=== PATIENT | male | born 1950 | race Caucasian/White ===

== ENCOUNTER 2020-03-11 06:45 | Outpatient (REF) | payer MEDICARE, OTHER, SELFPAY ==
[2020-03-11 11:22] LABS: MANUAL DIFF FLAG NO
[2020-03-11 11:32] LABS: Basophils Absolute Auto 0.1 X10*3/uL (0.0-0.2); Basophils Percent Auto 1.2 % (0-2); Eosinophils Absolute Auto 0.5 X10*3/uL (0.0-0.4); Eosinophils Percent Auto 5.6 % (0-4); Hemoglobin 12.6 g/dl (14.0-18.0); Imm Gran Abs Auto 0.06 X10*3/uL (0.00-0.03); Imm Gran Pct Auto 0.7 % (0.0-0.4); Lymphocytes Percent Auto 23.7 % (20-40); Mean Corpuscular HGB Conc 32.3 g/dl (31.0-36.0); Mean Corpuscular Hemoglobin 30.9 pg (27.0-33.0); Mean Corpuscular Volume 95.6 fL (80-98); Mean Platelet Volume 12.3 fL (9.4-12.4); Monocytes Absolute Auto 0.6 X10*3/uL (0.1-1.2); Monocytes Percent Auto 7.3 % (2-11); Neutrophils Absolute Auto 5.1 X10*3/uL (2.0-8.3); Neutrophils Percent Auto 61.5 % (45-73); Platelet Count 189 X10*3/uL (160-400); Red Blood Count 4.08 X10*6/uL (4.60-5.80); Red Cell Distribution Width 14.6 % (11.0-16.0); White Blood Count 8.3 X10*3/uL (4.8-10.8)
[2020-03-11 11:44] LABS: Glucose Urine UA NEG (NEG); Leukocyte Esterase Urine NEG (NEG); Nitrite Urine NEG (NEG); PH 6.5 (5.0-8.0); Urine Blood NEG (NEG); Urine Ketones NEG (NEG); Urine Protein TRACE MG/DL (NEG-TRACE)
[2020-03-11 11:46] LABS: Appearance Urine CLEAR; Color Urine YELLOW
[2020-03-11 12:11] LABS: Alanine Aminotransferase 19 U/L (0-40); Albumin Level 4.3 g/dL (3.5-5.0); Alkaline Phosphatase 49 U/L (39-117); Anion Gap 16 (12-20); Aspartate Amino Transferase 16 U/L (5-37); Bilirubin Total 0.6 mg/dL (0.0-1.0); Blood Urea Nitrogen 15 mg/dL (9-16); Calcium 8.8 mg/dL (8.4-10.2); Carbon Dioxide 28 mmol/L (22-29); Chloride 102 mmol/L (96-108); Cholesterol 149 mg/dL; Creatinine Urine 153.88 mg/dL; Estimated Glomerular Filt Rate 55; Glucose Fasting 93 mg/dL (60-99); HDL Cholesterol 33 mg/dL; LDL Cholesterol Calculated 47 mg/dl; Magnesium 1.2 mg/dL (1.6-2.6); Microalbum/Creatinine Ratio Ur 46.1 ug/mg cr; Potassium 3.9 mmol/l (3.3-5.1); Prostate Specific Antigen Scr < 0.05 ng/mL (<0.05-4.0); Sodium 142 mmol/L (135-145); Total Protein 6.9 g/dL (6.5-8.0); Triglycerides 347 mg/dL
[2020-03-11 12:16] LABS: Estimated Average Glucose 131 mg/dL; Hemoglobin A1C 151.8303 umol/L; Hemoglobin A1c % 6.2 %
[2020-03-11 12:47] LABS: Reflex LDLD? No
== END 2020-03-11 06:46 | disposition home or self-care (01) ==
LOC: HO.HMGCLDS 06:45
PROVIDERS: PCP Internal Medicine; Visit Provider Internal Medicine
DX: E83.42 Hypomagnesemia (principal); E11.9 Type 2 diabetes mellitus without complications; C61 Malignant neoplasm of prostate; D64.9 Anemia, unspecified; I10 Essential (primary) hypertension; E78.1 Pure hyperglyceridemia
CPT/HCPCS: 36415; 80053; 80061; 81003; 82043; 83036; 83735; 84153; 85025

== ENCOUNTER 2020-03-30 08:10 | Outpatient (REF) | payer MEDICARE, OTHER, SELFPAY ==
[2020-03-30 12:08] LABS: Magnesium 2.1 mg/dL (1.6-2.6)
== END 2020-03-30 08:11 | disposition home or self-care (01) ==
LOC: HO.HMGCLDS 08:10
PROVIDERS: PCP Internal Medicine; Visit Provider Internal Medicine
DX: E83.42 Hypomagnesemia (principal)
CPT/HCPCS: 36415; 83735

== ENCOUNTER 2020-04-29 13:48 | Outpatient (REF) | payer MEDICARE, OTHER, SELFPAY ==
[2020-04-29 17:04] LABS: Blood Urea Nitrogen 31 mg/dL (9-16); Estimated Glomerular Filt Rate 43
== END 2020-04-29 13:49 | disposition home or self-care (01) ==
LOC: HO.HMGCLDS 13:48
PROVIDERS: PCP Internal Medicine; Visit Provider Nurse Practitioner Adult Health
DX: E11.29 Type 2 diabetes mellitus with other diabetic kidney complication (principal)
CPT/HCPCS: 36415; 82565; 84520

== ENCOUNTER 2020-05-13 11:40 | Outpatient (REF) | payer MEDICARE, OTHER, SELFPAY ==
[2020-05-13 14:27] LABS: Blood Urea Nitrogen 20 mg/dL (9-16); Estimated Glomerular Filt Rate 51
== END 2020-05-13 11:41 | disposition home or self-care (01) ==
LOC: HO.HMGCLDS 11:40
PROVIDERS: PCP Internal Medicine; Visit Provider Internal Medicine
DX: R79.89 Other specified abnormal findings of blood chemistry (principal)
CPT/HCPCS: 36415; 82565; 84520

== ENCOUNTER 2020-06-17 10:37 | Outpatient (REF) | payer MEDICARE, OTHER, SELFPAY ==
--- NOTE | ~2020-06-17 | XR_ITS ---
EXAMINATION: XR CHEST CLINICAL INFORMATION: Emphysema COMPARISON: None TECHNIQUE: 2 views of the chest were obtained. FINDINGS: The heart does not appear enlarged. The thoracic aorta is very tortuous, particularly the descending thoracic aorta. The descending thoracic aorta measures 5 cm in AP dimension not accounting for magnification on the lateral view and may be ectatic. The better assessed with CT or MR of the chest. Hilar and mediastinal contours are otherwise unremarkable. There is mild right apical pleural thickening. The lungs are otherwise clear. The lungs are well inflated. There is no pleural effusion or pneumothorax. There are mild degenerative changes of the spine. XR/XR chest 2V IMPRESSION: Tortuous and question ectatic thoracic aorta. Descending thoracic aorta measures 5.1 cm in AP dimension not accounting for magnification on the lateral view questionable for dilatation or ectasia. This could be better assessed with CT or MR. Well-inflated lungs.
== END 2020-06-17 10:38 | disposition home or self-care (01) ==
LOC: HO.XRAY 10:37
PROVIDERS: PCP Internal Medicine; Visit Provider Internal Medicine
DX: J43.9 Emphysema, unspecified (principal); Z87.891 Personal history of nicotine dependence; Z79.899 Other long term (current) drug therapy
CPT/HCPCS: 71046; 99202

== ENCOUNTER 2020-07-12 08:47 | Outpatient (REF) | payer MEDICARE, OTHER, SELFPAY ==
--- NOTE | 2020-07-12 17:02 | PFT_ITS ---
INDICATION: Emphysema. SPIROMETRY: FEV1 to FVC 65% with an FEV1 of 2.49 L, which is 78% predicted and FVC of 3.84 L which is 88% predicted. No significant response to bronchodilators noted. Maximum voluntary ventilation 76% predicted. LUNG VOLUMES: Total lung capacity 91% predicted. DIFFUSION CAPACITY: DLCO 33% predicted. INTERPRETATION: There is an obstructive ventilatory defect consistent with moderate COPD. The patient did not have any significant response to bronchodilators noted. There is a mild decrease in maximum voluntary ventilation secondary to deconditioning. Lung volumes do demonstrate a trend of air trapping consistent with COPD. In addition to that, the patient does have severe diffusion impairment secondary to likely emphysema and other parenchymal lung conditions should be considered. Clinical correlation warranted. MD BIENVENIDO Newman/RENEE / [id number]
== END 2020-07-12 08:48 | disposition home or self-care (01) ==
LOC: HO.RESP 08:47
PROVIDERS: PCP Internal Medicine; Visit Provider Internal Medicine
DX: J43.9 Emphysema, unspecified (principal)
CPT/HCPCS: 94060; 94727; 94729; 99212; P9047

== ENCOUNTER 2021-05-12 09:49 | Outpatient (REF) | payer MEDICARE, OTHER, SELFPAY ==
[2021-05-12 11:20] LABS: Hematocrit 37.1 % (42.0-52.0); Hemoglobin 11.8 g/dl (14.0-18.0); Mean Corpuscular HGB Conc 31.8 g/dl (31.0-36.0); Mean Corpuscular Hemoglobin 27.5 pg (27.0-33.0); Mean Corpuscular Volume 86.5 fL (80.0-98.0); Platelet Count 226 X10*3/uL (160-400); Red Blood Count 4.29 X10*6/uL (4.60-5.80); Red Cell Distribution Width 17.2 % (11.0-16.0); White Blood Count 17.5 X10*3/uL (4.8-10.8)
[2021-05-12 11:22] LABS: Appearance Urine HAZY; Color Urine YELLOW; Glucose Urine UA NEG (NEG); Leukocyte Esterase Urine NEG (NEG); Nitrite Urine NEG (NEG); Urine Blood NEG (NEG); Urine Ketones NEG (NEG); Urine Protein TRACE MG/DL (NEG-TRACE)
[2021-05-12 11:36] LABS: Alanine Aminotransferase 24 U/L (0-40); Albumin Level 4.3 g/dL (3.5-5.0); Alkaline Phosphatase 37 U/L (39-117); Anion Gap 16 (12-20); Aspartate Amino Transferase 11 U/L (5-37); Bilirubin Total 0.8 mg/dL (0.0-1.0); Blood Urea Nitrogen 31 mg/dL (9-16); Calcium 9.7 mg/dL (8.4-10.2); Carbon Dioxide 23 mmol/L (22-29); Chloride 102 mmol/L (96-108); Cholesterol 166 mg/dL; Estimated Glomerular Filt Rate 47; Glucose Fasting 147 mg/dL (60-99); HDL Cholesterol 45 mg/dL; LDL Cholesterol Calculated 82 mg/dl; Magnesium 2.1 mg/dL (1.6-2.6); Potassium 4.9 mmol/L (3.3-5.1); Sodium 136 mmol/L (135-145); Total Protein 7.1 g/dL (6.5-8.0); Triglycerides 198 mg/dL
[2021-05-12 11:59] LABS: Band Neutrophils Percent 4 % (3-5); Eosinophils Absolute Manual 0.4 X10*3/uL (0.0-0.4); Eosinophils Percent Manual 2 % (0-4); Lymphocytes Absolute Manual 1.4 X10*3/uL (1.2-4.9); Lymphocytes Percent Manual 8 % (20-40); Metamyelocytes Absolute 0.5 X10*3/uL; Metamyelocytes Percent 3 %; Monocytes Absolute Manual 0.5 X10*3/uL (0.1-1.2); Monocytes Percent Manual 3 % (2-11); Myelocytes Absolute 0.4 X10*/uL; Myelocytes Percent 2 %; Neutrophils Absolute Manual 14.4 X10*3/uL (2.0-8.3); Neutrophils Percent Manual 78 % (45-73)
[2021-05-12 12:00] LABS: Macrocytosis 1+ (5-14) /OIF; Microcytosis 1+ (5-14) /OIF; Platelet Estimate NORMAL (NORMAL); Platelet Morphology Comment NORMAL; RBC Morphology NOTED
[2021-05-12 12:01] LABS: Ovalocytes 1+ (5-14) /OIF; Tear Drop Cells 1+ (0-2) /OIF
[2021-05-12 18:40] LABS: PSA,Total (Free>4and<10) < 0.05 ng/mL (0.00-4.00)
== END 2021-05-12 09:50 | disposition home or self-care (01) ==
LOC: HO.HMGCLDS 09:49
PROVIDERS: Visit Provider Internal Medicine
DX: D64.9 Anemia, unspecified (principal); I10 Essential (primary) hypertension; E78.1 Pure hyperglyceridemia; E83.42 Hypomagnesemia; Z12.5 Encounter for screening for malignant neoplasm of prostate
CPT/HCPCS: 36415; 80053; 80061; 81003; 83735; 84153; 85007; 85027

== ENCOUNTER 2021-05-19 15:58 | Outpatient (REF) | payer MEDICARE, OTHER, SELFPAY ==
[2021-05-19 16:02] LABS: MANUAL DIFF FLAG NO
[2021-05-19 16:38] LABS: Basophils Percent Auto 0.3 % (0-2); Eosinophils Absolute Auto 0.2 X10*3/uL (0.0-0.4); Eosinophils Percent Auto 1.5 % (0-4); Hematocrit 30.9 % (42.0-52.0); Hemoglobin 10.1 g/dl (14.0-18.0); Imm Gran Abs Auto 0.69 X10*3/uL (0.00-0.03); Imm Gran Pct Auto 4.9 % (0.0-0.4); Lymphocytes Absolute Auto 0.9 X10*3/uL (1.2-4.9); Lymphocytes Percent Auto 6.6 % (20-40); Mean Corpuscular HGB Conc 32.7 g/dl (31.0-36.0); Mean Corpuscular Hemoglobin 28.6 pg (27.0-33.0); Mean Corpuscular Volume 87.5 fL (80.0-98.0); Mean Platelet Volume 10.2 fL (9.4-12.4); Monocytes Absolute Auto 1.3 X10*3/uL (0.1-1.2); Monocytes Percent Auto 8.9 % (2-11); Neutrophils Absolute Auto 10.9 x10*3/uL (2.0-8.3); Neutrophils Percent Auto 77.8 % (45-73); Platelet Count 175 X10*3/uL (160-400); Red Blood Count 3.53 X10*6/uL (4.60-5.80); Red Cell Distribution Width 17.6 % (11.0-16.0)
== END 2021-05-19 15:59 | disposition home or self-care (01) ==
LOC: HO.LNP 15:58
PROVIDERS: Visit Provider Internal Medicine
DX: D64.9 Anemia, unspecified (principal)
CPT/HCPCS: 81206; 81207; 85025

== ENCOUNTER 2021-05-23 10:42 | Outpatient (REF) | payer MEDICARE, OTHER, SELFPAY ==
[2021-05-23 10:45] LABS: MANUAL DIFF FLAG NO
[2021-05-23 11:33] LABS: Basophils Percent Auto 0.1 % (0-2); Eosinophils Absolute Auto 0.2 X10*3/uL (0.0-0.4); Eosinophils Percent Auto 1.1 % (0-4); Hematocrit 31.3 % (42.0-52.0); Imm Gran Abs Auto 0.42 X10*3/uL (0.00-0.03); Imm Gran Pct Auto 3.1 % (0.0-0.4); Lymphocytes Absolute Auto 0.9 X10*3/uL (1.2-4.9); Lymphocytes Percent Auto 6.4 % (20-40); Mean Corpuscular HGB Conc 31.9 g/dl (31.0-36.0); Mean Corpuscular Hemoglobin 27.9 pg (27.0-33.0); Mean Corpuscular Volume 87.4 fL (80.0-98.0); Mean Platelet Volume 10.5 fL (9.4-12.4); Monocytes Percent Auto 7.5 % (2-11); Neutrophils Absolute Auto 11.1 x10*3/uL (2.0-8.3); Neutrophils Percent Auto 81.8 % (45-73); Platelet Count 200 X10*3/uL (160-400); Red Blood Count 3.58 X10*6/uL (4.60-5.80); Red Cell Distribution Width 17.3 % (11.0-16.0); White Blood Count 13.6 X10*3/uL (4.8-10.8)
== END 2021-05-23 10:43 | disposition home or self-care (01) ==
LOC: HO.LNP 10:42
PROVIDERS: Visit Provider Internal Medicine
DX: D64.9 Anemia, unspecified (principal)
CPT/HCPCS: 85025

== ENCOUNTER 2021-06-16 11:04 | Outpatient (REF) | payer MEDICARE, OTHER, SELFPAY ==
[2021-06-16 11:57] LABS: Hematocrit 29.9 % (42.0-52.0); Hemoglobin 9.5 g/dl (14.0-18.0); Mean Corpuscular HGB Conc 31.8 g/dl (31.0-36.0); Mean Corpuscular Hemoglobin 28.3 pg (27.0-33.0); Mean Platelet Volume 10.7 fL (9.4-12.4); Platelet Count 302 X10*3/uL (160-400); Red Blood Count 3.36 X10*6/uL (4.60-5.80)
[2021-06-16 12:22] LABS: Blood Urea Nitrogen 20 mg/dL (9-16); Estimated Glomerular Filt Rate > 60
[2021-06-16 12:36] LABS: Band Neutrophils Percent 4 % (3-5); Eosinophils Absolute Manual 0.2 X10*3/uL (0.0-0.4); Eosinophils Percent Manual 2 % (0-4); Lymphocytes Percent Manual 11 % (20-40); Metamyelocytes Absolute 0.5 X10*3/uL; Metamyelocytes Percent 5 %; Monocytes Absolute Manual 0.6 X10*3/uL (0.1-1.2); Monocytes Percent Manual 7 % (2-11); Myelocytes Absolute 0.1 X10*/uL; Myelocytes Percent 1 %; Neutrophils Absolute Manual 6.6 X10*3/uL (2.0-8.3); Neutrophils Percent Manual 69 % (45-73); Promyelocytes Absolute 0.1 X10*3/uL; Promyelocytes Percent 1 %
[2021-06-16 12:40] LABS: Platelet Estimate NORMAL (NORMAL); Platelet Morphology Comment NORMAL
[2021-06-16 12:41] LABS: Macrocytosis 1+ (5-14) /OIF; Ovalocytes 1+ (5-14) /OIF; Polychromasia 1+ (0-2) /OIF; RBC Morphology NOTED
== END 2021-06-16 11:05 | disposition home or self-care (01) ==
LOC: HO.LNP 11:04
PROVIDERS: Visit Provider Internal Medicine
DX: D72.829 Elevated white blood cell count, unspecified (principal); R79.9 Abnormal finding of blood chemistry, unspecified
CPT/HCPCS: 82565; 84520; 85007; 85025; 85027

== ENCOUNTER 2021-06-23 11:59 | Outpatient (REF) | payer MEDICARE, OTHER, SELFPAY ==
[2021-06-23 12:07] LABS: MANUAL DIFF FLAG NO
[2021-06-23 12:12] LABS: Basophils Percent Auto 0.5 % (0-2); Eosinophils Absolute Auto 0.1 X10*3/uL (0.0-0.4); Eosinophils Percent Auto 1.3 % (0-4); Hematocrit 28.3 % (42.0-52.0); Hemoglobin 8.8 g/dl (14.0-18.0); Imm Gran Abs Auto 0.15 X10*3/uL (0.00-0.03); Imm Gran Pct Auto 1.8 % (0.0-0.4); Lymphocytes Absolute Auto 1.5 X10*3/uL (1.2-4.9); Lymphocytes Percent Auto 17.3 % (20-40); Mean Corpuscular HGB Conc 31.1 g/dl (31.0-36.0); Mean Corpuscular Hemoglobin 28.5 pg (27.0-33.0); Mean Corpuscular Volume 91.6 fL (80.0-98.0); Mean Platelet Volume 10.9 fL (9.4-12.4); Monocytes Percent Auto 12.1 % (2-11); Neutrophils Absolute Auto 5.7 x10*3/uL (2.0-8.3); Platelet Count 201 X10*3/uL (160-400); Red Blood Count 3.09 X10*6/uL (4.60-5.80); Red Cell Distribution Width 20.3 % (11.0-16.0); White Blood Count 8.5 X10*3/uL (4.8-10.8)
== END 2021-06-23 12:00 | disposition home or self-care (01) ==
LOC: HO.LNP 11:59
PROVIDERS: PCP Internal Medicine; Visit Provider Internal Medicine
DX: D72.829 Elevated white blood cell count, unspecified (principal)
CPT/HCPCS: 85025

== ENCOUNTER 2021-07-08 15:47 | Outpatient (REF) | payer MEDICARE, OTHER, SELFPAY ==
[2021-07-08 15:51] LABS: MANUAL DIFF FLAG NO
[2021-07-08 15:55] LABS: Basophils Absolute Auto 0.1 X10*3/uL (0.0-0.2); Basophils Percent Auto 0.9 % (0-2); Eosinophils Absolute Auto 0.2 X10*3/uL (0.0-0.4); Hematocrit 31.8 % (42.0-52.0); Hemoglobin 10.2 g/dl (14.0-18.0); Imm Gran Abs Auto 0.22 X10*3/uL (0.00-0.03); Imm Gran Pct Auto 2.1 % (0.0-0.4); Lymphocytes Absolute Auto 1.6 X10*3/uL (1.2-4.9); Lymphocytes Percent Auto 15.7 % (20-40); Mean Corpuscular HGB Conc 32.1 g/dl (31.0-36.0); Mean Corpuscular Volume 93.5 fL (80.0-98.0); Monocytes Absolute Auto 0.9 X10*3/uL (0.1-1.2); Monocytes Percent Auto 8.8 % (2-11); Neutrophils Absolute Auto 7.2 x10*3/uL (2.0-8.3); Neutrophils Percent Auto 70.5 % (45-73); Platelet Count 304 X10*3/uL (160-400); Red Cell Distribution Width 18.9 % (11.0-16.0); White Blood Count 10.3 X10*3/uL (4.8-10.8)
[2021-07-08 16:08] LABS: Magnesium 1.5 mg/dL (1.6-2.6); Potassium 4.8 mmol/L (3.3-5.1)
== END 2021-07-08 15:48 | disposition home or self-care (01) ==
LOC: HO.LNP 15:47
PROVIDERS: Visit Provider Internal Medicine
DX: E83.42 Hypomagnesemia (principal); D64.9 Anemia, unspecified
CPT/HCPCS: 83735; 84132; 85025

== ENCOUNTER 2021-08-01 15:55 | Outpatient (REF) | payer MEDICARE, OTHER, SELFPAY ==
[2021-08-01 16:01] LABS: MANUAL DIFF FLAG NO
[2021-08-01 16:13] LABS: Basophils Absolute Auto 0.1 X10*3/uL (0.0-0.2); Basophils Percent Auto 0.8 % (0-2); Eosinophils Absolute Auto 0.2 X10*3/uL (0.0-0.4); Eosinophils Percent Auto 1.7 % (0-4); Hematocrit 31.3 % (42.0-52.0); Hemoglobin 9.8 g/dl (14.0-18.0); Imm Gran Abs Auto 0.18 X10*3/uL (0.00-0.03); Lymphocytes Percent Auto 21.6 % (20-40); Mean Corpuscular HGB Conc 31.3 g/dl (31.0-36.0); Mean Corpuscular Hemoglobin 29.3 pg (27.0-33.0); Mean Corpuscular Volume 93.4 fL (80.0-98.0); Mean Platelet Volume 11.3 fL (9.4-12.4); Monocytes Absolute Auto 0.9 X10*3/uL (0.1-1.2); Monocytes Percent Auto 9.7 % (2-11); Neutrophils Absolute Auto 5.9 x10*3/uL (2.0-8.3); Neutrophils Percent Auto 64.2 % (45-73); Platelet Count 272 X10*3/uL (160-400); Red Blood Count 3.35 X10*6/uL (4.60-5.80); White Blood Count 9.2 X10*3/uL (4.8-10.8)
[2021-08-01 16:43] LABS: Magnesium 1.3 mg/dL (1.6-2.6)
== END 2021-08-01 15:56 | disposition home or self-care (01) ==
LOC: HO.LNP 15:55
PROVIDERS: Visit Provider Internal Medicine
DX: D64.9 Anemia, unspecified (principal); E83.42 Hypomagnesemia
CPT/HCPCS: 83735; 85025

== ENCOUNTER 2021-08-12 11:43 | Outpatient (REF) | payer MEDICARE, OTHER, SELFPAY ==
[2021-08-12 11:47] LABS: MANUAL DIFF FLAG NO
[2021-08-12 12:37] LABS: Basophils Absolute Auto 0.1 X10*3/uL (0.0-0.2); Basophils Percent Auto 0.6 % (0-2); Eosinophils Absolute Auto 0.1 X10*3/uL (0.0-0.4); Eosinophils Percent Auto 0.6 % (0-4); Hematocrit 32.8 % (42.0-52.0); Hemoglobin 10.2 g/dl (14.0-18.0); Imm Gran Abs Auto 0.17 X10*3/uL (0.00-0.03); Imm Gran Pct Auto 1.3 % (0.0-0.4); Lymphocytes Absolute Auto 1.7 X10*3/uL (1.2-4.9); Lymphocytes Percent Auto 13.4 % (20-40); Mean Corpuscular HGB Conc 31.1 g/dl (31.0-36.0); Mean Corpuscular Hemoglobin 29.2 pg (27.0-33.0); Mean Platelet Volume 11.4 fL (9.4-12.4); Monocytes Absolute Auto 1.2 X10*3/uL (0.1-1.2); Monocytes Percent Auto 9.6 % (2-11); Neutrophils Absolute Auto 9.4 x10*3/uL (2.0-8.3); Neutrophils Percent Auto 74.5 % (45-73); Platelet Count 300 X10*3/uL (160-400); Red Blood Count 3.49 X10*6/uL (4.60-5.80); White Blood Count 12.7 X10*3/uL (4.8-10.8)
[2021-08-12 13:03] LABS: Iron 31 mcg/dL (45-160); Magnesium 2.4 mg/dL (1.6-2.6)
[2021-08-12 13:30] LABS: Folate 19.6 ng/mL (> or = 4.0); Vitamin B12 647 pg/mL (200-900)
[2021-08-12 13:34] LABS: Percent Iron Saturation 8 % (15-50); Total Iron Binding Capacity 382 mcg/dL (228-428); Unsaturated Iron Binding 351 ug/dL
== END 2021-08-12 11:44 | disposition home or self-care (01) ==
LOC: HO.LNP 11:43
PROVIDERS: Visit Provider Internal Medicine
DX: D64.9 Anemia, unspecified (principal); E83.42 Hypomagnesemia
CPT/HCPCS: 82607; 82746; 83540; 83735; 85025

== ENCOUNTER 2021-08-29 16:27 | Outpatient (REF) | payer MEDICARE, OTHER, SELFPAY ==
[2021-08-29 16:31] LABS: MANUAL DIFF FLAG NO
[2021-08-29 16:52] LABS: Basophils Absolute Auto 0.1 X10*3/uL (0.0-0.2); Basophils Percent Auto 0.7 % (0-2); Eosinophils Absolute Auto 0.2 X10*3/uL (0.0-0.4); Eosinophils Percent Auto 1.7 % (0-4); Hemoglobin 9.1 g/dl (14.0-18.0); Imm Gran Abs Auto 0.13 X10*3/uL (0.00-0.03); Imm Gran Pct Auto 1.2 % (0.0-0.4); Lymphocytes Absolute Auto 2.1 X10*3/uL (1.2-4.9); Lymphocytes Percent Auto 18.5 % (20-40); Mean Corpuscular HGB Conc 30.3 g/dl (31.0-36.0); Mean Corpuscular Hemoglobin 28.5 pg (27.0-33.0); Mean Platelet Volume 10.9 fL (9.4-12.4); Monocytes Absolute Auto 0.8 X10*3/uL (0.1-1.2); Monocytes Percent Auto 7.5 % (2-11); Neutrophils Absolute Auto 7.8 x10*3/uL (2.0-8.3); Neutrophils Percent Auto 70.4 % (45-73); Platelet Count 385 X10*3/uL (160-400); Red Blood Count 3.19 X10*6/uL (4.60-5.80); White Blood Count 11.1 X10*3/uL (4.8-10.8)
[2021-08-29 17:05] LABS: Magnesium 2.2 mg/dL (1.6-2.6); Potassium 4.9 mmol/L (3.3-5.1)
== END 2021-08-29 16:28 | disposition home or self-care (01) ==
LOC: HO.LNP 16:27
PROVIDERS: Visit Provider Internal Medicine
DX: D64.9 Anemia, unspecified (principal); E78.6 Lipoprotein deficiency; E83.42 Hypomagnesemia
CPT/HCPCS: 83735; 84132; 85025

== ENCOUNTER 2021-11-18 10:50 | Outpatient (REF) | payer MEDICARE, OTHER, SELFPAY ==
[2021-11-18 10:53] LABS: MANUAL DIFF FLAG NO
[2021-11-18 10:58] LABS: Basophils Percent Auto 0.2 % (0-2); Hematocrit 35.2 % (42.0-52.0); Hemoglobin 11.2 g/dl (14.0-18.0); Imm Gran Abs Auto 0.09 X10*3/uL (0.00-0.03); Imm Gran Pct Auto 0.7 % (0.0-0.4); Lymphocytes Absolute Auto 1.1 X10*3/uL (1.2-4.9); Lymphocytes Percent Auto 8.4 % (20-40); Mean Corpuscular HGB Conc 31.8 g/dl (31.0-36.0); Mean Corpuscular Hemoglobin 28.8 pg (27.0-33.0); Mean Corpuscular Volume 90.5 fL (80.0-98.0); Mean Platelet Volume 11.5 fL (9.4-12.4); Monocytes Absolute Auto 0.9 X10*3/uL (0.1-1.2); Monocytes Percent Auto 7.3 % (2-11); Neutrophils Absolute Auto 10.6 x10*3/uL (2.0-8.3); Neutrophils Percent Auto 83.4 % (45-73); Platelet Count 305 X10*3/uL (160-400); Red Blood Count 3.89 X10*6/uL (4.60-5.80); Red Cell Distribution Width 17.8 % (11.0-16.0); White Blood Count 12.7 X10*3/uL (4.8-10.8)
[2021-11-18 11:37] LABS: Estimated Average Glucose 123 mg/dL; Hemoglobin A1c % 5.9 %
[2021-11-18 12:26] LABS: Alanine Aminotransferase 20 U/L (0-40); Albumin Level 4.4 g/dL (3.5-5.0); Alkaline Phosphatase 52 U/L (39-117); Aspartate Amino Transferase 16 U/L (5-37); Bilirubin Direct < 0.2 mg/dL (0.0-0.5); Bilirubin Total < 0.2 mg/dL (0.0-1.0); Cholesterol 125 mg/dL; Glucose Fasting 171 mg/dL (60-99); HDL Cholesterol 36 mg/dL; Iron 35 mcg/dL (45-160); LDL Cholesterol Calculated 43 mg/dl; Magnesium 2.3 mg/dL (1.6-2.6); Percent Iron Saturation 9 % (15-50); Total Iron Binding Capacity 396 mcg/dL (228-428); Triglycerides 233 mg/dL; Unsaturated Iron Binding 361 ug/dL
[2021-11-18 12:39] LABS: Reflex LDLD? No
== END 2021-11-18 10:51 | disposition home or self-care (01) ==
LOC: HO.LNP 10:50
PROVIDERS: Visit Provider Internal Medicine
DX: Z13.89 Encounter for screening for other disorder (principal)
CPT/HCPCS: 80061; 80076; 82947; 83036; 83540; 83735; 85025

== ENCOUNTER 2022-01-10 11:13 | Outpatient (REF) | payer MEDICARE, OTHER, SELFPAY ==
[2022-01-10 11:21] LABS: MANUAL DIFF FLAG NO
[2022-01-10 12:01] LABS: Anion Gap 15 (12-20); Basophils Absolute Auto 0.1 X10*3/uL (0.0-0.2); Basophils Percent Auto 0.9 % (0-2); Carbon Dioxide 24 mmol/L (22-29); Chloride 102 mmol/L (96-108); Eosinophils Absolute Auto 0.2 X10*3/uL (0.0-0.4); Eosinophils Percent Auto 1.6 % (0-4); Hematocrit 30.7 % (42.0-52.0); Hemoglobin 9.5 g/dl (14.0-18.0); Imm Gran Pct Auto 1.9 % (0.0-0.4); Lymphocytes Absolute Auto 1.7 X10*3/uL (1.2-4.9); Lymphocytes Percent Auto 16.1 % (20-40); Magnesium 2.1 mg/dL (1.6-2.6); Mean Corpuscular HGB Conc 30.9 g/dl (31.0-36.0); Mean Corpuscular Hemoglobin 28.8 pg (27.0-33.0); Mean Platelet Volume 11.4 fL (9.4-12.4); Monocytes Absolute Auto 0.9 X10*3/uL (0.1-1.2); Monocytes Percent Auto 8.7 % (2-11); Neutrophils Absolute Auto 7.4 x10*3/uL (2.0-8.3); Neutrophils Percent Auto 70.8 % (45-73); Platelet Count 192 X10*3/uL (160-400); Potassium 5.1 mmol/L (3.3-5.1); Red Cell Distribution Width 17.5 % (11.0-16.0); Sodium 136 mmol/L (135-145); White Blood Count 10.5 X10*3/uL (4.8-10.8)
[2022-01-10 13:36] LABS: Iron 52 mcg/dL (45-160); Percent Iron Saturation 17 % (15-50); Total Iron Binding Capacity 310 mcg/dL (228-428); Unsaturated Iron Binding 258 ug/dL
== END 2022-01-10 11:14 | disposition home or self-care (01) ==
LOC: HO.LNP 11:13
PROVIDERS: Visit Provider Internal Medicine
DX: D64.9 Anemia, unspecified (principal); E83.42 Hypomagnesemia
CPT/HCPCS: 80051; 83540; 83735; 85025

== ENCOUNTER → 2022-01-16 13:41 | Outpatient (REF) | payer MEDICARE, OTHER, SELFPAY ==
--- NOTE | 2022-01-16 13:44 | HM_ITS ---
Procedure: Cardiac event monitor Indication: Dizziness Technique: Patient was worked up to cardiac event monitor for total of 30 days. Very time was 15.2 days with compliance rate of about 50.5%. Quality of recording was adequate Findings: Baseline was normal sinus rhythm with frequent sinus tachycardia, 49% of time heart rate greater than 100 beats per minute. There were no significant pauses or bradycardia noted. There were frequent ventricular arrhythmias detected mostly isolated PVCs accounting for 3% of total beats Patient activated event monitor 9 times without any obvious reported symptoms correlating with sinus rhythm or sinus tachycardia. Conclusion: 1. Baseline was normal sinus rhythm with frequent sinus tachycardia 2. Frequent PVCs, 3% of total beats 3. Patient reported events correlated with sinus rhythm or sinus tachycardia MTDD
== END ==
LOC: HO.CARD 13:41
PROVIDERS: PCP Internal Medicine; Visit Provider Internal Medicine
DX: R42 Dizziness and giddiness (principal)
CPT/HCPCS: 93270

== ENCOUNTER 2022-05-04 13:35 | Outpatient (REF) | payer MEDICARE, OTHER, SELFPAY ==
[2022-05-04 17:01] LABS: Magnesium 2.3 mg/dL (1.6-2.6)
== END 2022-05-04 13:36 | disposition home or self-care (01) ==
LOC: HO.HMGCLDS 13:35
PROVIDERS: PCP Internal Medicine; Visit Provider Internal Medicine
DX: R79.0 Abnormal level of blood mineral (principal)
CPT/HCPCS: 36415; 83735

== ENCOUNTER 2022-06-12 10:46 | Outpatient (REF) | payer MEDICARE, OTHER, SELFPAY ==
[2022-06-12 10:50] LABS: MANUAL DIFF FLAG NO
[2022-06-12 11:02] LABS: Basophils Absolute Auto 0.1 X10*3/uL (0.0-0.2); Basophils Percent Auto 0.9 % (0-2); Eosinophils Absolute Auto 0.2 X10*3/uL (0.0-0.4); Eosinophils Percent Auto 1.7 % (0-4); Hematocrit 33.7 % (42.0-52.0); Hemoglobin 10.5 g/dl (14.0-18.0); Imm Gran Pct Auto 1.1 % (0.0-0.4); Lymphocytes Absolute Auto 1.5 X10*3/uL (1.2-4.9); Lymphocytes Percent Auto 15.8 % (20-40); Mean Corpuscular HGB Conc 31.2 g/dl (31.0-36.0); Mean Corpuscular Hemoglobin 29.3 pg (27.0-33.0); Mean Corpuscular Volume 94.1 fL (80.0-98.0); Mean Platelet Volume 11.2 fL (9.4-12.4); Monocytes Percent Auto 10.6 % (2-11); Neutrophils Absolute Auto 6.5 x10*3/uL (2.0-8.3); Neutrophils Percent Auto 69.9 % (45-73); Platelet Count 315 X10*3/uL (160-400); Red Blood Count 3.58 X10*6/uL (4.60-5.80); White Blood Count 9.3 X10*3/uL (4.8-10.8)
[2022-06-12 11:18] LABS: Estimated Average Glucose 120 mg/dL; Hemoglobin A1c % 5.8 %
[2022-06-12 11:24] LABS: Alanine Aminotransferase 12 U/L (0-40); Albumin Level 3.8 g/dL (3.5-5.0); Alkaline Phosphatase 67 U/L (39-117); Anion Gap 13 (12-20); Aspartate Amino Transferase 9 U/L (5-37); Bilirubin Total 0.6 mg/dL (0.0-1.0); Blood Urea Nitrogen 22 mg/dL (9-16); Carbon Dioxide 27 mmol/L (22-29); Chloride 102 mmol/L (96-108); Cholesterol 133 mg/dL; Estimated Glomerular Filt Rate 27; Glucose Fasting 109 mg/dL (60-99); HDL Cholesterol 26 mg/dL; LDL Cholesterol Calculated 70 mg/dl; Magnesium 1.9 mg/dL (1.6-2.6); Potassium 4.4 mmol/L (3.3-5.1); Sodium 138 mmol/L (135-145); Total Protein 6.2 g/dL (6.5-8.0); Triglycerides 188 mg/dL
[2022-06-12 12:37] LABS: PSA,Total (Free>4and<10) < 0.10 ng/mL (0.00-4.00)
== END 2022-06-12 10:47 | disposition home or self-care (01) ==
LOC: HO.LNP 10:46
PROVIDERS: Visit Provider Internal Medicine
DX: Z12.5 Encounter for screening for malignant neoplasm of prostate (principal); E11.9 Type 2 diabetes mellitus without complications; D64.9 Anemia, unspecified; I10 Essential (primary) hypertension; E78.6 Lipoprotein deficiency; E78.1 Pure hyperglyceridemia
CPT/HCPCS: 80053; 80061; 83036; 83735; 84153; 85025

== ENCOUNTER 2022-10-13 07:30 | Outpatient (REF) | payer MEDICARE, OTHER, SELFPAY ==
[2022-10-13 12:46] LABS: Estimated Average Glucose 123 mg/dL; Hemoglobin A1c % 5.9 % (<6.0)
[2022-10-13 13:28] LABS: Alanine Aminotransferase 11 U/L (0-40); Alkaline Phosphatase 58 U/L (39-117); Aspartate Amino Transferase 17 U/L (5-37); Bilirubin Direct 0.1 mg/dL (0.0-0.5); Bilirubin Total 0.3 mg/dL (0.0-1.0); Glucose Fasting 103 mg/dL (60-99); Total Protein 6.9 g/dL (6.5-8.0)
[2022-10-13 13:30] LABS: Cholesterol 137 mg/dL (<200); HDL Cholesterol 32 mg/dL (>40); LDL Cholesterol Calculated 67 mg/dL (<100); Triglycerides 193 mg/dL (<150)
[2022-10-13 15:51] LABS: Reflex LDLD? No
== END 2022-10-13 07:31 | disposition home or self-care (01) ==
LOC: HO.LNP 07:30
PROVIDERS: Visit Provider Internal Medicine
DX: E11.9 Type 2 diabetes mellitus without complications (principal); E78.6 Lipoprotein deficiency
CPT/HCPCS: 80061; 80076; 82947; 83036

== ENCOUNTER 2022-12-19 13:39 | Outpatient (REF) | payer MEDICARE, OTHER, SELFPAY ==
[2022-12-19 16:36] LABS: Blood Urea Nitrogen 19 mg/dL (9-16); Estimated Glomerular Filt Rate 32
== END 2022-12-19 13:40 | disposition home or self-care (01) ==
LOC: HO.HMGCLDS 13:39
PROVIDERS: PCP Internal Medicine; Visit Provider Internal Medicine
DX: R79.89 Other specified abnormal findings of blood chemistry (principal)
CPT/HCPCS: 36415; 82565; 84520

== ENCOUNTER 2023-02-26 07:43 | Outpatient (REF) | payer MEDICARE, OTHER, SELFPAY | END 2023-02-26 07:44 | disposition home or self-care (01) | LOC: HO.HMGCLDS 07:43 | PROVIDERS: PCP Internal Medicine; Visit Provider Internal Medicine | DX: R79.89 Other specified abnormal findings of blood chemistry (principal) | CPT/HCPCS: 36415; 82565; 85025 ==

== ENCOUNTER 2023-04-23 11:05 | Outpatient (REF) | payer MEDICARE, OTHER, SELFPAY ==
--- NOTE | ~2023-04-23 | XR_ITS ---
EXAMINATION: XR CHEST CLINICAL INFORMATION: Bronchitis. COMPARISON: 06/17/2020 TECHNIQUE: 2 views of the chest were obtained. FINDINGS: The lungs are are hyperexpanded. There is flattening of the hemidiaphragms. There is basilar atelectasis. There is stable tortuosity and dilatation of the thoracic aorta. Cardiac silhouette is obscured. No pleural effusion. A metallic density is partially imaged projecting over the upper abdomen on the lateral projection. XR/XR chest 2V IMPRESSION: Stable examination. No acute abnormality.
== END 2023-04-23 11:06 | disposition home or self-care (01) ==
LOC: HO.HMGCX 11:05
PROVIDERS: PCP Internal Medicine; Visit Provider Internal Medicine
DX: J40 Bronchitis, not specified as acute or chronic (principal)
CPT/HCPCS: 71046

== ENCOUNTER 2023-11-05 10:34 | Outpatient (REF) | payer MEDICARE, OTHER, SELFPAY ==
[2023-11-05 10:38] LABS: MANUAL DIFF FLAG NO
[2023-11-05 11:10] LABS: Basophils Absolute Auto 0.1 X10*3/uL (0.0-0.2); Basophils Percent Auto 0.9 % (0-2); Eosinophils Absolute Auto 0.1 X10*3/uL (0.0-0.4); Eosinophils Percent Auto 1.2 % (0-4); Hematocrit 41.6 % (42.0-52.0); Hemoglobin 13.4 g/dl (14.0-18.0); Imm Gran Abs Auto 0.12 X10*3/uL (0.00-0.03); Lymphocytes Percent Auto 17.2 % (20-40); Mean Corpuscular HGB Conc 32.2 g/dl (31.0-36.0); Mean Corpuscular Hemoglobin 29.5 pg (27.0-33.0); Mean Corpuscular Volume 91.6 fL (80.0-98.0); Mean Platelet Volume 11.3 fL (9.4-12.4); Monocytes Percent Auto 8.8 % (2-11); Neutrophils Absolute Auto 8.3 x10*3/uL (2.0-8.3); Neutrophils Percent Auto 70.9 % (45-73); Platelet Count 199 X10*3/uL (160-400); Red Blood Count 4.54 X10*6/uL (4.60-5.80); Red Cell Distribution Width 15.4 % (11.0-16.0); White Blood Count 11.8 X10*3/uL (4.8-10.8)
[2023-11-05 11:13] LABS: Appearance Urine Clear; Color Urine Straw; Glucose Urine UA >=1000 mg/dL (Negative); Leukocyte Esterase Urine Negative (Negative); Nitrite Urine Negative (Negative); UMIC TRIGGER UACC YES; Urine Blood Negative (Negative); Urine Ketones Negative (Negative); Urine Protein Trace mg/dL (Neg-Trace)
[2023-11-05 11:19] LABS: Estimated Average Glucose 128 mg/dL; Hemoglobin A1c % 6.1 % (<6.0)
[2023-11-05 11:26] LABS: Alanine Aminotransferase 14 U/L (0-40); Albumin Level 4.3 g/dL (3.5-5.0); Alkaline Phosphatase 61 U/L (39-117); Anion Gap 13 (12-20); Aspartate Amino Transferase 15 U/L (5-37); Bilirubin Total 0.9 mg/dL (0.0-1.0); Blood Urea Nitrogen 17 mg/dL (9-16); Calcium 9.5 mg/dL (8.4-10.2); Carbon Dioxide 29 mmol/L (22-29); Chloride 103 mmol/L (96-108); Cholesterol 124 mg/dL (<200); Estimated Glomerular Filt Rate 45; Glucose Fasting 109 mg/dL (60-99); HDL Cholesterol 35 mg/dL (>40); LDL Cholesterol Calculated 42 mg/dL (<100); Potassium 4.6 mmol/L (3.3-5.1); Sodium 140 mmol/L (135-145); Total Protein 7.1 g/dL (6.5-8.0); Triglycerides 237 mg/dL (<150)
[2023-11-05 11:31] LABS: Bacteria Urine None Seen (None Seen); Hyaline Casts Urine 0-2 /LPF (0-2); RBC Urine 0-2 /HPF (0-2); Squamous Epithelial Cell Urine 0-2 /HPF (0-2); WBC Urine 0-5 /HPF (0-5)
[2023-11-05 11:43] LABS: PSA,Total (Free>4and<10) < 0.10 ng/mL (0.00-4.00)
[2023-11-05 12:55] LABS: Creatinine Urine 82.51 mg/dL; Microalbum/Creatinine Ratio Ur 99.3 ug/mg cr (<30)
== END 2023-11-05 10:35 | disposition home or self-care (01) ==
LOC: HO.LNP 10:34
PROVIDERS: Visit Provider Internal Medicine
DX: E11.9 Type 2 diabetes mellitus without complications (principal); D64.9 Anemia, unspecified; I10 Essential (primary) hypertension; E83.42 Hypomagnesemia; Z12.5 Encounter for screening for malignant neoplasm of prostate
CPT/HCPCS: 80053; 80061; 81001; 82043; 82570; 83036; 84153; 85025

== ENCOUNTER 2024-03-06 13:58 | Outpatient (REF) | payer MEDICARE, OTHER, SELFPAY ==
--- NOTE | ~2024-03-06 | XR_ITS ---
EXAMINATION: XR CHEST CLINICAL INFORMATION: J40 BRONCHITIS COMPARISON: X-ray dated April 23, 2023. TECHNIQUE: 2 views of the chest were obtained. FINDINGS: Hyperinflated lungs and flattening of the diaphragm. No consolidation, pleural effusion or pneumothorax. Cardiomediastinal silhouette demonstrates a tortuosity of the thoracic aorta with calcified plaques on the lateral projection demonstrates a 3 morphology pattern. There is small appearance of the heart silhouette, unchanged. Multilevel thoracic and upper lumbar spondylosis. There is a stent likely in the abdominal aorta. XR/XR chest 2V IMPRESSION: No acute airspace disease. Stable chest. Electronically signed by: Que Lopez MD 03/07/2024 12:12 PM EST
== END 2024-03-06 13:59 | disposition home or self-care (01) ==
LOC: HO.HMGCX 13:58
PROVIDERS: PCP Internal Medicine; Visit Provider Internal Medicine
DX: M51.9 Unspecified thoracic, thoracolumbar and lumbosacral intervertebral disc disorder (principal)
CPT/HCPCS: 71046

== ENCOUNTER → 2024-03-06 14:06 | Outpatient (BNV) | payer MEDICARE, OTHER, SELFPAY | PROVIDERS: PCP Internal Medicine; Visit Provider Radiology Diagnostic Radiology | DX: J40 Bronchitis, not specified as acute or chronic (principal) | CPT/HCPCS: 71046 ==

== ENCOUNTER 2024-05-05 07:11 | Outpatient (REF) | payer MEDICARE, OTHER, SELFPAY ==
--- OUTSIDE RECORDS SUMMARY | 2024-05-05 07:14 | XMS_ITS ---
Author Organization Kiko Coats MD Address [address] [place], [place] [id number] Care Team Providers Care Tool Machine Setup Operator Name Role Phone Jorge LTian Primary Care Provider [phone] Allergies No Known Allergies REASON FOR VISIT coughing, congested Tested negative for Covid this AM, c/o nonproductive cough congestion x 2 weeks, Video [phone] Medications Medication SIG (Take, Route, Frequency, Duration) Notes Start Date End Date Status PreserVision AREDS 2 - as directed Orally Active Vitamin C 500 MG as directed Orally Active predniSONE 10 MG 1 tablet with food o r milk Orally 4 tabs for 4 days, 3 tabs for 4 days, 2 tbs for 4 days, and 1 tab for 4 days for 14 days 02/25/2024 Active ProAir HFA 108 (90 Base) MCG/ACT 2 puffs as needed Inhalation every 4 hrs for 30 days Not-Taking Betamethasone Dipropionate 0.05 % as directed Externally daily for 30 days 02/10/2011 Not-Taking Ipratropium-Albuterol 0.5-2.5 (3) MG/3ML INHALE 1 VIAL EVERY 4 HOURS NEEDED INHALATION EVERY 6 HRS 30 DAYS Active valACYclovir HCl 1 GM TAKE 2 TABLETS BY MOUTH EVERY 12 HOURS for 3 Not-Taking Qvar RediHaler 80 MCG/ACT TAKE 1 PUFF BY MOUTH TWICE A DAY Not-Taking Hydrocod Pravin-Chlorphe Pravin ER 10-8 MG/5ML 5 mL as needed Orally every 12 hrs as needed for 10 days 04/26/2023 Not-Taking Albuterol Sulfate HFA 108 (90 Base) MCG/ACT 1 puff as needed Inhalation every 4 hrs 05/07/2023 Not-Takin g Levalbuterol Tartrate 45 MCG/ACT inhale 2 puffs as needed every 4 hours for 30 days Inhalation every 6 hrs Active Stiolto Respimat 2.5-2.5 MCG/ACT INHALE 2 PUFFS INTO THE LUNGS ONCE DAILY Active Jardiance 10 MG 1 tablet Orally Once a day Active Atorvastatin Calcium 40 MG TAKE 1 TABLET BY MOUTH EVERY DAY for 90 Active traMADol HCl 100 MG 1 tablet as needed Orally every 8 hours as needed for 30 days 11/23/2023 Active amLODIPine Besylate 5 MG TAKE 1 TABLET B Y MOUTH ONCE A DAY FOR 30 DAY(S) Orally Once a day Active Magnesium Oxide -Mg Supplement 400 (240 Mg) MG TAKE 2 TABLETS BY MOUTH ONCE DAILY WITH FOOD FOR 30 DAYS Active Pantoprazole Sodium 40 MG 1 tablet Orall y Once a day Active Ferrous Gluconate 324 (38 Fe) MG 1 tablet Orally once a day Active Carvedilol 25 MG 1 tablet with food Orally Twice a day Active Aspir-81 81 MG 1 tablet Orally Once a day for 30 day(s) Active Levalbuterol Tartrate 45 MCG/ACT 1 puff as needed Inhalation every 6 hrs for 30 days 03/08/2023 Active Cialis 20 MG 1 tablet Orally Once a day Active Triamcinolone Acetonide 0.5 % 1 application Externally Once a day for 14 days 11/15/2020 Active Multi Vitamin Daily - 1 tablet Orally On ce a day for 30 day(s) Active Problems Problem Type SNOMED Code ICD Code Onset Dates Problem Status W/U Status Risk Notes Problem [id number] COPD with exacerbation (J44.1) Active confirmed Vital Signs Height 70 in 02/25/2024 weight at home is 170 BP 157 /70 No temp Encounters Encounter Location Date Provider Diagnosis Kiko Coats MD [address] [place] [address] [place] [id number] 02/25/2024 Kiko Coats COPD with exacerbation J44.1 Assessments Encounter Date Diagnosis (ICD Code) Assessment Notes Treatment Notes Treatment Clinical Notes Section Notes 02/25/2024 COPD with exacerbation (ICD-10 - J44.1) patient verbalized understanding of medication and directions for use Plan Of Treatment Medication Medication Name Sig Start Date Stop Date Notes predniSONE 10 MG 1 tablet with food o r milk Orally 4 tabs for 4 days, 3 tabs for 4 days, 2 tbs for 4 days, and 1 tab for 4 days for 14 days 02/25/2024 Treatment Notes Assessment Notes COPD with exacerbation patient verbalize d understanding of medication and directions for use Next Appt Details Provider Name:Kiko chatman, 05/09/2024 10:00:00 AM, [address] [place] [address], [address], [phone], Provider Name:Kiko chatman, 11/10/2024 08:00:00 AM, [address] [place] [address], [address], [phone], Provider Name:Kiko chatman, 11/17/2024 10:30:00 AM, [address] [place] [address], [address], [phone], Progress Notes * Mikal DENNYDOB: [birth year] (73 yo M)Acc No.[id number]:02/25/2024 Patient:?Mikal Denny Provider:?Kiko Coats MD :[id number]???Age:73 Y???Sex:Male Kyle e:02/25/2024 Address:[address], [place], [place] Subjective: * Chief Complaints: * ???coughing, congested Teste d negative for Covid this AMC/o nonproductive cough congestion x 2 weeksVideo [phone] * HPI: ???Symptom(s):?Telehealth?Location of provider rendering services:?[address], [address],?Location of patient:?at address listed in demographics for today's visit,?Patient identification confirmed using:?Name, ,?Telehealth method:?Video conference where patient is visible to the provider of care,?Consent:?Patient verbally consented to treatment, Patient verbally consented to billing insurance company, Patient informed of any privacy concerns related to method of visit,?Total time spend talking with patient (minutes)?15.? patient is a 73 yo male video telehealth visit, can't stop coughing for a couple weeks. nothing coming up. * ROS:?General/Constitutional:?Denies?Chills.?Denies?Fatigue.?Denies?Fever.?Denies?Headache.?ENT:?Patient denies?decreased sense of smell , any loss of taste , sore throat.?Denies?Sore throat.?Respiratory:?Patient complaining of?c/o? chest congestion.?Admits?Cough.?Denies?Shortness of breath with exertion.?Denies?Sputum production.?Gastrointestinal:?Denies?Diarrhea.?Denies?Nausea.?Musculoskeletal:?Patient denies?muscle aches.?Peripheral Vascular:?Patient denies?red and blue toes.? * Medical History:? * Surgical History:? * Hospitalization/Major Diagno stic Procedure:? * Medications:?TakingVitamin C 500 MG Capsule as directed Orally PreserVision AREDS 2 - Capsule as directed Orally Aspir-81 81 MG Tablet Delayed Release 1 tablet Orally Once a dayMulti Vitamin Daily - Tablet 1 tablet Orally Once a dayTriamcinolone Acetonide 0.5 % Cream 1 application Externally Once a dayCialis 20 MG Tablet 1 tablet Orally Once a dayLevalbuterol Tartrate 45 MCG/ACT Aerosol 1 puff as needed Inhalation every 6 hrsFerrous Gluconate 324 (38 Fe) MG Tablet 1 tablet Orally once a dayPantoprazole Sodium 40 MG Tablet Delayed Release 1 tablet Orally Once a dayMagnesium Oxide - Mg Supplement 400 (240 Mg) MG Tablet TAKE 2 TABLETS BY MOUTH ONCE DAILY WITH FOOD FOR 30 DAYS amLODIPine Besylate 5 MG Tablet TAKE 1 TABLET BY MOUTH ONCE A DAY FOR 30 DAY(S) Orally Once a dayCarvedilol 25 MG Tablet 1 tablet with food Orally Twice a daytraMADol HCl 100 MG Tablet 1 tablet as needed Orally every 8 hours as neededAtorvastatin Calcium 40 MG Tablet TAKE 1 TABLET BY MOUTH EVERY DAY Jardiance 10 MG Tablet 1 tablet Orally Once a dayLevalbuterol Tartrate 45 MCG/ACT Aerosol inhale 2 puffs as needed every 4 hours for 30 days Inhalation every 6 hrsStiolto Respimat 2.5-2.5 MCG/ACT Aerosol Solution INHALE 2 PUFFS INTO THE LUNGS ONCE DAILY Ipratropium-Albuterol 0.5-2.5 (3) MG/3ML Solution INHALE 1 VIAL EVERY 4 HOURS NEEDED INHALATION EVERY 6 HRS 30 DAYS Taking Vitamin C 500 MG Capsule as directed Orally Taking PreserVision AREDS 2 - Capsule as directed Orally Taking Aspir-81 81 MG Tablet Delayed Release 1 tablet Orally Once a dayTaking Multi Vitamin Daily - Tablet 1 tablet Orally Once a dayTaking Triamcinolone Acetonide 0.5 % Cream 1 application Externally Once a dayTaking Cialis 20 MG Tablet 1 tablet Orally Once a dayTaking Levalbuterol Tartrate 45 MCG/ACT Aerosol 1 puff as needed Inhalation every 6 hrsTaking Ferrous Gluconate 324 (38 Fe) MG Tablet 1 tablet Orally once a dayTaking Pantoprazole Sodium 40 MG Tablet Delayed Release 1 tablet Orally Once a dayTaking Magnesium Oxide -Mg Supplement 400 (240 Mg) MG Tablet TAKE 2 TABLETS BY MOUTH ONCE DAILY WITH FOOD FOR 30 DAYS Taking amLODIPine Besylate 5 MG Tablet TAKE 1 TABLET BY MOUTH ONCE A DAY FOR 30 DAY(S) Orally Once a dayTaking Carvedilol 25 MG Tablet 1 tablet with food Orally Twice a dayTaking traMADol HCl 100 MG Tablet 1 tablet as needed Orally every 8 hours as neededTaking Atorvastatin Calcium 40 MG Tablet TAKE 1 TABLET BY MOUTH EVERY DAY Taking Jardiance 10 MG Tablet 1 tablet Orally Once a dayTaking Levalbuterol Tartrate 45 MCG/ACT Aerosol inhale 2 puffs as needed every 4 hours for 30 days Inhalation every 6 hrsTaking Stiolto Respimat 2.5-2.5 MCG/ACT Aerosol Solution INHALE 2 PUFFS INTO THE LUNGS ONCE DAILY Taking Ipratropium-Albuterol 0.5-2.5 (3) MG/3ML Solution INHALE 1 VIAL EVERY 4 HOURS NEEDED INHALATION EVERY 6 HRS 30 DAYS Not-Taking/PRNAlbuterol Sulfate HFA 108 (90 Base) MCG/ACT Aerosol Solution 1 puff as needed Inhalation every 4 hrsHydrocod Pravin-Chlorphe Pravin ER 10-8 MG/5ML Suspension Extended Release 5 mL as needed Orally every 12 hrs as neededQvar RediHaler 80 MCG/ACT Aerosol Breath Activated TAKE 1 PUFF BY MOUTH TWICE A DAY valACYclovir HCl 1 GM Tablet TAKE 2 TABLETS BY MOUTH EVERY 12 HOURS Betamethasone Dipropionate 0.05 % Cream as directed Externally dailyProAir HFA 108 (90 Base) MCG/ACT Aerosol Solution 2 puffs as needed Inhalation every 4 hrsMedication List reviewed and reconciled with the patientNot-Taking/PRN Albuterol Sulfate HFA 108 (90 Base) MCG/ACT Aerosol Solution 1 puff as needed Inhalation every 4 hrsNot-Taking/PRN Hydrocod Pravin-Chlorphe Pravin ER 10-8 MG/5ML Suspension Extended Release 5 mL as needed Orally every 12 hrs as neededNot-Taking/PRN Qvar RediHaler 80 MCG/ACT Aerosol Breath Activated TAKE 1 PUFF BY MOUTH TWICE A DAY Not-Taking/PRN valACYclovir HCl 1 GM Tablet TAKE 2 TABLETS BY MOUTH EVERY 12 HOURS Not- Taking/PRN Betamethasone Dipropionate 0.05 % Cream as directed Externally dailyNot- Taking/PRN ProAir HFA 108 (90 Base) MCG/ACT Aerosol Solution 2 puffs as needed Inhalation every 4 hrsMedication List reviewed and reconciled with the patient * Allergies:?N.K.D.A.yes[Aller gies Verified] Objective: * Vitals:?Ht: 70 weight at home is 170 BP 157/70 No temp. * Examination: ???General Examination: ?GENERAL APPEARANCE:?alert, well hydrated, in no distress.?HEAD:?normocephalic.? Assessment: * Assessment: 1.?COPD with exacerbation - J44.1 (Primary)? Plan: * Treatment: * Procedure Codes:? * * Sign off status: Completed true * Provider:?Kiko Coats MD Date:?0 02/25/2024 Generated for Maryam fontaine/Pamela/eTransmitting on:?05/05/2024 07:14 AM EDT History and Physical Notes * HPI (History of Present Illness) Category Sub-Category Detail Notes Category Not es Symptom(s) Telehealth Location of [facility] rendering services:: [address], [address] patient is a 73 yo male video telehealth visit, can't stop coughing for a couple weeks. nothing coming up. Location of patient:: at address listed in demographics for today's visit Patient identification confirmed using:: Name, Telehealth method:: Video co nference where patient is visible to the provider of care Consent:: Patient verbally c onsented to treatment, Patient verbally consented to billing insurance company, Patient informed of any privacy concerns related to method of visit Total time spend talking with patient (m inutes): 15 Examination Category Sub-Category Detail Notes Category Not es General Examination GENERAL APPEARANCE: alert, w ell hydrated, in no distress HEAD: normocephalic
--- OUTSIDE RECORDS SUMMARY | 2024-05-05 07:15 | XMS_ITS ---
Author Name [facility] [facility] [place] Address [address] [place] [address] Care Team Providers Care Lube Man Name Role Phone TAMRA HINSON Primary [facility] Insurance Providers: All historical [...] POINT OF SERVICE [facility] Jun 04, 2017 [id number] DENISHA QUENTIN PATIENT [employer] POINT OF SERVICE [facility] CHOI E Feb 19, 2017 [id number] [phone] DENISHA QUENTIN PATIENT [employer] PRESCRIPT ION [facility] Jun 04, 2017 [id number] QUENTIN DENNY PATIENT [employer] PRESCRIPT ION [facility] ANDLUIZ RS Feb 19, 2017 [id number] DENISHA QUENTIN PATIENT [employer] PRESCRIPT ION [facility] Feb 19, 2017 [id number] QUENTIN DENNY PATIENT [employer] PRESCRIPT ION [facility] Feb 19, 2017 [phone] QUENTIN DENNY PATIENT [employer] PRESCRIPT ION RASHEEDA ANDLUIZ RS Aug 19, 2005 [id number] [phone] QUENTIN DENNY PATIENT [employer] PRESCRIPT ION RASHEEDA ANDLUIZ RS Aug 19, 2005 [id number] [phone] QUENTIN DENYN PATIENT 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 POINT OF SERVICE [facility] Feb 19, 2017 [id number] [phone] QUENTIN DENNY PATIENT 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 POINT OF SERVICE [facility] Feb 19, 2017 [id number] QUENTIN DENNY PATIENT 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 POINT OF SERVICE [facility] Feb 19, 2017 [id number] [phone] QUENTIN DENNY PATIENT NAMHANDLE RS BENEFIT PLAN POINT OF SERVICE [facility] Jun 04, 2017 [id number] QUENTIN DENNY PATIENT NAMHANDLE RS BENEFIT PLAN PREFERRED PROVIDER ORGANIZAT ION (PPO) STAND TRACI Aug 19, 2005 [id number] [id number] [phone] QUENTIN DENNY PATIENT MEDICARE ([facility]) MEDICARE () PART B Apr 19, 2013 PART B [id number] QUENTIN DENNY PATIENT MEDICARE ([facility]) MEDICARE () PART B Apr 19, 2013 PART B [id number] QUENTIN DENNY PATIENT MEDICARE ([facility]) MEDICARE () PART B Apr 19, 2013 PART B [id number] [phone] QUENTIN DENNY PATIENT MEDICARE ([facility]) MEDICARE () PART B Apr 19, 2013 PART B [id number] [id number] QUENTIN DENNY PATIENT MEDICARE ([facility]) MEDICARE () PART A Mar 22, 2013 PART A [id number] QUENTIN DENNY PATIENT MEDICARE (WNR) MEDICARE (M) PART A Mar 22, 2013 PART A [id number] [phone] QUENTIN DENNY PATIENT MEDICARE (WNR) MEDICARE (M) PART A Mar 22, 2013 PART A [id number] QUENTIN DENNY PATIENT MEDICARE (WNR) MEDICARE (M) PART A Mar 22, 2013 PART A [id number] QUENTIN DENNY PATIENT MEDICARE (WNR) MEDICARE (M) PART A Mar 22, 2013 PART A [id number] QUENTIN DENNY PATIENT MEDICARE (WNR) MEDICARE (M) PART B Mar 22, 2013 PART B [id number] UQENTIN DENNY PATIENT Selected Encounter This section includes the information on record at [place] for the Encounter. Date/Time Encounter Type Encounter Description Reason Provider Source Feb 26, 2024 09:00 AM OFFICE O/P EST MOD 30 MIN RENAL/NEPHROL(EXCE PT DIALYSIS) ICD-10-CM N18.31 Chronic kidney disease, stage 3a JEFFREY STEVENS [facility] Encounter Template Text not used by [place] Assessments - Encounter Diagnoses This section includes the primary and secondary diagnoses documented for the Encounter. Date/Time Primary/Secondary Diagnosis Diagnosis Name Provider Source Feb 27, 2024 11:57 AM PRIMARY Chronic kidney disease, stage 3a NEY STEVENS [facility] Feb 27, 2024 11:57 AM SECONDARY Iron deficiency anemia, unspecified [facility] Feb 27, 2024 11:57 AM SECONDARY Mixed hyperlipidemia NEY STEVENS [facility] Plan of Treatment: Future Appointments (+ 6 months) and Future Tests (+/- 45 days) The Plan of Treatment section includes future care activities for the patient from all [place] treatmentfacilities. This section includes future appointments and future orders which are active, pending or scheduled. Future Appointments This section includes appointments that were scheduled to occur 6 months from the date of the Encounter, up to a maximum of 20 appointments. The data comes from all [place] treatment facilities. Appointment Date/Time Appointment Type Appointme nt Facility Name Apr 04, 2024 09:30 AM AMBULATORY - REHAB MEDICIN E [place] Apr 24, 2024 10:00 AM AMBULATORY - MEDICINE [place] [facility] [place] [facility] May 05, 2024 02:00 PM AMBULATORY - REHAB MEDICIN [place] May 06, 2024 11:00 AM AMBULATORY - MEDICINE [place] [facility] [place] [facility] Jul 23, 2024 09:30 AM AMBULATORY - MEDICINE IN [place] [facility] [facility] Lab Results: +/- 30 days of the encounter This section includes the Chemistry and Hematology Lab Results on record with [place] for the patient. Radiology Reports and Pathology Reports are provided separately, in subsequent sections. Lab Results This section contains the Chemistry/Hematology Results that were resulted 30 days before or 30 daysafter the date of the Encounter. Date/Time Source Result Type Result - Unit Interpretation Reference Range Comment Feb 14, 2024 09:02 AM [facility] MICROALBUMIN CREATININE RATIO PANEL Specimen Type: URINE No comment entered. Ordering Provider: NEY STEVENS Report Released Date/Time: Aug 15, 2023 09:18 AM Reporting Lab: [facility] [place] [facility] [address] [facility] [address] Performing Lab: [facility] [place] [facility] [address] [facility] [address] MICROALBUMIN/C REATININE RATIO 186.3 mg/g H 0-29.9 MICROALBUMIN,Q UANTITATIVE 5.5 mg/dL RR UNAVAIL CREATININE URINE 29.53 mg/dL Feb 14, 2024 08:50 AM [facility] F[place] Specimen Type: SERUM No comment entered. Ordering Provider: NEY STEVENS Report Released Date/Time: Aug 15, 2023 09:18 AM Reporting Lab: [place] [facility] [place] [place] [facility] [address] [facility] [address] Performing Lab: [facility] [place] [address] [address] FERRITIN 81 ng/mL 20-300 Feb 14, 2024 08:50 AM [facility] CBC Specimen Type: BLOOD No comment entered. Ordering Provider: NEY STEVENS Report Released Date/Time: Aug 15, 2023 09:18 AM Reporting Lab: [facility] [address] [facility] [address] Performing Lab: [address] [address] WBC 7.79 10*3/uL 4.50-11.00 RBC 4.54 10*6/uL 4.23-5.66 HGB 13.8 g/dL 12.8-17 HCT 41.9 39.2-50.4 MCV 92.3 fL 82-99 MCHC 32.9 g/dL 30.8-35.1 PLT 177 10*3/uL 140-360 RDW-CV 14.9 12.0-16.0 MCH 30.4 pg 26.2-32.6 Feb 14, 2024 08:50 AM [facility] IRON & TIBC PANEL Specimen Type: SERUM No comment entered. Ordering Provider: NEY STEVENS Report Released Date/Time: Aug 15, 2023 09:18 AM Reporting Lab: [address] [address] Performing Lab: [address] [address] TIBC 312 ug/dL 204-475 IRON 74 ug/dL 40-160 Transferrin Saturation 23.8 20.0-50.0 Transferrin (TRF) 236 mg/dL 200-360 Feb 14, 2024 08:50 AM [facility] BASIC METABOLIC PANEL (non-fasting) Specimen Type: SERUM No comment entered. Ordering Provider: NEY STEVENS Report Released Date/Time: Aug 15, 2023 09:18 AM Reporting Lab: [facility] [address] [facility] [address] Performing Lab: [address] [address] UREA NITROGEN 21 mg/dL 7-25 GLUCOSE 123 [...] 103 144/71 20 97 0 170 24 [place] [facility] [facility] Social History: Smoking Status (Most current) and Tobacco Use (All prior to encounter date) This section includes the most current, and the historical, smoking and tobacco- related health factors from the [place] facility where the Encounter took place. Current Smoking Status This section includes the most current smoking, or tobacco-related health factor, from the [place] facility where the Encounter took place. Date/Time Current Smoking Status Comment [facility] Apr 24, 2023 10:30 AM VA-TOBACCO FORMER USER [facility] Tobacco Use History This section includes a history of the smoking, or tobacco-related health factors, that were collected on or before the date of the Encounter. The data comes from the [place] facility where the Encounter took place. Date/Time Smoking Status/Tobac co Use Comment Facility Apr 24, 2023 10:30 AM VA-TOBACCO QUIT 15 YRS OR MORE IN [facility] [place] [facility] Mar 22, 2022 11:00 AM VA-TOBACCO FORMER USER IN [facility] [place] [facility] Mar 22, 2022 11:00 AM VA-TOBACCO QUIT 15 YRS OR MORE [facility] [place] [facility] Oct 21, 2020 09:30 AM VA-TOBACCO NEVER USED [facility] [place] [facility] Nov 04, 2019 08:30 AM VA-TOBACCO FORMER USER [facility] [place] [facility] Nov 04, 2019 08:30 AM VA-TOBACCO QUIT 15 YRS OR MORE IN [facility] [place] [facility] May 06, 2018 08:27 AM VA-TOBACCO FORMER USER [facility] [place] [facility] May 06, 2018 08:27 AM VA-TOBACCO QUIT 15 YRS OR MORE [facility] Nov 05, 2017 09:54 AM QUIT TOBACCO USE > 7 YEARS AGO [facility] June 28, 2016 09:36 AM QUIT TOBACCO USE > 7 YEARS AGO [facility] Mar 15, 2015 10:54 AM LIFETIME NON-TOBACCO USER quit cigs. 1998 [facility] Nov 14, 2004 02:40 PM HISTORY OF SMOKING [facility] May 18, 2003 09:05 AM HISTORY OF SMOKING quit August 1998 [facility] Jun 09, 2002 08:40 AM HISTORY OF SMOKING quit . [facility] Jun 09, 2002 08:40 AM QUIT TOBACCO USE > 7 YEARS AGO [facility] Jun 10, 2001 08:50 AM HISTORY OF SMOKING quit 1998 [facility] Jun 10, 2001 08:50 AM QUIT TOBACCO USE 1-7 YEARS AGO [facility] Jun 08, 2000 02:55 PM HISTORY OF SMOKING quit 2yrs ago [facility] Encounter Notes: All associated encounter notes This section contains the clinical notes associated to the Encounter. Date/Time Encounter Note(s) Provider Source Feb 26, 2024 08:24 AM NEPHROLOGY E & M NOTE: LOCAL TITLE: NEPHROLOGY NOTE STANDARD TITLE: NEPHROLOGY E & M NOTE DATE OF NOTE: FEB 26, 2024@08:24 ENTRY DATE: FEB 26, 2024@08:24:47 AUTHOR: SNOW STEVENS EXP COSIGNER: URGENCY: STATUS: COMPLETED Nephrology Note Follow-Up [...] Anemia: the patient has an updated H/H / mcv 92 from . His TIBC was [...] of active outpatient prescriptions dispensed from this [place] (local) and dispensed from another VA or DoD facility (remote) as well as [...] or non-VA provider. /noe/ SNOW STEVENS M.D. APPLICATION SYSTEMS ADMINISTRATOR [employer] Signed: 02/26/2024 09:16 SNOW STEVENS IN [facility]
--- OUTSIDE RECORDS SUMMARY | 2024-05-05 07:15 | XMS_ITS ---
Author Name [facility] [place] [facility] [place] [facility] [place] Address [address] [place] [address] Care Team Providers Care Flue Cleaner Name Role Phone TAMRA HINSON [facility] Insurance Providers: All historical [...] POINT OF SERVICE [facility] Jun 04, 2017 [id number] [phone] [id number] DENISHA QUENTIN PATIENT AETNA POINT OF SERVICE [facility] CHOI E Feb 19, 2017 [id number] DENISHA QUENTIN PATIENT CAREMARK PRESCRIPT ION [facility] Jun 04, 2017 [id number] [phone] QUENTIN DENNY PATIENT CAREMARK PRESCRIPT ION [facility] ANDLUIZ RS Feb 19, 2017 [id number] DENISHA QUENTIN PATIENT CAREMARK PRESCRIPT ION [facility] Feb 19, 2017 [id number] [phone] QUENTIN DENNY PATIENT CAREMARK PRESCRIPT ION [facility] Feb 19, 2017 [id number] [phone] QUENTIN DENNY PATIENT CAREMARK PRESCRIPT ION RASHEEDA CLARKE RS Aug 19, 2005 [id number] QUENTIN DENNY PATIENT CAREMARK PRESCRIPT ION RASHEEDA ANDLUIZ RS Aug 19, 2005 [id number] [phone] QUENTIN DENNY PATIENT 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 POINT OF SERVICE [facility] Feb 19, 2017 [id number] QUENTIN DENNY PATIENT 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 POINT OF SERVICE [facility] Feb 19, 2017 [id number] [id number] [phone] QUENTIN DENYN PATIENT 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 POINT OF SERVICE [facility] Feb 19, 2017 [id number] [phone] QUENTIN DENNY PATIENT NAMHANDLUIZ RS BENEFIT PLAN POINT OF SERVICE [facility] Jun 04, 2017 [id number] QUENTIN DENNY PATIENT NAMHANDLE RS BENEFIT PLAN PREFERRED PROVIDER ORGANIZAT ION (PPO) STAND TRACI Aug 19, 2005 [id number] [phone] QUENTIN DENNY PATIENT MEDICARE ([facility]) MEDICARE () PART B Apr 19, 2013 PART B [id number] QUENTIN DENNY PATIENT MEDICARE ([facility]) MEDICARE () PART B Apr 19, 2013 PART B [id number] QUENTIN DENNY PATIENT MEDICARE ([facility]) MEDICARE () PART B Apr 19, 2013 PART B [id number] [id number] QUENTIN DENNY PATIENT MEDICARE ([facility]) MEDICARE () PART B Apr 19, 2013 PART B [id number] QUENTIN DENNY PATIENT MEDICARE ([facility]) MEDICARE () PART A Mar 22, 2013 PART A [id number] [phone] QUENTIN DENNY PATIENT MEDICARE (WNR) MEDICARE (M) PART A Mar 22, 2013 PART A [id number] [id number] QUENTIN DENNY PATIENT MEDICARE (WNR) MEDICARE (M) PART A Mar 22, 2013 PART A [id number] QUENTIN DENNY PATIENT MEDICARE (WNR) MEDICARE (M) PART A Mar 22, 2013 PART A [id number] QUENTIN DENNY PATIENT MEDICARE (WNR) MEDICARE (M) PART A Mar 22, 2013 PART A [id number] [id number] QUENTIN DENNY PATIENT MEDICARE (WNR) MEDICARE (M) PART B Mar 22, 2013 PART B [id number] QUENTIN DENNY PATIENT Selected Encounter This section includes the information on record at [place] for the Encounter. Date/Time Encounter Type Encounter Description Reason Provider Source Oct 29, 2023 10:00 AM OFFICE O/P EST MOD 30 MIN PRIMARY CARE/MEDICINE ICD-10-CM D50.9 Iron deficiency anemia, unspecified FURCOLO,TAMRA IHE Encounter Template Text not used by [place] Assessments - Encounter Diagnoses This section includes the primary and secondary diagnoses documented for the Encounter. Date/Time Primary/Secondary Diagnosis Diagnosis Name Provider Source Nov 13, 2023 10:37 AM PRIMARY Iron deficiency anemia, unspecified FURCOLO,TAMRA [facility] [place] [facility] Nov 13, 2023 10:37 AM SECONDARY Bilateral primary osteoarthritis of knee FURCOLO,TAMRA [facility] [place] [facility] Nov 13, 2023 10:37 AM SECONDARY Esophageal obstruction FURCOLO,TAMRA [facility] [place] [facility] Nov 13, 2023 10:37 AM SECONDARY Essential (primary) hypertension FURCOLO,TAMRA [facility] [place] [facility] Nov 13, 2023 10:37 AM SECONDARY Mixed hyperlipidemia FURCOLO,TAMRA [facility] [place] [facility] Nov 13, 2023 10:37 AM SECONDARY Occlusion and stenosis of left carotid artery FURCOLO,TAMRA [facility] [place] [facility] Nov 13, 2023 10:37 AM SECONDARY Type 2 diabetes mellitus without complications TAMRA HINSON [facility] Plan of Treatment: Future Appointments (+ 6 months) and Future Tests (+/- 45 days) The Plan of Treatment section includes future care activities for the patient from all [place] treatmentfacilities. This section includes future appointments and future orders which are active, pending or scheduled. Future Appointments This section includes appointments that were scheduled to occur 6 months from the date of the Encounter, up to a maximum of 20 appointments. The data comes from all [place] treatment facilities. Appointment Date/Time Appointment Type Appointme nt Facility Name Jan 11, 2024 08:00 AM AMBULATORY - MEDICINE [facility] Jan 31, 2024 01:30 PM AMBULATORY MEDICINE [facility] Feb 26, 2024 09:00 AM AMBULATORY MEDICINE [facility] Apr 04, 2024 09:30 [facility] Apr 24, 2024 10:00 AM AMBULATORY MEDICINE [facility] Lab Results: +/- 30 days of the encounter This section includes the Chemistry and Hematology Lab Results on record with [place] for the patient. Radiology Reports and Pathology Reports are provided separately, in subsequent sections. Lab Results This section contains the Chemistry/Hematology Results that were resulted 30 days before or 30 daysafter the date of the Encounter. Date/Time Source Result Type Result - Unit Interpretation Reference Range Comment Oct 19, 2023 09:00 AM [facility] HEMOGLOBIN A1C PANEL Specimen Type: BLOOD Comment: Values obtained from A1C measurements can vary. For atypical A1C assays, a reported value of 7.0 could actually be between 6.72 and 7.28 if measured by a reference method. A reported value of 9.0 could actually be between 8.73 and 9.27. Ref: http://www.ngs p.org/CAPdata. asp Ordering Provider: TAMRA HINSON Report Released Date/Time: Oct 09, 2023 12:53 PM Reporting Lab: [address] [address] Performing Lab: [facility] [address] [id number] HEMOGLOBIN A1C 6.0 H 4.0-5.6 Oct 19, 2023 09:00 AM [facility] LIPID PANEL, NON FASTING Specimen Type: SERUM No comment entered. Ordering Provider: TAMRA HINSON Report Released Date/Time: Oct 09, 2023 12:53 PM Reporting Lab: [facility] [address] [address] Performing Lab: [address] [address] CHOLESTEROL 118 mg/dL TRIGLYCERIDE 237 mg/dL H [...] 83 142/80 16 97 0 170 24 [facility] Social History: Smoking Status (Most current) and Tobacco Use (All prior to encounter date) This section includes the most current, and the historical, smoking and tobacco- related health factors from the [place] facility where the Encounter took place. Current Smoking Status This section includes the most current smoking, or tobacco-related health factor, from the [place] facility where the Encounter took place. Date/Time Current Smoking Status Comment [facility] nicole Apr 24, 2023 10:30 AM [place]-TOBACCO QUIT 15 YRS OR MORE [facility] Tobacco Use History This section includes a history of the smoking, or tobacco-related health factors, that were collected on or before the date of the Encounter. The data comes from the [place] facility where the Encounter took place. Date/Time Smoking Status/Tobac co Use Comment Facility Apr 24, 2023 10:30 AM [place]-TOBACCO QUIT 15 YRS OR MORE [facility] Mar 22, 2022 11:00 AM VA-TOBACCO FORMER USER [facility] Mar 22, 2022 11:00 AM VA-TOBACCO QUIT 15 YRS OR MORE [facility] [place] [facility] Oct 21, 2020 09:30 AM VA-TOBACCO NEVER USED [facility] [place] [facility] Nov 04, 2019 08:30 AM VA-TOBACCO FORMER USER [facility] [place] [facility] Nov 04, 2019 08:30 AM VA-TOBACCO QUIT 15 YRS OR MORE [facility] [place] [facility] May 06, 2018 08:27 AM VA-TOBACCO FORMER USER [facility] [place] [facility] May 06, 2018 08:27 AM VA-TOBACCO QUIT 15 YRS OR MORE [facility] [place] [facility] Nov 05, 2017 09:54 AM QUIT TOBACCO USE > 7 YEARS AGO [facility] [place] [facility] June 28, 2016 09:36 AM QUIT TOBACCO USE > 7 YEARS AGO [facility] [place] [facility] Mar 15, 2015 10:54 AM LIFETIME NON-TOBACCO USER quit cigs. 1998 [facility] [place] [facility] Nov 14, 2004 02:40 PM HISTORY OF SMOKING [facility] [place] [facility] May 18, 2003 09:05 AM HISTORY OF SMOKING quit August 1998 [facility] [place] [facility] Jun 09, 2002 08:40 AM HISTORY OF SMOKING quit . [facility] [place] [facility] Jun 09, 2002 08:40 AM QUIT TOBACCO USE > 7 YEARS AGO [facility] [place] [facility] Jun 10, 2001 08:50 AM HISTORY OF SMOKING quit 1998 [facility] [place] [facility] Jun 10, 2001 08:50 AM QUIT TOBACCO USE 1-7 YEARS AGO [facility] [place] [facility] Jun 08, 2000 02:55 PM HISTORY OF SMOKING quit 2yrs ago [facility] Encounter Notes: All associated encounter notes This section contains the clinical notes associated to the Encounter. Date/Time Encounter Note(s) Provider Source Oct 29, 2023 10:19 AM PHYSICIAN NOTE: LOCAL TITLE: MD NOTE STANDARD TITLE: PHYSICIAN NOTE DATE OF NOTE: OCT 29, 2023@10:19 ENTRY DATE: OCT 29, 2023@10:19:11 AUTHOR: TAMRA HINSON EXP COSIGNER: URGENCY: STATUS: COMPLETED QUENTIN DENNY is a 73 year old [place] MALE who is being seen today in primary care for routine follow up. CARE TEAM Community Primary Care Provider: DR. Kiko Gresham, [facility] Specialists: nephrology- Dr. Sethi [facility] Specialists: vascular- Dr. Gomez, [facility] GI- Dr. Kingston Cardiology- DR. Rodriguez [...] is getting ultrasound every 6 months by [facility] 4. Carotid artery stenosis left carotid artery blockage being followed by [facility] vascular 5. Shoulder pain status post cortisone shot in both shoulder January 25, 2017 6. Neck pain arthritis/bony spur Dr. hodge prescribed Celebrex 7. Raynaud's phenomenon 8. Esophageal stricture 9. Type 2 diabetes mellitus (SNOMED CT 96198606) 10. Endoscopy abnormal Grade 4 esophagitis at GE junction Stricture of GE junction Recent EGD shows some reactive changes but no Bernal's esophagus 11. colonoscopy Cecal submucosal hemorrhage diverticulosis 2015--- Diverticulosis--rept in 10 yrs 12. Chronic obstructive lung disease (SNOMED CT 15671619) 13. Diffuse spasm of esophagus (SNOMED CT 81499796) s/p dilatation by Dr [facility]- 14. Chronic Renal disease 15. Hyperlipidemia (SNOMED CT 03322476) 16. Coronary Artery Disease * 17. Psoriasis * 18. Sinus tachycardia (SNOMED CT 29512784) Echocardiogram, showing suggestion of diminished LV complian [...] in 1998 23. Essential hypertension (SNOMED CT 24033411) PAST SURGICAL HISTORY aortic aneurysm repair prostatectomy bilateral TKR FAMILY HISTORY Mother: at age 92, dementia Father: 42 ETOH Siblings: 2 brother - HTN sister- HTN SOCIAL HISTORY Background: born and raised in [place]. 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 Sethi. no longer on lisinopril Hyperlipidemia (SNOMED CT 25462998) Prostate Cancer- s/p prostatectomy >20 years ago Reflux Esophagitis- now on pantorazole 40 mg BID- has needed esophageal stricture dilations with Dr. Kingston Essential hypertension (SNOMED CT 21304248) - elevated today- no longer on lisinopril [...] of active outpatient prescriptions dispensed from this [place] (local) and dispensed from another [place] or [facility] facility (remote) as well as inpatient orders [...] D.O. PHYSICIAN Signed: 10/29/2023 11:25 TAMRA HINSON [facility]
--- OUTSIDE RECORDS SUMMARY | 2024-05-05 07:15 | XMS_ITS | Data Portability ---
Author Organization [place] [facility], [facility] Address [address] [place] [id number] Care Team Providers Care Food And Beverage Associate Name Role Phone EMMANUEL COPELAND Primary Care Provider [facility] OTHER [phone] Assessment Encounter Date Assessment Date Assessment LastModified by Organization Details LastModified Time 12/14/2021 12/14/2021 Time On Scene with Patient: 01:11:27 DDX: cardiac arrhythmia, anemia, electrolyte derangement, UTI, medication reaction Pt is on POD 4 from his surgery with episodes of near syncope yesterday - improved today. Initial vital signs noted with tachycardia. His inpatient course notes consistent higher heart rates from 96-112, even at discharge. His other vital signs are unremarkable. The EKG done on scene was non-diagnostic. Further urine collected from his catheter at the proximal port was tested for infection and unremarkable. Labs done on scene show similar results to his discharge labs on 12/12. NO anemia or electrolyte derangement. His kidney function with some decline 1.9 vs 1.3 at time of discharge. There is some discrepancy with iSTAT when compared to lab machines but this needs to be revisited. He has a follow up with urology. At this time the following recommendations were made: 1. STOP gabapentin. 2. Increase fluid intake. 3. Monitor for continued improving symptoms. 4. Call 911 with any worsening symptoms. 5. Keep follow up with urology and surgeon as planned. Pt was back on the couch at completion of visit. Resp easy, speech clear, conversing without difficulty> His was present in room with patient and appears also in good spirits. Not available 12/14/2021 20:00:14 Plan of Treatment Reminders Order Date Submit Date Provider Last Modified By Organization Details Last Modified Time Details Appointments None recorded. Lab BMP + ionized calcium, serum or plasma 2021 022 ZHOU [facility], [address], [place], [address], 05:01:37 urinalysis , dipstick 2021 022 [email or web address] [facility], [address], [place], [address], 15:29:23 Referral None recorded. Procedures None recorded. Surgeries None recorded. Imaging None recorded. Medication Orders None recorded. Patient TargetsNo targets recorded. Patient Instructions Encounter Date Encounter Id Patient Instructions Last Modified By Organization Details Last Modified Time 12/14/2021 [id number] [facility] came to your home to evaluate you for feeling lightheaded since yesterday. You are feeling better today and you did not take the gabapentin. We evaluated your labs: NA 136 K 4.0 CL 99 iCA 1.15 TCO2 24 GLU 179 BUN 24 CR 1.9 HCT 28 HGB 9.5 ANGAP 18 These are unchanged from your discharge labs done on 12/12 EXCEPT that your kidney function is a little worse. It was 1.3 on 12/12. We also checked your urine and it does not look infected. We did an EKG in your home - it was We talked about your medication regimen - Please stop taking the gabapentin and see how this affects your symptoms. Continue with plenty of fluids as we discussed. Keep your appointment with your surgeon and with your urologist as scheduled. If you have any worsening symptoms, please call 911 and go to the ED for evaluation Not available 12/14/2021 20:00:37 Reason for Referral None Reported. Results Created Date Observation Date Name Description Value Unit Range Abnormal Flag Note LastModifiedBy Organization Detail LastModifiedTime 12/15/1912/14/2021 urina lysis , dipst ick Appearance clear Not Available [facility] - [facility] [address], [place], [address], 12/14/2021 15:12:58 12/15/1912/14/2021 urina lysis , dipst ick Color yellow Not Available [facility] [address] [place], [address], 12/14/2021 15:12:58 12/15/1912/14/2021 urina lysis , dipst ick Glucose (ref: neg Neg Not Available [facility] [place] [address] [place], [address], 12/14/2021 15:12:58 12/15/1912/14/2021 urina lysis , dipst ick Bilirubin (ref: neg) Neg Not Available [facility] [place] [address] [place], [address], 12/14/2021 15:12:58 12/15/1912/14/2021 urina lysis , dipst ick Ketones (ref: neg) Neg Not Available [facility] [place] [address] [place], [address], 12/14/2021 15:12:58 12/15/1912/14/2021 urina lysis , dipst ick Specific [place] (ref: 1.003 - 1.035) 1.020 Not Available [facility] [place] [address], [place], [address], 12/14/2021 15:12:58 12/15/1912/14/2021 urina lysis , dipst ick Blood (ref: neg) Neg Not Available [facility] [place] [address] [place], [address], 12/14/2021 15:12:58 12/15/1912/14/2021 urina lysis , dipst ick pH (ref: 5.0-7.0) 5.0 Not Available [facility] [address] [place], [address], 12/14/2021 15:12:58 12/15/1912/14/2021 urina lysis , dipst ick Protein (ref: neg) Neg Not Available [facility] [place] [address] [place], [address], 12/14/2021 15:12:58 12/15/1912/14/2021 urina lysis , dipst ick Urobilinogen (ref: 0.2-1.0) 0.2 Not Available [facility] [address] [facility], [place], [address], 12/14/2021 15:12:58 12/15/1912/14/2021 urina lysis , dipst ick Nitrites (ref: neg) negati ve Not Available [facility] [address] [place], [address], 12/14/2021 15:12:58 12/15/1912/14/2021 urina lysis , dipst ick Leukocytes (ref: neg) ?? Not Available [facility] [address] [place], [address], 12/14/2021 15:12:58 12/15/1912/14/2021 urina lysis , dipst ick Location [facility], [address] [place] [address], [id number] Not Available [facility] [address] [place], [address], 12/14/2021 15:12:58 12/15/19 22 12/14/2021 BMP + IONIZ ED CALCI UM, SERUM OR PLASM A glu 179 mg/dL 70-105 Not Available [facility] [address] [place], [address], 12/14/2021 15:11:21 12/15/19 22 12/14/2021 BMP + IONIZ ED CALCI UM, SERUM OR PLASM A BUN 24 mg/dL 8-26 Not Available [facility] [address] [place], [address], 12/14/2021 15:11:21 12/15/19 22 12/14/2021 BMP + IONIZ ED CALCI UM, SERUM OR PLASM A crea 1.9 mg/dL 0.6-1. 3 Not Available [address], [address], 12/14/2021 15:11:21 12/15/19 22 12/14/2021 BMP + IONIZ ED CALCI UM, SERUM OR PLASM A Na 136 mmol/ L 138-14 6 Not Available [address], [address], 12/14/2021 15:11:21 12/15/19 22 12/14/2021 BMP + IONIZ ED CALCI UM, SERUM OR PLASM A K 4.0 mmol/ L 3.5-4. 9 Not Available [address], [address], 12/14/2021 15:11:21 12/15/19 22 12/14/2021 BMP + IONIZ ED CALCI UM, SERUM OR PLASM A cL 99 mmol/ L 98-109 Not Available [address], [address], 12/14/2021 15:11:21 12/15/19 22 12/14/2021 BMP + IONIZ ED CALCI UM, SERUM OR PLASM A TCO2 24 mmol/ L 24-29 Not Available [address], [address], 12/14/2021 15:11:21 12/15/19 22 12/14/2021 BMP + IONIZ ED CALCI UM, SERUM OR PLASM A angap 18 mmol/ L 10-20 Not Available [address], [address], 12/14/2021 15:11:21 12/15/19 22 12/14/2021 BMP + IONIZ ED CALCI UM, SERUM OR PLASM A ica 1.15 mmol/ L 1.12-1 .32 Not Available [facility] [address] [place], [address], 12/14/2021 15:11:21 12/15/19 22 12/14/2021 BMP + IONIZ ED CALCI UM, SERUM OR PLASM A HCT 28 %pcv 38-51 Not Available [facility] [address] [place], [address], 12/14/2021 15:11:21 12/15/19 22 12/14/2021 BMP + IONIZ ED CALCI UM, SERUM OR PLASM A Hb 9.5 g/dL 12-17 Not Available [facility] [address] [place], [address], 12/14/2021 15:11:21 Result Notes None recorded. Procedures Surgical History Date Name Laterality Status Provider Name and Address Organization Details Recorded Time 12/15/19 22 Venipuncture - completed LIO VANCE NP [address] [place], [address], [place] [facility] 12/14/2021 19:45:24 12/15/19 ECG Interpretation - completed LIO VANCE NP [address] [place], [address], [place] [facility] 12/14/2021 19:46:52 radical prostatectomy completed LIO VANCE NP [address] [place], [address], [place] [facility] 12/14/2021 15:23:36 arterial bypass graft completed LIO VANCE NP [address] [place], [address], [place] [facility] 12/14/2021 15:23:50 Imaging Results None recorded. Procedure Notes None recorded. Medical Equipment None Reported. Allergies No known drug allergies Medications Name Sig Start Date Stop Date Status Note LastModified by Organization Details LastModified Time blood pressu solution kit active Not Available Not Available Not Available amoxicillin 500 mg capsule TAKE 4 CAPSULES BY MOUTH 1 HOUR PRIOR TO DENTAL APPOINTME NT 12/14 completed Not Available Not Available Not Available atorvastati n 40 mg tablet TAKE 1 TABLET BY MOUTH EVERY DAY active Not Available Not Available No t Available carvedilol 25 mg tablet TAKE 1 TABLET BY MOUTH TWICE A DAY active Not Available Not Available No t Available doxycycline hyclate 100 mg capsule TAKE 1 CAPSULE BY MOUTH ONCE DAILY X14 DAYS 12/14 completed Not Available Not Available Not Available ipratropium 0.5 mg-albutero l 3 mg (2.5 mg base)/3 mL nebulizatio n soln INHALE 1 VIAL EVERY 4 HOURS NEEDED active Not Available Not Available No t Available triamcinolo ne acetonide 0.5 % topical cream APPLY TO AFFECTED AREA EVERY DAY FOR 14 DAYS active Not Available Not Available No t Available valacyclovi r 1 gram tablet TAKE 2 TABLETS BY MOUTH EVERY 12 HOURS active Not Available Not Available No t Available meloxicam 15 mg tablet TAKE 1 TABLET BY MOUTH EVERY DAY FOR 30 DAYS active Not Available Not Available No t Available lisinopril 20 mg tablet TAKE 1 TABLET BY MOUTH EVERY DAY active Not Available Not Available No t Available sulfamethox azole 800 mg-trimetho prim 160 mg tablet TAKE 1 TABLET BY MOUTH TWICE A DAY active Not Available Not Available No t Available doxycycline monohydrate 100 mg tablet TAKE 1 TABLET (ORAL) 2 TIMES PER DAY FOR 10 DAYS FOR INFECTION 12/14 completed Not Available Not Available Not Available tramadol 50 mg tablet TAKE 1 TABLET BY MOUTH EVERY 8 HOURS NEEDED active Not Available Not Available No t Available amlodipine 10 mg tablet TAKE 1 TABLET BY MOUTH EVERY DAY active Not Available Not Available No t Available docusate sodium 100 mg capsule TAKE 1 CAPSULE BY MOUTH TWICE A DAY FOR 7 DAYS active Not Available Not Available No t Available omeprazole 20 mg capsule,del ayed release TAKE 1 CAPSULE BY MOUTH TWICE A DAY active Not Available Not Available No t Available gabapentin 100 mg capsule active Not Available Not Available Not Available oxycodone 5 mg tablet TAKE 1 TABLET BY MOUTH EVERY 6 HOURS NEEDED FOR PAIN active Not Available Not Available No t Available tadalafil 20 mg tablet active Not Available Not Available Not Available levalbutero l HFA 45 mcg/actuati on aerosol inhaler INHALE 2 PUFFS NEEDED EVERY 4 HOURS FOR 30 DAYS active Not Available Not Available No t Available Stiolto Respimat 2.5 mcg-2.5 mcg/actuati on solution for inhalation INHALE 2 PUFFS ONCE DAILY active Not Available Not Available No t Available Qvar RediHaler 80 mcg/actuati on HFA breath activated aerosol INHALE 1 PUFF INTO THE LUNGS TWICE A DAY active Not Available Not Available No t Available Vitals Date Recorded Heart rate Oxygen saturation Oxygen saturation in Arterial blood by Pulse oximetry Respiratory rate Body temperature Body temperature Respiratory rate Heart rate Oxygen saturation Oxygen saturation in Arterial blood by Pulse oximetry Systolic blood pressure Diastolic blood pressure Systolic blood pressure Diastolic blood pressure Provider Name and Address Organization Details Last Updated DateTime 102 /min 98 % 98 % 20 /min 98.2 [degF] 98.2 [degF] 20 /min 107 /min 99 % 99 % 136 mm[Hg] 58 mm[Hg] 124 mm[Hg] 68 mm[Hg] Not Available [facility] 14:48:56 Social History None recorded. Functional Status None recorded. Mental Status None recorded. Family History Nothing Reported. Medical History Condition Response Diabetes N Coronary Artery Disease Y CHF N Parkinson's Disease N Cancer N Stroke N Dementia N Asthma N COPD Y Depression N Hypothyroidism N High Cholesterol Y Rheumatoid Arthritis N Pulmonary Embolism N Hypertension Y A-fib N Osteoporosis N Kidney Disease Y Past Encounters Encounter ID Performer Location Encounter Start Date Encounter Closed Date Diagnosis/Indication Diagnosis SNOMED-CT Code Diagnosis ICD10 Code Diagnosis Note [id number] LIO VANCE NP [facility] [address] [place] [address] 12/14/2021 14:40:12 12/15/2021 12:28:27 Near syncope [id number] R55 Health Concerns Section Related Observation LastModified by Organization Detai ls LastModified Time None Recorded Concern Status LastModified by Organization Details LastModified Time None Recorded Advance Directives Directive None Recorded Payers Encounter Date Sequence Insurance Name Policy Number Policy Eckert Covered Member ID Eckert Member ID Guarantor Name 12/14/2021 1 [place]: [employer] Mikal Elizondo [id number] Mikal Elizondo 12/14/2021 2 [employer] [id number] Mikal Elizondo [id number] Mikal Elizondo Notes Date Note Type Note Provider Name and Address Organization Details Recorded Time 12/14/2021 text/html 71 year-old male with history of PAD, CAD, HTN, HLD, COPD who calls to home to evaluate him for dizziness. He is feeling better today.Pt reports he is 2 days post DC from [facility]. Pt underwent elective EVAR with bilateral femoral endartectomies, patch angioplasty and left to right fem-fem bypass on 12/10. He had a complication with galeano placement requiring urology to dilate and insert galeano secondary to urethral stricture. His post-op course was unremarkable.Pt sts he began with dizziness and lightheadedness yesterday afternoon. He felt better with sitting. No nausea, vomiting, shortness of breath, chest pain or palpitations. He woke today and felt the symptoms were slightly improved. He denies any focal neurological deficits.He started gabapentin yesterday morning for his peripheral neuropathy. He also took one oxycodone for his post-op pain.He denies any difficulty in eating or drinking. His bowel movements have been normal for him. His incision sites in his groin have been improving.His galeano has been draining clear yellow urine. There has been no pelvic discomfort. LIO VANCE NP [facility] [address], [place], [address], [place] [facility] 12/14/2021 20:00:48
--- OUTSIDE RECORDS SUMMARY | 2024-05-05 07:15 | XMS_ITS ---
Author Organization Kiko Coats MD Address [address] [place] [id number] Care Team Providers Care Lung Gun Operator Name Role Phone Jorge L Kiko Primary Care Provider Medications Medication SIG (Take, Route, Fr equency, Duration) Notes Start Date End Date Status traMADol HCl 50 MG 2 tabs as needed Ora lly Once a day for 30 days 03/14/2024 Active traMADol HCl 100 MG 1 tablet as needed O rally every 8 hours as needed 03/06/2024 Active Encounters Encounter Location Date Provider Diagnosis Kiko Coats MD [address] [place] [id number] 03/14/2024 Kiko Coats Lumbar disc disease M51.9 Assessments Encounter Date Diagnosis (ICD Code) Assessment Notes Treatment Notes Treatment Clinical Notes Section Notes 03/14/2024 Lumbar disc disease (ICD-10 - M51.9) Plan Of Treatment Medication Medication Name Sig Start Date Stop Date Notes traMADol HCl 50 MG 2 tabs as needed Ora lly Once a day for 30 days 03/14/2024 traMADol HCl 100 MG 1 tablet as needed O rally every 8 hours as needed 03/06/2024 Next Appt Details Provider Name:Kiko De Leon lurdes, 05/09/2024 10:00:00 AM, [address] [place] [address], [address], [place], [place], [phone], Provider Name:Kiko De Leon jaironr, 11/10/2024 08:00:00 AM, [address] [place] [address], Suite [facility], [place], [place], [phone], Provider Name:Kiko De Leon jaironr, 11/17/2024 10:30:00 AM, [address] [place] [address], Suite [facility], [place], [place], [phone], Progress Notes * Mikal DENNYDOB: [birth year] (73 yo M)Acc No.[id number]:03/14/2024 Patient:?Mikal DENNY :1950???Age:73 Y???Sex:Male Address:[address], [facility] [place] [address] * Refills? Continue traMADol HCl Tablet, 100 MG, Orally, 1 tablet as needed, every 8 hours as needed Start traMADol HCl Tablet, 50 MG, Orally, 60 Tablet, 2 tabs as needed, Once a day, 30 days * true * Date:? Generated for Maryam fontaine/Pamela/eTransmitting on:?05/05/2024 07:15 AM EDT
--- OUTSIDE RECORDS SUMMARY | 2024-05-05 07:15 | XMS_ITS ---
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 Name Role Phone TAMRA OVALLE Primary Care Provider [facility] Insurance Providers: All historical and [...] POINT OF SERVICE [facility] Jun 04, 2017 [id number] DENISHA QUENTIN PATIENT AETNA POINT OF SERVICE [facility] CHOI E Feb 19, 2017 [id number] DENISHA QUENTIN PATIENT CAREMARK PRESCRIPT ION [facility] Jun 04, 2017 [id number] QUENTIN DENNY PATIENT CAREMARK PRESCRIPT ION [facility] ANDLUIZ RS Feb 19, 2017 [id number] DENISHA QUENTIN PATIENT CAREMARK PRESCRIPT ION [facility] Feb 19, 2017 [id number] QUENTIN DENNY PATIENT CAREMARK PRESCRIPT ION [facility] Feb 19, 2017 [id number] QUENTIN DENNY PATIENT CAREMARK PRESCRIPT ION RASHEEDA ANDLUIZ RS Aug 19, 2005 [id number] [phone] QUENTIN DENNY PATIENT CAREMARK PRESCRIPT ION RASHEEDA ANDLUIZ RS Aug 19, 2005 [id number] QUENTIN DENNY PATIENT 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AN POINT OF SERVICE [facility] Feb 19, 2017 [id number] [phone] QUENTIN DENNY PATIENT 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IT PLAN POINT OF SERVICE [facility] Feb 19, 2017 [id number] [phone] QUENTIN DENNY PATIENT 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 BENEFIT PLAN POINT OF SERVICE [facility] Feb 19, 2017 [id number] [phone] QUENTIN DENNY PATIENT NAMHANDLUIZ RS BENEFIT PLAN POINT OF SERVICE [facility] Jun 04, 2017 [id number] QUENTIN DENNY PATIENT NAMHANDLE RS BENEFIT PLAN PREFERRED PROVIDER ORGANIZAT ION (PPO) STAND TRACI Aug 19, 2005 [id number] [phone] QUENTIN DENNY PATIENT MEDICARE ([facility]) MEDICARE () PART B Apr 19, 2013 PART B [id number] QUENTIN DENNY PATIENT MEDICARE ([facility]) MEDICARE () PART B Apr 19, 2013 PART B [id number] [phone] QUENTIN DENNY PATIENT MEDICARE ([facility]) MEDICARE () PART B Apr 19, 2013 PART B [id number] QUENTIN DENNY PATIENT MEDICARE ([facility]) MEDICARE () PART B Apr 19, 2013 PART B [id number] QUENTIN DENNY PATIENT MEDICARE ([facility]) MEDICARE () PART A Mar 22, 2013 PART A [id number] [phone] QUENTIN DENNY PATIENT MEDICARE (WNR) MEDICARE ([place]) PART A Mar 22, 2013 PART A [id number] QUENTIN DENNY PATIENT MEDICARE (WNR) MEDICARE ([place]) PART A Mar 22, 2013 PART A [id number] QUENTIN DENNY PATIENT MEDICARE (WNR) MEDICARE ([place]) PART A Mar 22, 2013 PART A [id number] QUENTIN DENNY PATIENT MEDICARE (WNR) MEDICARE (M) PART A Mar 22, 2013 PART A [id number] [phone] QUENTIN DENNY PATIENT MEDICARE (WNR) MEDICARE ([place]) PART B Mar 22, 2013 PART B [id number] QUENTIN DENNY PATIENT Selected Encounter This section includes the information on record at [place] for the Encounter. Date/Time Encounter Type Encounter Description Reason Provider Source Apr 24, 2024 10:00 AM OFFICE O/P EST MOD 30 MIN PRIMARY CARE/MEDICINE ICD-10-CM D50.9 Iron deficiency anemia, unspecified FURCOLO,TAMRA IHE Encounter Template Text not used by [place] Assessments - Encounter Diagnoses This section includes the primary and secondary diagnoses documented for the Encounter. Date/Time Primary/Secondary Diagnosis Diagnosis Name Provider Source Apr 24, 2024 10:51 AM PRIMARY Iron deficiency anemia, unspecified FURCOLO,TAMRA [facility] [place] Apr 24, 2024 10:51 AM SECONDARY Bilateral primary osteoarthritis of knee FURCOLO,TAMRA [facility] [place] [facility] Apr 24, 2024 10:51 AM SECONDARY Chronic obstructive pulmonary disease, unspecified FURCOLO,TAMRA [facility] [place] [facility] Apr 24, 2024 10:51 AM SECONDARY Esophageal obstruction FURCOLO,TAMRA [facility] [place] [facility] Apr 24, 2024 10:51 AM SECONDARY Essential (primary) hypertension FURCOLO,TAMRA [facility] [place] [facility] Apr 24, 2024 10:51 AM SECONDARY Mixed hyperlipidemia FURCOLO,TAMRA [facility] [place] [facility] Apr 24, 2024 10:51 AM SECONDARY Occlusion and stenosis of left carotid artery [facility] Apr 24, 2024 10:51 AM SECONDARY Type 2 diabetes mellitus without complications TAMRA OVALLE [facility] Plan of Treatment: Future Appointments (+ 6 months) and Future Tests (+/- 45 days) The Plan of Treatment section includes future care activities for the patient from all [place] [facility]. This section includes future appointments and future orders which are active, pending or scheduled. Future Appointments This section includes appointments that were scheduled to occur 6 months from the date of the Encounter, up to a maximum of 20 appointments. The data comes from all [facility] facilities. Appointment Date/Time Appointment Type Appointme nt Facility Name May 05, 2024 02:00 PM AMBULATORY - RE[facility]AB [facility] May 06, 2024 11:00 AM AMBULATORY - MEDICINE [facility] Jul 23, 2024 09:30 AM [facility] Aug 27, 2024 10:00 AM AMBULATORY MEDICINE [facility] Active, Pending, and Scheduled Orders This section includes a listing of several types of active, pending, and scheduled orders, including clinic medications orders, diagnostic test orders, procedure orders and consult orders; where the start date of the order is 45 days before the date of the Encounter or 45 days after the date of theEncounter. The data comes from all [facility]. Test Date/Time Test Type Test Details Facility Name Apr 24, 2024 10:43 AM Consult Order PHYSICAL T HERAPY/SPOPC OUTPT Cons Hospital Attendant's Choice [facility] Lab Results: +/- 30 days of the encounter This section includes the Chemistry and Hematology Lab Results on record with [place] for the patient. Radiology Reports and Pathology Reports are provided separately, in subsequent sections. Lab Results This section contains the Chemistry/Hematology Results that were resulted 30 days before or 30 daysafter the date of the Encounter. Date/Time Source Result Type Result - Unit Interpretation Reference Range Comment Apr 23, 2024 09:36 AM [facility] HEMOGLOBIN A1C PANEL Specimen Type: BLOOD Comment: Values obtained from A1C measurements can vary. For atypical A1C assays, a reported value of 7.0 could actually be between 6.72 and 7.28 if measured by a reference method. A reported value of 9.0 could actually be between 8.73 and 9.27. Ref: http://www.ngs p.org/CAPdata. asp Ordering Provider: TAMRA OVALLE Report Released Date/Time: Oct 29, 2023 10:41 AM Reporting Lab: [facility] [employer] [address] Performing Lab: [address] [address] HEMOGLOBIN A1C 6.1 H 4.0-5.6 Apr 23, 2024 09:36 AM [facility] LIPID PANEL FASTING Specimen Type: SERUM No comment entered. Ordering Provider: TAMRA OVALLE Report Released Date/Time: Oct 29, 2023 10:41 AM Reporting Lab: [facility] [employer] [address] Performing Lab: [address] [address] CHOLESTEROL 124 mg/dL TRIGLYCERIDE 307 mg/dL H 0-150 LDL calculated Reflex to dLD L mg/dL 0-129 CHOL/HDL 3.8 HDL CHOLESTEROL 33 mg/dL L 40-60 LDL DIRECT 51 mg/dL Vital Signs: All taken on the encounter date This section contains inpatient and outpatient Vital Signs collected on the date of the Encounter. Date/Time Temperature Pulse Blood Pressure Respiratory Rate SP02 Pain Height Weight Body Mass Index Source Apr 24, 2024 10:08 AM 98.3 89 137/74 16 98 6 173 25 [facility] Social History: Smoking Status (Most current) and Tobacco Use (All prior to encounter date) This section includes the most current, and the historical, smoking and tobacco- related health factors from the [place] facility where the Encounter took place. Current Smoking Status This section includes the most current smoking, or tobacco-related health factor, from the [place] facility where the Encounter took place. Date/Time Current Smoking Status Comment James capps Apr 24, 2024 10:00 AM VA-TOBACCO USE FOR MICHAEL [facility] [place] Tobacco Use History This section includes a history of the smoking, or tobacco-related health factors, that were collected on or before the date of the Encounter. The data comes from the [place] facility where the Encounter took place. Date/Time Smoking Status/Tobac co Use Comment Facility Apr 24, 2024 10:00 AM VA-TOBACCO USE FORMER CIGARETTES [facility] [place] [facility] Apr 24, 2023 10:30 AM VA-TOBACCO FORMER USER [facility] [place] [facility] Apr 24, 2023 10:30 AM VA-TOBACCO QUIT 15 YRS OR MORE [facility] [place] [facility] Mar 22, 2022 11:00 AM VA-TOBACCO FORMER USER [facility] [place] [facility] Mar 22, 2022 11:00 AM VA-TOBACCO QUIT 15 YRS OR MORE [facility] [place] [facility] Oct 21, 2020 09:30 AM VA-TOBACCO NEVER USED [facility] [place] [facility] Nov 04, 2019 08:30 AM VA-TOBACCO FORMER USER [facility] [place] [facility] Nov 04, 2019 08:30 AM VA-TOBACCO QUIT 15 YRS OR MORE [facility] [place] [facility] May 06, 2018 08:27 AM VA-TOBACCO FORMER USER [facility] [place] [facility] May 06, 2018 08:27 AM VA-TOBACCO QUIT 15 YRS OR MORE [facility] [place] [facility] Nov 05, 2017 09:54 AM QUIT TOBACCO USE > 7 YEARS AGO [facility] [place] [facility] June 28, 2016 09:36 AM QUIT TOBACCO USE > 7 YEARS AGO [facility] [place] [facility] Mar 15, 2015 10:54 AM LIFETIME NON-TOBACCO USER quit cigs. 1998 [facility] [place] [facility] Nov 14, 2004 02:40 PM HISTORY OF SMOKING [facility] [place] [facility] May 18, 2003 09:05 AM HISTORY OF SMOKING quit August 1998 [facility] [place] [facility] Jun 09, 2002 08:40 AM HISTORY OF SMOKING quit 99. [facility] [place] [facility] Jun 09, 2002 08:40 AM QUIT TOBACCO USE > 7 YEARS AGO [facility] Jun 10, 2001 08:50 AM HISTORY OF SMOKING quit 1998 [facility] Jun 10, 2001 08:50 AM QUIT TOBACCO USE 1-7 YEARS AGO [facility] Jun 08, 2000 02:55 PM HISTORY OF SMOKING quit 2yrs ago [facility] Radiology Reports: +/- 30 days of the [...] the Encounter. The data comes from all [place] treatment facilities. Date/Time Radiology Report Provider Source Apr 24, 2024 11:26 AM SPINE CERVICAL, 4 OR 5 VIEWS: QUENTIN DENNY [id number] -[id number] M Ex Date: APR 24, 2024@11:26 Req Phys: TAMRA OVALLE Loc: [facility] PACT EIGHT MD (Req'g Loc) Im Loc: [facility] 1 Service: [place] [address] (Case [id number] COMPLETE) SPINE CERVICAL, 4 OR 5 VIEWS (RAD Detailed) CPT:89248 Reason for Study: neck pain x 1 month Clinical History: Report Status: Verified Date Reported: APR 24, 2024 Date Verified: APR 24, 2024 Prompt Care Rn E-Sig:/ES/KADEN ZMAORA JR Report: Study: AP, lateral and left [...] Primary Interpreting Staff: KADEN ZAMORA JR, Radiologist (Prompt Care Rn) /KADEN ROBB JR [facility] Encounter Notes: All associated encounter notes This section contains the clinical notes associated to the Encounter. Date/Time Encounter Note(s) Provider Source Apr 24, 2024 12:20 PM LETTERS: LOCAL TITLE: PATIENT LETTER (T) STANDARD TITLE: LETTERS DATE OF NOTE: APR 24, 2024@12:20 ENTRY DATE: APR 24, 2024@12:21:01 AUTHOR: TAMRA OVALLE EXP COSIGNER: URGENCY: STATUS: COMPLETED DEPARTMENT OF [facility] Toll Free Number Primary Care Telephone Assistance can be reached at extension [phone] [facility] scheduling can be reached at extension [phone] [facility] scheduling can be reached at ext [phone] QUENTIN DENNY [address] [place] [address], [phone] Dear , significant arthritis and degenerative disc disease in your spine. physical therapy and mobilization can be helpful to reduce pain and increase mobility. Dr. Tamra Ovalle SPINE CERVICAL, 4 OR 5 VIEWS (RAD Detailed) CPT:57210 Reason for Study: neck pain x 1 month Clinical History: Report Status: Verified Date Reported: APR 24, 2024 Date Verified: APR 24, 2024 Prompt Care Rn E-Sig:/ES/KADEN ZAMORA JR Report: Study: AP, lateral [...] described above. Sincerely, Your Primary Care Team [facility] [address] [facility] [address] [place] [address] [place] [address] [phone] [facility] [address] [place] [address] [place] [address] [facility] [address] [facility] Floor [address] [place] [phone] [place] [address] T[facility] OVALLE [facility] [place] [facility] Apr 24, 2024 10:23 AM PHYSICIAN NOTE: LOCAL TITLE: MD NOTE STANDARD TITLE: PHYSICIAN NOTE DATE OF NOTE: APR 24, 2024@10:23 ENTRY DATE: APR 24, 2024@10:23:09 AUTHOR: TAMRA OVALLE EXP COSIGNER: URGENCY: STATUS: COMPLETED QUENTIN DENNY is a 74 year old [place] MALE who is being seen today in primary care for routine follow up. CARE TEAM Community Primary Care Provider: DR. Kiko Gresham, [facility] Specialists: nephrology- Dr. Sethi [facility] Specialists: vascular- Dr. Gomez, [facility] GI- Dr. Kingston Cardiology- DR. Rodriguez [...] 6. Type 2 diabetes mellitus (SNOMED CT 17662055) 7. 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 Chronic obstructive lung disease (SNOMED CT 78118235) 9. Diffuse spasm of esophagus (SNOMED CT 13824764) s/p dilatation by Dr joey serrano - 10. Chronic Renal disease 11. Hyperlipidemia (SNOMED CT 17850142) 12. Coronary Artery Disease * 13. Psoriasis * 14. Male erectile disorder PER LETTER BY UROLOGY DR HAYWARD-MAR 2001 PT IS ON VIAGRA S/O RETROPUBIC RADICAL PROSTATECTOMY 15. Family history of malignant neoplasm of prostate RADICAL PROSTATECTOMY AND ALSO LYMPH NODE DISSECTION 16. 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 Sethi. no longer on lisinopril Hyperlipidemia (SNOMED CT 51512161)- high triglycerides, otherwise good LDL Prostate Cancer- s/p prostatectomy >20 years ago Reflux Esophagitis- now on pantorazole 40 mg BID- has needed esophageal stricture dilations with Dr. Kingston Essential hypertension (SNOMED CT 89667604) - good BP control cervicalgia- for about [...] care, review of records and documentation. /noe/ TAMRA OVALLE D.O. PHYSICIAN Signed: 04/24/2024 10:52 TAMRA OVALLE [facility] [place] [facility] Apr 24, 2024 10:02 AM [...] to his/her clinician. Suicide Screen: C-SSRS Screening [place] Suicide Severity Rating Scale (C-SSRS) screener 1. [...] Not worried about housing near future [facility] [place] reports the following: Within the past 12 [...] Practical Nurse Signed: 04/24/2024 10:18 [facility]
--- OUTSIDE RECORDS SUMMARY | 2024-05-05 07:15 | XMS_ITS ---
Author Name [facility] [place] Address [address] [place] [address] Care Team Providers Care Marine Cargo Inspector Name Role Phone TAMRA HINSON Primary Care Provider [facility] Insurance Providers: All historical and [...] POINT OF SERVICE MHBP Jun 04, 2017 [id number] DENISHA QUENTIN PATIENT AETNA POINT OF SERVICE MHBP CHOI E Feb 19, 2017 [id number] [phone] DENISHA QUENTIN PATIENT CAREMARK PRESCRIPT ION MHBP Jun 04, 2017 [id number] QUENTIN DENNY PATIENT CAREMARK PRESCRIPT ION [facility] ANDLUIZ RS Feb 19, 2017 [id number] DENISHA QUENTIN PATIENT CAREMARK PRESCRIPT ION MHBP Feb 19, 2017 [id number] QUENTIN DENNY PATIENT CAREMARK PRESCRIPT ION MHBP Feb 19, 2017 [id number] QUENTIN DENNY PATIENT CAREMARK PRESCRIPT ION RASHEEDA CLARKE RS Aug 19, 2005 [id number] QUENTIN DENNY PATIENT CAREMARK PRESCRIPT ION RASHEEDA ANDLUIZ RS Aug 19, 2005 [id number] [phone] QUENTIN DENNY PATIENT 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 BENEFIT PLAN POINT OF SERVICE MHBP Feb 19, 2017 [id number] QUENTIN DENNY PATIENT 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 BENEFIT PLAN POINT OF SERVICE MHBP Feb 19, 2017 [id number] [phone] QUENTIN DENNY PATIENT 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 BENEFIT PLAN POINT OF SERVICE MHBP Feb 19, 2017 [id number] [phone] QUENTIN DENNY PATIENT NAMHANDLUIZ RS BENEFIT PLAN POINT OF SERVICE MHBP Jun 04, 2017 [id number] QUENTIN DENNY PATIENT NAMHANDLE RS BENEFIT PLAN PREFERRED PROVIDER ORGANIZAT ION (PPO) STAND TRACI Aug 19, 2005 [id number] [phone] QUENTIN DENNY PATIENT MEDICARE ([facility]) MEDICARE () PART B Apr 19, 2013 PART B [id number] QUENTIN DENNY PATIENT MEDICARE ([facility]) MEDICARE () PART B Apr 19, 2013 PART B [id number] QUENTIN DNENY PATIENT MEDICARE ([facility]) MEDICARE () PART B Apr 19, 2013 PART B [id number] QUENTIN DENNY PATIENT MEDICARE ([facility]) MEDICARE () PART B Apr 19, 2013 PART B [id number] QUENTIN DENNY PATIENT MEDICARE ([facility]) MEDICARE () PART A Mar 22, 2013 PART A [id number] QUENTIN DENNY PATIENT MEDICARE (WNR) MEDICARE (M) PART A Mar 22, 2013 PART A [id number] QUENTIN DENNY PATIENT MEDICARE (WNR) MEDICARE (M) PART A Mar 22, 2013 PART A [id number] QUENTIN DENNY PATIENT MEDICARE (WNR) MEDICARE (M) PART A Mar 22, 2013 PART A [id number] QUENTIN DENNY PATIENT MEDICARE (WNR) MEDICARE (M) PART A Mar 22, 2013 PART A [id number] QUENTIN DENNY PATIENT MEDICARE (WNR) MEDICARE (M) PART B Mar 22, 2013 PART B [id number] QUENTIN DENNY PATIENT Selected Encounter This section includes the information on record at [place] for the Encounter. Date/Time Encounter Type Encounter Description Reason Provider Source Jan 11, 2024 08:00 AM OFFICE O/P EST MOD 30 MIN PODIATRY ICD-10-CM S92.325A Nondisp fx of second metatarsal bone, left foot, THA Mendez [facility] Encounter Template Text not used by [place] Assessments - Encounter Diagnoses This section includes the primary and secondary diagnoses documented for the Encounter. Date/Time Primary/Secondary Diagnosis Diagnosis Name Provider Source Feb 04, 2024 07:28 AM PRIMARY Nondisp fx of second metatarsal bone, left foot, THA Mendez [place] [facility] [place] [facility] Feb 04, 2024 07:28 AM SECONDARY Disp fx of fifth metatarsal bone, left foot, THA Mendez [place] [facility] [place] [facility] Feb 04, 2024 07:28 AM SECONDARY Disp fx of fourth metatarsal bone, left foot, THA Mendez [place] [facility] [place] [facility] Feb 04, 2024 07:28 AM SECONDARY Nondisp fx of third metatarsal bone, left foot, THA Mendez [place] [facility] [place] [facility] Plan of Treatment: Future Appointments (+ 6 months) and Future Tests (+/- 45 days) The Plan of Treatment section includes future care activities for the patient from all [place] [facility] This section includes future appointments and future orders which are active, pending or scheduled. Future Appointments This section includes appointments that were scheduled to occur 6 months from the date of the Encounter, up to a maximum of 20 appointments. The data comes from all [place] treatment facilities. Appointment Date/Time Appointment Type Appointme nt Facility Name Jan 31, 2024 01:30 PM AMBULATORY - MEDICINE [facility] Feb 26, 2024 09:00 AM [facility] Apr 04, 2024 09:30 AM [facility] Apr 24, 2024 10:[address] [facility] May 05, 2024 02:00 PM [facility]ORY - [facility] [place] May 06, 2024 11:00 AM AMBULATORY - MEDICINE [facility] Vital Signs: All taken on the encounter date This section contains inpatient and outpatient Vital Signs collected on the date of the Encounter. Date/Time Temperature Pulse Blood Pressure Respiratory Rate SP02 Pain Height Weight Body Mass Index Source Jan 11, 2024 07:58 AM 97.3 96 138/92 96 3 [facility] Social History: Smoking Status (Most current) and Tobacco Use (All prior to encounter date) This section includes the most current, and the historical, smoking and tobacco- related health factors from the [place] facility where the Encounter took place. Current Smoking Status This section includes the most current smoking, or tobacco-related health factor, from the [place] facility where the Encounter took place. Date/Time Current Smoking Status Comment [facility] it Apr 24, 2023 10:30 AM [place]-TOBACCO QUIT 15 YRS OR MORE [facility] Tobacco Use History This section includes a history of the smoking, or tobacco-related health factors, that were collected on or before the date of the Encounter. The data comes from the [place] facility where the Encounter took place. Date/Time Smoking Status/Tobac co Use Comment Facility Apr 24, 2023 10:30 AM MT-TOBACCO QUIT 15 YRS OR MORE [facility] Mar 22, 2022 11:00 AM VA-TOBACCO FORMER USER [facility] [place] [facility] Mar 22, 2022 11:00 AM VA-TOBACCO QUIT 15 YRS OR MORE [facility] [place] [facility] Oct 21, 2020 09:30 AM VA-TOBACCO NEVER USED [place] [facility] [place] [facility] Nov 04, 2019 08:30 AM VA-TOBACCO FORMER USER [place] [facility] [place] [facility] Nov 04, 2019 08:30 AM VA-TOBACCO QUIT 15 YRS OR MORE [facility] [place] [facility] May 06, 2018 08:27 AM VA-TOBACCO FORMER USER [place] [facility] [place] [facility] May 06, 2018 08:27 AM VA-TOBACCO QUIT 15 YRS OR MORE [facility] [place] [facility] Nov 05, 2017 09:54 AM QUIT TOBACCO USE > 7 YEARS AGO [facility] [place] [facility] June 28, 2016 09:36 AM QUIT TOBACCO USE > 7 YEARS AGO [facility] [place] [facility] Mar 15, 2015 10:54 AM LIFETIME NON-TOBACCO USER quit cigs. 1998 [facility] [place] [facility] Nov 14, 2004 02:40 PM HISTORY OF SMOKING [facility] [place] [facility] May 18, 2003 09:05 AM HISTORY OF SMOKING quit August 1998 [facility] [place] [facility] Jun 09, 2002 08:40 AM HISTORY OF SMOKING quit 99. [facility] [place] [facility] Jun 09, 2002 08:40 AM QUIT TOBACCO USE > 7 YEARS AGO [facility] [place] [facility] Jun 10, 2001 08:50 AM HISTORY OF SMOKING quit 1998 [facility] [place] [facility] Jun 10, 2001 08:50 AM QUIT TOBACCO USE 1-7 YEARS AGO [facility] [place] [facility] Jun 08, 2000 02:55 PM HISTORY OF SMOKING quit [address] [facility] Radiology Reports: +/- 30 days [...] the Encounter. The data comes from all [place] treatment facilities. Date/Time Radiology Report Provider Source Jan 11, 2024 08:21 AM FOOT 3 OR MORE VIEWS(LEFT): QUENTIN DENNY [id number] -[id number] M Exm Date: JAN 11, 2024@08:21 Req Phys: THA STREET Pat Loc: CWM/NO/PODIATRY A (Req'g Loc) Img Loc: [facility] 1 Service: Unknown [facility] [address] (Case [id number] COMPLETE) FOOT 3 OR MORE VIEWS(LEFT) (RAD Detailed) CPT:73937 CPT Modifiers : LT LEFT SIDE Reason for Study: pain basefiufth met absent trauma Clinical History: Report Status: Verified Date Reported: JAN 11, 2024 Date Verified: JAN 11, 2024 Plasma [facility] Nurse E-Sig:/ES/KADEN ZAMORA JR Report: Study: Weight-bearing AP, [...] Primary Interpreting Staff: KADEN ZAMORA JR, Radiologist (Pl[facility] Center Nurse) /KADEN ROBB JR [facility] Encounter Notes: All associated encounter notes This section contains the clinical notes associated to the Encounter. Date/Time Encounter Note(s) Provider Source Jan 11, 2024 01:54 PM ADDENDUM: LOCAL TITLE: Addendum STANDARD TITLE: ADDENDUM DATE OF NOTE: JAN 11, 2024@13:54:04 ENTRY DATE: JAN 11, 2024@13:54:04 AUTHOR: THA STREET EXP COSIGNER: URGENCY: STATUS: COMPLETED Further chart review [...] PODIATRY NOTE: Podiatry High Risk Foot Encounter [facility] provider: Tha Street DPM Date: JAN 11, 2024 QUENTIN DENNY MALE [id number] [place] [address] FROM Apr TO Jan Primary Care:TAMRA HINSON [...] 6. Type 2 diabetes mellitus (SNOMED CT 18257402) 7. Endoscopy abnormal 8. Chronic obstructive lung disease (SNOMED CT 13009403) 9. Diffuse spasm of esophagus (SNOMED CT 27126484) 10. Chronic Renal disease 11. Hyperlipidemia (SNOMED CT 96037175) 12. Coronary Artery Disease * 13. Psoriasis * 14. Male erectile disorder 15. Prostate Cancer 16. Essential hypertension (SNOMED CT 10200869) Active Out Patient medications: Active Outpatient Medications [...] Loc: CWM/NO/PODIATRY A (Req'g Loc) Img Loc: [facility] Service: Unknown [facility] [place] [address] (Case [id number] CALLED F) FOOT 3 OR MORE VIEWS(LEFT) (RAD Detailed) CPT:05771 CPT Modifiers : LT LEFT SIDE Reason for Study: pain basefiufth met absent trauma Clinical History: Report Status: Verified Date Reported: JAN 11, 2024 Date Verified: JAN 11, 2024 [facility] Nurse E-Sig:/ES/KADEN ZAMORA JR Report: Study: Weight-bearing AP, [...] Primary Interpreting Staff: KADEN ZAMORA JR, Radiologist ([facility] Nurse) /KIRK PAVE: 2 Impression: -Multiple healing stress [...] as results of the physical exam and websphere consultant opinions and recommendations as sought. Alternatives [...] -The on this visit was given information AdmitSee service and encouraged to enroll if not already having done so. /noe/ THA STREET DPM PODIATRY ATTENDING Signed: 01/11/2024 13:[address] [place] [facility] [place] [facility] Jan 11, 2024 08:14 AM PODIATRY NOTE: LOCAL TITLE: PODIATRY NOTE STANDARD TITLE: PODIATRY NOTE DATE OF NOTE: JAN 11, 2024@08:14 ENTRY DATE: JAN 11, 2024@08:14:12 AUTHOR: THA STREET EXP COSIGNER: URGENCY: STATUS: COMPLETED PODIATRY NOTE Has ADDENDA Podiatry High Risk Foot Encounter [facility] provider: Tha Street DPM Date: JAN 11, 2024 QUENTIN DENNY [id number] [place] [address] FROM Apr TO Jan Primary Care:TAMRA HINSON [...] 6. Type 2 diabetes mellitus (SNOMED CT 26750628) 7. Endoscopy abnormal 8. Chronic obstructive lung disease (SNOMED CT 00456343) 9. Diffuse spasm of esophagus (SNOMED CT 48566245) 10. Chronic Renal disease 11. Hyperlipidemia (SNOMED CT 08930269) 12. Coronary Artery Disease * 13. Psoriasis * 14. Male erectile disorder 15. Prostate Cancer 16. Essential hypertension (SNOMED CT 68590067) Active Out Patient medications: Active Outpatient Medications [...] Exm Date: JAN 11, 2024@08:21 Req Phys: BABATUNDETHA Pamela Pat Loc: CWM/NO/PODIATRY A (Req'g Loc) Img Loc: [facility] Service: Unknown [facility] [place] [facility] [place] [address] (Case [id number] CALLED F) FOOT 3 OR MORE VIEWS(LEFT) (RAD Detailed) CPT:97925 CPT Modifiers : LT LEFT SIDE Reason for Study: pain basefiufth met absent trauma Clinical History: Report Status: Verified Date Reported: JAN 11, 2024 Date Verified: JAN 11, 2024 [facility] Nurse E-Sig:/ES/KADEN ZAMORA JR Report: Study: Weight-bearing AP, [...] Primary Interpreting Staff: KADEN ZAMORA JR, Radiologist ([facility] Nurse) /KIRK PAVE: 2 Impression: -Multiple healing stress [...] as results of the physical exam and websphere consultant opinions and recommendations as sought. Alternatives [...] -The on this visit was given information AdmitSee service and encouraged to enroll if not [...] AWAITING SIGNATURE * TAMRA HINSON CHARLES D [place] [facility]
--- OUTSIDE RECORDS SUMMARY | 2024-05-05 07:15 | XMS_ITS | Encounter Summary ---
Author Name [place] Address [address] [place] [address] Care Team Providers Care Tune Up Mechanic Name Role Phone TMARA HINSON Primary Care Provider [facility] Insurance Providers: All historical and [...] POINT OF SERVICE MHBP Jun 04, 2017 [id number] QUENTIN DENNY PATIENT AETNA POINT OF SERVICE MHBP CHOI E Feb 19, 2017 [id number] [phone] DENISHA QUENTIN PATIENT CAREMARK PRESCRIPT ION MHBP Jun 04, 2017 [id number] QUENTIN DENNY PATIENT CAREMARK PRESCRIPT ION [facility] ANDLE RS Feb 19, 2017 [id number] QUENTIN DENNY PATIENT CAREMARK PRESCRIPT ION MHBP Feb 19, 2017 [id number] QUENTIN DENNY PATIENT CAREMARK PRESCRIPT ION MHBP Feb 19, 2017 [id number] [phone] QUENTIN DENNY PATIENT CAREMARK PRESCRIPT ION RASHEEDA ANDLUIZ RS Aug 19, 2005 [id number] QUENTIN DENNY PATIENT CAREMARK PRESCRIPT ION RASHEEDA ANDLUIZ RS Aug 19, 2005 [id number] [phone] QUENTIN DENNY PATIENT 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 BENEFIT PLAN POINT OF SERVICE MHBP Feb 19, 2017 [id number] [phone] QUENTIN DENNY PATIENT 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 BENEFIT PLAN POINT OF SERVICE MHBP Feb 19, 2017 [id number] [phone] QUENTIN DENNY PATIENT 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 BENEFIT PLAN POINT OF SERVICE MHBP Feb 19, 2017 [id number] QUENTIN DENNY PATIENT NAMHANDLUIZ RS BENEFIT PLAN POINT OF SERVICE MHBP Jun 04, 2017 [id number] QUENTIN DENNY PATIENT NAMHANDLE RS BENEFIT PLAN PREFERRED PROVIDER ORGANIZAT ION (PPO) STAND TRACI Aug 19, 2005 [id number] [phone] QUENTIN DENNY PATIENT MEDICARE ([facility]) MEDICARE () PART B Apr 19, 2013 PART B [id number] QUENTIN DENNY PATIENT MEDICARE ([facility]) MEDICARE () PART B Apr 19, 2013 PART B [id number] QUENTIN DENNY PATIENT MEDICARE (WN) MEDICARE () PART B Apr 19, 2013 PART B [id number] [phone] [id number] QUENTIN DENNY PATIENT MEDICARE (WN) MEDICARE () PART B Apr 19, 2013 PART B [id number] QUENTIN DENNY PATIENT MEDICARE (WN) MEDICARE () PART A Mar 22, 2013 PART A [id number] QUENTIN DENNY PATIENT MEDICARE (WNR) MEDICARE (M) PART A Mar 22, 2013 PART A [id number] QUENTIN DENNY PATIENT MEDICARE (WNR) MEDICARE (M) PART A Mar 22, 2013 PART A [id number] QUENTIN DENNY PATIENT MEDICARE (WNR) MEDICARE (M) PART A Mar 22, 2013 PART A [id number] [id number] QUENTIN DENNY PATIENT MEDICARE (WNR) MEDICARE (M) PART A Mar 22, 2013 PART A [id number] [id number] [id number] QUENTIN DENNY PATIENT MEDICARE (WNR) MEDICARE (M) PART B Mar 22, 2013 PART B [id number] QUENTIN DENNY PATIENT Selected Encounter This section includes the information on record at [place] for the Encounter. Date/Time Encounter Type Encounter Description Reason Pro vider Source Apr 22, 2024 03:07 PM Outpatient Encounter ADMIN PAT ACTIVTIES (MASNONCT) IHE Encounter Template Text not used by [place] Plan of Treatment: Future Appointments (+ 6 months) and Future Tests (+/- 45 days) The Plan of Treatment section includes future care activities for the patient from all [place] treatmentfacilities. This section includes future appointments and future orders which are active, pending or scheduled. Future Appointments This section includes appointments that were scheduled to occur 6 months from the date of the Encounter, up to a maximum of 20 appointments. The data comes from all [place] treatment facilities. Appointment Date/Time Appointment Type Appointme nt Facility Name Apr 24, 2024 10:00 AM AMBULATORY - MEDICINE [facility] [place] [facility] May 05, 2024 02:00 PM AMBULATORY - REHAB [facility] May 06, 2024 11:00 AM AMBULATORY - MEDICINE [place] [facility] [place] [facility] Jul 23, 2024 09:30 AM AMBULATORY - MEDICINE [facility] [place] [facility] Aug 27, 2024 10:00 AM AMBULATORY - MEDICINE [facility] [place] [facility] Active, Pending, and Scheduled Orders This section includes a listing of several types of active, pending, and scheduled orders, including clinic medications orders, diagnostic test orders, procedure orders and consult orders; where the start date of the order is 45 days before the date of the Encounter or 45 days after the date of theEncounter. The data comes from all [place] treatment facilities. Test Date/Time Test Type Test Details Facility Name Apr 24, 2024 10:43 AM Consult Order PHYSICAL T HERAPY/SPOPC OUTPT Cons Gis Geographer's Choice [facility] Lab Results: +/- 30 days of the encounter This section includes the Chemistry and Hematology Lab Results on record with [place] for the patient. Radiology Reports and Pathology Reports are provided separately, in subsequent sections. Lab Results This section contains the Chemistry/Hematology Results that were resulted 30 days before or 30 daysafter the date of the Encounter. Date/Time Source Result Type Result - Unit Interpretation Reference Range Comment Apr 23, 2024 09:36 AM [facility] HEMOGLOBIN A1C PANEL Specimen Type: BLOOD [...] Oct 29, 2023 10:41 AM Reporting Lab: [facility] [address] [address] Performing Lab: [address] [address] HEMOGLOBIN A1C 6.1 H 4.0-5.6 Apr 23, 2024 09:36 AM [facility] LIPID PANEL FASTING Specimen Type: SERUM No comment entered. Ordering Provider: TAMRA HINSON Report Released Date/Time: Oct 29, 2023 10:41 AM Reporting Lab: [facility] [address] [address] Performing Lab: [address] [address] CHOLESTEROL 124 mg/dL TRIGLYCERIDE 307 mg/dL H 0-150 LDL calculated Reflex to dLD L mg/dL 0-129 CHOL/HDL 3.8 HDL CHOLESTEROL 33 mg/dL L 40-60 LDL DIRECT 51 mg/dL Social History: Smoking Status (Most current) and Tobacco Use (All prior to encounter date) This section includes the most current, and the historical, smoking and tobacco- related health factors from the [place] facility where the Encounter took place. Current Smoking Status This section includes the most current smoking, or tobacco-related health factor, from the [place] facility where the Encounter took place. Date/Time Current Smoking Status Comment [facility] it Apr 24, 2023 10:30 AM VA-TOBACCO FORMER USER [place] [facility] [place] [facility] Tobacco Use History This section includes a history of the smoking, or tobacco-related health factors, that were collected on or before the date of the Encounter. The data comes from the [place] facility where the Encounter took place. Date/Time Smoking Status/Tobac co Use Comment [facility] Apr 24, 2023 10:30 AM VA-TOBACCO QUIT 15 YRS OR MORE [place] [facility] [place] [facility] Mar 22, 2022 11:00 AM VA-TOBACCO FORMER USER [place] [facility] [place] [facility] Mar 22, 2022 11:00 AM VA-TOBACCO QUIT 15 YRS OR MORE [facility] [place] [facility] Oct 21, 2020 09:30 AM VA-TOBACCO NEVER USED [place] [facility] [place] [facility] Nov 04, 2019 08:30 AM VA-TOBACCO FORMER USER [place] [facility] [place] [facility] Nov 04, 2019 08:30 AM VA-TOBACCO QUIT 15 YRS OR MORE [facility] [place] [facility] May 06, 2018 08:27 AM VA-TOBACCO FORMER USER [facility] [place] [facility] May 06, 2018 08:27 AM VA-TOBACCO QUIT 15 YRS OR MORE [facility] [place] [facility] Nov 05, 2017 09:54 AM QUIT TOBACCO USE > 7 YEARS AGO [facility] [place] [facility] June 28, 2016 09:36 AM QUIT TOBACCO USE > 7 YEARS AGO [facility] [place] [facility] Mar 15, 2015 10:54 AM LIFETIME NON-TOBACCO USER quit cigs. 1999 [facility] Nov 14, 2004 02:40 PM HISTORY OF SMOKING [facility] May 18, 2003 09:05 AM HISTORY OF SMOKING quit August 1998 [facility] Jun 09, 2002 08:40 AM HISTORY OF SMOKING quit 99. [facility] Jun 09, 2002 08:40 AM QUIT TOBACCO USE > 7 YEARS AGO [facility] Jun 10, 2001 08:50 AM HISTORY OF SMOKING quit 1998 [facility] Jun 10, 2001 08:50 AM QUIT TOBACCO USE 1-7 YEARS AGO [facility] Jun 08, 2000 02:55 PM HISTORY OF SMOKING quit 2yrs ago [facility] Radiology Reports: +/- 30 days of [...] the Encounter. The data comes from all [place] treatment facilities. Date/Time Radiology Report Provider Source Apr 24, 2024 11:26 AM SPINE CERVICAL, 4 OR 5 VIEWS: QUENTIN DENNY Matt [id number] -1950 M Ex Date: APR 24, 2024@11:26 Req Phys: TAMRA HINSON Loc: [facility] PACT EIGHT (Req'g Loc) [facility] Loc: [facility] 1 Service: [place] [address] (Case 197 COMPLETE) SPINE CERVICAL, 4 OR 5 VIEWS (RAD Detailed) CPT:02981 Reason for Study: neck pain x 1 month Clinical History: Report Status: Verified Date Reported: APR 24, 2024 Date Verified: APR 24, 2024 Retail Manager In Training E-Sig:/ES/KADEN ZAMORA JR Report: Study: AP, lateral [...] Primary Interpreting Staff: KADEN ZAMORA JR, Radiologist (Retail Manager In Training) /KADEN ROBB JR [facility] Encounter Notes: All associated encounter notes This section contains the clinical notes associated to the Encounter. Date/Time Encounter Note(s) Provider Source Apr 22, 2024 03:07 PM PHARMACY NOTE: LOCAL TITLE: PHARMACY CUSTOMER CARE MEDICATION RENEWAL STANDARD TITLE: PHARMACY NOTE DATE OF NOTE: APR 22, 2024@15:07 ENTRY DATE: APR 22, 2024@15:07:06 AUTHOR: RAFIA SPARROW COSIGNER: URGENCY: STATUS: COMPLETED Date: Apr Division: [place] Pt referred by Pharmacy Call Center for medication renewal: Non-controlled/maintenanc e medication Medications requested: [id number] FERROUS GLUCONATE 324MG TAB Defer to specialty clinic To be mailed . Please review and renew if appropriate. *This note was generated by [facility] Pharmacy Customer Care. If you have any questions or need assistance, do not contact this author. Please refer all questions to your local, on-site pharmacy departments. /noe/ RAFIA SPARROW CPhT MOLD TOOLING TECHNICIAN, [place]/PHARMACY CUSTOMER CARE Signed: 04/22/2024 15:07 Receipt Acknowledged By: 04/23/2024 15:07 /noe/ SNOW STEVENS M.D. RETAIL MANAGER IN TRAINING ASSURANCE ENGINEER RAFIA SPARROW [facility]
--- OUTSIDE RECORDS SUMMARY | 2024-05-05 07:15 | XMS_ITS | Encounter Summary ---
Author Name [facility] [place] [facility] [place] [facility] [place] [facility] [place] Address [address] [place] [address] Care Team Providers Care Media Senior Recruiter Name Role Phone TAMRA HINSON Primary [facility] Insurance Providers: All historical [...] POINT OF SERVICE [facility] Jun 04, 2017 [id number] [phone] CELSAQUENTIN BE PATIENT AET[employer] POINT OF SERVICE [facility] CHOI E Feb 19, 2017 [id number] [phone] [id number] [phone] DENISHAQUENTIN PATIENT CAREMARK PRESCRIPT ION [facility] Jun 04, 2017 [id number] QUENTIN DENNY PATIENT CAREMARK PRESCRIPT ION MAILH ANDLE RS Feb 19, 2017 [id number] DENISHAQUENTIN PATIENT CAREMARK PRESCRIPT ION [facility] Feb 19, 2017 [id number] [phone] DENISHA QUENTIN PATIENT CAREMARK PRESCRIPT ION [facility] Feb 19, 2017 [id number] QUENTIN DENNY PATIENT CAREMARK PRESCRIPT ION RASHEEDA ANDLUIZ RS Aug 19, 2005 [id number] QUENTIN DENNY PATIENT CAREMARK PRESCRIPT ION RASHEEDA ANDLUIZ RS Aug 19, 2005 [id number] QUENTIN DENNY PATIENT 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AN POINT OF SERVICE [facility] Feb 19, 2017 [id number] [id number] [phone] [id number] [phone] QUENTIN DENNY PATIENT 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IT PLAN POINT OF SERVICE [facility] Feb 19, 2017 [id number] [phone] [id number] [phone] QUENTIN DENNY PATIENT 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EFIT PLAN POINT OF SERVICE [facility] Feb 19, 2017 [id number] [phone] [id number] [phone] QUENTIN DENNY PATIENT MAILHANDLE RS BENEFIT PLAN POINT OF SERVICE [facility] Jun 04, 2017 [id number] [id number] QUENTIN DENNY PATIENT MAILHANDLE RS BENEFIT PLAN PREFERRED PROVIDER ORGANIZAT ION (PPO) STAND TRACI Aug 19, 2005 [id number] [phone] QUENTIN DENNY PATIENT MEDICARE ([facility]) MEDICARE () PART B Apr 19, 2013 PART B [id number] QUENTIN DENNY PATIENT MEDICARE ([facility]) MEDICARE () PART B Apr 19, 2013 PART B [id number] QUENTIN DENNY PATIENT MEDICARE (WN) MEDICARE () PART B Apr 19, 2013 PART B [id number] QUENTIN DENNY PATIENT MEDICARE ([facility]) MEDICARE () PART B Apr 19, 2013 PART B [id number] QUENTIN DENNY PATIENT MEDICARE ([facility]) MEDICARE () PART A Mar 22, 2013 PART A [id number] QUENTIN DENNY PATIENT MEDICARE (WNR) MEDICARE (M) PART A Mar 22, 2013 PART A [id number] QUENTIN DENNY PATIENT MEDICARE (WNR) MEDICARE (M) PART A Mar 22, 2013 PART A [id number] QUENTIN DENNY PATIENT MEDICARE (WNR) MEDICARE (M) PART A Mar 22, 2013 PART A [id number] QUENTIN DENNY PATIENT MEDICARE (WNR) MEDICARE (M) PART A Mar 22, 2013 PART A [id number] QUENTIN DENNY PATIENT MEDICARE (WNR) MEDICARE (M) PART B Mar 22, 2013 PART B [id number] QUENTIN DENNY PATIENT Selected Encounter This section includes the information on record at [place] for the Encounter. Date/Time Encounter Type Encounter Description Reason Pro vider Source Apr 22, 2024 02:08 PM Outpatient Encounter PRIMARY CARE/MEDICINE IHE Encounter Template Text not used by [place] Plan of Treatment: Future Appointments (+ 6 months) and Future Tests (+/- 45 days) The Plan of Treatment section includes future care activities for the patient from all [place] treatmentfacilities. This section includes future appointments and future orders which are active, pending or scheduled. Future Appointments This section includes appointments that were scheduled to occur 6 months from the date of the Encounter, up to a maximum of 20 appointments. The data comes from all [place] treatment facilities. Appointment Date/Time Appointment Type Appointme nt Facility Name Apr 24, 2024 10:00 AM AMBULATORY - MEDICINE [facility] [place] [facility] May 05, 2024 02:00 PM [facility] May 06, 2024 11:00 AM [facility] - MEDICINE [facility] [place] [place] [facility] Jul 23, 2024 09:30 AM AMBULATORY - MEDICINE [facility] [place] [facility] Aug 27, 2024 10[facility]00 AM [facility] Active, Pending, and Scheduled Orders This section includes a listing of several types of active, pending, and scheduled orders, including clinic medications orders, diagnostic test orders, procedure orders and consult orders; where the start date of the order is 45 days before the date of the Encounter or 45 days after the date of theEncounter. The data comes from all [place] treatment facilities. Test Date/Time Test Type Test Details Facility Name Apr 24, 2024 10:43 AM Consult Order PHYSICAL T HERAPY/SPOPC OUTPT Cons Equipment Tech's Choice [facility] Lab Results: +/- 30 days of the encounter This section includes the Chemistry and Hematology Lab Results on record with [place] for the patient. Radiology Reports and Pathology Reports are provided separately, in subsequent sections. Lab Results This section contains the Chemistry/Hematology Results that were resulted 30 days before or 30 daysafter the date of the Encounter. Date/Time Source Result Type Result - Unit Interpretation Reference Range Comment Apr 23, 2024 09:36 AM [facility] HEMOGLOBIN A1C PANEL Specimen Type: [...] Oct 29, 2023 10:41 AM Reporting Lab: [facility] [address] [address] Performing Lab: [address] [address] HEMOGLOBIN A1C 6.1 H 4.0-5.6 Apr 23, 2024 09:36 AM [facility] LIPID PANEL FASTING Specimen Type: SERUM No comment entered. Ordering Provider: TAMRA HINSON Report Released Date/Time: Oct 29, 2023 10:41 AM Reporting Lab: [facility] [address] [facility] [address] Performing Lab: [address] [address] CHOLESTEROL 124 mg/dL TRIGLYCERIDE 307 mg/dL H 0-150 LDL calculated Reflex to dLD L mg/dL 0-129 CHOL/HDL 3.8 HDL CHOLESTEROL 33 mg/dL L 40-60 LDL DIRECT 51 mg/dL Social History: Smoking Status (Most current) and Tobacco Use (All prior to encounter date) This section includes the most current, and the historical, smoking and tobacco- related health factors from the [place] facility where the Encounter took place. Current Smoking Status This section includes the most current smoking, or tobacco-related health factor, from the [place] facility where the Encounter took place. Date/Time Current Smoking Status Comment [facility] it Apr 24, 2023 10:30 AM VA-TOBACCO QUIT 15 YRS OR MORE [place] [facility] Tobacco Use History This section includes a history of the smoking, or tobacco-related health factors, that were collected on or before the date of the Encounter. The data comes from the [place] facility where the Encounter took place. Date/Time Smoking Status/Tobac co Use Comment [facility] Apr 24, 2023 10:30 AM VA-TOBACCO QUIT 15 YRS OR MORE [place] [facility] [facility] Mar 22, 2022 11:00 AM VA-TOBACCO FORMER USER [place] [facility] [facility] Mar 22, 2022 11:00 AM VA-TOBACCO QUIT 15 YRS OR MORE [place] [facility] [facility] Oct 21, 2020 09:30 AM VA-TOBACCO NEVER USED [place] [facility] [facility] Nov 04, 2019 08:30 AM VA-TOBACCO FORMER USER [place] [facility] [facility] Nov 04, 2019 08:30 AM VA-TOBACCO QUIT 15 YRS OR MORE [place] [facility] [place] [facility] May 06, 2018 08:27 AM VA-TOBACCO FORMER USER [place] [facility] [place] [facility] May 06, 2018 08:27 AM VA-TOBACCO QUIT 15 YRS OR MORE [place] [facility] [place] [facility] Nov 05, 2017 09:54 AM QUIT TOBACCO USE > 7 YEARS AGO [place] [facility] [place] [facility] June 28, 2016 09:36 AM QUIT TOBACCO USE > 7 YEARS AGO [facility] [facility] Mar 15, 2015 10:54 AM LIFETIME NON-TOBACCO USER quit cigs. 1998 [place] [facility] [place] [facility] Nov 14, 2004 02:40 PM HISTORY OF SMOKING [facility] May 18, 2003 09:05 AM HISTORY OF SMOKING quit August 1998 [facility] Jun 09, 2002 08:40 AM HISTORY OF SMOKING quit 99. [facility] Jun 09, 2002 08:40 AM QUIT TOBACCO USE > 7 YEARS AGO [facility] Jun 10, 2001 08:50 AM HISTORY OF SMOKING quit 1998 [facility] Jun 10, 2001 08:50 AM QUIT TOBACCO USE 1-7 YEARS AGO [facility] Jun 08, 2000 02:55 PM HISTORY OF SMOKING quit 2yrs ago [facility] Radiology Reports: +/- 30 days [...] the Encounter. The data comes from all [place] treatment facilities. Date/Time Radiology Report Provider Source Apr 24, 2024 11:26 AM SPINE CERVICAL, 4 OR 5 VIEWS: QUENTIN DENNY Matt [id number] -[id number] M Ex Date: APR 24, 2024@11:26 Req Phys: TAMRA HINSON Loc: [facility] PACT EIGHT (Req'g Loc) [facility] Loc[facility] 1 Service: [place] [address] (Case [id number] COMPLETE) SPINE CERVICAL, 4 OR 5 VIEWS (RAD Detailed) CPT:13624 Reason for Study: neck pain x 1 month Clinical History: Report Status: Verified Date Reported: APR 24, 2024 Date Verified: APR 24, 2024 Interior Painter E-Sig:/ES/KADEN ZAMORA JR Report: Study: AP, lateral [...] Primary Interpreting Staff: KADEN ZAMORA JR, Radiologist (Interior Painter) /KADEN ROBB JR [facility] Encounter Notes: All associated encounter notes This section contains the clinical notes associated to the Encounter. Date/Time Encounter Note(s) Provider Source Apr 22, 2024 02:08 PM ADMINISTRATIVE NOTE: LOCAL TITLE: ADMINISTRATIVE NOTE STANDARD TITLE: ADMINISTRATIVE NOTE DATE OF NOTE: APR 22, 2024@14:08 ENTRY DATE: APR 22, 2024@14:08:59 AUTHOR: BHUPINDER VICENTE EXP COSIGNER: URGENCY: STATUS: COMPLETED AMSA SPOKE TO ON THE TELEPHONE AND INFORMED HIM OF UPCOMING APPT AND THAT LABWORK IS NEEDED. /noe/ BHUPINDER VICENTE AMSA Signed: 04/22/2024 14:09 BHUPINDER VICENTE [facility]
--- OUTSIDE RECORDS SUMMARY | 2024-05-05 07:15 | XMS_ITS ---
Author Name [facility] [facility] [place] Address [address] [place] [address] Care Team Providers Care Manager Transportation Name Role Phone TAMRA HINSON Primary Care Provider [facility] with [facility] Insurance Providers: All historical and [...] POINT OF SERVICE [facility] Jun 04, 2017 [id number] [phone] DENISHA QUENTIN PATIENT [employer] POINT OF SERVICE [facility] CHOI E Feb 19, 2017 [id number] [phone] DENISHA QUENTIN PATIENT CAREMARK PRESCRIPT ION [facility] Jun 04, 2017 [phone] QUENTIN DENNY PATIENT CAREMARK PRESCRIPT ION [facility] TRICIA RS Feb 19, 2017 [id number] [phone] DENISHA QUENTIN PATIENT CAREMARK PRESCRIPT ION [facility] Feb 19, 2017 [id number] QUENTIN DENNY PATIENT CAREMARK PRESCRIPT ION [facility] Feb 19, 2017 [id number] QUENTIN DENNY PATIENT CAREMARK PRESCRIPT ION RASHEEDA ANDLUIZ RS Aug 19, 2005 [id number] [phone] QUENTIN DENNY PATIENT CAREMARK PRESCRIPT ION RASHEEDA ANDLUIZ RS Aug 19, 2005 [phone] QUENTIN DENNY PATIENT 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AN POINT OF SERVICE [facility] Feb 19, 2017 [id number] [phone] QUENTIN DENNY PATIENT 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IT PLAN POINT OF SERVICE [facility] Feb 19, 2017 [id number] [phone] QUENTIN DENNY PATIENT 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 BENEFIT PLAN POINT OF SERVICE [facility] Feb 19, 2017 [id number] [phone] QUENTIN DENNY PATIENT NAMHANDLE RS BENEFIT PLAN POINT OF SERVICE [facility] Jun 04, 2017 [id number] QUENTIN DENNY PATIENT NAMHANDLE RS BENEFIT PLAN PREFERRED PROVIDER ORGANIZAT ION (PPO) STAND TRACI Aug 19, 2005 [id number] [phone] QUENTIN DENNY PATIENT MEDICARE ([facility] MEDICARE () PART B Apr 19, 2013 PART B [id number] QUENTIN DENNY PATIENT MEDICARE ([facility]) MEDICARE () PART B Apr 19, 2013 PART B [id number] QUENTIN DENNY PATIENT MEDICARE ([facility]) MEDICARE () PART B Apr 19, 2013 PART B [id number] [phone] QUENTIN DENNY PATIENT MEDICARE ([facility]) MEDICARE () PART B Apr 19, 2013 PART B [id number] QUENTIN DENNY PATIENT MEDICARE ([facility]) MEDICARE () PART A Mar 22, 2013 PART A [id number] QUENTIN DENNY PATIENT MEDICARE (WNR) MEDICARE (M) PART A Mar 22, 2013 PART A [id number] QUENTIN DENNY PATIENT MEDICARE (WNR) MEDICARE (M) PART A Mar 22, 2013 PART A [id number] QUENTIN DENNY PATIENT MEDICARE (WNR) MEDICARE (M) PART A Mar 22, 2013 PART A [id number] QUENTIN DENNY PATIENT MEDICARE (WNR) MEDICARE (M) PART A Mar 22, 2013 PART A [id number] QUENTIN DENNY PATIENT MEDICARE (WNR) MEDICARE (M) PART B Mar 22, 2013 PART B [id number] QUENTIN DENNY PATIENT Selected Encounter This section includes the information on record at [place] for the Encounter. Date/Time Encounter Type Encounter Description Reason Provider Source Aug 15, 2023 10:30 AM Outpatient Encounter RENAL/NEPHROL(EXCEP T DIALYSIS) [facility]EVENS Encounter Template Text not used by [place] Plan of Treatment: Future Appointments (+ 6 months) and Future Tests (+/- 45 days) The Plan of Treatment section includes future care activities for the patient from all [place] treatmentfacilities. This section includes future appointments and future orders which are active, pending or scheduled. Future Appointments This section includes appointments that were scheduled to occur 6 months from the date of the Encounter, up to a maximum of 20 appointments. The data comes from all [place] treatment facilities. Appointment Date/Time Appointment Type Appointme nt Facility Name Sep 05, 2023 01:00 PM AMBULATORY - MEDICINE [place] [facility] [place] [facility] Oct 09, 2023 09:30 AM AMBULATORY - MEDICINE [place] [facility] [place] [facility] Oct 09, 2023 10:45 AM AMBULATORY - MEDICINE [place] [facility] [place] [facility] Oct 19, 2023 02:15 PM AMBULATORY - MEDICINE [place] [facility] [place] [facility] Oct 29, 2023 10:00 AM AMBULATORY - MEDICINE [place] [facility] [place] [facility] Jan 11, 2024 08:00 AM AMBULATORY - MEDICINE [place] [facility] [place] [facility] Jan 31, 2024 01:30 PM [facility] [place] [facility] Lab Results: +/- 30 days of the encounter This section includes the Chemistry and Hematology Lab Results on record with [place] for the patient. Radiology Reports and Pathology Reports are provided separately, in subsequent sections. Lab Results This section contains the Chemistry/Hematology Results that were resulted 30 days before or 30 daysafter the date of the Encounter. Date/Time Source Result Type Result - Unit Interpretation Reference Range Comment Aug 07, 2023 02:23 [facility] VITAMIN D (25-OH) Specimen Type: SERUM No comment entered. Ordering Provider: NEY STEVENS Report Released Date/Time: Apr 17, 2023 01:00 PM Reporting [facility] [place] [address] [address] Performing Lab: [facility] [address] [address] VITAMIN D (25-OH) 39 ng/mL 20-50 Aug 07, 2023 02:23 PM [facility] CALCIUM Specimen Type: SERUM No comment entered. Ordering Provider: NEY STEVENS Report Released Date/Time: Apr 17, 2023 01:00 PM Reporting [facility]: [facility] [place] [facility] [address] [address] Performing [facility]: [facility] [address] [address] CALCIUM 8.6 mg/dL 8.5-10.2 Aug 07, 2023 02:23 PM [facility] ALBUMIN Specimen Type: SERUM No comment entered. Ordering Provider: NEY STEVENS Report Released Date/Time: Apr 17, 2023 01:00 PM Reporting Lab: [facility] [address] [address] Performing Lab: [facility] [address] [address] ALBUMIN 4.1 g/dL 3.5-5.0 Aug 07, 2023 02:23 PM [facility] [place] [facility] ALKALINE PHOSPHATASE Specimen Type: SERUM No comment entered. Ordering Provider: NEY STEVENS Report Released Date/Time: Apr 17, 2023 01:00 PM Reporting Lab: [facility] [place] [facility] [address] [address] Performing Lab: [facility] [place] [facility] [address] [address] ALKALINE PHOSPHATASE 53 U/L 40-150 Aug 07, 2023 02:23 PM [facility] [place] [facility] PO4 Specimen Type: SERUM No comment entered. Ordering Provider: NEY STEVENS Report Released Date/Time: Apr 17, 2023 01:00 PM Reporting Lab: [facility] [place] [facility] [address] [address] Per[facility]: [facility] [place] [facility] [address] [address] PO4 3.6 mg/dL 2.5-5.0 Aug 07, 2023 02:23 PM [facility] PTH INTACT Specimen Type: SERUM No comment entered. Ordering Provider: NEY STEVENS Report Released Date/Time: Apr 17, 2023 01:00 PM Reporting Lab: [facility] [place] [facility] [address] [address] Performing Lab: [facility] [place] [facility] [address] [address] PTH INTACT 106.4 pg/mL H 10-65 Aug 07, 2023 02:23 PM [facility] CHOLESTEROL Specimen Type: SERUM No comment entered. Ordering Provider: NEY STEVENS Report Released Date/Time: Apr 17, 2023 01:00 PM Reporting Lab: [facility] [place] [facility] [address] [address] Performing Lab: [facility] [place] [facility] [address] [address] CHOLESTEROL 121 mg/dL Aug 07, 2023 02:23 PM [facility] MICROALBUMIN CREATININE RATIO PANEL Specimen Type: URINE No comment entered. Ordering Provider: NEY STEVENS Report Released Date/Time: Apr 17, 2023 01:00 PM Reporting Lab: [facility] [place] [facility] [address] [address] Performing [facility]: [facility] [address] [address] MICROALBUMIN/C REATININE RATIO 56.9 mg/g H 0-29.9 MICROALBUMIN,Q UANTITATIVE 4.6 mg/dL RR UNAVAIL CREATININE URINE 80.80 mg/dL Aug 07, 2023 02:23 PM [facility] HDL CHOLESTEROL Specimen Type: SERUM No comment entered. Ordering Provider: NEY STEVENS Report Released Date/Time: Apr 17, 2023 01:00 PM Reporting Lab: [facility] [address] [address] Performing Lab: [facility] [address] [address] HDL CHOLESTEROL 35 mg/dL L 40-60 Aug 07, 2023 02:23 PM [facility] FERRITIN Specimen Type: SERUM No comment entered. Ordering Provider: NEY STEVENS Report Released Date/Time: Apr 17, 2023 01:00 PM Reporting Lab: [facility] [address] [address] Performing Lab: [facility] [address] [address] FERRITIN 42 ng/mL 20-300 Aug 07, 2023 02:23 PM [facility] BASIC METABOLIC PANEL (non-fasting) Specimen Type: SERUM No comment entered. Ordering Provider: NEY STEVENS Report Released Date/Time: Apr 17, 2023 01:00 PM Reporting Lab: [facility] [address] [address] Performing Lab: [facility] [address] [address] UREA NITROGEN 21 mg/dL 7-25 GLUCOSE 129 mg/dL H 65-100 SODIUM 137 mmol/L 135-145 POTASSIUM 3.7 mmol/L 3.5-5.0 CHLORIDE 103 mmol/L 100-110 CO2 23 meq/L 20-30 CREATININE, Serum 1.58 mg/dL H 0.50-1.40 eGFR(CKD-EPI 2020) 45 mL/min L >60 Aug 07, 2023 02:23 PM [facility] MAGNESIUM Specimen Type: SERUM No comment entered. Ordering Provider: NEY STEVENS Report Released Date/Time: Apr 17, 2023 01:00 PM Reporting Lab: [address] [address] Performing Lab: [address] [address] MAGNESIUM 2.1 mg/dL 1.6-2.6 Aug 07, 2023 02:23 PM [facility] IRON & TIBC PANEL Specimen Type: SERUM No comment entered. Ordering Provider: NEY STEVENS Report Released Date/Time: Apr 17, 2023 01:00 PM Reporting Lab: [address] [address] Performing Lab: [address] [address] TIBC 335 ug/dL 204-475 IRON 73 ug/dL 40-160 Transferrin Saturation 21.8 20.0-50.0 Aug 07, 2023 02:23 PM [facility] CBC Specimen Type: BLOOD No comment entered. Ordering Provider: NEY STEVENS Report Released Date/Time: Apr 17, 2023 01:00 PM Reporting Lab: [address] [address] Performing Lab: [address] [address] WBC 11.74 10*3/uL H 4.50-11.00 RBC 4.26 10*6/uL 4.23-5.66 HGB 12.4 g/dL L 12.8-17 HCT 38.3 L 39.2-50.4 MCV 89.9 fL 82-99 MCHC 32.4 g/dL 30.8-35.1 PLT 224 10*3/uL 140-360 RDW-CV 16.2 H 12.0-16.0 MCH 29.1 pg 26.2-32.6 Vital Signs: All taken on the encounter date This section contains inpatient and outpatient Vital Signs collected on the date of the Encounter. Date/Time Temperature Pulse Blood Pressure Respiratory Rate SP02 Pain Height Weight Body Mass Index Source Aug 15, 2023 09:01 AM 97.2 86 149/72 16 94 0 168 24 [place] [facility] [place] [facility] Social History: Smoking Status (Most current) and Tobacco Use (All prior to encounter date) This section includes the most current, and the historical, smoking and tobacco- related health factors from the [place] facility where the Encounter took place. Current Smoking Status This section includes the most current smoking, or tobacco-related health factor, from the [place] facility where the Encounter took place. Date/Time Current Smoking Status Comment [facility] Apr 24, 2023 10:30 AM VA-TOBACCO QUIT 15 YRS OR MORE [place] [facility] Tobacco Use History This section includes a history of the smoking, or tobacco-related health factors, that were collected on or before the date of the Encounter. The data comes from the [place] facility where the Encounter took place. Date/Time Smoking Status/Tobac co Use Comment Facility Apr 24, 2023 10:30 AM VA-TOBACCO QUIT 15 YRS OR MORE [place] [facility] [facility] Mar 22, 2022 11:00 AM VA-TOBACCO FORMER USER [place] [facility] [place] [facility] Mar 22, 2022 11:00 AM VA-TOBACCO QUIT 15 YRS OR MORE [place] [facility] [place] [facility] Oct 21, 2020 09:30 AM VA-TOBACCO NEVER USED [place] [facility] [facility] Nov 04, 2019 08:30 AM VA-TOBACCO FORMER USER [place] [facility] [place] [facility] Nov 04, 2019 08:30 AM VA-TOBACCO QUIT 15 YRS OR MORE [place] [facility] [place] [facility] May 06, 2018 08:27 AM VA-TOBACCO FORMER USER [facility] May 06, 2018 08:27 AM VA-TOBACCO QUIT 15 YRS OR MORE [facility] Nov 05, 2017 09:54 AM QUIT TOBACCO USE > 7 YEARS AGO [facility] [place] [facility] June 28, 2016 09:36 AM QUIT TOBACCO USE > 7 YEARS AGO [facility] Mar 15, 2015 10:54 AM LIFETIME NON-TOBACCO USER quit cigs. 1998 [facility] Nov 14, 2004 02:40 PM [facility] May 18, 2003 09:05 AM HISTORY OF SMOKING quit August 1998 [facility] Jun 09, 2002 08:40 AM HISTORY OF SMOKING quit . [facility] Jun 09, 2002 08:40 AM QUIT TOBACCO USE > 7 YEARS AGO [facility] Jun 10, 2001 08:50 AM HISTORY OF SMOKING quit 1998 [facility] Jun 10, 2001 08:50 AM QUIT TOBACCO USE 1-7 YEARS AGO [facility] Jun 08, 2000 02:55 PM HISTORY OF SMOKING quit 2yrs ago [facility]
--- OUTSIDE RECORDS SUMMARY | 2024-05-05 07:16 | XMS_ITS | Encounter Summary ---
Author Name [facility] [place] [facility] [place] [facility] [place] Address [address] [place] [address] Care Team Providers Care Novelty Dipper Name Role Phone TAMRA HINSON [facility] Insurance Providers: All historical and [...] POINT OF SERVICE [facility] Jun 04, 2017 [id number] [phone] QUENTIN DENNY PATIENT AETNA POINT OF SERVICE [facility] CHOI E Feb 19, 2017 [id number] CELSAQUENTIN BE PATIENT CAREMARK PRESCRIPT ION [facility] Jun 04, 2017 [id number] DENISHA QUENTIN PATIENT CAREMARK PRESCRIPT ION MAILH ANDLE RS Feb 19, 2017 [id number] DENISHAQUENTIN PATIENT CAREMARK PRESCRIPT ION [facility]BP Feb 19, 2017 [phone] DENISHA QUENTIN PATIENT CAREMARK PRESCRIPT ION [facility] Feb 19, 2017 [id number] [phone] QUENTIN DENNY PATIENT CAREMARK PRESCRIPT ION MAILH ANDLE RS Aug 19, 2005 [id number] QUENTIN DENNY PATIENT CAREMARK PRESCRIPT ION MAILH ANDLE RS Aug 19, 2005 [id number] [phone] QUENTIN DENNY PATIENT 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 BENEFIT PLAN POINT OF SERVICE [facility] Feb 19, 2017 [id number] [phone] QUENTIN DENNY PATIENT 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IT PLAN POINT OF SERVICE [facility] Feb 19, 2017 [id number] [phone] [id number] QUENTIN DENNY PATIENT 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 BENEFIT PLAN POINT OF SERVICE [facility] Feb 19, 2017 [id number] QUENTIN DENNY PATIENT MAILHANDLE RS BENEFIT PLAN POINT OF SERVICE BP Jun 04, 2017 [id number] [phone] QUENTIN DENNY PATIENT MAILHANDLE RS BENEFIT PLAN PREFERRED PROVIDER ORGANIZAT ION (PPO) STAND TRACI Aug 19, 2005 [id number] [phone] QUENTIN DENNY PATIENT MEDICARE ([facility]) MEDICARE () PART B Apr 19, 2013 PART B [id number] QUENTIN DENNY PATIENT MEDICARE ([facility]) MEDICARE () PART B Apr 19, 2013 PART B [id number] QUENTIN DENNY PATIENT MEDICARE (WN) MEDICARE () PART B Apr 19, 2013 PART B [id number] QUENTIN DENNY PATIENT MEDICARE ([facility]) MEDICARE () PART B Apr 19, 2013 PART B [id number] QUENTIN DENNY PATIENT MEDICARE ([facility]) MEDICARE () PART A Mar 22, 2013 PART A [id number] QUENTIN DENNY PATIENT MEDICARE (WNR) MEDICARE (M) PART A Mar 22, 2013 PART A [id number] [phone] QUENTIN DENNY PATIENT MEDICARE (WNR) MEDICARE (M) PART A Mar 22, 2013 PART A [id number] QUENTIN DENNY PATIENT MEDICARE (WNR) MEDICARE (M) PART A Mar 22, 2013 PART A [id number] QUENTIN DENNY PATIENT MEDICARE (WNR) MEDICARE (M) PART A Mar 22, 2013 PART A [id number] QUENTIN DENNY PATIENT MEDICARE (WNR) MEDICARE (M) PART B Mar 22, 2013 PART B [id number] QUENTIN DENNY PATIENT Selected Encounter This section includes the information on record at [place] for the Encounter. Date/Time Encounter Type Encounter Description Reason Provider Source Oct 09, 2023 09:30 AM DETERMINE REFRACTIVE STATE OPTOMETRY ICD-10-CM H35.3211 Exdtve age-rel mclr degn, right eye, with actv chrdl neovas MILAD GUILLEN Encounter Template Text not used by VA Assessments - Encounter Diagnoses This section includes the primary and secondary diagnoses documented for the Encounter. Date/Time Primary/Secondary Diagnosis Diagnosis Name Provider Source Oct 26, 2023 11:42 AM PRIMARY Exdtve age-rel mclr degn, right eye, with actv chrdl neovas MILAD GUILLEN [facility] Oct 26, 2023 11:42 AM SECONDARY Dry eye syndrome of bilateral lacrimal glands MILAD GUILLEN [facility] Oct 26, 2023 11:42 AM SECONDARY Nexdtve age-related mclr degn, left eye, early dry stage MILAD GUILLEN [facility] Oct 26, 2023 11:42 AM SECONDARY Presbyopia MILAD GUILLEN [facility] Oct 26, 2023 11:42 AM SECONDARY Presence of intraocular lens MILAD GUILLEN [facility] Oct 26, 2023 11:42 AM SECONDARY Type 2 diabetes mellitus without complications [facility] Plan of Treatment: Future Appointments (+ 6 months) and Future Tests (+/- 45 days) The Plan of Treatment section includes future care activities for the patient from [facility] [place] [facility] This section includes future appointments and future orders which are active, pending or scheduled. Future Appointments This section includes appointments that were scheduled to occur 6 months from the date of the Encounter, up to a maximum of 20 appointments. The data comes from all [place] treatment facilities. Appointment Date/Time Appointment Type Appointme nt Facility Name Oct 19, 2023 02:15 PM [facility]UL[facility] Oct 29, 2023 10:00 AM [facility] Jan 11, 2024 08:00 AM [facility] Jan 31, 2024 01:30 PM [facility] Feb 26, 2024 09:00 AM [facility] Apr 04, 2024 09:30 AM [facility] Lab Results: +/- 30 days of the encounter This section includes the Chemistry and Hematology Lab Results on record with [place] for the patient. Radiology Reports and Pathology Reports are provided separately, in subsequent sections. Lab Results This section contains the Chemistry/Hematology Results that were resulted 30 days before or 30 daysafter the date of the Encounter. Date/Time Source Result Type Result - Unit Interpretation Reference Range Comment Oct 19, 2023 09:00 AM [facility] HEMOGLOBIN A1C PANEL Specimen Type: BLOOD [...] Oct 09, 2023 12:53 PM Reporting Lab: [address] [address] Performing Lab: [facility] [address] [address] HEMOGLOBIN A1C 6.0 H 4.0-5.6 Oct 19, 2023 09:00 AM [facility] LIPID PANEL, NON FASTING Specimen Type: SERUM No comment entered. Ordering Provider: TAMRA HINSON Report Released Date/Time: Oct 09, 2023 12:53 PM Reporting Lab: [facility] [address] [address] Performing Lab: [facility] [address] [address] CHOLESTEROL 118 mg/dL TRIGLYCERIDE 237 mg/dL H 0-150 LDL calculated 40 mg/dL 0-129 CHOL/HDL 3.8 HDL CHOLESTEROL 31 mg/dL L 40-60 Social History: Smoking Status (Most current) and Tobacco Use (All prior to encounter date) This section includes the most current, and the historical, smoking and tobacco- related health factors from the [place] facility where the Encounter took place. Current Smoking Status This section includes the most current smoking, or tobacco-related health factor, from the [place] facility where the Encounter took place. Date/Time Current Smoking Status Comment [facility] Apr 24, 2023 10:30 AM VA-TOBACCO FORMER USER [facility] Tobacco Use History This section includes a history of the smoking, or tobacco-related health factors, that were collected on or before the date of the Encounter. The data comes from the [place] facility where the Encounter took place. Date/Time Smoking Status/Tobac co Use Comment Facility Apr 24, 2023 10:30 AM VA-TOBACCO QUIT 15 YRS OR MORE [facility] Mar 22, 2022 11:00 AM VA-TOBACCO FORMER USER [facility] Mar 22, 2022 11:00 AM VA-TOBACCO QUIT 15 YRS OR MORE [facility] Oct 21, 2020 09:30 AM [facility]TOBACCO [facility] Nov 04, 2019 08:30 AM VA-TOBACCO [facility] Nov 04, 2019 08:30 AM VA-TOBACCO QUIT 15 YRS OR MORE [facility] May 06, 2018 08:27 AM VA-TOBACCO FOR[facility] USER [facility] May 06, 2018 08:27 AM VA-TOBACCO QUIT 15 YRS OR MORE [facility] Nov 05, 2017 09:54 AM QUIT TOBACCO USE > 7 YEARS AGO [facility] June 28, 2016 09:36 AM QUIT TOBACCO USE > 7 YEARS AGO [facility] Mar 15, 2015 10:54 AM LIFETIME NON-TOBACCO USER quit cigs. 1998 [facility] Nov 14, 2004 02:40 PM HISTORY OF SMOKING [facility] May 18, 2003 09:05 AM HISTORY OF SMOKING quit August 1998 [facility] Jun 09, 2002 08:40 AM HISTORY OF SMOKING quit . [facility] Jun 09, 2002 08:40 AM QUIT TOBACCO USE > 7 YEARS AGO [facility] Jun 10, 2001 08:50 AM HISTORY OF SMOKING quit 1998 [facility] Jun 10, 2001 08:50 AM QUIT TOBACCO USE 1-7 YEARS AGO [facility] Jun 08, 2000 02:55 PM HISTORY OF SMOKING quit 2yrs ago [facility] Encounter Notes: All associated encounter notes This section contains the clinical notes associated to the Encounter. Date/Time Encounter Note(s) Provider Source Oct 09, 2023 09:17 AM OPTOMETRY NOTE: LOCAL TITLE: OPTOMETRY NOTE STANDARD TITLE: OPTOMETRY NOTE DATE OF NOTE: OCT 09, 2023@09:17 ENTRY DATE: OCT 09, 2023@09:17:44 AUTHOR: SOREN DAILY COSIGNER: MILAD GUILLEN URGENCY: STATUS: COMPLETED OPTOMETRY NOTE Has ADDENDA Active problems - Computerized Problem List is the source for the followin. Iron deficiency anemia 2. Bilateral osteoarthritis of knees 3. Abdominal aortic aneurysm 4. Carotid artery stenosis 5. Shoulder pain 6. Neck pain 7. Raynaud's phenomenon 8. Esophageal stricture 9. Type 2 diabetes mellitus (SNOMED CT 45192839) 10. Endoscopy abnormal 11. colonoscopy 12. Chronic obstructive lung disease (SNOMED CT 31101464) 13. Diffuse spasm of esophagus (SNOMED CT 77280084) 14. Chronic Renal disease 15. Hyperlipidemia (SNOMED CT 96966879) 16. Coronary Artery Disease * 17. Psoriasis * 18. Sinus tachycardia (SNOMED CT 08583707) 19. Male erectile disorder 20. Prostate Cancer 21. Reflux Esophagitis 22. Nicotine-Related Disorder NOS (DSM-IV 292.9) 23. Essential hypertension (SNOMED CT 23643474) Active Outpatient Medications (including Supplies): Active Outpatient Medications Status 1) ACCU-CHEK GUIDE (GLUCOSE) TEST STRIP USE 1 STRIP TO ACTIVE TEST BLOOD SUGARS TWO TIMES A WEEK 2) ASCORBIC ACID 500MG TAB TAKE ONE TABLET BY MOUTH ONCE ACTIVE DAILY FOR VITAMIN/NUTRITION SUPPLEMENT 3) CLOTRIMAZOLE 1% TOP SOLN APPLY 1 [...] ACTIVE NEEDED TO TEST BLOOD SUGAR 10) TADALAFIL 20MG TAB TAKE ONE TABLET BY [...] PUFFS BY MOUTH TWICE DAILY 6) Non-VA LISINOPRIL 20MG TAB 20MG BY MOUTH ONCE DAILY ACTIVE 7) Non-VA MAGNESIUM OXIDE 420MG TAB 420MG BY MOUTH ONCE ACTIVE DAILY 8) Non-VA OLODATEROL/TIOTROP 2.5MCG/ACTUAT 60D INH 2 ACTIVE PUFFS (1 DOSE) BY MOUTH ONCE DAILY 9) Non-VA PANTOPRAZOLE NA 40MG EC TAB 40MG BY MOUTH ACTIVE EVERY MORNING 30 MINUTES BEFORE BREAKFAST 10) Non-VA TRAMADOL HCL 50MG TAB 50MG BY MOUTH ACTIVE 20 Total Medications Allergies: VARDENAFIL All medications including those prescribed by outside VA's, community providers, and all OTC meds were reviewed and reconciled with patient to the best of their abilities. This 73 year old MALE is seen today for CEE Chief Complaint: Pt presents with complaints of dryness OU. Pt uses Ats once per day, states that they only help 50% of the time. Does not use warm compresses. Pt is using allergy drops, but found that they made dryness worse and he has avoided using them because of this. No change in vision, his bifocals have a scratch on right lens. Pt also uses NVO for crosswords and reading the paper, finds NVO are working well for him. Would like to look at frames today. Last A1C 6.0 in Sep 2022, most recent A1C around 6.5 per pt. Dx of DM around 5 years ago. No pertinent family hx reported today. OHx: Type II DM without ocular manifestations OU Pseudophakia OU Ptosis s/p surgical repair OS Dry Eye OU Ref error and presbyopia (-) Pain: (-) ERICKSON: (-) Diplopia: (-) Flashes: (-) Floaters: longstanding and rare (-) Amaurosis Fugax/Tia's: (-) Eye Injury: (+) Eye Surgery: ptosis repair OS, CE OU (-) TBI FOHx: (-) Glaucoma/ARMD/Blindness VITALS (most recent, as listed in the electronic record): B/P: 149/72 (08/15/2023 09:01) Pulse: 86 (08/15/2023 09:01) Temperature: 97.2 F [36.2 C] (08/15/2023 09:01) Weight: 168 lb [76.20 kg] (08/15/2023 09:01) Height: 70 in [177.8 cm] (04/24/2023 10:25) BMI: BMI: 24.2 PERTINENT LABS: HEMOGLOBIN A1C TREND Collection DT Spec HGBA1c 10/04/2022 07:33 BLOOD 6.0 H 03/09/2022 08:25 BLOOD 6.8 H 09/05/2021 07:39 BLOOD 6.5 H 03/01/2021 08:40 BLOOD 6.3 H 10/18/2020 07:41 BLOOD 5.7 H (-) Smoker/Length of Time/PPD: quit 25 years ago Current Rx with last BCVA: OD: +1.00-1.56q079 20/20-2 OS: +0.75-1.88h443 20/20 Add: +2.50 DVA ( )sc ( x )cc phoropter OD: 20/25+2 OS: 20/20-2 Pupils: PERRL (-)APD EOMs: SAFE OU, (-)Pain/Diplopia CVF (facial, peripheral): FTFC OU Subjective Refraction: OD: +1.00-1.69g193 20/25+2 OS: +0.75-1.59h130 20/20-2 Add: +2.50 20/20 All the above performed by student, reviewed by attending Anterior segment: Performed by student, repeated by attending Lids: MGD OU, ptosis OU, prominent lower lid bags OU Conj: 1+ injection 360 OU, inf concretions inf fornix OD Cornea: temp post-sx scarring AC: >1:1 T&N OU Iris: flat and clear OU, (-) NVI OU Lens: PCIOL well-centered and clear OU Tonometry: Hernandez Performed by student, reviewed by attending OD 13 mmHg OS 13 mmHg Time: 9:57am Fundus exam: Dilated: 9:57am Dilating Drops: 1GTT 1 % Tropicamide OU & 1GTT 2.5% Phenylephrine OU(Pt. ed. on side effects, dilation warning given and verbal consent obtained) Patient advised not to drive if they feel they have any symptoms which could affect their ability to drive safely. Patient advised not to engage in any activities which could put themselves or others at risk if they feel they have any symptoms which could affect their ability to perform those activities safely. Performed by student, repeated by attending Vit: clear OU C/D: 0.35/0.35 OD, 0.45/0.45 OS Disc: OD: pink and distinct (-) NVD OS: pink and distinct (-) NVD Macula: elevation of macula with yellow-greenish hue OD, pigment mottling OS PPole: OD: clear (-) NVE/DBH/CWS/JULIAN/exudates OS: clear (-) NVE/DBH/CWS/JULIAN/exudates Vessels: OD: 2/3 (-)venous beading/tortuosity OS: 2/3 (-)venous beading/tortuosity Periph: flat and intact (-)holes, tears, detachments 360 OU Assessment/Plan: 1. 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 -MAC OCT confirms PED OU and CNVM OD -begin AREDS BID po -refer to retinal specialist for consult within 1 month -RTC for f/u exam in 6 months 2. Type II Diabetes without evidence of retinopathy or diabetic macular edema OU - Last A1c 6.0 in September 2022, most recent A1C unknown but pt states it is usually around 6.5 - Pt ed on today's findings and the possible ocular health and visual complications associated with diabetes as well as importance of attending follow up appts - Encouraged pt to monitor blood sugar and continue taking medications as prescribed by their PCP - Pt ed to call immediately if experiencing any sudden changes in vision - Monitor annually 3. Pseudophakia OU -stable OU -monitor at CEE 4. Dry Eye OU -pt symptomatic OU -continue with ATs QID OU -order ATs QID OU to be mailed to pt -monitor at CEE 5. Hyperopia with regular astigmatism and presbyopia OU -minimal change in refraction today -Spec Rx updated, order 1 pair bifocals per pt request -monitor at CEE Return to Clinic 1 year or earlier PRN Patient Education: Diabetes: Patient was educated regarding diabetes and related ocular complications including retinopathy and cataract formation as well as other related systemic complications. The importance of good blood sugar control, blood sugar testing as recommended by their PCP and the importance of timely follow upwere all emphasized. Medication Reconciliation: Outpatient: Has the patient been taking medications as documented in the EMLR? YES: The patient has been taking medications as documented in the EMLR. Essential Medication List for Review used to complete this medication reconciliation. INCLUDED IN THIS LIST: Alphabetical list of active outpatient prescriptions dispensed from this VA (local) and dispensed from another VA or [...] whether with a VA or non-VA provider. Medication List: JLV Link Data on this list may not be complete. Please check JLV. Allergies/ADRs (Tool #5) FACILITY ALLERGY/ADR -------- No Remote Allergy/ADR Data available for this patient [facility] VARDENAFIL Med. Reconciliation (Tool #1) INCLUDED IN THIS LIST: Alphabetical list of active outpatient prescriptions dispensed from this VA (local) and dispensed from another VA or DoD facility (remote) as well as inpatient orders (local pending and active), local clinic medications, locally documented non-VA medications, and local prescriptions that have or been discontinued in the past 90 days. Non-VA Meds Last Documented On: Oct 17, 2022 NOTE The display of VA prescriptions dispensed from another VA or DoD facility (remote) is limited to active outpatient prescription entries matched to National Drug File at the originating site and may not include some items such as investigational drugs, compounds, etc. NOT INCLUDED IN THIS LIST: Medications self-entered by the patient into personal health records (i.e. [employer] are NOT included in this list. Non-VA medications documented outside this [place], remote inpatient orders (regardless of status) and remote clinic medications are NOT included in this list. The patient and provider must always discuss medications the patient is taking, regardless of where the medication was dispensed or obtained. Non-VA ALBUTEROL 3/IPRATROP 0.5MG/3ML INHL 3ML INHALE 1 VIAL (3ML) IN NEBULIZER EVERY 6 HOURS Non-VA AMLODIPINE BESYLATE 5MG TAB TAKE ONE TABLET BY MOUTH ONCE DAILY OUTPT ASCORBIC ACID 500MG TAB (Status = Active) TAKE ONE TABLET BY MOUTH ONCE DAILY FOR VITAMIN/NUTRITION SUPPLEMENT Rx# [id number] Last Released: 10/02/23 Qty/Days Supply: Rx Expiration Date: 04/17/24 Refills Remainin Indication: FOR INADEQUATE VITAMIN C Non-VA ASPIRIN 81MG EC TAB TAKE ONE TABLET BY MOUTH EVERY DAY Non-VA ATORVASTATIN CALCIUM 80MG TAB TAKE ONE-HALF TABLET BY MOUTH ONCE DAILY Indication: FOR HIGH CHOLESTEROL Non-VA BECLOMETH 80MCG 120D BREATH ACTVTD INHL INHALE 2 PUFFS BY MOUTH TWICE DAILY OUTPT CARBOXYMETHYLCELLULOSE NA 0.5% OPH SOLN (Status = Pending) INSTILL ONE DROP INTO EACH EYE FOUR TIMES A DAY Login Date: 10/09/23 Qty/Days Supply: Refills Ordered: 3 OUTPT CLOTRIMAZOLE 1% TOP SOLN (Status = Active) APPLY 1 DROP TOPICALLY ONCE DAILY FOR FUNGAL INFECTION. APPLY WHEN NAIL IS DRY (NOT AFTER SHOWER/BATH). USE FOR AT LEAST 9-12 MONTHS. REGULAR NAIL CARE IS RECOMMENDED Rx# [id number] Last Released: 04/12/23 Qty/Days Supply: Rx Expiration Date: 04/10/24 Refills Remainin Indication: FOR FUNGAL INFECTION OF THE SKIN OUTPT EMPAGLIFLOZIN 10MG TAB (Status = Active/Suspended) TAKE ONE TABLET BY MOUTH ONCE DAILY FOR TYPE 2 DIABETES MELLITUS Rx# [id number] Last Released: 08/29/23 Qty/Days Supply: Rx Expiration Date: 04/24/24 Refills Remainin Indication: FOR TYPE 2 DIABETES MELLITUS OUTPT FAMOTIDINE 40MG TAB (Status = Active) TAKE ONE TABLET BY MOUTH ONCE DAILY FOR STOMACH ACID Rx# [id number] Last Released: 07/04/23 Qty/Days Supply: 90 Rx Expiration Date: 04/24/24 Refills Remainin Indication: FOR GASTROESOPHAGEAL REFLUX DISEASE OUTPT FERROUS GLUCONATE 324MG TAB (Status = Active/Suspended) TAKE TWO TABLETS BY MOUTH ONCE DAILY TO SUPPLEMENT IRON Rx# [id number] Last Released: 10/02/23 Qty/Days Supply: 200/90 Rx Expiration Date: 04/17/24 Refills Remainin Indication: TO SUPPLEMENT IRON OUTPT HYDROPHILIC (EQV EUCERIN) TOP CREAM (Status = Active) APPLY A SMALL AMOUNT TOPICALLY ONCE DAILY TO DRY, CRACKED SKIN ON FEET Rx# [id number] Last Released: 06/22/23 Qty/Days Supply: 454/90 Rx Expiration Date: 04/10/24 Refills Remainin Indication: FOR DRY SKIN Non-VA LISINOPRIL 20MG TAB TAKE ONE TABLET BY MOUTH ONCE DAILY Non-VA MAGNESIUM OXIDE 420MG TAB TAKE ONE TABLET BY MOUTH ONCE DAILY OUTPT MULTIVIT/OPHTH AREDS2/LUTE/ZEAX CAP/TAB (Status = Pending) AREDS2/LUTE/ZEAX CAP/TAB TAKE 1 CAPSULE BY MOUTH TWICE DAILY IN THE MORNING AND EVENING, WITH FOOD Login Date: 10/09/23 Qty/Days Supply: 120/60 Refills Ordered: 3 Non-VA OLODATEROL/TIOTROP 2.5MCG/ACTUAT 60D INH INHALE 2 PUFFS (1 DOSE) BY MOUTH ONCE DAILY Non-VA PANTOPRAZOLE NA 40MG EC TAB TAKE ONE TABLET BY MOUTH EVERY MORNING 30 MINUTES BEFORE BREAKFAST Indication: FOR EXCESSIVE PRODUCTION OF STOMACH ACID OUTPT TADALAFIL 20MG TAB (Status = Discontinued) TAKE ONE TABLET BY MOUTH NEEDED Rx# [id number] Last Released: 07/05/23 Qty/Days Supply: 06/18 Rx Expiration Date: 07/19/23 Refills Remainin OUTPT TADALAFIL 20MG TAB (Status = Active) TAKE ONE TABLET BY MOUTH NEEDED Rx# [id number] Last Released: 10/04/23 Qty/Days Supply: 06/18 Rx Expiration Date: 10/03/24 Refills Remainin Non-VA TRAMADOL HCL 50MG TAB TAKE ONE TABLET BY MOUTH Non-VA medication not recommended by VA provider. SUPPLIES OUTPT ACCU-CHEK GUIDE (GLUCOSE) TEST STRIP (Status = Active) USE 1 STRIP TO TEST BLOOD SUGARS TWO TIMES A WEEK Rx# [id number] Last Released: 04/26/23 Qty/Days Supply: 50/180 Rx Expiration Date: 10/21/23 Refills Remainin OUTPT INCONT LINER DEPEND GUARDS (Status = Discontinued) USE 1 PAD TOPICALLY FIVE TIMES A DAY Rx# [id number] Last Released: 07/04/23 Qty/Days Supply: 208/30 Rx Expiration Date: 01/23/24 Refills Remainin OUTPT INCONT LINER DEPEND GUARDS (Status = Active) USE 1 PAD TOPICALLY 8 TIMES/DAY Rx# [id number] Last Released: 09/14/23 Qty/Days Supply: 312/30 Rx Expiration Date: 07/30/24 Refills Remainin OUTPT LANCET,SOFTCLIX (Status = Active) USE 1 LANCET DIRECTED ONCE DAILY NEEDED TO TEST BLOOD SUGAR Rx# [id number] Last Released: 08/02/23 Qty/Days Supply: 100/90 Rx Expiration Date: 07/30/24 Refills Remainin PHARMACY TERMS AND POSSIBLE PATIENT ACTIONS INPT = [place] inpatient order IV = [place] intravenous medication OUTPT = [place] outpatient prescription PHARMACY POSSIBLE PATIENT TERMS EXPLANATION ACTIONS -------- - ACTIVE A prescription that can be If you have refills, filled at the local VA pharmacy. you may request a refill of this prescription from your VA pharmacy. CLINIC A medication you received during If you have questions a visit to a VA clinic or about this medication emergency department. contact your VA healthcare team. DISCONTINUED A prescription your provider has Contact your VA stopped. It is no longer healthcare team if you available to be sent to you or need more of this picked up at the [place] pharmacy medication. window. A prescription which is too old Contact your VA to fill. This does not refer to healthcare team if you the expiration date of the need more of this medication in the container. medication. NON-VA A medication that came from If this medication someplace other than a VA information is pharmacy. This may be a incorrect or out of prescription from either the VA date, please tell your or non VA providers that was VA healthcare team. filled outside the VA. Or, it may be an lwoy-dht-drzvpvz (OTC), herbal, dietary supplements or sample medication. ON HOLD An active prescription that will Contact your VA not be filled until pharmacy pharmacy when you need resolves the issue. more of this medication. PARKED An active prescription that will Contact your VA not be filled until the patient pharmacy when you need requests it. this medication. PENDING This prescription order has been If you have been sent to the pharmacy for review instructed to start and is not ready yet. this medication now, contact your VA pharmacy. SUSPENDED An active prescription that is Contact your VA not scheduled to be filled yet. pharmacy if you need You should receive it before this medication now. you run out. ==== (x) Printed Medication Reconciliation List Offered and Declined by Amalia () Medication Reconciliation List Printed for at Exam () Optometry HT Please Print and Mail Copy of Medication Reconciliation List () AMSA Please Print and Mail Copy of Medication Reconciliation List /es/ SOREN DAILY OPTOMETRY STUDENT Signed: 10/09/2023 13:16 /noe/ MILAD GUILLEN OD COMPUTER TECHNICAL SPECIALIST Cosigned: 10/09/2023 13:18 10/09/2023 ADDENDUM STATUS: COMPLETED The optometry merchandising intern participated in this exam, I saw this Amalia in conjunction with the optometry student. The entrance tests and refraction were performed by the student and reviewed by me. I personally met with the patient, confirmed the hisory, complaints and the student's findings, and performed slit lamp and fundus evaluation as indicated. I reviewed and agree with the stated findings, assessment and plan. I have added/edited the documentation to reflect my exam findings and changes to the assessment and plan. Ed re today's findings. repeated back the plan and education. All reminders completed by attending and documented in student note. /noe/ MILAD GUILLEN OD COMPUTER TECHNICAL SPECIALIST Signed: 10/09/2023 13:18 SOREN DAILY [facility]
--- OUTSIDE RECORDS SUMMARY | 2024-05-05 07:16 | XMS_ITS ---
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 Name Role Phone Kiko Coats Primary Care Provider [phone] Allergies No Known Allergies REASON FOR VISIT still congested with coughing, Video [phone] Medications Medication SIG (Take, Route, Frequency, Duration) Notes Start Date End Date Status Magnesium Oxide -Mg Supplement 400 (240 Mg) MG TAKE 2 TABLETS BY MOUTH ONCE DAILY WITH FOOD FOR 30 DAYS Active Jardiance 10 MG 1 tablet Orally Once a day Active amLODIPine Besylate 5 MG TAKE 1 TABLET B Y MOUTH ONCE A DAY FOR 30 DAY(S) Orally Once a day Active Carvedilol 25 MG 1 tablet with food Orally Twice a day Active Atorvastatin Calcium 40 MG TAKE 1 TABLET BY MOUTH EVERY DAY for 90 Active Levalbuterol Tartrate 45 MCG/ACT 1 puff as needed Inhalation every 6 hrs for 30 days 03/08/2023 Active Ferrous Gluconate 324 (38 Fe) MG 1 tablet Orally once a day Active Pantoprazole Sodium 40 MG 1 tablet Orall y Once a day Active Triamcinolone Acetonide 0.5 % 1 application Externally Once a day for 14 days 11/15/2020 Active Cialis 20 MG 1 tablet Orally Once a day Active Aspir-81 81 MG 1 tablet Orally Once a day for 30 day(s) Active Multi Vitamin Daily - 1 tablet Orally On ce a day for 30 day(s) Active Doxycycline Hyclate 100 MG 1 tablet Orally Once a day for 10 day(s) 03/06/2024 Active Vitamin C 500 MG as directed Orally Active PreserVision AREDS 2 - as directed Orally Active traMADol HCl 100 MG 1 tablet as needed Orally every 8 hours as needed for 30 days 03/06/2024 Active Qvar RediHaler 80 MCG/ACT TAKE 1 PUFF BY MOUTH TWICE A DAY Not-Taking valACYclovir HCl 1 GM TAKE 2 TABLETS BY MOUTH EVERY 12 HOURS for 3 Not-Taking Betamethasone Dipropionate 0.05 % as directed Externally daily for 30 days 02/10/2011 Not-Taking ProAir HFA 108 (90 Base) MCG/ACT 2 puffs as needed Inhalation every 4 hrs for 30 days Not-Taking Ipratropium-Albuterol 0.5-2.5 (3) MG/3ML INHALE 1 VIAL EVERY 4 HOURS NEEDED INHALATION EVERY 6 HRS 30 DAYS Active predniSONE 10 MG 1 tablet with food o r milk Orally 4 tabs for 4 days, 3 tabs for 4 days, 2 tbs for 4 days, and 1 tab for 4 days for 14 days 02/25/2024 Active Albuterol Sulfate HFA 108 (90 Base) MCG/ACT 1 puff as needed Inhalation every 4 hrs 05/07/2023 Not-Takin g Hydrocod Pravin-Chlorphe Pravin ER 10-8 MG/5ML 5 mL as needed Orally every 12 hrs as needed for 10 days 04/26/2023 Not-Taking Stiolto Respimat 2.5-2.5 MCG/ACT INHALE 2 PUFFS INTO THE LUNGS ONCE DAILY Active Levalbuterol Tartrate 45 MCG/ACT inhale 2 puffs as needed every 4 hours for 30 days Inhalation every 6 hrs Active Vital Signs Blood pressure systolic 130 mm Hg 03/06/19 25 Blood pressure diastolic 72 mm Hg 025 Height 70 in 03/06/2024 Weight 170 lbs 03/06/2024 BMI 24.39 kg/m2 03/06/2024 weight is 170 BP 130/72 P 95 Encounters Encounter Location Date Provider Diagnosis Kiko Coats MD [address] [place] [id number] 03/06/2024 Kiko Coats Lumbar disc disease M51.9 and Bronchitis J40 Assessments Encounter Date Diagnosis (ICD Code) Assessment Notes Treatment Notes Treatment Clinical Notes Section Notes 03/06/2024 Lumbar disc disease (ICD-10 - M51.9) 03/06/2024 Bronchitis (ICD-10 - J40) patient verbalized understanding of medication and directions for use. x-ray order faxed to [facility] Plan Of Treatment Medication Medication Name Sig Start Date Stop Date Notes Doxycycline Hyclate 100 MG 1 tablet Oral ly Once a day for 10 day(s) 03/06/2024 traMADol HCl 100 MG 1 tablet as needed O rally every 8 hours as needed for 30 days 03/06/2024 Treatment Notes Assessment Notes Bronchitis patient verbalized u nderstanding of medication and directions for use. x-ray order faxed to [facility] Pending Test Test Name Order Date XR CHEST 2 VIEW PA & LAT 03/06/2024 Next Appt Details Provider Name:Kiko chatman, 05/09/2024 10:00:00 AM, [address] [place] [address], [address], [id number], Provider Name:Kiko chatman, 11/10/2024 08:00:00 AM, [address] [place] [address], [address], [id number], Provider Name:Kiko chatman, 11/17/2024 10:30:00 AM, [address] [place] [address], [address], [id number], Progress Notes * Mikal DENNYDOB: [birth year] (74 yo M)Acc No.[id number]:03/06/2024 Patient:?Mikal DENNY Provider:?Kiko Coats MD :1950???Age:73 Y???Sex:Male Kyle e:03/06/2024 Address:[address], [id number] Subjective: * Chief Complaints: * ???Still congested with coug hingVideo [phone] * HPI: ???Symptom(s):?Telehealth?Location of provider rendering services:?[address], [address],?Location of patient:?at address listed in demographics for today's visit,?Patient identification confirmed using:?Name, ,?Telehealth method:?Telephone only. Patient not visible to care provider.,?Consent:?Patient verbally consented to treatment, Patient verbally consented to billing insurance company, Patient informed of any privacy concerns related to method of visit,?Total time spend talking with patient (minutes)?12.? patienti is a 73 yo male audio telehealth visit , still coughing and congested. is on prednisone taper. * ROS:?General/Constitutional:?Denies?Chills.?Denies?Fatigue.?Denies?Fever.?Denies?Headache.?ENT:?Patient denies?decreased sense of smell , any loss of taste , sore throat.?Admits?Sore throat.?Respiratory:?Patient complaining of?c/o chest? congestion.?Admits?Cough.?Denies?Shortness of breath at rest.?Admits?Shortness of breath with exertion.?Denies?Sputum production.?Gastrointestinal:?Denies?Diarrhea.?Denies?Nausea.?Musculoskeletal:?Patient denies?muscle aches.?Peripheral Vascular:?Patient denies?red and blue toes.? * Medical History:? * Surgical History:? * Hospitalization/Major Diagno stic Procedure:? * Medications:?TakingVitamin C 500 MG Capsule as directed Orally PreserVision AREDS 2 - Capsule as directed Orally Aspir-81 81 MG Tablet Delayed Release 1 tablet Orally Once a day Multi Vitamin Daily - Tablet 1 tablet Orally Once a day Triamcinolone Acetonide 0.5 % Cream 1 application Externally Once a day Cialis 20 MG Tablet 1 tablet Orally Once a day Levalbuterol Tartrate 45 MCG/ACT Aerosol 1 puff as needed Inhalation every 6 hrs Ferrous Gluconate 324 (38 Fe) MG Tablet 1 tablet Orally once a day Pantoprazole Sodium 40 MG Tablet Delayed Release 1 tablet Orally Once a day Magnesium Oxide - Mg Supplement 400 (240 Mg) MG Tablet TAKE 2 TABLETS BY MOUTH ONCE DAILY WITH FOOD FOR 30 DAYS amLODIPine Besylate 5 MG Tablet TAKE 1 TABLET BY MOUTH ONCE A DAY FOR 30 DAY(S) Orally Once a day Carvedilol 25 MG Tablet 1 tablet with food Orally Twice a day traMADol HCl 100 MG Tablet 1 tablet as needed Orally every 8 hours as needed Atorvastatin Calcium 40 MG Tablet TAKE 1 TABLET BY MOUTH EVERY DAY Jardiance 10 MG Tablet 1 tablet Orally Once a day Levalbuterol Tartrate 45 MCG/ACT Aerosol inhale 2 puffs as needed every 4 hours for 30 days Inhalation every 6 hrs Stiolto Respimat 2.5-2.5 MCG/ACT Aerosol Solution INHALE 2 PUFFS INTO THE LUNGS ONCE DAILY Ipratropium-Albuterol 0.5-2.5 (3) MG/3ML Solution INHALE 1 VIAL EVERY 4 HOURS NEEDED INHALATION EVERY 6 HRS 30 DAYS predniSONE 10 MG Tablet 1 tablet with food or milk Orally 4 tabs for 4 days, 3 tabs for 4 days, 2 tbs for 4 days, and 1 tab for 4 days Taking Vitamin C 500 MG Capsule as directed Orally Taking PreserVision AREDS 2 - Capsule as directed Orally Taking Aspir-81 81 MG Tablet Delayed Release 1 tablet Orally Once a day Taking Multi Vitamin Daily - Tablet 1 tablet Orally Once a day Taking Triamcinolone Acetonide 0.5 % Cream 1 application Externally Once a day Taking Cialis 20 MG Tablet 1 tablet Orally Once a day Taking Levalbuterol Tartrate 45 MCG/ACT Aerosol 1 puff as needed Inhalation every 6 hrs Taking Ferrous Gluconate 324 (38 Fe) MG Tablet 1 tablet Orally once a day Taking Pantoprazole Sodium 40 MG Tablet Delayed Release 1 tablet Orally Once a day Taking Magnesium Oxide -Mg Supplement 400 (240 Mg) MG Tablet TAKE 2 TABLETS BY MOUTH ONCE DAILY WITH FOOD FOR 30 DAYS Taking amLODIPine Besylate 5 MG Tablet TAKE 1 TABLET BY MOUTH ONCE A DAY FOR 30 DAY(S) Orally Once a day Taking Carvedilol 25 MG Tablet 1 tablet with food Orally Twice a day Taking traMADol HCl 100 MG Tablet 1 tablet as needed Orally every 8 hours as needed Taking Atorvastatin Calcium 40 MG Tablet TAKE 1 TABLET BY MOUTH EVERY DAY Taking Jardiance 10 MG Tablet 1 tablet Orally Once a day Taking Levalbuterol Tartrate 45 MCG/ACT Aerosol inhale 2 puffs as needed every 4 hours for 30 days Inhalation every 6 hrs Taking Stiolto Respimat 2.5-2.5 MCG/ACT Aerosol Solution INHALE 2 PUFFS INTO THE LUNGS ONCE DAILY Taking Ipratropium-Albuterol 0.5-2.5 (3) MG/3ML Solution INHALE 1 VIAL EVERY 4 HOURS NEEDED INHALATION EVERY 6 HRS 30 DAYS Taking predniSONE 10 MG Tablet 1 tablet with food or milk Orally 4 tabs for 4 days, 3 tabs for 4 days, 2 tbs for 4 days, and 1 tab for 4 days Not-Taking/PRNAlbuterol Sulfate HFA 108 (90 Base) MCG/ACT Aerosol Solution 1 puff as needed Inhalation every 4 hrs Hydrocod Pravin-Chlorphe Pravin ER 10-8 MG/5ML Suspension Extended Release 5 mL as needed Orally every 12 hrs as needed Qvar RediHaler 80 MCG/ACT Aerosol Breath Activated TAKE 1 PUFF BY MOUTH TWICE A DAY valACYclovir HCl 1 GM Tablet TAKE 2 TABLETS BY MOUTH EVERY 12 HOURS Betamethasone Dipropionate 0.05 % Cream as directed Externally daily ProAir HFA 108 (90 Base) MCG/ACT Aerosol Solution 2 puffs as needed Inhalation every 4 hrs Medication List reviewed and reconciled with the patientNot-Taking/PRN Albuterol Sulfate HFA 108 (90 Base) MCG/ACT Aerosol Solution 1 puff as needed Inhalation every 4 hrs Not-Taking/PRN Hydrocod Pravin-Chlorphe Pravin ER 10-8 MG/5ML Suspension Extended Release 5 mL as needed Orally every 12 hrs as needed Not-Taking/PRN Qvar RediHaler 80 MCG/ACT Aerosol Breath Activated TAKE 1 PUFF BY MOUTH TWICE A DAY Not-Taking/PRN valACYclovir HCl 1 GM Tablet TAKE 2 TABLETS BY MOUTH EVERY 12 HOURS Not-Taking/PRN Betamethasone Dipropionate 0.05 % Cream as directed Externally daily Not-Taking/PRN ProAir HFA 108 (90 Base) MCG/ACT Aerosol Solution 2 puffs as needed Inhalation every 4 hrs Medication List reviewed and reconciled with the patient * Allergies:?N.K.D.A.yes[Aller gies Verified] Objective: * Vitals:?Ht: 70, Wt:170, BMI: 24.39, BP:130/72. weight is 170 BP 130/72 P 95. Assessment: * Assessment: 1.?Lumbar disc disease - M51 .9 (Primary)???2.?Bronchitis - J40??? Plan: * Treatment: 2.?Bronchitis? Start Doxycycline Hyclate Tablet, 100 MG, 1 tablet, Orally, Once a day, 10 day(s), 10.?Imaging: XR CHEST 2 VIEW PA & LAT Notes: patient verbalized understanding of medication and directions for use. x-ray order faxed to [facility] ?? * Procedure Codes:? * * Sign off status: Completed true * Provider:?Kiko Coats MD Date:?0 03/06/2024 Generated for Maryam fontaine/Pamela/eTransmitting on:?05/05/2024 07:16 AM EDT History and Physical Notes * HPI (History of Present Illness) Category Sub-Category Detail Notes Category Not es Symptom(s) Telehealth Location of [facility]:: [address] [place] [address] Drive, [address] patienti is a 73 yo male audio telehealth visit , still coughing and congested. is on prednisone taper Location of patient:: at address listed in demographics for today's visit Patient identification confirmed using:: Name, Telehealth method:: Telephone only. Suzette ent not visible to care provider. Consent:: Patient verbally c onsented to treatment, Patient verbally consented to billing insurance company, Patient informed of any privacy concerns related to method of visit Total time spend talking with patient (m inutes): 12
--- OUTSIDE RECORDS SUMMARY | 2024-05-05 07:16 | XMS_ITS | Encounter Summary ---
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 Name Role Phone TAMRA HINSON Primary Care Provider [facility] Insurance Providers: All historical and current [...] POINT OF SERVICE [facility] Jun 04, 2017 [id number] QUENTIN DENNY PATIENT [employer] POINT OF SERVICE [facility] CHOI E Feb 19, 2017 [id number] [phone] DENISHA QUENTIN PATIENT [place] PRESCRIPT ION [facility] Jun 04, 2017 [id number] QUENTIN DENNY PATIENT [place] PRESCRIPT ION [facility] ANDLE RS Feb 19, 2017 [id number] QUENTIN DENNY PATIENT [place] PRESCRIPT ION [facility] Feb 19, 2017 [id number] QUENTIN DENNY PATIENT [employer] PRESCRIPT ION [facility] Feb 19, 2017 [id number] [phone] QUENTIN DENNY PATIENT [employer] PRESCRIPT ION RASHEEDA ANDLUIZ RS Aug 19, 2005 [id number] QUENTIN DENNY PATIENT [place] PRESCRIPT ION RASHEEDA ANDLUIZ RS Aug 19, 2005 [id number] [id number] [phone] QUENTIN DENNY PATIENT 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 POINT OF SERVICE [facility] Feb 19, 2017 [id number] QUENTIN DENNY PATIENT 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AN POINT OF SERVICE [facility] Feb 19, 2017 [id number] [phone] QUENTIN DENNY PATIENT 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 [employer]EFIT PLAN POINT OF SERVICE [facility] Feb 19, 2017 [id number] [phone] QUENTIN DENNY PATIENT NAMHANDLUIZ RS BENEFIT PLAN POINT OF SERVICE [facility] Jun 04, 2017 [id number] [phone] QUENTIN DENNY PATIENT NAMHANDLE RS BENEFIT PLAN PREFERRED PROVIDER ORGANIZAT ION (PPO) STAND TRACI Aug 19, 2005 [id number] [id number] [phone] QUENTIN DENNY PATIENT MEDICARE ([facility]) MEDICARE () PART B Apr 19, 2013 PART B [id number] QUENTIN DENNY PATIENT MEDICARE ([facility]) MEDICARE () PART B Apr 19, 2013 PART B [id number] QUENTIN DENNY PATIENT MEDICARE ([place]) MEDICARE () PART B Apr 19, 2013 PART B [id number] QUENTIN DENNY PATIENT MEDICARE (WN) MEDICARE () PART B Apr 19, 2013 PART B [id number] [id number] QUENTIN DENNY PATIENT MEDICARE (WN) MEDICARE () PART A Mar 22, 2013 PART A [id number] QUENTIN DENNY PATIENT MEDICARE (WNR) MEDICARE (M) PART A Mar 22, 2013 PART A [id number] QUENTIN DENNY PATIENT MEDICARE (WNR) MEDICARE (M) PART A Mar 22, 2013 PART A [id number] QUENTIN DENNY PATIENT MEDICARE (WNR) MEDICARE (M) PART A Mar 22, 2013 PART A [id number] QUENTIN DENNY PATIENT MEDICARE (WNR) MEDICARE (M) PART A Mar 22, 2013 PART A [id number] QUENTIN DENNY PATIENT MEDICARE (WNR) MEDICARE (M) PART B Mar 22, 2013 PART B [id number] [id number] [id number] QUENTIN DENNY PATIENT Selected Encounter This section includes the information on record at [place] for the Encounter. Date/Time Encounter Type Encounter Description Reason Pro vider Source Oct 03, 2023 02:52 AM Outpatient Encounter ADMIN PAT ACTIVTIES (MASNONCT) IHE Encounter Template Text not used by [place] Plan of Treatment: Future Appointments (+ 6 months) and Future Tests (+/- 45 days) The Plan of Treatment section includes future care activities for the patient from all [place] treatmentfacilities. This section includes future appointments and future orders which are active, pending or scheduled. Future Appointments This section includes appointments that were scheduled to occur 6 months from the date of the Encounter, up to a maximum of 20 appointments. The data comes from all [place] treatment facilities. Appointment Date/Time Appointment Type Appointme nt Facility Name Oct 09, 2023 09:30 AM AM[facility]ULATORY [place]ICINE [place] [facility] [place] [facility] Oct 09, 2023 10:45 AM [facility] [place] [facility] [place] [facility] Oct 19, 2023 02:15 PM [facility] [place] [facility]INE [facility] [place] [facility] Oct 29, 2023 10:00 AM [facility] [place] [facility] [place] [facility] Jan 11, 2024 08:00 AM [facility] [place] [facility] [place] [facility] Jan 31, 2024 01:30 PM [facility] [place] [facility] [place] [facility] [place] [facility] Feb 26, 2024 09:00 AM AMBULATORY - MEDICINE [facility] [place] [facility] Apr 04, 2024 09:30 AM AMBULATORY - [facility] Lab Results: +/- 30 days of the encounter This section includes the Chemistry and Hematology Lab Results on record with [place] for the patient. Radiology Reports and Pathology Reports are provided separately, in subsequent sections. Lab Results This section contains the Chemistry/Hematology Results that were resulted 30 days before or 30 daysafter the date of the Encounter. Date/Time Source Result Type Result - Unit Interpretation Reference Range Comment Oct 19, 2023 09:00 AM [facility] HEMOGLOBIN A1C PANEL Specimen Type: [...] Oct 09, 2023 12:53 PM Reporting Lab: [address] [id number] Performing Lab: [address] [address] HEMOGLOBIN A1C 6.0 H 4.0-5.6 Oct 19, 2023 09:00 AM [facility] LIPID PANEL, NON FASTING Specimen Type: SERUM No comment entered. Ordering Provider: TAMRA HINSON Report Released Date/Time: Oct 09, 2023 12:53 PM Reporting Lab: [address] [address] Performing Lab: [address] [address] CHOLESTEROL 118 mg/dL TRIGLYCERIDE 237 mg/dL H 0-150 LDL calculated 40 mg/dL 0-129 CHOL/HDL 3.8 HDL CHOLESTEROL 31 mg/dL L 40-60 Social History: Smoking Status (Most current) and Tobacco Use (All prior to encounter date) This section includes the most current, and the historical, smoking and tobacco- related health factors from the [place] facility where the Encounter took place. Current Smoking Status This section includes the most current smoking, or tobacco-related health factor, from the [place] facility where the Encounter took place. Date/Time Current Smoking Status Comment James it Apr 24, 2023 10:30 AM VA-TOBACCO FORMER USER [facility] [place] [facility] Tobacco Use History This section includes a history of the smoking, or tobacco-related health factors, that were collected on or before the date of the Encounter. The data comes from the [place] facility where the Encounter took place. Date/Time Smoking Status/Tobac co Use Comment Facility Apr 24, 2023 10:30 AM VA-TOBACCO QUIT 15 YRS OR MORE [facility] [place] [facility] Mar 22, 2022 11:00 AM VA-TOBACCO FORMER USER [facility] [place] [facility] Mar 22, 2022 11:00 AM VA-TOBACCO QUIT 15 YRS OR MORE [facility] [place] [facility] Oct 21, 2020 09:30 AM VA-TOBACCO NEVER USED [facility] [place] [facility] Nov 04, 2019 08:30 AM VA-TOBACCO FORMER USER [facility] [place] [facility] Nov 04, 2019 08:30 AM VA-TOBACCO QUIT 15 YRS OR MORE [facility] [place] [facility] May 06, 2018 08:27 AM VA-TOBACCO FORMER USER [facility] [place] [facility] May 06, 2018 08:27 AM VA-TOBACCO QUIT 15 YRS OR MORE [facility] [place] [facility] Nov 05, 2017 09:54 AM QUIT TOBACCO USE > 7 YEARS AGO [facility] [place] [facility] June 28, 2016 09:36 AM QUIT TOBACCO USE > 7 YEARS AGO [facility] [place] [facility] Mar 15, 2015 10:54 AM LIFETIME NON-TOBACCO USER quit cigs. 1998 [facility] [place] [facility] Nov 14, 2004 02:40 PM HISTORY OF SMOKING [facility] [place] [facility] May 18, 2003 09:05 AM HISTORY OF SMOKING quit August 1998 [facility] [place] [facility] Jun 09, 2002 08:40 AM HISTORY OF SMOKING quit 99. [facility] Jun 09, 2002 08:40 AM QUIT TOBACCO USE > 7 YEARS AGO [facility] Jun 10, 2001 08:50 AM HISTORY OF SMOKING quit 1999 [facility] Jun 10, 2001 08:50 AM QUIT TOBACCO USE 1-7 YEARS AGO [facility] Jun 08, 2000 02:55 PM HISTORY OF SMOKING quit 2yrs ago [facility] Encounter Notes: All associated encounter notes This section contains the clinical notes associated to the Encounter. Date/Time Encounter Note(s) Provider Source Oct 03, 2023 02:52 AM PHARMACY NOTE: LOCAL TITLE: PHARMACY CUSTOMER CARE MEDICATION RENEWAL STANDARD TITLE: PHARMACY NOTE DATE OF NOTE: OCT 03, 2023@02:52 ENTRY DATE: OCT 03, 2023@02:52:53 AUTHOR: SHERWIN BENNETT EXP COSIGNER: URGENCY: STATUS: COMPLETED Date: Sep Division: [place] Pt referred by Pharmacy Call Center for medication renewal: Non-controlled/maintenan ce medication Medications requested: [id number] TADALAFIL 20MG TAB Defer to primary care provider To be mailed . Please review and renew if appropriate. *This note was generated by [facility] Pharmacy Customer Care. If you have any questions or need assistance, do not contact this author. Please refer all questions to your local, on-site pharmacy departments. /noe/ SHERWIN BENNETT [facility] Cable Splicer Assistant, [facility]/Pharmacy Customer Care Signed: 10/03/2023 02:53 Receipt Acknowledged By: 10/03/2023 08:31 /noe/ TAMRA HINSON D.O. PHYSICIAN 10/03/2023 08:40 /es/ GONZALO ROCHA, RN REGISTERED NURSE SHERWIN BENNETT [facility]
--- OUTSIDE RECORDS SUMMARY | 2024-05-05 07:16 | XMS_ITS | Encounter Summary ---
Author Name [facility] [place] Address [address] [place] [address] Care Team Providers Care Sustainable Landscape Architect Name Role Phone TAMRA HNISON [facility] Insurance Providers: All historical and [...] POINT OF SERVICE MHBP Jun 04, 2017 [id number] [phone] QUENTIN DENNY PATIENT AETNA POINT OF SERVICE MHBP CHOI E Feb 19, 2017 [id number] QUENTIN DENNY PATIENT CAREMARK PRESCRIPT ION MHBP Jun 04, 2017 [id number] [phone] CELSAQUENTIN BE PATIENT CAREMARK PRESCRIPT ION MAILH ANDLE RS Feb 19, 2017 [id number] QUENTIN DENNY PATIENT CAREMARK PRESCRIPT ION MHBP Feb 19, 2017 [id number] QUENTIN DENNY PATIENT CAREMARK PRESCRIPT ION MHBP Feb 19, 2017 [id number] QUENTIN DENNY PATIENT CAREMARK PRESCRIPT ION [facility] AND[facility]UIZ RS Aug 19, 2005 [id number] QUENTIN DENNY PATIENT CAREMARK PRESCRIPT ION [facility] Aug 19, 2005 [id number] QUENTIN DENNY PATIENT 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 BENEFIT PLAN POINT OF SERVICE MHBP Feb 19, 2017 [id number] QUENTIN DENNY PATIENT 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 BENEFIT PLAN POINT OF SERVICE MHBP Feb 19, 2017 [id number] [phone] QUENTIN DENNY PATIENT 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 BENEFIT PLAN POINT OF SERVICE MHBP Feb 19, 2017 [id number] QUENTIN DENNY PATIENT NAMHANDLE RS BENEFIT PLAN POINT OF SERVICE MHBP Jun 04, 2017 [id number] QUENTIN DENNY PATIENT NAMHANDLE RS BENEFIT PLAN PREFERRED PROVIDER ORGANIZAT ION (PPO) STAND TRACI Aug 19, 2005 [id number] QUENTIN DENNY PATIENT MEDICARE ([facility]) MEDICARE () PART B Apr 19, 2013 PART B [id number] QUENTIN DENNY PATIENT MEDICARE ([facility]) MEDICARE () PART B Apr 19, 2013 PART B [id number] QUENTIN DENNY PATIENT MEDICARE (WN) MEDICARE () PART B Apr 19, 2013 PART B [id number] QUENTIN DENNY PATIENT MEDICARE ([facility]) MEDICARE () PART B Apr 19, 2013 PART B [id number] [id number] QUENTIN DENNY PATIENT MEDICARE ([facility]) MEDICARE () PART A Mar 22, 2013 PART A [id number] [phone] QUENTIN DENNY PATIENT MEDICARE ([facility]) MEDICARE () PART A Mar 22, 2013 PART A [id number] QUENTIN DENNY PATIENT MEDICARE (WNR) MEDICARE (M) PART A Mar 22, 2013 PART A [id number] QUENTIN DENNY PATIENT MEDICARE (WNR) MEDICARE (M) PART A Mar 22, 2013 PART A [id number] QUENTIN DENNY PATIENT MEDICARE (WNR) MEDICARE (M) PART A Mar 22, 2013 PART A [id number] QUENTIN DENNY PATIENT MEDICARE (WNR) MEDICARE (M) PART B Mar 22, 2013 PART B [id number] QUENTIN DENNY PATIENT Selected Encounter This section includes the information on record at [place] for the Encounter. Date/Time Encounter Type Encounter Description Reason Provider Source Apr 04, 2024 09:30 AM HEARING AID REPAIR/MODIFYING AUDIOLOGY ICD-10-CM Z46.1 Encounter for fitting and adjustment of hearing aid LILA CHAU Encounter Template Text not used by [place] Assessments - Encounter Diagnoses This section includes [...] 24, 2024 10:00 AM AMBULATORY - MEDICINE [facility] May 05, 2024 02:00 PM [facility] May 06, 2024 11:00 AM [facility] [place] [facility] [place] [facility] Jul 23, 2024 09:30 AM [facility] Aug 27, 2024 10:00 AM AMBULATORY - MEDICINE [facility] Active, Pending, and Scheduled Orders This section includes a listing of several types of active, pending, and scheduled orders, including clinic medications orders, diagnostic test orders, procedure orders and consult orders; where the start date of the order is 45 days before the date of the Encounter or 45 days after the date of theEncounter. The data comes from all [place] treatment facilities. Test Date/Time Test Type Test Details Facility Name Apr 24, 2024 10:43 AM Consult Order PHYSICAL T HERAPY/SPOPC OUTPT Cons Early Head Start Director's Choice [facility] Lab Results: +/- 30 days [...] Range Comment Apr 23, 2024 09:36 AM [facility] HEMOGLOBIN A1C PANEL Specimen Type: [...] Oct 29, 2023 10:41 AM Reporting Lab: [facility] [address] [facility] [address] Performing Lab: [address] [address] HEMOGLOBIN A1C 6.1 H 4.0-5.6 Apr 23, 2024 09:36 AM [facility] LIPID PANEL FASTING Specimen Type: SERUM No comment entered. Ordering Provider: TAMRA HINSON Report Released Date/Time: Oct 29, 2023 10:41 AM Reporting Lab: [address] [address] Performing Lab: [address] [address] CHOLESTEROL 124 mg/dL TRIGLYCERIDE 307 mg/dL H [...] the Encounter. The data comes from all [place] treatment facilities. Date/Time Radiology Report Provider Source Apr 24, 2024 11:26 AM SPINE CERVICAL, 4 OR 5 VIEWS: QUENTIN DENNY Matt [id number] -[phone] M Ex Date: APR 24, 2024@11:26 Req Phys: TAMRA HINSON Pat Loc: [facility] PACT EIGHT MD (Req'g Loc) Im Loc: [facility] 1 Service: [place] [address] (Case [id number] COMPLETE) SPINE CERVICAL, 4 OR 5 VIEWS (RAD Detailed) CPT:07413 Reason for Study: neck pain x 1 month Clinical History: Report Status: Verified Date Reported: APR 24, 2024 Date Verified: APR 24, 2024 Senior Electronics Technician E-Sig:/ES/KADEN ZAMORA JR Report: Study: AP, lateral [...] Primary Interpreting Staff: KADEN ZAMORA JR, Radiologist (Senior Electronics Technician) /KADEN ROBB JR [facility] Encounter Notes: All associated encounter notes This section contains the clinical notes associated to the Encounter. Date/Time Encounter Note(s) Provider Source Apr 04, 2024 07:36 AM AUDIOLOGY NOTE: LOCAL TITLE: AUDIOLOGY HEALTH METERS SUPERINTENDENT STANDARD TITLE: AUDIOLOGY NOTE DATE OF NOTE: APR 04, 2024@07:36 ENTRY DATE: APR 04, 2024@07:37:05 AUTHOR: MANUEL RIVERO EXP COSIGNER: LILA CHAU URGENCY: STATUS: COMPLETED April 04, 2024 History/Background: was seen for a hearing aid follow up at the [facility], unaccompanied. The presented today requesting maintenance on his hearing aids. Hearing aids: GN Resound Omnia 61 [employer] Serial Numbers: [id number] Battery Size: 312 Date Issued: 03/09/2022 Hearing aid check: Both hearing aids were cleaned and checked. Replaced right associate professor of automation(no left associate professor of automation in stock at [facility]) domes, batteries, left wax guard and retention lines. Biologic check was good. Both hearing aids were connected to LALA to confirm user settings. Otoscopy: Clear canals. Wax guard supply ordered per Veterans request. Plan: The will follow up as needed. /noe/ MANUEL RIVERO Audiology Health Composition Roll Maker And Cutter Signed: 04/04/2024 09:59 /es/ Yeni RODRÍGUEZ, CCC-A Direct Sales Consultant Chief, Audiology Cosigned: 04/04/2024 10:21 MANUEL RIVERO
--- OUTSIDE RECORDS SUMMARY | 2024-05-05 07:16 | XMS_ITS | Encounter Summary ---
Author Name [facility] [place] Address [address] [place] [address] Care Team Providers Care Paint Grinder Stone [employer] Name Role Phone TAMRA HINSON Primary Care Provider [facility] Insurance Providers: All historical [...] POINT OF SERVICE MHBP Jun 04, 2017 [id number] QUENTIN DENNY PATIENT AETNA POINT OF SERVICE MHBP CHOI E Feb 19, 2017 [id number] DENISHA QUENTIN PATIENT CAREMARK PRESCRIPT ION MHBP Jun 04, 2017 [id number] [phone] QUENTIN DENNY PATIENT CAREMARK PRESCRIPT ION NAM ANDLUIZ RS Feb 19, 2017 [id number] QUENTIN DENNY PATIENT CAREMARK PRESCRIPT ION MHBP Feb 19, 2017 [id number] QUENTIN DENNY PATIENT CAREMARK PRESCRIPT ION MHBP Feb 19, 2017 [id number] QUENTIN DENNY PATIENT CAREMARK PRESCRIPT ION RASHEEDA ANDLUIZ RS Aug 19, 2005 [id number] QUENTIN DENNY PATIENT CAREMARK PRESCRIPT ION RASHEEDA ANDLUIZ RS Aug 19, 2005 [id number] [phone] QUENTIN DENNY PATIENT 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 BENEFIT PLAN POINT OF SERVICE MHBP Feb 19, 2017 [id number] [phone] QUENTIN DENNY PATIENT 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 BENEFIT PLAN POINT OF SERVICE MHBP Feb 19, 2017 [id number] QUENTIN DENNY PATIENT 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 BENEFIT PLAN POINT OF SERVICE MHBP Feb 19, 2017 [id number] [phone] QUENTIN DENNY PATIENT NAMHANDLE RS BENEFIT PLAN POINT OF SERVICE MHBP Jun 04, 2017 [id number] QUENTIN DENNY PATIENT NAMHANDLE RS BENEFIT PLAN PREFERRED PROVIDER ORGANIZAT ION (PPO) STAND TRACI Aug 19, 2005 [id number] [phone] QUENTIN DENNY PATIENT MEDICARE ([facility]) MEDICARE () PART B Apr 19, 2013 PART B [id number] [phone] [id number] QUENTIN DENNY PATIENT MEDICARE ([facility]) MEDICARE () PART B Apr 19, 2013 PART B [id number] [phone] QUENTIN DENNY PATIENT MEDICARE (WN) MEDICARE () PART B Apr 19, 2013 PART B [id number] QUENTIN DENNY PATIENT MEDICARE ([facility]) MEDICARE () PART B Apr 19, 2013 PART B [id number] QUENTIN DENNY PATIENT MEDICARE ([facility]) MEDICARE () PART A Mar 22, 2013 PART A [id number] [phone] [id number] QUENTIN DENNY PATIENT MEDICARE (WNR) MEDICARE (M) PART A Mar 22, 2013 PART A [id number] QUENTIN DENNY PATIENT MEDICARE (WNR) MEDICARE (M) PART A Mar 22, 2013 PART A [id number] QUENTIN DENNY PATIENT MEDICARE (WNR) MEDICARE (M) PART A Mar 22, 2013 PART A [id number] QUENTIN DENNY PATIENT MEDICARE (WNR) MEDICARE (M) PART A Mar 22, 2013 PART A [id number] QUENTIN DENNY PATIENT MEDICARE (WNR) MEDICARE (M) PART B Mar 22, 2013 PART B [id number] QUENTIN DENNY PATIENT Selected Encounter This section includes the information on record at [place] for the Encounter. Date/Time Encounter Type Encounter Description Reason Provider Source Oct 09, 2023 10:45 AM CPTR OPHTH DX IMG POST SEGMT OPTOMETRY ICD-10-CM 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, left eye, with actv MILAD Sutton Jarod Encounter Template Text not used by [place] Assessments - Encounter Diagnoses This section includes the primary and secondary diagnoses documented for the Encounter. Date/Time Primary/Secondary Diagnosis Diagnosis Name Provider Source Oct 26, 2023 11:39 AM PRIMARY Exdtve age-rel mclr degn, left eye, with actv MILAD Sutton [facility] Plan of Treatment: Future Appointments (+ 6 months) and Future Tests (+/- 45 days) The Plan of Treatment section includes future care activities for the patient from all [place] treatmentfacilities. This section includes future appointments and future orders which are active, pending or scheduled. Future Appointments This section includes appointments that were scheduled to occur 6 months from the date of the Encounter, up to a maximum of 20 appointments. The data comes from all [place] treatment facilities. Appointment Date/Time Appointment Type Appointme nt Facility Name Oct 19, 2023 02:15 PM AMBULATORY - MEDICINE [facility] Oct 29, 2023 10:00 AM [place] [facility] [place] [facility] Jan 11, 2024 08:00 AM [place] [facility] [place] [facility] Jan 31, 2024 01:30 PM [place] [facility] [place] [facility] Feb 26, 2024 09:00 AM [place] [facility] [place] [facility] Apr 04, 2024 09:30 AM AMBULATORY - [facility] Lab Results: +/- 30 days of the encounter This section includes the Chemistry and Hematology Lab Results on record with [place] for the patient. Radiology Reports and Pathology Reports are provided separately, in subsequent sections. Lab Results This section contains the Chemistry/Hematology Results that were resulted 30 days before or 30 daysafter the date of the Encounter. Date/Time Source Result Type Result - Unit Interpretation Reference Range Comment Oct 19, 2023 09:00 AM [facility] HEMOGLOBIN A1C PANEL Specimen Type: BLOOD [...] Oct 09, 2023 12:53 PM Reporting Lab: [facility] [address] [address] Performing Lab: [facility] [address] [address] HEMOGLOBIN A1C 6.0 H 4.0-5.6 Oct 19, 2023 09:00 AM [facility] LIPID PANEL, NON FASTING Specimen Type: SERUM No comment entered. Ordering Provider: TAMRA HINSON Report Released Date/Time: Oct 09, 2023 12:53 PM Reporting Lab: [facility] [address] [address] Performing Lab: [address] [address] CHOLESTEROL 118 mg/dL TRIGLYCERIDE 237 mg/dL H 0-150 LDL calculated 40 mg/dL 0-129 CHOL/HDL 3.8 HDL CHOLESTEROL 31 mg/dL L 40-60 Social History: Smoking Status (Most current) and Tobacco Use (All prior to encounter date) This section includes the most current, and the historical, smoking and tobacco- related health factors from the [place] facility where the Encounter took place. Current Smoking Status This section includes the most current smoking, or tobacco-related health factor, from the [place] facility where the Encounter took place. Date/Time Current Smoking Status Comment [facility] Apr 24, 2023 10:30 AM VA-TOBACCO FORMER USER [place] [facility] [place] [facility] Tobacco Use History This section includes a history of the smoking, or tobacco-related health factors, that were collected on or before the date of the Encounter. The data comes from the [place] facility where the Encounter took place. Date/Time Smoking Status/Tobac co Use Comment Facility Apr 24, 2023 10:30 AM VA-TOBACCO QUIT 15 YRS OR MORE [place] [facility] [place] [facility] Mar 22, 2022 11:00 AM VA-TOBACCO FORMER USER [place] [facility] [place] [facility] Mar 22, 2022 11:00 AM VA-TOBACCO QUIT 15 YRS OR MORE [place] [facility] [place] [facility] Oct 21, 2020 09:30 AM VA-TOBACCO NEVER USED [place] [facility] [place] [facility] Nov 04, 2019 08:30 AM VA-TOBACCO FORMER USER [place] [facility] [place] [facility] Nov 04, 2019 08:30 AM VA-TOBACCO QUIT 15 YRS OR MORE [place] [facility] [place] [facility] May 06, 2018 08:27 AM VA-TOBACCO FORMER USER [place] [facility] [place] [facility] May 06, 2018 08:27 AM VA-TOBACCO QUIT 15 YRS OR MORE [place] [facility] [place] [facility] Nov 05, 2017 09:54 AM QUIT TOBACCO USE > 7 YEARS AGO [place] [facility] [facility] June 28, 2016 09:36 AM QUIT TOBACCO USE > 7 YEARS AGO [place] [facility] [place] [facility] Mar 15, 2015 10:54 AM LIFETIME NON-TOBACCO USER quit cigs. 1998 [place] [facility] Nov 14, 2004 02:40 PM [facility] May 18, 2003 09:05 AM HISTORY OF SMOKING quit August 1998 [place] [facility] [place] [facility] Jun 09, 2002 08:40 AM HISTORY OF SMOKING quit [facility]. [facility] Jun 09, 2002 08:40 AM QUIT TOBACCO USE > 7 YEARS AGO [facility] [place] [facility] Jun 10, 2001 08:50 AM HISTORY OF SMOKING quit 1998 [place] [facility] Jun 10, 2001 08:50 AM QUIT TOBACCO USE 1-7 YEARS AGO [facility] Jun 08, 2000 02:55 PM HISTORY OF SMOKING quit 2yrs ago [facility] Encounter Notes: All associated encounter notes This section contains the clinical notes associated to the Encounter. 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 Mac OCT confirms bilateral PED with mild ERM OU. Educated pt on exam findings. Begin AREDS BID po. Referral made to [facility] for a consult within one month for CNVM OD. RTC 6 months for d/u exam. /noe/ SOREN DAILY OPTOMETRY STUDENT Signed: 10/09/2023 13:15 /noe/ MILAD GUILLEN OD SUPERVISING EDITOR TRAILER Cosigned: 10/09/2023 13:18 10/09/2023 ADDENDUM STATUS: COMPLETED The optometry real estate internship participated in this exam. I saw this [place] in conjunction with the optometry student. The visual images were captured by the optometry health distribution technician. Results of testing assessed by the student and reviewed by myself. [place]'s history, complaints and student's findings and plan reviewed. I reviewed and agree with the stated findings, assessment and plan. I have added/edited the documentation to reflect my exam findings and changes to the assessment and plan. /noe/ MILAD GUILLEN OD SUPERVISING EDITOR TRAILER Signed: 10/09/2023 13:19 SOREN DAILY [place] [facility]
--- OUTSIDE RECORDS SUMMARY | 2024-05-05 07:16 | XMS_ITS | Continuity of Care Document ---
Author Name [facility] Organization [facility] Care Team Providers Care Java Swing Developer Name Role Phone [facility] Unavailable Unavailable Problems Combined list of problems from Department of Defense and Veterans Affairs facilities. It does not include entries that were removed or entered in error. Problem Status Onset Date Problem Type Date of Resolution Comments Source egd Active 009 Condition Aug 25, 2008 Entered By: YEE GAGNON Comment: Grade 4 esophagitis at GE junctionJul 2008 Entered By: YEE GAGNON Comment: Stricture of GE junction [facility] flex sig Inactive 999 Condition 06/09/2002 Jun 10, 2001 Entered By: YEE GAGNON Comment: dr cook [facility] Bilateral osteoarthritis of knees Active Condition [facility] Carotid artery stenosis Active Condition Apr 24, 2024 Entered By: TAMRA HINSON Comment: s/p left carotid endarterectomy [facility] Chronic obstructive lung disease (SNOMED CT 43044561) Active Condition [facility] Chronic Renal disease (ICD-9-CM 585.9) Active Condition [facility] Coronary Artery Disease * (ICD-9-CM 414.9) Active Condition [facility] Diffuse spasm of esophagus (SNOMED CT 08955721) Active Condition Dec 06, 2006 Entered By: YEE GAGNON Comment: s/p dilatation by Dr joey serrano - [facility] Esophageal stricture Active Condition [facility] Essential hypertension (SNOMED CT 58811998) Active Condition [facility] Family history of malignant neoplasm of prostate Active Condition Apr 26, 2001 Entered By: YEE GAGNON Comment: RADICAL PROSTATECTOMY AND ALSO LYMPH NODE DISSECTION [facility] Hyperlipidemia (SNOMED CT 39129205) Active Condition [facility] Iron deficiency anemia Active Condition [facility] Male erectile disorder Active Condition Apr 26, 2001 Entered By: YEE GAGNON Comment: PER LETTER BY UROLOGY DR HAYWARD-FEB 2001 Entered By: YEE GAGNON Comment: PT IS ON VIAGRAMar 2001 Entered By: YEE GAGNON Comment: S/O RETROPUBIC RADICAL PROSTATECTOMY [facility] Psoriasis * (ICD-9-CM 696.1) Active Condition [facility] Raynaud's phenomenon Active Condition [facility] Type 2 diabetes mellitus (SNOMED CT 23516950) Active Condition [facility] Coronary Artery Disease Inactive Condition 11/17/2002 May 07, 2002 Entered By: YEE GAGNON Comment: moderate ischemia in inf wall on nuclear stress-see cardio cSep 2002 Entered By: YEE GAGNON Comment: as per cardio stress test probably false +ve. [facility] Dysphagia Inactive Condition 11/17/2002 Trey 12, 2 001 Entered By: YEE GAGNON Comment: secondry to esophagitis [facility] Diagnosis: ICD-10-CM D50.9 Iron deficiency anemia, unspecified Active Diagnosis [facility] Diagnosis: ICD-10-CM Z46.1 Encounter for fitting and adjustment of hearing aid Active Diagnosis [facility] Diagnosis: ICD-10-CM N18.31 Chronic kidney disease, stage 3a Active Diagnosis [facility] Diagnosis: ICD-10-CM S92.302D Fx unsp metatarsal bone(s), l foot, subs for fx w routn heal Active Diagnosis [facility] Diagnosis: ICD-10-CM S92.325A Nondisp fx of second metatarsal bone, left foot, init Active Diagnosis [facility] Diagnosis: ICD-10-CM Z46.0 Encounter for fit/adjst of spectacles and contact lenses Active Diagnosis [facility] Diagnosis: ICD-10-CM 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, left eye, with actv chrdl neovas Active Diagnosis [facility] Diagnosis: ICD-10-CM H35.3211 Exdtve age-rel mclr degn, right eye, with actv chrdl neovas Active Diagnosis [facility] Diagnosis: ICD-10-CM E11.8 Type 2 diabetes mellitus with unspecified complications Active Diagnosis [facility] Diagnosis: ICD-10-CM E11.51 Type 2 diabetes w diabetic peripheral angiopath w/o gangrene Active Diagnosis [facility] Diagnosis: ICD-10-CM E11.9 Type 2 diabetes mellitus without complications Active Diagnosis [facility] Diagnosis: ICD-10-CM E11.59 Type 2 diabetes mellitus with oth circulatory complications Active Diagnosis [facility] Diagnosis: ICD-10-CM N18.32 Chronic kidney disease, stage 3b Active Diagnosis [facility] Medications Combined list of outpatient medications from Department of Defense and Veterans Affairs facilities.Medications provided include 1) outpatient medications from the last 15 months, and 2) patient-reported medications. Medication Details Route Status Patient Instructions Prescription Expires Prescription Number Last Dispense Date Ordering Provider Order Date Order Qty Source ALBUTEROL SO4 3MG/IPRATRO PIUM BR 0.5MG/3ML INHL,3ML INHALE 1 VIAL (3ML) IN NEBULIZE R EVERY 6 HOURS RESPIR ATORY (INHAL ATION) ACTIVE ARJUN GAGNON JAWED 2021 [facility] AMLODIPINE BESYLATE 5MG TAB TAKE ONE TABLET BY MOUTH ONCE DAILY ORAL ACTIVE ARJUN GAGNON JAWED 08/29/ 2023 [facility] ASCORBIC ACID 500MG TAB TAKE ONE TABLET BY MOUTH ONCE DAILY FOR VITAMIN/ NUTRITIO N SUPPLEME NT ORAL ACTIVE 01/01/2025 [id number] 5 FURCOLO,T RUIZ 2024 100 [facility] ASCORBIC ACID 500MG TAB TAKE ONE TABLET BY MOUTH ONCE DAILY FOR VITAMIN/ NUTRITIO N SUPPLEME NT ORAL DISCONT INUED 04/17/2024 [id number] SNOW STEVENS A 2023 100 [facility] ASPIRIN 81MG TAB,EC TAKE ONE TABLET BY MOUTH EVERY DAY ORAL ACTIVE ARJUN GAGNON JAWED 2008 [facility] ATORVASTATI N CA 80MG TAB TAKE ONE-HALF TABLET BY MOUTH QD ORAL ACTIVE RA COLBY LUBINYN 2022 [facility] BECLOMETHAS ONE DIPROPIONAT E 80MCG/ACTUA T (HFA) INHL,ORAL,1 0.6GM INHALE 2 PUFFS BY MOUTH TWICE DAILY RESPIR ATORY (INHAL ATION) ACTIVE ARJUN GAGNON JAWED 2021 [facility] CARBOXYMETH YLCELLULOSE NA 0.5% SOLN,OPH INSTILL 1 DROP INTO EACH EYE FOUR TIMES A DAY FOR DRY EYE OPHTHA LMIC ACTIVE 10/09/2024 [id number] GUILLEN,LAC EY J 2023 45 [facility] CARVEDILOL 25MG TAB TAKE ONE TABLET BY MOUTH TWICE DAILY ORAL ACTIVE FURCOLO,T RUIZ 2023 [facility] CLOTRIMAZOL E 1% SOLN,TOP APPLY 1 DROP TOPICALL Y ONCE DAILY FOR FUNGAL INFECTIO N. APPLY WHEN NAIL IS DRY (NOT AFTER SHOWER/B ATH). USE FOR AT LEAST 9-12 MONTHS. REGULAR NAIL CARE IS RECOMMEN DED TOPICA L 04/10/2024 [id number] 5 FELICITAS FINE D 2023 30 [facility] EMPAGLIFLOZ IN 10MG TAB TAKE ONE TABLET BY MOUTH ONCE DAILY FOR TYPE 2 DIABETES MELLITUS ORAL ACTIVE 01/01/2025 [id number] 5 FURCOLO,T RUIZ 2023 90 [facility] EMPAGLIFLOZ IN 10MG TAB TAKE ONE TABLET BY MOUTH ONCE DAILY FOR TYPE 2 DIABETES MELLITUS ORAL DISCONT INUED 04/24/2024 [id number] [facility] EMPAGLIFLOZ IN 10MG TAB TAKE ONE TABLET BY MOUTH ONCE DAILY ORAL DISCONT INUED 03/14/2024 [id number] [facility] 2023 30 [facility] FAMOTIDINE 40MG TAB TAKE ONE TABLET BY MOUTH ONCE DAILY FOR STOMACH ACID ORAL ACTIVE 01/01/2025 [id number] 5 FURCOLO,T RUIZ 2024 90 [facility] FAMOTIDINE 40MG TAB TAKE ONE TABLET BY MOUTH ONCE DAILY FOR STOMACH ACID ORAL DISCONT INUED 04/24/2024 [id number] 4 [facility] 2023 90 [facility] FERROUS GLUCONATE 324MG TAB TAKE TWO TABLETS BY MOUTH ONCE DAILY TO SUPPLEME NT IRON ORAL SUSPEND ED 04/24/2025 [id number] 5 SNOW STEVENS 2024 200 [facility] FERROUS GLUCONATE 324MG TAB TAKE TWO TABLETS BY MOUTH ONCE DAILY TO SUPPLEME NT IRON ORAL DISCONT INUED 04/17/2024 [id number] SNOW STEVENS 2023 200 [facility] FERROUS GLUCONATE 324MG TAB TAKE ONE TABLET BY MOUTH ONCE DAILY TO SUPPLEME NT IRON ORAL DISCONT INUED (EDIT) 01/04/2024 [id number] SNOW STEVENS 2022 100 [facility] HYDROPHILIC (EQV EUCERIN) CREAM,TOP APPLY A SMALL AMOUNT TOPICALL Y ONCE DAILY TO DRY, CRACKED SKIN ON FEET TOPICNissa L 04/10/2024 [id number] FELICITAS FINE 2023 454 [facility] INCONT LINER DEPEND GUARDS USE 1 PAD TOPICALL Y FIVE TIMES A DAY TOPICNissa L DISCONT INUED 01/23/2024 [id number] ARJUN GAGNON JAWED 2022 208 [facility] MAGNESIUM OXIDE 420MG TAB TAKE ONE TABLET BY MOUTH ONCE DAILY ORAL ACTIVE ARJUN GAGNON JAWED 2018 [facility] MULTIVIT/OP HTH AREDS2/LUTE IN/ZEAXANTH IN CAP/TAB TAKE 1 CAPSULE BY MOUTH TWICE DAILY FOR VITAMIN SUPPLEME NTATION IN THE MORNING AND EVENING, WITH FOOD ORAL ACTIVE 10/09/2024 [id number] 5 ITZEL GUILLEN J 2023 120 [facility] OLODATEROL 2.5MCG/TIOT ROPIUM 2.5MCG/ACTU AT INHL,ORAL,6 0D,4GM INHALE 2 PUFFS (1 DOSE) BY MOUTH ONCE DAILY RESPIR ATORY (INHAL ATION) ACTIVE ARJUN GAGNON JAWED 2018 [facility] PANTOPRAZOL E NA 40MG TAB,EC TAKE ONE TABLET BY MOUTH TWICE DAILY FOR EXCESSIV E PRODUCTI ON OF STOMACH ACID ORAL ACTIVE 12/21/2024 [id number] 5 FURCOLO,T RUIZ 2024 180 [facility] TADALAFIL 20MG TAB TAKE ONE TABLET BY MOUTH NEEDED ORAL ACTIVE 10/03/2024 [id number] 5 FURCOLO,T RUIZ 2023 4 [facility] TADALAFIL 20MG TAB TAKE ONE TABLET BY MOUTH NEEDED ORAL DISCONT INUED 07/19/2023 [id number] DARVIN ORTEGA 2022 4 [facility] Allergies, Adverse Reactions, Alerts Combined list of allergies from Department of Defense and Veterans Affairs facilities. It does not include entries that were removed or entered in error. Substance Category Reaction Severity Reaction type Status Date Reported Comments Source VARDENAFIL Propensity to adverse reactions to drug (finding) Headache, Diarrhea active 7 [facility] Immunizations Combined list of available immunizations from the Department of Defense and Veterans Affairs facilities. Immunization Series Date Given Administered By Site Reaction Lot Number CVX Code Drug Trust Administrator Status Comments Source INFLUENZA, UNSPECIFIED FORMULATION 2023 88 complet ed [facility] INFLUENZA, UNSPECIFIED FORMULATION 2023 88 complet ed [facility] INFLUENZA, UNSPECIFIED FORMULATION 2021 88 complet ed [facility] COVID-19 (PFIZER), MRNA, LNP-S, PF, 30 MCG/0.3 ML DOSE 3 2020 208 complet ed [facility] INFLUENZA, UNSPECIFIED FORMULATION 2020 88 complet ed [facility] COVID-19 (MODERNA), MRNA, LNP-S, PF, 100 MCG/0.5 ML DOSE 2 2020 207 complet ed MOD; [id number]; 1 [facility] COVID-19 (MODERNA), MRNA, LNP-S, PF, 100 MCG/0.5 ML DOSE 1 2020 207 complet ed MOD; [id number]; 1 [facility] ZOSTER RECOMBINANT 2 2020 187 complet ed [facility] INFLUENZA, INJECTABLE, QUADRIVALENT, PRESERVATIVE FREE 2019 150 complet ed [facility] ZOSTER RECOMBINANT 1 2019 187 complet ed [facility] INFLUENZA, TRIVALENT, ADJUVANTED 2018 168 complet ed Site: Right Deltoid [facility] PNEUMOCOCCAL POLYSACCHARID E PPV23 2018 33 complet ed [facility] TD (ADULT), 2 LF TETANUS TOXOID, PRESERVATIVE FREE, ADSORBED 2018 09 complet ed Site: Right Deltoid [facility] INFLUENZA, SEASONAL, INJECTABLE 2017 141 complet ed [facility] INFLUENZA, SEASONAL, INJECTABLE 2016 141 complet ed [facility] FLU,3 YRS (HISTORICAL) 2015 88 complet ed had at outside pcp [facility] FLU,3 YRS (HISTORICAL) 2014 88 complet ed outside provider [facility] PNEUMOCOCCAL CONJUGATE PCV 13 2014 133 complet ed [facility] FLU,3 YRS (HISTORICAL) 2012 88 complet ed Site: Left Deltoid [facility] ZOSTER LIVE 2012 121 complet ed [facility] FLU,3 YRS (HISTORICAL) 2011 88 complet ed [facility] FLU,3 YRS (HISTORICAL) 2010 88 complet ed Site: Right Deltoid [facility] PNEUMOCOCCAL, UNSPECIFIED FORMULATION 2010 109 complet ed [facility] FLU,3 YRS (HISTORICAL) 2009 88 complet ed [facility] FLU,3 YRS (HISTORICAL) 2008 88 complet ed Site: Right Deltoid [facility] FLU,3 YRS (HISTORICAL) 2007 88 complet ed Site: Right Deltoid [facility] FLU,3 YRS (HISTORICAL) 2006 88 complet ed Site: Left Deltoid [facility] TDAP 2006 115 complet ed [facility] FLU,3 YRS (HISTORICAL) 2005 88 complet ed [facility] FLU,3 YRS (HISTORICAL) 2004 SAVANNA ISAACS 88 complet ed [facility] PNEUMOCOCCAL, UNSPECIFIED FORMULATION 2004 SAVANNA ISAACS 109 complet ed [facility] FLU,3 YRS (HISTORICAL) 2003 RAYMOND FLORES 88 complet ed [facility] FLU,3 YRS (HISTORICAL) 2002 LENA BELTRE 88 complet ed [facility] FLU,3 YRS (HISTORICAL) 2001 TOBY CHO T 88 complet ed [facility] FLU,3 YRS (HISTORICAL) 2000 RAYMOND FLORES 88 complet ed [facility] Results Combined list of recent chemistry, hematology and other laboratory results from Department of Defense and Veterans Affairs, ranging from 15 months to all on record, depending upon the facility. Order Name Results Value Reference Range Date Interpretation Specimen Comments Source HEMOGLOBI N A1C PANEL HEMOGLOBIN A1C/HEMOGL OBIN.TOTAL IN BLOOD BY HPLC 6.1 4.0 - 5.6 04/23 H Specimen Type: BLOOD Comment: Values obtained from A1C measurement s can vary. For atypical A1C assays, a reported value of 7.0 could actually be between 6.72 and 7.28 if measured by a reference method. A reported value of 9.0 could actually be between 8.73 and 9.27. Ref: http://www. ngsp.org/[place] Pdata.asp Ordering Provider: LEAH HINSON Report Released Date/Time: Oct 29, 2023 10:41 AM Reporting Lab: [facility] [place] [facility] [address] [facility] [address] Performing Lab: [facility] [place] [facility] [address] [facility] [address] [facility] LIPID PANEL FASTING CHOLESTERO L [MASS/VOLU ME] IN SERUM OR PLASMA 124 mg/dL 04/23 Specimen Type: SERUM No comment entered. Ordering Provider: LEAH HINSON Report Released Date/Time: Oct 29, 2023 10:41 AM Reporting Lab: [facility] [place] [facility] [address] [facility] [address] Performing Lab: [facility] [address] [facility] [address] [facility] LIPID PANEL FASTING TRIGLYCERI DE [MASS/VOLU ME] IN SERUM OR PLASMA 307 mg/dL 0 - 150 04/23 H Specimen Type: SERUM No comment entered. Ordering Provider: LEAH HINSON Report Released Date/Time: Oct 29, 2023 10:41 AM Reporting Lab: [facility] [address] Performing Lab: [facility] [address] [facility] LIPID PANEL FASTING CHOLESTERO L IN LDL [MASS/VOLU ME] IN SERUM OR PLASMA BY CALCHEATHER N Reflex to dLDLmg/ dL 0 - 129 04/23 Specimen Type: SERUM No comment entered. Ordering Provider: LEAH HINSON Report Released Date/Time: Oct 29, 2023 10:41 AM Reporting Lab: [facility] [place] [place] [facility] [address] [facility] [address] Performing Lab: [facility] [place] [facility] [address] [facility] [address] [facility] [place] LIPID PANEL FASTING CHOLESTERO L.TOTAL/CH OLESTEROL IN HDL [MASS RATIO] IN SERUM OR PLASMA 3.8 04/23 Specimen Type: SERUM No comment entered. Ordering Provider: LEAH HINSON Report Released Date/Time: Oct 29, 2023 10:41 AM Reporting Lab: [facility] [place] [address] [address] Performing Lab: [facility] [place] [facility] [address] [facility] [address] [facility] [place] [facility] LIPID PANEL FASTING CHOLESTERO L IN HDL [MASS/VOLU ME] IN SERUM OR PLASMA 33 mg/dL 40 - 60 04/23 L Specimen Type: SERUM No comment entered. Ordering Provider: LEAH HINSON Report Released Date/Time: Oct 29, 2023 10:41 AM Reporting Lab: [facility] [place] [facility] [address] [facility] [address] Performing Lab: [facility] [place] [facility] [address] [facility] [address] [facility] [place] [facility] LIPID PANEL FASTING CHOLESTERO L IN LDL [MASS/VOLU ME] IN SERUM OR PLASMA BY DIRECT ASSAY 51 mg/dL 04/23 Specimen Type: SERUM No comment entered. Ordering Provider: LEAH HINSON Report Released Date/Time: Oct 29, 2023 10:41 AM Reporting Lab: [facility] [place] [facility] [address] [facility] [address] Performing Lab: [facility] [place] [address] [address] [facility] [place] [facility] MICROALBU MIN CREATININ E RATIO PANEL MICROALBUM IN/CREATIN INE [MASS RATIO] IN URINE 186.3 mg/g 0 - 29.9 02/13 H Specimen Type: URINE No comment entered. Ordering Provider: EBONY STEVENS Report Released Date/Time: Aug 15, 2023 09:18 AM Reporting Lab: [facility] [place] [facility] [address] [facility] [address] Performing Lab: [facility] [place] [address] [address] [facility] [place] [facility] MICROALBU MIN CREATININ E RATIO PANEL MICROALBUM IN [MASS/VOLU ME] IN URINE 5.5 mg/dL 02/13 Specimen Type: URINE No comment entered. Ordering Provider: EBONY STEVENS Report Released Date/Time: Aug 15, 2023 09:18 AM Reporting Lab: [facility] [address] [facility] [address] Performing Lab: [facility] [place] [facility] [address] [facility] [address] [facility] [place] [facility] MICROALBU MIN CREATININ E RATIO PANEL CREATININE [MASS/VOLU ME] IN URINE 29.53 mg/dL 02/13 Specimen Type: URINE No comment entered. Ordering Provider: EBONY STEVENS Report Released Date/Time: Aug 15, 2023 09:18 AM Reporting Lab: [facility] [place] [facility] [address] [facility] [address] Performing Lab: [facility] [place] [facility] [address] [facility] [address] [facility] [place] [facility] FERRITIN FERRITIN [MASS/VOLU ME] IN SERUM OR PLASMA 81 ng/mL 20 - 300 02/13 Specimen Type: SERUM No comment entered. Ordering Provider: EBONY STEVENS Report Released Date/Time: Aug 15, 2023 09:18 AM Reporting Lab: [facility] [place] [facility] [address] [facility] [address] Performing Lab: [facility] [place] [facility] [address] [facility] [address] [facility] [place] [facility] IRON & TIBC PANEL IRON BINDING CAPACITY [MASS/VOLU ME] IN SERUM OR PLASMA 312 ug/dL 204 - 475 02/13 Specimen Type: SERUM No comment entered. Ordering Provider: EBONY STEVENS Report Released Date/Time: Aug 15, 2023 09:18 AM Reporting Lab: [facility] [place] [facility] [address] [facility] [address] Performing Lab: [facility] [place] [facility] [address] [facility] [address] [facility] [place] [facility] IRON & TIBC PANEL IRON [MASS/VOLU ME] IN SERUM OR PLASMA 74 ug/dL 40 - 160 02/13 Specimen Type: SERUM No comment entered. Ordering Provider: EBONY STEVENS Report Released Date/Time: Aug 15, 2023 09:18 AM Reporting Lab: [facility] [place] [facility] [address] [facility] [address] Performing Lab: [facility] [place] [facility] [address] [facility] [address] [facility] [place] [facility] IRON & TIBC PANEL IRON/IRON BINDING CAPACITY.T OTAL [MASS RATIO] IN SERUM OR PLASMA 23.8 20.0 - 50.0 02/13 Specimen Type: SERUM No comment entered. Ordering Provider: EBONY STEVENS Report Released Date/Time: Aug 15, 2023 09:18 AM Reporting Lab: [facility] [place] [facility] [address] [facility] [address] Performing Lab: [facility] [place] [facility] [address] [facility] [address] [facility] [place] [facility] IRON & TIBC PANEL TRANSFERRI N [MASS/VOLU ME] IN SERUM OR PLASMA 236 mg/dL 200 - 360 02/13 Specimen Type: SERUM No comment entered. Ordering Provider: EBONY STEVENS Report Released Date/Time: Aug 15, 2023 09:18 AM Reporting Lab: [facility] [place] [facility] [address] [facility] [address] Performing Lab: [facility] [place] [facility] [address] [facility] [address] [facility] [place] [facility] CBC LEUKOCYTES [#/VOLUME] IN BLOOD BY AUTOMATED COUNT 7.79 10*3/uL 4.50 - 11.00 02/13 Specimen Type: BLOOD No comment entered. Ordering Provider: EBONY STEVENS Report Released Date/Time: Aug 15, 2023 09:18 AM Reporting Lab: [facility] [place] [facility] [address] [facility] [address] Performing Lab: [facility] [place] [facility] [address] [facility] [address] [facility] [place] [facility] CBC ERYTHROCYT ES [#/VOLUME] IN BLOOD BY AUTOMATED COUNT 4.54 10*6/uL 4.23 - 5.66 02/13 Specimen Type: BLOOD No comment entered. Ordering Provider: EBONY STEVENS Report Released Date/Time: Aug 15, 2023 09:18 AM Reporting Lab: [facility] [place] [facility] [address] [facility] [address] Performing Lab: [facility] [place] [facility] [address] [facility] [address] [facility] [place] [facility] CBC HEMOGLOBIN [MASS/VOLU ME] IN BLOOD 13.8 g/dL 12.8 - 17 02/13 Specimen Type: BLOOD No comment entered. Ordering Provider: EBONY STEVENS Report Released Date/Time: Aug 15, 2023 09:18 AM Reporting Lab: [facility] [place] [facility] [address] [facility] [address] Performing Lab: [facility] [place] [address] [address] [facility] [place] [facility] CBC HEMATOCRIT [VOLUME FRACTION] OF BLOOD BY AUTOMATED COUNT 41.9 39.2 - 50.4 02/13 Specimen Type: BLOOD No comment entered. Ordering Provider: EBONY STEVENS Report Released Date/Time: Aug 15, 2023 09:18 AM Reporting Lab: [facility] [place] [facility] [address] [facility] [address] Performing Lab: [facility] [address] [address] [facility] CBC MCV [ENTITIC VOLUME] BY AUTOMATED COUNT 92.3 fL 82 - 99 02/13 Specimen Type: BLOOD No comment entered. Ordering Provider: EBONY STEVENS Report Released Date/Time: Aug 15, 2023 09:18 AM Reporting Lab: [facility] [address] [facility] [address] Performing Lab: [facility] [address] [facility] [address] [facility] CBC MCHC [MASS/VOLU ME] BY AUTOMATED COUNT 32.9 g/dL 30.8 - 35.1 02/13 Specimen Type: BLOOD No comment entered. Ordering Provider: EBONY STEVENS Report Released Date/Time: Aug 15, 2023 09:18 AM Reporting Lab: [facility] [address] [facility] [address] Performing Lab: [facility] [address] [facility] [address] [facility] CBC PLATELETS [#/VOLUME] IN BLOOD BY AUTOMATED COUNT 177 10*3/uL 140 - 360 02/13 Specimen Type: BLOOD No comment entered. Ordering Provider: EBONY STEVENS Report Released Date/Time: Aug 15, 2023 09:18 AM Reporting Lab: [facility] [address] [facility] [address] Performing Lab: [facility] [address] [address] [facility] CBC ERYTHROCYT E DISTRIBUTI ON WIDTH [RATIO] BY AUTOMATED COUNT 14.9 12.0 - 16.0 02/13 Specimen Type: BLOOD No comment entered. Ordering Provider: EBONY STEVENS Report Released Date/Time: Aug 15, 2023 09:18 AM Reporting Lab: [facility] [address] [facility] [address] Performing Lab: [facility] [facility] [address] [facility] [address] [facility] CBC MCH [ENTITIC MASS] BY AUTOMATED COUNT 30.4 pg 26.2 - 32.6 02/13 Specimen Type: BLOOD No comment entered. Ordering Provider: EBONY STEVENS Report Released Date/Time: Aug 15, 2023 09:18 AM Reporting Lab: [facility] [address] [facility] [address] Performing Lab: [facility] [address] [address] [facility] BASIC METABOLIC PANEL (non-fast ing) UREA NITROGEN [MASS/VOLU ME] IN SERUM OR PLASMA 21 mg/dL 7 - 25 02/13 Specimen Type: SERUM No comment entered. Ordering Provider: EBONY STEVENS Report Released Date/Time: Aug 15, 2023 09:18 AM Reporting Lab: [address] [address] Performing Lab: [address] [address] [facility] BASIC METABOLIC PANEL (non-fast ing) GLUCOSE [MASS/VOLU ME] IN SERUM OR PLASMA 123 mg/dL 65 - 100 02/13 H Specimen Type: SERUM No comment entered. Ordering Provider: EBONY STEVENS Report Released Date/Time: Aug 15, 2023 09:18 AM Reporting Lab: [address] [address] Performing Lab: [address] [address] [facility] BASIC METABOLIC PANEL (non-fast ing) SODIUM [MOLES/VOL UME] IN SERUM OR PLASMA 141 mmol/L 135 - 145 02/13 Specimen Type: SERUM No comment entered. Ordering Provider: EBONY STEVENS Report Released Date/Time: Aug 15, 2023 09:18 AM Reporting Lab: [address] [address] Performing Lab: [address] [address] [facility] BASIC METABOLIC PANEL (non-fast ing) POTASSIUM [MOLES/VOL UME] IN SERUM OR PLASMA 4.1 mmol/L 3.5 - 5.0 02/13 Specimen Type: SERUM No comment entered. Ordering Provider: EBONY STEVENS Report Released Date/Time: Aug 15, 2023 09:18 AM Reporting Lab: [address] [address] Performing Lab: [facility]ITALR[facility]OSPITALTRN [facility]USEMA[facility] [address] [facility] [address] [facility] BASIC METABOLIC PANEL (non-fast ing) CHLORIDE [MOLES/VOL UME] IN SERUM OR PLASMA 105 mmol/L 100 - 110 02/13 Specimen Type: SERUM No comment entered. Ordering Provider: EBONY STEVENS Report Released Date/Time: Aug 15, 2023 09:18 AM Reporting Lab: [facility]ITALRL TRN [facility]PITALUSEMAIMONID[facility] [address] [facility] [address] Performing Lab: [facility]ITALRSELECT SPECIALTY HOSPITALN [address] [address] [facility] BASIC METABOLIC PANEL (non-fast ing) CARBON DIOXIDE, TOTAL [MOLES/VOL UME] IN SERUM OR PLASMA 26 meq/L 20 - 30 02/13 Specimen Type: SERUM No comment entered. Ordering Provider: EBONY STEVENS Report Released Date/Time: Aug 15, 2023 09:18 AM Reporting Lab: [facility]ITALRSELECT [facility] HOSPITALN [address] [address] Performing Lab: [facility]ITALRSELECT SPECIALTY HOSPITALN [facility] [address] [facility] [address] [facility] BASIC METABOLIC PANEL (non-fast ing) CREATININE [MASS/VOLU ME] IN SERUM OR PLASMA 1.39 mg/dL 0.50 - 1.40 02/13 Specimen Type: SERUM No comment entered. Ordering Provider: EBONY STEVENS Report Released Date/Time: Aug 15, 2023 09:18 AM Reporting Lab: [facility]ITALRBRYCE HOSPITALTRN [facility]OSPITALUSE[address] [address] Performing Lab: [facility]PITALRSELECT SPECIALTY HOSPITALN [facility]ITALUSE[address] [address] [facility] BASIC METABOLIC PANEL (non-fast ing) GLOMERULAR FILTRATION RATE/1.73 SQ M.PREDICTE D [VOLUME RATE/AREA] IN SERUM, PLASMA OR BLOOD BY CREATININE -BASED FORMULA (CKD-EPI 2020) 53 mL/min 60 1226 /2024 L Specimen Type: SERUM No comment entered. Ordering Provider: EBONY STEVENS Report Released Date/Time: Aug 15, 2023 09:18 AM Reporting Lab: [facility] [address] [address] Performing Lab: [facility] [address] [address] [facility] HEMOGLOBI N A1C PANEL HEMOGLOBIN A1C/HEMOGL OBIN.TOTAL IN BLOOD BY HPLC 6.0 4.0 - 5.6 10/18 H Specimen Type: BLOOD Comment: Values obtained from A1C measurement s can vary. For atypical A1C assays, a reported value of 7.0 could actually be between 6.72 and 7.28 if measured by a reference method. A reported value of 9.0 could actually be between 8.73 and 9.27. Ref: http://www. ngsp.org/[place] Pdata.asp Ordering Provider: LEAH HINSON Report Released Date/Time: Oct 09, 2023 12:53 PM Reporting Lab: [address] [address] Performing Lab: [address] [address] [facility] LIPID PANEL, NON FASTING CHOLESTERO L [MASS/VOLU ME] IN SERUM OR PLASMA 118 mg/dL 10/18 Specimen Type: SERUM No comment entered. Ordering Provider: LEAH HINSON Report Released Date/Time: Oct 09, 2023 12:53 PM Reporting Lab: [address] [address] Performing Lab: [address] [address] [facility] LIPID PANEL, NON FASTING TRIGLYCERI DE [MASS/VOLU ME] IN SERUM OR PLASMA 237 mg/dL 0 - 150 10/18 H Specimen Type: SERUM No comment entered. Ordering Provider: LEAH HINSON Report Released Date/Time: Oct 09, 2023 12:53 PM Reporting Lab: [facility] [facility] [address] [facility] [address] Performing Lab: [facility] [place] [facility] [address] [facility] [address] [facility] LIPID PANEL, NON FASTING CHOLESTERO L IN LDL [MASS/VOLU ME] IN SERUM OR PLASMA BY CALCULAPIPE N 40 mg/dL 0 - 129 10/18 Specimen Type: SERUM No comment entered. Ordering Provider: LEAH HINSON Report Released Date/Time: Oct 09, 2023 12:53 PM Reporting Lab: [facility] [facility] [address] [facility] [address] Performing Lab: [facility] [place] [facility] [address] [facility] [address] [facility]ITALRL [facility] [facility] LIPID PANEL, NON FASTING CHOLESTERO L.TOTAL/CH OLESTEROL IN HDL [MASS RATIO] IN SERUM OR PLASMA 3.8 10/18 Specimen Type: SERUM No comment entered. Ordering Provider: LEAH HINSON Report Released Date/Time: Oct 09, 2023 12:53 PM Reporting Lab: [facility] [place] [facility] [address] [facility] [address] Performing Lab: [facility] [place] [facility] [address] [facility] [address] [facility] [place] [facility] LIPID PANEL, NON FASTING CHOLESTERO L IN HDL [MASS/VOLU ME] IN SERUM OR PLASMA 31 mg/dL 40 - 60 10/18 L Specimen Type: SERUM No comment entered. Ordering Provider: LEAH HINSON Report Released Date/Time: Oct 09, 2023 12:53 PM Reporting Lab: [facility] [place] [facility] [address] [facility] [address] Performing Lab: [facility] [place] [facility] [address] [facility] [address] [facility] [place] [facility] CALCIUM CALCIUM [MASS/VOLU ME] IN SERUM OR PLASMA 8.6 mg/dL 8.5 - 10.2 08/06 Specimen Type: SERUM No comment entered. Ordering Provider: EBONY STEVENS Report Released Date/Time: Apr 17, 2023 01:00 PM Reporting Lab: [facility] [address] [facility] [address] Performing Lab: [facility] [address] [facility] [address] [facility] Vital Signs Combined list of inpatient and outpatient Vital Signs from Department of Defense and Veterans Affairs, ranging from 12 months to all on record, depending upon the facility. Vital Sign Value Date Comments Source SYSTOLIC BLOOD PRESSURE 137 04/25/19 25 10:08:59 [facility] DIASTOLIC BLOOD PRESSURE 74 025 10:08:59 [facility] PULSE OXIMETRY 98 04/24/2024 10:08:59 [facility] WEIGHT 173 04/24/2024 10:08:59 [facility] BMI 25 kg/m2 04/24/2024 10:08:59 [facility] PAIN 6 04/24/2024 10:08:59 [facility] TEMPERATURE 98.3 04/24/2024 10:08:59 [facility] PULSE 89 04/24/2024 10:08:59 [facility] RESPIRATION 16 04/24/2024 10:08:59 [facility] SYSTOLIC BLOOD PRESSURE 144 02/25/19 25 09:02:45 [facility] DIASTOLIC BLOOD PRESSURE 71 025 09:02:45 [facility] PULSE OXIMETRY 97 02/26/2024 09:02:45 [facility] WEIGHT 170 02/26/2024 09:02:45 [facility] BMI 24 kg/m2 02/26/2024 09:02:45 [facility] PAIN 0 02/26/2024 09:02:45 [facility] TEMPERATURE 97.3 02/26/2024 09:02:45 [facility] PULSE 103 02/26/2024 09:02:45 [facility] RESPIRATION 20 02/26/2024 09:02:45 [facility] SYSTOLIC BLOOD PRESSURE 138 01/11/20 24 07:58:42 [facility] DIASTOLIC BLOOD PRESSURE 92 024 07:58:42 [facility] PULSE OXIMETRY 96 01/11/2024 07:58:42 [facility] PAIN 3 01/11/2024 07:58:42 [facility] TEMPERATURE 97.3 01/11/2024 07:58:42 [facility] PULSE 96 01/11/2024 07:58:42 [facility] SYSTOLIC BLOOD PRESSURE 142 10/29/19 24 09:59:00 [facility] DIASTOLIC BLOOD PRESSURE 80 024 09:59:00 [facility] PULSE OXIMETRY 97 10/29/2023 09:59:00 [facility] WEIGHT 170 10/29/2023 09:59:00 [facility] BMI 24 kg/m2 10/29/2023 09:59:00 [facility] PAIN 0 10/29/2023 09:59:00 [facility] TEMPERATURE 97.4 10/29/2023 09:59:00 [facility] PULSE 83 10/29/2023 09:59:00 [facility] RESPIRATION 16 10/29/2023 09:59:00 [facility] SYSTOLIC BLOOD PRESSURE 149 08/15/19 24 09:01:03 [facility] DIASTOLIC BLOOD PRESSURE 72 024 09:01:03 [facility] PULSE OXIMETRY 94 08/15/2023 09:01:03 [facility] WEIGHT 168 08/15/2023 09:01:03 [facility] BMI 24 kg/m2 08/15/2023 09:01:03 [facility] PAIN 0 08/15/2023 09:01:03 [facility] TEMPERATURE 97.2 08/15/2023 09:01:03 [facility] PULSE 86 08/15/2023 09:01:03 [facility] RESPIRATION 16 08/15/2023 09:01:03 [facility] Encounters Combined list of: 1) Encounters from Department of Veterans Affairs facilities going backup to the last 18 months, not all VA inpatient encounters are included; 2) Encounters from the Department of Defense facilities going backup to 280 months. Location Location Details Encounter Type Encounter Number Reason For Visit Attending Provider ADM Date DC Date Status Disposition Source [facility] Out[facility] Encounter [id number] 11/14 [facility]counter [id number] 11/30 [facility] Out[facility] Encounter [id number] 01/02 [facility] OFFICE O/P NEW MOD 45-59 MIN [id number] Diagnos is: ICD-10- CM N18.32 Chronic kidney disease , stage 3b Sridhar STEVENS 01/03 [facility] Encounter [id number] 01/16 [facility] Encounter [id number] 01/22 [facility]counter [id number] 02/23 [facility]counter [id number] 03/12 [facility] Encounter [id number] 03/19 [facility] En[facility] [id number] 03/27 [facility] OFFICE O/P EST LOW 20 MIN [id number] Diagnos is: ICD-10- CM 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 complic atGIORGI Mccarty 04/04 [facility] En[facility] [id number] 04/10 [facility] [id number] 04/13 [facility] Encounter [id number] 04/16 [facility] OFFICE O/P EST MOD 30 MIN [id number] Diagnos is: ICD-10- CM N18.31 Chronic kidney disease , stage 3a STEVENSSridhar REESE Azar 04/17 [facility] En[facility] [id number] 04/18 [facility] Out[facility] Encounter [id number] 04/23 [facility] OFFICE O/P EST MOD 30 MIN [id number] Diagnos is: ICD-10- CM E11.9 Type 2 diabete s mellitu s without complic ations CLEMENTINE GAGNON MMED JAWED 04/23 [facility] Encounter [id number] 06/27 [facility] Out[facility] Encounter [id number] 07/11 [facility] Out[facility] Encounter [id number] 07/29 [facility] OFFICE O/P EST LOW 20 MIN [id number] Diagnos is: ICD-10- CM E11.51 Type 2 diabete 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 th w/o GIORGI Connelly D 08/01 [facility] Encounter [id number] 08/06 [facility] Outpatient Encounter [id number] GIORGI FINE D 08/09 [facility] OFFICE O/P EST MOD 30 MIN [id number] RODNEYSridhar REESE A 08/14 [facility] DIABETIC CUSTOM MOLDED SHOE [id number] Diagnos is: ICD-10- CM E11.8 Type 2 diabete s mellitu s with unspeci fied complic ations FRIEDA MARES TOBY 08/14 [facility] Outpatient Encounter [id number] Sridhar STEVENS A 08/14 [facility] Outpatient Encounter [id number] GIORGI FINE D 08/26 [facility] DIABETIC CUSTOM MOLDED SHOE [id number] Diagnos is: ICD-10- CM E11.8 Type 2 diabete s mellitu s with unspeci fied complic ations FRIEDA MARES TT TOBY 09/04 [facility] Outpatient Encounter [id number] 10/02 [facility] DETERMINE REFRACTIVE STATE [id number] Diagnos is: ICD-10- CM 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, right eye, with actv chrdl neovas GUILLEN,LACE Y J 10/08 [facility] CPTR OPHTH DX IMG POST SEGMT [id number] Diagnos is: ICD-10- CM H35.322 1 Exdtve age-rel mclr degn, left eye, with actv chrdl neovas GUILLEN,LACE Y J 10/08 [facility] FIT SPECTACLES BIFOCAL [id number] Diagnos is: ICD-10- CM Z46.0 Encount er for fit/adj st of spectac les and contact lenses GUILLEN,LACE Y J 10/08 [facility] Out[facility] Encounter [id number] 10/10 [facility] Out[facility] Encounter [id number] 10/16 [facility] Out[facility] Encounter [id number] 1.10/18 [facility] Out[facility] Encounter [id number] 10/20 [facility] OFFICE O/P EST MOD 30 MIN [id number] Diagnos is: ICD-10- CM D50.9 Iron deficie ncy anemia, unspeci fied FURCOLO,TI NA 10/28 [facility] Out[facility] Encounter [id number] 1.10/28 [facility] Out[facility] Encounter [id number] 11/11 [facility] Out[facility] Encounter [id number] 11/28 [facility] Out[facility] Encounter [id number] 12/31 [facility] Out[facility] Encounter [id number] 01/06 [facility] OFFICE O/P EST MOD 30 MIN [id number] Diagnos is: ICD-10- CM S92.325 A Nondisp fx of second metatar gentry bone, left foot, init GIORGI FINE D 01/10 [facility] OFFICE O/P EST LOW 20 MIN [id number] Diagnos is: ICD-10- CM S92.302 D Fx unsp metatar gentry bone(s) , l foot, subs for fx w routn heal GIORGI FINE RLBOBY D 01/30 [facility] OFFICE O/P EST MOD 30 MIN [id number] Diagnos is: ICD-10- CM N18.31 Chronic kidney disease , stage 3a Sridhar STEVENS 02/25 [facility] Out[facility] Encounter [id number] 02/27 [facility] Outpatient [facility]counter [id number] 03/18 [facility] Outpatient [facility]counter [id number] [facility] [place] HEARING A[facility] REPAIR/MOD IFYING [id number] Diagnos is: ICD-10- CM Z46.1 Encount er for fitting and adjustm ent of hearing aid RIBJOSEJOSE I 04/04 [place] [facility] Outpatient Encounter [id number] [facility] Outpatient [facility]counter [id number] [facility] OFFICE O/P EST MOD 30 MIN [id number] Diagnos is: ICD-10- CM D50.9 Iron deficie ncy anemia, unspeci fied FURCOLO,TI NA 04/24 [facility] Social History Combined list of available smoking, tobacco, and other social history from Department of Defense and Veterans Affairs facilities. Social History Type Response Date Comment Source Tobacco smoking status [facility] VA-TOBACCO USE FORMER CIGARETTES 04/24/2024 [facility] History of tobacco use VA-TOBACCO NEVER USED OTHER TYPE 04/24/2024 [facility] History of tobacco use VA-TOBACCO FORMER USER 04/24/2023 [facility] History of tobacco use VA-TOBACCO FORMER USER 03/22/2022 [facility] [place] [facility] History of tobacco use VA-TOBACCO NEVER USED 10/21/2020 [facility] History of tobacco use VA-TOBACCO QUIT 15 YRS OR MORE 11/04/2019 [facility] [place] [facility] History of tobacco use QUIT TOBACCO USE > 7 YEARS AGO 11/05/2017 [facility] History of tobacco use QUIT TOBACCO USE > 7 YEARS AGO 06/28/2016 [facility] History of tobacco use LIFETIME NON-TOBACCO USER 03/15/2015 quit cigs. 1998 [facility] History [facility] tobacco use HISTORY OF SMOKING 11[facility]14/2004 [facility] History of tobacco use HISTORY OF SMOKING 05/18/2003 quit August 1998 [facility] History of tobacco use HISTORY OF SMOKING 06/09/2002 quit 99. [facility] History of tobacco use HISTORY OF SMOKING 06/10/2001 quit 1998 [facility] History of tobacco use HISTORY OF SMOKING 06/08/2000 quit 2yrs ago [facility] Plan of Care List of future care activities from Department of [facility] Affairs facilities. Additional future care activities may be listed in the Assessment and Plan section. Date/Time Care Activity Care Activity Detail [facility] 05/05/2024 AMBULATORY - REHAB MEDICINE AMBULATORY - REHAB MEDICINE [facility] 05/06/2024 AMBULATORY - MEDIC[facility]/23[facility]24 [facility]UL[facility] - MEDIC[facility] 08/27/2024 AMBULATORY - MEDICINE [facility] 04/24/2024 Consult Order PHYSICAL THERAPY /SPOPC OUTPT Cons Triple Valve [facility]
--- OUTSIDE RECORDS SUMMARY | 2024-05-05 07:17 | XMS_ITS | Data Portability ---
Author Organization [place] - [facility], [facility] Address [address] [place] [address] Care Team Providers Care Structures Assembler Name Role Phone EMMANUEL COPELAND Primary Care Provider [phone] Assessment Encounter Date Assessment Date Assessment LastModified by Organization Details LastModified Time 07/26/2023 07/26/2023 I am seeing the patient today under the supervision of Dr. Rivera who was available but who did not see the patient. Patient comes to the office with known Left shoulder impingement syndrome. The patient has done well with conservative management for their shoulder pain. Has had increasing discomfort over the past several weeks without injury. Pain is generalized about the shoulder. Off and on discomfort is noted at night. PFMSH and ROS has been reviewed, updated, and signed by me and is located in the patient's chart. PHYSICAL FINDINGS: The patient is well appearing, in no apparent distress, alert and oriented to person, place and time. Gait is symmetric. No significant swelling, warmth or erythema about either shoulder. There is mild tenderness to palpation about the shoulder and AC joint. Active range of motion of the shoulder is near full with mild to moderate pain through mid range manipulations. 4/5 strength of the shoulder, but the rotator cuff seems to fire well. Good stability of the shoulder. Peripheral, vascular, lymphatic examination, skin, neurologic coordination, reflexes, sensation are within normal limits. ASSESSMENT: Impingement SyndromeLeft shoulder. PLAN: The patient has done well with conservative management in regards to the Left shoulder. We discussed the role of medications, physical therapy, injections, and potential surgical interventions depending on conservative outcome Continued conservative management recommended. Along with cortisone injection today. Please see procedure note. Patient will follow up as directed. [email or web address] Not available 07/26/2023 13:09:06 10/24/2023 10/24/2023 I am seeing the patient today under the supervision of Dr Rivera who was available but who did not see the patient. [email or web address] Not available 10/24/2023 08:54:50 01/23/2024 01/23/2024 I am seeing the patient today under the supervision of Dr Rivera who was available but who did not see the patient. [email or web address] Not available 01/23/2024 08:52:26 04/23/2024 04/23/2024 I am seeing the patient today under the supervision of Dr. Rivera who was available but who did not see the patient. Patient comes to the office with known Left shoulder impingement syndrome. The patient has done well with conservative management for their shoulder pain. Has had increasing discomfort over the past several weeks without injury. Pain is generalized about the shoulder. Off and on discomfort is noted at night. PFMSH and ROS has been reviewed, updated, and signed by me and is located in the patient's chart. PHYSICAL FINDINGS: The patient is well appearing, in no apparent distress, alert and oriented to person, place and time. Gait is symmetric. No significant swelling, warmth or erythema about either shoulder. There is mild tenderness to palpation about the shoulder and AC joint. Active range of motion of the shoulder is near full with mild to moderate pain through mid range manipulations. 4/5 strength of the shoulder, but the rotator cuff seems to fire well. Good stability of the shoulder. Peripheral, vascular, lymphatic examination, skin, neurologic coordination, reflexes, sensation are within normal limits. ASSESSMENT: Impingement SyndromeLeft shoulder. PLAN: The patient has done well with conservative management in regards to the Left shoulder. We discussed the role of medications, physical therapy, injections, and potential surgical interventions depending on conservative outcome Continued conservative management recommended. Along with cortisone injection today. Please see procedure note. Patient will follow up as directed. [email or web address] Not available 04/23/2024 08:51:23 Plan of Treatment Reminders Order Date Submit Date Provider Last Modified By Organization Details Last Modified Time Details Appointments RECHECK 15 2024 07:45A Srui Hunter PA-C Not available Not available Not available Lab None recorded . Referral None recorded . Procedures None recorded . Surgeries None recorded . Imaging None recorded . Medication Orders None recorded . Patient TargetsNo targets recorded. Patient InstructionsNo instructions recorded. Reason for Referral None Reported. Results Created Date Observation Date Name Description Value Unit Range Abnormal Flag Note LastModifiedBy Organization Detail LastModifiedTime 10/20/19 24 08/15/2018 imagi ng/di agnos tic resul t No observ ation record ed. [email or web address] Not Available 09/21 03:30:29 10/20/19 24 08/15/2018 imagi ng/di agnos tic resul t No observ ation record ed. [email or web address] Not Available 09/21 03:30:32 Result Notes None recorded. 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 96507782 Active 2023 Chad Hunter PA-C [address], [place], [address] , [facility] 4 08:54:55 Impingeme nt syndrome of right shoulder region 386064370696 102 Active 2017 Problem Code: M75.41; Problem Code Type: ICD-10; Status: 'A'; Not Available [facility] 4 11:57:27 Impingeme nt syndrome of left shoulder region 570680908355 104 Active 2017 Problem Code: M75.42; Problem Code Type: ICD-10; Status: 'A'; Not Available [facility] 4 11:57:27 Problem Notes None recorded. Procedures Surgical History Date Name Laterality Status Provider Name and Address Organization Details Recorded Time 5 JZShoulder INJ completed Chad Hunter PA-C [address], [place], [address], [facility] 04/23/2024 08:51:15 4 JZShoulder INJ completed Chad Hunter PA-C [address], [place], [address], [facility] 01/23/2024 08:52:21 4 JZShoulder INJ completed Chad Hunter PA-C [address], [place], [address], [facility] 10/24/2023 08:54:24 4 JZCMC Inj completed Chad Hunter PA-C [address], [place], [address], [facility] 10/24/2023 08:54:34 4 JZShoulder INJ completed Chad Hunter PA-C [address], [place], [address], [facility] 07/26/2023 13:08:59 Imaging Results Imaging Date Name Status LastModified by Organiz ation Details LastModified Time 08/15/2018 imaging/diag nostic result completed Information not available 10/20/2023 03:30:29 08/15/2018 imaging/diag nostic result completed Information not available 10/20/2023 03:30:32 Procedure Notes None recorded. Medical Equipment None Reported. Allergies No known drug allergies Medications Name Sig Start Date Stop Date Status Note LastModified by Organization Details LastModified Time blood pressu solution kit active Not Available Not Available Not Available celecoxib 200 mg capsule TAKE 1 CAPSULE BY MOUTH EVERY DAY active Not Available Not Available No t Available amoxicillin 500 mg capsule TAKE 4 CAPSULES BY MOUTH 1 HOUR PRIOR TO PROCEDURE active Not Available Not Available No t Available atorvastati n 40 mg tablet TAKE 1 TABLET BY MOUTH EVERY DAY active Not Available Not Available No t Available carvedilol 25 mg tablet TAKE 1 TABLET BY MOUTH TWICE DAILY. active Not Available Not Available No t Available prednisone 10 mg tablet PLEASE SEE ATTACHED FOR DETAILED DIRECTION S active Not Available Not Available No t Available doxycycline hyclate 100 mg capsule TAKE 1 CAPSULE BY MOUTH TWICE A DAY FOR 10 DAYS active Not Available Not Available No t Available ipratropium 0.5 mg-albutero l 3 mg (2.5 mg base)/3 mL nebulizatio n soln INHALE 1 VIAL VIA NEBULIZER EVERY 4 HOURS NEEDED active Not Available Not Available No t Available meloxicam 15 mg tablet TAKE 1 TABLET BY MOUTH EVERY DAY FOR 30 DAYS active Not Available Not Available No t Available lisinopril 20 mg tablet TAKE 1 TABLET BY MOUTH EVERY DAY active Not Available Not Available No t Available famotidine 40 mg tablet active Not Available Not Available Not Available codeine sulfate 15 mg tablet TAKE 1 TABLET BY MOUTH FOUR TIMES A DAY FOR 10 DAYS NEEDED active Not Available Not Available No t Available levofloxaci n 250 mg tablet TAKE 1 TABLET BY MOUTH DAY BEFORE PROCEDURE ,DAY OF AND DAY AFTER PROCEDURE active Not Available Not Available No t Available amlodipine 5 mg tablet TAKE 1 TABLET BY MOUTH EVERY DAY active Not Available Not Available No t Available tramadol 50 mg tablet 2 TABS NEEDED ORALLY ONCE A DAY 30 DAYS active Not Available Not Available No t Available magnesium oxide 400 mg (241.3 mg magnesium) tablet TAKE 2 TABLETS BY MOUTH ONCE DAILY WITH FOOD active Not Available Not Available No t Available cephalexin 500 mg capsule active Not Available Not Available Not Available pantoprazol e 40 mg tablet,mulugeta yed release TAKE 1 TABLET BY MOUTH TWICE A DAY FOR 30 DAYS active Not Available Not Available No t Available albuterol sulfate HFA 90 mcg/actuati on aerosol inhaler INHALE 1 PUFF INTO THE LUNGS EVERY 4 HOURS NEEDED FOR 30 DAYS 01/22 completed Not Available Not Available Not Available doxycycline hyclate 100 mg tablet TAKE 1 TABLET BY MOUTH EVERY DAY FOR 10 DAYS active Not Available Not Available No t Available Hibiclens 4 % topical liquid USE DIRECTED TO CLEANSE WOUND DAILY active Not Available Not Available No t Available oxycodone 5 mg tablet TAKE 1 TO 2 TABLETS BY MOUTH EVERY 4 HOURS NEEDED FOR SEVERE PAIN 01/22 completed Not Available Not Available Not Available tadalafil 20 mg tablet active Not Available Not Available Not Available levalbutero l HFA 45 mcg/actuati on aerosol inhaler INHALE 2 PUFFS NEEDED EVERY 4 HOURS FOR 30 DAYS INHALATIO N EVERY 6 HRS active Not Available Not Available No t Available betamethaso ne dipropionat e Betametha sone Dipropion ate 0.05% Cream 05/03 completed Statu s: 'Disc ontin ued'; Not Available Not Available Not Available Valtrex Valtrex 1GM Tablet 05/03 completed Statu s: 'Disc ontin ued'; Not Available Not Available Not Available Cialis Cialis 20MG Tablet 05/03 completed Statu s: 'Disc ontin ued'; Not Available Not Available Not Available oxycodone HCl-oxycodo ne-ASA 1 tablet four times a day as needed for painDO NOT DRIVE WHILE TAKING THIS MEDICATIO N 12/19 completed Statu s: 'Disc ontin ued'; Not Available Not Available Not Available Farxiga 10 mg tablet TAKE 1 TABLET BY MOUTH EVERY DAY FOR 30 DAYS active Not Available Not Available No t Available Jardiance 10 mg tablet active Not Available Not Available Not Available Stiolto Respimat 2.5 mcg-2.5 mcg/actuati on solution for inhalation INHALE 2 PUFFS INTO THE LUNGS ONCE DAILY active Not Available Not Available No t Available tramadol 100 mg tablet TAKE 1 TABLET BY MOUTH EVERY 8 HOURS NEEDED active Not Available Not Available No t Available Vitals Date Recorded Body height Body mass index (BMI) Body weight Provider Name and Address Organization Details Last Updated DateTime 07/26/2023 177.8 cm 23.7 kg/m2 61282.74 g Merced Curtis [facility] 07/26/2023 13:05:11 Date Recorded Body height Body mass index (BMI) Body weight Provider Name and Address Organization Details Last Updated DateTime 10/24/2023 177.8 cm 23.7 kg/m2 09256.74 g [facility] 10/24/2023 08:48:57 Date Recorded Body height Body mass index (BMI) Body weight Provider Name and Address Organization Details Last Updated DateTime 01/23/2024 177.8 cm 23.7 kg/m2 07165.74 g [facility] 01/23/2024 08:49:29 Date Recorded Body height Body mass index (BMI) Body weight Provider Name and Address Organization Details Last Updated DateTime 04/23/2024 177.8 cm 23.7 kg/m2 92929.74 g [facility] 04/23/2024 08:28:45 Social History None recorded. Functional Status None recorded. Mental Status None recorded. Family History Nothing Reported. Medical History No medical history recorded. Past Encounters Encounter ID Performer Location Encounter Start Date Encounter Closed Date Diagnosis/Indication Diagnosis SNOMED-CT Code Diagnosis ICD10 Code Diagnosis Note [id number] Chad Hunter PA-C [facility] [address] [place] [address] 07/26/2023 12:43:37 08/20/2023 13:07:39 Impingement syndrome of left shoulder region 0873912373 47896 M75.42 [id number] Chad Hunter PA-C [facility] [address] [place] [address] 10/24/2023 08:42:15 11/19/2023 13:35:25 Impingement syndrome of left shoulder region 1197931474 82807 M75.42 Osteoarthr osis of the carpometacarpal joint of the thumb 44949293 M18.9 [id number] Chad Hunter PA-C [facility] [address] [place] [address] 01/23/2024 08:45:15 02/19/2024 07:48:29 Impingement syndrome of left shoulder region 2609699542 68467 M75.42 [id number] Chad Hunter PA-C [facility] [address] [place] [address] 04/23/2024 08:18:47 04/23/2024 08:52:30 Impingement syndrome of left shoulder region [id number] 17410 M75.42 Health Concerns Section Related Observation LastModified by Organization Detai ls LastModified Time None Recorded Concern Status LastModified by Organization Details LastModified Time None Recorded Advance Directives Directive None Recorded Payers Encounter Date Sequence Insurance Name Policy Number Policy Eckert Covered Member ID Eckert Member ID Guarantor Name 07/26/2023 1 [place] [employer] Mikal Elizondo [id number] Mikal Elizondo 10/24/2023 1 [place] [employer] Mikal Elizondo [id number] Mikal Elizondo 10/24/2023 2 [employer] (POS) [id number] Mikal Elizondo [id number] Mikal Elizondo 01/23/2024 1 [place] [employer] Mikal Elizondo [id number] Mikal Elizondo 01/23/2024 2 [employer] (POS) [id number] Mikal Elizondo [id number] Mikal Elizondo 04/23/2024 1 [place] [employer] Mikal Elizondo [id number] Mikal Elizondo 04/23/2024 2 [employer] (POS) [id number] Mikal Elizondo [id number] Mikal Elizondo
--- OUTSIDE RECORDS SUMMARY | 2024-05-05 07:17 | XMS_ITS ---
Author Name [facility] [place] [facility] [place] Address [address] [place] [address] Care Team Providers Care Retail Store Clerk Name Role Phone TAMRA HINSON Primary Care Provider [facility] Insurance Providers: All historical and [...] POINT OF SERVICE [facility]BP Jun 04, 2017 [id number] DENISHA QUENTIN PATIENT AETNA POINT OF SERVICE [facility] CHOI E Feb 19, 2017 [id number] DENISHA QUENTIN PATIENT CAREMARK PRESCRIPT ION [facility] Jun 04, 2017 [id number] QUENTIN DENNY PATIENT CAREMARK PRESCRIPT ION [facility] ANDLUIZ RS Feb 19, 2017 [id number] DENISHA QUENTIN PATIENT CAREMARK PRESCRIPT ION [facility] Feb 19, 2017 [id number] QUENTIN DENNY PATIENT CAREMARK PRESCRIPT ION [facility] Feb 19, 2017 [id number] QUENTIN DENNY PATIENT CAREMARK PRESCRIPT ION RASHEEDA ANDLUIZ RS Aug 19, 2005 [id number] [phone] QUENTIN DENNY PATIENT CAREMARK PRESCRIPT ION RASHEEDA ANDLUIZ RS Aug 19, 2005 [id number] [phone] QUENTIN DENNY PATIENT 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IT PLAN POINT OF SERVICE MHBP Feb 19, 2017 [id number] [phone] QUENTIN DENNY PATIENT 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AN POINT OF SERVICE [facility] Feb 19, 2017 [id number] QUENTIN DENNY PATIENT 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AN POINT OF SERVICE [facility] Feb 19, 2017 [id number] QUENTIN DENNY PATIENT NAMHANDLE RS BENEFIT PLAN POINT OF SERVICE [facility] Jun 04, 2017 [id number] QUENTIN DENNY PATIENT NAMHANDLE RS BENEFIT PLAN PREFERRED PROVIDER ORGANIZAT ION (PPO) STAND TRACI Aug 19, 2005 [id number] [phone] QUENTIN DENNY PATIENT MEDICARE ([facility]) MEDICARE () PART B Apr 19, 2013 PART B [id number] [phone] QUENTIN DENNY PATIENT MEDICARE ([facility]) MEDICARE () PART B Apr 19, 2013 PART B [id number] QUENTIN DENNY PATIENT MEDICARE ([facility]) MEDICARE () PART B Apr 19, 2013 PART B [id number] QUENTIN DENNY PATIENT MEDICARE ([facility]) MEDICARE () PART B Apr 19, 2013 PART B [id number] [id number] QUENTIN DENNY PATIENT MEDICARE ([facility]) MEDICARE () PART A Mar 22, 2013 PART A [id number] QUENTIN DENNY PATIENT MEDICARE (WNR) MEDICARE (M) PART A Mar 22, 2013 PART A [id number] QUENTIN DENNY PATIENT MEDICARE (WNR) MEDICARE (M) PART A Mar 22, 2013 PART A [id number] [id number] QUENTIN DENNY PATIENT MEDICARE (WNR) MEDICARE (M) PART A Mar 22, 2013 PART A [id number] QUENTIN DENNY PATIENT MEDICARE (WNR) MEDICARE (M) PART A Mar 22, 2013 PART A [id number] QUENTIN DENNY PATIENT MEDICARE (WNR) MEDICARE (M) PART B Mar 22, 2013 PART B [id number] QUENTIN DENNY PATIENT Selected Encounter This section includes the information on record at [place] for the Encounter. Date/Time Encounter Type Encounter Description Reason Provider Source Aug 02, 2023 01:00 PM OFFICE O/P EST LOW 20 MIN PODIATRY ICD-10-CM E11.51 Type 2 diabetes w diabetic peripheral angiopath w/o gangrene [facility] Encounter Template Text not used by [place] Assessments - Encounter Diagnoses This section includes the primary and secondary diagnoses documented for the Encounter. Date/Time Primary/Secondary Diagnosis Diagnosis Name Provider Source Sep 11, 2023 08:25 AM PRIMARY Type 2 diabetes w diabetic peripheral angiopath w/o gangrene [facility] Sep 11, 2023 08:25 AM SECONDARY Nail dystrophy [facility] Sep 11, 2023 08:25 AM SECONDARY Type 2 diabetes w diabetic autonomic (poly)neuropathy [facility] Plan of Treatment: Future Appointments (+ 6 months) and Future Tests (+/- 45 days) The Plan of Treatment section includes future care activities for the patient from all [place] treatmentfacilities. This section includes future appointments and future orders which are active, pending or scheduled. Future Appointments This section includes appointments that were scheduled to occur 6 months from the date of the Encounter, up to a maximum of 20 appointments. The data comes from all [place] treatment facilities. Appointment Date/Time Appointment Type Appointme nt Facility Name Aug 15, 2023 09:00 AM AMBULATORY - MEDICINE [place] [facility] [facility] Sep 05, 2023 01:00 PM AM[facility]ULATORY [facility] [place] [facility] [place] [facility] Oct 09, 2023 09:30 AM [facility]AT[facility]ICINE [place] [facility] [place] [facility] Oct 09, 2023 10:45 AM AM[facility]ULATORY [place]ICINE [place] [facility] [facility] Oct 19, 2023 02:15 PM AMBULATORY - MEDICINE [place] [facility] [facility] Oct 29, 2023 10:00 AM AMBULATORY - MEDICINE [place] [facility] [place] [facility] Jan 11, 2024 08:00 AM AMBULATORY [place]ICINE [place] [facility] [place] [facility] Jan 31, 2024 01:30 PM AMBULATORY - MEDICINE [place] [facility] [place] [facility] Lab Results: +/- 30 days of the encounter This section includes the Chemistry and Hematology Lab Results on record with [place] for the patient. Radiology Reports and Pathology Reports are provided separately, in subsequent sections. Lab Results This section contains the Chemistry/Hematology Results that were resulted 30 days before or 30 daysafter the date of the Encounter. Date/Time Source Result Type Result - Unit Interpretation Reference Range Comment Aug 07, 2023 02:23 PM [place] [facility] [place] [facility] CALCIUM Specimen Type: SERUM No comment entered. Ordering Provider: NEY STEVENS Report Released Date/Time: Apr 17, 2023 01:00 PM Reporting Lab: [place] [facility] [place] [facility] [address] [facility] [address] Performing Lab: [place] [facility] [place] [address] [address] CALCIUM 8.6 mg/dL 8.5-10.2 Aug 07, 2023 02:23 PM [place] [facility] [facility] VITAMIN D (25-OH) Specimen Type: SERUM No comment entered. Ordering Provider: NEY STEVENS Report Released Date/Time: Apr 17, 2023 01:00 PM Reporting Lab: [place] [facility] [place] [address] [address] Performing Lab: [place] [facility] [place] [facility] [address] [facility] [address] VITAMIN D (25-OH) 39 ng/mL 20-50 Aug 07, 2023 02:23 PM [facility] [place] [facility] ALBUMIN Specimen Type: SERUM No comment entered. Ordering Provider: NEY STEVENS Report Released Date/Time: Apr 17, 2023 01:00 PM Reporting Lab: [place] [facility] [place] [facility] [address] [facility] [address] Performing Lab: [place] [facility] [place] [facility] [address] [facility] [address] ALBUMIN 4.1 g/dL 3.5-5.0 Aug 07, 2023 02:23 PM [facility] PO4 Specimen Type: SERUM No comment entered. Ordering Provider: NEY STEVENS Report Released Date/Time: Apr 17, 2023 01:00 PM Reporting Lab: [facility] [place] [facility] [address] [facility] [address] Performing Lab: [facility] [place] [address] [address] PO4 3.6 mg/dL 2.5-5.0 Aug 07, 2023 02:23 PM [facility] PTH INTACT Specimen Type: SERUM No comment entered. Ordering Provider: NEY STEVENS Report Released Date/Time: Apr 17, 2023 01:00 PM Reporting Lab: [place] [facility] [place] [facility] [address] [facility] [address] Performing Lab: [place] [facility] [place] [address] [address] PTH INTACT 106.4 pg/mL H 10-65 Aug 07, 2023 02:23 PM [facility] MICROALBUMIN CREATININE RATIO PANEL Specimen Type: URINE No comment entered. Ordering Provider: NEY STEVENS Report Released Date/Time: Apr 17, 2023 01:00 PM Reporting Lab: [facility] [place] [address] [address] Performing Lab: [facility] [place] [facility] [address] [facility] [address] MICROALBUMIN/C REATININE RATIO 56.9 mg/g H 0-29.9 MICROALBUMIN,Q UANTITATIVE 4.6 mg/dL RR UNAVAIL CREATININE URINE 80.80 mg/dL Aug 07, 2023 02:23 PM [facility] CHOLESTEROL Specimen Type: SERUM No comment entered. Ordering Provider: NEY STEVENS Report Released Date/Time: Apr 17, 2023 01:00 PM Reporting Lab: [place] [facility] [place] [facility] [address] [facility] [address] Performing Lab: [place] [facility] [place] [address] [address] CHOLESTEROL 121 mg/dL Aug 07, 2023 02:23 PM [facility] ALKALINE PHOSPHATASE Specimen Type: SERUM No comment entered. Ordering Provider: NEY STEVENS Report Released Date/Time: Apr 17, 2023 01:00 PM Reporting Lab: [place] [facility] [place] [facility] [address] [facility] [address] Performing Lab: [place] [facility] [place] [facility] [address] [facility] [address] ALKALINE PHOSPHATASE 53 U/L 40-150 Aug 07, 2023 02:23 PM [facility] HDL CHOLESTEROL Specimen Type: SERUM No comment entered. Ordering Provider: NEY STEVENS Report Released Date/Time: Apr 17, 2023 01:00 PM Reporting Lab: [facility] [facility] [address] [facility] [address] Performing Lab: [place] [facility] [place] [address] [address] HDL CHOLESTEROL 35 mg/dL L 40-60 Aug 07, 2023 02:23 PM [facility] [place] [facility] BASIC METABOLIC PANEL (non-fasting) Specimen Type: SERUM No comment entered. Ordering Provider: NEY STEVENS Report Released Date/Time: Apr 17, 2023 01:00 PM Reporting Lab: [facility] [address] [facility] [address] Performing Lab: [facility] [address] UREA NITROGEN 21 mg/dL 7-25 GLUCOSE 129 mg/dL H 65-100 SODIUM 137 mmol/L 135-145 POTASSIUM 3.7 mmol/L 3.5-5.0 CHLORIDE 103 mmol/L 100-110 CO2 23 meq/L 20-30 CREATININE, Serum 1.58 mg/dL H 0.50-1.40 eGFR(CKD-EPI 2020) 45 mL/min L >60 Aug 07, 2023 02:23 PM [facility] FERRITIN Specimen Type: SERUM No comment entered. Ordering Provider: NEY STEVENS Report Released Date/Time: Apr 17, 2023 01:00 PM Reporting Lab: [address] [address] Performing Lab: [facility] [address] FERRITIN 42 ng/mL 20-300 Aug 07, 2023 02:23 PM [facility] IRON & TIBC PANEL Specimen Type: SERUM No comment entered. Ordering Provider: NEY STEVENS Report Released Date/Time: Apr 17, 2023 01:00 PM Reporting Lab: [address] [address] Performing Lab: [facility] [address] TIBC 335 ug/dL 204-475 IRON 73 ug/dL 40-160 Transferrin Saturation 21.8 20.0-50.0 Aug 07, 2023 02:23 PM [facility] CBC Specimen Type: BLOOD No comment entered. Ordering Provider: NEY STEVENS Report Released Date/Time: Apr 17, 2023 01:00 PM Reporting Lab: [address] [address] Performing Lab: [facility] [address] WBC 11.74 10*3/uL H 4.50-11.00 RBC 4.26 10*6/uL 4.23-5.66 HGB 12.4 g/dL L 12.8-17 HCT 38.3 L 39.2-50.4 MCV 89.9 fL 82-99 MCHC 32.4 g/dL 30.8-35.1 PLT 224 10*3/uL 140-360 RDW-CV 16.2 H 12.0-16.0 MCH 29.1 pg 26.2-32.6 Aug 07, 2023 02:23 PM [facility] MAGNESIUM Specimen Type: SERUM No comment entered. Ordering Provider: NEY STEVENS Report Released Date/Time: Apr 17, 2023 01:00 PM Reporting Lab: [address] [address] Performing Lab: [address] [address] MAGNESIUM 2.1 mg/dL 1.6-2.6 Social History: Smoking Status (Most current) and Tobacco Use (All prior to encounter date) This section includes the most current, and the historical, smoking and tobacco- related health factors from the [place] facility where the Encounter took place. Current Smoking Status This section includes the most current smoking, or tobacco-related health factor, from the [place] facility where the Encounter took place. Date/Time Current Smoking Status Comment [facility] Apr 24, 2023 10:30 AM VA-TOBACCO FORMER USER [facility] Tobacco Use History This section includes a history of the smoking, or tobacco-related health factors, that were collected on or before the date of the Encounter. The data comes from the [place] facility where the Encounter took place. Date/Time Smoking Status/Tobac co Use Comment Facility Apr 24, 2023 10:30 AM VA-TOBACCO QUIT 15 YRS OR MORE [place] [facility] [facility] Mar 22, 2022 11:00 AM VA-TOBACCO FORMER USER [place] [facility] Mar 22, 2022 11:00 AM VA-TOBACCO QUIT 15 YRS OR MORE [facility] [facility] Oct 21, 2020 09:30 AM VA-TOBACCO NEVER USED [facility] [place] [facility] Nov 04, 2019 08:30 AM VA-TOBACCO FOR[facility]ER [facility] Nov 04, 2019 08:30 AM VA-TOBACCO QUIT 15 YRS OR MORE [facility] [place] [facility] May 06, 2018 08:27 AM VA-TOBACCO FORMER USER [facility] [place] [facility] May 06, 2018 08:27 AM VA-TOBACCO QUIT 15 YRS OR MORE [facility] [place] [facility] Nov 05, 2017 09:54 AM QUIT TOBACCO USE > 7 YEARS AGO [facility] [place] [facility] June 28, 2016 09:36 AM QUIT TOBACCO USE > 7 YEARS AGO [facility] [place] [facility] Mar 15, 2015 10:54 AM LIFETIME NON-TOBACCO USER quit cigs. 1998 [facility] [place] [facility] Nov 14, 2004 02:40 PM [facility] [place] [facility] May 18, 2003 09:05 AM HISTORY OF SMOKING quit August 1998 [facility] Jun 09, 2002 08:40 AM HISTORY OF SMOKING quit 99. [facility] Jun 09, 2002 08:40 AM QUIT TOBACCO USE > 7 YEARS AGO [facility] [place] [facility] Jun 10, 2001 08:50 AM HISTORY OF SMOKING quit 1998 [facility] Jun 10, 2001 08:50 AM QUIT TOBACCO USE 1-7 YEARS AGO [facility] [place] [facility] Jun 08, 2000 02:55 PM HISTORY OF SMOKING quit 2yrs ago [facility] Encounter Notes: All associated encounter notes This section contains the clinical notes associated to the Encounter. Date/Time Encounter Note(s) Provider Source Aug 13, 2023 04:14 PM LETTERS: LOCAL TITLE: PATIENT LETTER (B) STANDARD TITLE: LETTERS DATE OF NOTE: AUG 13, 2023@16:14 ENTRY DATE: AUG 13, 2023@16:14:38 AUTHOR: GENE MARES EXP COSIGNER: URGENCY: STATUS: COMPLETED [facility] QUENTIN DENNY [address] [place] [place], [address] AUG 13, 2023 Dear QUENTIN DENNY, Your shoes have arrived at the [facility] located at [address] [place] [address]. Please call [phone] ext. [phone] for Gene or ext. [phone] for Ema to make a shoe fitting appointment. Clinic Hours are 8:30am-3:30pm. Walk-ins may not be accommodated. We hope to see you soon. Podiatry Staff [address] [address] GENE MARES [place] [facility] Aug 02, 2023 01:01 PM PODIATRY NOTE: LOCAL TITLE: PODIATRY NOTE STANDARD TITLE: PODIATRY NOTE DATE OF NOTE: AUG 02, 2023@13:01 ENTRY DATE: AUG 02, 2023@13:01:08 AUTHOR: [address] COSIGNER: URGENCY: STATUS: COMPLETED Podiatry High Risk Foot Encounter [facility] Clinic provider: [address] [facility] Date: August 02, 2023 DREWARIANAQUENTIN MALE [id number] Mar 73 Primary Care:YEE GAGNON Subjective: Very pleasant 73-year-old male with history of bilateral degenerative joint disease of the knees and status post knee replacement. Within the last year patient had a vascular procedure that sounds like a femorofemoral bypass as he describes it a procedure to transfer blood from the right to the left in the pelvis. It was non-VA procedure patient reports he is doing well from this and that he does not have any pain or discomfort in his legs presently. He was started on clotrimozole tiffanie 1% for toe nail fungus last visit as well as absorbase for skin care Diabetic/ HRF/ PVD LE History: [x] pvd [x] pvd interventions last year fem fem bypass sounds like right to left. non va [ ] neuropathy [ ] meds: [ ] wound active [ ] infection active [ ] wound history yes [ ] amputation hx [ ] deformity [ ] charcot [ ] surgical deformity intervention Sx: Hx prostate ca removed without chem or radiation > 15 years ago doing well but has scant incontinence. PMH list CPRS: Active Problem Iron deficiency anemia D50.9 09/15/2021 KALIN,RANJEETED JAWED Bilateral osteoarthritis of knees M 03/03/2021 KALIN,RANJEETED JAWED Abdominal aortic aneurysm I71.4 04/30/2017 KALIN,RANJEETED JAWED Carotid artery stenosis I65.22 05/06/2018 KALIN,ARJUNAMMED JAWED Shoulder pain R69. 04/30/2017 KALIN,MOHAMMED JAWED Neck pain M54.2 04/30/2017 KALIN,ARJUNAMMED JAWED Raynaud's phenomenon R69. 04/30/2017 KALIN,ARJUNAMMED JAWED Esophageal stricture K22.2 11/08/2015 RANJEET GAGNONED JAWED Type 2 diabetes mellitus (SNOMED CT 11/08/2015 KALINYEE JAWED egd 799.9, Onset 08/17/2008 02/14/2012 KALINRANJEETED JAWED colonoscopy 799.9, Onset 08/17/2008 04/27/2014 KAILNRANJEETED JAWED Chronic obstructive lung disease (S 11/08/2015 KALINRANJEETED JAWED Diffuse spasm of esophagus (SNOMED 11/08/2015 KALINRANJEETED JAWED Chronic Renal disease (ICD-9-CM 585 03/14/2010 ARJUN GAGNONMELE JAWED Hyperlipidemia (SNOMED CT 05579776) 11/08/2015 RANJEET GAGNONED JAWED Coronary Artery Disease * (ICD-9-CM 02/14/2012 KALINRANJEETED JAWED Psoriasis * (ICD-9-CM 696.1) 696.1 02/14/2012 RANJEET GAGNONED JAWED Sinus tachycardia (SNOMED CT 770582 04/30/2017 ARJUN GAGNONMILTONED JAWED Male erectile disorder 302.72 02/14/2012 [facility] Prostate Cancer 185. 02/14/2012 KALIN,[facility]JUN[facility] J[facility] Reflux Esophagitis 530.11 02/14/2012 RANJEET GAGNONED JAWED Nicotine-Related Disorder NOS (DSM- 02/14/2012 ARJUN GAGNONMILTONED JAWED Essential hypertension (SNOMED CT 5 11/08/2015 YEE GAGNON Active Out Patient medications: Active Outpatient Medications (including Supplies): Active Outpatient Medications Status 1) EMPAGLIFLOZIN 10MG TAB TAKE ONE TABLET BY MOUTH ONCE ACTIVE (S) DAILY 2) FERROUS GLUCONATE 324MG TAB TAKE ONE TABLET BY MOUTH ACTIVE ONCE DAILY TO SUPPLEMENT IRON 3) INCONT LINER DEPEND GUARDS USE 1 PAD TOPICALLY FIVE ACTIVE TIMES A DAY 4) TADALAFIL 20MG TAB TAKE ONE TABLET BY [...] PUFFS BY MOUTH TWICE DAILY 6) Non-VA CALCIUM CARB 1GM (CA 400MG) CHEW TAB 1GM BY ACTIVE MOUTH ONCE DAILY 7) Non-VA LISINOPRIL 20MG TAB 20MG BY MOUTH ONCE DAILY ACTIVE 8) Non-VA MAGNESIUM OXIDE 420MG TAB 420MG BY MOUTH ONCE ACTIVE DAILY 9) Non-VA OLODATEROL/TIOTROP 2.5MCG/ACTUAT 60D INH 2 ACTIVE PUFFS (1 DOSE) BY MOUTH ONCE DAILY 10) Non-VA PANTOPRAZOLE NA 40MG EC TAB 40MG BY MOUTH ACTIVE EVERY MORNING 30 MINUTES BEFORE BREAKFAST 11) Non-VA TRAMADOL HCL 50MG TAB 50MG BY MOUTH ACTIVE 15 Total Medications Imaging reports: Lab Data: CHEM 7 TREND LAB CUMULATIVE SELECTED Collection DT Spec GLUCOSE BUN CREATIN Sodium K+/Pot CL CO2 12/18/2022 10:03 SERUM 112 H 20 2.18 H 137 4.9 102 23 10/04/2022 07:33 SERUM 117 H 16 1.76 H 136 5.3 H 102 24 03/09/2022 08:25 SERUM 144 H 18 1.47 H 138 5.2 H 101 26 09/05/2021 07:39 SERUM 111 H 14 1.27 134 L 5.2 H 99 L 24 03/01/2021 08:40 URINE 31 Collection DT Spec eGFR 01/25/2009 07:54 SERUM 55 07/16/2008 07:39 SERUM 60 01/20/2008 07:28 SERUM 60 09/09/2007 07:24 SERUM 60 05/01/2007 14:36 SERUM 60 LAB CUMULATIVE SELECTED 2 No selection items chosen for this component. CHEM 7 Results Collection DT Spec Sodium K+/Pot CL CO2 GLUCOSE BUN eGFR 12/18/2022 10:03 SERUM 137 4.9 102 23 112 H 20 10/04/2022 07:33 SERUM 136 5.3 H 102 24 117 H 16 HEMOGLOBIN A1C TREND Collection DT Spec HGBA1c 10/04/2022 07:33 BLOOD 6.0 H 03/09/2022 08:25 BLOOD 6.8 H 09/05/2021 07:39 BLOOD 6.5 H 03/01/2021 08:40 BLOOD 6.3 H 10/18/2020 07:41 BLOOD 5.7 H ALBUMIN Collection DT Specimen Test Name Result Units Ref Range 12/18/2022 10:03 SERUM ALBUMIN 3.8 g/dL 3.5 - 5.0 BMI:BMI: 25.1 PE:General: Well-appearing awake alert oriented x3 ambulating independently, breathing on room air speaking in full sentences, well-nourished well-developed. Good hygiene Pulses bilateral dopplerable DP and PT monophasic but good signals skin warm pink well-hydrated. No pedal ankle or leg hair present, trace +1 ankle edema bilaterally, no evidence of venous stasis or lymphedema. Structural: No significant structural abnormalities osseous or positional deformities bilaterally. Sensation: 8 out of 10 for [place] monofilament testing suggesting mild peripheral neuropathy. Muscle bulk and tone normal strength 5/5 the patient acknowledges he is still recovering from his surgery and not as strong as usual. Integument: No open wounds or sores present nails are dystrophic and elongated but without any other significant pathology no high-pressure calluses or other lesions heels intact. PAVE:2 history of peripheral vascular disease with procedures Impression: -Diabetes with PVD but stable exam today, mild peripheral neuropathy -Nail dystrophy Plan: -Debridement of nails left and right 1 through 5 without incident using sterile instrumentation which was reprocessed according to [facility] SOP. -Reviewed diabetic foot care and education as follows: Patient had diabetes foot care education at this encounter. The patient was educated on the following: DO - Wear panty hose or socks. - Wear comfortable shoes that fit well. - Wear shoes or slippers at all times. - Keep skin soft. Put lotion on top and bottom of feet. - Use only luke warm water when washing your feet. - Look at feet daily for open sores, cuts or color changes. Using a hand held mirror is helpful when looking at the bottom of your feet. - Keep feet dry, especially between the toes. Use powder if needed. - Have feet checked by your doctor or foot doctor regularly. - If you have an open sore, drainage, color changes, increased warmth or pain, notify your doctor promptly. - Cut toenails straight across. *Check with your doctor if you have nerve disease DO NOT - Go barefoot. - Let feet get dry and cracked. - Use hot water when washing your feet. - Wear torn or tight shoes. - Wear tight socks or knee-highs. - Use heating pads, hot water bottles or iodine; they may cause harm. - Use corn medicine or razors. Level of Understanding: Good -ordered dm foot wear. Recall: 3 to 4 months Return sooner if any clinical signs of [...] as results of the physical exam and leasing consultant opinions and recommendations as sought. Alternatives [...] -The on this visit was given information [facility] and encouraged to enroll if not already having done so. /noe/ [address] DPM PODIATRY ATTENDING Signed: 08/03/2023 14:[address] [place] [facility]
[2024-05-05 10:41] LABS: Estimated Average Glucose 128 mg/dL; Hemoglobin A1C 141.1448 umol/L; Hemoglobin A1c % 6.1 % (<6.0); Total Hemoglobin (HGBA1C) 3242.9825 umol/L
[2024-05-05 12:23] LABS: Alanine Aminotransferase 24 U/L (0-40); Alkaline Phosphatase 51 U/L (39-117); Aspartate Amino Transferase 21 U/L (5-37); Bilirubin Direct 0.2 mg/dL (0.0-0.5); Bilirubin Total 0.4 mg/dL (0.0-1.0); Cholesterol 135 mg/dL (<200); Glucose Fasting 97 mg/dL (60-99); HDL Cholesterol 39 mg/dL (>40); LDL Cholesterol Calculated 46 mg/dL (<100); Triglycerides 251 mg/dL (<150)
[2024-05-05 12:29] LABS: Reflex LDLD? No
== END 2024-05-05 07:12 | disposition home or self-care (01) ==
LOC: HO.HMGCLDS 07:11
PROVIDERS: PCP Internal Medicine; Visit Provider Internal Medicine
DX: E11.9 Type 2 diabetes mellitus without complications (principal); E78.1 Pure hyperglyceridemia
CPT/HCPCS: 36415; 80061; 80076; 82947; 83036

== ENCOUNTER 2024-10-15 08:12 | Outpatient (AMB) | payer MEDICARE, OTHER, SELFPAY ==
--- OUTSIDE RECORDS SUMMARY | 2023-10-29 06:00 | XMS_ITS | Encounter Summary ---
Author Name [facility] [place] [facility] [place] Address [address] [place] [address] Care Team Providers Care Airport Planner Name Role Phone TAMRA HINSON Primary Care Provider Unavaillegacy health e Insurance Providers: All historical and current Section Date Range: From patient's date of to the date document was created. This section includes the names of all active insurance providers for the patient. Insurance Provider Type of Coverage Plan Name Start of Policy Coverage End of Policy Coverage Group Number Member ID Insurance Provider's Telephone Number Policy Eckert's Name Patient's Relationship to Policy Eckert [employer] POINT OF SERVICE [facility] Jun 04, 2017 [id number] DENISHA QUENTIN PATIENT [employer] POINT OF SERVICE [facility]BP CHOI E Feb 19, 2017 [id number] [phone] DENISHA QUENTIN PATIENT [place] PRESCRIPT ION [facility]BP Jun 04, 2017 [id number] QUENTIN DENNY PATIENT [place] PRESCRIPT ION [facility] ANDLUIZ RS Feb 19, 2017 [id number] [phone] DENISHA QUENTIN PATIENT [employer] PRESCRIPT ION [facility] Feb 19, 2017 [id number] [phone] QUENTIN DENNY PATIENT [employer] PRESCRIPT ION [facility]BP Feb 19, 2017 [id number] [phone] QUENTIN DENNY PATIENT [employer] PRESCRIPT ION RASHEEDA ANDLUIZ RS Aug 19, 2005 [id number] [id number] [phone] QUENTIN DENNY PATIENT [employer] PRESCRIPT ION RASHEEDA ANDLUIZ RS Aug 19, 2005 [id number] QUENTIN DENNY PATIENT 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 POINT OF SERVICE MHBP Feb 19, 2017 [id number] [phone] QUENTIN DENNY PATIENT 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 POINT OF SERVICE [facility]BP Feb 19, 2017 [id number] QUENTIN DENNY PATIENT 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 POINT OF SERVICE [facility]BP Feb 19, 2017 [id number] [phone] QUENTIN DENNY PATIENT NAMHANDLE RS BENEFIT PLAN POINT OF SERVICE [facility]BP Jun 04, 2017 [id number] QUENTIN DENNY PATIENT NAMHANDLE RS BENEFIT PLAN PREFERRED PROVIDER ORGANIZAT ION (PPO) STAND TRACI Aug 19, 2005 [id number] [id number] [phone] QUENTIN DENNY PATIENT MEDICARE ([facility]) MEDICARE () PART B Apr 19, 2013 PART B [id number] QUENTIN DENNY PATIENT MEDICARE ([facility]) MEDICARE () PART B Apr 19, 2013 PART B [id number] [phone] QUENTIN DENNY PATIENT MEDICARE ([facility]) MEDICARE () PART B Apr 19, 2013 PART B [id number] QUENTIN DENNY PATIENT MEDICARE ([facility]) MEDICARE () PART B Apr 19, 2013 PART B [id number] [phone] QUENTIN DENNY PATIENT MEDICARE ([facility]) MEDICARE () PART A Mar 22, 2013 PART A [id number] QUENTIN DENNY PATIENT MEDICARE ([place]) MEDICARE (M) PART A Mar 22, 2013 PART A [id number] [phone] QUENTIN DENNY PATIENT MEDICARE (WNR) MEDICARE (M) PART A Mar 22, 2013 PART A [id number] QUENTIN DENNY PATIENT MEDICARE (WNR) MEDICARE (M) PART A Mar 22, 2013 PART A [id number] [phone] QUENTIN DENNY PATIENT MEDICARE (WNR) MEDICARE (M) PART A Mar 22, 2013 PART A [id number] QUENTIN DENNY PATIENT MEDICARE (WNR) MEDICARE (M) PART B Mar 22, 2013 PART B [id number] [phone] [id number] QUENTIN DENNY PATIENT Selected Encounter This section includes the information on record at [place] for the Encounter. Date/Time Encounter Type Encounter Description Reason Provider Source Oct 29, 2023 10:00 AM OFFICE O/P EST MOD 30 MIN PRIMARY CARE/MEDICINE ICD-10-CM D50.9 Iron deficiency anemia, unspecified FURCOLO,TARMA IHE Encounter Template Text not used by [place] Assessments - Encounter Diagnoses This section includes the primary and secondary diagnoses documented for the Encounter. Date/Time Primary/Secondary Diagnosis Diagnosis Name Provider Source Nov 13, 2023 10:37 AM PRIMARY Iron deficiency anemia, unspecified FURCOLO,TAMRA [facility] Nov 13, 2023 10:37 AM SECONDARY Bilateral primary osteoarthritis of knee FURCOLO,TAMRA [facility] Nov 13, 2023 10:37 AM SECONDARY Esophageal obstruction FURCOLO,TAMRA [facility] Nov 13, 2023 10:37 AM SECONDARY Essential (primary) hypertension FURCOLO,TAMRA [facility] Nov 13, 2023 10:37 AM SECONDARY Mixed hyperlipidemia FURCOLO,TAMRA [facility] Nov 13, 2023 10:37 AM SECONDARY Occlusion and stenosis of left carotid artery FURCOLO,TAMRA [facility] Nov 13, 2023 10:37 AM SECONDARY Type 2 diabetes mellitus without complications TAMRA HINSON [facility] Plan of Treatment: Future Appointments (+ 6 months) and Future Tests (+/- 45 days) The Plan of Treatment section includes future care activities for the patient from all [place] treatmentfacilities. This section includes future appointments and future orders which are active, pending or scheduled. Future Appointments This section includes appointments that were scheduled to occur 6 months from the date of the Encounter, up to a maximum of 20 appointments. The data comes from all [place] treatment facilities. Appointment Date/Time Appointment Type Appointme nt Facility Name Jan 11, 2024 08:00 AM [facility]ORY [facility] Jan 31, 2024 01:30 PM [facility]ORY [facility] Feb 26, 2024 09:00 AM [facility] Apr 04, 2024 09:30 AM [facility] Apr 24, 2024 10:00 AM [facility]BULATORY MEDICINE [facility] Lab Results: +/- 30 days of the encounter This section includes the Chemistry and Hematology Lab Results on record with [place] for the patient. Radiology Reports and Pathology Reports are provided separately, in subsequent sections. Lab Results This section contains the Chemistry/Hematology Results that were resulted 30 days before or 30 daysafter the date of the Encounter. Date/Time Source Result Type Result - Unit Interpretation Reference Range Specimen Type Comment Oct 19, 2023 09:00 AM [facility] HEMOGLOBIN A1C PANEL BLOOD Specimen Type: BLOOD Comment: Values obtained from A1C measurements can vary. For atypical A1C assays, a reported value of 7.0 could actually be between 6.72 and 7.28 if measured by a reference method. A reported value of 9.0 could actually be between 8.73 and 9.27. Ref: http://[email or web address] .org/CAPdata.as p Ordering Provider: TAMRA HINSON Report Released Date/Time: Oct 09, 2023 12:53 PM Reporting Lab: [address] [address] Performing Lab: [facility] [address] [facility] [address] HEMOGLOBIN A1C 6.0 H 4.0-5.6 Oct 19, 2023 09:00 AM [facility] LIPID PANEL, NON FASTING SERUM Specimen Type: SERUM No comment entered. Ordering Provider: TAMRA HINSON Report Released Date/Time: Oct 09, 2023 12:53 PM Reporting Lab: [facility] [address] [facility] [address] Performing Lab: [facility] [address] [facility] [address] CHOLESTEROL 118 mg/dL TRIGLYCERIDE 237 mg/dL H 0-150 LDL calculated 40 mg/dL 0-129 CHOL/HDL 3.8 HDL CHOLESTEROL 31 mg/dL L 40-60 Vital Signs: All taken on the encounter date This section contains inpatient and outpatient Vital Signs collected on the date of the Encounter. Date/Time Temperature Pulse Blood Pressure Respiratory Rate SP02 Pain Height Weight Body Mass Index Source Oct 29, 2023 09:59 AM 97.4 83 142/80 16 97 0 170 24 [facility] Social History: Smoking Status (Most current) and Tobacco Use (All prior to encounter date) This section includes the most current, and the historical, smoking and tobacco- related health factors from the [place] facility where the Encounter took place. Current Smoking Status This section includes the most current smoking, or tobacco-related health factor, from the [place] facility where the Encounter took place. Date/Time Current Smoking Status Comment James rivera Apr 24, 2023 10:30 AM VA-TOBACCO FORMER USER [facility] Tobacco Use History This section includes a history of the smoking, or tobacco-related health factors, that were collected on or before the date of the Encounter. The data comes from the [place] facility where the Encounter took place. Date/Time Smoking Status/Tobac co Use Comment [facility] Apr 24, 2023 10:30 AM VA-TOBACCO QUIT 15 YRS OR MORE [facility] Mar 22, 2022 11:00 AM VA-TOBACCO FORMER USER [facility] Mar 22, 2022 11:00 AM VA-TOBACCO QUIT 15 YRS OR MORE [facility] Oct 21, 2020 09:30 AM [facility] Nov 04, 2019 08:30 AM VA-TOBACCO FORMER USER [facility] Nov 04, 2019 08:30 AM VA-TOBACCO QUIT 15 YRS OR MORE [facility] May 06, 2018 08:27 AM VA-TOBACCO FORMER USER [facility] May 06, 2018 08:27 AM VA-TOBACCO QUIT 15 YRS OR MORE [facility] Nov 05, 2017 09:54 AM QUIT TOBACCO USE > 7 YEARS AGO [facility] June 28, 2016 09:36 AM QUIT TOBACCO USE > 7 YEARS AGO [facility] Mar 15, 2015 10:54 AM LIFETIME NON-TOBACCO USER quit cigs. 1998 [facility] Nov 14, 2004 02:40 PM HISTORY OF SMOKING [facility] May 18, 2003 09:05 AM HISTORY OF SMOKING quit August 1998 [facility] Jun 09, 2002 08:40 AM HISTORY OF SMOKING quit . [facility] Jun 09, 2002 08:40 AM QUIT TOBACCO USE > 7 YEARS AGO [facility] Jun 10, 2001 08:50 AM HISTORY OF SMOKING quit 1998 [facility] Jun 10, 2001 08:50 AM QUIT TOBACCO USE 1-7 YEARS AGO [facility] Jun 08, 2000 02:55 PM HISTORY OF SMOKING quit 2yrs ago [facility] Encounter Notes: All associated encounter notes This section contains the clinical notes associated to the Encounter. Date/Time Encounter Note(s) Provider Source Oct 29, 2023 10:19 AM PHYSICIAN NOTE: LOCAL TITLE: NOTE STANDARD TITLE: PHYSICIAN NOTE DATE OF NOTE: OCT 29, 2023@10:19 ENTRY DATE: OCT 29, 2023@10:19:11 AUTHOR: FURCOLO,TAMRA EXP COSIGNER: URGENCY: STATUS: COMPLETED QUENTIN DENNY is a 73 year old [place] MALE who is being seen today in primary care for routine follow up. CARE TEAM Community Primary Care Provider: DR. Kiko Gresham, [facility] Specialists: nephrology- Dr. Sethi [facility] Specialists: vascular- Dr. Gomez, [facility] GI- Dr. Kingston Cardiology- DR. Rodriguez physiatry- PSS- injections in L4 HISTORY PERIOD OF SERVICE - [place] [facility] CONNECTED % - 0 HISTORY OF PRESENT ILLNESS Patient presents today for routine follow-up RELEVANT PAST MEDICAL HISTORY Active problems - Computerized Problem List is the source for the followin. Iron deficiency anemia 2. Bilateral osteoarthritis of knees 3. Abdominal aortic aneurysm 5 cm patient is getting ultrasound every 6 months by [facility] 4. Carotid artery stenosis left carotid artery blockage being followed by [facility] vascular 5. Shoulder pain status post cortisone shot in both shoulder January 25, 2017 6. Neck pain arthritis/bony spur Dr. hodge prescribed Celebrex 7. Raynaud's phenomenon 8. Esophageal stricture 9. Type 2 diabetes mellitus (SNOMED CT 29183587) 10. Endoscopy abnormal Grade 4 esophagitis at GE junction Stricture of GE junction Recent EGD shows some reactive changes but no Bernal's esophagus 11. colonoscopy Cecal submucosal hemorrhage diverticulosis 2015--- Diverticulosis--rept in 10 yrs 12. Chronic obstructive lung disease (SNOMED CT 31733253) 13. Diffuse spasm of esophagus (SNOMED CT 63580565) s/p dilatation by Dr [facility]- 14. Chronic Renal disease 15. Hyperlipidemia (SNOMED CT 96088879) 16. Coronary Artery Disease * 17. Psoriasis * 18. Sinus tachycardia (SNOMED CT 70272982) Echocardiogram, showing suggestion of diminished LV complian There is trivial tricuspid regurgitation. 19. Male erectile disorder PER LETTER BY UROLOGY DR HAYWARD-MAR 2001 PT IS ON VIAGRA S/O RETROPUBIC RADICAL PROSTATECTOMY 20. Prostate Cancer RADICAL PROSTATECTOMY AND ALSO LYMPH NODE DISSECTION LYMPH NODE WERE NEGATIVE PATRIC SCORE 7 21. Reflux Esophagitis 22. Nicotine-Related Disorder NOS (DSM-IV 292.9) decrease fvc quit smoking in 1998 23. Essential hypertension (SNOMED CT 16611616) PAST SURGICAL HISTORY aortic aneurysm repair prostatectomy bilateral TKR FAMILY HISTORY Mother: at age 92, dementia Father: 42 ETOH Siblings: 2 brother - HTN sister- HTN SOCIAL HISTORY Background: born and raised in [place]. 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- [employer] Alcohol Use: occasional, never problematic Tobacco Use: quit 25 years, 30 years x 1 ppd Exercise: golf 2x per week, treadmill 1/2 mile ALLERGIES VARDENAFIL MEDICATIONS Active and Recently Outpatient Medications (excluding Supplies): Active Outpatient Medications Status ========= 1) ASCORBIC ACID 500MG TAB TAKE ONE TABLET BY MOUTH ONCE ACTIVE DAILY FOR VITAMIN/NUTRITION SUPPLEMENT 2) CARBOXYMETHYLCELLULOSE NA 0.5% OPH SOLN INSTILL 1 ACTIVE DROP INTO EACH EYE FOUR TIMES A DAY FOR DRY EYE 3) CLOTRIMAZOLE 1% TOP SOLN APPLY 1 DROP TOPICALLY ONCE ACTIVE DAILY FOR FUNGAL INFECTION. APPLY WHEN NAIL IS DRY (NOT AFTER SHOWER/BATH). USE FOR AT LEAST 9-12 MONTHS. REGULAR NAIL CARE IS RECOMMENDED 4) EMPAGLIFLOZIN 10MG TAB TAKE ONE TABLET BY MOUTH ONCE ACTIVE (S) DAILY FOR TYPE 2 DIABETES MELLITUS 5) FAMOTIDINE 40MG TAB TAKE ONE TABLET BY MOUTH ONCE ACTIVE DAILY FOR STOMACH ACID 6) FERROUS GLUCONATE 324MG TAB TAKE TWO TABLETS BY MOUTH ACTIVE (S) ONCE DAILY TO SUPPLEMENT IRON 7) HYDROPHILIC (EQV EUCERIN) TOP CREAM APPLY A SMALL ACTIVE AMOUNT TOPICALLY ONCE DAILY TO DRY, CRACKED SKIN ON FEET 8) MULTIVIT/OPHTH AREDS2/LUTE/ZEAX CAP/TAB TAKE 1 ACTIVE CAPSULE BY MOUTH TWICE DAILY FOR VITAMIN SUPPLEMENTATION IN THE MORNING AND EVENING, WITH FOOD 9) TADALAFIL 20MG TAB TAKE ONE TABLET BY MOUTH NEEDED ACTIVE Inactive Outpatient Medications Status ========= 1) ACCU-CHEK GUIDE (GLUCOSE) TEST STRIP USE 1 STRIP TO TEST BLOOD SUGARS TWO TIMES A WEEK Active Non-VA Medications Status ========= 1) Non-VA ALBUTEROL 3/IPRATROP 0.5MG/3ML INHL 3ML 1 VIAL ACTIVE (3ML) IN NEBULIZER EVERY 6 HOURS 2) Non-VA AMLODIPINE BESYLATE 5MG TAB 5MG BY MOUTH ONCE ACTIVE DAILY 3) Non-VA ASPIRIN 81MG EC TAB 81MG BY MOUTH EVERY DAY ACTIVE 4) Non-VA ATORVASTATIN CALCIUM 80MG TAB 40MG BY MOUTH ACTIVE ONCE DAILY 5) Non-VA BECLOMETH 80MCG 120D BREATH ACTVTD INHL 2 ACTIVE PUFFS BY MOUTH TWICE DAILY 6) Non-VA CARVEDILOL 25MG TAB 25MG BY MOUTH TWICE DAILY ACTIVE 7) Non-VA MAGNESIUM OXIDE 420MG TAB 420MG BY MOUTH ONCE ACTIVE DAILY 8) Non-VA OLODATEROL/TIOTROP 2.5MCG/ACTUAT 60D INH 2 ACTIVE PUFFS (1 DOSE) BY MOUTH ONCE DAILY 9) Non-VA PANTOPRAZOLE NA 40MG EC TAB 40MG BY MOUTH ACTIVE TWICE DAILY 10) Non-VA TRAMADOL HCL 50MG TAB 50MG BY MOUTH ACTIVE 20 Total Medications REVIEW OF SYMPTOMS NEGATIVE FOR: CONSTITUTION: no weight loss/gain, fatigue, fevers, night sweats HEENT: no vision problems, hearing loss,swallowing difficulties, sinus pain CV: no chest pain, palpitations, dyspnea on exertion, orthopnea RESP: no cough, shortness of breath, wheezing GI: no abdominal pain, N/V/D, constipation, blood in stool, normal appetite : no urinary frequency, nocturia, hematuria MUSC: no joint pain, joint swelling, muscle aches NEURO: no headaches, dizziness, memory loss, tremor, weakness PSYCH: no depression, anxiety, suicidal or homicidal thoughts SKIN: no rash, new skin lesions PHYSICAL EXAM Vitals: - - - - - - - B/P: 142/80 (10/29/2023 09:59) pulse: 83 (10/29/2023 09:59) resp: 16 (10/29/2023 09:59) temp: 97.4 F [36.3 C] (10/29/2023 09:59) Ht: 70 in [177.8 cm] (04/24/2023 10:25) Wgt: 170 lb [77.11 kg] (10/29/2023 09:59) BMI: BMI: 24.4 Exam: - - - - - - - General: A&O x 3, no acute distress, normal affect and mood Neck: normal thyroid, normal carotids- no bruits CV: RRR S1S2, no murmur Resp: LCTA bilat, no wheezing, rales or rhonchi Neuro: grossly intact, no visible tremor, normal memory and speech Extremities: normal movement of extremities, normal gait, normal strength no LE edema RECENT LABS BMP (FASTING) Collection DT Specimen Test Name Result Units Ref Range 08/07/2023 14:23 SERUM UREA NITROGEN 21 mg/dL 7 - 25 08/07/2023 14:23 SERUM GLUCOSE 129 H mg/dL 65 - 100 08/07/2023 14:23 SERUM SODIUM 137 mmol/L 135 - 145 08/07/2023 14:23 SERUM POTASSIUM 3.7 mmol/L 3.5 - 5.0 08/07/2023 14:23 SERUM CHLORIDE 103 mmol/L 100 - 110 08/07/2023 14:23 SERUM CO2 23 mEq/L 20 - 30 08/07/2023 14:23 SERUM CREATININE, Serum 1.58 H mg/dL 0.50 - 1.40 03/01/2021 08:40 SERUM eGFR (IDMS) 57 L Ref: >=60 LIVER PANEL TREND Collection DT Spec AST ALT T BILI ALK LORENZO T. PROT ALBUMIN 08/07/2023 14:23 SERUM 53 4.1 12/18/2022 10:03 SERUM 69 3.8 10/04/2022 07:33 SERUM 11 11 0.6 73 6.8 3.7 03/09/2022 08:25 SERUM 12 23 0.6 47 6.6 3.6 09/05/2021 07:39 SERUM 10 11 0.6 59 6.4 3.4 L LIPID PANEL TREND Collection DT Spec CHOL HDL CHO/HDL LDL-d LDL-c TRIG 10/19/2023 09:00 SERUM 118 31 L 3.8 40 237 H 08/07/2023 14:23 SERUM 121 35 L 12/18/2022 10:03 SERUM 110 24 L 4.6 31 277 H 10/04/2022 07:33 SERUM 138 27 L 5.1 51 299 H 03/09/2022 08:25 SERUM 164 42 3.9 66 279 H CBC TREND Collection DT Spec WBC RBC HGB HCT MCV MCH PLT 08/07/2023 14:23 BLOOD 11.74 H 4.26 12.4 L 38.3 L 89.9 29.1 224 04/04/2023 10:42 BLOOD 9.58 4.42 12.0 L 38.3 L 86.7 27.1 214 12/18/2022 10:03 BLOOD 9.18 3.66 L 9.4 L 30.4 L 83.1 25.7 L 316 10/04/2022 07:33 BLOOD 10.23 3.90 L 10.5 L 33.9 L 86.9 26.9 278 03/09/2022 08:25 BLOOD 13.42 H 3.94 L 11.6 L 36.0 L 91.4 29.4 211 HEMOGLOBIN A1C TREND Collection DT Spec HGBA1c 10/19/2023 09:00 BLOOD 6.0 H 10/04/2022 07:33 BLOOD 6.0 H 03/09/2022 08:25 BLOOD 6.8 H 09/05/2021 07:39 BLOOD 6.5 H 03/01/2021 08:40 BLOOD 6.3 H ASSESSMENT AND PLAN Active problems - Computerized Problem List is the source for the following: Iron deficiency anemia- on iron supplements. is taking pantoprazole 40 mg BID due ot esophageal strictures. likely will be hard to absorb iron Abdominal aortic aneurysm - s/p AAA repair. sees vascular surgery Carotid artery stenosis left carotid artery blockage being followed by [facility] vascular Type 2 diabetes mellitus (SNOMED CT 81543675)- good diabetic control- on empagliflozin Chronic obstructive lung disease (SNOMED CT 30085809)- on inhalers though outside pCP Chronic Renal disease- sees dr. Sethi. no longer on lisinopril Hyperlipidemia (SNOMED CT 08579377) Prostate Cancer- s/p prostatectomy >20 years ago Reflux Esophagitis- now on pantorazole 40 mg BID- has needed esophageal stricture dilations with Dr. Kingston Essential hypertension (SNOMED CT 97284938) - elevated today- no longer on lisinopril due to kidney function- on amlodipine 5 mg and coreg 25 mg BID HEALTH MAINTENANCE Colonoscopy (due at age 43) - Abdominal Aortic Aneurysm Screening- known AAA, s/p repair Prostate screening - known prostate CA_ s/p prostatectomy Tetanus: due every 10 years Pneumonia Vacccine: Flu Vaccine: due yearly Covid Vaccine: due yearly FOLLOW UP f/u in 6 mo VISIT TYPE:a MODERATE complexity visit where 30 minutes was spent in direct patient care, review of records and documentation. Upcoming Appointments: 01/31/2024 13:30 CWM/NO/PODIATRY A 02/26/2024 09:00 CWM/NO/NEPHROLOGY/PROV 06/06/2024 13:00 NHM/OPTOMETRY/GUILLEN/ Medication Reconciliation: Outpatient: Has the patient been taking medications as documented in the EMLR? No: Discrepencies were identified. See below. Essential Medication List for Review used to complete this medication reconciliation. INCLUDED IN THIS LIST: Alphabetical list of active outpatient prescriptions dispensed from this [place] (local) and dispensed from another [place] or [facility] facility (remote) as well as inpatient orders (local, pending and active), local clinic medications, locally documented non-VA medications, and local prescriptions that have or been discontinued in the past 90 days. - Discrepancies were identified, addressed, and discussed with the patient/caregiver at this encounter. Discrepancies: added corg, removed lisinopril, PPI is BID - All changes in medications, including all non-VA/Herbal/OTC medications were entered into CPRS. - If there were any medications the patient should no longer take, they were discontinued. - The patient/caregiver was instructed to update this list, discard old lists, and take this list to the next appointment, whether with a VA or non-VA provider. /noe/ TAMRA HINSON D.O. PHYSICIAN Signed: 10/29/2023 11:25 TAMRA HINSON [facility]
--- OUTSIDE RECORDS SUMMARY | 2024-01-11 04:00 | XMS_ITS | Encounter Summary ---
Author Name [facility] [place] [facility] [place] [facility] [place] Address [address] [place] [address] Care Team Providers Care Stone Hand Name Role Phone TAMRA HINSON Primary Care Provider [facility] e Insurance Providers: All historical and current [...] POINT OF SERVICE [facility] Jun 04, 2017 [id number] [phone] DENISHA QUENTIN PATIENT AETNA POINT OF SERVICE [facility] CHOI E Feb 19, 2017 [id number] [phone] DENISHA QUENTIN PATIENT CAREMARK PRESCRIPT ION [facility] Jun 04, 2017 [id number] QUENTIN DENNY PATIENT CAREMARK PRESCRIPT ION [facility] ANDLUIZ RS Feb 19, 2017 [id number] DENISHA QUENTIN PATIENT CAREMARK PRESCRIPT ION [facility] Feb 19, 2017 [id number] QUENTIN DENNY PATIENT CAREMARK PRESCRIPT ION [facility] Feb 19, 2017 [phone] QUENTIN DENNY PATIENT CAREMARK PRESCRIPT ION RASHEEDA ANDLUIZ RS Aug 19, 2005 [id number] QUENTIN DENNY PATIENT CAREMARK PRESCRIPT ION RASHEEDA ANDLUIZ RS Aug 19, 2005 [id number] QUENTIN DENNY PATIENT 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AN POINT OF SERVICE [facility] Feb 19, 2017 [id number] [phone] QUENTIN DENNY PATIENT 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AN POINT OF SERVICE [facility] Feb 19, 2017 [id number] QUENTIN DENNY PATIENT 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IT PLAN POINT OF SERVICE [facility] Feb 19, 2017 [id number] QUENTIN DENNY PATIENT NAMHANDLE RS BENEFIT PLAN POINT OF SERVICE [facility] Jun 04, 2017 [id number] QUENTIN DENNY PATIENT NAMHANDLE RS BENEFIT PLAN PREFERRED PROVIDER ORGANIZAT ION (PPO) STAND TRACI Aug 19, 2005 [id number] [phone] QUENTIN DENNY PATIENT MEDICARE ([facility]) MEDICARE () PART B Apr 19, 2013 PART B [id number] [phone] [id number] QUENTIN DENNY PATIENT MEDICARE ([facility]) MEDICARE () PART B Apr 19, 2013 PART B [id number] QUENTIN DENNY PATIENT MEDICARE ([facility]) MEDICARE () PART B Apr 19, 2013 PART B [id number] QUENTIN DENNY PATIENT MEDICARE ([facility]) MEDICARE () PART B Apr 19, 2013 PART B [id number] QUENTIN DENNY PATIENT MEDICARE ([facility]) MEDICARE () PART A Mar 22, 2013 PART A [id number] QUENTIN DENNY PATIENT MEDICARE (WNR) MEDICARE (M) PART A Mar 22, 2013 PART A [id number] [phone] QUENTIN DENNY PATIENT MEDICARE (WNR) MEDICARE (M) PART A Mar 22, 2013 PART A [id number] QUENTIN DENNY PATIENT MEDICARE (WNR) MEDICARE (M) PART A Mar 22, 2013 PART A [id number] QUENTIN DENNY PATIENT MEDICARE (WNR) MEDICARE (M) PART A Mar 22, 2013 PART A [id number] QUENTIN DENNY PATIENT MEDICARE (WNR) MEDICARE (M) PART B Mar 22, 2013 PART B [id number] [phone] QUENTIN DENNY PATIENT Selected Encounter This section includes the information on record at [place] for the Encounter. Date/Time Encounter Type Encounter Description Reason Provider Source Jan 11, 2024 08:00 AM OFFICE O/P EST MOD 30 MIN PODIATRY ICD-10-CM S92.325A Nondisp fx of second metatarsal bone, left foot, THA Mendez [facility] Encounter Template Text not used by [place] Assessments - Encounter Diagnoses This section includes the primary and secondary diagnoses documented for the Encounter. Date/Time Primary/Secondary Diagnosis Diagnosis Name Provider Source Feb 04, 2024 07:28 AM PRIMARY Nondisp fx of second metatarsal bone, left foot, THA Mendez [place] [facility] Feb 04, 2024 07:28 AM SECONDARY Disp fx of fifth metatarsal bone, left foot, THA Mendez [place] [facility] Feb 04, 2024 07:28 AM SECONDARY Disp fx of fourth metatarsal bone, left foot, THA Mendez [place] [facility] Feb 04, 2024 07:28 AM SECONDARY Nondisp fx of third metatarsal bone, left foot, THA Mendez [place] [facility] Plan of Treatment: Future Appointments (+ 6 months) and Future Tests (+/- 45 days) The Plan of Treatment section includes future care activities for the patient [facility] [place] [facility] This section includes future appointments and future orders which are active, pending or scheduled. Future Appointments This section includes appointments that were scheduled to occur 6 months from the date of the Encounter, up to a maximum of 20 appointments. The data comes from all [place] treatment facilities. Appointment Date/Time Appointment Type Appointme nt Facility Name Jan 31, 2024 01:30 PM AMBULATORY - MEDICINE ND C [facility] Feb 26, 2024 09:00 AM AMBULATORY - MEDICINE ND C [facility] Apr 04, 2024 09:30 AM [facility] Apr 24, 2024 10:00 AM [facility] May 05, 2024 02:00 PM [facility] May 06, 2024 11:00 AM AMBULATORY - MEDICINE ND C [facility] May 16, 2024 10:30 AM [facility] May 23, 2024 09:00 AM [facility] May 23, 2024 01:30 PM [facility] May 30, 2024 09:30 AM AMBULATORY - REHAB [facility] Jun 06, 2024 09:30 AM AMBULATORY - REHAB [facility] Vital Signs: All taken on the encounter date This section contains inpatient and outpatient Vital Signs collected on the date of the Encounter. Date/Time Temperature Pulse Blood Pressure Respiratory Rate SP02 Pain Height Weight Body Mass Index Source Jan 11, 2024 07:58 AM 97.3 96 138/92 96 3 [facility] Social History: Smoking Status (Most current) and Tobacco Use (All prior to encounter date) This section includes the most current, and the historical, smoking and tobacco- related health factors from the [place] facility where the Encounter took place. Current Smoking Status This section includes the most current smoking, or tobacco-related health factor, from the [place] facility where the Encounter took place. Date/Time Current Smoking Status Comment James capps Apr 24, 2023 10:30 AM [place]-TOBACCO FORMER USER [facility] Tobacco Use History This section includes a history of the smoking, or tobacco-related health factors, that were collected on or before the date of the Encounter. The data comes from the [place] facility where the Encounter took place. Date/Time Smoking Status/Tobac co Use Comment Facility Apr 24, 2023 10:30 AM VA-TOBACCO QUIT 15 YRS OR MORE ND [facility] Mar 22, 2022 11:00 AM VA-TOBACCO FORMER USER [place] [facility] Mar 22, 2022 11:00 AM VA-TOBACCO QUIT 15 YRS OR MORE ND [facility] Oct 21, 2020 09:30 AM VA-TOBACCO NEVER USED ND [facility] Nov 04, 2019 08:30 AM VA-TOBACCO FORMER USER ND [facility] Nov 04, 2019 08:30 AM VA-TOBACCO QUIT 15 YRS OR MORE ND [facility] May 06, 2018 08:27 AM VA-TOBACCO FORMER USER [place] [facility] May 06, 2018 08:27 AM VA-TOBACCO QUIT 15 YRS OR MORE [place] [facility] Nov 05, 2017 09:54 AM QUIT TOBACCO USE > 7 YEARS AGO ND [facility] June 28, 2016 09:36 AM QUIT TOBACCO USE > 7 YEARS AGO ND [facility] Mar 15, 2015 10:54 AM LIFETIME NON-TOBACCO USER quit cigs. 1998 [place] [facility] Nov 14, 2004 02:40 PM HISTORY OF SMOKING ND [facility] May 18, 2003 09:05 AM HISTORY OF SMOKING quit August 1998 [place] [facility] Jun 09, 2002 08:40 AM HISTORY OF SMOKING quit 99. ND [facility] Jun 09, 2002 08:40 AM QUIT TOBACCO USE > 7 YEARS AGO ND [facility] Jun 10, 2001 08:50 AM HISTORY OF SMOKING quit 1998 [place] [facility] Jun 10, 2001 08:50 AM QUIT TOBACCO USE 1-7 [facility]ARS AGO [facility] Jun 08, 2000 02:55 PM HISTORY OF SMOKING quit 2yrs ago [facility] Radiology Reports: +/- 30 days of the encounter Radiology Reports For cases when an order for radiology services may have been completed prior to the date of the Encounter, the report list includes the Radiology Reports that were completed up to 30 days before dateof the Encounter. For cases when an order for radiology services may have been completed after the date of the Encounter, the report list also includes the Radiology Reports that were completed up to30 days after date of the Encounter. The data comes from all [place] treatment facilities. Date/Time Radiology Report Provider Source Jan 11, 2024 08:21 AM FOOT 3 OR MORE VIEWS(LEFT): QUENTIN DENNY [id number] -[id number] M Exm Date: JAN 11, 2024@08:21 Req Phys: THA STRE[address] Loc: CWM/NO/PODIATRY A (Req'g Loc) Img Loc: [facility] 1 Service: [place] [address] (Case [id number] COMPLETE) FOOT 3 OR MORE VIEWS(LEFT) (RAD Detailed) CPT:77162 CPT Modifiers : LT LEFT SIDE Reason for Study: pain basefiufth met absent trauma Clinical History: Report Status: Verified Date Reported: JAN 11, 2024 Date Verified: JAN 11, 2024 Finance Controller E-Sig:/ES/KADEN ZAMORA JR Report: Study: Weight-bearing AP, lateral, and oblique views of the left foot. Comparison: None. Findings: No soft tissue swelling or radiopaque foreign body is identified. There are healed fractures of the second through fifth metatarsal bones with likely posttraumatic pes planus. The foot joint spaces appear normal and well-maintained. No acute bony abnormality is seen. The bony mineralization appears normal. Impression: Healed fractures of the second through fifth metatarsals, as described above. Primary Diagnostic Code: No immediate attention required Primary Interpreting Staff: KADEN ZAMORA JR, Radiologist (Finance Controller) /KADEN ROBB JR [facility] Encounter Notes: All associated encounter notes This section contains the clinical notes associated to the Encounter. Date/Time Encounter Note(s) Provider Source Jan 11, 2024 01:54 PM ADDENDUM: LOCAL TITLE: Addendum STANDARD TITLE: ADDENDUM DATE OF NOTE: JAN 11, 2024@13:54:04 ENTRY DATE: JAN 11, 2024@13:54:04 AUTHOR: THA STREET COSIGNER: URGENCY: STATUS: COMPLETED Further chart review reveals elevated parathyroid hormone serum 106 (HIGH NORMAL IS 65). Blood calcium levels were essentially normal both in July 2023. But given evidence of multiple stress fractures of the foot, would recommend review evaluation by endocrinology. /noe/ THA STREET DPM PODIATRY ATTENDING Signed: 01/11/2024 13:56 Receipt Acknowledged By: 01/12/2024 07:25 /noe/ SUKUMAR ASHER MD STAFF PHYSICIAN 01/11/2024 14:00 /noe/ TAMRA HINSON D.O. PHYSICIAN --- Original Document --- 01/11/24 PODIATRY NOTE: Podiatry High Risk Foot Encounter [facility] Clinic provider: Tha Street DPM Date: JAN 11, 2024 QUENTIN DENNY [id number] Mar 73 [employer] FROM Apr TO Jan Primary Care:TAMRA HINSON Unscheduled visit: Patient is a 73-year-old male with type 2 diabetes history of peripheral vascular disease and history of iliofemoral bypass right to left a year and a half ago was last seen in July or August doing well. Called earlier this week with report of pain in the lateral side of his left foot on and off for the past month wonders if he broke it scheduled for appointment this morning. Subjective: Patient reports good days and bad days, pain is located at the base of the fifth metatarsal on exam on the left. Patient reports no ecchymosis, no inversion injuries within the past 90 to 120 days, noting onset of symptoms approximately 30 to 45 days preceding this appointment. No history of foot or ankle trauma or foot surgery in the past. Patient denies ecchymosis but appreciates some swelling. No open wounds or sores noted by patient or on exam. Diabetic/ HRF/ PVD LE History: [X] pvd [X] pvd interventions [ ] neuropathy [ ] meds: [ ] wound active [ ] infection active [ ] wound history yes [ ] amputation hx [ ] deformity [ ] charcot [ ] surgical deformity intervention PMH list CPRS: Active problems - Computerized Problem List is the source for the followin. Iron deficiency anemia 2. Bilateral osteoarthritis of knees 3. Carotid artery stenosis 4. Raynaud's phenomenon 5. Esophageal stricture 6. Type 2 diabetes mellitus (SNOMED CT 98745982) 7. Endoscopy abnormal 8. Chronic obstructive lung disease (SNOMED CT 80128875) 9. Diffuse spasm of esophagus (SNOMED CT 28618310) 10. Chronic Renal disease 11. Hyperlipidemia (SNOMED CT 52399036) 12. Coronary Artery Disease * 13. Psoriasis * 14. Male erectile disorder 15. Prostate Cancer 16. Essential hypertension (SNOMED CT 82621884) Active Out Patient medications: Active Outpatient Medications (including Supplies): Active Outpatient Medications Status 1) ASCORBIC ACID 500MG TAB TAKE ONE TABLET BY MOUTH ONCE ACTIVE (S) DAILY FOR VITAMIN/NUTRITION SUPPLEMENT 2) CARBOXYMETHYLCELLULOSE NA 0.5% OPH SOLN INSTILL 1 ACTIVE DROP INTO EACH EYE FOUR TIMES A DAY FOR DRY EYE 3) CLOTRIMAZOLE 1% TOP SOLN APPLY 1 DROP TOPICALLY ONCE ACTIVE (S) DAILY FOR FUNGAL INFECTION. APPLY WHEN NAIL IS DRY (NOT AFTER SHOWER/BATH). USE FOR AT LEAST 9-12 MONTHS. REGULAR NAIL CARE IS RECOMMENDED 4) EMPAGLIFLOZIN 10MG TAB TAKE ONE TABLET BY MOUTH ONCE ACTIVE (S) DAILY FOR TYPE 2 DIABETES MELLITUS 5) FAMOTIDINE 40MG TAB TAKE ONE TABLET BY MOUTH ONCE ACTIVE (S) DAILY FOR STOMACH ACID 6) FERROUS GLUCONATE 324MG TAB TAKE TWO TABLETS BY MOUTH ACTIVE ONCE DAILY TO SUPPLEMENT IRON 7) HYDROPHILIC (EQV EUCERIN) TOP CREAM APPLY A SMALL ACTIVE AMOUNT TOPICALLY ONCE DAILY TO DRY, CRACKED SKIN ON FEET 8) INCONT LINER DEPEND GUARDS USE 1 PAD TOPICALLY 8 ACTIVE TIMES/DAY 9) LANCET,SOFTCLIX USE 1 LANCET DIRECTED ONCE DAILY ACTIVE NEEDED TO TEST BLOOD SUGAR 10) MULTIVIT/OPHTH AREDS2/LUTE/ZEAX CAP/TAB TAKE 1 ACTIVE CAPSULE BY MOUTH TWICE DAILY FOR VITAMIN SUPPLEMENTATION IN THE MORNING AND EVENING, WITH FOOD 11) PANTOPRAZOLE NA 40MG EC TAB TAKE ONE TABLET BY MOUTH ACTIVE (S) TWICE DAILY FOR EXCESSIVE PRODUCTION OF STOMACH ACID 12) TADALAFIL 20MG TAB TAKE ONE TABLET BY MOUTH NEEDED ACTIVE Active Non-VA Medications Status 1) Non-VA ALBUTEROL 3/IPRATROP 0.5MG/3ML INHL 3ML [...] DOSE) BY MOUTH ONCE DAILY 9) Non-VA TRAMADOL HCL 50MG TAB 50MG BY MOUTH ACTIVE 21 Total Medications Imaging reports: Lab Data: CREATININE-EGFR 08/07/23 14:23 1.58 H 04/04/23 10:42 1.44 H No Data Available for EGFR 1 yr HEMOGLOBIN A1C TREND Collection DT Spec HGBA1c 10/19/2023 09:00 BLOOD 6.0 H 10/04/2022 07:33 BLOOD 6.0 H 03/09/2022 08:25 BLOOD 6.8 H 09/05/2021 07:39 BLOOD 6.5 H 03/01/2021 08:40 BLOOD 6.3 H ALBUMIN Collection DT Specimen Test Name Result Units Ref Range 08/07/2023 14:23 SERUM ALBUMIN 4.1 g/dL 3.5 - 5.0 BMI:BMI: 24.4 PE:General: Well-appearing, 73-year-old male awake alert oriented x 3 independently ambulatory. Casually but neatly dressed pleasant cooperative. Good hygiene. Vascular exam: biphasic DP PT At Neuro exam: Unremarkable Musculoskeletal exam: -No deformity present -Lateral foot with faint amount of edema no erythema no ecchymosis -With foot everted against resistance: Palpable pain on palpation at the insertion of the peroneus brevis tendon, with some onset of pain in the preceding 1 cm of tendon. No palpable bony abnormality. Movement of the fifth metatarsal to the base is 1 consistent unified motion with no clicking or suspicion for fracture. -Ligament testing unremarkable. -No calluses or high pressure lesions -No fissures or splits in skin. Footwear: In good repair with appropriate insert FOOT 3 OR MORE VIEWS(LEFT) Exm Date: JAN 11, 2024@08:21 Req Phys: THA STREET Pat Loc: CWM/NO/PODIATRY A (Req'g Loc) Img Loc: [facility] 1 Service: Unknown [place] [facility] [place] [address] (Case [id number] CALLED F) FOOT 3 OR MORE VIEWS(LEFT) (RAD Detailed) CPT:51032 CPT Modifiers : LT LEFT SIDE Reason for Study: pain basefiufth met absent trauma Clinical History: Report Status: Verified Date Reported: JAN 11, 2024 Date Verified: JAN 11, 2024 Finance Controller E-Sig:/ES/KADEN ZAMORA JR Report: Study: Weight-bearing AP, lateral, and oblique views of the left foot. Comparison: None. Findings: No soft tissue swelling or radiopaque foreign body is identified. There are healed fractures of the second through fifth metatarsal bones with likely posttraumatic pes planus. The foot joint spaces appear normal and well-maintained. No acute bony abnormality is seen. The bony mineralization appears normal. Impression: Healed fractures of the second through fifth metatarsals, as described above. Primary Diagnostic Code: No immediate attention required Primary Interpreting Staff: KADEN ZAMORA JR, Radiologist (Finance Controller) /KIRK PAVE: 2 Impression: -Multiple healing stress fractures 2 through 4 as described above all healing well. Stable for walking -May have a little bit of peroneal tendinitis. Patient states this is improved. Plan: -Bearing restrictions except for heavy lifting pushing or pulling, for long hiking days etc. no high impact aerobics . -Follow-up January 30 reassess. Recall: 4 01/31/2024 Return sooner if any clinical signs of infection such as redness, swelling drainage fever chills nausea , or go to nearest hospital emergency / urgent care for evaluation. -As part of the service the pertinent primary care, specialty care and urgent care notes have been reviewed as well as the patient's medication list, problem list, and current imaging as well as past imaging, laboratory data and other pertinent contributory consults. -All new and discontinued medications have been discussed in detail with the patient and or caregiver, including indications for additions and deletions, as well as possible side effects, interactions as foreseen, and risk of not taking as prescribed If applicable, the patient was advised clearly on application of wound care agents how to apply and when to apply. The patient was able to recitethis information back to the prescriber with good understanding and agreed to the plan of care as indicated above. -Plan of care discuss with the patient and or caregiver, including medical decision making which includes discussion of abnormal lab results, imaging and other diagnostic modalities as well as results of the physical exam and retail client solutions consultant opinions and recommendations as sought. Alternatives to surgery or outlined care above as appropriate have also been discussed. -The patient/ caregiver has displayed good understanding of above and with no further questions at this time. Patient is aware of next appointment and agrees to follow-up interval. Patient agrees to seek sooner follow up if any irregular events occur in between such as cardinal signs of infection, increased pain or deformity. -The on this visit was given information etaskr service and encouraged to enroll if not already having done so. /noe/ THA STREET DPM PODIATRY ATTENDING Signed: 01/11/2024 13:[address] [place] [facility] Jan 11, 2024 08:14 AM PODIATRY NOTE: LOCAL TITLE: PODIATRY NOTE STANDARD TITLE: PODIATRY NOTE DATE OF NOTE: JAN 11, 2024@08:14 ENTRY DATE: JAN 11, 2024@08:14:12 AUTHOR: THA STREET EXP COSIGNER: URGENCY: STATUS: COMPLETED PODIATRY NOTE Has ADDENDA Podiatry High Risk Foot Encounter [facility] Clinic provider: Tha Street DPM Date: JAN 11, 2024 QUENTIN DENNY [id number] [employer] FROM Apr TO Jan Primary Care:TAMRA HINSON Unscheduled visit: Patient is a 73-year-old male with type 2 diabetes history of peripheral vascular disease and history of iliofemoral bypass right to left a year and a half ago was last seen in July or August doing well. Called earlier this week with report of pain in the lateral side of his left foot on and off for the past month wonders if he broke it scheduled for appointment this morning. Subjective: Patient reports good days and bad days, pain is located at the base of the fifth metatarsal on exam on the left. Patient reports no ecchymosis, no inversion injuries within the past 90 to 120 days, noting onset of symptoms approximately 30 to 45 days preceding this appointment. No history of foot or ankle trauma or foot surgery in the past. Patient denies ecchymosis but appreciates some swelling. No open wounds or sores noted by patient or on exam. Diabetic/ HRF/ PVD LE History: [X] pvd [X] pvd interventions [ ] neuropathy [ ] meds: [ ] wound active [ ] infection active [ ] wound history yes [ ] amputation hx [ ] deformity [ ] charcot [ ] surgical deformity intervention PMH list CPRS: Active problems - Computerized Problem List is the source for the followin. Iron deficiency anemia 2. Bilateral osteoarthritis of knees 3. Carotid artery stenosis 4. Raynaud's phenomenon 5. Esophageal stricture 6. Type 2 diabetes mellitus (SNOMED CT 77011872) 7. Endoscopy abnormal 8. Chronic obstructive lung disease (SNOMED CT 80011065) 9. Diffuse spasm of esophagus (SNOMED CT 24743789) 10. Chronic Renal disease 11. Hyperlipidemia (SNOMED CT 16785737) 12. Coronary Artery Disease * 13. Psoriasis * 14. Male erectile disorder 15. Prostate Cancer 16. Essential hypertension (SNOMED CT 75281626) Active Out Patient medications: Active Outpatient Medications (including Supplies): Active Outpatient Medications Status 1) ASCORBIC ACID 500MG TAB TAKE ONE TABLET BY MOUTH ONCE ACTIVE (S) DAILY FOR VITAMIN/NUTRITION SUPPLEMENT 2) CARBOXYMETHYLCELLULOSE NA 0.5% OPH SOLN INSTILL 1 ACTIVE DROP INTO EACH EYE FOUR TIMES A DAY FOR DRY EYE 3) CLOTRIMAZOLE 1% TOP SOLN APPLY 1 DROP TOPICALLY ONCE ACTIVE (S) DAILY FOR FUNGAL INFECTION. APPLY WHEN NAIL IS DRY (NOT AFTER SHOWER/BATH). USE FOR AT LEAST 9-12 MONTHS. REGULAR NAIL CARE IS RECOMMENDED 4) EMPAGLIFLOZIN 10MG TAB TAKE ONE TABLET BY MOUTH ONCE ACTIVE (S) DAILY FOR TYPE 2 DIABETES MELLITUS 5) FAMOTIDINE 40MG TAB TAKE ONE TABLET BY MOUTH ONCE ACTIVE (S) DAILY FOR STOMACH ACID 6) FERROUS GLUCONATE 324MG TAB TAKE TWO TABLETS BY MOUTH ACTIVE ONCE DAILY TO SUPPLEMENT IRON 7) HYDROPHILIC (EQV EUCERIN) TOP CREAM APPLY A SMALL ACTIVE AMOUNT TOPICALLY ONCE DAILY TO DRY, CRACKED SKIN ON FEET 8) INCONT LINER DEPEND GUARDS USE 1 PAD TOPICALLY 8 ACTIVE TIMES/DAY 9) LANCET,SOFTCLIX USE 1 LANCET DIRECTED ONCE DAILY ACTIVE NEEDED TO TEST BLOOD SUGAR 10) MULTIVIT/OPHTH AREDS2/LUTE/ZEAX CAP/TAB TAKE 1 ACTIVE CAPSULE BY MOUTH TWICE DAILY FOR VITAMIN SUPPLEMENTATION IN THE MORNING AND EVENING, WITH FOOD 11) PANTOPRAZOLE NA 40MG EC TAB TAKE ONE TABLET BY MOUTH ACTIVE (S) TWICE DAILY FOR EXCESSIVE PRODUCTION OF STOMACH ACID 12) TADALAFIL 20MG TAB TAKE ONE TABLET BY MOUTH NEEDED ACTIVE Active Non-VA Medications Status 1) Non-VA ALBUTEROL 3/IPRATROP 0.5MG/3ML INHL 3ML [...] DOSE) BY MOUTH ONCE DAILY 9) Non-VA TRAMADOL HCL 50MG TAB 50MG BY MOUTH ACTIVE 21 Total Medications Imaging reports: Lab Data: CREATININE-EGFR 08/07/23 14:23 1.58 H 04/04/23 10:42 1.44 H No Data Available for EGFR 1 yr HEMOGLOBIN A1C TREND Collection DT Spec HGBA1c 10/19/2023 09:00 BLOOD 6.0 H 10/04/2022 07:33 BLOOD 6.0 H 03/09/2022 08:25 BLOOD 6.8 H 09/05/2021 07:39 BLOOD 6.5 H 03/01/2021 08:40 BLOOD 6.3 H ALBUMIN Collection DT Specimen Test Name Result Units Ref Range 08/07/2023 14:23 SERUM ALBUMIN 4.1 g/dL 3.5 - 5.0 BMI:BMI: 24.4 PE:General: Well-appearing, 73-year-old male awake alert oriented x 3 independently ambulatory. Casually but neatly dressed pleasant cooperative. Good hygiene. Vascular exam: biphasic DP PT At Neuro exam: Unremarkable Musculoskeletal exam: -No deformity present -Lateral foot with faint amount of edema no erythema no ecchymosis -With foot everted against resistance: Palpable pain on palpation at the insertion of the peroneus brevis tendon, with some onset of pain in the preceding 1 cm of tendon. No palpable bony abnormality. Movement of the fifth metatarsal to the base is 1 consistent unified motion with no clicking or suspicion for fracture. -Ligament testing unremarkable. -No calluses or high pressure lesions -No fissures or splits in skin. Footwear: In good repair with appropriate insert FOOT 3 OR MORE VIEWS(LEFT) Exm Date: JAN 11, 2024@08:21 Req Phys: [facility] [address] Loc: [facility]/NO/PODIATRY A (Req'g Loc) Img Loc: [facility]/BUILDING 1 Service: Unknown [facility] [place] [address] (Case [id number] CALLED F) FOOT 3 OR MORE VIEWS(LEFT) (RAD Detailed) CPT:50840 CPT Modifiers : LT LEFT SIDE Reason for Study: pain basefiufth met absent trauma Clinical History: Report Status: Verified Date Reported: JAN 11, 2024 Date Verified: JAN 11, 2024 Finance Controller E-Sig:/ES/KADEN ZAMORA JR Report: Study: Weight-bearing AP, lateral, and oblique views of the left foot. Comparison: None. Findings: No soft tissue swelling or radiopaque foreign body is identified. There are healed fractures of the second through fifth metatarsal bones with likely posttraumatic pes planus. The foot joint spaces appear normal and well-maintained. No acute bony abnormality is seen. The bony mineralization appears normal. Impression: Healed fractures of the second through fifth metatarsals, as described above. Primary Diagnostic Code: No immediate attention required Primary Interpreting Staff: KADEN ZAMORA JR, Radiologist (Finance Controller) /KIRK PAVE: 2 Impression: -Multiple healing stress fractures 2 through 4 as described above all healing well. Stable for walking -May have a little bit of peroneal tendinitis. Patient states this is improved. Plan: -Bearing restrictions except for heavy lifting pushing or pulling, for long hiking days etc. no high impact aerobics . -Follow-up January 30 reassess. Recall: 4 01/31/2024 Return sooner if any clinical signs of infection such as redness, swelling drainage fever chills nausea , or go to nearest hospital emergency / urgent care for evaluation. -As part of the service the pertinent primary care, specialty care and urgent care notes have been reviewed as well as the patient's medication list, problem list, and current imaging as well as past imaging, laboratory data and other pertinent contributory consults. -All new and discontinued medications have been discussed in detail with the patient and or caregiver, including indications for additions and deletions, as well as possible side effects, interactions as foreseen, and risk of not taking as prescribed If applicable, the patient was advised clearly on application of wound care agents how to apply and when to apply. The patient was able to recitethis information back to the prescriber with good understanding and agreed to the plan of care as indicated above. -Plan of care discuss with the patient and or caregiver, including medical decision making which includes discussion of abnormal lab results, imaging and other diagnostic modalities as well as results of the physical exam and retail client solutions consultant opinions and recommendations as sought. Alternatives to surgery or outlined care above as appropriate have also been discussed. -The patient/ caregiver has displayed good understanding of above and with no further questions at this time. Patient is aware of next appointment and agrees to follow-up interval. Patient agrees to seek sooner follow up if any irregular events occur in between such as cardinal signs of infection, increased pain or deformity. -The on this visit was given information etaskr service and encouraged to enroll if not already having done so. /noe/ [facility] DPM PODIATRY ATTENDING Signed: 01/11/2024 13:50 01/11/2024 ADDENDUM STATUS: COMPLETED Further chart review reveals elevated parathyroid hormone serum 106 (HIGH NORMAL IS 65). Blood calcium levels were essentially normal both in July 2023. But given evidence of multiple stress fractures of the foot, would recommend review evaluation by endocrinology. /jose STREET DPM PODIATRY ATTENDING Signed: 01/11/2024 13:56 Receipt Acknowledged By: * AWAITING SIGNATURE * SUKUMAR ASHER * AWAITING SIGNATURE * [facility] HINSON [facility]
--- OUTSIDE RECORDS SUMMARY | 2024-01-31 09:30 | XMS_ITS ---
Author Name [facility] Organization [facility] [place] Address [address] [place] [address] Care Team Providers Care C Software Developer Name Role Phone TAMRA HINSON Primary Care Provider [facility] Insurance Providers: All historical and [...] POINT OF SERVICE [facility]BP Jun 04, 2017 [id number] DENISHA QUENTIN PATIENT AETNA POINT OF SERVICE [facility]BP CHOI E Feb 19, 2017 [id number] DENISHA QUENTIN PATIENT CAREMARK PRESCRIPT ION [facility]BP Jun 04, 2017 [id number] [phone] QUENTIN DENNY PATIENT CAREMARK PRESCRIPT ION [facility] TRICIA RS Feb 19, 2017 [id number] DENISHA QUENTIN PATIENT CAREMARK PRESCRIPT ION [facility] Feb 19, 2017 [id number] [phone] QUENTIN DENNY PATIENT CAREMARK PRESCRIPT ION [facility]BP Feb 19, 2017 [id number] [phone] QUENTIN DENNY PATIENT CAREMARK PRESCRIPT ION RASHEEDA CLARKE RS Aug 19, 2005 [id number] QUENTIN DENNY PATIENT CAREMARK PRESCRIPT ION RASHEEDA ANDLUIZ RS Aug 19, 2005 [id number] [phone] QUENTIN DENNY PATIENT 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 PLAN POINT OF SERVICE MHBP Feb 19, 2017 [id number] [phone] [id number] [phone] QUENTIN DENNY PATIENT 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 BENEFIT PLAN POINT OF SERVICE MHBP Feb 19, 2017 [id number] [phone] QUENTIN DENNY PATIENT 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 BENEFIT PLAN POINT OF SERVICE MHBP Feb 19, 2017 [id number] [phone] QUENTIN DENNY PATIENT NAMHANDLUIZ RS BENEFIT PLAN POINT OF SERVICE [facility]BP Jun 04, 2017 [id number] [phone] QUENTIN DENNY PATIENT NAMHANDLE RS BENEFIT PLAN PREFERRED PROVIDER ORGANIZAT ION (PPO) STAND TRACI Aug 19, 2005 [id number] [phone] QUENTIN DENNY PATIENT MEDICARE ([facility]) MEDICARE () PART B Apr 19, 2013 PART B [id number] QUENTIN DENNY PATIENT MEDICARE ([facility]) MEDICARE () PART B Apr 19, 2013 PART B [id number] QUENTIN DENNY PATIENT MEDICARE ([facility]) MEDICARE () PART B Apr 19, 2013 PART B [id number] QUENTIN DENNY PATIENT MEDICARE ([facility]) MEDICARE () PART B Apr 19, 2013 PART B [id number] QUENTIN DENNY PATIENT MEDICARE ([facility]) MEDICARE () PART A Mar 22, 2013 PART A [id number] QUENTIN DENNY PATIENT MEDICARE (WNR) MEDICARE (M) PART A Mar 22, 2013 PART A [id number] QUENTIN DENNY PATIENT MEDICARE (WNR) MEDICARE (M) PART A Mar 22, 2013 PART A [id number] [id number] QUENTIN DENNY PATIENT MEDICARE (WNR) MEDICARE (M) PART A Mar 22, 2013 PART A [id number] QUENTIN DENNY PATIENT MEDICARE (WNR) MEDICARE (M) PART A Mar 22, 2013 PART A [id number] QUENTIN DENNY PATIENT MEDICARE (WNR) MEDICARE (M) PART B Mar 22, 2013 PART B [id number] [phone] QUENTIN DENNY PATIENT Selected Encounter This section includes the information on record at DC for the Encounter. Date/Time Encounter Type Encounter Description Reason Provider Source Jan 31, 2024 01:30 PM OFFICE O/P EST LOW 20 MIN PODIATRY ICD-10-CM S92.302D Fx unsp metatarsal bone(s), l foot, subs for fx w THA Kilgore Jarod Encounter Template Text not used by DC Assessments - Encounter Diagnoses This section includes the primary and secondary diagnoses documented for the Encounter. 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 This section includes future appointments and future orders which are active, pending or scheduled. Future Appointments This section includes appointments that were scheduled to occur 6 months from the date of the Encounter, up to a maximum of 20 appointments. The data comes from all DC treatment facilities. Appointment Date/Time Appointment Type Appointme nt Facility Name Feb 26, 2024 09:00 AM AMBULATORY - MEDICINE DC C [facility] [place] [facility] Apr 04, 2024 09:30 AM AMBULATORY - [facility]ICIN [facility] Apr 24, 2024 10:00 AM AMBULATORY - MEDICINE DC C [facility] [place] [facility] May 05, 2024 02:00 PM AMBULATORY - REHAB MEDICIN [facility] May 06, 2024 11:00 AM AMBULATORY - MEDICINE DC C [facility] [place] [facility] May 16, 2024 10:30 AM AMBULATORY - REHAB MEDICIN [facility] May 23, 2024 09:00 AM AMBULATORY - REHAB MEDICIN [facility] May 23, 2024 01:30 PM AMBULATORY - SURGERY DC CN [facility] [place] [facility] May 30, 2024 09:30 [facility] Jun 06, 2024 09:30 [facility] Jul 23, 2024 09:30 AM [facility] Lab Results: +/- 30 days of the encounter This section includes the Chemistry and Hematology Lab Results on record with DC for the patient. Radiology Reports and Pathology Reports are provided separately, in subsequent sections. Lab Results This section contains the Chemistry/Hematology Results that were resulted 30 days before or 30 daysafter the date of the Encounter. Date/Time Source Result Type Result - Unit Interpretation Reference Range Specimen Type Comment Feb 14, 2024 09:02 AM [facility] MICROALBUMIN CREATININE RATIO PANEL URINE Spe cimen Type: URINE No comment entered. Ordering Provider: VAIBHAV BYRNES Report Released Date/Time: Aug 15, 2023 09:18 AM [facility] [address] [address] Performing Lab: [address] [place] [address] MICROALBUMIN/CREATININE RATIO 186.3 mg/g H 0-29.9 MICROALBUMIN,QUANTITATIVE 5.5 mg/dL RR U NAVAIL CREATININE URINE 29.53 mg/dL Feb 14, 2024 08:[address] [facility] FERRITIN SERUM Specimen Type: SERUM No comment entered. Ordering Provider: SNOW BYRNES Report Released Date/Time: Aug 15, 2023 09:18 AM Reporting Lab[facility] [address] [address] Performing [facility] [address] [address] FERRITIN 81 ng/mL 20-300 Feb 14, 2024 08:[address] [facility] IRON & TIBC PANEL SERUM Specimen Type: SERUM No comment entered. Ordering Provider: SNOW BYRNES Report Released Date/Time: Aug 15, 2023 09:18 AM Reporting Lab: [facility] [address] [address] Performing Lab: [facility] [address] [address] TIBC 312 ug/dL 204-475 IRON 74 ug/dL 40-160 Transferrin Saturation 23.8 20.0-50.0 Transferrin (TRF) 236 mg/dL 200-360 Feb 14, 2024 08:50 AM [facility] CBC BLOOD Specimen Type: BLOOD No comment entered. Ordering Provider: SNOW BYRNES Report Released Date/Time: Aug 15, 2023 09:18 AM Reporting Lab: [facility] [address] [address] [facility]forming Lab[facility] [address] [address] WBC 7.79 10*3/uL 4.50-11.00 RBC 4.54 10*6/uL 4.23-5.66 HGB 13.8 g/dL 12.8-17 HCT 41.9 39.2-50.4 MCV 92.3 fL 82-99 MCHC 32.9 g/dL 30.8-35.1 PLT 177 10*3/uL 140-360 RDW-CV 14.9 12.0-16.0 MCH 30.4 pg 26.2-32.6 Feb 14, 2024 08:50 AM [facility] BASIC METABOLIC PANEL (non-fasting) SERUM Spe cimen Type: SERUM No comment entered. Ordering Provider: SNOW BYRNES Report Released Date/Time: Aug 15, 2023 09:18 AM Reporting Lab: [facility] [address] [facility] [address] Performing Lab: [facility] [address] [facility] [address] UREA NITROGEN 21 mg/dL 7-25 GLUCOSE 123 mg/dL H 65-100 SODIUM 141 mmol/L 135-145 POTASSIUM 4.1 mmol/L 3.5-5.0 CHLORIDE 105 mmol/L 100-110 CO2 26 meq/L 20-30 CREATININE, Serum 1.39 mg/dL 0.50-1.40 eGFR(CKD-EPI 2020) 53 mL/min L >60 Social History: Smoking Status (Most current) and Tobacco Use (All prior to encounter date) This section includes the most current, and the historical, smoking and tobacco- related health factors from the DC facility where the Encounter took place. Current Smoking Status This section includes the most current smoking, or tobacco-related health factor, from the DC facility where the Encounter took place. Date/Time Current Smoking Status Comment [facility] Apr 24, 2023 10:30 AM VA-TOBACCO FORMER USER [facility] Tobacco Use History This section includes a history of the smoking, or tobacco-related health factors, that were collected on or before the date of the Encounter. The data comes from the DC facility where the Encounter took place. Date/Time Smoking Status/Tobac co Use Comment Facility Apr 24, 2023 10:30 AM VA-TOBACCO QUIT 15 YRS OR MORE [facility] Mar 22, 2022 11:00 AM VA-TOBACCO FORMER USER [facility] Mar 22, 2022 11:00 AM VA-TOBACCO QUIT 15 YRS OR MORE [facility] Oct 21, 2020 09:30 AM VA-TOBACCO NEVER USED [facility] [place] [facility] Nov 04, 2019 08:30 AM VA-TOBACCO FORMER USER DC [facility]TR [facility] [place] [facility] Nov 04, 2019 08:30 AM VA-TOBACCO QUIT 15 YRS OR MORE [facility] [place] [facility] May 06, 2018 08:27 AM VA-TOBACCO FOR[facility] USER [facility] [place] [facility] May 06, 2018 08:27 AM VA-TOBACCO QUIT 15 YRS OR MORE [facility] [place] [facility] Nov 05, 2017 09:54 AM QUIT TOBACCO USE > 7 YEARS AGO [facility] [place] [facility] June 28, 2016 09:36 AM QUIT TOBACCO USE > 7 YEARS AGO [facility] [place] [facility] Mar 15, 2015 10:54 AM LIFETIME NON-TOBACCO USER quit cigs. [facility] [place] [facility] Nov 14, 2004 02:40 PM HISTORY OF SMO[facility] May 18, 2003 09:05 AM HISTORY OF SMOKING quit August 1998 [facility] Jun 09, 2002 08:40 AM HISTORY OF SMOKING quit 99. [facility] Jun 09, 2002 08:40 AM QUIT TOBACCO USE > 7 YEARS AGO [facility] [place] [facility] Jun 10, 2001 08:50 AM HISTORY OF SMOKING quit 1998 [facility] Jun 10, 2001 08:50 AM QUIT TOBACCO USE 1-7 YEARS AGO [facility] [place] [facility] Jun 08, 2000 02:55 PM HISTORY OF SMOKING quit [address] [facility] Radiology Reports: +/- 30 days of [...] the Encounter. The data comes from all [facility] treatment facilities. Date/Time Radiology Report Provider Source Jan 11, 2024 08:21 AM FOOT 3 OR MORE VIEWS(LEFT): QUENTIN DENNY [id number] M [facility] Date: JAN 11, 2024@08:21 Req Phys: THA [address]RE[address] Pat Loc: CWM/NO/PODIATRY A (Req'g Loc) Img Loc: [facility] 1 Service: [place] [address] (Case [id number] COMPLETE) FOOT 3 OR MORE VIEWS(LEFT) (RAD Detailed) CPT:68286 CPT Modifiers : LT LEFT SIDE Reason for Study: pain basefiufth met absent trauma Clinical History: Report Status: Verified Date Reported: JAN 11, 2024 Date Verified: JAN 11, 2024 Unarmed Security Officer E-Sig:/ES/KADEN ZAMORA JR Report: Study: Weight-bearing AP, [...] Primary Interpreting Staff: KADEN ZAMORA JR, Radiologist (Unarmed Security Officer) /KADEN ROBB JR [facility] Encounter Notes: All associated encounter notes This section contains the clinical notes associated to the Encounter. Date/Time Encounter Note(s) Provider Source Jan 31, 2024 02:00 PM PODIATRY NOTE: LOCAL TITLE: PODIATRY NOTE STANDARD TITLE: PODIATRY NOTE DATE OF NOTE: JAN 31, 2024@14:00 ENTRY DATE: JAN 31, 2024@14:00:08 AUTHOR: THA STRE[address] EXP COSIGNER: URGENCY: STATUS: COMPLETED Podiatry [facility] Follow up Provider: Tha Street Date: JAN 31, 2024 QUENTIN DENNY [address] [place], [place] [address] Mar 73 MALE [phone] PATIENT PHONE - Primary Care: TAMRA HINSON Follow up Visit Concern: Patient is a 73-year-old type II diabetic male with history of peripheral vascular disease and aortofemoral bypass right to left I believe however procedure was outside [facility] in details not available. Patient also with renal insufficiency chronic kidney disease. Patient has been seen approximately every 6 months for follow-up but presented in December with complaint of several weeks of pain in the left foot though at that point in time symptoms were improving significantly. Nevertheless x-rays were taken and evidence of multiple metatarsal stress fractures were identified in the healing stage with solid bone callus but not completely remodeled. Therefore fractures were at least less than 1-year-old and possibly only about 4 to 6 months old or younger. On exam otherwise patient did not display any localized swelling erythema or significant deformity. Patient was asked to come back today for follow-up in addition on deeper chart review it was identified that patient's parathyroid hormone was quite elevated though his calcium levels were normal and the radiology read suggested normal bone density on x-ray. Subjective: Patient reports doing well and is not having any pain or discomfort and also denies any symptoms of claudication pain. Hx:[employer] FROM Apr TO Jan Service connections:Service Connected Disabilities with % Eligibility: SC LESS THAN 50% VERIFIED Total S/C %: 0 SCARS 0% S/C Medical problems active: Active Problem Iron deficiency anemia D50.9 09/15/2021 YEE GAGNONED Bilateral osteoarthritis of knees M 03/03/2021 YEE GAGNON JAWED Carotid artery stenosis I65.22 05/06/2018 YEE GAGNON JAWED Raynaud's phenomenon R69. 04/30/2017 RANJEET GAGNONED JAWED Esophageal stricture K22.2 11/08/2015 YEE GAGNON JAWED Type 2 diabetes mellitus (SNOMED CT 11/08/2015 YEE GAGNON JAWHARVEY Endoscopy abnormal R69., Onset 06/05/29/2023 YEE GAGNON JAWED Chronic obstructive lung disease (S 11/08/2015 YEE GAGNON JAWED Diffuse spasm of esophagus (SNOMED 11/08/2015 YEE GAGNON JAWED Chronic Renal disease (ICD-9-CM 585 03/14/2010 YEE GAGNON JAWED Hyperlipidemia (SNOMED CT 43194785) 11/08/2015 YEE GAGNON JAWED Coronary Artery Disease * (ICD-9-CM 02/14/2012 YEE GAGNON Psoriasis * (ICD-9-CM 696.1) 696.1 02/14/2012 YEE GAGNON JAWED Male erectile disorder 302.72 02/14/2012 YEE GAGNON Prostate Cancer 185. 02/14/2012 YEE GAGNON Essential hypertension (SNOMED CT 5 11/08/2015 YEE GAGNON Active mediciation: Active Outpatient Medications (including Supplies): Active Outpatient Medications Status 1) ASCORBIC ACID 500MG TAB TAKE ONE TABLET BY MOUTH ONCE DAILY ACTIVE (S) FOR VITAMIN/NUTRITION SUPPLEMENT Indication: FOR INADEQUATE VITAMIN C 2) CARBOXYMETHYLCELLULOSE NA 0.5% OPH SOLN INSTILL 1 DROP INTO ACTIVE EACH EYE FOUR TIMES A DAY Indication: FOR DRY EYE 3) CLOTRIMAZOLE 1% TOP SOLN APPLY 1 DROP TOPICALLY ONCE DAILY ACTIVE (S) FOR FUNGAL INFECTION. APPLY WHEN NAIL IS DRY (NOT AFTER SHOWER/BATH). USE FOR AT LEAST 9-12 MONTHS. REGULAR NAIL CARE IS RECOMMENDED Indication: FOR FUNGAL INFECTION OF THE SKIN 4) EMPAGLIFLOZIN 10MG TAB TAKE ONE TABLET BY MOUTH ONCE DAILY ACTIVE (S) Indication: FOR TYPE 2 DIABETES MELLITUS 5) FAMOTIDINE 40MG TAB TAKE ONE TABLET BY MOUTH ONCE DAILY FOR ACTIVE (S) STOMACH ACID Indication: FOR GASTROESOPHAGEAL REFLUX DISEASE 6) FERROUS GLUCONATE 324MG TAB TAKE TWO TABLETS BY MOUTH ONCE ACTIVE DAILY Indication: TO SUPPLEMENT IRON 7) HYDROPHILIC (EQV EUCERIN) TOP CREAM APPLY A SMALL AMOUNT ACTIVE TOPICALLY ONCE DAILY TO DRY, CRACKED SKIN ON FEET Indication: FOR DRY SKIN 8) INCONT LINER DEPEND GUARDS USE 1 PAD TOPICALLY 8 TIMES/DAY ACTIVE 9) LANCET,SOFTCLIX USE 1 LANCET DIRECTED ONCE DAILY ACTIVE NEEDED TO TEST BLOOD SUGAR 10) MULTIVIT/OPHTH AREDS2/LUTE/ZEAX CAP/TAB TAKE 1 CAPSULE BY ACTIVE MOUTH TWICE DAILY IN THE MORNING AND EVENING, WITH FOOD Indication: FOR VITAMIN SUPPLEMENTATION 11) PANTOPRAZOLE NA 40MG EC TAB TAKE ONE TABLET BY MOUTH TWICE ACTIVE (S) DAILY Indication: FOR EXCESSIVE PRODUCTION OF STOMACH ACID 12) TADALAFIL 20MG TAB TAKE ONE TABLET BY MOUTH NEEDED ACTIVE Active Non-VA Medications Status 1) Non-VA ALBUTEROL 3/IPRATROP 0.5MG/3ML INHL 3ML 1 VIAL (3ML) ACTIVE IN NEBULIZER EVERY 6 HOURS 2) Non-VA AMLODIPINE BESYLATE 5MG TAB 5MG BY MOUTH ONCE DAILY ACTIVE 3) Non-VA ASPIRIN 81MG EC TAB 81MG BY MOUTH EVERY DAY ACTIVE 4) Non-VA ATORVASTATIN CALCIUM 80MG TAB 40MG BY MOUTH ONCE ACTIVE DAILY Indication: FOR HIGH CHOLESTEROL 5) Non-VA BECLOMETH 80MCG 120D BREATH ACTVTD INHL 2 PUFFS BY ACTIVE MOUTH TWICE DAILY 6) Non-VA CARVEDILOL 25MG TAB 25MG BY MOUTH TWICE DAILY ACTIVE Indication: FOR HIGH BLOOD PRESSURE 7) Non-VA MAGNESIUM OXIDE 420MG TAB 420MG BY MOUTH ONCE DAILY ACTIVE 8) Non-VA OLODATEROL/TIOTROP 2.5MCG/ACTUAT 60D INH 2 PUFFS (1 ACTIVE DOSE) BY MOUTH ONCE DAILY 9) Non-VA TRAMADOL HCL 50MG TAB 50MG BY MOUTH ACTIVE 21 Total Medications Allergies: Data on this list may not be complete. Please check [facility]. FACILITY ALLERGY/ADR -------- No Remote Allergy/ADR Data available for this patient [facility] PE: Well-appearing ambulatory without antalgia. Both feet well-perfused and warm Both feet ankles lower legs without edema ecchymosis or other signs of Trauma Left foot in particular continues to appear normal and examined normal with no palpable tenderness or palpable osseous deformity all joints with good range of motion smooth and without crepitus. Patient does have decreased sensation however and known with some amount of neuropathy. Impression: 73-year-old type II diabetic male with peripheral vascular disease, mild peripheral neuropathy, history of multiple stress fractures metatarsals left foot spontaneous without trauma, in late healing phase with solid bone callus and no deformity. 1 month follow-up patient is doing well Plan: -Discussed parathyroid hormone elevation with patient and that I have notified patient's primary care and endocrinology who have both signed off in my note last visit. PTH has been followed by Dr. Byrnes nephrology. 6 months ago was normal Samreen was elevated over 100. -Recommend follow-up in 6 months -If any sudden onset pain or discomfort, swelling ecchymosis, return immediately for evaluation. Return sooner if any fever chills nausea, vomiting increased redness, swelling, drianage, pain, or flu like symptoms, or go to nearest emergency room / urgent care for evaluation. -all sharpes cleared, processed and or disposed of according to SOP/MCP. -As part of the service the pertinent [...] as results of the physical exam and obiee consultant opinions and recommendations as sought. Alternatives [...] -The on this visit was given information [employer] service and encouraged to enroll if not already having done so. /noe/ [address] DPM PODIATRY ATTENDING Signed: 02/01/2024 08:[address] DC [facility]
--- OUTSIDE RECORDS SUMMARY | 2024-02-26 05:00 | XMS_ITS ---
Author Name [facility] [place] Organization [facility] [place] Address [address] [place] [address] Care Team Providers Care Rn Hospital Name Role Phone TAMRA HINSON [facility] Providers: All historical and current [...] POINT OF SERVICE [facility] Jun 04, 2017 [id number] [phone] DENISHA QUENTIN PATIENT [employer] POINT OF SERVICE [facility] CHOI E Feb 19, 2017 [id number] DENISHA QUENTIN PATIENT CAREMARK PRESCRIPT ION [facility] Jun 04, 2017 [phone] QUENTIN DENNY PATIENT CAREMARK PRESCRIPT ION [facility] ANDLUIZ RS Feb 19, 2017 [id number] DENISHA QUENTIN PATIENT CAREMARK PRESCRIPT ION [facility] Feb 19, 2017 [id number] QUENTIN DENNY PATIENT CAREMARK PRESCRIPT ION [facility] Feb 19, 2017 [id number] QUENTIN DENNY PATIENT CAREMARK PRESCRIPT ION RASHEEDA ANDLUIZ RS Aug 19, 2005 [id number] [phone] QUENTIN DENNY PATIENT CAREMARK PRESCRIPT ION RASHEEDA ANDLUIZ RS Aug 19, 2005 [id number] [phone] QUENTIN DENNY PATIENT 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 POINT OF SERVICE [facility] Feb 19, 2017 [id number] [phone] QUENTIN DENNY PATIENT 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 POINT OF SERVICE [facility] Feb 19, 2017 [id number] [phone] QUENTIN DENNY PATIENT 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 POINT OF SERVICE [facility] Feb 19, 2017 [id number] QUENTIN DENNY PATIENT NAMHANDLE RS BENEFIT PLAN POINT OF SERVICE [facility] Jun 04, 2017 [id number] QUENTIN DENNY PATIENT NAMHANDLE RS BENEFIT PLAN PREFERRED PROVIDER ORGANIZAT ION (PPO) STAND TRACI Aug 19, 2005 [id number] [phone] QUENTIN DENNY PATIENT MEDICARE ([facility] MEDICARE () PART B Apr 19, 2013 PART B [id number] QUENTIN DENNY PATIENT MEDICARE ([facility]) MEDICARE () PART B Apr 19, 2013 PART B [id number] QUENTIN DENNY PATIENT MEDICARE ([facility]) MEDICARE () PART B Apr 19, 2013 PART B [id number] QUENTIN DENNY PATIENT MEDICARE ([facility]) MEDICARE () PART B Apr 19, 2013 PART B [id number] QUENTIN DENNY PATIENT MEDICARE ([facility]) MEDICARE () PART A Mar 22, 2013 PART A [id number] QUENTIN DENNY PATIENT MEDICARE (WNR) MEDICARE (M) PART A Mar 22, 2013 PART A [id number] [phone] QUENTIN DENNY PATIENT MEDICARE (WNR) MEDICARE (M) PART A Mar 22, 2013 PART A [id number] QUENTIN DENNY PATIENT MEDICARE (WNR) MEDICARE (M) PART A Mar 22, 2013 PART A [id number] QUENTIN DENNY PATIENT MEDICARE (WNR) MEDICARE (M) PART A Mar 22, 2013 PART A [id number] [id number] QUENTIN DENNY PATIENT MEDICARE (WNR) MEDICARE (M) PART B Mar 22, 2013 PART B [id number] [id number] QUENTIN DENNY PATIENT Selected Encounter This section includes the information on record at [place] for the Encounter. Date/Time Encounter Type Encounter Description Reason Provider Source Feb 26, 2024 09:00 AM OFFICE O/P EST MOD 30 MIN RENAL/NEPHROL(EXCE PT DIALYSIS) ICD-10-CM N18.31 Chronic kidney disease, stage 3a JEFFREY STEVENS [facility] Encounter Template Text not used by [place] Assessments - Encounter Diagnoses This section includes the primary and secondary diagnoses documented for the Encounter. Date/Time Primary/Secondary Diagnosis Diagnosis Name Provider Source Feb 27, 2024 11:57 AM PRIMARY Chronic kidney disease, stage 3a NEY STEVENS [facility] Feb 27, 2024 11:57 AM SECONDARY Iron deficiency anemia, unspecified [facility] Feb 27, 2024 11:57 AM SECONDARY Mixed hyperlipidemia NEY STEVENS [facility] Plan of Treatment: Future Appointments (+ 6 months) and Future Tests (+/- 45 days) The Plan of Treatment section includes future care activities for the patient from all [place] treatmentfacilities. This section includes future appointments and future orders which are active, pending or scheduled. Future Appointments This section includes appointments that were scheduled to occur 6 months from the date of the Encounter, up to a maximum of 20 appointments. The data comes from all [place] treatment facilities. Appointment Date/Time Appointment Type Appointme nt Facility Name Apr 04, 2024 09:30 AM AM[facility]ATORY - [facility] [place] Apr 24, 2024 10:00 AM AMBULATORY - MEDICINE [place] [facility] [place] [facility] May 05, 2024 02:00 PM AMBULATORY - [facility] [facility] [place] May 06, 2024 11:00 AM AMBULATORY - MEDICINE [place] [facility] [place] [facility] May 16, 2024 10:30 AM AMBULATORY - [facility] [place] May 23, 2024 09:00 AM AMBULATORY - [facility] [place] May 23, 2024 01:30 PM AMBULATORY - SURGERY [place] [facility] [place] [facility] May 30, 2024 09:30 AM AMBULATORY - [facility] [place] Jun 06, 2024 09:30 AM AMBULATORY - [facility] [place] Jul 23, 2024 09:30 AM [facility] [place] [facility] Lab Results: +/- 30 days of the encounter This section includes the Chemistry and Hematology Lab Results on record with [place] for the patient. Radiology Reports and Pathology Reports are provided separately, in subsequent sections. Lab Results This section contains the Chemistry/Hematology Results that were resulted 30 days before or 30 daysafter the date of the Encounter. Date/Time Source Result Type Result - Unit Interpretation Reference Range Specimen Type Comment Feb 14, 2024 09:02 AM [facility] [place] [facility] MICROALBUMIN CREATININE RATIO PANEL URINE Spe cimen Type: URINE No comment entered. Ordering Provider: VAIBHAV STEVENS Report Released Date/Time: Aug 15, 2023 09:18 AM Reporting Lab: [place] [facility] [place] [facility] [address] [facility] [address] Performing Lab: [place] [facility] [place] [facility] [address] [facility] [address] MICROALBUMIN/CREATININE RATIO 186.3 mg/g H 0-29.9 MICROALBUMIN,QUANTITATIVE 5.5 mg/dL RR U NAVAIL CREATININE URINE 29.53 mg/dL Feb 14, 2024 08:50 AM [place] [facility] [place] [facility] FERRITIN SERUM Specimen Type: SERUM No comment entered. Ordering Provider: SNOW STEVENS Report Released Date/Time: Aug 15, 2023 09:18 AM Reporting Lab: [facility] [address] [facility] [address] Performing Lab: [facility] [address] FERRITIN 81 ng/mL 20-300 Feb 14, 2024 08:50 AM [facility] IRON & TIBC PANEL SERUM Specimen Type: SERUM No comment entered. Ordering Provider: SNOW STEVENS Report Released Date/Time: Aug 15, 2023 09:18 AM Reporting Lab: [facility] [address] [facility] [address] Performing Lab: [facility] [address] [address] TIBC 312 ug/dL 204-475 IRON 74 ug/dL 40-160 Transferrin Saturation 23.8 20.0-50.0 Transferrin (TRF) 236 mg/dL 200-360 Feb 14, 2024 08:50 AM [facility] CBC BLOOD Specimen Type: BLOOD No comment entered. Ordering Provider: SNOW STEVENS Report Released Date/Time: Aug 15, 2023 09:18 AM Reporting Lab: [facility] [address] [address] Performing Lab: [address] [address] WBC 7.79 10*3/uL 4.50-11.00 RBC 4.54 10*6/uL 4.23-5.66 HGB 13.8 g/dL 12.8-17 HCT 41.9 39.2-50.4 MCV 92.3 fL 82-99 MCHC 32.9 g/dL 30.8-35.1 PLT 177 10*3/uL 140-360 RDW-CV 14.9 12.0-16.0 MCH 30.4 pg 26.2-32.6 Feb 14, 2024 08:50 AM [facility] BASIC METABOLIC PANEL (non-fasting) SERUM Spe cimen Type: SERUM No comment entered. Ordering Provider: SNOW STEVENS Report Released Date/Time: Aug 15, 2023 09:18 AM Reporting Lab: [facility] [address] [facility] [address] Performing Lab: [facility] [address] [facility] [address] UREA NITROGEN 21 mg/dL 7-25 GLUCOSE 123 mg/dL H 65-100 SODIUM 141 mmol/L 135-145 POTASSIUM 4.1 mmol/L 3.5-5.0 CHLORIDE 105 mmol/L 100-110 CO2 26 meq/L 20-30 CREATININE, Serum 1.39 mg/dL 0.50-1.40 eGFR(CKD-EPI 2020) 53 mL/min L >60 Vital Signs: All taken on the encounter date This section contains inpatient and outpatient Vital Signs collected on the date of the Encounter. Date/Time Temperature Pulse Blood Pressure Respiratory Rate SP02 Pain Height Weight Body Mass Index Source Feb 26, 2024 09:02 AM 97.3 103 144/71 20 97 0 170 24 [facility] Social History: Smoking Status (Most current) and Tobacco Use (All prior to encounter date) This section includes the most current, and the historical, smoking and tobacco- related health factors from the [place] facility where the Encounter took place. Current Smoking Status This section includes the most current smoking, or tobacco-related health factor, from the [place] facility where the Encounter took place. Date/Time Current Smoking Status Comment [facility] nicole Apr 24, 2023 10:30 AM VA-TOBACCO FORMER USER [facility] Tobacco Use History This section includes a history of the smoking, or tobacco-related health factors, that were collected on or before the date of the Encounter. The data comes from the [place] facility where the Encounter took place. Date/Time Smoking Status/Tobac co Use Comment Facility Apr 24, 2023 10:30 AM VA-TOBACCO QUIT 15 YRS OR MORE [facility] Mar 22, 2022 11:00 AM VA-TOBACCO FORMER USER [place] [facility] Mar 22, 2022 11:00 AM VA-TOBACCO QUIT 15 YRS OR MORE [facility] Oct 21, 2020 09:30 AM VA-TOBACCO NEVER USED [facility] [place] [facility] Nov 04, 2019 08:30 AM VA-TOBACCO FORMER USER [facility] Nov 04, 2019 08:30 AM VA-TOBACCO QUIT 15 YRS OR MORE [facility] [place] [facility] May 06, 2018 08:27 AM VA-TOBACCO FORMER USER [facility] [place] [facility] May 06, 2018 08:27 AM VA-TOBACCO QUIT 15 YRS OR MORE [facility] [place] [facility] Nov 05, 2017 09:54 AM QUIT TOBACCO USE > 7 YEARS AGO [facility] [place] [facility] June 28, 2016 09:36 AM QUIT TOBACCO USE > 7 YEARS AGO [facility] [place] [facility] Mar 15, 2015 10:54 AM LIFETIME NON-TOBACCO USER quit cigs. 1998 [facility] [place] [facility] Nov 14, 2004 02:40 PM HISTORY OF SMOKING [facility] [place] [facility] May 18, 2003 09:05 AM HISTORY OF SMOKING quit August 1998 [facility] [place] [facility] Jun 09, 2002 08:40 AM HISTORY OF SMOKING quit . [facility] [place] [facility] Jun 09, 2002 08:40 AM QUIT TOBACCO USE > 7 YEARS AGO [facility] [place] [facility] Jun 10, 2001 08:50 AM HISTORY OF SMOKING quit 1998 [facility] [place] [facility] Jun 10, 2001 08:50 AM QUIT TOBACCO USE 1-7 YEARS AGO [facility] [place] [facility] Jun 08, 2000 02:55 PM HISTORY OF SMOKING quit 2yrs ago [facility] Encounter Notes: All associated encounter notes This section contains the clinical notes associated to the Encounter. Date/Time Encounter Note(s) Provider Source Feb 26, 2024 08:24 AM NEPHROLOGY E & M NOTE: LOCAL TITLE: NEPHROLOGY NOTE STANDARD TITLE: NEPHROLOGY E & M NOTE DATE OF NOTE: FEB 26, 2024@08:24 ENTRY DATE: FEB 26, 2024@08:24:47 AUTHOR: SNOW STEVENS COSIGNER: URGENCY: STATUS: COMPLETED Nephrology Note Follow-Up 02/26/24 09:00 Blood Pressure: 144/71 (02/26/2024 09:02) Pain: 0 (02/26/2024 09:02) Patient Height: 70 in [177.8 cm] (04/24/2023 10:25) Patient Weight: 170 lb [77.11 kg] (02/26/2024 09:02) Pulse: 103 (02/26/2024 09:02) Respiration: 20 (02/26/2024 09:02) Temperature: 97.3 F [36.3 C] (02/26/2024 09:02) Consultation Problems:CKD stage 3 and hypertension(White Coat) Subjective Information:73 year old diabetic male with a history of hypertension, hyperlipidemia and CKD presenting for continued management of his renal disease and related problems. The patient denies any new problems. No problem with his present medical regimen. He denies chest pain, SOB or edema; Active and Recently Outpatient Medications (including Supplies): Active Outpatient Medications Status 1) ASCORBIC ACID 500MG TAB TAKE ONE TABLET BY MOUTH ONCE DAILY ACTIVE (S) FOR VITAMIN/NUTRITION SUPPLEMENT Indication: FOR INADEQUATE VITAMIN C 2) CARBOXYMETHYLCELLULOSE NA 0.5% OPH SOLN INSTILL 1 DROP INTO ACTIVE EACH EYE FOUR TIMES A DAY Indication: FOR DRY EYE 3) CLOTRIMAZOLE 1% TOP SOLN APPLY 1 DROP TOPICALLY ONCE DAILY ACTIVE FOR FUNGAL INFECTION. APPLY WHEN NAIL IS DRY (NOT AFTER SHOWER/BATH). USE FOR AT LEAST 9-12 MONTHS. REGULAR NAIL CARE IS RECOMMENDED Indication: FOR FUNGAL INFECTION OF THE SKIN 4) EMPAGLIFLOZIN 10MG TAB TAKE ONE TABLET BY MOUTH ONCE DAILY ACTIVE Indication: FOR TYPE 2 DIABETES MELLITUS 5) [...] TAKE ONE TABLET BY MOUTH TWICE ACTIVE DAILY Indication: FOR EXCESSIVE PRODUCTION OF STOMACH [...] 50MG BY MOUTH ACTIVE 21 Total Medications Active Outpatient Medications Status 1) ACCU-CHEK GUIDE (GLUCOSE) TEST STRIP USE 1 STRIP TO ACTIVE TEST BLOOD SUGARS TWO TIMES A WEEK 2) ASCORBIC ACID 500MG TAB TAKE ONE TABLET BY MOUTH ONCE ACTIVE DAILY FOR VITAMIN/NUTRITION SUPPLEMENT 3) CLOTRIMAZOLE 1% TOP TAURUS General:Alert, cooperative in NAD HEENT: NECK:supple; no JVD; LUNGS:clear Heart:RRR II/ systolic murmur best in the right upper sternal border; ABD:increased abdominal girth; Ext:trace lower leg edema; SKIN: Assessment and Plans: Below Areas to address in the evaluation and management of the patient's CKD and to reduce renal disease progression is as follows: #1. CKD stage 3: the patient is without uremic sx. Review of labs from Jan 25, 2024 showed potassium(4.1), bicarb(26). His urine microalb/cr ratio is 186. His creatinine was 1.58 now 1.39. His GFR was 45 now 53. His renal function is stable. NO med changes. Will reassess in 6 months. #2. Hypertension/Bradycardia: the patient's blood pressure was 144/71 p=103 which is slightly better. NO med changes. Continure to limit his salt in his diet. #3. Hypercholesterolemia: the patient is on pravastatin to control his cholesterol which was 121 an his HDL was 35. he patient is encouraged to try to adhere to heart, healthy lot fat diet. #4. Anemia: the patient has an updated H/H 14/42 mcv 92 from . His TIBC was 312, iron 74, ferritin 42 and TSAT of 24. His iron studies are much better. He is presently on FeSulfate, ascorbic and multivitamin which he will continue. #5. CKD-MBD: He had a 08/12 labs showed PTH of 104, PO4 of 3.6, VitD of 39, and mag of 2.1. His Calcium was 8.6 and Alkaline Phos was 53. The lab are in acceptable ranges. #6. Diabetes: The patient has a history of type II diabetes. the patient's HgbA1c was 6.0(Sep) which is in the goal desired(<7.5). He is presently taking insulin which he is encouraged to take along eating foods to help control his glucose. #7. Nutritional state/obesity: the patient's recent albumin was 4.1 which continues to improve. It is slowly improving. His weight was 168 lbs,. The patient is encouraged to exercise and adhere to a heart healthy low fat diet to try to lower his weight. This was a 20 minute visit > 50% of which was spent in counseling and coordination of care. All available test results were reviewed with the . Medication Reconciliation: Outpatient: Has the patient been taking medications as documented in the EMLR? YES: The patient has been taking medications as documented in the EMLR. Essential Medication List for Review used to complete this medication reconciliation. INCLUDED IN THIS LIST: Alphabetical list of active outpatient prescriptions dispensed from this [place] (local) and dispensed from another [place] or DoD facility (remote) as well as inpatient orders (local, pending and active), local clinic medications, locally documented non-VA medications, and local prescriptions that have or been discontinued in the past 90 days. - All changes in medications, including all non-VA/Herbal/OTC medications were entered into CPRS. - If there were any medications the patient should no longer take, they were discontinued. - The patient/caregiver was instructed to update this list, discard old lists, and take this list to the next appointment, whether with a VA or non-VA provider. /noe/ SNOW STEVENS M.D. [employer] Signed: 02/26/2024 09:16 NSOW STEVENS [place] [facility]
--- OUTSIDE RECORDS SUMMARY | 2024-04-04 05:30 | XMS_ITS | Encounter Summary ---
Author Name [facility] [place] Address [address] [place] [address] Care Team Providers Care Sleeve Tailor Name Role Phone TAMRA HINSON Primary Care Provider [facility] Insurance Providers: All historical and [...] POINT OF SERVICE MHBP Jun 04, 2017 [id number] QUENTIN DENNY PATIENT AETNA POINT OF SERVICE MHBP CHOI E Feb 19, 2017 [id number] QUENTIN DENNY PATIENT CAREMARK PRESCRIPT ION MHBP Jun 04, 2017 [id number] CELSAQUENTIN BE PATIENT CAREMARK PRESCRIPT ION MAILH ANDLE RS Feb 19, 2017 [id number] [phone] QUENTIN DENNY PATIENT CAREMARK PRESCRIPT ION MHBP Feb 19, 2017 [id number] QUENTIN DENNY PATIENT CAREMARK PRESCRIPT ION MHBP Feb 19, 2017 [id number] [phone] QUENTIN DENNY PATIENT CAREMARK PRESCRIPT ION NAM ANDLUIZ RS Aug 19, 2005 [id number] [phone] QUENTIN DENNY PATIENT CAREMARK PRESCRIPT ION [facility] ANDLUIZ RS Aug 19, 2005 [id number] QUENTIN DENNY PATIENT 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 BENEFIT PLAN POINT OF SERVICE MHBP Feb 19, 2017 [id number] [phone] QUENTIN DENNY PATIENT 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 BENEFIT PLAN POINT OF SERVICE MHBP Feb 19, 2017 [id number] QUENTIN DENNY PATIENT 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 BENEFIT PLAN POINT OF SERVICE MHBP Feb 19, 2017 [id number] QUENTIN DENNY PATIENT NAMHANDLE RS BENEFIT PLAN POINT OF SERVICE MHBP Jun 04, 2017 [id number] [phone] QUENTIN DENNY PATIENT NAMHANDLE RS BENEFIT PLAN PREFERRED PROVIDER ORGANIZAT ION (PPO) STAND TRACI Aug 19, 2005 [id number] QUENTIN DENNY PATIENT MEDICARE ([facility]) MEDICARE () PART B Apr 19, 2013 PART B [id number] QUENTIN DENNY PATIENT MEDICARE ([facility]) MEDICARE () PART B Apr 19, 2013 PART B [id number] QUENTIN DENNY PATIENT MEDICARE (WN) MEDICARE () PART B Apr 19, 2013 PART B [id number] QUENTIN DENNY PATIENT MEDICARE (WN) MEDICARE () PART B Apr 19, 2013 PART B [id number] [phone] QUENTIN DENNY PATIENT MEDICARE (WN) MEDICARE () PART A Mar 22, 2013 PART A [id number] QUENTIN DENNY PATIENT MEDICARE ([facility]) MEDICARE (M) PART A Mar 22, 2013 PART A [id number] QUENTIN DENNY PATIENT MEDICARE (WNR) MEDICARE (M) PART A Mar 22, 2013 PART A [id number] [id number] QUENTIN DENNY PATIENT MEDICARE (WNR) MEDICARE (M) PART A Mar 22, 2013 PART A [id number] QUENTIN DENNY PATIENT MEDICARE (WNR) MEDICARE (M) PART A Mar 22, 2013 PART A [id number] QUENTIN DENNY PATIENT MEDICARE (WNR) MEDICARE (M) PART B Mar 22, 2013 PART B [id number] QUENTIN DENNY PATIENT Selected Encounter This section includes the information on record at [place] for the Encounter. Date/Time Encounter Type Encounter Description Reason Provider Source Apr 04, 2024 09:30 AM HEARING AID REPAIR/MODIFYING AUDIOLOGY ICD-10-CM Z46.1 Encounter for fitting and adjustment of hearing aid LILA CHAU Encounter Template Text not used by [place] Assessments - Encounter Diagnoses This section includes the primary and secondary diagnoses documented for the Encounter. Date/Time Primary/Secondary Diagnosis Diagnosis Name Provider Source Apr 04, 2024 09:56 AM PRIMARY Encounter for fitting and adjustment of hearing aid MANUEL RIVERO Apr 04, 2024 09:56 AM SECONDARY Sensorineural hearing loss, bilateral MANUEL RIVERO Plan of Treatment: Future Appointments (+ 6 months) and Future Tests (+/- 45 days) The Plan of Treatment section includes future care activities for the patient from all [place] treatmentfacilities. This section includes future appointments and future orders which are active, pending or scheduled. Future Appointments This section includes appointments that were scheduled to occur 6 months from the date of the Encounter, up to a maximum of 20 appointments. The data comes from all [place] treatment facilities. Appointment Date/Time Appointment Type Appointme nt Facility Name Apr 24, 2024 10:00 AM AMBULATORY - MEDICINE [facility] May 05, 2024 02:00 PM [facility] May 06, 2024 11:00 AM [place] [facility] May 16, 2024 10:30 AM [facility] [place] [facility] [place] May 23, 2024 09:00 AM [facility] - [place] [facility] [place] May 23, 2024 01:30 PM AMBULATORY - SURGERY [place] [facility] [place] [place] [facility] May 30, 2024 09:30 AM AM[facility]ULATORY - [facility] [facility] [place] Jun 06, 2024 09:30 AM AM[facility]ULATORY - [place]AB [facility] [place] Jul 23, 2024 09:30 AM AMBULATORY - MEDICINE [place] [facility] Aug 27, 2024 10:00 AM AMBULATORY - MEDICINE [place] [facility] Lab Results: +/- 30 days of the encounter This section includes the Chemistry and Hematology Lab Results on record with [place] for the patient. Radiology Reports and Pathology Reports are provided separately, in subsequent sections. Lab Results This section contains the Chemistry/Hematology Results that were resulted 30 days before or 30 daysafter the date of the Encounter. Date/Time Source Result Type Result - Unit Interpretation Reference Range Specimen Type Comment Apr 23, 2024 09:36 AM [facility] HEMOGLOBIN A1C PANEL BLOOD Specimen Type: BLOOD Comment: Values obtained from A1C measurements can vary. For atypical A1C assays, a reported value of 7.0 could actually be between 6.72 and 7.28 if measured by a reference method. A reported value of 9.0 could actually be between 8.73 and 9.27. Ref: http://www.ngsp .org/CAPdata.as p Ordering Provider: TAMRA HINSON Report Released Date/Time: Oct 29, 2023 10:41 AM Reporting Lab: [facility] [address] [facility] [address] Performing Lab: [facility] [address] [address] HEMOGLOBIN A1C 6.1 H 4.0-5.6 Apr 23, 2024 09:36 AM [facility] LIPID PANEL FASTING SERUM Specimen Type: SERU M No comment entered. Ordering Provider: TAMRA HINSON Report Released Date/Time: Oct 29, 2023 10:41 AM Reporting Lab: [address] [address] Performing Lab: [address] [address] CHOLESTEROL 124 mg/dL TRIGLYCERIDE 307 mg/dL H 0-150 LDL calculated Reflex to dLDL mg/dL 0-12 9 CHOL/HDL 3.8 HDL CHOLESTEROL 33 mg/dL L 40-60 LDL DIRECT 51 mg/dL Radiology Reports: +/- 30 days of the [...] the Encounter. The data comes from all [facility] facilities. Date/Time Radiology Report Provider Source Apr 24, 2024 11:26 AM SPINE CERVICAL, 4 OR 5 VIEWS: QUENTIN DENNY [id number] -1950 M [facility] Date: APR 24, 2024@11:26 Req Phys: TAMRA HINSON Loc: [facility] PACT EIGHT MD (Req'g Loc) Im Loc: [facility] 1 Service: [place] [address] (Case [id number] COMPLETE) SPINE CERVICAL, 4 OR 5 VIEWS (RAD Detailed) CPT:11046 Reason for Study: neck pain x 1 month Clinical History: Report Status: Verified Date Reported: APR 24, 2024 Date Verified: APR 24, 2024 Cradle Slide Maker E-Sig:/ES/KADEN ZAMORA JR Report: Study: AP, lateral and left and right oblique views of the cervical spine. Comparison: Cervical spine radiographs from November 20, 2005. Findings: There is intervertebral disc space narrowing, vertebral endplate sclerosis and anterior osteophytosis at the C3-T1 levels which have worsened and are now moderate to severe in degree and consistent with degenerative disc disease. This is most marked at the C4-5 level. There is grade 1 anterolisthesis of C3 on C4 and C7 on T1 with grade 1 retrolisthesis of C4 on C5 and with overall straightening of the normal cervical lordosis, likely secondary to patient positioning, pain or the degenerative changes. There is moderate right C6-7 level neural foraminal stenosis secondary to bony osteophyte formation. The vertebral heights are normal. There is mild to moderate new diffuse facet and uncovertebral joint hypertrophic change. The bony mineralization is normal. No bony fracture, dislocation or subluxation is identified. The skull base appears normal. Right-sided neck calcifications suspicious for carotid atherosclerotic plaques. Surgical clips present in the left-sided neck soft tissues. Impression: Interval worsening of multilevel degenerative changes in the cervical spine, as described above. Primary Diagnostic Code: No immediate attention required Primary Interpreting Staff: KADEN ZAMORA JR, Radiologist (Cradle Slide Maker) /KADEN ROBB JR [facility] Encounter Notes: All associated encounter notes This section contains the clinical notes associated to the Encounter. Date/Time Encounter Note(s) Provider Source Apr 04, 2024 07:36 AM AUDIOLOGY NOTE: LOCAL TITLE: AUDIOLOGY HEALTH BUSINESS SERVICES ASSOCIATE STANDARD TITLE: AUDIOLOGY NOTE DATE OF NOTE: APR 04, 2024@07:36 ENTRY DATE: APR 04, 2024@07:37:05 AUTHOR: MANUEL RIVERO EXP COSIGNER: LILA CHAU URGENCY: STATUS: COMPLETED April 04, 2024 History/Background: [place] was seen for a hearing aid follow up at the [facility], unaccompanied. The presented today requesting maintenance on his hearing aids. Hearing aids: GN Resound Omnia 61 miniMakeLeaps Serial Numbers: [id number] Battery Size: 312 Date Issued: 03/09/2022 Hearing aid check: Both hearing aids were cleaned and checked. Replaced right wire twisting machine operator(no left wire twisting machine operator in stock at [facility]) domes, batteries, left wax guard and retention lines. Biologic check was good. Both hearing aids were connected to LALA to confirm user settings. Otoscopy: Clear canals. Wax guard supply ordered per Veterans request. Plan: The [place] will follow up as needed. /noe/ MANUEL RIVERO [facility]iology [facility] Church Warden Signed: 04/04/2024 09:59 /noe/ Yeni RODRÍGUEZ, [facility] Insurance Verification Rep Chief, Audiology Cosigned: 04/04/2024 10:21 MANUEL RIVERO
--- OUTSIDE RECORDS SUMMARY | 2024-04-22 11:07 | XMS_ITS | Encounter Summary ---
Author Name [facility] [place] Address [address] [place] [address] Care Team Providers Care Jewelry Maker Name Role Phone TAMRA HINSON Primary Care Provider [facility] Insurance Providers: All historical and [...] POINT OF SERVICE MHBP Jun 04, 2017 [id number] QUENTIN DENNY PATIENT AETNA POINT OF SERVICE MHBP CHOI E Feb 19, 2017 [id number] DENISHA QUENTIN PATIENT CAREMARK PRESCRIPT ION MHBP Jun 04, 2017 [id number] QUENTIN DENNY PATIENT CAREMARK PRESCRIPT ION [facility] ANDLE RS Feb 19, 2017 [id number] QUENTIN DENNY PATIENT CAREMARK PRESCRIPT ION MHBP Feb 19, 2017 [id number] [phone] QUENTIN DENNY PATIENT CAREMARK PRESCRIPT ION MHBP Feb 19, 2017 [id number] QUENTIN DENNY PATIENT CAREMARK PRESCRIPT ION RASHEEDA ANDLUIZ RS Aug [birth year], 2005 [id number] QUENTIN DENNY PATIENT CAREMARK PRESCRIPT ION RASHEEDA ANDLUIZ RS Aug 19, 2005 [id number] [phone] QUENTIN DENNY PATIENT 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 BENEFIT PLAN POINT OF SERVICE MHBP Feb 19, 2017 [id number] QUENTIN DENNY PATIENT 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 BENEFIT PLAN POINT OF SERVICE MHBP Feb 19, 2017 [id number] QUENTIN DENNY PATIENT 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 BENEFIT PLAN POINT OF SERVICE MHBP Feb 19, 2017 [id number] QUENTIN DENNY PATIENT NAMHANDLUIZ RS BENEFIT PLAN POINT OF SERVICE MHBP Jun 04, 2017 [id number] QUENTIN DENNY PATIENT NAMHANDLE RS BENEFIT PLAN PREFERRED PROVIDER ORGANIZAT ION (PPO) STAND TRACI Aug 19, 2005 [id number] [phone] QUENTIN DENNY PATIENT MEDICARE ([facility]) MEDICARE () PART B Apr 19, 2013 PART B [id number] [phone] QUENTIN DENNY PATIENT MEDICARE ([facility]) MEDICARE () PART B Apr 19, 2013 PART B [id number] [phone] QUENTIN DENNY PATIENT MEDICARE ([facility]) MEDICARE () PART B Apr 19, 2013 PART B [id number] [phone] QUENTIN DENNY PATIENT MEDICARE ([facility]) MEDICARE () PART B Apr 19, 2013 PART B [id number] QUENTIN DENNY PATIENT MEDICARE ([facility]) MEDICARE () PART A Mar 22, 2013 PART A [id number] QUENTIN DENNY PATIENT MEDICARE (WNR) MEDICARE (M) PART A Mar 22, 2013 PART A [id number] [phone] QUENTIN DENNY PATIENT MEDICARE (WNR) MEDICARE (M) PART A Mar 22, 2013 PART A [id number] QUENTIN DENNY PATIENT MEDICARE (WNR) MEDICARE (M) PART A Mar 22, 2013 PART A [id number] QUENTIN DENNY PATIENT MEDICARE (WNR) MEDICARE (M) PART A Mar 22, 2013 PART A [id number] QUENTIN DENNY PATIENT MEDICARE (WNR) MEDICARE (M) PART B Mar 22, 2013 PART B [id number] QUENTIN DENNY PATIENT Selected Encounter This section includes the information on record at [place] for the Encounter. Date/Time Encounter Type Encounter Description Reason Pro vider Source Apr 22, 2024 03:07 PM Outpatient Encounter ADMIN PAT ACTIVTIES (MASNONCT) IHE Encounter Template Text not used by [place] Plan of Treatment: Future Appointments (+ 6 months) and Future Tests (+/- 45 days) The Plan of Treatment section includes future care activities for the patient from all [place] treatmentfacilities. This section includes future appointments and future orders which are active, pending or scheduled. Future Appointments This section includes appointments that were scheduled to occur 6 months from the date of the Encounter, up to a maximum of 20 appointments. The data comes from all [place] treatment facilities. Appointment Date/Time Appointment Type Appointme nt Facility Name Apr 24, 2024 10:00 AM AMBULATORY [place]ICINE [place] C [facility]IDL [facility] May 05, 2024 02:00 PM AMBULATORY - RE[facility]AB [facility] May 06, 2024 11:00 AM AMBULATORY - MEDICINE [place] C [facility] SHANTIN JAQUAN [facility] May 16, 2024 10:30 AM AMBULATORY - REHAB MEDICIN [place] May 23, 2024 09:00 AM AMBULATORY - REHAB [facility] May 23, 2024 01:30 PM AMBULATORY - SURGERY [facility] DANIELL [facility] May 30, 2024 09:30 AM AMBULATORY - REHAB MEDICIN E [place] Jun 06, 2024 09:30 AM AMBULATORY - REHAB [facility] Jul 23, 2024 09:30 AM AMBULATORY - MEDICINE [place] [facility] Aug 27, 2024 10:00 AM AMBULATORY - MEDICINE [place] C [facility] Lab Results: +/- 30 days of the encounter This section includes the Chemistry and Hematology Lab Results on record with [place] for the patient. Radiology Reports and Pathology Reports are provided separately, in subsequent sections. Lab Results This section contains the Chemistry/Hematology Results that were resulted 30 days before or 30 daysafter the date of the Encounter. Date/Time Source Result Type Result - Unit Interpretation Reference Range Specimen Type Comment Apr 23, 2024 09:36 AM [facility] HEMOGLOBIN A1C PANEL BLOOD Specimen Type: BLOOD [...] Oct 29, 2023 10:41 AM Reporting Lab: [address] [address] Performing Lab: [address] [address] HEMOGLOBIN A1C 6.1 H 4.0-5.6 Apr 23, 2024 09:36 AM [facility] LIPID PANEL FASTING SERUM Specimen Type: SERU M No comment entered. Ordering Provider: TAMRA HINSON Report Released Date/Time: Oct 29, 2023 10:41 AM Reporting Lab: [address] [address] Performing Lab: [address] [address] CHOLESTEROL 124 mg/dL TRIGLYCERIDE 307 mg/dL H 0-150 LDL calculated Reflex to dLDL mg/dL 0-12 9 CHOL/HDL 3.8 HDL CHOLESTEROL 33 mg/dL L 40-60 LDL DIRECT 51 mg/dL Social History: Smoking Status (Most current) and Tobacco Use (All prior to encounter date) This section includes the most current, and the historical, smoking and tobacco- related health factors from the [place] facility where the Encounter took place. Current Smoking Status This section includes the most current smoking, or tobacco-related health factor, from the [place] facility where the Encounter took place. Date/Time Current Smoking Status Comment [facility] Apr 24, 2023 10:30 AM VA-TOBACCO FORMER USER [place] [facility] [place] [facility] Tobacco Use History This section includes a history of the smoking, or tobacco-related health factors, that were collected on or before the date of the Encounter. The data comes from the [place] facility where the Encounter took place. Date/Time Smoking Status/Tobac co Use Comment [facility] Apr 24, 2023 10:30 AM VA-TOBACCO QUIT 15 YRS OR MORE [place] [facility] [place] [facility] Mar 22, 2022 11:00 AM VA-TOBACCO FORMER USER [place] [facility] [facility] Mar 22, 2022 11:00 AM VA-TOBACCO QUIT 15 YRS OR MORE [place] [facility] [place] [facility] Oct 21, 2020 09:30 AM VA-TOBACCO NEVER USED [place] [facility] [place] [facility] Nov 04, 2019 08:30 AM VA-TOBACCO FORMER USER [place] [facility] [place] [facility] Nov 04, 2019 08:30 AM VA-TOBACCO QUIT 15 YRS OR MORE [place] [facility] [place] [facility] May 06, 2018 08:27 AM VA-TOBACCO FORMER USER [place] [facility] [place] [facility] May 06, 2018 08:27 AM VA-TOBACCO QUIT 15 YRS OR MORE [place] [facility] [place] [facility] Nov 05, 2017 09:54 AM QUIT TOBACCO USE > 7 YEARS AGO [place] [facility] [place] [facility] June 28, 2016 09:36 AM QUIT TOBACCO USE > 7 YEARS AGO [place] [facility] [place] [facility] Mar 15, 2015 10:54 AM LIFETIME NON-TOBACCO USER quit cigs. 1998 [place] [facility] [place] [facility] Nov 14, 2004 02:40 PM HISTORY OF SMOKING [place] [facility] [place] [facility] May 18, 2003 09:05 AM HISTORY OF SMOKING quit August 1998 [facility] Jun 09, 2002 08:40 AM HISTORY OF SMOKING quit 99. [facility] Jun 09, 2002 08:40 AM QUIT TOBACCO USE > 7 YEARS AGO [facility] Jun 10, 2001 08:50 AM HISTORY OF SMOKING quit 1998 [facility] Jun 10, 2001 08:50 AM QUIT TOBACCO USE 1-7 YEARS AGO [facility] Jun 08, 2000 02:55 PM HISTORY OF SMOKING quit 2yrs ago [facility] Radiology Reports: +/- 30 days of the [...] the Encounter. The data comes from all [place] treatment facilities. Date/Time Radiology Report Provider Source Apr 24, 2024 11:26 AM SPINE CERVICAL, 4 OR 5 VIEWS: QUENTIN DENNY [id number] -[id number] M Ex Date: APR 24, 2024@11:26 Req Phys: TAMRA HINSON Loc: [facility] PACT EIGHT MD (Req'g Loc) [facility] [place] Loc: [facility] 1 Service: [place] [address] (Case 197 COMPLETE) SPINE CERVICAL, 4 OR 5 VIEWS (RAD Detailed) CPT:42775 Reason for Study: neck pain x 1 month Clinical History: Report Status: Verified Date Reported: APR 24, 2024 Date Verified: APR 24, 2024 Insurance Claims Examiner E-Sig:/ES/KADEN ZAMORA JR Report: Study: AP, lateral [...] Primary Interpreting Staff: KADEN ZAMORA JR, Radiologist (Insurance Claims Examiner) /KADEN ROBB JR [facility] Encounter Notes: All associated encounter notes This section contains the clinical notes associated to the Encounter. Date/Time Encounter Note(s) Provider Source Apr 22, 2024 03:07 PM PHARMACY NOTE: LOCAL TITLE: PHARMACY CUSTOMER CARE MEDICATION RENEWAL STANDARD TITLE: PHARMACY NOTE DATE OF NOTE: APR 22, 2024@15:07 ENTRY DATE: APR 22, 2024@15:07:06 AUTHOR: RAFIA SPRAROW COSIGNER: URGENCY: STATUS: COMPLETED Date: Apr Division: [facility] referred by Pharmacy Call Center for medication renewal: Non-controlled/maintenanc e medication Medications requested: [id number] FERROUS GLUCONATE 324MG TAB Defer to specialty clinic To be mailed . Please review and renew if appropriate. *This note was generated by [facility] Customer Care. If you have any questions or need assistance, do not contact this author. Please refer all questions to your local, on-site pharmacy departments. /noe/ RAFIA SPARROW CPhT OPHTHALMIC NURSE, MS/PHARMACY CUSTOMER CARE Signed: 04/22/2024 15:07 Receipt Acknowledged By: 04/23/2024 15:07 /noe/ SNOW STEVENS M.D. CUT OFF WORKER MOBILE MANAGER RAFIA SPARROW [facility]
--- OUTSIDE RECORDS SUMMARY | 2024-04-24 06:00 | XMS_ITS ---
Author Name [facility] [place] [facility] [place] Address [address] [place] [address] Care Team Providers Care Rewind Operator Name Role Phone LUCINDA OVALLE Primary Care Provider [facility] Insurance Providers: All historical and current [...] POINT OF SERVICE [facility] Jun 04, 2017 [id number] DENISHA QUENTIN PATIENT AETNA POINT OF SERVICE [facility] CHOI E Feb 19, 2017 [id number] DENISHA QUENTIN PATIENT CAREMARK PRESCRIPT ION [facility] Jun 04, 2017 [id number] [phone] QUENTIN DENNY PATIENT CAREMARK PRESCRIPT ION [facility] ANDLUIZ RS Feb 19, 2017 [id number] DENISHA QUENTIN PATIENT CAREMARK PRESCRIPT ION [facility]BP Feb 19, 2017 [phone] QUENTIN DENNY PATIENT CAREMARK PRESCRIPT ION [facility] Feb 19, 2017 [id number] QUENTIN DENNY PATIENT CAREMARK PRESCRIPT ION RASHEEDA CLARKE RS Aug 19, 2005 [id number] QUENTIN DENNY PATIENT CAREMARK PRESCRIPT ION RASHEEDA ANDLUIZ RS Aug 19, 2005 [id number] [phone] QUENTIN DENNY PATIENT 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 POINT OF SERVICE MHBP Feb 19, 2017 [id number] QUENTIN DENNY PATIENT 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 POINT OF SERVICE [facility]BP Feb 19, 2017 [id number] [phone] QUENTIN DENNY PATIENT 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AN POINT OF SERVICE [facility]BP Feb 19, 2017 [id number] QUENTIN DENNY PATIENT NAMHANDLUIZ RS BENEFIT PLAN POINT OF SERVICE [facility] Jun 04, 2017 [id number] [phone] QUENTIN DENNY PATIENT NAMHANDLE RS BENEFIT PLAN PREFERRED PROVIDER ORGANIZAT ION (PPO) STAND TRACI Aug 19, 2005 [id number] [phone] QUENTIN DENNY PATIENT MEDICARE ([facility] MEDICARE () PART B Apr 19, 2013 PART B [id number] [phone] QUENTIN DENNY PATIENT MEDICARE ([facility]) MEDICARE () PART B Apr 19, 2013 PART B [id number] QUENTIN DENNY PATIENT MEDICARE ([facility]) MEDICARE () PART B Apr 19, 2013 PART B [id number] QUENTIN DENNY PATIENT MEDICARE ([facility]) MEDICARE () PART B Apr 19, 2013 PART B [id number] QUENTIN DENNY PATIENT MEDICARE ([facility]) MEDICARE () PART A Mar 22, 2013 PART A [id number] [phone] QUENTIN DENNY PATIENT MEDICARE (WNR) MEDICARE (M) PART A Mar 22, 2013 PART A [id number] QUENTIN DENNY PATIENT MEDICARE (WNR) MEDICARE (M) PART A Mar 22, 2013 PART A [id number] [phone] QUENTIN DENNY PATIENT MEDICARE (WNR) MEDICARE (M) PART A Mar 22, 2013 PART A [id number] QUENTIN DENNY PATIENT MEDICARE (WNR) MEDICARE (M) PART A Mar 22, 2013 PART A [id number] QUENTIN DENNY PATIENT MEDICARE (WNR) MEDICARE (M) PART B Mar 22, 2013 PART B [id number] [phone] QUENTIN DENNY PATIENT Selected Encounter This section includes the information on record at [place] for the Encounter. Date/Time Encounter Type Encounter Description Reason Provider Source Apr 24, 2024 10:00 AM OFFICE O/P EST MOD 30 MIN PRIMARY CARE/MEDICINE ICD-10-CM D50.9 Iron deficiency anemia, unspecified FURCOLO,LUCINDA IHE Encounter Template Text not used by [place] Assessments - Encounter Diagnoses This section includes the primary and secondary diagnoses documented for the Encounter. Date/Time Primary/Secondary Diagnosis Diagnosis Name Provider Source May 15, 2024 05:22 PM PRIMARY Iron deficiency anemia, unspecified FURCOLO,LUCINDA [facility] [place] [facility] May 15, 2024 05:22 PM SECONDARY Bilateral primary osteoarthritis of knee FURCOLO,LUCINDA [facility] [place] [facility] May 15, 2024 05:22 PM SECONDARY Chronic obstructive pulmonary disease, unspecified FURCOLO,LUCINDA [facility] [place] [facility] May 15, 2024 05:22 PM SECONDARY Esophageal obstruction FURCOLO,LUCINDA [facility] [place] [facility] May 15, 2024 05:22 PM SECONDARY Essential (primary) hypertension FURCOLO,LUCINDA [facility] [place] [facility] May 15, 2024 05:22 PM SECONDARY Mixed hyperlipidemia FURCOLO,LUCINDA [facility] [place] [facility] May 15, 2024 05:22 PM SECONDARY Occlusion and stenosis of left carotid artery [place]UCINDA [place]VAL[place] [facility] May 15, 2024 05:22 PM SECONDARY Type 2 diabetes mellitus without complications LUCINDA OVALLE [place] [facility] Plan of Treatment: Future Appointments (+ 6 months) and Future Tests (+/- 45 days) The Plan of Treatment section includes future care activities for the patient from all [place] [facility]. This section includes future appointments and future orders which are active, pending or scheduled. Future Appointments This section includes appointments that were scheduled to occur 6 months from the date of the Encounter, up to a maximum of 20 appointments. The data comes from all [place] treatment facilities. Appointment Date/Time Appointment Type Appointme nt Facility Name May 05, 2024 02:00 PM AMBULATORY - REHAB [facility] May 06, 2024 11:00 AM AM[place]ORY [place]IC[place] [facility] May 16, 2024 10:30 AM AMBULATORY - REHAB [facility] May 23, 2024 09:00 AM AMBULATORY - REHAB MEDICIN [facility] May 23, 2024 01:30 PM AMBULATORY - SURGERY [facility] May 30, 2024 09:30 [facility] Jun 06, 2024 09:30 AM [facility]ULAT[facility] - [facility] Jul 23, 2024 09:30 AM [place] [facility] Aug 27, 2024 10:00 AM [place]ORY [place] [facility] [place] [facility] Lab Results: +/- 30 days of the encounter This section includes the Chemistry and Hematology Lab Results on record with [place] for the patient. Radiology Reports and Pathology Reports are provided separately, in subsequent sections. Lab Results This section contains the Chemistry/Hematology Results that were resulted 30 days before or 30 daysafter the date of the Encounter. Date/Time Source Result Type Result - Unit Interpretation Reference Range Specimen Type Comment Apr 23, 2024 09:36 AM [place] [facility] HEMOGLOBIN A1C PANEL BLOOD Specimen Type: BLOOD Comment: Values obtained from A1C measurements can vary. For atypical A1C assays, a reported value of 7.0 could actually be between 6.72 and 7.28 if measured by a reference method. A reported value of 9.0 could actually be between 8.73 and 9.27. Ref: http://www.ngsp .org/CAPdata.as p Ordering Provider: LUCINDA OVALLE Report Released Date/Time: Oct 29, 2023 10:41 AM Reporting Lab: [address] [address] Performing Lab: [address] [address] HEMOGLOBIN A1C 6.1 H 4.0-5.6 Apr 23, 2024 09:36 AM [facility] LIPID PANEL FASTING SERUM Specimen Type: SERU M No comment entered. Ordering Provider: LUCINDA OVALLE Report Released Date/Time: Oct 29, 2023 10:41 AM Reporting Lab: [address] [address] Performing Lab: [address] [address] CHOLESTEROL 124 mg/dL TRIGLYCERIDE 307 mg/dL H 0-150 LDL calculated Reflex to dLDL mg/dL 0-12 9 CHOL/HDL 3.8 HDL CHOLESTEROL 33 mg/dL L 40-60 LDL DIRECT 51 mg/dL Vital Signs: All taken on the encounter date This section contains inpatient and outpatient Vital Signs collected on the date of the Encounter. Date/Time Temperature Pulse Blood Pressure Respiratory Rate SP02 Pain Height Weight Body Mass Index Source Apr 24, 2024 10:08 AM 98.3 89 137/74 16 98 6 173 25 [facility] Social History: Smoking Status (Most current) and Tobacco Use (All prior to encounter date) This section includes the most current, and the historical, smoking and tobacco- related health factors from the [place] facility where the Encounter took place. Current Smoking Status This section includes the most current smoking, or tobacco-related health factor, from the [place] facility where the Encounter took place. Date/Time Current Smoking Status Comment James capps Apr 24, 2024 10:00 AM VA-TOBACCO USE FOR MICHAEL CIGARETTES [facility] Tobacco Use History This section includes a history of the smoking, or tobacco-related health factors, that were collected on or before the date of the Encounter. The data comes from the [place] facility where the Encounter took place. Date/Time Smoking Status/Tobac co Use Comment Facility Apr 24, 2024 10:00 AM VA-TOBACCO USE FORMER CIGARETTES [place] [facility] [place] [facility] Apr 24, 2023 10:30 AM VA-TOBACCO FORMER USER [facility] [place] [facility] Apr 24, 2023 10:30 AM VA-TOBACCO QUIT 15 YRS OR MORE [place] [facility] [place] [facility] Mar 22, 2022 11:00 AM VA-TOBACCO FORMER USER [facility] [place] [facility] Mar 22, 2022 11:00 AM VA-TOBACCO QUIT 15 YRS OR MORE [place] [facility] [facility] Oct 21, 2020 09:30 AM VA-TOBACCO NEVER USED [place] [facility] [place] [facility] Nov 04, 2019 08:30 AM VA-TOBACCO FORMER USER [place] [facility] [place] [facility] Nov 04, 2019 08:30 AM VA-TOBACCO QUIT 15 YRS OR MORE [place] [facility] [place] [facility] May 06, 2018 08:27 AM VA-TOBACCO FORMER USER [place] [facility] [place] [facility] May 06, 2018 08:27 AM VA-TOBACCO QUIT 15 YRS OR MORE [place] [facility] [place] [facility] Nov 05, 2017 09:54 AM QUIT TOBACCO USE > 7 YEARS AGO [place] [facility] [place] [facility] June 28, 2016 09:36 AM QUIT TOBACCO USE > 7 YEARS AGO [place] [facility] [place] [facility] Mar 15, 2015 10:54 AM LIFETIME NON-TOBACCO USER quit cigs. 1998 [place] [facility] [place] [facility] Nov 14, 2004 02:40 PM HISTORY OF SMOKING [place] [facility] [place] [facility] May 18, 2003 09:05 AM HISTORY OF SMOKING quit August 1998 [place] [facility] [place] [facility] Jun 09, 2002 08:40 AM HISTORY OF SMOKING quit 99. [place] [facility] [facility] Jun 09, 2002 08:40 AM QUIT TOBACCO USE > 7 YEARS AGO [place] [facility] Jun 10, 2001 08:50 AM HISTORY OF SMOKING quit 1998 [facility] Jun 10, 2001 08:50 AM QUIT TOBACCO USE 1-7 YEARS AGO [facility] Jun 08, 2000 02:55 PM HISTORY OF SMOKING quit 2yrs ago [facility] Radiology Reports: +/- 30 days of [...] the Encounter. The data comes from all [place] treatment facilities. Date/Time Radiology Report Provider Source Apr 24, 2024 11:26 AM SPINE CERVICAL, 4 OR 5 VIEWS: QUENTIN DENNY [id number] -1948 [facility] Date: APR 24, 2024@11:26 Req Phys: LUCINDA OVALLE Loc: [facility] PACT EIGHT MD (Req'g Loc) Img Loc: [facility] 1 Service: [place] [address] (Case [id number] COMPLETE) SPINE CERVICAL, 4 OR 5 VIEWS (RAD Detailed) CPT:53818 Reason for Study: neck pain x 1 month Clinical History: Report Status: Verified Date Reported: APR 24, 2024 Date Verified: APR 24, 2024 Md Allergy Immunology E-Sig:/ES/KADEN ZAMORA JR Report: Study: AP, lateral [...] Primary Interpreting Staff: KADEN ZAMORA JR, Radiologist (Md Allergy Immunology) /KADEN ROBB JR [facility] [place] [facility] Encounter Notes: All associated encounter notes This section contains the clinical notes associated to the Encounter. Date/Time Encounter Note(s) Provider Source Apr 24, 2024 12:20 PM LETTERS: LOCAL TITLE: PATIENT LETTER (T) STANDARD TITLE: LETTERS DATE OF NOTE: APR 24, 2024@12:20 ENTRY DATE: APR 24, 2024@12:21:01 AUTHOR: LUCINDA OVALLE EXP COSIGNER: URGENCY: STATUS: COMPLETED DEPARTMENT OF [facility] Toll Free Number Primary Care Telephone Assistance can be reached at extension [phone] [facility] scheduling can be reached at extension [phone] [facility] scheduling can be reached at ext [phone] QUENTIN DENNY 63 [address] [place], [place], [address] Dear , significant arthritis and degenerative disc disease in your spine. physical therapy and mobilization can be helpful to reduce pain and increase mobility. Dr. Lucinda Ovalle SPINE CERVICAL, 4 OR 5 VIEWS (RAD Detailed) CPT:70483 Reason for Study: neck pain x 1 month Clinical History: Report Status: Verified Date Reported: APR 24, 2024 Date Verified: APR 24, 2024 Md Allergy Immunology E-Sig:/ES/KADEN ZAMORA JR Report: Study: AP, lateral [...] in the cervical spine, as described above. Sincerely, Your Primary Care Team [facility] [address] [address] [place] [address] [phone] [facility] [address] [place] [address] [place] [address] [facility] [address] [place] [id number] [place] [address] LUCINDA OVALLE [place] [facility] [facility] Apr 24, 2024 10:23 AM PHYSICIAN NOTE: LOCAL TITLE: NOTE STANDARD TITLE: PHYSICIAN NOTE DATE OF NOTE: APR 24, 2024@10:23 ENTRY DATE: APR 24, 2024@10:23:09 AUTHOR: LUCINDA OVALLE EXP COSIGNER: URGENCY: STATUS: QUENTIN BARNES is a 74 year old [place] MALE who is being seen today in primary care for routine follow up. CARE TEAM Community Primary Care Provider: DR. Kiko Gresham, [facility] Specialists: nephrology- Dr. Sethi Community Specialists: vascular- Dr. Gomez, [facility] GI- Dr. Kingston Cardiology- DR. Rodriguez physiatry- PSS- injections in L4 HISTORY PERIOD OF SERVICE - SERVICE CONNECTED % - 0 HISTORY OF PRESENT ILLNESS Patient presents today for routine follow-up some neck pain x 1 mo- no fall, no injury. asking for xray and PT RELEVANT PAST MEDICAL HISTORY Active problems - Computerized Problem List is the source for the followin. Iron deficiency anemia 2. Bilateral osteoarthritis of knees 3. Carotid artery stenosis s/p left carotid endarterectomy 4. Raynaud's phenomenon 5. Esophageal stricture 6. Type 2 diabetes mellitus (SNOMED CT 69602861) 7. 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 Chronic obstructive lung disease (SNOMED CT 63708166) 9. Diffuse spasm of esophagus (SNOMED CT 46512462) s/p dilatation by Dr joey serrano - 10. Chronic Renal disease 11. Hyperlipidemia (SNOMED CT 29385777) 12. Coronary Artery Disease * 13. Psoriasis * 14. Male erectile disorder PER LETTER BY UROLOGY DR HAYWARD-MAR 2001 PT IS ON VIAGRA S/O RETROPUBIC RADICAL PROSTATECTOMY 15. Family history of malignant neoplasm of prostate RADICAL PROSTATECTOMY AND ALSO LYMPH NODE DISSECTION 16. Essential hypertension (SNOMED CT 82519985) PAST SURGICAL HISTORY aortic aneurysm repair prostatectomy bilateral TKR left carotid endarterectomy FAMILY HISTORY Mother: at age 92, dementia Father: 42 ETOH Siblings: 2 brother - HTN sister- HTN SOCIAL HISTORY [place] 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- [employer] Alcohol Use: occasional, never problematic Tobacco Use: quit 25 years, 30 years x 1 ppd Exercise: golf 2x per week, treadmill 1/2 mile ALLERGIES VARDENAFIL MEDICATIONS Active and Recently Outpatient Medications (excluding Supplies): Active Outpatient Medications Status 1) ASCORBIC ACID 500MG TAB TAKE ONE TABLET BY MOUTH ONCE DAILY ACTIVE FOR VITAMIN/NUTRITION SUPPLEMENT Indication: FOR INADEQUATE VITAMIN C 2) CARBOXYMETHYLCELLULOSE NA 0.5% OPH SOLN INSTILL 1 DROP INTO ACTIVE EACH EYE FOUR TIMES A DAY Indication: FOR DRY EYE 3) EMPAGLIFLOZIN 10MG TAB TAKE ONE TABLET BY MOUTH ONCE DAILY ACTIVE Indication: FOR TYPE 2 DIABETES MELLITUS 4) FAMOTIDINE 40MG TAB TAKE ONE TABLET BY MOUTH ONCE DAILY FOR ACTIVE STOMACH ACID Indication: FOR GASTROESOPHAGEAL REFLUX DISEASE 5) FERROUS GLUCONATE 324MG TAB TAKE TWO TABLETS BY MOUTH ONCE ACTIVE (S) DAILY Indication: TO SUPPLEMENT IRON 6) MULTIVIT/OPHTH AREDS2/LUTE/ZEAX CAP/TAB TAKE 1 CAPSULE BY ACTIVE MOUTH TWICE DAILY IN THE MORNING AND EVENING, WITH FOOD Indication: FOR VITAMIN SUPPLEMENTATION 7) PANTOPRAZOLE NA 40MG EC TAB TAKE ONE TABLET BY MOUTH TWICE ACTIVE DAILY Indication: FOR EXCESSIVE PRODUCTION OF STOMACH ACID 8) TADALAFIL 20MG TAB TAKE ONE TABLET BY MOUTH NEEDED ACTIVE Inactive Outpatient Medications Status 1) CLOTRIMAZOLE 1% TOP SOLN APPLY 1 DROP TOPICALLY ONCE DAILY FOR FUNGAL INFECTION. APPLY WHEN NAIL IS DRY (NOT AFTER SHOWER/BATH). USE FOR AT LEAST 9-12 MONTHS. REGULAR NAIL CARE IS RECOMMENDED Indication: FOR FUNGAL INFECTION OF THE SKIN 2) HYDROPHILIC (EQV EUCERIN) TOP CREAM APPLY A SMALL AMOUNT TOPICALLY ONCE DAILY TO DRY, CRACKED SKIN ON FEET Indication: FOR DRY SKIN Active Non-VA Medications Status 1) Non-VA ALBUTEROL [...] ACTIVE DOSE) BY MOUTH ONCE DAILY 9) no longer takingNon-VA TRAMADOL HCL 50MG TAB 50MG BY MOUTH ACTIVE 19 Total Medications REVIEW OF SYMPTOMS NEGATIVE FOR: [...] - - - - - - B/P: 137/74 (04/24/2024 10:08) pulse: 89 (04/24/2024 10:08) resp: 16 (04/24/2024 10:08) temp: 98.3 F [36.8 C] (04/24/2024 10:08) Ht: 70 in [177.8 cm] (04/24/2023 10:25) Wgt: 173 lb [78.47 kg] (04/24/2024 10:08) BMI: BMI: 24.9 Exam: - - - - - - - General: A&O x 3, no acute distress, normal affect and mood Neck: left carotid scar CV: RRR S1S2, no murmur Resp: LCTA bilat, no wheezing, rales or rhonchi Neuro: grossly intact, no visible tremor, normal memory and speech Extremities: normal movement of extremities, normal gait, normal strength no LE edema spine: fairly good ROM cervical spine, no spinous process tenderness RECENT LABS LAB CHEMISTRY & HEMATOLOGY Collection DT Specimen Test Name Result Units Ref Range 04/23/2024 09:36 BLOOD !! HEMOGLOBIN A1C 6.1 H % 4.0 - 5.6 04/23/2024 09:36 SERUM LDL DIRECT 51 mg/dL <10 - 120 CHOLESTEROL 124 mg/dL <7 - 199 TRIGLYCERIDE 307 H mg/dL 0 - 150 LDL calculated Reflex to dLDL mg/dL 0 - 129 CHOL/HDL 3.8 HDL CHOLESTEROL 33 L mg/dL 40 - 60 ASSESSMENT AND PLAN Active problems - Computerized Problem List is the source for the following: Iron deficiency anemia- on iron supplements. is taking pantoprazole 40 mg BID due ot esophageal strictures. likely will be hard to absorb iron Abdominal aortic aneurysm - s/p AAA repair. sees vascular surgery Carotid artery stenosis s/p left CEA Type 2 diabetes mellitus (SNOMED CT 11778260)- good diabetic control- on empagliflozin Chronic obstructive lung disease (SNOMED CT 12604215)- on inhalers though outside pCP Chronic Renal disease- sees dr. Sethi. no longer on lisinopril Hyperlipidemia (SNOMED CT 96160047)- high triglycerides, otherwise good LDL Prostate Cancer- s/p prostatectomy >20 years ago Reflux Esophagitis- now on pantorazole 40 mg BID- has needed esophageal stricture dilations with Dr. Kingston Essential hypertension (SNOMED CT 80361326) - good BP control cervicalgia- for about 1 month- will get xray and refer to PT HEALTH MAINTENANCE Colonoscopy - up to date- sees [facility] Abdominal Aortic Aneurysm Screening- known AAA, s/p repair Prostate screening - known prostate CA_ s/p prostatectomy Tetanus: due every 10 years Pneumonia Vacccine: Flu Vaccine: due yearly Covid Vaccine: due yearly FOLLOW UP f/u in 6 mo VISIT TYPE:a MODERATE complexity visit where 30 minutes was spent in direct patient care, review of records and documentation. /noe/ LUCINDA OVALLE D.O. PHYSICIAN Signed: 04/24/2024 10:52 LUCINDA OVALLE [place] [facility] [place] [facility] Apr 24, 2024 10:02 AM PREVENTIVE MEDICINE NURSING NOTE: LOCAL TITLE: CLINICAL REMINDERS/NURSING STANDARD TITLE: PREVENTIVE MEDICINE NURSING NOTE DATE OF NOTE: APR 24, 2024@10:02 ENTRY DATE: APR 24, 2024@10:02:43 AUTHOR: ALESSANDRO MILTON EXP COSIGNER: URGENCY: STATUS: COMPLETED CLINICAL REMINDERS/NURSING Has ADDENDA Advance Directive Screen MH AD: Patient has an up-to-date Advance Directive at an outside, non-va facility and was asked to forward a copy to his/her clinician. Suicide Screen: C-SSRS Screening [place] Suicide Severity Rating Scale (C-SSRS) screener 1. Over the past month, have you wished you were or wished you could go to sleep and not wake up? No 2. Over the past month, have you had any actual thoughts of killing yourself? No 3. Over the past month, have you been thinking about how you might do this? Response not required due to responses to other questions. 4. Over the past month, have you had these thoughts and had some intention of acting on them? Response not required due to responses to other questions. 5. Over the past month, have you started to work out or worked out the details of how to kill yourself? Response not required due to responses to other questions. 6. If yes, at any time in the past month did you intend to carry out this plan? Response not required due to responses to other questions. 7. In your lifetime, have you ever done anything, started to do anything, or prepared to do anything to end your life (for example, collected pills, obtained a gun, gave away valuables, went to the roof but didn't jump)? No 8. If YES, was this within the past 3 months? Response not required due to responses to other questions. Homelessness/Food Insecurity Screen: In the past 2 months, have you been living in stable housing that you own, rent, or stay in as part of a household? Yes - Living in stable housing. Are you worried or concerned that in the next 2 months you may NOT have stable housing that you own, rent, or stay in as part of a household? No - Not worried about housing near future [facility] [place] reports the following: Within the past 12 months, you worried whether your food would run out before you got money to buy more. Never true Within the past 12 months, the food you bought just didn't last and you didn't have money to get more. Never true Depression Screening: Perform PHQ-2 A PHQ-2 screen was performed. The score was 0 which is a negative screen for depression. Over the past two weeks, how often have you been bothered by the following problems? 1. Little interest or pleasure in doing things Not at all 2. Feeling down, depressed, or hopeless Not at all Falls & Incontinence Screen: Falls Screen: During the past 12 months, did the patient report any falls? 4. No falls within the past year. Incontinence Screen: During the past 12 months, has the patient has any characteristics of incontinence (ability, voiding, leakage, etc.)? YES - Incontinence is a problem for this patient. Is urinary incontinence NEW for this patient? NO - Incontinence is NOT a new problem. What is the current treatment? protective undergarments Tobacco Use Screening: The patient is a former cigarette smoker. Quit smoking GREATER THAN OR EQUAL to 15 years. The patient has never used other types of tobacco. Alcohol Use Screen (AUDIT-C): Alcohol Screen: SCREEN FOR ALCOHOL (AUDIT-C) An alcohol screening test (AUDIT-C) was negative (score=3). 1. How often did you have a drink containing alcohol in the past year? Consider a drink to be a 12 ounce can or bottle of regular beer, 8 ounces of malt liquor, a 5 ounce glass of table wine, or a 1.5 ounce shot of liquor (like scotch, gin, or vodka). Two to three times per week 2. How many drinks containing alcohol did you have on a typical day when you were drinking in the past year? One or two drinks 3. How often did you have six or more drinks on one occasion in the past year? Never Sexual Orientation: The patient thinks of their sexual orientation as: Prefer not to answer Influenza Immunization: The patient has received the seasonal influenza vaccine for the current season at another location. Documented: INFLUENZA, UNSPECIFIED FORMULATION Historical Date Administered: Nov 29, 2023 Series: Complete Outside Location: Outside Healthcare Provider Information Source: FROM PATIENT'S RECALL /noe/ ALESSANDRO MILTON LPN License Practical Nurse Signed: 04/24/2024 10:08 04/24/2024 ADDENDUM STATUS: COMPLETED COVID-19 Immunization: Vaccine given previously - no written/electronic documentation available /noe/ ALESSANDRO MILTON LPN License Practical Nurse Signed: 04/24/2024 10:18 ALESSANDRO MILTON [facility]
--- OUTSIDE RECORDS SUMMARY | 2024-05-05 10:00 | XMS_ITS | Encounter Summary ---
Author Name [facility] [place] [facility] [place] [facility] [place] Address [address] [place] [address] Care Team Providers Care Slab Stripper Name Role Phone TAMRA HINSON [facility] Providers: All historical and [...] POINT OF SERVICE [facility] Jun 04, 2017 [id number] QUENTIN DENNY PATIENT [employer] POINT OF SERVICE [facility] CHOI E Feb 19, 2017 [id number] QUENTIN DENNY PATIENT [place] PRESCRIPT ION [facility] Jun 04, 2017 [id number] [phone] CELSAQUENTIN BE PATIENT CAREMARK PRESCRIPT ION [facility] AND[facility] RS Feb 19, 2017 [id number] QUENTIN DENNY PATIENT [place] PRESCRIPT ION [facility] Feb 19, 2017 [id number] [phone] QUENTIN DENNY PATIENT [place] PRESCRIPT ION [facility] Feb 19, 2017 [id number] [phone] QUENTIN DENNY PATIENT CAREMARK PRESCRIPT ION NAM ANDLE RS Aug 19, 2005 [id number] QUENTIN DENNY PATIENT [place]ARK PRESCRIPT ION [facility] RS Aug 19, 2005 [id number] QUENTIN DENNY PATIENT 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 POINT OF SERVICE [facility] Feb 19, 2017 [id number] QUENTIN DENNY PATIENT 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 POINT OF SERVICE [facility] Feb 19, 2017 [id number] [phone] [id number] [phone] QUENTIN DENNY PATIENT 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 POINT OF SERVICE [facility] Feb 19, 2017 [id number] QUENTIN DENNY PATIENT NAMHANDLE RS BENEFIT PLAN POINT OF SERVICE [facility] Jun 04, 2017 [id number] QUENTIN DENNY PATIENT NAMHANDLE RS BENEFIT PLAN PREFERRED PROVIDER ORGANIZAT ION (PPO) STAND TRACI Aug 19, 2005 [id number] [phone] QUENTIN DENNY PATIENT MEDICARE ([facility]) MEDICARE () PART B Apr 19, 2013 PART B [id number] [phone] QUENTIN DENNY PATIENT MEDICARE ([facility]) MEDICARE () PART B Apr 19, 2013 PART B [id number] QUENTIN DENNY PATIENT MEDICARE ([facility]) MEDICARE () PART B Apr 19, 2013 PART B [id number] [phone] QUENTIN DENNY PATIENT MEDICARE ([facility]) MEDICARE () PART B Apr 19, 2013 PART B [id number] QUENTIN DENNY PATIENT MEDICARE ([facility]) MEDICARE () PART A Mar 22, 2013 PART A [id number] QUENTIN DENNY PATIENT MEDICARE ([facility]) MEDICARE (M) PART A Mar 22, 2013 PART A [id number] QUENTIN DENNY PATIENT MEDICARE (WNR) MEDICARE (M) PART A Mar 22, 2013 PART A [id number] QUENTIN DENNY PATIENT MEDICARE (WNR) MEDICARE (M) PART A Mar 22, 2013 PART A [id number] [phone] QUENTIN DENNY PATIENT MEDICARE (WNR) MEDICARE (M) PART A Mar 22, 2013 PART A [id number] QUENTIN DENNY PATIENT MEDICARE (WNR) MEDICARE (M) PART B Mar 22, 2013 PART B [id number] QUENTIN DENNY PATIENT Selected Encounter This section includes the information on record at [place] for the Encounter. Date/Time Encounter Type Encounter Description Reason Provider Source May 05, 2024 02:00 PM SELF CARE MNGMENT TRAINING PHYSICAL THERAPY ICD-10-CM M54.2 PATT Forrest Encounter Template Text not used by [place] Assessments - Encounter Diagnoses This section includes the primary and secondary diagnoses documented for the Encounter. Date/Time Primary/Secondary Diagnosis Diagnosis Name Provider Source May 21, 2024 08:57 AM PRIMARY PATT Forrest Plan of Treatment: Future Appointments (+ 6 months) and Future Tests (+/- 45 days) The Plan of Treatment section includes future care activities for the patient from all [place] treatmentfacilities. This section includes future appointments and future orders which are active, pending or scheduled. Future Appointments This section includes appointments that were scheduled to occur 6 months from the date of the Encounter, up to a maximum of 20 appointments. The data comes from all [place] treatment facilities. Appointment Date/Time Appointment Type Appointme nt Facility Name May 06, 2024 11:00 AM [place] [facility] May 16, 2024 10:30 [facility] 23, [facility]24 09:00 AM [facility] May 23, 2024 01:30 PM [place] [facility] May 30, 2024 09:30 AM AMBULATORY - REHAB MEDICIN [facility] Jun 06, 2024 09:30 AM AMBULATORY - REHAB MEDICIN [facility] Jul 23, 2024 09:30 AM [place] [facility] Aug 27, 2024 10:00 AM [place] [facility] Oct 27, 2024 09:00 AM [place] [facility] Lab Results: +/- 30 days of [...] Comment Apr 23, 2024 09:36 AM [facility] HEMOGLOBIN A1C PANEL BLOOD Specimen Type: BLOOD [...] Oct 29, 2023 10:41 AM Reporting Lab: [facility] [address] [id number] Performing Lab: [address] [address] HEMOGLOBIN A1C 6.1 H 4.0-5.6 Apr 23, 2024 09:36 AM [facility] LIPID PANEL FASTING SERUM Specimen Type: SERU M No comment entered. Ordering Provider: TAMRA HINSON Report Released Date/Time: Oct 29, 2023 10:41 AM Reporting Lab: [facility] [address] [id number] Performing Lab: [address] [address] CHOLESTEROL 124 mg/dL TRIGLYCERIDE 307 mg/dL H [...] AM SPINE CERVICAL, 4 OR 5 VIEWS: DENISHAQEUNTIN [id number] [id number] M Exm Date: APR 24, 2024@11:26 Req Phys: TAMRA HINSON Loc: [facility] PACT EIGHT MD (Req'g Loc) Img Loc: [facility] 1 Service: [place] [address] (Case [id number] COMPLETE) SPINE CERVICAL, 4 OR 5 VIEWS (RAD Detailed) CPT:72605 Reason for Study: neck pain x 1 month Clinical History: Report Status: Verified Date Reported: APR 24, 2024 Date Verified: APR 24, 2024 Tennis Racket Repairer E-Sig:/ES/KADEN ZAMORA JR Report: Study: AP, lateral [...] Primary Interpreting Staff: KADEN ZAMORA JR, Radiologist (Tennis Racket Repairer) /KADEN ROBB JR [facility] Encounter Notes: All associated encounter notes This section contains the clinical notes associated to the Encounter. Date/Time Encounter Note(s) Provider Source May 05, 2024 01:55 PM PHYSICAL THERAPY C ONSULT: LOCAL TITLE: PHYSICAL THERAPY CONSULT STANDARD TITLE: PHYSICAL THERAPY CONSULT DATE OF NOTE: MAY 05, 2024@13:55 ENTRY DATE: MAY 05, 2024@13:55:13 AUTHOR: PATT MOLINA COSIGNER: URGENCY: STATUS: COMPLETED Initial Evaluation date: 05/05/24 Progress Note Date: 06/05/24 Treatment #: eval Treatment time: 40 Diagnosis: Cervicalgia(ICD-10-CM M54.2) Provider: TAMRA HINSON PT Treatment Precautions: Patient identified by full name and date of Vitals: HR: 90, regular BP: 121/69 SUBJECTIVE: History of Current injury: Patient states they have been getting headaches on and off since they had their last cortisone injection for their L shoulder. Patient notes neck pain here and there before the injection, but otherwise it wasn't too bad. Patient states their headache pain feel central in the neck and is diffuse, not primarily located in any specific area. Patient denies consistent referred symptoms into the arms. Patient notes the pain is primarily constant but can worsen and have flare ups and headaches. Patient states the headaches feel painful , denies light or sound sensitivity with the headaches. Patient states primary aggravating factors include looking up, turning their head. Patient denies major trauma or past surgical procedures to the neck or the shoulders. Notes they have a hx of CSI in the L shoulder over the past 7-8yrs. Patient notes a hx of aortic aneurysm repair, prostatectomy, bilateral TKR, left carotid endarterectomy. Pain current 6-7/10 Pain worst 6-7/10 Pain best 6-7/10 Current exercise routine: walking daily Patient Goal: get rid of the headaches Number of days per week with pain: 08/25 SANE report Please rate your ability to use your injured area on a 0% to 100% scale, with 0% being unable to use the injured area and 100% being normal use of injured area in your daily activity: OBJECTIVE: Red flags: Recent Trauma- Age (50+)- Hx of Cancer- Fever/chills/night sweats- Unexplained weight loss- Recent infection- Immunosuppression - Night pain- Saddle anesthesia- Bowel/bladder dysfunction - LE neurological deficit- Psychosocial flags: mental health dx- entrenched/unhelpful beliefs about pain- clinically relevant catastrophization- signs of kinesiophobia- Imaging findings: Report: Study: AP, lateral and left and [...] in the cervical spine, as described above. Posture: forward head rounded shoulders Neuro: UE Neuro Screen: (R) (L) Reflexes: (0, 1, 2, 3, 4) C7 Triceps 2 2 C6 BR 2 2 C5 Biceps 2 2 Myotomes: See MMT Dermatomes: (N=Normal, I=Impaired) C5 Radial N N C6 Thumb N N C7 Middle N N C8 Pinkie N N T1 Ulnar N N Tinels Sign: (+,-) Cubital fossa - - Gyons canal - - Carpal tunnel - - ULTT+ (+,-) Median nerve - - Ulnar nerve - - Radial nerve - - According to Dipak et al,[18] selected combinations of the following clinical findings are effective in ruling out and ruling in cervical spine myelopathy. Combinations of three of five or four of five of these tests enable post-test probability of the condition to 94.99%: NEGATIVE 1. Gait deviation 2. Hoffmanns test 3. Inverted supinator sign 4. Babinski sign 5. Age 45 years or older * = pain during testing Cervical ROM Flexion(60-90): 30 Extension: 50* Right SB: 10 Left SB: 10 Right Rotation: 50 Left Rotation: 50 Shoulder ROM: WNL and non-concordant for primary symptoms Cervical Strength:(_/5) Flexion: 4* Extension: 5 Right SB: 5 Left SB: 5 Right Rotation: Left Rotation: Deep neck flexor endurance test Performing the Test: Tuck patients chin in and lift off table 1 inch. The examiner looks for substitution of the platysma or SCM muscle. Normal Values: Men: 38.9 seconds, Women: 29.4 seconds SCORE: Shoulder Strength:(_/5) Right Left Flexion: 5 5 Abduction: 5 5 Scaption: 5 5 Extension: Internal Rot: 5 5 External Rot: 5 5 Elbow flexion 5 5 Elbow extension 5 5 Wrist flexion 5 5 Wrist extension 5 5 Thumb extension 5 5 Finger abduction 5 5 Finger adduction 5 5 Rhomboids Mid trap Low trap Cervical Special Tests Right Left Spurlings compression (+) (+) (Sn .50 Sp .90) Distraction (-) (-) (Sn .44 Sp .90) Sharps-Lucrecia (-) (-) (Sn .69 Sp .96) Alar ligament test (-) (-) Clinical prediction rule (-) (-) 3 positive signs = Sn .39 Sp .94 for radiculopathy Less 60 deg cervical rotation to involved side Positive ULTT A Positive distraction Positive Spurlings test Shoulder Special Tests: Right Left Hawking's Gagan (-) (-) Neer (-) (-) Empty can (-) (-) Lateral Diego (-) (-) Passive distraction (SLAP) (-) (-) Passive compression (SLAP) (-) (-) Modified dynamic labral shear (-) (-) Apprehension/Relocation (bankart) (-) (-) Palpation: min/mod TTP cervical paraspinals Joint mobility: slight hypomobility CPA glides and min/mod TTP C1-T5 Interventions: Therapeutic Exercise: Mins: 10 Seated Cervical Retraction 10 reps Seated Scapular Retraction 10 reps Standing Shoulder Horizontal Abduction with Resistance 10 reps red Seated Assisted Cervical Rotation with Towel 10 reps Mid-Lower Cervical Extension SNAG with Strap 10 reps Manual therapy: Mins: Neuro re-ed: Mins: Other: Mins: Modalities: Mins: [] contraindication screen completed prior to modality [] skin intact pre/post modality Access Code: [email or web address] URL: [email or web address] Date: 05/05/2024 Prepared by: Patt Molina Exercises - Heat - 1-2 x daily - 7 x weekly - Seated Cervical Retraction - 1-2 x daily - 7 x weekly - 2 sets - 10 reps - Seated Scapular Retraction - 1-2 x daily - 7 x weekly - 2 sets - 10 reps - Standing Shoulder Horizontal Abduction with Resistance - 1 x daily - 7 x weekly - 3 sets - 10 reps - Seated Assisted Cervical Rotation with Towel - 1 x daily - 7 x weekly - 2 sets - 10 reps - Mid-Lower Cervical Extension SNAG with Strap - 1 x daily - 7 x weekly - 2 sets - 10 reps Patient education: Mins: 10 Discussed potential etiology of symptoms with patient including potential structures involved and how this relates to exercises prescribed and POC discussing frequency and duration of services to be provided with patient verbalizing good understanding and agreement with POC. Provided written HEP to patient with therex from today reviewing proper form sets reps and frequency and safety precautions with patient verbalizing and demonstrating good understanding in clinic. Discussed the use of heat including parameters for use and safety precautions providing written instruction for carryover at home. ASSESSMENT: Patient is a 74yo seen for physical therapy evaluation following referral for Cervicalgia(ICD-10-CM M54.2). PMH significant for: 1. Iron deficiency anemia 2. Bilateral osteoarthritis of knees 3. Carotid artery stenosis s/p left carotid endarterectomy 4. Raynaud's phenomenon 5. Esophageal stricture 6. Type 2 diabetes mellitus 7. Endoscopy abnormal 8. Chronic obstructive lung disease 9. Diffuse spasm of esophagus 10. Chronic Renal disease 11. Hyperlipidemia 12. Coronary Artery Disease 13. Psoriasis 14. Male erectile disorder 15. Family history of malignant neoplasm of prostate 16. Essential hypertension Patient presents with primary complaint of acute on chronic neck pain and headaches with no specific AIDEN. No referred symptoms noted, no evidence of dermatomal snesation loss or myotomal weakness, UE reflexes normal 2+, - clonus. Pain rated 6-7/10 at current, best, worst. Primary aggravating factors include looking up, turning their head. On physical assessment, patient primary symptoms reproduced with repeated cervical extension, palpation of bilateral cervical parapsinals, CPA glides in cervical and upper throacic spine. Additional impairments that may contribute to condition include impaired posture forward head, rounded shoulders, impaired DNF and periscap strength, impaired cervical ROM, impaired cervical flexibility. Based on patient hx and findings of assessment, symptoms appear to be consistent with x-ray findings with a myofascial component as well; impaired strength/stability of the neck and mid back likely contributing as well. Patient reports these symptoms impact their ability to complete their normal daily tasks like looking up, turning their head. Patient requires skilled physical therapy services in order to address these impairments ad activity limitations and to achieve patient goal of get rid of the headaches . GOALS: in 4-6weeks, patient will demonstrate: consistent carryover of HEP 5/7 days per week with patient able to independently teach back 75% of exercises 2pt decrease in pain level at worst to improve patient ability to complete most symptomatic tasks decrease in total days with pain by 2 days to improve patient QOL 10deg improvement in cervical extension ROM 10deg improvement in cervical rotation ROM 1/2 grade improvement in cervical flexion MMT PLAN: DIscussed POC with patient who verbalizes agreement with skilled PT services focusing on improving cervical ROM, improving UE flexibility, progressive DNF and periscap strengthening, HEP teaching and progression [x]Low impact cardio: [x]Nustep []Recumbent bike []Recumbent elliptical [x]UBE [x]Manual: [x]STM/DTM []METs/SCS [x]IASTM [x]Joint mobilizations [x]Therex: [x]Progressive UQ []Progressive Core []Progressive LQ [x]UQ flex [] Lumbar flex []LQ flex []Foam rolling []Proprioception []Neuro Re-education: []Static []Dynamic []Dual-Task [x]Education: [x]Posture []Ergonomics [x]Bodymechanics [x]Self-care strategies []PNE []Modalities(PRN): []Heat/Ice []Estim/Tens []Mechanical traction []K-tape [] Biofreeze /es/ PATT MOLINA PT, DPT PHYSICAL THERAPIST Signed: 05/05/2024 15:06 PATT MOLINA LOOMIS
--- OUTSIDE RECORDS SUMMARY | 2024-05-06 07:00 | XMS_ITS ---
Author Name [facility] [place] [facility] [place] Address [address] [place] [id number] Care Team Providers Care Marine Firefighter Name Role Phone TAMRA HINSON Primary Care Provider [facility] Insurance Providers: All historical and [...] POINT OF SERVICE [facility] Jun 04, 2017 [id number] DENISHA QUENTIN PATIENT AETNA POINT OF SERVICE [facility]BP CHOI E Feb 19, 2017 [id number] DENISHA QUENTIN PATIENT CAREMARK PRESCRIPT ION [facility] Jun 04, 2017 [id number] QUENTIN DENNY PATIENT CAREMARK PRESCRIPT ION [facility] TRICIA RS Feb 19, 2017 [id number] [phone] DENISHA QUENTIN PATIENT CAREMARK PRESCRIPT ION [facility] Feb 19, 2017 [id number] [phone] QUENTIN DENNY PATIENT CAREMARK PRESCRIPT ION [facility] Feb 19, 2017 [id number] QUENTIN DENNY PATIENT CAREMARK PRESCRIPT ION RASHEEDA ANDLUIZ RS [birth year] 2005 [id number] [phone] QUENTIN DENNY PATIENT CAREMARK PRESCRIPT ION RASHEEDA ANDLUIZ RS Aug 19, 2007 [id number] QUENTIN DENNY PATIENT 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 BENEFIT PLAN POINT OF SERVICE MHBP Feb 19, 2017 [id number] [phone] QUENTIN DENNY PATIENT 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 BENEFIT PLAN POINT OF SERVICE [facility] Feb 19, 2017 [id number] [phone] QUENTIN DENNY PATIENT 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 BENEFIT PLAN POINT OF SERVICE [facility] Feb 19, 2017 [id number] QUENTIN DENNY PATIENT NAMHANDLUIZ RS BENEFIT PLAN POINT OF SERVICE [facility] Jun 04, 2017 [id number] [phone] QUENTIN DENNY PATIENT NAMHANDLE RS BENEFIT PLAN PREFERRED PROVIDER ORGANIZAT ION (PPO) STAND TRACI Aug 19, 2005 [id number] [phone] QUENTIN DENNY PATIENT MEDICARE ([facility] MEDICARE () PART B Apr 19, 2013 PART B [id number] QUENTIN DENNY PATIENT MEDICARE ([employer] [facility] MEDICARE () PART B Apr 19, 2013 PART B [id number] QUENTIN DENNY PATIENT MEDICARE ([employer] [facility] MEDICARE () PART B Apr 19, 2013 PART B [id number] QUENTIN DENNY PATIENT MEDICARE ([facility] MEDICARE () PART B Apr 19, 2013 PART B [id number] [phone] QUENTIN DENNY PATIENT MEDICARE ([facility] MEDICARE () PART A Mar 22, 2013 PART A [id number] [phone] QUENTIN DENNY PATIENT MEDICARE ([place]) MEDICARE (M) PART A Mar 22, 2013 PART A [id number] QUENTIN DENNY PATIENT MEDICARE (WNR) MEDICARE (M) PART A Mar 22, 2013 PART A [id number] QUENTIN DENNY PATIENT MEDICARE ([place]NR) MEDICARE (M) PART A Mar 22, 2013 PART A [id number] QUENTIN DENNY PATIENT MEDICARE ([place]NR) MEDICARE (M) PART A Mar 22, 2013 PART A [id number] QUENTIN DENNY PATIENT MEDICARE ([place]) MEDICARE (M) PART B Mar 22, 2013 PART B [id number] QUENTIN DENNY PATIENT Selected Encounter This section includes the information on record at [place] for the Encounter. Date/Time Encounter Type Encounter Description Reason Provider Source May 06, 2024 11:00 AM OFFICE O/P EST LOW 20 MIN OPTOMETRY ICD-10-CM H35.3132 Nexdtve age-related mclr degn, bilateral, intermed dry stage GUILLEN,MILAD Hancock E Encounter Template Text not used by [facility] Assessments - Encounter Diagnoses This section includes the primary and secondary diagnoses documented for the Encounter. Date/Time Primary/Secondary Diagnosis Diagnosis Name Provider Source May 26, 2024 12:08 PM PRIMARY Nexdtve age-related mclr degn, bilateral, intermed dry stage MINDY,MILAD [place] [facility] [place] [facility] May 26, 2024 12:08 PM SECONDARY Dry eye syndrome of bilateral lacrimal glands MILAD GUILLEN [place] [facility] [place] [facility] May 26, 2024 12:08 PM SECONDARY Presbyopia MILAD GUILLEN [place] [facility] [place] [facility] May 26, 2024 12:08 PM SECONDARY Presence of intraocular lens MILAD GUILLEN [place] [facility] [place] [facility] May 26, 2024 12:08 PM SECONDARY Type 2 diabetes mellitus without complications MILAD GUILLEN [place] [facility] [place] [facility] May 26, 2024 12:08 PM SECONDARY Unspecified ptosis of left eyelid GUILLEN,[place]AD [facility] [place] [facility] Plan of Treatment: Future Appointments (+ 6 months) and Future Tests (+/- 45 days) The Plan of Treatment section includes future care activities for the patient from [facility] [place] [facility] This section includes future appointments and future orders which are active, pending or scheduled. Future Appointments This section includes appointments that were scheduled to occur 6 months from the date of the Encounter, up to a maximum of 20 appointments. The data comes from all [place] treatment facilities. Appointment Date/Time Appointment Type Appointme nt Facility Name May 16, 2024 10:30 AM AMBULATORY - RE[facility]AB [facility] May 23, 2024 09:00 AM AMBULATORY - REHAB [facility] May 23, 2024 01:30 PM AMBULATORY - SUR[facility] May 30, 2024 09:30 AM AMBULATORY - REHAB [facility] Jun 06, 2024 09:30 AM AMBULATORY - REHAB [facility] Jul 23, 2024 09:30 AM [place] [facility] Aug 27, 2024 10:00 AM [place] [place] [facility] Oct 27, 2024 09:00 AM [facility] Lab Results: +/- 30 days of the encounter This section includes the Chemistry and Hematology Lab Results on record with [place] for the patient. Radiology Reports and Pathology Reports are provided separately, in subsequent sections. Lab Results This section contains the Chemistry/Hematology Results that were resulted 30 days before or 30 daysafter the date of the Encounter. Date/Time Source Result Type Result - Unit Interpretation Reference Range Specimen Type Comment Apr 23, 2024 09:36 AM [facility] [facility] HEMOGLOBIN A1C PANEL BLOOD Specimen Type: [...] Reporting Lab: [facility] [address] [id number] Performing Lab: [facility] [address] [address] HEMOGLOBIN A1C 6.1 H 4.0-5.6 Apr 23, 2024 09:36 AM [facility] LIPID PANEL FASTING SERUM Specimen Type: SERU M No comment entered. Ordering Provider: TAMRA HINSON Report Released Date/Time: Oct 29, 2023 10:41 AM Reporting Lab: [facility] [address] [address] Performing Lab: [facility] [address] [phone] CHOLESTEROL 124 mg/dL TRIGLYCERIDE 307 mg/dL H 0-150 LDL calculated Reflex to dLDL mg/dL 0-12 9 CHOL/HDL 3.8 HDL CHOLESTEROL 33 mg/dL L 40-60 LDL DIRECT 51 mg/dL Social History: Smoking Status (Most current) and Tobacco Use (All prior to encounter date) This section includes the most current, and the historical, smoking and tobacco- related health factors from the [place] facility where the Encounter took place. Current Smoking Status This section includes the most current smoking, or tobacco-related health factor, from the [place] facility where the Encounter took place. Date/Time Current Smoking Status Comment James rivera Apr 24, 2024 10:00 AM VA-TOBACCO USE FOR MICHAEL CIGARETTES [facility] Tobacco Use History This section includes a history of the smoking, or tobacco-related health factors, that were collected on or before the date of the Encounter. The data comes from the [place] facility where the Encounter took place. Date/Time Smoking Status/Tobac co Use Comment Facility Apr 24, 2024 10:00 AM VA-TOBACCO USE FORMER CIGARETTES [facility] Apr 24, 2023 10:30 AM VA-TOBACCO FORMER USER [facility] Apr 24, 2023 10:30 AM VA-TOBACCO QUIT 15 YRS OR MORE [facility] Mar 22, 2022 11:00 AM VA-TOBACCO FORMER USER [facility] [place] [facility] Mar 22, 2022 11:00 AM VA-TOBACCO QUIT 15 YRS OR MORE [place] [facility] [place] [facility] Oct 21, 2020 09:30 AM VA-TOBACCO NEVER USED [place] [facility] [place] [facility] Nov 04, 2019 08:30 AM VA-TOBACCO FORMER USER [place] [facility] [place] [facility] Nov 04, 2019 08:30 AM VA-TOBACCO QUIT 15 YRS OR MORE [place] [facility] [place] [facility] May 06, 2018 08:27 AM VA-TOBACCO FORMER USER [place] [facility] [place] [facility] May 06, 2018 08:27 AM VA-TOBACCO QUIT 15 YRS OR MORE [place] [facility] [place] [facility] Nov 05, 2017 09:54 AM QUIT TOBACCO USE > 7 YEARS AGO [place] [facility] [place] [facility] June 28, 2016 09:36 AM QUIT TOBACCO USE > 7 YEARS AGO [place] [facility] [place] [facility] Mar 15, 2015 10:54 AM LIFETIME NON-TOBACCO USER quit cigs. 1998 [place] [facility] [place] [facility] Nov 14, 2004 02:40 PM HISTORY OF SMOKING [facility] [place] [facility] May 18, 2003 09:05 AM HISTORY OF SMOKING quit August 1998 [place] [facility] [place] [facility] Jun 09, 2002 08:40 AM HISTORY OF SMOKING [facility] [place] [facility] Jun 09, 2002 08:40 AM QUIT TOBACCO USE > 7 YEARS AGO [place] [facility] [place] [facility] Jun 10, 2001 08:50 AM HISTORY OF SMOKING quit 1998 [place] [facility] [place] [facility] Jun 10, 2001 08:50 AM QUIT TOBACCO USE 1-7 YEARS AGO [place] [facility] [place] [facility] Jun 08, 2000 02:55 PM HISTORY OF SMOKING quit 2yrs ago [facility] [place] [facility] Radiology Reports: +/- 30 days [...] the Encounter. The data comes from all [place] treatment facilities. Date/Time Radiology Report Provider Source Apr 24, 2024 11:26 AM SPINE CERVICAL, 4 OR 5 VIEWS: QUENTIN DENNY [id number] [phone] Exm Date: APR 24, 2024@11:26 Req Phys: TAMRA HINSON Loc: [facility] PACT EIGHT MD (Req'g Loc) Img Loc: [facility]/BUILDING 1 Service: Unknown [place] [facility] [facility] [address] (Case [id number] COMPLETE) SPINE CERVICAL, 4 OR 5 VIEWS (RAD Detailed) CPT:10308 Reason for Study: neck pain x 1 month Clinical History: Report Status: Verified Date Reported: APR 24, 2024 Date Verified: APR 24, 2024 Grading Machine Feeder E-Sig:/ES/KADEN ZAMORA JR Report: Study: AP, lateral [...] Primary Interpreting Staff: KADEN ZAMORA JR, Radiologist (Grading Machine Feeder) /KADEN ROBB JR [place] [facility] Encounter Notes: All associated encounter notes This section contains the clinical notes associated to the Encounter. Date/Time Encounter Note(s) Provider Source May 06, 2024 11:09 AM OPTOMETRY NOTE: LOCAL TITLE: OPTOMETRY NOTE STANDARD TITLE: OPTOMETRY NOTE DATE OF NOTE: MAY 06, 2024@11:09 ENTRY DATE: MAY 06, 2024@11:09:04 AUTHOR: MILAD GUILLEN EXP COSIGNER: URGENCY: STATUS: COMPLETED Eye Examination for: QUENTIN DENNY, 74 year old OR MALE MHx: Code Description D50.9 Iron deficiency anemia ([facility] [id number]) M17.0 Bilateral osteoarthritis of knees ([facility] [id number]) I65.22 Carotid artery stenosis ([facility] [id number]) R69. Raynaud's phenomenon ([facility] [id number]) K22.2 Esophageal stricture ([facility] [id number]) E11.9 Type 2 diabetes mellitus ([facility] [id number]) R69. Endoscopy abnormal ([facility] [id number]) J44.9 Chronic obstructive lung disease ([facility] [id number]) K22.2 Diffuse spasm of esophagus ([facility] [id number]) 585.9 Chronic Renal disease (ICD-9-CM 585.9) E78.2 Hyperlipidemia ([facility] [id number]) 414.9 Coronary Artery Disease (ICD-9-CM 414.9) 696.1 Psoriasis (ICD-9-CM 696.1) 302.72 Male erectile disorder (ICD-9-CM 302.72) Z80.42 Family history of malignant neoplasm of prostate ([facility] [id number]) I10. Essential hypertension ([facility] [id number]) SYSTEMIC MEDICATIONS/OCULAR MEDICATIONS: Active Outpatient Medications (including Supplies): Active Outpatient [...] (S) DAILY Indication: TO SUPPLEMENT IRON 6) INCONT LINER DEPEND GUARDS USE 1 PAD TOPICALLY 8 TIMES/DAY ACTIVE 7) LANCET,SOFTCLIX USE 1 LANCET DIRECTED ONCE DAILY ACTIVE NEEDED TO TEST BLOOD SUGAR 8) MULTIVIT/OPHTH AREDS2/LUTE/ZEAX CAP/TAB TAKE 1 CAPSULE BY ACTIVE MOUTH TWICE DAILY IN THE MORNING AND EVENING, WITH FOOD Indication: FOR VITAMIN SUPPLEMENTATION 9) PANTOPRAZOLE NA 40MG EC TAB TAKE ONE TABLET BY MOUTH TWICE ACTIVE DAILY Indication: FOR EXCESSIVE PRODUCTION OF STOMACH ACID 10) TADALAFIL 20MG TAB TAKE ONE TABLET [...] (1 ACTIVE DOSE) BY MOUTH ONCE DAILY 18 Total Medications ALLERGIES: VARDENAFIL VITALS (most recent, as listed in the electronic record): B/P: 137/74 (04/24/2024 10:08) Pulse: 89 (04/24/2024 10:08) Temperature: 98.3 F [36.8 C] (04/24/2024 10:08) Weight: 173 lb [78.47 kg] (04/24/2024 10:08) Height: 70 in [177.8 cm] (04/24/2023 10:25) BMI: BMI: 24.9 PERTINENT LABS: HEMOGLOBIN A1C TREND Collection DT Spec HGBA1c 04/23/2024 09:36 BLOOD 6.1 H 10/19/2023 09:00 BLOOD 6.0 H 10/04/2022 07:33 BLOOD 6.0 H 03/09/2022 08:25 BLOOD 6.8 H 09/05/2021 07:39 BLOOD 6.5 H Forward from HT note, checked by Attending This 74 year old MALE is seen today for f/u macular degeneration Optometry Clinical Research Scientist Attending Provider Note: Date of Last Exam: Sep 2023 Location: [facility] Chief Complaint: Patient states my vision is doing good, everything seems better since my last visit here. Taking AREDS BID, just got a delivery, but needs more refills for future. Also taking AT's TID-QID which helps a lot with the dry eyes. No other ocular complaints today. HISTORY AND REVIEW OF SYSTEMS: OHx: Type II DM without ocular manifestations OU Pseudophakia OU Ptosis s/p surgical repair OS Dry Eye OU Ref error and presbyopia (-) Pain: (-) ERICKSON: (-) Diplopia: (-) Flashes: (-) Floaters: longstanding and rare (-) Amaurosis Fugax/Tia's: (-) Eye Injury: (+) Eye Surgery: ptosis repair OS, CE OU (-) TBI FOHx: (-) Glaucoma/ARMD/Blindness DIABEIC: Yes LAST A1C: Results HEMOGLOBIN A1C PANEL BLOOD (LAV-BLOOD) KEVIN LB #[id number] Collection time: Apr 23, 2024@09:36 Test Name Result Units Range --------- ------ ----- ----- HEMOGLOBIN A1C 6.1 H % 4.0 - 5.6 NEW ALLERGIES TO REPORT: No EYE MEDICATION(S): AT's TID-QID, AREDS BID CURRENT RX WITH BCVA: OD: +1.00 -1.75 x065 20/25+2 OS: +0.75 -1.75 x100 20/20-2 Add: +2.50 20/20 DVA: ( )SC (x)CC ( )Phoropter ( )CL OD: 20/25-1 OS: 20/20 MANIFEST REFRACTION(MRx): Done 09/2023 CEE CVF: Appear FTFC OU EOMS: Appear Full OU PUPILS: Appear ERRL(-)APD INTRAOCULAR PRESSURE (IOP) METHOD: Goldmann Time: 11:04AM OD: 14 OS: 14 holding lids ANTERIOR CHAMBER (AC): Penlight or slit lamp (if available) exam appears unremarkable. Pupils are dilated. Dilation and driving precautions reviewed with patient and patient expresses understanding. Medication: 1% Tropicamide, 2.5% Phenylephrine OU Time: 11:06AM Visual Imaging Performed Today: No Additional Comments: Final Rx: no change SLE: Lids/Lashes: LL bags OU, MGD OU Conjunctiva: white and quiet bulbar conj OU quiet palpebral conj OU Corneas: clear OU Iris: flat and clear OU, (-)NVI OU AC: D & Q OU Angles: 4x4 OU Dilated Fundus Exam: Vit: syneresis OU Lens: PCIOL OU C/D (Size and Rim Description) OD 0.35 pink and healthy OS 0.45 pink and healthy (-)NVD OU PPole OD clear OS clear (-)DBH/CWS/JULIAN/VB Macula OD scattered drusen with larger elevated vitilliform lesion OS scattered drusen and vitilliform lesion (-)CSME/SRF/SRH OU A/V: normal caliber OU Periphery: flat and intact (-)NVE, holes, tears, detachments 360 OU Assessment/Plan: 1. 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 Sent to [facility] for evaluation of questionable early CNV without evidence of conversion -Pt ed re today's findings, the natural history of macular degeneration including both wet and dry varieties and the prognosis of this condition -Pt ed re the importance of UV protection -Stressed importance of cessation of smoking and impact on ARMD -Pt ed on use of home amsler grid including proper testing at home -Pt ed on use of ocular nutraceutical therapy, diet and healthy lifestyle choices -Pt ed to report any vision changes BRANDO. -[place] repeated back the plan and education. -Monitor 2. Type II Diabetes without evidence of retinopathy or macular edema OU. -Pt ed re today's findings and the possible ocular health and visual complications associated with diabetes as well as importance of attending follow up appointments -Encouraged blood sugar, blood pressure and lipid control as directed by provider managing diabetes. -Pt ed to report any vision changes BRANDO. -[place] repeated back the plan and education. -Monitor 3. Ptosis OS s/p surgical repair - stable -Pt ed re today's findings - repeated back the plan and education. -Monitor 4. Dry Eye Syndrome OU - symptomatic -Pt ed re today's findings -Continue Artificial Tears QID OU -[place] repeated back the plan and education. -Monitor 5. Pseudophakia OU -Pt ed re today's findings and the importance of UV protection - repeated back the plan and education. -Monitor 6. Refractive Error and Presbyopia OU -CPM -Monitor RTC 6 mos or earlier PRN (x)Appointment with coordinated visual imaging (x) Macular OCT (x) Fundus Photos Glasses adjusted/repaired in office: () Yes (x) No If yes, how many pairs: Total Time: 20 Minutes *This includestime spent before the visit reviewing the chart, time spent during the visit (not including procedures coded separately), and time spent after the visit on documentation, etc. Education: Diabetes: Patient was educated regarding diabetes and related ocular complications including retinopathy and cataract formation as well as other related systemic complications. The importance of good blood sugar control, blood sugar testing as recommended by their PCP and the importance of timely follow up were all emphasized. Macular Degeneration: Patient was educated regarding macular degeneration including both wet and dry varieties as well as the natural history and prognosis of this condition. Education included the role of amsler grid testing , ocular nutraceutical therapy as well as diet and healthy lifestyle choices when applicable. Exclusion criteria includes extremely reduced acuity or cognitive decline for amsler grid testing and other coexisting systemic contraindication for supplements, diet and exercise. Medication Reconciliation: Outpatient: Has the patient been taking medications as documented in the EMLR? YES: The patient has been taking medications as documented in the EMLR. Essential Medication List for Review used to complete this medication reconciliation. INCLUDED IN THIS LIST: Alphabetical list of active outpatient prescriptions dispensed from this [facility] (local) and dispensed from another [place] or [facility] facility (remote) as well as inpatient orders [...] Remote Allergy/ADR Data available for this patient [facility] VARDENAFIL Med. Reconciliation (Tool #1) INCLUDED IN THIS LIST: Alphabetical list of active outpatient prescriptions dispensed from this [place] (local) and dispensed from another [place] or [facility] facility (remote) as well as inpatient orders (local pending and active), local clinic medications, locally documented non-VA medications, and local prescriptions that have or been discontinued in the past 90 days. Non-VA Meds Last Documented On: Oct 29, 2023 NOTE The display of VA prescriptions dispensed from another [place] or [facility] facility (remote) is limited to active outpatient prescription entries matched to National Drug File at the originating site and may not include some items such as investigational drugs, compounds, etc. NOT INCLUDED IN THIS LIST: Medications self-entered by the patient into personal health records (i.e. [email or web address]) are NOT included in this list. Non-VA medications documented outside this [place], remote inpatient orders (regardless of status) and [...] MOUTH ONCE DAILY FOR VITAMIN/NUTRITION SUPPLEMENT Rx# [id number] Last Released: 03/27/24 Qty/Days Supply: Rx Expiration Date: 01/01/25 Refills Remainin Indication: FOR INADEQUATE VITAMIN C Non-VA ASPIRIN 81MG EC TAB TAKE ONE TABLET BY MOUTH EVERY DAY Non-VA ATORVASTATIN CALCIUM 80MG TAB TAKE ONE-HALF TABLET BY MOUTH daily Indication: FOR HIGH CHOLESTEROL Non-VA BECLOMETH 80MCG 120D BREATH ACTVTD INHL INHALE 2 PUFFS BY MOUTH TWICE DAILY OUTPT CARBOXYMETHYLCELLULOSE NA 0.5% OPH SOLN (Status = Active) INSTILL 1 DROP INTO EACH EYE FOUR TIMES A DAY FOR DRY EYE Rx# [id number] Last Released: 04/29/24 Qty/Days Supply: Rx Expiration Date: 10/09/24 Refills Remainin Indication: FOR DRY EYE Non-VA CARVEDILOL 25MG TAB TAKE ONE TABLET BY MOUTH TWICE DAILY Indication: FOR HIGH BLOOD PRESSURE OUTPT CLOTRIMAZOLE 1% TOP SOLN (Status = ) APPLY 1 DROP TOPICALLY ONCE DAILY FOR FUNGAL INFECTION. APPLY WHEN NAIL IS DRY (NOT AFTER SHOWER/BATH). USE FOR AT LEAST 9-12 MONTHS. REGULAR NAIL CARE IS RECOMMENDED Rx# [id number] Last Released: 02/23/24 Qty/Days Supply: Rx Expiration Date: 04/10/24 Refills Remainin Indication: FOR FUNGAL INFECTION OF THE SKIN OUTPT EMPAGLIFLOZIN 10MG TAB (Status = Active) TAKE ONE TABLET BY MOUTH ONCE DAILY FOR TYPE 2 DIABETES MELLITUS Rx# [id number] Last Released: 04/24/24 Qty/Days Supply: Rx Expiration Date: 01/01/25 Refills Remainin Indication: FOR TYPE 2 DIABETES MELLITUS OUTPT FAMOTIDINE 40MG TAB (Status = Active) TAKE ONE TABLET BY MOUTH ONCE DAILY FOR STOMACH ACID Rx# [id number] Last Released: 04/02/24 Qty/Days Supply: Rx Expiration Date: 01/01/25 Refills Remainin Indication: FOR GASTROESOPHAGEAL REFLUX DISEASE OUTPT FERROUS GLUCONATE 324MG TAB (Status = Discontinued) TAKE TWO TABLETS BY MOUTH ONCE DAILY TO SUPPLEMENT IRON Rx# [id number] Last Released: 12/10/23 Qty/Days Supply: Rx Expiration Date: 04/17/24 Refills Remainin Indication: TO SUPPLEMENT IRON OUTPT FERROUS GLUCONATE 324MG TAB (Status = Active/Suspended) TAKE TWO TABLETS BY MOUTH ONCE DAILY TO SUPPLEMENT IRON Rx# [id number] Last Released: 04/29/24 Qty/Days Supply: 200/90 Rx Expiration Date: 04/24/25 Refills Remainin Indication: TO SUPPLEMENT IRON OUTPT HYDROPHILIC (EQV EUCERIN) TOP CREAM (Status = ) APPLY A SMALL AMOUNT TOPICALLY ONCE DAILY TO DRY, CRACKED SKIN ON FEET Rx# [id number] Last Released: 02/18/24 Qty/Days Supply: 454/90 Rx Expiration Date: 04/10/24 Refills Remainin Indication: FOR DRY SKIN Non-VA MAGNESIUM OXIDE 420MG TAB TAKE ONE TABLET BY MOUTH ONCE DAILY OUTPT MULTIVIT/OPHTH AREDS2/LUTE/ZEAX CAP/TAB (Status = Discontinued) TAKE 1 CAPSULE BY MOUTH TWICE DAILY FOR VITAMIN SUPPLEMENTATION IN THE MORNING AND EVENING, WITH FOOD Rx# [id number] Last Released: 04/29/24 Qty/Days Supply: 120/60 Rx Expiration Date: 10/09/24 Refills Remainin Indication: FOR VITAMIN SUPPLEMENTATION OUTPT MULTIVIT/OPHTH AREDS2/LUTE/ZEAX CAP/TAB (Status = Active/Suspended) TAKE 1 CAPSULE BY MOUTH TWICE DAILY FOR VITAMIN SUPPLEMENTATION IN THE MORNING AND EVENING, WITH FOOD Rx# [id number] Last Released: Qty/Days Supply: 120/60 Rx Expiration Date: 05/07/25 Refills Remainin Indication: FOR VITAMIN SUPPLEMENTATION Non-VA OLODATEROL/TIOTROP 2.5MCG/ACTUAT 60D INH INHALE 2 PUFFS (1 DOSE) BY MOUTH ONCE DAILY OUTPT PANTOPRAZOLE NA 40MG EC TAB (Status = Active) TAKE ONE TABLET BY MOUTH TWICE DAILY FOR EXCESSIVE PRODUCTION OF STOMACH ACID Rx# [id number] Last Released: 02/25/24 Qty/Days Supply: 180/90 Rx Expiration Date: 12/21/24 Refills Remainin Indication: FOR EXCESSIVE PRODUCTION OF STOMACH ACID OUTPT TADALAFIL 20MG TAB (Status = Active) TAKE ONE TABLET BY MOUTH NEEDED Rx# [id number] Last Released: 04/17/24 Qty/Days Supply: 06/18 Rx Expiration Date: 10/03/24 Refills Remainin SUPPLIES OUTPT INCONT LINER DEPEND GUARDS (Status = Discontinued) USE 1 PAD TOPICALLY 8 TIMES/DAY Rx# [id number] Last Released: 01/29/24 Qty/Days Supply: 312/30 Rx Expiration Date: 01/01/25 Refills Remainin OUTPT INCONT LINER DEPEND GUARDS (Status = Active) USE 1 PAD TOPICALLY 8 TIMES/DAY Rx# [id number] Last Released: 03/01/24 Qty/Days Supply: 728/90 Rx Expiration Date: 02/28/25 Refills Remainin OUTPT LANCET,SOFTCLIX (Status = Active) USE 1 LANCET DIRECTED ONCE DAILY NEEDED TO TEST BLOOD SUGAR Rx# [id number] Last Released: 08/02/23 Qty/Days Supply: 100/90 Rx Expiration Date: 07/30/24 Refills Remainin PHARMACY TERMS AND POSSIBLE PATIENT ACTIONS INPT = [place] inpatient order IV = [place] intravenous medication OUTPT = [place] outpatient prescription PHARMACY POSSIBLE PATIENT TERMS EXPLANATION ACTIONS -------- - ACTIVE A prescription that can be If you have refills, filled at the local [place] pharmacy. you may request a refill of this prescription from your [place] pharmacy. CLINIC A medication you received during If you have questions a visit to a [place] clinic or about this medication emergency department. contact your [place] healthcare team. DISCONTINUED A prescription your provider has Contact your [place] stopped. It is no longer healthcare team if you available to be sent to you or need more of this picked up at the [facility] pharmacy medication. window. A prescription which is [...] the VA. Or, it may be an bpsy-qiu-irmdfcx (OTC), herbal, dietary supplements or sample medication. [...] Medication Reconciliation List Offered and Declined by () Medication Reconciliation List Printed for [place] at Exam () Optometry HT Please Print and Mail Copy of Medication Reconciliation List () AMSA Please Print and Mail Copy of Medication Reconciliation List /es/ MILAD GUILLEN OD COLLAR POINTER Signed: 05/06/2024 12:33 MILAD GUILLEN [place] [facility] May 06, 2024 07:49 AM OPTOMETRY NOTE: LOCAL TITLE: OPTOMETRY NOTE STANDARD TITLE: OPTOMETRY NOTE DATE OF NOTE: MAY 06, 2024@07:49 ENTRY DATE: MAY 06, 2024@07:49:42 AUTHOR: BEATRIZ SOL [facility] EXP COSIGNER: URGENCY: STATUS: COMPLETED Active problems - Computerized Problem List is the source for the followin. Iron deficiency anemia 2. Bilateral osteoarthritis of knees 3. Carotid artery stenosis 4. Raynaud's phenomenon 5. Esophageal stricture 6. Type 2 diabetes mellitus (SNOMED CT 77371264) 7. Endoscopy abnormal 8. Chronic obstructive lung disease (SNOMED CT 67713621) 9. Diffuse spasm of esophagus (SNOMED CT 27465656) 10. Chronic Renal disease 11. Hyperlipidemia (SNOMED CT 28057394) 12. Coronary Artery Disease * 13. Psoriasis * 14. Male erectile disorder 15. Family history of malignant neoplasm of prostate 16. Essential hypertension (SNOMED CT 09894365) Active Outpatient Medications (including Supplies): Active Outpatient [...] (S) DAILY Indication: TO SUPPLEMENT IRON 6) INCONT LINER DEPEND GUARDS USE 1 PAD TOPICALLY 8 TIMES/DAY ACTIVE 7) LANCET,SOFTCLIX USE 1 LANCET DIRECTED ONCE DAILY ACTIVE NEEDED TO TEST BLOOD SUGAR 8) MULTIVIT/OPHTH AREDS2/LUTE/ZEAX CAP/TAB TAKE 1 CAPSULE BY ACTIVE MOUTH TWICE DAILY IN THE MORNING AND EVENING, WITH FOOD Indication: FOR VITAMIN SUPPLEMENTATION 9) PANTOPRAZOLE NA 40MG EC TAB TAKE ONE TABLET BY MOUTH TWICE ACTIVE DAILY Indication: FOR EXCESSIVE PRODUCTION OF STOMACH ACID 10) TADALAFIL 20MG TAB TAKE ONE TABLET [...] (1 ACTIVE DOSE) BY MOUTH ONCE DAILY 18 Total Medications Allergies: VARDENAFIL All medications including those prescribed by outside VA's, community providers, and all OTC meds were reviewed and reconciled with patient to the best of their abilities. This 74 year old MALE is seen today for f/u macular degeneration Optometry Clinical Research Scientist Attending Provider Note: Date of Last Exam: Sep 2023 Location: [facility] Chief Complaint: Patient states my vision is doing good, everything seems better since my last visit here. Taking AREDS BID, just got a delivery, but needs more refills for future. Also taking AT's TID-QID which helps a lot with the dry eyes. No other ocular complaints today. HISTORY AND REVIEW OF SYSTEMS: OHx: Type II DM without ocular manifestations OU Pseudophakia OU Ptosis s/p surgical repair OS Dry Eye OU Ref error and presbyopia (-) Pain: (-) ERICKSON: (-) Diplopia: (-) Flashes: (-) Floaters: longstanding and rare (-) Amaurosis Fugax/Tia's: (-) Eye Injury: (+) Eye Surgery: ptosis repair OS, CE OU (-) TBI FOHx: (-) Glaucoma/ARMD/Blindness DIABEIC: Yes LAST A1C: Results HEMOGLOBIN A1C PANEL BLOOD (LAV-BLOOD) KEVIN LB #[id number] Collection time: Apr 23, 2024@09:36 Test Name Result Units Range --------- ------ ----- ----- HEMOGLOBIN A1C 6.1 H % 4.0 - 5.6 NEW ALLERGIES TO REPORT: No EYE MEDICATION(S): AT's TID-QID, AREDS BID CURRENT RX WITH BCVA: OD: +1.00 -1.75 x065 20/25+2 OS: +0.75 -1.75 x100 20/20-2 Add: +2.50 20/20 DVA: ( )SC (x)CC ( )Phoropter ( )CL OD: 20/25-1 OS: 20/20 MANIFEST REFRACTION(MRx): Done 09/2023 CEE CVF: Appear FTFC OU EOMS: Appear Full OU PUPILS: Appear ERRL(-)APD INTRAOCULAR PRESSURE (IOP) METHOD: Goldmann Time: 11:04AM OD: 14 OS: 14 holding lids ANTERIOR CHAMBER (AC): Penlight or slit lamp (if available) exam appears unremarkable. Pupils are dilated. Dilation and driving precautions reviewed with patient and patient expresses understanding. Medication: 1% Tropicamide, 2.5% Phenylephrine OU Time: 11:06AM Visual Imaging Performed Today: No Additional Comments: /noe/ Beatriz Sol [facility] Health Clinical Research Scientist Signed: 05/06/2024 11:08 BEATRIZ SOL [facility]
--- OUTSIDE RECORDS SUMMARY | 2024-05-16 06:30 | XMS_ITS | Encounter Summary ---
Author Name [facility] [place] [facility] [place] Address [address] [place] [address] Care Team Providers Care Senior Service Technician Name Role Phone TAMRA HINSON Primary Care [...] POINT OF SERVICE [facility] Jun 04, 2017 [id number] QUENTIN DENNY PATIENT AETNA POINT OF SERVICE [facility] E Feb 19, 2017 [id number] QUENTIN DENNY PATIENT CAREMARK PRESCRIPT ION [facility] Jun 04, 2017 [id number] DENISHA QUENTIN PATIENT CAREMARK PRESCRIPT ION [facility] ANDLE RS Feb 19, 2017 [id number] QUENTIN DENNY PATIENT CAREMARK PRESCRIPT ION [facility] Feb 19, 2017 [id number] DENISHAQUENTIN PATIENT CAREMARK PRESCRIPT ION [facility] Feb 19, 2017 [id number] QUENTIN DENNY PATIENT CAREMARK PRESCRIPT ION RASHEEDA ANDLUIZ RS Aug 19, 2007 [id number] [phone] QUENTIN DENNY PATIENT CAREMARK PRESCRIPT ION RASHEEDA ANDLUIZ RS Aug 19, 2005 [id number] [phone] QUENTIN DENNY PATIENT 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 PLAN POINT OF SERVICE [facility] Feb 19, 2017 [id number] [id number] [phone] QUENTIN DENNY PATIENT 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 PLAN POINT OF SERVICE [facility] Feb 19, 2017 [id number] [phone] QUENTIN DENNY PATIENT 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 POINT OF SERVICE [facility] Feb 19, 2017 [id number] QUENTIN DENYN PATIENT NAMHANDLE RS BENEFIT PLAN POINT OF SERVICE [facility] Jun 04, 2017 [id number] [phone] QUENTIN DENNY PATIENT NAMHANDLE RS BENEFIT PLAN PREFERRED PROVIDER ORGANIZAT ION (PPO) STAND TRACI [birth year] 2005 [id number] [id number] [phone] QUENTIN DENNY PATIENT MEDICARE ([facility]) MEDICARE () PART B Apr 19, 2013 PART B [id number] [id number] QUENTIN DENNY PATIENT MEDICARE ([facility]) MEDICARE () PART B Apr 19, 2013 PART B [id number] QUENTIN DENNY PATIENT MEDICARE ([place]) MEDICARE () PART B Apr 19, 2013 PART B [id number] QUENTIN DENNY PATIENT MEDICARE ([place]) MEDICARE () PART B Apr 19, 2013 PART B [id number] QUENTIN DENNY PATIENT MEDICARE ([place]) MEDICARE () PART A Mar 22, 2013 PART A [id number] QUENTIN DENNY PATIENT MEDICARE ([facility]) MEDICARE () PART A Mar 22, 2013 PART A [id number] QUENTIN DENNY PATIENT MEDICARE ([place]) MEDICARE ([place]) PART A Mar 22, 2013 PART A [id number] QUENTIN DENNY PATIENT MEDICARE ([place]) MEDICARE ([place]) PART A Mar 22, 2013 PART A [id number] QUENTIN DENNY PATIENT MEDICARE ([place]) MEDICARE ([place]) PART A Mar 22, 2013 PART A [id number] QUENTIN DENNY PATIENT MEDICARE ([place]) MEDICARE ([place]) PART B Mar 22, 2013 PART B [id number] QUENTIN DENNY PATIENT Selected Encounter This section includes the information on record at [place] for the Encounter. Date/Time Encounter Type Encounter Description Reason Provider Source May 16, 2024 10:30 AM THERAPEUTIC EXERCISES PHYSICAL THERAPY ICD-10-CM M54.2 Cervicalgia JOSEFINA MOLINA Jarod Encounter Template Text not used by [place] Assessments - Encounter Diagnoses This section includes the primary and secondary diagnoses documented for the Encounter. Date/Time Primary/Secondary Diagnosis Diagnosis Name Provider Source Jun 13, 2024 04:04 PM PRIMARY SAMY Forrest Plan of Treatment: Future Appointments (+ 6 months) and Future Tests (+/- 45 days) The Plan of Treatment section includes future care activities for the patient from all [place] treatmentfacilities. This section includes future appointments and future orders which are active, pending or scheduled. Future Appointments This section includes appointments that were scheduled to occur 6 months from the date of the Encounter, up to a maximum of 20 appointments. The data comes from all [place] treatment facilities. Appointment Date/Time Appointment Type Appointme nt Facility Name May 23, 2024 09:00 AM [facility]UL[facility]ORY - [facility] May 23, 2024 01:30 PM [place] [facility] May 30, 2024 09:30 [facility] Jun 06, [facility]24 09:30 [facility] Jul 23, 2024 09:30 AM [facility] [place] [facility] Aug 27, 2024 10:00 AM [facility] Oct 27, 2024 09:00 AM [place] [facility] Lab Results: +/- 30 days of [...] Type Comment Apr 23, 2024 09:36 AM [facility] HEMOGLOBIN A1C PANEL BLOOD [...] 29, 2023 10:41 AM Reporting Lab: [address] [address] Performing Lab: [address] [address] HEMOGLOBIN A1C 6.1 H 4.0-5.6 Apr 23, 2024 09:36 AM [facility] LIPID PANEL FASTING SERUM Specimen Type: SERU M No comment entered. Ordering Provider: TAMRA HINSON Report Released Date/Time: Oct 29, 2023 10:41 AM Reporting Lab: [address] [address] Performing Lab: [address] [address] CHOLESTEROL 124 mg/dL TRIGLYCERIDE 307 mg/dL H [...] CERVICAL, 4 OR 5 VIEWS: QUENTIN DENNY [id number] -1950 M Ex Date: APR 24, 2024@11:26 Req Phys: TAMRA HINSON Loc: [facility] PACT EIGHT (Req'g Loc) Img Loc: [facility]/BUILDING 1 Service: [place] [address] (Case [id number] COMPLETE) SPINE CERVICAL, 4 OR 5 VIEWS (RAD Detailed) CPT:74388 Reason for Study: neck pain x 1 month Clinical History: Report Status: Verified Date Reported: APR 24, 2024 Date Verified: APR 24, 2024 Sugar Mixer E-Sig:/ES/KADEN ZAMORA JR Report: Study: AP, lateral [...] Primary Interpreting Staff: KADEN ZAMORA JR, Radiologist (Sugar Mixer) /KADEN ROBB JR [place] [facility] Encounter Notes: All associated encounter notes This section contains the clinical notes associated to the Encounter. Date/Time Encounter Note(s) Provider Source May 16, 2024 10:31 AM PHYSICAL THERAPY N OTE: LOCAL TITLE: PHYSICAL THERAPY STANDARD TITLE: PHYSICAL THERAPY NOTE DATE OF NOTE: MAY 16, 2024@10:31 ENTRY DATE: MAY 16, 2024@10:31:53 AUTHOR: SAMY MOLINA EXP COSIGNER: URGENCY: STATUS: COMPLETED Initial Evaluation date: 05/05/24 Progress Note Date: 06/05/24 Treatment #: 1 Treatment time: 30 Diagnosis: Cervicalgia(ICD-10-CM M54.2) Provider: TAMRA HINSON PT Treatment Precautions: Patient identified by full name and date of SUBJECTIVE: patient states their pain now comes and goes, no longer constant OBJECTIVE: Therapeutic Exercise: Mins: 27 UBE 5mins band row 2x15 blue band band shoulder extension 2x15 green band Seated Cervical Retraction 10 reps Standing Shoulder Horizontal Abduction with Resistance and cervical rotation 10 reps yellow band Seated Assisted Cervical Rotation with Towel 10 reps Mid-Lower Cervical Extension SNAG with Strap 10 reps Manual therapy: Mins: Neuro re-ed: Mins: Other: Mins: Modalities: Mins: [] contraindication screen completed prior to modality [] skin intact pre/post modality Access Code: [email or web address] URL: [email or web address] Date: 05/16/2024 Prepared by: Samy Molina Exercises - Heat - 1-2 x daily - 7 x weekly - Seated Cervical Retraction - 1-2 x daily - 7 x weekly - 2 sets - 10 reps - Standing Shoulder Horizontal Abduction with Resistance - 1 x daily - 7 x weekly - 2-3 sets - 10 reps - Mid-Lower Cervical Extension SNAG with Strap - 1 x daily - 7 x weekly - 2-3 sets - 10 reps - Standing Shoulder Row with Anchored Resistance - 1 x daily - 7 x weekly - 2-3 sets - 10-15 reps - Shoulder extension with resistance - Neutral - 1 x daily - 7 x weekly - 2-3 sets - 10-15 reps PATIENT EDUCATION: Mins: 2 Patient education was provided for all aspects of care during this clinical encounter. Provided updated written HEP to patient reviewing proper form sets reps and frequency and safety precautions with patient verbalizing and demonstrating good understanding during visit. ASSESSMENT: Patient seen for routine follow up. Provided instruction through progressions in DNF, periscapular, and cervical ROM with good tolerance from patient. Some soreness with assisted rotation with towel in the L shoulder and difficulty with coordination with this exercise so it was removed from HEP. Provided updated written HEp for carryover reviewing with patient. PLAN: Progress as tolerated focusing on improving cervical ROM, improving UE [...] []Estim/Tens []Mechanical traction []K-tape [] Biofreeze /es/ SAMY MOLINA PT, DPT PHYSICAL THERAPIST Signed: 05/16/2024 11:02 SAMY MOLINA [place]
--- OUTSIDE RECORDS SUMMARY | 2024-05-23 05:00 | XMS_ITS | Encounter Summary ---
Author Name [facility] [place] Address [address] [place] [address] Care Team Providers Care Intake Manager Name Role Phone TAMRA HINSON [facility] Providers: All historical and [...] POINT OF SERVICE [facility] Jun 04, 2017 [id number] [phone] QUENTIN DENNY PATIENT AETNA POINT OF SERVICE MHBP [facility] E Feb 19, 2017 [id number] QUENTIN DENNY PATIENT CAREMARK PRESCRIPT ION [facility] Jun 04, 2017 [id number] [phone] DENISHA QUENTIN PATIENT CAREMARK PRESCRIPT ION [facility] ANDLE RS Feb 19, 2017 [id number] QUENTIN DENNY PATIENT CAREMARK PRESCRIPT ION [facility] Feb 19, 2017 [id number] DENISHAQUENTIN PATIENT CAREMARK PRESCRIPT ION [facility] Feb 19, 2017 [id number] QUENTIN DENNY PATIENT CAREMARK PRESCRIPT ION RASHEEDA ANDLUIZ RS Aug 19, 2007 [id number] [id number] [phone] QUENTIN DENNY PATIENT CAREMARK PRESCRIPT ION RASHEEDA ANDLUIZ RS Aug 19, 2007 [id number] QUENTIN DENNY PATIENT 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 PLAN POINT OF SERVICE [facility] Feb 19, 2017 [id number] [phone] QUENTIN DENNY PATIENT 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ENEF[employer] PLAN POINT OF SERVICE [facility] Feb 19, 2017 [id number] [phone] QUENTIN DENNY PATIENT 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 PLAN POINT OF SERVICE [facility] Feb 19, 2017 [id number] QUENTIN DENNY PATIENT NAMHANDLE RS BENEFIT PLAN POINT OF SERVICE [facility] Jun 04, 2017 [phone] QUENTIN DENNY PATIENT NAMHANDLE RS BENEFIT PLAN PREFERRED PROVIDER ORGANIZAT ION (PPO) STAND TRACI [birth year] 2005 [id number] [phone] [phone] QUENTIN DENNY PATIENT MEDICARE ([facility]) MEDICARE () PART B Apr 19, 2013 PART B [id number] [id number] [id number] QUENTIN DENNY PATIENT MEDICARE ([facility]) MEDICARE () PART B Apr 19, 2013 PART B [id number] [phone] [id number] QUENTIN DENNY PATIENT MEDICARE ([place]) MEDICARE () PART B Apr 19, 2013 PART B [id number] QUENTIN DENNY PATIENT MEDICARE ([place]) MEDICARE () PART B Apr 19, 2013 PART B [id number] QUENTIN DENNY PATIENT MEDICARE ([place]) MEDICARE () PART A Mar 22, 2013 PART A [id number] QUENTIN DENNY PATIENT MEDICARE ([facility]) MEDICARE () PART A Mar 22, 2013 PART A [id number] QUENTIN DENNY PATIENT MEDICARE ([place]) MEDICARE ([place]) PART A Mar 22, 2013 PART A [id number] QUENTIN DENNY PATIENT MEDICARE ([place]NR) MEDICARE ([place]) PART A Mar 22, 2013 PART A [id number] QUENTIN DENNY PATIENT MEDICARE ([place]NR) MEDICARE ([place]) PART A Mar 22, 2013 PART A [id number] QUENTIN DENNY PATIENT MEDICARE ([place]) MEDICARE ([place]) PART B Mar 22, 2013 PART B [id number] QUENTIN DENNY PATIENT Selected Encounter This section includes the information on record at [place] for the Encounter. Date/Time Encounter Type Encounter Description Reason Provider Source May 23, 2024 09:00 AM THERAPEUTIC EXERCISES PHYSICAL THERAPY ICD-10-CM M54.2 CervicalJOSEFINA Grady Jarod Encounter Template Text not used by [place] Assessments - Encounter Diagnoses This section includes the primary and secondary diagnoses documented for the Encounter. Date/Time Primary/Secondary Diagnosis Diagnosis Name Provider Source July 11, 2024 01:10 PM PRIMARY PATT Forrest Plan of Treatment: Future Appointments (+ 6 months) and Future Tests (+/- 45 days) The Plan of Treatment section includes future care activities for the patient from all [place] treatmentfacilities. This section includes future appointments and future orders which are active, pending or scheduled. Future Appointments This section includes appointments that were scheduled to occur 6 months from the date of the Encounter, up to a maximum of 20 appointments. The data comes from all [place] treatment facilities. Appointment Date/Time Appointment Type Appointme nt Facility Name May 30, 2024 09:30 AM AMBULATORY - REHAB [facility] Jun 06, 2024 09:30 AM AMBULATORY - REHAB [facility] Jul 23, 2024 09:30 AM AMBULATORY - MEDICINE [facility]L [facility] Aug 27, 2024 10:00 AM AMBULATORY - MEDICINE [facility] [place] [facility] Oct 27, 2024 09:00 AM AMBULATORY - MEDICINE [facility] Radiology Reports: +/- 30 days of the [...] the Encounter. The data comes from all [place] treatment facilities. Date/Time Radiology Report Provider Source Apr 24, 2024 11:26 AM SPINE CERVICAL, 4 OR 5 VIEWS: QUENTIN DENNY [id number] -[id number] M Ex Date: APR 24, 2024@11:26 Req Phys: TAMRA HINSON Loc: [facility] (Req'g Loc) Im Loc: [facility] 1 Service: [place] [address] (Case 197 COMPLETE) SPINE CERVICAL, 4 OR 5 VIEWS (RAD Detailed) CPT:82736 Reason for Study: neck pain x 1 month Clinical History: Report Status: Verified Date Reported: APR 24, 2024 Date Verified: APR 24, 2024 Kidney Trimmer E-Sig:/ES/KADEN ZAMORA JR Report: Study: AP, lateral [...] Primary Interpreting Staff: KADEN ZAMORA JR, Radiologist (Kidney Trimmer) /KADEN ROBB JR [facility] Encounter Notes: All associated encounter notes This section contains the clinical notes associated to the Encounter. Date/Time Encounter Note(s) Provider Source May 23, 2024 09:03 AM PHYSICAL THERAPY N OTE: LOCAL TITLE: PHYSICAL THERAPY STANDARD TITLE: PHYSICAL THERAPY NOTE DATE OF NOTE: MAY 23, 2024@09:03 ENTRY DATE: MAY 23, 2024@09:03:13 AUTHOR: PATT MOLINA COSIGNER: URGENCY: STATUS: COMPLETED Initial Evaluation date: 05/05/24 Progress Note Date: 06/05/24 Treatment #: 2 Treatment time: 30 Diagnosis: Cervicalgia(ICD-10-CM M54.2) Provider: TAMRA HINSON PT Treatment Precautions: Patient identified by full name and date of SUBJECTIVE: patient states they have been doing their exercises consistently. Notes they continue to have headaches. OBJECTIVE: Therapeutic Exercise: Mins: 25 UBE 5mins band row 15 blue band band shoulder extension 15 green band band shoulder external rotation 10red band Seated Cervical Retraction 15 reps 3s hold Standing Shoulder Horizontal Abduction with Resistance and cervical rotation 15 reps red band supine head lift 10reps Manual therapy: Mins: Neuro re-ed: Mins: Other: Mins: Modalities: Mins: [] contraindication screen completed prior to modality [] skin intact pre/post modality Access Code: [email or web address] URL: [email or web address] Date: 05/23/2024 Prepared by: Patt Molina Exercises - Heat [...] 2-3 sets - 10-15 reps - Shoulder External Rotation with Anchored Resistance - 1 x daily - 7 x weekly - 2-3 sets - 10-15 reps - Supine Deep Neck Flexor Training - Repetitions - 1 x daily - 7 x weekly - 2 sets - 5-10 reps PATIENT EDUCATION: Mins: 5 Patient education was provided for all aspects of care during this clinical encounter. Provided education on the [employer] vane and updated HEP. ASSESSMENT: Patient seen for routine follow up. Provided instruction through progressions in periscap and DNF strengthening exercises with good tolerance from patient. Patient required min verbal cueing and demonstration for proper form with DNF head lift exercises with good return noted. Provided updated written HEP for carryover reviewing with patient. PLAN: Progress [...] PATT MOLINA PT, DPT PHYSICAL THERAPIST Signed: 05/23/2024 09:30 PATT MOLINA [place]
--- OUTSIDE RECORDS SUMMARY | 2024-05-30 05:30 | XMS_ITS | Encounter Summary ---
Author Name [facility] [place] [facility] [place] Address [address] [place] [id number] Care Team Providers Care Palliative Medicine Physician Name Role Phone TAMRA HINSON Primary Care Provider [facility] Insurance Providers: All historical [...] POINT OF SERVICE [facility] Jun 04, 2017 [id number] QUENTIN DENNY PATIENT AETNA POINT OF SERVICE [facility] E Feb 19, 2017 [id number] QUENTIN DENNY PATIENT CAREMARK PRESCRIPT ION [facility] Jun 04, 2017 [id number] DENISHA QUENTIN PATIENT CAREMARK PRESCRIPT ION [facility] ANDLE RS Feb 19, 2017 [id number] [phone] QUENTIN DENNY PATIENT CAREMARK PRESCRIPT ION [facility] Feb 19, 2017 [id number] [phone] DENISHAQUENTIN PATIENT CAREMARK PRESCRIPT ION [facility] Feb 19, 2017 [id number] QUENTIN DENNY PATIENT CAREMARK PRESCRIPT ION RASHEEDA ANDLUIZ RS Aug 19, 2007 [id number] QUENTIN DENNY PATIENT CAREMARK PRESCRIPT ION RASHEEDA ANDLUIZ RS Aug [birth year], 2005 [id number] QUENTIN DENNY PATIENT 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 POINT OF SERVICE [facility] Feb 19, 2017 [id number] [phone] QUENTIN DENNY PATIENT 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 POINT OF SERVICE [facility] Feb 19, 2017 [id number] QUENTIN DENNY PATIENT 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 POINT OF SERVICE [facility] Feb 19, 2017 [id number] [phone] QUENTIN DENNY PATIENT NAMHANDLE RS BENEFIT PLAN POINT OF SERVICE [facility] Jun 04, 2017 [id number] QUENTIN DENNY PATIENT NAMHANDLE RS BENEFIT PLAN PREFERRED PROVIDER ORGANIZAT ION (PPO) STAND TRACI [birth year], 2005 [id number] [phone] QUENTIN DENNY PATIENT MEDICARE ([facility]) MEDICARE () PART B Apr 19, 2013 PART B [id number] QUENTIN DENNY PATIENT MEDICARE ([facility]) MEDICARE () PART B Apr 19, 2013 PART B [id number] QUENTIN DENNY PATIENT MEDICARE (WN) MEDICARE () PART B Apr 19, 2013 PART B [id number] QUENTIN DENNY PATIENT MEDICARE (WN) MEDICARE () PART B Apr 19, 2013 PART B [id number] QUENTIN DENNY PATIENT MEDICARE (WN) MEDICARE () PART A Mar 22, 2013 PART A [id number] QUENTIN DENNY PATIENT MEDICARE ([facility]) MEDICARE () PART A Mar 22, 2013 PART A [id number] QUENTIN DENNY PATIENT MEDICARE (WNR) MEDICARE (M) PART A Mar 22, 2013 PART A [id number] QUENTIN DENNY PATIENT MEDICARE (WNR) MEDICARE (M) PART A Mar 22, 2013 PART A [id number] QUENTIN DENNY PATIENT MEDICARE (WNR) MEDICARE (M) PART A Mar 22, 2013 PART A [id number] [phone] QUENTIN DENNY PATIENT MEDICARE (WNR) MEDICARE (M) PART B Mar 22, 2013 PART B [id number] QUENTIN DENNY PATIENT Selected Encounter This section includes the information on record at [place] for the Encounter. Date/Time Encounter Type Encounter Description Reason Provider Source May 30, 2024 09:30 AM THERAPEUTIC EXERCISES PHYSICAL THERAPY ICD-10-CM M54.2 CervicalJOSEFINA Grady Jarod Encounter Template Text not used by [place] Assessments - Encounter Diagnoses This section includes the primary and secondary diagnoses documented for the Encounter. Date/Time Primary/Secondary Diagnosis Diagnosis Name Provider Source Jul 30, 2024 07:27 AM PRIMARY SAMY Forrest Plan of Treatment: Future Appointments (+ 6 months) and Future Tests (+/- 45 days) The Plan of Treatment section includes future care activities for the patient from all [place] treatmentfacilities. This section includes future appointments and future orders which are active, pending or scheduled. Future Appointments This section includes appointments that were scheduled to occur 6 months from the date of the Encounter, up to a maximum of 20 appointments. The data comes from all [place] treatment facilities. Appointment Date/Time Appointment Type Appointme nt Facility Name Jun 06, 2024 09:30 AM AMBULATORY - REHAB [facility] Jul 23, 2024 09:30 AM AM[place]ULATORY [place] MEDICINE [place] [facility] Aug 27, 2024 10:00 AM AM[place]ATORY [place]INE [place] [facility] Oct 27, 2024 09:00 AM AMBULATORY - MEDICINE [facility] Encounter Notes: All associated encounter notes This section contains the clinical notes associated to the Encounter. Date/Time Encounter Note(s) Provider Source May 30, 2024 09:33 AM PHYSICAL THERAPY N OTE: LOCAL TITLE: PHYSICAL THERAPY STANDARD TITLE: PHYSICAL THERAPY NOTE DATE OF NOTE: MAY 30, 2024@09:33 ENTRY DATE: MAY 30, 2024@09:33:27 AUTHOR: SAMY MOLINA EXP COSIGNER: URGENCY: STATUS: COMPLETED Initial Evaluation date: 05/05/24 Progress Note Date: 06/05/24 Treatment #: 3 Treatment time: 30 Diagnosis: Cervicalgia(ICD-10-CM M54.2) Provider: TAMRA HINSON PT Treatment Precautions: Patient identified by full name and date of SUBJECTIVE: patient states they are now mostly getting neck pain/headaches first thing in the morning. Notes less pain during the daytime and decrease in frequency of headaches. OBJECTIVE: Therapeutic Exercise: Mins: 26 UBE 5mins band row 2x15 black band band shoulder extension 2x15 black band band shoulder external rotation 2x15 red band Standing Shoulder Horizontal Abduction with Resistance and cervical rotation 2x15 reps green band supine head lift 5 reps neutral, 5 reps rotation, 5 reps side bent Manual therapy: Mins: Neuro re-ed: Mins: Other: Mins: Modalities: Mins: [] contraindication screen completed prior to modality [] skin intact pre/post modality Access Code: [email or web address] URL: [email or web address] Date: 05/30/2024 Prepared by: Samy Molina Exercises - Seated Cervical Retraction - 1-2 x [...] 7 x weekly - 2-3 sets - 15 reps - Shoulder extension with resistance - Neutral - 1 x daily - 7 x weekly - 2-3 sets - 15 reps - Shoulder External Rotation with Anchored Resistance - 1 x daily - 7 x weekly - 2-3 sets - 15 reps - Supine Deep Neck Flexor Training - Repetitions - 1 x daily - 7 x weekly - 2 sets - 5-10 reps PATIENT EDUCATION: Mins: 2 Patient education was provided for all aspects of care during this clinical encounter. Provided updated written HEP to patient reviewing proper form sets reps and frequency and safety precautions with patient verbalizing and demonstrating good understanding during visit. ASSESSMENT: Patient seen for routine follow up. Provided instruction through progressions in DNF and periscapular strengthening exercises with good toelrance from patient. No pain reported throughout visit, just min/mod muscle fatigue. Provided updated written HEP for carryover reviewing [...] SAMY MOLINA PT, DPT PHYSICAL THERAPIST Signed: 05/30/2024 09:58 SAMY MOLINA [place]
--- OUTSIDE RECORDS SUMMARY | 2024-06-06 05:30 | XMS_ITS | Encounter Summary ---
Author Name [facility] [place] [place] Address [address] [place] [address] Care Team Providers Care Splitting Machine Operator Name Role Phone TAMRA HINSON Primary Care Provider [facility] Insurance Providers: All historical and [...] POINT OF SERVICE [facility] Jun 04, 2017 [id number] [phone] [id number] [phone] QUENTIN DENNY PATIENT AETNA POINT OF SERVICE [facility] E Feb 19, 2017 [id number] QUENTIN DENNY PATIENT CAREMARK PRESCRIPT ION [facility] Jun 04, 2017 [id number] [phone] CELSAQUENTIN BE PATIENT CAREMARK PRESCRIPT ION RASHEEDA CLARKE RS Feb 19, 2017 [id number] [phone] CELSAQUENTIN BE PATIENT CAREMARK PRESCRIPT ION RASHEEDA CLARKE RS Feb 19, 2017 [id number] [phone] CELSAQUENTIN BE PATIENT CAREMARK PRESCRIPT ION [facility]BP Feb 19, 2017 [id number] QUENTIN DENNY PATIENT CAREMARK PRESCRIPT ION [facility] Feb 19, 2017 [id number] QUENTIN DENNY PATIENT CAREMARK PRESCRIPT ION RASHEEDA CLARKE RS Aug 19, 2007 [id number] QUENTIN DENNY PATIENT CAREMARK PRESCRIPT ION RASHEEDA CLARKE RS Aug [birth year], 2005 [id number] QUENTIN DENNY PATIENT 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 POINT OF SERVICE [facility] Feb 19, 2017 [id number] [phone] QUENTIN DENNY PATIENT 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 POINT OF SERVICE [facility] Feb 19, 2017 [id number] QUENTIN DENNY PATIENT 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 POINT OF SERVICE BP Feb 19, 2017 [id number] QUENTIN DENNY PATIENT IRINA BENEFIT PLAN POINT OF SERVICE BP Jun 04, 2017 [id number] [phone] QUENTIN DENNY PATIENT IRINA RS BENEFIT PLAN PREFERRED PROVIDER ORGANIZAT ION (PPO) STAND TRACI Aug 19, 2005 [id number] [phone] QUENTIN DENNY PATIENT MEDICARE ([facility]) MEDICARE () PART B Apr 19, 2013 PART B [id number] [phone] QUENTIN DENNY PATIENT MEDICARE (WN) MEDICARE () PART B Apr 19, 2013 PART B [id number] QUENTIN DENNY PATIENT MEDICARE ([facility]) MEDICARE () PART B Apr 19, 2013 PART B [id number] QUENTIN DENNY PATIENT MEDICARE (WN) MEDICARE () PART B Apr 19, 2013 PART B [id number] QUENTIN DENNY PATIENT MEDICARE ([facility]) MEDICARE () PART A Mar 22, 2013 PART A [id number] QUENTIN DENNY PATIENT MEDICARE (WNR) MEDICARE (M) PART A Mar 22, 2013 PART A [id number] QUENTIN DENNY PATIENT MEDICARE (WNR) MEDICARE (M) PART A Mar 22, 2013 PART A [id number] [phone] QUENTIN DENNY PATIENT MEDICARE (WNR) MEDICARE (M) PART A Mar 22, 2013 PART A [id number] [id number] QUENTIN DENNY PATIENT MEDICARE (WNR) MEDICARE (M) PART A Mar 22, 2013 PART A [id number] [phone] QUENTIN DENNY PATIENT MEDICARE (WNR) MEDICARE (M) PART B Mar 22, 2013 PART B [id number] [phone] QUENTIN DENNY PATIENT Selected Encounter This section includes the information on record at [place] for the Encounter. Date/Time Encounter Type Encounter Description Reason Provider Source Jun 06, 2024 09:30 AM SELF CARE MNGMENT TRAINING PHYSICAL THERAPY ICD-10-CM M54.2 PATT Forrest Jarod Encounter Template Text not used by [place] Assessments - Encounter Diagnoses This section includes the primary and secondary diagnoses documented for the Encounter. Date/Time Primary/Secondary Diagnosis Diagnosis Name Provider Source Sep 11, 2024 08:21 AM PRIMARY PATT Forrest [place] Plan of Treatment: Future Appointments (+ 6 months) and Future Tests (+/- 45 days) The Plan of Treatment section includes future care activities for the patient from all [place] treatmentfacilities. This section includes future appointments and future orders which are active, pending or scheduled. Future Appointments This section includes appointments that were scheduled to occur 6 months from the date of the Encounter, up to a maximum of 20 appointments. The data comes from all [place] treatment facilities. Appointment Date/Time Appointment Type Appointme nt Facility Name Jul 23, 2024 09:30 AM AM[facility]ORY [facility] Aug 27, 2024 10:00 AM [facility] Oct 27, 2024 09:00 AM [facility]AT[facility] - MEDICINE [facility] Dec 03, 2024 10:30 AM [facility] Dec 03, 2024 11:00 AM AMBULATORY - MEDICINE [facility] Encounter Notes: All associated encounter notes This section contains the clinical notes associated to the Encounter. Date/Time Encounter Note(s) Provider Source Jun 06, 2024 09:30 AM PHYSICAL MEDICINE REHAB TREATMENT PLAN NOTE: LOCAL TITLE: PHYSICAL THERAPY PROGRESS NOTE STANDARD TITLE: PHYSICAL MEDICINE REHAB TREATMENT PLAN NOTE DATE OF NOTE: JUN 06, 2024@09:30 ENTRY DATE: JUN 06, 2024@09:30:15 AUTHOR: PATT MOLINA COSIGNER: URGENCY: STATUS: COMPLETED Initial Evaluation date: 05/05/24 Progress Note Date: 06/05/24 Treatment #: 4 Treatment time: 30 Diagnosis: Cervicalgia(ICD-10-CM M54.2) Provider: TAMRA HINSON PT Treatment Precautions: Patient identified by full name and date of SUBJECTIVE: Patient states the pain severity/frequency has improved quite a bit, headaches are better too. Notes they feel ready for d/c. Pain current 0/10 Pain worst 6-7/10 Pain best 0/10 Current exercise routine: walking daily Patient Goal: get rid of the headaches Number of days per week with pain: 3/7 SANE report Please rate your ability to [...] = pain during testing Cervical ROM Flexion(60-90): 40 Extension: 55 Right SB: 20 Left SB: 20 Right Rotation: 65 Left Rotation: 65 Shoulder ROM: WNL and non-concordant for primary symptoms Cervical Strength:(_/5) Flexion: 5 Extension: 5 Right SB: 5 Left SB: [...] Cervical Special Tests Right Left Spurlings compression (-) (-) (Sn .50 Sp .90) Distraction (-) (-) [...] hypomobility CPA glides and min/mod TTP C1-T5 Therapeutic Exercise: Mins: 5 UBE 5mins Manual therapy: Mins: Neuro re-ed: Mins: Other: Mins: Modalities: Mins: [] contraindication screen completed prior to modality [] skin intact pre/post modality Access Code: [email or web address] URL: [email or web address]/ Date: 06/06/2024 Prepared by: Patt Molina Exercises - Seated Cervical Retraction - [...] sets - 5-10 reps PATIENT EDUCATION: Mins: 10 Patient education was provided for all aspects of care during this clinical encounter. Provided updated written HEP to patient reviewing proper form sets reps and frequency and safety precautions with patient verbalizing and demonstrating good understanding during visit. Discussed discharge exercise recommendations including frequency and sets/reps methods of progression. ASSESSMENT: Patient seen for reassessment of baseline measures. Patient with good improvement in self reported pain scores and improvement in pain frequency compared to initial. Patient demonstrates good improvements in cervical ROM and cervical MMT compared to initial eval. Provided education as described above for discharge activity recommendations; patient verbalizes good understanding. GOALS: in 4-6weeks, patient will demonstrate: consistent carryover of HEP 5/7 days per week with patient able to independently teach back 75% of exercises - MET 06/06/24 2pt decrease in pain level at worst to improve patient ability to complete most symptomatic tasks - MET 06/06/24 decrease in total days with pain by 2 days to improve patient QOL- MET 06/06/24 10deg improvement in cervical extension ROM- MET 06/06/24 10deg improvement in cervical rotation ROM - MET 06/06/24 1/2 grade improvement in cervical flexion MMT- MET 06/06/24 PLAN: D/C to HEP [x]Low impact cardio: [x]Nustep []Recumbent bike []Recumbent elliptical [x]UBE [x]Manual: [x]STM/DTM []METs/SCS [x]IASTM [x]Joint mobilizations [x]Therex: [x]Progressive UQ []Progressive Core []Progressive LQ [x]UQ flex [] Lumbar flex []LQ flex []Foam rolling []Proprioception []Neuro Re-education: []Static []Dynamic []Dual-Task [x]Education: [x]Posture []Ergonomics [x]Bodymechanics [x]Self-care strategies []PNE []Modalities(PRN): []Heat/Ice []Estim/Tens []Mechanical traction []K-tape [] Biofreeze /es/ PATT MOLINA PT, DPT PHYSICAL THERAPIST Signed: 06/06/2024 09:54 PATT MOLINAFIELD
--- OUTSIDE RECORDS SUMMARY | 2024-07-23 05:30 | XMS_ITS ---
Author Name [facility] Organization [facility] [place] Address [address] [place] [address] Care Team Providers Care Driver Messenger Name Role Phone TAMRA HINSON Primary Care Provider [facility] [...] POINT OF SERVICE [facility] Jun 04, 2017 [id number] [phone] [id number] DENISHA QUENTIN PATIENT AETNA POINT OF SERVICE [facility] CHOI E Feb 19, 2017 [id number] [phone] DENISHA QUENTIN PATIENT CAREMARK PRESCRIPT ION [facility] Jun 04, 2017 [id number] QUENTIN DENNY PATIENT CAREMARK PRESCRIPT ION [facility] TRICIA RS Feb 19, 2017 [id number] [phone] DENISHA QUENTIN PATIENT CAREMARK PRESCRIPT ION [facility] Feb 19, 2017 [id number] QUENTIN DENNY PATIENT CAREMARK PRESCRIPT ION [facility] Feb 19, 2017 [id number] QUENTIN DENNY PATIENT CAREMARK PRESCRIPT ION RASHEEDA ANDLUIZ RS Aug 19, 2005 [id number] [phone] QUENTIN DENNY PATIENT CAREMARK PRESCRIPT ION RASHEEDA ANDLUIZ RS Aug 19, 2005 [id number] [phone] QUENTIN DENNY PATIENT 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EN[employer]IT PLAN POINT OF SERVICE [facility] Feb 19, 2017 [id number] [phone] [id number] [phone] QUENTIN DENNY PATIENT 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ENEFIT PLAN POINT OF SERVICE [facility] Feb 19, 2017 [id number] [phone] [id number] [phone] QUENTIN DENNY PATIENT 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 BENEFIT PLAN POINT OF SERVICE [facility] Feb 19, 2017 [id number] [phone] QUENTIN DENNY PATIENT NAMHANDLE RS BENEFIT PLAN POINT OF SERVICE [facility] Jun 04, 2017 [id number] QUENTIN DENNY PATIENT NAMHANDLE RS BENEFIT PLAN PREFERRED PROVIDER ORGANIZAT ION (PPO) STAND TRACI Aug 19, 2005 [id number] [phone] QUENTIN DENNY PATIENT MEDICARE ([facility]) MEDICARE () PART B Apr 19, 2013 PART B [id number] [phone] [id number] QUENTIN DENNY PATIENT MEDICARE ([facility]) MEDICARE () PART B Apr 19, 2013 PART B [id number] [phone] QUENTIN DENNY PATIENT MEDICARE ([facility]) MEDICARE () PART B Apr 19, 2013 PART B [id number] QUENTIN DENNY PATIENT MEDICARE ([facility]) MEDICARE () PART B Apr 19, 2013 PART B [id number] QUENTIN DENNY PATIENT MEDICARE ([facility]) MEDICARE () PART A Mar 22, 2013 PART A [id number] QUENTIN DENNY PATIENT MEDICARE ([facility]) MEDICARE (M) PART A Mar 22, 2013 PART A [id number] QUENTIN DENNY PATIENT MEDICARE (WNR) MEDICARE (M) PART A Mar 22, 2013 PART A [id number] QUENTIN DENNY PATIENT MEDICARE (WNR) MEDICARE (M) PART A Mar 22, 2013 PART A [id number] QUENTIN DENNY PATIENT MEDICARE ([place]NR) MEDICARE (M) PART A Mar 22, 2013 PART A [id number] QUENTIN DENNY PATIENT MEDICARE ([place]NR) MEDICARE (M) PART B Mar 22, 2013 PART B [id number] QUENTIN DENNY PATIENT Selected Encounter This section includes the information on record at [place] for the Encounter. Date/Time Encounter Type Encounter Description Reason Provider Source Jul 23, 2024 09:30 AM OFFICE O/P EST LOW 20 MIN PODIATRY ICD-10-CM B35.3 Tinea THA Avalos [facility] Encounter Template Text not used by [place] Assessments - Encounter Diagnoses This section includes the primary and secondary diagnoses documented for the Encounter. Date/Time Primary/Secondary Diagnosis Diagnosis Name Provider Source Jul 23, 2024 03:19 PM PRIMARY Tinea pedis [facility] [facility] Jul 23, 2024 03:19 PM SECONDARY Nail dystrophy [facility] Jul 23, 2024 03:19 PM SECONDARY Tinea unguium BABATUNDETHA Pamela [facility] Plan of Treatment: Future Appointments (+ 6 months) and Future Tests (+/- 45 days) The Plan of Treatment section includes future care activities for the patient from all [place] treatmentfacilities. This section includes future appointments and future orders which are active, pending or scheduled. Future Appointments This section includes appointments that were scheduled to occur 6 months from the date of the Encounter, up to a maximum of 20 appointments. The data comes from all [place] treatment facilities. Appointment Date/Time Appointment Type Appointme nt Facility Name Aug 27, 2024 10:00 AM AMBULATORY - MEDICINE [facility] Oct 27, 2024 09:00 AM AMBULATORY - MEDICINE [facility] Dec 03, 2024 10:30 AM [facility] Dec 03, 2024 11:00 AM [facility] Dec 31, 2024 09:00 AM AMBULATORY - MEDICINE [facility] Active, Pending, and Scheduled Orders This section includes a listing of several types of active, pending, and scheduled orders, including clinic medications orders, diagnostic test orders, procedure orders and consult orders; where the start date of the order is 45 days before the date of the Encounter or 45 days after the date of theEncounter. The data comes from all [facility] facilities. Test Date/Time Test Type Test Details Facility Name Aug 25, 2024 12:00 AM Laboratory - Chemistry [facility] B[facility] Aug 25, 2024 12:00 AM Laboratory - Chemistry Order LIPID PANEL, NON FASTING BLOOD (SST-SERUM) [facility] Aug 25, 2024 12:00 AM Laboratory - Chemistry Order MICROALBUMIN CREATININE RATIO PANEL URINE (RANDOM) [facility] Aug 25, 2024 12:00 AM Laboratory - Chemistry Order BASIC METABOLIC PANEL (non-fasting) BLOOD (SST-SERUM) [facility] Aug 25, 2024 12:00 AM Laboratory - Chemistry Order FERRITIN BLOOD (SST-SERUM) [facility] Aug 25, 2024 12:00 AM Laboratory - Chemistry Order CBC BLOOD (LAV-BLOOD) [facility] Aug 25, 2024 12:00 AM Laboratory - Chemistry Order IRON & TIBC PANEL BLOOD (SST-SERUM) [facility] Aug 25, 2024 12:00 AM Laboratory - Chemistry Order CYSTATIN C CREATININE EGFR PANEL (WHV) BLOOD (SST-GOLD) [facility] Social History: Smoking Status (Most current) and Tobacco Use (All prior to encounter date) This section includes the most current, and the historical, smoking and tobacco- related health factors from the [place] facility where the Encounter took place. Current Smoking Status This section includes the most current smoking, or tobacco-related health factor, from the [place] facility where the Encounter took place. Date/Time Current Smoking Status Comment [facility] Apr 24, 2024 10:00 AM VA-TOBACCO USE FOR MICHAEL CIGARETTES [facility] [place] [facility] Tobacco Use History This section includes a history of the smoking, or tobacco-related health factors, that were collected on or before the date of the Encounter. The data comes from the [place] facility where the Encounter took place. Date/Time Smoking Status/Tobac co Use Comment [facility] Apr 24, 2024 10:00 AM VA-TOBACCO USE FORMER CIGARETTES [facility] [place] [facility] Apr 24, 2023 10:30 AM VA-TOBACCO FORMER USER [facility] [place] [facility] Apr 24, 2023 10:30 AM VA-TOBACCO QUIT 15 YRS OR MORE [facility] [place] [facility] Mar 22, 2022 11:00 AM VA-TOBACCO FORMER USER [facility] [place] [facility] Mar 22, 2022 11:00 AM VA-TOBACCO QUIT 15 YRS OR MORE [facility] [place] [facility] Oct 21, 2020 09:30 AM VA-TOBACCO NEVER USED [facility] [place] [facility] Nov 04, 2019 08:30 AM VA-TOBACCO FORMER USER [facility] [place] [facility] Nov 04, 2019 08:30 AM VA-TOBACCO QUIT 15 YRS OR MORE [facility] [place] [facility] May 06, 2018 08:27 AM VA-TOBACCO FORMER USER [facility] [place] [facility] May 06, 2018 08:27 AM VA-TOBACCO QUIT 15 YRS OR MORE [facility] [place] [facility] Nov 05, 2017 09:54 AM QUIT TOBACCO USE > 7 YEARS AGO [facility] [place] [facility] June 28, 2016 09:36 AM QUIT TOBACCO USE > 7 YEARS AGO [facility] [place] [facility] Mar 15, 2015 10:54 AM LIFETIME NON-TOBACCO USER quit cigs. 1998 [facility] Nov 14, 2004 02:40 PM HISTORY OF SMOKING [facility] May 18, 2003 09:05 AM HISTORY OF SMOKING quit August 1998 [facility] Jun 09, 2002 08:40 AM HISTORY OF SMOKING quit 99. [facility] Jun 09, 2002 08:40 AM QUIT TOBACCO USE > 7 YEARS AGO [facility] Jun 10, 2001 08:50 AM HISTORY OF SMOKING quit 1998 [facility] Jun 10, 2001 08:50 AM QUIT TOBACCO USE 1-7 YEARS AGO [facility] Jun 08, 2000 02:55 PM HISTORY OF SMOKING quit 2yrs ago [facility] Encounter Notes: All associated encounter notes This section contains the clinical notes associated to the Encounter. Date/Time Encounter Note(s) Provider Source Jul 23, 2024 09:57 AM PODIATRY NOTE: LOCAL TITLE: PODIATRY NOTE STANDARD TITLE: PODIATRY NOTE DATE OF NOTE: JUL 23, 2024@09:57 ENTRY DATE: JUL 23, 2024@09:57:16 AUTHOR: THA STRE[address] COSIGNER: URGENCY: STATUS: COMPLETED Podiatry High Risk Foot Encounter [facility] provider: Tha Street DP Date: JUL 23, 2024 QUENTIN DENNY MALE [id number] [place] [address] FROM Apr TO Jan Primary Care:TAMRA HINSON Subjective: 74-year-old male with history of type 2 diabetes, metatarsal fracture healed, returning for routine footcare today complains of rash on right foot that is only bothersome in appearance and otherwise asymptomatic located over the lateral foot and base of third fourth and fifth toes. Only on the right side no contralateral rash on the left. Diabetic and or PVD LE History: [x] diabetic [ ] pvd [ ] pvd interventions [ ] neuropathy [ ] meds: [ ] wound active [ ] infection active [ ] wound history yes [ ] amputation hx [ ] deformity [ ] charcot [ ] surgical deformity intervention [facility] list CPRS: Active problems - Computerized Problem List is the source for the followin. Iron deficiency anemia 2. Bilateral osteoarthritis of knees 3. Carotid artery stenosis 4. Raynaud's phenomenon 5. Esophageal stricture 6. Type 2 diabetes mellitus (SNOMED CT 01595736) 7. Endoscopy abnormal 8. Chronic obstructive lung disease (SNOMED CT 28996766) 9. Diffuse spasm of esophagus (SNOMED CT 87968929) 10. Chronic Renal disease 11. Hyperlipidemia (SNOMED CT 24192898) 12. Coronary Artery Disease * 13. Psoriasis * 14. Male erectile disorder 15. Family history of malignant neoplasm of prostate 16. Essential hypertension (SNOMED CT 73145413) Active Out Patient medications: Active Outpatient Medications [...] (S) Indication: FOR TYPE 2 DIABETES MELLITUS 4) FAMOTIDINE 40MG TAB TAKE ONE TABLET BY MOUTH ONCE DAILY FOR ACTIVE STOMACH ACID Indication: FOR GASTROESOPHAGEAL REFLUX DISEASE 5) FERROUS GLUCONATE 324MG TAB TAKE TWO TABLETS BY MOUTH ONCE ACTIVE DAILY Indication: TO SUPPLEMENT IRON 6) INCONT [...] TAKE ONE TABLET BY MOUTH NEEDED ACTIVE (S) Pending Outpatient Medications Status 1) HYDROPHILIC (EQV EUCERIN) TOP CREAM APPLY A SMALL AMOUNT PENDING TOPICALLY ONCE DAILY TO DRY, CRACKED SKIN ON FEET Indication: FOR DRY SKIN 2) TERBINAFINE HCL 1% CREAM APPLY A THIN LAYER TOPICALLY ONCE PENDING DAILY Indication: FOR ATHLETE'S FOOT Active Non-VA Medications Status 1) Non-VA ALBUTEROL [...] (1 ACTIVE DOSE) BY MOUTH ONCE DAILY 20 Total Medications Imaging reports: Lab Data: CREATININE-EGFR 02/14/24 08:50 1.39 08/07/23 14:23 1.58 H No Data Available for EGFR 1 yr HEMOGLOBIN A1C TREND Collection DT Spec HGBA1c 04/23/2024 09:36 BLOOD 6.1 H 10/19/2023 09:00 BLOOD 6.0 H 10/04/2022 07:33 BLOOD 6.0 H 03/09/2022 08:25 BLOOD 6.8 H 09/05/2021 07:39 BLOOD 6.5 H ALBUMIN Collection DT Specimen Test Name Result Units Ref Range 08/07/2023 14:23 SERUM ALBUMIN 4.1 g/dL 3.5 - 5.0 BMI:BMI: 24.9 PE:General: Well-appearing no apparent distress Palpable pedal pulses Warm pink well-hydrated skin except for area of rash right foot Sensation intact No edema Pale sharply demarcated dry scaling rash from base of third fourth fifth toes and laterally across the foot to base of fifth metatarsal on the right side Nails on the right foot are also moderately thickened and dystrophic consistent with tinea Nails on the left foot are normal No rash dorsally laterally or plantarly identified under the left PAVE: 1 Impression: Low risk exam Tinea skin right foot probably extension from toenail infection with tinea Nail dystrophy Plan: -Debrided nails on right side 1 through 5 without incident -Trimmed nails on left side without incident -Rx for terbinafine cream 1% applied once or twice daily to area of rash for 4 to 6 weeks until clear and then once a week later to maintain 60 mg 3 refills -Patient had diabetes foot care education at this [...] medicine or razors. Level of Understanding: Good Recall: December 2024 Return sooner if any clinical signs of [...] as results of the physical exam and sales and leasing consultant opinions and recommendations as [...] -The on this visit was given information My [employer] messaging service and encouraged to enroll if not already having done so. /noe/ [address] DPM PODIATRY ATTENDING Signed: 07/23/2024 15:[address] [facility]
--- OUTSIDE RECORDS SUMMARY | 2024-08-27 06:00 | XMS_ITS ---
Author Name [facility] Organization [facility] [place] Address [address] [place] [id number] Care Team Providers Care Manager Provider Relations Name Role Phone TAMRA HINSON Primary [facility] Insurance Providers: All historical and [...] POINT OF SERVICE [facility] Jun 04, 2017 [id number] CELSAQUENTIN BE PATIENT AETNA POINT OF SERVICE [facility] E Feb 19, 2017 [id number] QUENTIN DENNY PATIENT CAREMARK PRESCRIPT ION [facility] Jun 04, 2017 [id number] [phone] CELSAHAILE QUENTIN PATIENT CAREMARK PRESCRIPT ION RASHEEDA CLARKE RS Feb 19, 2017 [id number] DENISHAQUENTIN PATIENT CAREMARK PRESCRIPT ION RASHEEDA CLARKE RS Feb 19, 2017 [id number] QUENTIN DENNY PATIENT CAREMARK PRESCRIPT ION [facility] Feb 19, 2017 [id number] QUENTIN DENNY PATIENT CAREMARK PRESCRIPT ION [facility] Feb 19, 2017 [id number] QUENTIN DENNY PATIENT CAREMARK PRESCRIPT ION RASHEEDA ANDLUIZ RS Aug 19, 2005 [id number] [phone] QUENTIN DENNY PATIENT CAREMARK PRESCRIPT ION RASHEEDA ANDLUIZ RS Aug 19, 2005 [id number] [phone] QUENTIN DENNY PATIENT 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 POINT OF SERVICE [facility] Feb 19, 2017 [id number] QUENTIN DENNY PATIENT 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 POINT OF SERVICE [facility] Feb 19, 2017 [id number] [phone] QUENTIN DENNY PATIENT 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 POINT OF SERVICE [facility] Feb 19, 2017 [id number] [phone] QUENTIN DENNY PATIENT NAMHANDLE RS BENEFIT PLAN POINT OF SERVICE [facility] Jun 04, 2017 [id number] QUENTIN DENNY PATIENT NAMHANDLE RS BENEFIT PLAN PREFERRED PROVIDER ORGANIZAT ION (PPO) STAND TRACI Aug 19, 2005 [id number] QUENTIN DENNY PATIENT MEDICARE (WN) MEDICARE () PART B Apr 19, 2013 PART B [id number] [phone] QUENTIN DENNY PATIENT MEDICARE (WN) MEDICARE (M) PART B Apr 19, 2013 PART B [id number] [phone] QUENTIN DENNY PATIENT MEDICARE (WN) MEDICARE (M) PART B Apr 19, 2013 PART B [id number] [phone] QUENTIN DENNY PATIENT MEDICARE (WN) MEDICARE () PART B Apr 19, 2013 PART B [id number] QUENTIN DENNY PATIENT MEDICARE (WNR) MEDICARE (M) PART A Mar 22, 2013 PART A [id number] QUENTIN DENNY PATIENT MEDICARE (WNR) MEDICARE (M) PART A Mar 22, 2013 PART A [id number] QUENTIN DENNY PATIENT MEDICARE (WNR) MEDICARE (M) PART A Mar 22, 2013 PART A [id number] QUENTIN DENNY PATIENT MEDICARE (WNR) MEDICARE (M) PART A Mar 22, 2013 PART A [id number] 31 QUENTIN DENNY PATIENT MEDICARE (WNR) MEDICARE (M) PART A Mar 22, 2013 PART A [id number] 31 QUENTIN DENNY PATIENT MEDICARE (WNR) MEDICARE (M) PART B Mar 22, 2013 PART B [id number] QUENTIN DENNY PATIENT Selected Encounter This section includes the information on record at OR for the Encounter. Date/Time Encounter Type Encounter Description Reason Provider Source Aug 27, 2024 10:00 AM OFFICE O/P EST MOD 30 MIN RENAL/NEPHROL(EXCE PT DIALYSIS) ICD-10-CM N18.31 Chronic kidney disease, stage 3a JEFFREY STEVENS [facility] Encounter Template Text not used by OR Assessments - Encounter Diagnoses This section includes the primary and secondary diagnoses documented for the Encounter. Date/Time Primary/Secondary Diagnosis Diagnosis Name Provider Source Aug 27, 2024 04:52 PM PRIMARY Chronic kidney disease, stage 3a NYE STEVENS [place] [facility] [place] [facility] Aug 27, 2024 04:52 PM SECONDARY Essential (primary) hypertension NEY STEVENS [place] [facility] [place] [facility] Aug 27, 2024 04:52 PM SECONDARY Iron deficiency anemia, unspecified NEY STEVENS [place] [facility] [place] [facility] Aug 27, 2024 04:52 PM SECONDARY Mixed hyperlipidemia NEY STEVENS [place] [facility] [place] [facility] Aug 27, 2024 04:52 PM SECONDARY Type 2 diabetes mellitus without complications NEY STEVENS [facility] Plan of Treatment: Future Appointments (+ 6 months) and Future Tests (+/- 45 days) The Plan of Treatment section includes future care activities for the patient from all [facility]. This section includes future appointments and future orders which are active, pending or scheduled. Future Appointments This section includes appointments that were scheduled to occur 6 months from the date of the Encounter, up to a maximum of 20 appointments. The data comes from all OR treatment facilities. Appointment Date/Time Appointment Type Appointme nt Facility Name Oct 27, 2024 09:00 AM [facility]ATORY - [facility] Dec 03, 2024 10:30 AM [facility]ULATORY [facility] Dec 03, 2024 11:00 AM [facility]ULATORY [facility] Dec 31, 2024 09:00 AM [facility]BULATORY [facility] Lab Results: +/- 30 days of the encounter This section includes the Chemistry and Hematology Lab Results on record with OR for the patient. Radiology Reports and Pathology Reports are provided separately, in subsequent sections. Lab Results This section contains the Chemistry/Hematology Results that were resulted 30 days before or 30 daysafter the date of the Encounter. Date/Time Source Result Type Result - Unit Interpretation Reference Range Specimen Type Comment Aug 18, 2024 09:17 AM [facility] CYSTATIN C CREATININE EGFR PANEL ([facility]) SERUM Specimen Type: SERUM No comment entered. Ordering Provider: VAIBHAV STEVENS Report Released Date/Time: Jul 30, 2024 10:34 AM Reporting Lab: [facility] [address] [address] Performing Lab: [facility] [address] [address] eGFR(CREAT-CYSTATIN C) 45 mL/min L >=60 CREATININE,SERUM([facility]) 1.26 mg/dL 0.5-1.5 CYSTATIN C ([facility]) 1.79 mg/L H 0.51-1.05 Aug 18, 2024 09:17 AM [facility] ALBUMIN SERUM Specimen Type: SERUM No comment entered. Ordering Provider: SNOW STEVENS Report Released Date/Time: Feb 26, 2024 09:10 AM Reporting Lab: [facility] [address] [address] Performing Lab: [facility] [address] [address] ALBUMIN 4.4 g/dL 3.2-4.6 Aug 18, 2024 09:17 AM [facility] MICROALBUMIN CREATININE RATIO PANEL URINE Spe cimen Type: URINE No comment entered. Ordering Provider: SNOW STEVENS Report Released Date/Time: Feb 26, 2024 09:10 AM Reporting Lab: [facility] [address] [address] Performing Lab: [facility] [address] MICROALBUMIN/CREATININE RATIO 152.9 mg/g H 0-29.9 MICROALBUMIN,QUANTITATIVE 10.4 mg/dL RR UNAVAIL CREATININE URINE 68.03 mg/dL 63-166 Aug 18, 2024 09:17 AM [facility] LIPID PANEL, NON FASTING SERUM Specimen Type: SERUM No comment entered. Ordering Provider: SNOW STEVENS Report Released Date/Time: Feb 26, 2024 09:10 AM Reporting Lab: [address] [address] Performing Lab: [address] [address] CHOLESTEROL 112 mg/dL TRIGLYCERIDE 281 mg/dL H 0-150 LDL calculated 25 mg/dL 0-129 CHOL/HDL 3.6 HDL CHOLESTEROL 31 mg/dL L >40 Aug 18, 2024 09:17 AM [facility] BASIC METABOLIC PANEL (non-fasting) SERUM Spe cimen Type: SERUM No comment entered. Ordering Provider: SNOW STEVENS Report Released Date/Time: Feb 26, 2024 09:10 AM Reporting Lab: [address] [address] Performing Lab: [facility] [address] [address] UREA NITROGEN 11 mg/dL 8-26 GLUCOSE 97 mg/dL 65-100 SODIUM 144 mmol/L 136-145 POTASSIUM 4.1 mmol/L 3.5-5.1 CHLORIDE 106 mmol/L 98-107 CO2 28 meq/L 23-31 CALCIUM 8.8 mg/dL 8.8-10 CREATININE, Serum 1.32 mg/dL H 0.72-1.25 eGFR(CKD-EPI 2020) 56 mL/min L >60 Aug 18, 2024 09:17 AM [facility] FERRITIN SERUM Specimen Type: SERUM No comment entered. Ordering Provider: SNOW STEVENS Report Released Date/Time: Feb 26, 2024 09:10 AM Reporting Lab: [facility] [address] [address] Performing Lab: [address] [address] FERRITIN 64.2 ng/mL 21.8-274.7 Aug 18, 2024 09:17 AM [facility] CBC BLOOD Specimen Type: BLOOD No comment entered. Ordering Provider: SNOW STEVENS Report Released Date/Time: Feb 26, 2024 09:10 AM Reporting Lab: [facility] [address] [address] Performing Lab: [address] [address] WBC 9.00 10*3/uL 4.50-11.00 RBC 4.27 10*6/uL 4.23-5.66 HGB 12.8 g/dL 12.8-17 HCT 39.6 39.2-50.4 MCV 92.7 fL 82-99 MCHC 32.3 g/dL 30.8-35.1 PLT 185 10*3/uL 140-360 MPV 11.4 fL 9.2-12.4 RDW-CV 14.7 12.0-16.0 MCH 30.0 pg 26.2-32.6 Aug 18, 2024 09:17 AM [facility] IRON & TIBC PANEL SERUM Specimen Type: SERUM No comment entered. Ordering Provider: SNOW STEVENS Report Released Date/Time: Feb 26, 2024 09:10 AM Reporting Lab: [facility] [address] [address] Performing Lab: [facility] [address] [address] TIBC 286 ug/dL 204-475 IRON 79 ug/dL 65-175 Transferrin Saturation 27.6 15-45 Transferrin (TRF) 217 mg/dL 180-382 Vital Signs: All taken on the encounter date This section contains inpatient and outpatient Vital Signs collected on the date of the Encounter. Date/Time Temperature Pulse Blood Pressure Respiratory Rate SP02 Pain Height Weight Body Mass Index Source Aug 27, 2024 10:21 AM 97.2 F 86 /min 148/72 mm[Hg] 16 /min 97 % 0 171 lb 25 [facility] Social History: Smoking Status (Most current) and Tobacco Use (All prior to encounter date) This section includes the most current, and the historical, smoking and tobacco- related health factors from the OR facility where the Encounter took place. Current Smoking Status This section includes the most current smoking, or tobacco-related health factor, from the OR facility where the Encounter took place. Date/Time Current Smoking Status Comment James rivera Apr 24, 2024 10:00 AM VA-TOBACCO USE FOR MICHAEL CIGARETTES [facility] Tobacco Use History This section includes a history of the smoking, or tobacco-related health factors, that were collected on or before the date of the Encounter. The data comes from the OR facility where the Encounter took place. Date/Time Smoking Status/Tobac co Use Comment Facility Apr 24, 2024 10:00 AM VA-TOBACCO USE FORMER CIGARETTES [facility] Apr 24, 2023 10:30 AM VA-TOBACCO FORMER USER [facility] Apr 24, 2023 10:30 AM VA-TOBACCO QUIT [address] [facility] Mar 22, 2022 11:00 AM VA-TOBACCO FORMER USER [facility] Mar 22, 2022 11:00 AM VA-TOBACCO QUIT 15 YRS OR MORE [facility] [place] [facility] Oct 21, 2020 09:30 AM VA-TOBACCO NEVER USED OR [facility] [place] [facility] Nov 04, 2019 08:30 AM VA-TOBACCO FORMER USER [place] [facility] [place] [facility] Nov 04, 2019 08:30 AM VA-TOBACCO QUIT 15 YRS OR MORE OR [facility] [place] [facility] May 06, 2018 08:27 AM VA-TOBACCO FORMER USER OR [facility] [place] [facility] May 06, 2018 08:27 AM VA-TOBACCO QUIT 15 YRS OR MORE OR [facility] [place] [facility] Nov 05, 2017 09:54 AM QUIT TOBACCO USE > 7 YEARS AGO OR [facility] [place] [facility] June 28, 2016 09:36 AM QUIT TOBACCO USE > 7 YEARS AGO OR [facility] [place] [facility] Mar 15, 2015 10:54 AM LIFETIME NON-TOBACCO USER quit cigs. 1998 OR [facility] [place] [facility] Nov 14, 2004 02:40 PM [facility] [place] [facility] May 18, 2003 09:05 AM HISTORY OF SMOKING quit August 1998 OR [facility] [place] [facility] Jun 09, 2002 08:40 AM HISTORY OF SMOKING quit 99. OR [facility] [place] [facility] Jun 09, 2002 08:40 AM QUIT TOBACCO USE > 7 YEARS AGO OR [facility] [place] [facility] Jun 10, 2001 08:50 AM HISTORY OF SMOKING quit 1998 [place] [facility] [place] [facility] Jun 10, 2001 08:50 AM QUIT TOBACCO USE 1-7 YEARS AGO [place] [facility] [place] [facility] Jun 08, 2000 02:55 PM HISTORY OF SMOKING quit 2yrs ago [place] [facility] [place] [facility] Encounter Notes: All associated encounter notes This section contains the clinical notes associated to the Encounter. Date/Time Encounter Note(s) Provider Source Aug 27, 2024 05:18 AM NEPHROLOGY E & M NOTE: LOCAL TITLE: NEPHROLOGY NOTE STANDARD TITLE: NEPHROLOGY E & M NOTE DATE OF NOTE: AUG 27, 2024@05:18 ENTRY DATE: AUG 27, 2024@05:18:46 AUTHOR: SNOW STEVENS EXP COSIGNER: URGENCY: STATUS: COMPLETED Nephrology Follow-Up Note 08/27/24 10:00 Subjective Information: Consultation Problems:CKD stage 3A: hypertensive Nephrosclerosis Subjective Information:73 year old diabetic male with a history of hypertension, hyperlipidemia and CKD presenting for continued management of his renal disease and related problems. The patient denies any new problems. No problem with his present medical regimen. He denies chest pain, SOB or edema. Medications: Active and Recently Outpatient Medications (excluding Supplies): [...] ACTIVE DAILY Indication: TO SUPPLEMENT IRON 6) HYDROPHILIC (EQV EUCERIN) TOP CREAM APPLY A SMALL AMOUNT ACTIVE TOPICALLY ONCE DAILY TO DRY, CRACKED SKIN ON FEET Indication: FOR DRY SKIN 7) MULTIVIT/OPHTH AREDS2/LUTE/ZEAX CAP/TAB TAKE 1 CAPSULE BY ACTIVE MOUTH TWICE DAILY IN THE MORNING AND EVENING, WITH FOOD Indication: FOR VITAMIN SUPPLEMENTATION 8) PANTOPRAZOLE NA 40MG EC TAB TAKE ONE TABLET BY MOUTH TWICE ACTIVE DAILY Indication: FOR EXCESSIVE PRODUCTION OF STOMACH ACID 9) TADALAFIL 20MG TAB TAKE ONE TABLET BY MOUTH NEEDED ACTIVE 10) TERBINAFINE HCL 1% CREAM APPLY A THIN LAYER TOPICALLY ONCE ACTIVE DAILY APPLY DAILY FOR 6 WEEKS THEN WEEKLY TO MAINTAIN. Indication: FOR ATHLETE'S FOOT Active Non-VA Medications [...] BY MOUTH ONCE DAILY 18 Total Medications Review of Systems: Constitutional: no chills no fever no night sweats Head/Neck: no Headache Ear/Nose/Mouth/Throat nostril inflam/lesions throat soreness/lesions/exudates RESP No Cough No SOB No wheezing CARD No Chest Pain No Palpitaions No Periperal edema GI No Abdominal pain No Diarrhea No vomiting ENDO No excessive thirst No Excessive hunger No Weight loss or weight gain : No hematuria No dysuria No proteinuria Vital Signs: Blood Pressure: 148/72 (08/27/2024 10:21) Pain: 0 (08/27/2024 10:21) Patient Height: 70 in [177.8 cm] (04/24/2023 10:25) Patient Weight: 171 lb [77.56 kg] (08/27/2024 10:21) Pulse: 86 (08/27/2024 10:21) Respiration: 16 (08/27/2024 10:21) Temperature: 97.2 F [36.2 C] (08/27/2024 10:21) Vitals Above General:Alert, cooperative in NAD HEENT: NECK:supple; no JVD; LUNGS:clear Heart:RRR II/ systolic murmur best in the right upper sternal border; ABD:increased abdominal girth; Ext:trace lower leg edema; SKIN: Assessment and Plans: Below Areas to address in the evaluation and management of the patient's CKD and to reduce renal disease progression is as follows: Problem addressed this visit #1. CKD [id number]:Hypertensive Nephrosclerosis. Patient renal state is stable with no uremic sx or fluid overload with no rapid renal decline. Patient labs from August 18, 2024 showed a potassium of 4.1, bicarb of 28, GFR of 56 and creatinine of 1.32. His urine miroalb/cr ratio was 186 Jan has dropped slightly to 152.9. He will continue empagliflozin 10mg/day. Will reassess in 8 months obtaining labs for that visit. Overview of patient CKD management -Blood pressure: 148/72 p86 -Bone mineral Disease: at goal -Potassium:4.1 -diet: Low sodium, low cholesterol/diabetic diet -Bicarb: at goal -Anemia: hgb greater than 10? yes12.8 -Lipid profile: LDL< 100? yes -SGLT2 inhibitor/GLP1-RA; yes empagliflozin -urine microalb/cr ratio: 153 -Transplant:no -Vascular Assess:premature -On Curt/ARB: -Tobacco use:no -Code status:no -Health Care Proxy: ( ) #2. Hypertension Goal: 110-135/55-75 Patient blood pressure 148/72 Plan:The patient will continue his BP medications:carvedilol, amlodipine Pt should adhere to a low salt diet and to heart healthy diet Will recheck his blood pressure on return #3. Anemia: Iron Deficiency Anemia and anemia of chronic disease The patient has no symptons of blood loss including easy bruising nosebleeds or stool changes (Date) 08/18/24 ferritin goal >100( 642 ) TSAT goal>20: ( 28 ) CBC: Hb 12.8-17( 12.8) PLAN: Will obtain, CBC and iron studies on F/U #4. Mineral Bone studies/Hyperparathyroidism) No symptoms of stone or PTH issues goal PTH<350 pg/ml (106 ng/ml ) PTH at KDIGO goal for level of CKD Most recent Calcium(8.8) and Phosphate(3.6) were normal 25OH VitD 39; Plan: Will continue to monitor and recheck PTH, Calcium and VitD as needed #5. Lipid status: LDL goal is <100; The patient's most recent LDL was 25. Plan: The pt adheres to Heart Healthy low fat diet and exercise may obtain fasting lipid studies for f/u as needed; Will cont Atorvastatin #6. Nutritional State Albumin is 4.4 Patient's weight: 171 Plan: Encourage patient to exercise and adhere to a heart healthy diet #7. 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 Patient will return 8 months obtain blood work for that visit. Will consider the following labs as needed CBC, ferritin, TSAT, urine microalb/cr ratio, Lytes,creatinine, GFR, Lipid profile, Albumin, PO4, PTH, calcium VitD, Patient labs and physical review with the patient. Patient educated on their renal status, all questions were addressed at this visit. This was a 20 minute visit > 50% of which was spent in counseling and coordination of care. Medication Reconciliation: Outpatient: Has the patient been taking medications as documented in the EMLR? YES: The patient has been taking medications as documented in the EMLR. Essential Medication List for Review used to complete this medication reconciliation. INCLUDED IN THIS LIST: Alphabetical list of active outpatient prescriptions dispensed from this OR (local) and dispensed from 08/27/2024 16:51 VITAL SIGNS SELECTED Measurement DT HEIGHT WEIGHT BP IN(CM) LB(KG)[BMI] 08/27/2024 10:21 171(77.56)[25] 148/72 04/24/2024 10:08 173(78.47)[25] 137/74 02/26/2024 09:02 170(77.11)[24] 144/71 01/11/2024 07:58 138/92 10/29/2023 09:59 170(77.11)[24] 142/80 08/15/2023 09:01 168(76.20)[24] 149/72 04/24/2023 10:33 138/70 04/24/2023 10:25 70(177.80) 166(75.30)[24] 04/17/2023 11:36 171(77.56)[26] 118/63 01/03/2023 10:34 165(74.84)[25] 120/62 10/17/2022 12:53 169.7(76.97)[26] 105/48 CHEM 7 Results Collection DT Spec Sodium K+/Pot CL CO2 GLUCOSE BUN 08/18/2024 09:17 SERUM 144 4.1 106 28 97 11 02/14/2024 08:50 SERUM 141 4.1 105 26 123 H 21 08/07/2023 14:23 SERUM 137 3.7 103 23 129 H 21 04/04/2023 10:42 SERUM 139 4.0 103 27 140 H 16 12/18/2022 10:03 SERUM 137 4.9 102 23 112 H 20 10/04/2022 07:33 SERUM 136 5.3 H 102 24 117 H 16 Lipid Profile Collection DT Specimen Test Name Result Units Ref Range 08/18/2024 09:17 SERUM CHOLESTEROL 112 mg/dL <7 - 199 04/23/2024 09:36 SERUM CHOLESTEROL 124 mg/dL <7 - 199 10/19/2023 09:00 SERUM CHOLESTEROL 118 mg/dL <7 - 199 08/07/2023 14:23 SERUM CHOLESTEROL 121 mg/dL <7 - 199 12/18/2022 10:03 SERUM CHOLESTEROL 110 mg/dL <7 - 199 10/04/2022 07:33 SERUM CHOLESTEROL 138 mg/dL <7 - 199 08/18/2024 09:17 SERUM TRIGLYCERIDE 281 H mg/dL 0 - 150 04/23/2024 09:36 SERUM TRIGLYCERIDE 307 H mg/dL 0 - 150 10/19/2023 09:00 SERUM TRIGLYCERIDE 237 H mg/dL 0 - 150 12/18/2022 10:03 SERUM TRIGLYCERIDE 277 H mg/dL 0 - 150 10/04/2022 07:33 SERUM TRIGLYCERIDE 299 H mg/dL 0 - 150 08/18/2024 09:17 SERUM HDL CHOLESTEROL 31 L mg/dL Ref: >=40 04/23/2024 09:36 SERUM HDL CHOLESTEROL 33 L mg/dL 40 - 60 10/19/2023 09:00 SERUM HDL CHOLESTEROL 31 L mg/dL 40 - 60 08/07/2023 14:23 SERUM HDL CHOLESTEROL 35 L mg/dL 40 - 60 12/18/2022 10:03 SERUM HDL CHOLESTEROL 24 L mg/dL 40 - 60 10/04/2022 07:33 SERUM HDL CHOLESTEROL 27 L mg/dL 40 - 60 08/18/2024 09:17 SERUM LDL calculated 25 mg/dL 0 - 129 04/23/2024 09:36 SERUM LDL calculated Reflex to dLDL mg/dL 0 - 129 10/19/2023 09:00 SERUM LDL calculated 40 mg/dL 0 - 129 12/18/2022 10:03 SERUM LDL calculated 31 mg/dL 0 - 129 10/04/2022 07:33 SERUM LDL calculated 51 mg/dL 0 - 129 08/18/2024 09:17 SERUM CHOL/HDL 3.6 04/23/2024 09:36 SERUM CHOL/HDL 3.8 10/19/2023 09:00 SERUM CHOL/HDL 3.8 12/18/2022 10:03 SERUM CHOL/HDL 4.6 10/04/2022 07:33 SERUM CHOL/HDL 5.1 LAB TESTS SELECTED Collection DT Specimen Test Name Result Units Ref Range 04/23/2024 09:36 BLOOD !! HEMOGLOBIN A1C 6.1 H % 4.0 - 5.6 10/19/2023 09:00 BLOOD !! HEMOGLOBIN A1C 6.0 H % 4.0 - 5.6 10/04/2022 07:33 BLOOD !! HEMOGLOBIN A1C 6.0 H % 4.0 - 5.6 !! Indicates COMMENTS AVAILABLE...Refer to Interim Lab Report. LAB MICROBIOLOGY No data available LAB CUMULATIVE SELECTED 2 Collection DT Spec mALB/Cr 08/18/2024 09:17 URINE 152.9 H 02/14/2024 09:02 URINE 186.3 H 08/07/2023 14:23 URINE 56.9 H 04/04/2023 10:42 URINE 45.5 H 12/18/2022 10:03 URINE 10.3 Liver Function Tests Collection DT Spec AST ALT ALK LOREZNO ALBUMIN T BILI T. PROT 08/18/2024 09:17 SERUM 4.4 08/07/2023 14:23 SERUM 53 4.1 12/18/2022 10:03 SERUM 69 3.8 10/04/2022 07:33 SERUM 11 11 73 3.7 0.6 6.8 03/09/2022 08:25 SERUM 12 23 47 3.6 0.6 6.6 09/05/2021 07:39 SERUM 10 11 59 3.4 L 0.6 6.4 03/01/2021 08:40 SERUM 12 14 49 3.9 0.6 7.5 10/18/2020 07:41 SERUM 15 16 54 3.8 0.5 6.9 02/25/2020 08:06 SERUM 16 21 50 3.7 0.5 6.6 05/05/2019 08:10 SERUM 19 22 51 3.9 0.5 7.0 11/04/2018 07:20 SERUM 13 15 46 3.7 0.5 6.8 10/29/2017 07:07 SERUM 18 18 56 3.9 0.9 7.0 04/23/2017 07:23 SERUM 23 24 53 3.6 0.6 7.1 08/14/2016 07:26 SERUM 19 26 49 3.9 0.5 7.1 06/23/2016 08:21 SERUM 19 26 51 3.7 0.4 7.2 11/01/2015 09:02 SERUM 18 21 53 4.1 0.9 7.1 03/02/2015 08:33 SERUM 20 22 63 4.2 0.4 7.6 06/22/2014 07:11 SERUM 12 23 43 3.7 0.4 6.7 08/25/2013 08:13 SERUM 21 25 59 3.7 0.8 6.8 10/28/2012 07:07 SERUM 20 23 57 3.9 0.6 7.3 02/02/2012 07:49 SERUM 20 26 56 3.9 0.7 6.7 07/07/2011 07:33 SERUM 19 18 62 4.0 0.7 7.4 10/25/2010 07:53 SERUM 26 21 51 3.7 0.3 7.0 02/08/2010 08:05 SERUM 22 27 51 3.7 0.7 7.1 08/02/2009 08:26 SERUM 18 20 49 3.8 0.5 7.3 01/25/2009 07:54 SERUM 19 25 56 3.9 0.5 7.2 07/16/2008 07:39 SERUM 22 26 63 4.1 0.4 7.4 05/01/2007 14:36 SERUM 19 23 51 4.0 0.4 7.0 11/27/2006 07:29 SERUM 20 23 55 4.0 0.4 7.2 05/14/2006 07:10 SERUM 20 21 53 4.2 0.6 7.5 11/09/2005 08:11 SERUM 19 22 51 4.2 0.4 7.5 05/29/2005 08:27 SERUM 18 18 52 4.6 0.5 7.5 04/21/2004 09:26 SERUM 16 14 48 4.5 0.6 7.2 04/12/2004 07:58 SERUM 16 10/07/2003 09:43 SERUM 18 05/04/2003 07:22 SERUM 18 19 52 4.7 0.5 8.1 10/07/2002 07:44 SERUM 15 14 43 4.8 0.5 7.8 01/20/2002 07:32 SERUM 23 26 54 4.8 0.4 7.9 05/17/2001 09:28 SERUM 21 20 54 4.6 0.5 7.6 11/27/2000 08:30 SERUM 28 25 55 4.6 0.4 7.6 04/02/2000 07:53 SERUM 21 18 54 4.9 0.9 7.9 // SNOW STEVENS M.D. [employer] Signed: 08/27/2024 16:53 SNOW STEVENS OR [facility] [place] [facility]
--- OUTSIDE RECORDS SUMMARY | 2024-10-15 03:25 | XMS_ITS | Continuity of Care Document ---
Author Name [facility] Organization [facility] Care Team Providers Care Electronic Warfare Officer Name Role Phone [facility] Unavailable Unavailable Problems Combined list of problems [...] HCS Chronic obstructive lung disease (SNOMED CT 70094925) Active Condition [facility] Chronic Renal disease (ICD-9-CM 585.9) Active Condition [facility] Coronary Artery Disease * (ICD-9-CM 414.9) Active Condition [facility] Diffuse spasm of esophagus (SNOMED CT 96504513) Active Condition Dec 06, 2006 Entered By: YEE GAGNON Comment: s/p dilatation by Dr joey serrano - [facility] Esophageal stricture Active Condition [facility] Essential hypertension (SNOMED CT 33178166) Active Condition [facility] Family history of malignant neoplasm of prostate Active Condition Apr 26, 2001 Entered By: YEE GAGNON Comment: RADICAL PROSTATECTOMY AND ALSO LYMPH NODE DISSECTION [facility] Hyperlipidemia (SNOMED CT 96493253) Active Condition [facility] [place] [facility] Raynaud's phenomenon Active Condition [facility] Type 2 diabetes mellitus (SNOMED CT 60098719) Active Condition [facility] Coronary Artery Disease Inactive Condition 11/17/2002 May 07, 2002 Entered By: YEE GAGNON Comment: moderate ischemia in inf wall on nuclear stress-see cardio cSep 2002 Entered By: YEE GAGNON Comment: as per cardio stress test probably false +ve. [facility] Dysphagia Inactive Condition 11/17/2002Feb 12, 2 001 Entered By: YEE GAGNON Comment: secondry to esophagitis [facility] Diagnosis: ICD-10-CM N18.31 Chronic kidney disease, stage 3a Active Diagnosis [facility] Diagnosis: ICD-10-CM B35.3 Tinea pedis Active Diagnosis [facility] Diagnosis: ICD-10-CM M54.2 Cervicalgia Active Diagnosis [place] Diagnosis: ICD-10-CM Z46.0 Encounter for fit/adjst of spectacles and contact lenses Active Diagnosis [facility] Diagnosis: ICD-10-CM H35.3132 Nexdtve age-related mclr degn, bilateral, intermed dry stage Active Diagnosis [facility] Diagnosis: ICD-10-CM D50.9 Iron deficiency anemia, unspecified Active Diagnosis [facility] Diagnosis: ICD-10-CM Z46.1 Encounter for fitting and adjustment of hearing aid Active Diagnosis [place] Diagnosis: ICD-10-CM S92.302D Fx unsp metatarsal bone(s), l foot, subs for fx w routn heal Active Diagnosis [facility] Diagnosis: ICD-10-CM S92.325A Nondisp fx of second metatarsal bone, left foot, init Active Diagnosis [facility] Diagnosis: ICD-10-CM 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, left eye, with actv chrdl neovas Active Diagnosis [facility] Diagnosis: ICD-10-CM H35.3211 Exdtve age-rel mclr degn, right eye, with actv chrdl neovas Active Diagnosis [facility] Diagnosis: ICD-10-CM E11.8 Type 2 diabetes mellitus with unspecified complications Active Diagnosis [facility] Diagnosis: ICD-10-CM E11.51 Type 2 diabetes w diabetic peripheral angiopath w/o gangrene Active Diagnosis [facility] Diagnosis: ICD-10-CM E11.9 Type 2 diabetes mellitus without complications Active Diagnosis [facility] Medications Combined list of outpatient medications from [...] (INHAL ATION) ACTIVE ARJUN GAGNON JAWED 2021 [facility] AMLODIPINE BESYLATE 5MG TAB TAKE ONE TABLET BY MOUTH ONCE DAILY ORAL ACTIVE ARJUN GAGNON JAWED 2022 [facility] ASCORBIC ACID 500MG TAB TAKE ONE TABLET BY MOUTH ONCE DAILY FOR VITAMIN/ NUTRITIO N SUPPLEME NT ORAL ACTIVE 01/01/2025 [id number] 5 FURCOLO,T RUIZ 2024 100 [facility] ASCORBIC ACID 500MG TAB TAKE ONE TABLET BY MOUTH ONCE DAILY FOR VITAMIN/ NUTRITIO N SUPPLEME NT ORAL DISCONT INUED 04/17/2024 [id number] SNOW STEVENS 2023 100 [facility] ASPIRIN 81MG TAB,EC TAKE ONE TABLET BY MOUTH EVERY DAY ORAL ACTIVE ARJUN GAGNON JAWED 2008 [facility] ATORVASTATI N CA 80MG TAB TAKE ONE-HALF TABLET BY MOUTH QD ORAL ACTIVE RA COLBY LUBIN 2022 [facility] BECLOMETHAS ONE DIPROPIONAT E 80MCG/ACTUA T (HFA) INHL,ORAL,1 0.6GM INHALE 2 PUFFS BY MOUTH TWICE DAILY RESPIR ATORY (INHAL ATION) ACTIVE ARJUN GAGNON JAWED 2021 [facility] CARBOXYMETH YLCELLULOSE NA 0.5% SOLN,OPH INSTILL 1 DROP INTO EACH EYE FOUR TIMES A DAY FOR DRY EYE OPHTHA LMIC 10/09/2024 [id number] GUILLEN,LAC EY J 2023 45 [facility] CARVEDILOL 25MG TAB TAKE ONE TABLET BY MOUTH TWICE DAILY ORAL ACTIVE FURCOLO,T RUIZ 2023 [facility] CLOTRIMAZOL E 1% SOLN,TOP APPLY 1 DROP TOPICALL Y ONCE DAILY FOR FUNGAL INFECTIO N. APPLY WHEN NAIL IS DRY (NOT AFTER SHOWER/B ATH). USE FOR AT LEAST 9-12 MONTHS. REGULAR NAIL CARE IS RECOMMEN DED TOPICA L 04/10/2024 [id number] 5 FELICITAS FINE D 2023 30 [facility] EMPAGLIFLOZ IN 10MG TAB TAKE ONE TABLET BY MOUTH ONCE DAILY FOR TYPE 2 DIABETES MELLITUS ORAL ACTIVE 01/01/2025 [id number] 5 FURCOLO,T RUIZ 2023 90 [facility] EMPAGLIFLOZ IN 10MG TAB TAKE ONE TABLET BY MOUTH ONCE DAILY FOR TYPE 2 DIABETES MELLITUS ORAL DISCONT INUED 04/24/2024 [id number] 4 AHMED,[facility] JAWED 2023 90 [facility] FAMOTIDINE 40MG TAB TAKE ONE TABLET BY MOUTH ONCE DAILY FOR STOMACH ACID ORAL ACTIVE 01/01/2025 [id number] 5 FURCOLO,T RUIZ 2024 90 [facility] FAMOTIDINE 40MG TAB TAKE ONE TABLET BY MOUTH ONCE DAILY FOR STOMACH ACID ORAL DISCONT INUED 04/24/2024 [id number] MED,[facility] AMMED JAWED 2023 90 [facility] FERROUS GLUCONATE 324MG TAB TAKE TWO TABLETS BY MOUTH ONCE DAILY TO SUPPLEME NT IRON ORAL ACTIVE 04/24/2025 [id number] 5 SNOW STEVENS A 2024 200 [facility] FERROUS GLUCONATE 324MG TAB TAKE TWO TABLETS BY MOUTH ONCE DAILY TO SUPPLEME NT IRON ORAL DISCONT INUED 04/17/2024 [id number] SNOW STEVENS A 2023 200 [facility] HYDROPHILIC (EQV EUCERIN) CREAM,TOP APPLY A SMALL AMOUNT TOPICALL Y ONCE DAILY TO DRY, CRACKED SKIN ON FEET TOPICA L ACTIVE 07/24/2025 [id number] 5 FELICITAS FINE D 2024 454 [facility] HYDROPHILIC (EQV EUCERIN) CREAM,TOP APPLY A SMALL AMOUNT TOPICALL Y ONCE DAILY TO DRY, CRACKED SKIN ON FEET TOPICA L DISCONT INUED 04/10/2024 [id number] FELICITAS FINE 2023 454 [facility] MAGNESIUM OXIDE 420MG TAB TAKE ONE TABLET BY MOUTH ONCE DAILY ORAL ACTIVE ARJUN GAGNON JAWED 2018 [facility] MULTIVIT/OP HTH AREDS2/LUTE IN/ZEAXANTH IN CAP/TAB TAKE 1 CAPSULE BY MOUTH TWICE DAILY FOR VITAMIN SUPPLEME NTATION IN THE MORNING AND EVENING, WITH FOOD ORAL ACTIVE 05/07/2025 [id number] 5 MINDY,ITZEL EY J 2024 120 [facility] MULTIVIT/OP HTH AREDS2/LUTE IN/ZEAXANTH IN CAP/TAB TAKE 1 CAPSULE BY MOUTH TWICE DAILY FOR VITAMIN SUPPLEME NTATION IN THE MORNING AND EVENING, WITH FOOD ORAL DISCONT INUED 10/09/2024 [id number] 5 MINDY,LAC EY J 2023 120 [facility] OLODATEROL 2.5MCG/TIOT ROPIUM 2.5MCG/ACTU AT INHL,ORAL,6 0D,4GM INHALE 2 PUFFS (1 DOSE) BY MOUTH ONCE DAILY RESPIR ATORY (INHAL ATION) ACTIVE ARJUN GAGNON JAWED 2018 [facility] PANTOPRAZOL E NA 40MG TAB,EC TAKE ONE TABLET BY MOUTH TWICE DAILY FOR EXCESSIV E PRODUCTI ON OF STOMACH ACID ORAL ACTIVE 12/21/2024 [id number] 5 FURCOLO,T RUIZ 2024 180 [facility] TADALAFIL 20MG TAB TAKE ONE TABLET BY MOUTH NEEDED ORAL ACTIVE 07/17/2025 [id number] 5 FURCOLO,T RUIZ 2024 12 [facility] TADALAFIL 20MG TAB TAKE ONE TABLET BY MOUTH NEEDED ORAL DISCONT INUED 10/03/2024 [id number] 5 JACOBAsia SHARIF RUIZ 2023 4 [facility] TERBINAFINE HCL 1% CREAM,TOP APPLY A THIN LAYER TOPICALL Y ONCE DAILY APPLY DAILY FOR 6 WEEKS THEN WEEKLY TO MAINTAIN . TOPICA L ACTIVE 07/24/2025 [id number] FELICITAS FINE D 2024 60 [facility] Allergies, Adverse Reactions, Alerts Combined list of allergies from Department of Defense and Veterans Affairs facilities. It does not include entries that were removed or entered in error. Substance Category Reaction Severity Reaction type Status Date Reported Comments Source VARDENAFIL Propensity to adverse reactions to drug (finding) Headache, Diarrhea active 7 [facility] Immunizations Combined list of available immunizations from the Department of Defense and Veterans Affairs facilities. Immunization Series Date Given Administered By Site Reaction Lot Number CVX Code Drug Jewel Flat Surfacer Status Comments Source INFLUENZA, UNSPECIFIED FORMULATION 2023 88 complet ed Completed Series, HISTORICA L INFORMATI ON - FROM PATIENT'S RECALL, [facility] INFLUENZA, UNSPECIFIED FORMULATION 2023 88 complet ed Completed Series, HISTORICA L INFORMATI ON - FROM OTHER REGISTRY, [facility] INFLUENZA, UNSPECIFIED FORMULATION 2021 88 complet ed HISTORICA L INFORMATI ON - SOURCE UNSPECIFI ED, [facility] COVID-19 (PFIZER), MRNA, LNP-S, PF, 30 MCG/0.3 ML DOSE 3 2020 208 complet ed [facility] INFLUENZA, UNSPECIFIED FORMULATION 2020 88 [facility] COVID-19 (MODERNA), MRNA, LNP-S, PF, 100 MCG/0.5 ML DOSE 2 2020 207 complet ed MOD; [id number]; [facility] COVID-19 (MODERNA), MRNA, LNP-S, PF, 100 MCG/0.5 ML DOSE 1 2020 207 complet ed MOD; [id number]; 1 [facility] [...] Reference Range Date Interpretation Specimen Comments Source CYSTATIN C CREATININ E EGFR PANEL ([facility]) GLOMERULAR FILTRATION RATE/1.73 SQ M.PREDICTE D [VOLUME RATE/AREA] IN SERUM, PLASMA OR BLOOD BY CREATININE AND CYSTATIN C-BASED FORMULA (CKD-EPI 2020) 45 mL/min 60 08/18 L Specimen Type: SERUM No comment entered. Ordering Provider: EBONY STEVENS Report Released Date/Time: Jul 30, 2024 10:34 AM Reporting Lab: [facility] [address] [address] Performing Lab: [facility] [place] [facility] [address] [address] [facility] CYSTATIN C CREATININ E EGFR PANEL ([facility]) CREATININE [MASS/VOLU ME] IN SERUM OR PLASMA 1.26 mg/dL 0.5 - 1.5 08/18 Specimen Type: SERUM No comment entered. Ordering Provider: EBONY STEVENS Report Released Date/Time: Jul 30, 2024 10:34 AM Reporting Lab: [facility] [place] [facility] [address] [address] Performing Lab: [facility] [place] [facility] [address] [address] [place] [facility] CYSTATIN C CREATININ E EGFR PANEL ([facility]) CYSTATIN C [MASS/VOLU ME] IN SERUM OR PLASMA 1.79 mg/L 0.51 - 1.05 08/18 H Specimen Type: SERUM No comment entered. Ordering Provider: EBONY STEVENS Report Released Date/Time: Jul 30, 2024 10:34 AM Reporting Lab: [facility] [place] [facility] [address] [address] Performing Lab: [facility] [place] [address] [address] [place] [facility] ALBUMIN ALBUMIN [MASS/VOLU ME] IN SERUM OR PLASMA BY BROMOCRESO L PURPLE (BCP) DYE BINDING METHOD 4.4 g/dL 3.2 - 4.6 08/18 Specimen Type: SERUM No comment entered. Ordering Provider: EBONY STEVENS Report Released Date/Time: Feb 26, 2024 09:10 AM Reporting Lab: [facility] [place] [facility] [address] [address] Performing Lab: [facility] [place] [facility] [address] [address] [facility] MICROALBU MIN CREATININ E RATIO PANEL MICROALBUM IN/CREATIN INE [MASS RATIO] IN URINE 152.9 mg/g 0 - 29.9 08/18 H Specimen Type: URINE No comment entered. Ordering Provider: EBONY STEVENS Report Released Date/Time: Feb 26, 2024 09:10 AM Reporting Lab: [facility] [place] [facility] [address] [address] Performing Lab: [facility] [place] [facility] [address] [address] [facility] MICROALBU MIN CREATININ E RATIO PANEL MICROALBUM IN [MASS/VOLU ME] IN URINE BY DETECTION LIMIT <= 1.0 MG/L 10.4 mg/dL 08/18 Specimen Type: URINE No comment entered. Ordering Provider: EBONY STEVENS Report Released Date/Time: Feb 26, 2024 09:10 AM Reporting Lab: [facility] [place] [address] [address] Performing Lab: [facility] [place] [address] [address] [facility] MICROALBU MIN CREATININ E RATIO PANEL CREATININE [MASS/VOLU ME] IN URINE 68.03 mg/dL 63 - 166 08/18 Specimen Type: URINE No comment entered. Ordering Provider: EBONY STEVENS Report Released Date/Time: Feb 26, 2024 09:10 AM Reporting Lab: [facility] [place] [address] [address] Performing Lab: [facility] [place] [address] [address] [facility] LIPID PANEL, NON FASTING CHOLESTERO L [MASS/VOLU ME] IN SERUM OR PLASMA 112 mg/dL 08/18 Specimen Type: SERUM No comment entered. Ordering Provider: EBONY STEVENS Report Released Date/Time: Feb 26, 2024 09:10 AM Reporting Lab: [facility] [place] [address] [address] Performing Lab: [facility] [place] [facility] [address] [address] [facility] LIPID PANEL, NON FASTING TRIGLYCERI DE [MASS/VOLU ME] IN SERUM OR PLASMA 281 mg/dL 0 - 150 08/18 H Specimen Type: SERUM No comment entered. Ordering Provider: EBONY STEVENS Report Released Date/Time: Feb 26, 2024 09:10 AM Reporting Lab: [place] [facility] [place] [facility] [address] [address] Performing Lab: [place] [facility] [address] [address] [facility] LIPID PANEL, NON FASTING CHOLESTERO L IN LDL [MASS/VOLU ME] IN SERUM OR PLASMA BY CALCULAABDIRAHMANO N 25 mg/dL 0 - 129 08/18 Specimen Type: SERUM No comment entered. Ordering Provider: EBONY STEVENS Report Released Date/Time: Feb 26, 2024 09:10 AM Reporting Lab: [facility] [place] [facility] [address] [address] Performing Lab: [place] [facility] [address] [address] [facility] LIPID PANEL, NON FASTING CHOLESTERO L.TOTAL/CH OLESTEROL IN HDL [MASS RATIO] IN SERUM OR PLASMA 3.6 08/18 Specimen Type: SERUM No comment entered. Ordering Provider: EBONY STEVENS Report Released Date/Time: Feb 26, 2024 09:10 AM Reporting Lab: [facility] [place] [facility] [address] [address] Performing Lab: [place] [facility] [address] [address] [facility] LIPID PANEL, NON FASTING CHOLESTERO L IN HDL [MASS/VOLU ME] IN SERUM OR PLASMA 31 mg/dL 40 08/18 L Specimen Type: SERUM No comment entered. Ordering Provider: EBONY STEVENS Report Released Date/Time: Feb 26, 2024 09:10 AM Reporting Lab: [place] [facility] [place] [facility] [address] [address] Performing Lab: [place] [facility] [place] [facility] [address] [address] [place] [facility] [place] [facility] FERRITIN FERRITIN [MASS/VOLU ME] IN SERUM OR PLASMA BY IMMUNOASSA Y 64.2 ng/mL 21.8 - 274.7 08/18 Specimen Type: SERUM No comment entered. Ordering Provider: EBONY STEVENS Report Released Date/Time: Feb 26, 2024 09:10 AM Reporting Lab: [place] [facility] [place] [facility] [address] [address] Performing Lab: [place] [facility] [place] [facility] [address] [address] [facility] BASIC METABOLIC PANEL (non-fast ing) UREA NITROGEN [MASS/VOLU ME] IN SERUM OR PLASMA 11 mg/dL 8 - 26 08/18 Specimen Type: SERUM No comment entered. Ordering Provider: EBONY STEVENS Report Released Date/Time: Feb 26, 2024 09:10 AM Reporting Lab: [place] [facility] [place] [facility] [address] [address] Performing Lab: [place] [facility] [place] [facility] [address] [address] [facility] [place] [facility] BASIC METABOLIC PANEL (non-fast ing) GLUCOSE [MASS/VOLU ME] IN SERUM OR PLASMA 97 mg/dL 65 - 100 08/18 Specimen Type: SERUM No comment entered. Ordering Provider: EBONY STEVENS Report Released Date/Time: Feb 26, 2024 09:10 AM Reporting Lab: [place] [facility] [place] [facility] [address] [address] Performing Lab: [facility] [place] [facility] [address] [address] [facility] [place] [facility] BASIC METABOLIC PANEL (non-fast ing) SODIUM [MOLES/VOL UME] IN SERUM OR PLASMA 144 mmol/L 136 - 145 08/18 Specimen Type: SERUM No comment entered. Ordering Provider: EBONY STEVENS Report Released Date/Time: Feb 26, 2024 09:10 AM Reporting Lab: [place] [facility] [place] [facility] [address] [address] Performing Lab: [place] [facility] [address] [address] [facility] BASIC METABOLIC PANEL (non-fast ing) POTASSIUM [MOLES/VOL UME] IN SERUM OR PLASMA 4.1 mmol/L 3.5 - 5.1 08/18 Specimen Type: SERUM No comment entered. Ordering Provider: EBONY STEVENS Report Released Date/Time: Feb 26, 2024 09:10 AM Reporting Lab: [place] [facility] [address] [address] Performing Lab: [place] [facility] [address] [address] [facility] BASIC METABOLIC PANEL (non-fast ing) CHLORIDE [MOLES/VOL UME] IN SERUM OR PLASMA 106 mmol/L 98 - 107 08/18 Specimen Type: SERUM No comment entered. Ordering Provider: EBONY STEVENS Report Released Date/Time: Feb 26, 2024 09:10 AM Reporting Lab: [facility] [address] [address] Performing Lab: [place] [facility] [address] [address] [facility] BASIC METABOLIC PANEL (non-fast ing) CARBON DIOXIDE, TOTAL [MOLES/VOL UME] IN SERUM OR PLASMA 28 meq/L 23 - 31 08/18 Specimen Type: SERUM No comment entered. Ordering Provider: EBONY STEVENS Report Released Date/Time: Feb 26, 2024 09:10 AM Reporting Lab: [facility] [address] [address] Performing Lab: [place] [facility] [address] [address] [facility] BASIC METABOLIC PANEL (non-fast ing) CALCIUM [MASS/VOLU ME] IN SERUM OR PLASMA 8.8 mg/dL 8.8 - 10 08/18 Specimen Type: SERUM No comment entered. Ordering Provider: EBONY STEVENS Report Released Date/Time: Feb 26, 2024 09:10 AM Reporting Lab: [facility] [address] Performing Lab: [facility] [address] [address] [facility] BASIC METABOLIC PANEL (non-fast ing) CREATININE [MASS/VOLU ME] IN SERUM OR PLASMA 1.32 mg/dL 0.72 - 1.25 08/18 H Specimen Type: SERUM No comment entered. Ordering Provider: EBONY STEVENS Report Released Date/Time: Feb 26, 2024 09:10 AM Reporting Lab: [facility] [address] Performing Lab: [facility] [address] [address] [facility] BASIC METABOLIC PANEL (non-fast ing) GLOMERULAR FILTRATION RATE/1.73 SQ M.PREDICTE D [VOLUME RATE/AREA] IN SERUM, PLASMA OR BLOOD BY CREATININE -BASED FORMULA (CKD-EPI 2020) 56 mL/min 60 08/18 L Specimen Type: SERUM No comment entered. Ordering Provider: EBONY STEVENS Report Released Date/Time: Feb 26, 2024 09:10 AM Reporting Lab: [facility] [address] [address] Performing Lab: [facility] [address] [address] [facility] IRON & TIBC PANEL IRON BINDING CAPACITY [MASS/VOLU ME] IN SERUM OR PLASMA 286 ug/dL 204 - 475 08/18 Specimen Type: SERUM No comment entered. Ordering Provider: EBONY STEVENS Report Released Date/Time: Feb 26, 2024 09:10 AM Reporting Lab: [facility] [place] [facility] [address] [address] Performing Lab: [facility] [place] [facility] [address] [address] [facility] [place] [facility] IRON & TIBC PANEL IRON [MASS/VOLU ME] IN SERUM OR PLASMA 79 ug/dL 65 - 175 08/18 Specimen Type: SERUM No comment entered. Ordering Provider: EBONY STEVENS Report Released Date/Time: Feb 26, 2024 09:10 AM Reporting Lab: [facility] [address] [facility] [facility] [address] Performing Lab: [facility] [address] [facility] [facility] [address] [facility] IRON & TIBC PANEL IRON/IRON BINDING CAPACITY.T OTAL [MASS RATIO] IN SERUM OR PLASMA 27.6 15 - 45 08/18 Specimen Type: SERUM No comment entered. Ordering Provider: EBONY STEVENS Report Released Date/Time: Feb 26, 2024 09:10 AM Reporting Lab: [facility] [address] [facility] [phone] Performing Lab[facility] [facility] [address] [facility] [facility] [address] [facility] IRON & TIBC PANEL TRANSFERRI N [MASS/VOLU ME] IN SERUM OR PLASMA 217 mg/dL 180 - 382 08/18 Specimen Type: SERUM No comment entered. Ordering Provider: EBONY STEVENS Report Released Date/Time: Feb 26, 2024 09:10 AM Reporting Lab: [facility] [address] [facility] [facility] [address] Performing Lab: [facility] [address] [facility] [facility] [address] [facility] CBC LEUKOCYTES [#/VOLUME] IN BLOOD BY AUTOMATED COUNT 9.00 10*3/uL 4.50 - 11.00 08/18 Specimen Type: BLOOD No comment entered. Ordering Provider: EBONY STEVENS Report Released Date/Time: Feb 26, 2024 09:10 AM Reporting Lab: [facility] [address] [facility] [facility] [address] Performing Lab: [facility] [facility] [address] [address] [facility] CBC ERYTHROCYT ES [#/VOLUME] IN BLOOD BY AUTOMATED COUNT 4.27 10*6/uL 4.23 - 5.66 08/18 Specimen Type: BLOOD No comment entered. Ordering Provider: EBONY STEVENS Report Released Date/Time: Feb 26, 2024 09:10 AM Reporting Lab: [facility] [address] [address] Performing Lab: [facility] [address] [address] [facility] CBC HEMOGLOBIN [MASS/VOLU ME] IN BLOOD 12.8 g/dL 12.8 - 17 08/18 Specimen Type: BLOOD No comment entered. Ordering Provider: EBONY STEVENS Report Released Date/Time: Feb 26, 2024 09:10 AM Reporting Lab: [facility] [address] [address] Performing Lab: [facility] [address] [address] [facility] CBC HEMATOCRIT [VOLUME FRACTION] OF BLOOD BY AUTOMATED COUNT 39.6 39.2 - 50.4 08/18 Specimen Type: BLOOD No comment entered. Ordering Provider: EBONY STEVENS Report Released Date/Time: Feb 26, 2024 09:10 AM Reporting Lab: [facility] [address] [address] Performing Lab: [facility] [address] [address] [facility] CBC MCV [ENTITIC VOLUME] BY AUTOMATED COUNT 92.7 fL 82 - 99 08/18 Specimen Type: BLOOD No comment entered. Ordering Provider: EBONY STEVENS Report Released Date/Time: Feb 26, 2024 09:10 AM Reporting Lab: [facility] [address] [address] Performing Lab: [facility] [address] [address] [facility] CBC MCHC [MASS/VOLU ME] BY AUTOMATED COUNT 32.3 g/dL 30.8 - 35.1 08/18 Specimen Type: BLOOD No comment entered. Ordering Provider: EBONY STEVENS Report Released Date/Time: Feb 26, 2024 09:10 AM Reporting Lab: [facility] [address] [address] Performing Lab: [facility] [address] [address] [facility] CBC PLATELETS [#/VOLUME] IN BLOOD BY AUTOMATED COUNT 185 10*3/uL 140 - 360 08/18 Specimen Type: BLOOD No comment entered. Ordering Provider: EBONY STEVENS Report Released Date/Time: Feb 26, 2024 09:10 AM Reporting Lab: [facility] [address] [address] Performing Lab: [facility] [address] [address] [facility] CBC PLATELET MEAN VOLUME [ENTITIC VOLUME] IN BLOOD BY AUTOMATED COUNT 11.4 fL 9.2 - 12.4 08/18 Specimen Type: BLOOD No comment entered. Ordering Provider: EBONY STEVENS Report Released Date/Time: Feb 26, 2024 09:10 AM Reporting Lab: [facility] [address] [address] Performing Lab: [facility] [address] [address] [facility] CBC ERYTHROCYT E DISTRIBUTI ON WIDTH [RATIO] BY AUTOMATED COUNT 14.7 12.0 - 16.0 08/18 Specimen Type: BLOOD No comment entered. Ordering Provider: EBONY STEVENS Report Released Date/Time: Feb 26, 2024 09:10 AM Reporting Lab: [address] [address] Performing Lab: [address] [address] [facility] CBC MCH [ENTITIC MASS] BY AUTOMATED COUNT 30.0 pg 26.2 - 32.6 08/18 Specimen Type: BLOOD No comment entered. Ordering Provider: EBONY STEVENS Report Released Date/Time: Feb 26, 2024 09:10 AM Reporting Lab: [address] [address] Performing Lab: [address] [address] [facility] HEMOGLOBI N A1C PANEL HEMOGLOBIN A1C/HEMOGL OBIN.TOTAL [...] Oct 29, 2023 10:41 AM Reporting Lab: [address] [address] Performing Lab: [address] [address] [facility] LIPID PANEL FASTING CHOLESTERO L [MASS/VOLU ME] IN SERUM OR PLASMA 124 mg/dL 04/23 Specimen Type: SERUM No comment entered. Ordering Provider: LEAH HINSON Report Released Date/Time: Oct 29, 2023 10:41 AM Reporting Lab: [facility] [address] [address] Performing Lab: [facility] [address] [address] [facility] LIPID PANEL FASTING TRIGLYCERI DE [MASS/VOLU ME] IN SERUM OR PLASMA 307 mg/dL 0 - 150 04/23 H Specimen Type: SERUM No comment entered. Ordering Provider: LEAH HINSON Report Released Date/Time: Oct 29, 2023 10:41 AM Reporting Lab: [facility] [address] [address] Performing Lab: [facility] [address] [address] [place] [facility] LIPID PANEL FASTING CHOLESTERO L IN LDL [MASS/VOLU ME] IN SERUM OR PLASMA BY CALCULATIO N Reflex to dLDLmg/ dL 0 - 129 04/23 Specimen Type: SERUM No comment entered. Ordering Provider: LEAH HINSON Report Released Date/Time: Oct 29, 2023 10:41 AM Reporting Lab: [facility] [address] [address] Performing Lab: [facility] [address] [address] [facility] LIPID PANEL FASTING CHOLESTERO L.TOTAL/CH OLESTEROL IN HDL [MASS RATIO] IN SERUM OR PLASMA 3.8 04/23 Specimen Type: SERUM No comment entered. Ordering Provider: LEAH HINSON Report Released Date/Time: Oct 29, 2023 10:41 AM Reporting Lab: [facility] [address] [address] Performing Lab: [facility] [address] [address] [facility] LIPID PANEL FASTING CHOLESTERO L IN HDL [MASS/VOLU ME] IN SERUM OR PLASMA 33 mg/dL 40 - 60 04/23 L Specimen Type: SERUM No comment entered. Ordering Provider: LEAH HINSON Report Released Date/Time: Oct 29, 2023 10:41 AM Reporting Lab: [facility] [address] [address] Performing Lab: [facility] [address] [address] [facility] LIPID PANEL FASTING CHOLESTERO L IN LDL [MASS/VOLU ME] IN SERUM OR PLASMA BY DIRECT ASSAY 51 mg/dL 04/23 Specimen Type: SERUM No comment entered. Ordering Provider: LEAH HINSON Report Released Date/Time: Oct 29, 2023 10:41 AM Reporting Lab: [facility] [address] [address] Performing Lab: [facility] [address] [address] [facility] Vital Signs Combined list of inpatient and outpatient Vital Signs from Department of Defense and Veterans Affairs, ranging from 12 months to all on record, depending upon the facility. Vital Sign Value Date Comments Source SYSTOLIC BLOOD PRESSURE 148 08/28/19 25 10:21:42 [facility] DIASTOLIC BLOOD PRESSURE 72 025 10:21:42 [facility] PULSE OXIMETRY 97 % 08/27/2024 10:21:42 [facility] WEIGHT 171 08/27/2024 10:21:42 [facility] BMI 25 kg/m2 08/27/2024 10:21:42 [facility] PAIN 0 08/27/2024 10:21:42 [facility] TEMPERATURE 97.2 08/27/2024 10:21:42 [facility] PULSE 86 08/27/2024 10:21:42 [facility] RESPIRATION 16 08/27/2024 10:21:42 [facility] SYSTOLIC BLOOD PRESSURE 137 04/25/19 25 10:08:59 [...] 10/29/2023 09:59:00 [facility] Encounters Combined [...] Source [facility] OFFICE O/P EST MOD 30 MIN [id number] Diagnos is: ICD-10- CM N18.31 Chronic kidney disease , stage 3a RODNEYSridhar REESE Azar 04/17 [facility] En[facility] [id number] 04/18 [facility] En[facility] [id number] 04/23 [facility] OFFICE O/P EST MOD 30 MIN [id number] Diagnos is: ICD-10- CM E11.9 Type 2 diabete s mellitu s without complic ations CLEMENTINE GAGNON JAWED 04/23 [facility] En[facility] [id number] 06/27 [facility] En[facility] [id number] 07/11 [facility] En[facility] [id number] 07/29 [facility] OFFICE O/P EST LOW 20 MIN [id number] Diagnos is: ICD-10- CM E11.51 Type 2 diabete 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 th w/o GIORGI Connelly 08/01 [facility] En[facility] [id number] 08/06 [facility] En[facility] [id number] GIORGI FINE RLBOBY D 08/09 [facility] OFFICE O/P EST MOD 30 MIN [id number] Sridhar STEVENS A 08/14 [facility] DIABETIC CUSTOM MOLDED SHOE [id number] Diagnos is: ICD-10- CM E11.8 Type 2 diabete s mellitu s with unspeci fied complic ations MARESFRIEDA TT TOBY 08/14 [facility] Outpatient Encounter [id number] Sridhar STEVENS A 08/14 [facility] Outpatient Encounter [id number] GIORGI FINE D 08/26 [facility] DIABETIC CUSTOM MOLDED SHOE [id number] Diagnos is: ICD-10- CM E11.8 Type 2 diabete s mellitu s with unspeci fied complic ations FRIEDA MARES TT TOBY 09/04 [facility] Outpatient Encounter [id number] 10/02 [facility] DETERMINE REFRACTIVE STATE [id number] Diagnos is: ICD-10- CM 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, right eye, with actv chrdl neovas GUILLEN,LACE Y J 10/08 [facility] CPTR OPHTH DX IMG POST SEGMT [id number] Diagnos is: ICD-10- CM H35.322 1 Exdtve age-rel mclr degn, left eye, with actv chrdl neovas PATIENCE GUILLEN 10/08 [facility] FIT SPECTACLES BIFOCAL [id number] Diagnos is: ICD-10- CM Z46.0 Encount er for fit/adj st of spectac les and contact lenses MINDYITZELJarod Burrell Karissa 10/08 [facility] En[facility] [id number] 1.10/10 [facility] En[facility] [id number] 1.10/16 [facility] En[facility] [id number] 1.10/18 [facility] En[facility] [id number] 10/20 [facility] OFFICE O/P EST MOD 30 MIN [id number] Diagnos is: ICD-10- CM D50.9 Iron deficie ncy anemia, unspeci fied FURCOLO,TI NA 10/28 [facility] En[facility] [id number] 1.10/28 [facility] Encounter [id number] 1.11/11 [facility] [id number] 11/28 [facility] Encounter [id number] 12/31 [facility] En[facility] [id number] 01/06 [facility] OFFICE O/P EST MOD 30 MIN [id number] Diagnos is: ICD-10- CM S92.325 A Nondisp fx of second metatar gentry bone, left foot, init GIORGI FINE RLBOBY D 01/10 [facility] OFFICE O/P EST LOW 20 MIN [id number] Diagnos is: ICD-10- CM S92.302 D Fx unsp metatar gentry bone(s) , l foot, subs for fx w routn gris FINE CHA RLBOBY D 01/30 [facility] OFFICE O/P EST MOD 30 MIN [id number] Diagnos is: ICD-10- CM N18.31 Chronic kidney disease , stage 3a Sridhar STEVENS 02/25 [facility] En[facility] [id number] 02/27 [facility] Encounter [id number] 03/18 [facility] En[facility] [id number]/28 [facility] [place] HEARING AID REPAIR/MOD IFYING [id number] Diagnos is: ICD-10- CM Z46.1 Encount er for fitting and adjustm ent of hearing aid JOSE CHAU I 04/04 [place] [facility] Outpatient Encounter [id number] [facility] Outpatient Encounter [id number] 1.04/22 [facility] OFFICE O/P EST MOD 30 MIN [id number] 1. Diagnos is: ICD-10- CM D50.9 Iron deficie ncy anemia, unspeci fied FURCOLO,TI NA 04/24 [facility] [place] SELF CARE MNGMENT TRAINING [id number] Diagnos is: ICD-10- CM M54.2 Cervica lgia LORY MOYA 05/05 [place] [facility] OFFICE O/P EST LOW 20 MIN [id number] Diagnos is: ICD-10- CM H35.313 2 Nexdtve age-rel ated mclr degn, bilater al, interme d dry stage GUILLEN,LACE Y J 05/06 [facility] Outpatient Encounter [id number] [facility] [place] THERAPEUTI C EXERCISES [id number] 1BY. 59 Diagnos is: ICD-10- CM M54.2 Cervica lgia GRIFFIN,LORY HAEL 03/28 /2025 [place] THERAPEUT[place] EXERCISES [id number] 1BY. 92 Diagnos is: ICD-10- CM M54.2 LORY Navarro HA 05/23 [place] [facility] RPR&REFITG SPECT XCP APHAKIA [id number] Diagnos is: ICD-10- CM Z46.0 Encount er for fit/adj st of spectac les and contact lenses EULA VILLALOBOS 05/23 [facility] Outpatient Encounter [id number] 05/23 [facility] [place] THERAPEUTI C EXERCISES [id number] 1BY. 44 Diagnos is: ICD-10- CM M54.2 Alex MOYA,LORY [facility] 05/30 [place] [facility] Outpatient Encounter [id number] [facility] SELF CARE MNGMENT TRAINING [id number] 1BY. 83 Diagnos is: ICD-10- CM M54.2 LORY Navarro [facility] 06/06 [place] [facility] OFFICE O/P EST LOW 20 MIN [id number] Diagnos is: ICD-10- CM B35.3 Tinea pedis GIORGI FINE RLES D 07/23 [facility] Outpatient Encounter [id number] 07/25 [facility] Outpatient Encounter [id number] 07/28 [facility] [place] [place] [facility] Outpatient Encounter [id number] 07/29 [place] [facility] [place] [facility] [place] [facility] OFFICE O/P EST MOD 30 MIN [id number] Diagnos is: ICD-10- CM N18.31 Chronic kidney disease , stage 3a Sridhar STEVENS 08/27 [place] [facility] [place] [facility] [place] [facility] Outpatient Encounter [id number] 08/28 [place] [facility] [place] [facility] Social History Combined list of available smoking, tobacco, and other social history from Department of Defense and Veterans Affairs facilities. Social History Type Response Date Comment Source Tobacco smoking status [facility]-TOBACCO USE FORMER CIGARETTES 04/24/2024 [place] [facility] [place] [facility] History of tobacco use [place]-TO[place]AC[place] NEVER USED OTHER TYPE 04/24/2024 [place] [facility] [place] [facility] History of tobacco use [place]-TOBACCO FORMER USER 04/24/2023 [place] [facility] [place] [facility] History of tobacco use [place]-TOBACCO FORMER USER 03/22/2022 [place] [facility] [place] [facility] History of tobacco use [place]-TOBACCO NEVER USED 10/21/2020 [place] [facility] [place] [facility] History of tobacco use [place]-TOBACCO FORMER USER 11/04/2019 [place] [facility] [place] [facility] History of tobacco use [place]-TOBACCO QUIT 15 YRS OR MORE 05/06/2018 [place] [facility] [place] [facility] History of tobacco use QUIT TOBACCO USE > 7 YEARS AGO 11/05/2017 [place] [facility] [place] [facility] History of tobacco use QUIT TOBACCO USE > 7 YEARS AGO 06/28/2016 [place] [facility] [place] [facility] History of tobacco use LIFETIME NON-TOBACCO USER 03/15/2015 quit cigs. 1999 [place] [facility] [place] [facility] History of tobacco use HISTORY OF SMOKING 11/14/2004 [place] [facility] History of tobacco use HISTORY OF SMOKING 05/18/2003 quit August 1998 [facility] History of tobacco use HISTORY OF SMOKING 06/09/2002 quit 99. [facility] History of tobacco use HISTORY OF SMOKING 06/10/2001 quit 1998 [facility] History of tobacco use HISTORY OF SMOKING 06/08/2000 quit 2yrs ago [facility] Plan of Care List of future care activities from Department of [facility] Affairs facilities. Additional future care activities may be listed in the Assessment and Plan section. Date/Time Care Activity Care Activity Detail Facili ty 10/27/2024 AMBULATORY - MEDICINE AMBULATORY - MEDICI [facility]
[2024-10-15 08:25] VITALS: BP 136/62; PULSE 91; TEMP 36.8; O2SAT 97; BMI 24.8
--- NOTE | 2024-10-15 08:25 | MHC.OFFWIV ---
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 - The issue started gradually and was not associated with any recent trauma or fall. - The patient initially thought it was a pimple, but it has persisted and is slightly raised. - There is no significant pain unless pressure is applied directly to the area. - The patient has a history of consuming alcohol, but currently limits intake to one beer per week. - He denies trauma or fall. He denies shoulder pain or neck pain. - He was told by his to come and get it seen. Physical Exam General: Cooperative, healthy appearing, comfortable, no acute distress and well developed Orientation: Patient oriented x3 Respiratory: Normal respiratory effort and able to speak in complete sentences. Clear to auscultation bilaterally Cardiovascular: Regular rate and rhythm. Normal S1 and S2 Skin: No rashes or lesions noted. Neuro: Sensation is intact. Extremities: Normal to inspection. Area of swelling noted at the sternal notch on the right clavicle. No TTP of the clavicle or AC joint. FROM of the shoulders bilaterally. No click noted. FROM of the elbows and wrists. Strength is 5/5 on the UE bilaterally. Patient was informed and verbally consented to the use of an ambient scribe for clinic note documentation during this visit. 1. Raised Area On The Right Clavicle - Plan to obtain an X-ray to evaluate the raised area on the right clavicle. FORMERLY [facility], [facility]1983 Medical History (Updated 07/12/20 @ 13:29 by Brando Agarwal MD) COPD (chronic obstructive pulmonary disease) Pulmonary emphysema Review of Systems Const All systems reviewed & are unremarkable except as noted in HPI and below Physical Exam Vital Signs: Last Vital Signs Temp 98.2 F 10/15/24 08:25 Pulse 91 10/15/24 08:25 BP 136/62 10/15/24 08:25 Pulse Ox 97 10/15/24 08:25 Oxygen Delivery Method Room Air 10/15/24 08:25 BMI result Body Mass Index 24.8 Results Reviewed Results Reviewed: Reviewed the x-ray in the office today Assessment & Plan Assessment & Plan (1) Deformity, clavicle: Code(s): M95.8 - Other specified acquired deformities of musculoskeletal system Plan Most likely calcification vs ?fracture vs mass plan - will order an x-ray in the office today - activities as tolerated - can refer to ortho if needed - will call him with results - follow up with PCP Orders: Orders XR clavicle RT Today M89.8X1 - Other specified disorders of bone, shoulder Coding Level of Care Code Est Pt Level 4 (73043) Diagnoses Deformity, clavicle M95.8
--- OUTSIDE RECORDS SUMMARY | 2024-10-15 08:29 | XMS_ITS | Encounter Summary ---
Author Organization [facility] Address [address] [place] [phone] Phone Care Team Providers Care Portfolio Consultant Name Role Phone Lindy Buckner MD Primary Care Provider Encounter Details Date Type Department Care Team (Late st Contact Info) Description 06/09/2022 Procedure Pass [facility] Endoscopy Admitting Dept Virtual Department [address] [place] [id number] Social History Tobacco Use Types Packs/Day Years Used Date Smoking Tobacco: Former Cigarettes Q uit: 1998 Smokeless Tobacco: Never Alcohol Use Standard Drinks/Week Comments Yes 7 (1 standard drink = 0.6 oz pur e alcohol) Sex and Gender Information Value Date Recorded Sex Assigned at Not on file Legal Sex Male 10:05 PM EDT Gender Identity Not on file Sexual Orientation Not on file documented as of this encounter Plan of Treatment Not on file documented as of this encounter Visit Diagnoses Not on filedocumented in this encounter Care Teams Portfolio Consultant Relationship Specialty Start Date End Date Lindy Buckner MD [address] [place] [address] PCP - General Internal Medicine 06/09/22 documented as of this encounter Additional Source Comments The information contained in this document represents components of the legal health record. It is not the complete legal health record.[facility]
--- OUTSIDE RECORDS SUMMARY | 2024-10-15 08:29 | XMS_ITS | Encounter Summary ---
Author Organization [facility] Address [address] [facility] [address] [place] [id number] Phone Care Team Providers Care Electronics Maintenance Technician Name Role Phone Lindy Buckner MD Primary Care Provider Encounter Details Date Type Department Care Team (Late st Contact Info) Description 03/02/2023 Procedure Pass [facility] Endoscopy Admitting Dept Virtual Department [address] [place] [address] Social History Tobacco Use Types Packs/Day Years Used Date Smoking Tobacco: Former Cigarettes Q uit: 1998 Smokeless Tobacco: Never Alcohol Use Standard Drinks/Week Comments Yes 2 (1 standard drink = 0.6 oz pur e alcohol) Education Answer Date Recorded Are you interested in more education? Not on diogo e 06/16/2022 Are you concerned about learning? Not on file 06/16/2022 No 06/16/2022 No 06/16/2022 Digital Access Answer Date Recorded No 07/15/2022 No 07/15/2022 Reliable internet access at home? Not on file 07/15/2022 Device with a working camera? Not on file Sex and Gender Information Value Date Recorded Sex Assigned at Not on file Legal Sex Male 10:05 PM EDT Gender Identity Not on file Sexual Orientation Not on file documented as of this encounter Plan of Treatment Not on file documented as of this encounter Visit Diagnoses Not on filedocumented in this encounter Care Teams Electronics Maintenance Technician Relationship Specialty Start Date End Date Lindy Buckner MD [address] [place] [address] PCP - General Internal Medicine 06/09/22 documented as of this encounter Additional Source Comments The information contained in this document represents components of the legal health record. It is not the complete legal health record.[facility]
--- OUTSIDE RECORDS SUMMARY | 2024-10-15 08:29 | XMS_ITS | Clinical Summary ---
Author Organization [facility] Address [address] [facility] [address] [place] [id number] Phone Care Team Providers Care [employer] Reading Teacher Name Role Phone Lindy Buckner MD Primary Care Provider Allergies Active Allergy Reactions Criticality Noted Date Comments Vardenafil Diarrhea,Headaches Low 07/06/2006 Medications amLODIPine (NORVASC) 10 MG tablet Take 10 mg by mouth daily. 04/02/2022 Active atorvastatin (LIPITOR) 40 MG tablet 06/05/2022 Active carvedilol (COREG) 25 MG tablet Take 25 mg by mouth 2 (two) times a day with meals. 06/05/2022 Active magnesium oxide (MAG-OX) 400 mg (241.3 mg elemental) tablet TAKE 2 TABLETS BY MOUTH ONCE DAILY WITH FOOD FOR 30 DAYS 05/18/2022 Active STIOLTO RESPIMAT 2.5-2.5 mcg/actuation Mist INHALE 2 PUFFS ONCE DAILY 90 05/21/2022 Active traMADoL (ULTRAM) 50 mg tablet Take 50 mg by mouth every 8 (eight) hours as needed. 05/29/2022 Active multivitamin-mi nerals-lutein (CENTRUM SILVER) Tab Take 1 tablet by mouth daily. Active iron, ferronyl,-vitam in C 65 mg iron- 125 mg TbEC Take 1 tablet by mouth daily. Active aspirin 81 MG EC tablet Take 81 mg by mouth. 06/15/2021 Active beclomethasone (QVAR REDIHALER) 80 mcg/actuation inhaler TAKE 1 PUFF BY MOUTH TWICE A DAY 03/03/2021 Active ipratropium-alb uteroL (DUONEB) 0.5-3 mg (2.5 mg base)/3 mL nebulizer solution 03/03/2021 Active pantoprazole (PROTONIX) 40 MG tablet Take 40 mg by mouth 2 (two) times a day. Active amoxicillin (AMOXIL) 500 MG capsule TAKE 4 CAPSULES 1 HR PRIOR DENTAL APPT 03/15/2023 Active JARDIANCE 10 mg tablet 04/07/2023 Active tadalafiL (CIALIS, ADCIRCA) 20 MG tablet Take 20 mg by mouth daily as needed. 07/18/2022 Active Active Problems No known active problems Social History Tobacco Use Types Packs/Day Years [...] with a working camera? Not on file Intimate Partner Violence Answer Date R ecorded Are you denied basic needs s uch as food, clothing, or medical care? No 04/13/2023 In the past 12 months have y ou been in a relationship with a person who hurts, threatens, or tries to control you? No 04/13/2023 Are you denied basic needs s uch as food, clothing, or medical care? No 04/13/2023 In the past 12 months have y ou been in a relationship with a person who hurts, threatens, or tries to control you? No 04/13/2023 Sex and Gender Information Value Date Recorded Sex Assigned at Not on file Legal Sex Male 10:05 PM EDT Gender Identity Not on file Sexual Orientation Not on file Last Filed Vital Signs Vital Sign Reading Time Taken Comments Blood Pressure 128/55 04/13/2023 9:30 AM EST Pulse 88 04/13/2023 9:30 AM EST Temperature 36.5 C (97.7 F) 04/13/2023 8:23 AM EST Respiratory Rate 17 04/13/2023 9:25 AM EST Oxygen Saturation 95% 04/13/2023 9:30 AM EST Inhaled Oxygen Concentration - - Weight 74.4 kg (164 lb) 02/28/2023 3:27 PM EST Height 177.8 cm (5' 10 ) 02/28/2023 3:27 PM EST Body Mass Index 23.53 02/28/2023 3:27 PM EST Plan of Treatment Health Maintenance Due Date Last Done Comments LIPID PANEL 1948 DEPRESSION SCREENING 1960 SMOKING Hx and SMOKELESS TOBACCO SCREENING 1961 HEPATITIS C SCREENING 1966 Adult Td,Tdap Booster 12/06/2016 12/06/2006, 007 RSV VACCINE (1 - 1-dose 75+ series) 2023 COVID-19 VACCINE (2 - 2023- season) 2023 01/10/2021 PNEUMOCOCCAL VACCINES (50+ years) Completed 05/06/2018, 10/11/2015, 08/03/2014, Additional history exists ZOSTER VACCINES Completed 02/25/2020, 10/20, 11/04/2012 HEPATITIS A VACCINES Aged Out No long er eligible based on patient's age to complete this topic HIB VACCINES Aged Out No longer eligi ble based on patient's age to complete this topic MENINGOCOCCAL VACCINES (ACWY) Aged Out No longer eligible based on patient's age to complete this topic MENINGOCOCCAL VACCINES (B) Aged Out N o longer eligible based on patient's age to complete this topic Medical Devices Implanted Type Area Knowledge Manager Device Identifier Shelf Expiration Date Model / Serial / Lot Left Knee Insurance [facility] Care Teams [employer] Reading Teacher Relationship Specialty Start Date End Date Lindy Buckner MD [facility] [place] [address] PCP - General Internal Medicine 06/09/22 Additional Source Comments The information contained in this document represents components of the legal health record. It is not the complete legal health record.[facility]
--- OUTSIDE RECORDS SUMMARY | 2024-10-15 08:29 | XMS_ITS | Encounter Summary ---
Author Organization [facility] Address [address] [facility] [address] [place] [address] Phone Care Team Providers Care Fire Sprinkler Installer Name Role Phone Lindy Buckner MD Primary Care Provider [phone] Encounter Details Date Type Department Care Team (Late st Contact Info) Description 08/10/2022 Procedure Pass [facility] Endoscopy Admitting Dept Virtual Department [address] [place] [address] Social History Tobacco Use Types Packs/Day Years [...] on filedocumented in this encounter Care Teams Fire Sprinkler Installer Relationship Specialty Start Date End Date Lindy Buckner MD [address] [place] [address] PCP - General Internal Medicine 06/09/22 documented as of this encounter Additional Source Comments The information contained in this document represents components of the legal health record. It is not the complete legal health record.[facility]
--- OUTSIDE RECORDS SUMMARY | 2024-10-15 08:29 | XMS_ITS | Encounter Summary ---
Author Organization [facility] Address [address] [facility] [address] [place] [address] Phone Care Team Providers Care Weighmaster Lead Name Role Phone Lindy Buckner MD Primary Care Provider [phone] Encounter Details Date Type Department Care Team (Late st Contact Info) Description 04/13/2023 Procedure Pass [facility] Endoscopy Admitting Dept Virtual Department [address] [place] [address] Social History Tobacco Use Types Packs/Day Years [...] on filedocumented in this encounter Care Teams Weighmaster Lead Relationship Specialty Start Date End Date Lindy Buckner MD [address] [place] [address] PCP - General Internal Medicine 06/09/22 documented as of this encounter Additional Source Comments The information contained in this document represents components of the legal health record. It is not the complete legal health record.[facility]
== END 2024-10-15 09:45 | disposition home or self-care (01) ==
PROVIDERS: PCP Internal Medicine; Visit Provider Physician Assistant Medical
DX: M95.8 Other specified acquired deformities of musculoskeletal system (principal)

== ENCOUNTER 2024-10-15 08:12 | Outpatient (REF) | payer MEDICARE, OTHER, SELFPAY ==
--- OUTSIDE RECORDS SUMMARY | 2024-08-04 10:30 | XMS_ITS ---
Author Organization Kiko Coats MD Address [address] [place], [place] [phone] Care Team Providers Care Cage Fighter Name Role Phone Kiko Coats Primary Care Provider Allergies No Known Allergies REASON FOR VISIT [...] Problem Status W/U Status Risk Notes Problem Esophageal ulcer without bleeding (K22.10) Active confirmed Vital Signs Blood pressure systolic 140 mm Hg 08/05/19 25 Blood pressure diastolic 50 mm Hg 025 Height 70 in 08/04/2024 Weight 176 lbs 08/04/2024 BMI 25.25 kg/m2 08/04/2024 weight is down 2 pounds [facility] 05-09-24 Encounters Encounter Location Date Provider Diagnosis Kiko Coats MD [address] [place] [address] Drive [address] [place], [place] [phone] 08/04/2024 Kiko Coats Esophageal ulcer without bleeding [...] contrlolled Next Appt Details Provider Name:Kiko chatman, 11/10/2024 08:00:00 AM, [address] [place] [address], [address], [place], [place], [phone], Provider Name:Kiko chatman, 11/17/2024 10:30:00 AM, [address], [address], [place], [place], [phone], Progress Notes * Mikal DENNYDOB: [birth year] (74 yo M)Acc No.[id number]:08/04/2024 Patient: Mikal VITALE Provider: La Coats MD :1950 A ge:74 Y S ex:Male Date:08/04/2024 Address:[address], [place] Subjective: * Chief Complaints: * P H/TcM [...] 08/04/2024 Generated for Maryam fontaine/Pamela/Tishitting on: 0 10/15/2024 09:19 AM EDT History and Physical Notes * [...]
--- OUTSIDE RECORDS SUMMARY | 2024-09-19 10:15 | XMS_ITS ---
Author Organization Kiko Coats MD Address [address] [place], [place] [phone] Care Team Providers Care Side Seam Machine Operator Name Role Phone Kiko Coats Primary Care Provider [phone] REASON FOR VISIT refill Medications Medication SIG [...] Date Provider Diagnosis Kiko Coats MD [address] [facility] [address] [place], [place] [phone] 09/19/2024 Kiko Coats Plan Of Treatment Medication Medication Name Sig Start Date Stop Date Notes Sucralfate 1 GM 1 tablet on an empty stomach Orally 4 times a day for 30 days 09/22/2024 RABEprazole Sodium 20 MG 1 tablet 1/2 to 1 hour before a meal Orally Once a day for 30 day(s) 09/22/2024 Next Appt Details Provider Name:Kiko De Leon ier, 11/10/2024 08:00:00 AM, [address] [place] [address], Suite [facility], [place], [place], [phone], Provider Name:Kiko De Leon ier, 11/17/2024 10:30:00 AM, [address] [place] [address], Suite [facility], [place], [place], [phone], Progress Notes * Mikal DENNYDOB: [birth year] (74 yo M)Acc No.[id number]:09/19/2024 Patient: Mikal VITALE :1950 A ge:74 Y S ex:Male Address:[address], [place] [address] * Refills Start RABEprazole Sodium Tablet Delayed Release, 20 MG, Orally, 30, 1 tablet 1/2 to 1 hour before a meal, Once a day, 30 day(s) Start Sucralfate Tablet, 1 GM, Orally, 120 Tablet, 1 tablet on an empty stomach, 4 times a day, 30 days * true * Date: Generated for Maryam fontaine/Pamela/Tishitting on: 0 10/15/2024 09:19 AM EDT
--- OUTSIDE RECORDS SUMMARY | 2024-10-07 09:38 | XMS_ITS ---
Author Organization Kiko Coats MD Address [address] [place] [phone] Care Team Providers Care Machine Shop Instructor Name Role Phone Kiko Coats Primary Care Provider REASON FOR VISIT refill Medications Medication SIG (Take, Route, Frequency, Duration) Notes Start Date End Date Status RABEprazole Sodium 20 MG 1 tablet 1/2 to 1 hour before a meal Orally Once a day for 90 days 09/22/2024 Active Encounters Encounter Location Date Provider Diagnosis Kiko Coats MD [address] [place] [phone] 10/07/2024 Kiko Coats Plan Of Treatment Medication Medication Name Sig Start Date Stop Date Notes RABEprazole Sodium 20 MG 1 tablet 1/2 to 1 hour before a meal Orally Once a day for 90 days 09/22/2024 Next Appt Details Provider Name:Kiko De Leon ier, 11/10/2024 08:00:00 AM, [address], [address], [place], [place], [phone], Provider Name:Kiko De Leon lurdes, 11/17/2024 10:30:00 AM, [address], [address], [place], [place], [phone], Progress Notes * Mikal DENNYDOB: [birth year] (74 yo M)Acc No.[id number]:10/07/2024 Patient: Mikal VITALE :1950 A ge:74 Y S ex:Male Address:[address], [place] [address] * Refills Refill RABEprazole Sodium Tablet Delayed Release, 20 MG, Orally, 90, 1 tablet 1/2 to 1 hour before a meal, Once a day, 90 days, Refills=0 * true * Date: Generated for Maryam fontaine/Pamela/Tishitting on: 0 10/15/2024 09:19 AM EDT
--- NOTE | ~2024-10-15 | XR_ITS ---
EXAMINATION: XR CLAVICLE, RIGHT CLINICAL INFORMATION: M89.8X1 - Other specified disorders of bone, shoulder COMPARISON: None available. TECHNIQUE: AP views of the right clavicle. FINDINGS: No acute cortical disruption. No lytic or blastic lesions. Degenerative changes in the right shoulder. Focal calcification near the right supraspinatus tendon. Calcified plaque thoracic aortic arch. XR/XR clavicle RT IMPRESSION: No acute fracture. Degenerative changes, right shoulder. Probable calcific tendinosis/tendinopathy, right supraspinatus. Electronically signed by: Que Lopez MD 10/15/2024 09:41 AM EDT
--- OUTSIDE RECORDS SUMMARY | 2024-10-15 09:20 | XMS_ITS | Patient Health Record ---
Author Organization [facility] Address [address] [facility] [address] [place] [id number] Support Name Relationship Address Phone QUENTIN DENNY Guarantor Unknown [phone] Reason For Referral No Information Plan Of Treatment No Information
--- OUTSIDE RECORDS SUMMARY | 2024-10-15 09:20 | XMS_ITS | Patient Health Record ---
Author Organization Kiko Coats MD Address [address] [place], [place] [id number] Care Team Providers Care Cabinet Finisher Name Role Phone JakeKiko calabrese Primary Care Provider [phone] Allergies No Known Allergies Results Component Value Reference Range Notes Hemoglobin A1c Reviewed date:01/28/2024 10:57:43 AM Interpretation: Performing Lab: Notes/Report: Hemoglobin A1c 6.1 Complete Blood Count Auto Di ff Reviewed date:11/05/2023 12:54:34 PM Interpretation: Performing Lab:[facility], [address] [place] [phone] Notes/Report: White Blood Count 11.8 4.8-10.8 X10*3/uL Red Blood Count 4.54 4.60-5.80 X10*6/uL Hemoglobin 13.4 14.0-18.0 g/dl Hematocrit 41.6 42.0-52.0 % Mean Corpuscular Volume 91.6 80.0-98.0 fL Mean Corpuscular Hemoglobin 29.5 27.0-33.0 pg Mean Corpuscular HGB Conc 32.2 31.0-36.0 g/dl Red Cell Distribution Width 15.4 11.0-16.0 % Platelet Count 199 160-400 X10*3/uL Mean Platelet Volume 11.3 9.4-12.4 fL Neutrophils Percent Auto 70.9 45-73 % Imm Gran Pct Auto 1.0 0.0-0.4 % Lymphocytes Percent Auto 17.2 20-40 % Monocytes Percent Auto 8.8 2-11 % Eosinophils Percent Auto 1.2 0-4 % Basophils Percent Auto 0.9 0-2 % NRBC Pct Auto 0.0 0.0-0.2 /100WBC Neutrophils Absolute Auto 8.3 2.0-8.3 x10*3/uL Imm Gran Abs Auto 0.12 0.00-0.03 X10*3/uL Lymphocytes Absolute Auto 2.0 1.2-4.9 X10*3/uL Monocytes Absolute Auto 1.0 0.1-1.2 X10*3/uL Eosinophils Absolute Auto 0.1 0.0-0.4 X10*3/uL Basophils Absolute Auto 0.1 0.0-0.2 X10*3/uL NRBC Abs Auto 0.000 0.0-0.012 X10*3/uL Comprehensive [place]. Panel Fa st Reviewed date:11/05/2023 12:54:08 PM Interpretation: Performing Lab:[facility], [address] [place] [phone] Notes/Report: Sodium 140 135-145 mmol/L Potassium 4.6 3.3-5.1 mmol/L Chloride 103 96-108 mmol/L Carbon Dioxide 29 22-29 mmol/L Anion Gap 13 12-20 Blood Urea Nitrogen 17 9-16 mg/dL Creatinine 1.51 0.5-1.4 mg/dL Estimated Glomerular Filt Rate 45 NOTE: For -Afghan individuals, multiply the result by 1.210. Chronic Kidney Disease: Estimated GFR < 60 mL/min/1.73m2 Severe Kidney Disease: Estimated GFR < 15 mL/min/1.73m2 Glucose Fasting 109 60-99 mg/dL A fasting glucose from 100-125 mg/dl is considered impaired (pre-diabetes). Calcium 9.5 8.4-10.2 mg/dL Bilirubin Total 0.9 0.0-1.0 mg/dL Aspartate Amino Transferase 15 5-37 U/L Alanine Aminotransferase 14 0-40 U/L Total Protein 7.1 6.5-8.0 g/dL Albumin Level 4.3 3.5-5.0 g/dL Alkaline Phosphatase 61 39-117 U/L Lipid Panel Reviewed date:11/05/2023 12:42:59 PM Interpretation: Performing Lab:[address] [phone] Notes/Report: Triglycerides 237 <150 mg/dL Desirable Triglyceride: less than 150 mg/dL Borderline High Triglyceride 150-199 mg/dL High Triglyceride: 200-499 mg/dL Very High Triglyceride: greater than or equal to 5OO mg/dL Cholesterol 124 <200 mg/dL Desirable Cholesterol: less than 200 mg/dL Borderline High Cholesterol: 200-239 mg/dL High Cholesterol: greater than 239 mg/dL LDL Cholesterol Calculated 42 <100 mg/dL Desirable LDL: less than 100 mg/dL Near Optimal/Above Optimal LDL: 110-129 mg/dL Borderline High LDL: 130-159 mg/dL High LDL: 160-189 mg/dL Very High LDL: greater than or equal to 190 mg/dL HDL Cholesterol 35 >40 mg/dL Desirable HDL: greater than 40 mg/dL Note: This HDL assay may give artificially low results in patients with liver disease. PSA,Total (Free>4and<10) Reviewed date:11/05/2023 12:43:16 PM Interpretation: Performing Lab:[address] [phone] Notes/Report: PSA,Total (Free>4and<10) < 0.10 0.00-4.00 ng/mL A Free PSA was not performed: The percentage of Free PSA can be used to enhance the differentiation of prostate cancer from benign prostatic disease in subjects whose PSA levels are between 4.0 and 10.0 ng/mL. For subjects whose PSA levels are below 4.0 or above 10.0 ng/mL, the risk of prostate cancer is determined on the basis of the PSA alone. Therefore the % Free PSA is recommended only for those subjects whose PSA levels are between 4.0 and 10.0 ng/mL. PSA methodology: Morales Alinity i Chemiluminescent Microparticle Immunoassay (CMIA) Microalbumin, Random Reviewed date:11/05/2023 05:03:15 PM Interpretation: Performing Lab:[address] [phone] Notes/Report: Creatinine Urine 82.51 Microalbumin Urine 82.0 Microalbum/Creatinine Ratio Ur 99.3 <30 ug/mg cr Albumin/Creatinine Ratio Reference Ranges: Normal: < 30 ug/mg creatinine Microalbuminuria: 30 - 300 ug/mg creatinine Clinical Albuminuria: > 300 ug/mg creatinine Hemoglobin A1c Reviewed date:11/05/2023 12:42:49 PM Interpretation: Performing Lab:[address] [phone] Notes/Report: Hemoglobin A1c % 6.1 <6.0 % Hemoglobin A1C Reference Range Adults: 4.8 - 6.0 % Non diabetic: < 6.0 % Goal: < 7.0 % Additional Action Suggested: > 8.0 % Note: Hemoglobin A1c results are invalid for patients with abnormal amounts of HbF. Blood transfusions may impact the HbA1c concentration in the patient sample. Estimated Average Glucose 128 eAG = Estimated average glucose which is %A1C expressed as average glucose, using the formula of the J5S-Ocrbdkc Average Glucose study (ADAG), Diabetes Care, Vol.31,#8, Sep. 2007 UA ClnCatch+Micro w/rflx Cul t Reviewed date:11/05/2023 05:03:32 PM Interpretation: Performing Lab:[address] [phone] Notes/Report: Urine, Clean Catch Color Urine Straw Appearance Urine Clear PH 8.0 5.0-9.0 Glucose Urine UA >=1000 Negative mg/dL Urine Blood Negative Negative Specific [place]we[place] - Urine 1.020 1.005-1.025 Urine Protein Trace Neg-Trace mg/dL Urine Ketones Negative Negative mg/dL Nitrite Urine Negative Negative Leukocyte Esterase Urine Negative Negative RBC Urine 0-2 0-2 /HPF WBC Urine 0-5 0-5 /HPF Squamous Epithelial Cell Urine 0-2 0-2 /HPF Bacteria Urine None Seen None Seen Hyaline Casts Urine 0-2 0-2 /LPF Glucose, finger stick Reviewed date:01/28/2024 10:52:18 AM Interpretation: Performing Lab: Notes/Report: Value 154 XR chest 2V Reviewed date:03/07/2024 12:57:23 PM Interpretation: Performing Lab: Notes/Report: [facility] [address] [place] [address] [place] [address] XRay Report Signed Patient: Mikal Elizondo MR#: [id number] : 1950 Acct:[id number] Age/Sex: 73 / M ADM Date: 03/06/24 Loc: [facility] Attending Dr: Kiko Coats MD Ordering Physician: Kiko Coats MD Date of Service: 03/06/24 Procedure(s): XR chest 2V Accession Number(s): [id number] cc: Kiko Coats MD EXAMINATION: XR CHEST CLINICAL INFORMATION: J40 BRONCHITIS COMPARISON: X-ray dated April 23, 2023. TECHNIQUE: 2 views of the chest were obtained. FINDINGS: Hyperinflated lungs and flattening of the diaphragm. No consolidation, pleural effusion or pneumothorax. Cardiomediastinal silhouette demonstrates a tortuosity of the thoracic aorta with calcified plaques on the lateral projection demonstrates a 3 morphology pattern. There is small appearance of the heart silhouette, unchanged. Multilevel thoracic and upper lumbar spondylosis. There is a stent likely in the abdominal aorta. XR/XR chest 2V IMPRESSION: No acute airspace disease. Stable chest. Electronically signed by: Que Lopez MD 03/07/2024 12:12 PM [facility] Dictated By: Que Wilkinson MD Signed By: <Electronically signed by Que Felix MD in OV> 03/07/24 1212 DD/ 1406 TD/TT: 03/06/24 1410 Senior Applications Architect: [facility] [address] [place] [address] [place] [address] XRay Report Signed Patient: Yadira Elizondo MR#: [id number] : 1950 Acct:[id number] Age/Sex: 73 / M ADM Date: 03/06/24 [facility] Dr: Kiko Coats MD Ordering Physician: Kiko Coats MD Date of Service: 03/06/24 Procedure(s): XR chest 2V Accession Number(s): [id number] cc: Kiko Coats MD EXAMINATION: XR CHEST CLINICAL INFORMATION: J40 BRONCHITIS COMPARISON: X-ray dated April 23, 2023. TECHNIQUE: 2 views of the chest were obtained. FINDINGS: Hyperinflated lungs and flattening of the diaphragm. No consolidation, pl eural effusion or pneumothorax. Cardiomediastinal silhouette demonstrates a tortuosity of the thoracic aorta with calcified plaques on the lateral projection demonstrates a 3 morphology pattern. There is small appearance of the heart silhouette, unchanged. Multilevel thoracic and upper lumbar spondylosis. There is a stent lik raji in the abdominal aorta. X R/XR chest 2V IMPRESSION: No acute airspace disease. Stable chest. Electronically emy d by: Que Lopez MD 03/07/2024 12:12 PM [facility] Dictated By: Que Grullon MD Signed By: <Electronically signed by Que Felix MD in OV> 03/07/24 1212 DD/ 1406 TD/TT: 03/06/24 1410 Senior Applications Architect: Liver Panel Reviewed date:05/05/2024 12:51:46 PM Interpretation: Performing Lab:[facility], [address] [place] [phone] Notes/Report: Bilirubin Total 0.4 0.0-1.0 mg/dL Bilirubin Direct 0.2 0.0-0.5 mg/dL Aspartate Amino Transferase 21 5-37 U/L Alanine Aminotransferase 24 0-40 U/L Total Protein 7.0 6.5-8.0 g/dL Albumin Level 4.0 3.5-5.0 g/dL Alkaline Phosphatase 51 39-117 U/L Glucose Fasting Reviewed date:05/05/2024 12:52:03 PM Interpretation: Performing Lab:[facility], [address] [place] [phone] Notes/Report: Glucose Fasting 97 60-99 mg/dL Lipid Panel with Reflex Reviewed date:05/05/2024 04:32:27 PM Interpretation: Performing Lab:[facility], [address] [place] [phone] Notes/Report: Triglycerides 251 <150 mg/dL Desirable Triglyceride: less than 150 mg/dL Borderline High Triglyceride 150-199 mg/dL High Triglyceride: 200-499 mg/dL Very High Triglyceride: greater than or equal to 5OO mg/dL Cholesterol 135 <200 mg/dL Desirable Cholesterol: less than 200 mg/dL Borderline High Cholesterol: 200-239 mg/dL High Cholesterol: greater than 239 mg/dL LDL Cholesterol Calculated 46 <100 mg/dL Desirable LDL: less than 100 mg/dL Near Optimal/Above Optimal LDL: 110-129 mg/dL Borderline High LDL: 130-159 mg/dL High LDL: 160-189 mg/dL Very High LDL: greater than or equal to 190 mg/dL HDL Cholesterol 39 >40 mg/dL Desirable HDL: greater than 40 mg/dL Note: This HDL assay may give artificially low results in patients with liver disease. Hemoglobin A1c Reviewed date:05/05/2024 11:59:28 AM Interpretation: Performing Lab:[facility], [address] [place] [phone] Notes/Report: Hemoglobin A1c % 6.1 <6.0 % Hemoglobin A1C Reference Range Adults: 4.8 - 6.0 % Non diabetic: < 6.0 % Goal: < 7.0 % Additional Action Suggested: > 8.0 % Note: Hemoglobin A1c results are invalid for patients with abnormal amounts of HbF. Blood transfusions may impact the HbA1c concentration in the patient sample. Estimated Average Glucose 128 eAG = Estimated average glucose which is %A1C expressed as average glucose, using the formula of the N3C-Iuarbcw Average Glucose study (ADAG), Diabetes Care, Vol.31,#8, Sep. 2007 Reason For Referral Reason cervial disc disease Diagnosis 1 Cervical disc diseas e (M50.90) Referral Organization Kiko Coats MD Referring Provider First Name Kiko Referring Provider Last Name Jorge L Referring Provider Speciality Internal M edicine Referred Provider Bora Cisneros Referred Provider Specialty Neurological Surgery General Notes Molly Webber 09:47:56 AM EDT > MRI pending, Molly Webber 11/19/2023 11:28:44 AM EDT > MRI was done at [facility] on 11-17-2023, Molly Webber 11/20/2023 09:18:48 AM EDT > info faxed to Dr. Cisneros patient is aware of appt info regarding appt also mailed to patient with a copy on his MRI Referral Priority Routine Referral Appointment Date 12/13/2023 Reason please eval and corey t Diagnosis 1 Esophageal ulcer wit hout bleeding (K22.10) Referral Organization Kiko Coats MD Referring Provider First Name Kiko Referring Provider Last Name Jorge L Referring Provider Speciality Internal M edicine Referred Provider [facility] Referred Provider Specialty Gastroentero logy General Notes Molly Webber 0 09/19/2024 02:58:33 PM > patient is aware of appt, Was told we needed to send a referral (doctor to doctor referral ) Referral Priority Routine Referral Appointment Date 11/12/2024 Medications Medication SIG (Take, Route, Frequency, Duration) Notes Start Date End Date Status Cialis 20 MG 1 tablet Orally Once a day Active Triamcinolone Acetonide 0.5 % 1 application Externally Once a day for 14 days 11/15/2020 Active Multi Vitamin Daily - 1 tablet Orally On ce a day for 30 day(s) Active Betamethasone Dipropionate 0.05 % as directed Externally daily for 30 days 02/10/2011 Not-Taking Ipratropium-Albuterol 0.5-2.5 (3) MG/3ML INHALE 1 VIAL EVERY 4 HOURS NEEDED INHALATION EVERY 6 HRS 30 DAYS Active Aspir-81 81 MG 1 tablet Orally Once a day for 30 day(s) Active valACYclovir HCl 1 GM TAKE 2 TABLETS BY MOUTH EVERY 12 HOURS for 3 Not-Taking Stiolto Respimat 2.5-2.5 MCG/ACT INHALE 2 PUFFS INTO THE LUNGS ONCE DAILY Active PreserVision AREDS 2 - as directed Orally Active Qvar RediHaler 80 MCG/ACT TAKE 1 PUFF BY MOUTH TWICE A DAY Not-Taking Carvedilol 25 MG 1 tablet with food Orally Twice a day Active Vitamin C 500 MG as directed Orally Not-Taking Hydrocod Pravin-Chlorphe Pravin ER 10-8 MG/5ML 5 mL as needed Orally every 12 hrs as needed for 10 days 04/26/2023 Not-Taking amLODIPine Besylate 5 MG TAKE 1 TABLET B Y MOUTH ONCE A DAY FOR 30 DAY(S) Orally Once a day Active Albuterol Sulfate HFA 108 (90 Base) MCG/ACT 1 puff as needed Inhalation every 4 hrs 05/07/2023 Not-Takin g traMADol HCl 100 MG 1 tablet as [...] DAILY WITH FOOD FOR 30 DAYS Not-Taking traMADol HCl 50 MG 2 tabs as needed Ora lly Once a day for 30 days 07/24/2024 Not-Juwan g Sucralfate 1 GM 1 tablet on an empty stomach Orally 4 times a day for 30 days 09/22/2024 Active Jardiance 10 MG 1 tablet Orally Once a day Active Atorvastatin Calcium 40 MG TAKE 1 TABLET BY MOUTH EVERY DAY Active Ferrous Gluconate 324 (38 Fe) MG 1 tablet Orally once a day Active RABEprazole Sodium 20 MG 1 tablet 1/2 to 1 hour before a meal Orally Once a day for 90 days 09/22/2024 Active ProAir HFA 108 (90 Base) MCG/ACT 2 puffs as needed Inhalation every 4 hrs for 30 days Not-Taking Levalbuterol Tartrate 45 MCG/ACT INHALE 2 PUFFS NEEDED EVERY 4 HOURS FOR 30 DAYS INHALATION EVERY 6 HRS for 30 Active Immunizations Vaccine Route Administration Date Status Comme nts Flu Vaccine IM Intramuscular 12/25/2011 Administered Flu Vaccine Unknown 11/19/2012 Administered flu vac giv en at [place] Fluarix Quadrivalent IM Intramuscular 11/14/2013 Administe red Fluarix Quadrivalent IM Intramuscular 12/14/2014 Administe sherice Prevnar 13 Unknown 07/22/2014 [facility]ered [facility] [place] PPSV23 (Pnemovax) IM Intramuscular 10/11/2015 Administered Fluarix Quadrivalent IM Intramuscular 10/26/2015 Administe sherice Shingles Unknown 11/04/2012 Administered done at the [place] Fluarix Quadrivalent IM Intramuscular 01/19/2017 Admintroy smiley Fluarix Quadrivalent IM Intramuscular 12/03/2017 Adm[facility]roy smiley TDaP Unknown 07/30/2006 Administered At the [place] Fluarix Quadrivalent IM Intramuscular 11/05/2018 Admintroy smiley pt was given the vaccine at the [place]. Influenza High Dose Unknown 11/04/2019 [facility]ered [facility] [place] Shingrix Unknown 11/04/2019 [facility]ered [facility] [place] Shingrix Unknown 02/25/2020 [facility]ered [facility] SARS-COV-2 Moderna Unknown 03/31/2020 Administered SARS-COV-2 Moderna Unknown 04/28/2020 Administered Influenza High Dose IM Intramuscular 11/15/2020 Administer ed SARS-COV-2 Pfizer Unknown 01/10/2021 Administered Influenza High Dose IM Intramuscular 11/18/2021 Administer ed Influenza High Dose IM Intramuscular 03/08/2023 Administer ed Influenza High Dose IM Intramuscular 11/05/2023 Administer ed Flu Vaccine Unknown 11/14/2013 Pending Social History Tobacco Use: Social History Observation Description Date Details (start date - stop date) Former Smoker NA - NA Tobacco Use/Smoking Question Answer Notes Patient is a former smoker Additional Findings: Tobacco Non-User Fo rmer smoker, currently using no form of tobacco Alcohol Screen Question Answer Notes Did you have a drink contain ing alcohol in the past year? Yes How often did you have a dri nk containing alcohol in the past year? Monthly or less (1 point) How many drinks did you have on a typical day when you were drinking in the past year? 1 or 2 drinks (0 point) How often did you have 6 or more drinks on one occasion in the past year? Never (0 point) Points 1 Interpretation Negative Problems Problem Type SNOMED Code ICD Code Onset Dates Problem Status W/U Status Risk Notes Problem Carotid artery disease (457906903) Carotid artery disease (I77.9) Active confirmed Problem Dysphagia (69753411) Dysphagia (R13.10) Active confirmed Problem 211557433 Hypomagnesemia (E83.42) Active confirmed Problem 19470362 Hypercalcemia (E83.52) Active confirmed Problem 17735531 Other chronic pa in (G89.29) Active confirmed Problem 6333322 Panlobular emphysema (J43.1) Active confirmed Problem 655825366115192 Erectile dysfunction due to arterial insufficiency (N52.01) Active confirmed Problem 642657284 Lumbar disc disease (M51.9) Active confirmed Problem 39611752 Essential hypertension (I10) Active confirmed Problem 266496364 Prostate cancer (C61) Active confirmed Problem Psoriasis (0275448) Psoriasis (L40.9) Active co nfirmed Problem 64474653 Type 2 diabetes mellitus without complication (E11.9) Active confirmed Problem 64087169 Abdominal aortic aneurysm without rupture (I71.4) Active confirmed Problem 803949189 Low HDL (under 4 0) (E78.6) Active confirmed Problem 660546133 Anemia, unspecified anemia type (D64.9) Active confirmed Problem 982697889 High triglycerid es (E78.1) Active confirmed Problem 304161536 Cervical disc disease (M50.90) Active confirmed Problem 08239742 Intrinsic eczema (L20.84) Active confirmed Problem 837855882 Raynauds disease without gangrene (I73.00) Active confirmed Problem 604233442 COPD exacerbatio n (J44.1) Active confirmed Problem Atherosclerosis (74146314) Atherosclerosis (I70.90) Active confirmed Problem Leukocytosis (093561291) Elevated WBC count (D72.829) Active confirmed Problem 939945092 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) Active confirmed Problem 297622349 Nodule of tongue (R22.0) Active confirmed Problem 27040190 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) Active confirmed Problem 624264720 COPD with exacerbation (J44.1) Active confirmed Problem 9363064117184036 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) Active confirmed Problem 900249490 Low blood magnesium (R79.0) Active confirmed Problem 037949059 Age-related incipient cataract of both eyes (H25.093) Active confirmed Problem 780919328 Arthritis, 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) Active confirmed Problem Ulcer of esophagus (26463485) Esophageal ulcer without bleeding (K22.10) Active confirmed Vital Signs Blood pressure diastolic 50 mm Hg 08/04/2024 rio ght is down 2 pounds since 05-09-24 Height 70 in 08/04/2024 weight is down 2 pounds since 05-09-24 Blood pressure systolic 140 mm Hg 08/04/2024 sara ht is down 2 pounds since 05-09-24 Weight 176 lbs 08/04/2024 weight is down 2 pounds since 05-09-24 BMI 25.25 kg/m2 08/04/2024 weight is down 2 pounds since 05-09-24 Encounters Encounter Location Date Provider Diagnosis Kiko Coats MD [address] [place] [id number] 11/05/2023 Kiko Coats Type 2 diabetes mellitus without complication E11.9 ; Anemia, unspecified anemia type D64.9 ; Essential hypertension I10 and Hypomagnesemia E83.42 Kiko Coats MD [address] [place] [address] [id number] 11/05/2023 Kiko Coats Encounter for immunization Z23 Kiko Coats MD [address] [place] [address] [id number] 12/24/2023 Kiko Coats Spinal stenosis of lumbar region with neurogenic claudication M48.062 ; Cervicalgia M54.2 and Other chronic pain G89.29 Kiko Coats MD [address] [place] [address] [id number] 11/13/2023 Kiok Coats Type 2 diabetes mellitus without complication E11.9 ; Lumbar disc disease M51.9 ; Panlobular emphysema J43.1 ; Anemia, unspecified anemia type D64.9 ; High triglycerides E78.1 ; Dysphagia R13.10 ; Hypomagnesemia E83.42 ; Arthritis, lumbar spine M47.816 ; Depression screening Z13.31 and Essential hypertension I10 Kiko Coats MD [address] [place] [address] [id number] 11/23/2023 Kiko Coats Lumbar disc disease M51.9 Kiko Coats MD [address] [place] [address] [id number] 01/28/2024 Kiko Coats Type 2 diabetes mellitus without complication E11.9 ; Skin lesion L98.9 and Panlobular emphysema J43.1 Kiko Coats MD [address] [place] [address] [id number] 02/25/2024 Kiko Coats COPD with exacerbati on J44.1 Kiko Coats MD [address] [place] [address] [id number] 03/06/2024 Kiko Coats Lumbar disc disease M51.9 and Bronchitis J40 Kiko Coats MD [address] [place] [address] [id number] 05/09/2024 Kiko Coats Panlobular emphysema J43.1 ; Type 2 diabetes mellitus without complication E11.9 and Low HDL (under 40) E78.6 Kiko Coats MD [address] [place] [address] [id number] 08/04/2024 Kiko Coats Esophageal ulcer without bleeding K22.10 ; Panlobular emphysema J43.1 and Essential hypertension I10 Kiko Coats MD [address] [place] [address] [id number] 11/26/2023 Kiko Coats MD [address] [place] [address] [id number] 11/26/2023 Kiko Coats MD [address] [place] [address] [id number] 03/14/2024 Kiko Coats Lumbar disc disease M51.9 Kiko Coats MD [address] [place] [address] [id number] 07/24/2024 Kiko Coats MD [address] [place] [address] [id number] 07/31/2024 Kiko Coats MD [address] [place] [address] [id number] 09/19/2024 Kiko Coats MD [address] [place] [address] [id number] 10/07/2024 Kiko Coats Assessments Encounter Date Diagnosis (ICD Code) Assessment Notes Treatment Notes Treatment Clinical Notes Section Notes 11/05/2023 Type 2 diabetes mellitus without complication (ICD-10 - E11.9) 11/05/2023 Anemia, unspecified anemia type (ICD-10 - D64.9) 11/05/2023 Encounter for immunization (ICD-10 - Z23) 12/24/2023 Spinal stenosis of lumbar region with neurogenic claudication (ICD-10 - M48.062) send for note from dr cisneros/ request for records sent 12/24/2023 Cervicalgia (ICD-10 - M54.2) the pain is consistent with his arthritis and does not appear that xrays are indicated at present tome 11/13/2023 Type 2 diabetes mellitus without complication (ICD-10 - E11.9) 11/13/2023 Lumbar disc disease (ICD-10 - M51.9) referral to dr cisneros 11/23/2023 Lumbar disc disease (ICD-10 - M51.9) discussed findngs of recent MRI with patient, patient verbalized understanding to increase dose of medication.have reviewed in detail the results of the mri. is awaiting consult of dr cisneros 01/28/2024 Type 2 diabetes mellitus without complication (ICD-10 - E11.9) good a1c 01/28/2024 Skin lesion (ICD-10 - L98.9) will refer to derm 02/25/2024 COPD with exacerbation (ICD-10 - J44.1) patient verbalized understanding of medication and directions for use 03/06/2024 Lumbar disc disease (ICD-10 - M51.9) 03/06/2024 Bronchitis (ICD-10 - J40) patient verbalized understanding of medication and directions for use. x-ray order faxed to [facility] 05/09/2024 Panlobular emphysema (ICD-10 - J43.1) doing well using his updrafts once a day, will continue current regiment 08/04/2024 Esophageal ulcer without bleeding (ICD-10 - K22.10) need results of biopsy/ will send for results 03/14/2024 Lumbar disc disease (ICD-10 - M51.9) 11/05/2023 Essential hypertension (ICD-10 - I10) 12/24/2023 Other chronic pain (ICD-10 - G89.29) 11/13/2023 Panlobular emphysema (ICD-10 - J43.1) 01/28/2024 Panlobular emphysema (ICD-10 - J43.1) doing well 05/09/2024 Type 2 diabetes mellitus without complication (ICD-10 - E11.9) doing well, will contnue curent rgiment 08/04/2024 Panlobular emphysema (ICD-10 - J43.1) stable 11/05/2023 Hypomagnesemia (ICD-10 - E83.42) 11/13/2023 Anemia, unspecified anemia type (ICD-10 - D64.9) 05/09/2024 Low HDL (under 40) (ICD-10 - E78.6) stable, will cpntnue current regiment 08/04/2024 Essential hypertension (ICD-10 - I10) well contrlolled 11/13/2023 High triglycerides (ICD-10 - E78.1) remains elevated, advised to watch diet, will continue to monitor 11/13/2023 Dysphagia (ICD-10 - R13.10) 11/13/2023 Hypomagnesemia (ICD-10 - E83.42) 11/13/2023 Arthritis, lumbar spine (ICD-10 - M47.816) 11/13/2023 Depression screening (ICD-10 - Z13.31) 11/13/2023 Essential hypertension (ICD-10 - I10) Plan Of Treatment Pending Test Test Name Order Date Electrocardiogram (EKG) 02/01/2018 Electrocardiogram (EKG) 02/14/2019 MRI LUMBAR SPINE NO CONTRAST 04/28/2022 XR CHEST 2 VIEW PA & LAT 04/23/2023 XR CHEST 2 VIEW PA & LAT 03/06/2024 US ABD 12/26/2022 ECG 30 day event monitor 01/10/2022 CT lumbar spine wo con 05/18/2022 MR elbow RT wo/w con 2022 MR lumbar spine wo con 11/13/2023 XR elbow RT min 3V 2022 Next Appt Details Provider Name:Kiko De Leon ier, 11/10/2024 08:00:00 AM, [address] [place] [address], [place] [address], [place], [place], [phone], Provider Name:Kiko De Leon ier, 11/17/2024 10:30:00 AM, [address] [place] [address], [place] [address], [place], [place], [phone], Insurance Providers Payer Name Payer Address Payer Phone Subscriber Number Group Number Insured Name Patient Relationship to Insured Coverage Start Date Coverage End Date [employer] [address] [place] [address] [id number] Mikal Elizondo Self - patient is the insured 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 [address] [place] [address] [phone] [id number] [phone] Mikal Elizondo Self - patient is the insured Medical (General) History Medical History History ICD Code esophageal stricture hypercholesterolemia hypertension asthma - mild intermittent colonoscopy 02/2014 and [place] [place] [facility] probably not able to access those records but will be followed by them. possibly someone in [facility] did it colonoscopy and endoscopy 2022
== END 2024-10-15 08:13 | disposition home or self-care (01) ==
LOC: HO.HMGCX 08:12
PROVIDERS: PCP Internal Medicine; Visit Provider Physician Assistant Medical
DX: M89.8X1 Other specified disorders of bone, shoulder (principal); M95.8 Other specified acquired deformities of musculoskeletal system
CPT/HCPCS: 73000; 99212

== ENCOUNTER → 2024-10-15 09:05 | Outpatient (BNV) | payer MEDICARE, OTHER, SELFPAY | PROVIDERS: PCP Internal Medicine; Visit Provider Radiology Diagnostic Radiology | DX: M19.011 Primary osteoarthritis, right shoulder (principal) | CPT/HCPCS: 73000 ==

== ENCOUNTER 2024-11-13 12:36 | Outpatient (REF) | payer MEDICARE, OTHER, SELFPAY ==
--- OUTSIDE RECORDS SUMMARY | 2024-08-04 10:30 | XMS_ITS ---
Author Organization Kiko Coats MD Address [address] [place], [place] [phone] Care Team Providers Care Rotary Machine Operator Name Role Phone Kiko Coats Primary Care Provider [phone] Allergies No Known Allergies REASON FOR VISIT [...] Status Risk Notes Problem Ulcer of esophagus (51985768) Esophageal ulcer without bleeding (K22.10) Active confirmed Vital Signs Blood pressure systolic 140 mm Hg 08/05/19 25 Blood pressure diastolic 50 mm Hg 025 Height 70 in 08/04/2024 Weight 176 lbs 08/04/2024 BMI 25.25 kg/m2 08/04/2024 weight is down 2 pounds [facility] e 05-09-24 Encounters Encounter Location Date Provider Diagnosis Kiko Coats MD [address] [place], [place] [phone] 08/04/2024 Kiko Coats Esophageal ulcer without bleeding [...] contrlolled Next Appt Details Provider Name:Kiko chatman, 11/17/2024 10:30:00 AM, [address], [address], [place], [place], [phone], Progress Notes * Loree DENNY: [birth year] (74 yo M)Acc No.[id number]:08/04/2024 Patient: Mikal VITALE Provider: La Coats MD :1950 A ge:74 Y S ex:Male Date:08/04/2024 Address:[address], [place], [facility] Subjective: * Chief Complaints: * P H/TcM * HPI: S ymptom(s): patient is a 74 yo male her for transitional care managment visit with review of discharge summary and medications reconcilled/ had been in the hospital for chest pain and was found to have an ulcer in esophagus./ was in hospital for 1 week. * ROS: G eneral/Constitutional: Denies Marco hills. D enies F atigue. D enies F ever. D enies H eadache. E NT: Denies S ore throat. R espiratory: Mary Ann Lara ough. D enies S hortness of breath [...] 0 08/04/2024 Generated for Maryam fontaine/Pamela/Tishitting on: 0 11/13/2024 05:24 PM EDT History and Physical Notes * HPI [...]
--- OUTSIDE RECORDS SUMMARY | 2024-09-19 10:15 | XMS_ITS ---
Author Organization Kiko Coats MD Address [address] [place], [place] [phone] Care Team Providers Care Marketing Summer Intern Name Role Phone Kiko Coats Primary Care Provider [phone] REASON FOR VISIT refill Medications Medication SIG [...] Date Provider Diagnosis Kiko Coats MD [address] [facility] [address] [place], [place] [phone] 09/19/2024 Kiko Coats Plan Of Treatment Medication Medication Name Sig Start Date Stop Date Notes Sucralfate 1 GM 1 tablet on an empty stomach Orally 4 times a day for 30 days 09/22/2024 RABEprazole Sodium 20 MG 1 tablet 1/2 to 1 hour before a meal Orally Once a day for 30 day(s) 09/22/2024 Next Appt Details Provider Name:Kiko Zhao Jakecalli ier, 11/17/2024 10:30:00 AM, [address] [place] [address], Suite [facility], [place], [place], [phone], Progress Notes * Mikal DENNYDOB: [birth year] (74 yo M)Acc No.[id number]:09/19/2024 Patient: Mikal VITALE :1950 A ge:74 Y S ex:Male Address:[address], [place] [address] * Refills Start RABEprazole Sodium Tablet Delayed Release, 20 MG, Orally, 30, 1 tablet 1/2 to 1 hour before a meal, Once a day, 30 day(s) Start Sucralfate Tablet, 1 GM, Orally, 120 Tablet, 1 tablet on an empty stomach, 4 times a day, 30 days * true * Date: Generated for Maryam fontaine/Pamela/Tishitting on: 0 11/13/2024 05:24 PM EDT
--- OUTSIDE RECORDS SUMMARY | 2024-10-07 09:38 | XMS_ITS ---
Author Organization Kiko Coats MD Address [address] [place] [phone] Care Team Providers Care Facing Cutting Machine Operator Name Role Phone Kiko Coats Primary Care Provider REASON FOR VISIT refill Medications Medication SIG (Take, Route, Frequency, Duration) Notes Start Date End Date Status RABEprazole Sodium 20 MG 1 tablet 1/2 to 1 hour before a meal Orally Once a day for 90 days 09/22/2024 Active Encounters Encounter Location Date Provider Diagnosis Kiko Coats MD [address] [place] [phone] 10/07/2024 Kiko Coats Plan Of Treatment Medication Medication Name Sig Start Date Stop Date Notes RABEprazole Sodium 20 MG 1 tablet 1/2 to 1 hour before a meal Orally Once a day for 90 days 09/22/2024 Next Appt Details Provider Name:Kiko De Leon ier, 11/17/2024 10:30:00 AM, [address], [address], [place], [place], [phone], Progress Notes * CELSAHAILESammB: [birth year] (74 yo M)Acc No.[id number]:10/07/2024 Patient: Mikal VITALE :1950 A ge:74 Y S ex:Male Address:[address], [place] [address] * Refills Refill RABEprazole Sodium Tablet Delayed Release, 20 MG, Orally, 90, 1 tablet 1/2 to 1 hour before a meal, Once a day, 90 days, Refills=0 * true * Date: Generated for Maryam fontaine/Pamela/Tishitting on: 0 11/13/2024 05:25 PM EDT
--- OUTSIDE RECORDS SUMMARY | 2024-11-07 06:45 | XMS_ITS ---
Author Organization Kiko Coats MD Address [address] [place] [phone] Care Team Providers Care Engineering Team Supervisor Name Role Phone Jorge LTian Primary Care Provider [phone] REASON FOR VISIT RE: Annual Patient Experience Survey Encounters Encounter Location Date Provider Diagnosis Kiko Coats MD [address] [place] [address] [place] [phone] 11/07/2024 Kiko Coats Plan Of Treatment Next Appt Details Provider Name:Kiko chatman, 11/17/2024 10:30:00 AM, [address] [place] [address], Suite [facility], [place], [place], [phone], Progress Notes * Mikal DENNYDOB: [birth year] (74 yo M)Acc No.[id number]:11/07/2024 Patient: Sridhar Mikal RICHTER :1950 A ge:74 Y S ex:Male Address:[address], [place] [address] * true * Date: Generated for Maryam fontaine/Pamela/Travis on: 0 11/13/2024 05:25 PM EDT
--- OUTSIDE RECORDS SUMMARY | 2024-11-13 04:00 | XMS_ITS ---
Author Organization Kiko Coats MD Address [address] [place], [place] [address] Care Team Providers Care Wash And Greaser Name Role Phone Jorge LTian Primary Care Provider [phone] Results Component Value Reference Range Notes Complete Blood Count Auto Di ff Reviewed date:11/13/2024 04:28:00 PM Interpretation: Performing Lab:[facility], [address] [place] [phone] Notes/Report: White Blood Count 9.2 4.8-10.8 X10*3/uL [...] NRBC Abs Auto 0.000 0.0-0.012 X10*3/uL Comprehensive [place]. Panel Fa st Reviewed date:11/13/2024 04:28:23 PM Interpretation: Performing Lab:[facility], [address] [place] [phone] Notes/Report: Sodium 142 135-145 mmol/L Potassium 3.9 [...] PROFILE Reviewed date:11/13/2024 04:19:48 PM Interpretation: Performing Lab:[facility], [address] [place] [phone] Notes/Report: Iron 63 45-160 mcg/dL Total Iron Binding Capacity 244 228-428 mcg/d L Percent Iron Saturation 26 15-50 % Unsaturated Iron Binding 181 Lipid Panel Reviewed date:11/13/2024 04:24:20 PM Interpretation: Performing Lab:[facility], [address] [place] [phone] Notes/Report: Triglycerides 283 <150 mg/dL Desirable Triglyceride: [...] (Free>4and<10) Reviewed date:11/13/2024 04:24:30 PM Interpretation: Performing Lab:[address] [address] Notes/Report: PSA,Total (Free>4and<10) < 0.10 0.00-4.00 ng/mL [...] Random Reviewed date:11/13/2024 04:25:27 PM Interpretation: Performing Lab:[address] [address] Notes/Report: Creatinine Urine 70.25 Microalbumin Urine 79.0 Microalbum/Creatinine Ratio Ur 112.4 <30 ug/mg cr Albumin/Creatinine Ratio Reference Ranges: Normal: < 30 ug/mg creatinine Microalbuminuria: 30 - 300 ug/mg creatinine Clinical Albuminuria: > 300 ug/mg creatinine Hemoglobin A1c Reviewed date:11/13/2024 04:19:36 PM Interpretation: Performing Lab:[address] [address] Notes/Report: Hemoglobin A1c % 6.3 <6.0 % [...] average glucose, using the formula of the S0S-Yauerzo Average Glucose study (ADAG), Diabetes Care, Vol.31,#8, Sep. 2007 UA ClnCatch+Micro w/rflx Cul t Reviewed date:11/13/2024 04:28:44 PM Interpretation: Performing Lab:[address] [phone] Notes/Report: [id number] Urine, Clean Catch Color Urine Yellow Appearance Urine Clear PH 7.0 5.0-9.0 Glucose Urine UA >=1000 Negative mg/dL Urine Blood Negative Negative Specific [place] - Urine 1.010 1.005-1.025 Urine Protein Trace [...] Provider Diagnosis Kiko Coats MD [address] [place], [place] [id number] 11/13/2024 Kiko Coats Type 2 diabetes mellitus without complication E11.9 ; Essential hypertension I10 ; Low HDL (under 40) E78.6 ; Anemia, unspecified anemia type D64.9 ; High triglycerides E78.1 and Encounter for administration of vaccine Z23 Assessments Encounter Date Diagnosis (ICD Code) Assessment Notes Treatment Notes Treatment Clinical Notes Section Notes 11/13/2024 Type 2 diabetes mellitus without complication (ICD-10 - E11.9) 11/13/2024 Essential hypertension (ICD-10 - I10) 11/13/2024 Low HDL (under 40) (ICD-10 - E78.6) 11/13/2024 Anemia, unspecified anemia type (ICD-10 - D64.9) 11/13/2024 High triglycerides (ICD-10 - E78.1) 11/13/2024 Encounter for administration of vaccine (ICD-10 - Z23) Plan Of Treatment Next Appt Details Provider Name:Kiko De Leon ier, 11/17/2024 10:30:00 AM, [address], [address], [place], [place], [id number], Progress Notes * Mikal DENNYDOB: [birth year] (74 yo M)Acc No.[id number]:11/13/2024 Progress Note Patient: Mikal VITALE Provider: La Coats MD :1950 A ge:74 Y S ex:Male Date:11/13/2024 Address:[address], [place] Subjective: * Chief Complaints: * 1 . Yearly fasting labs. * Medical History: Objective: * Vitals: Assessment: * Assessment: 1. T ype 2 diabetes mellitus without complication - E11.9 (Primary) 2 . E ssential hypertension - I10 3 . L ow HDL (under 40) - E78.6 4 .?Anemia, unspecified anemia type - D64.9 5 . H igh triglycerides - E78.1 6 . E ncounter for administration of vaccine - Z23 Plan: * Treatment: 2. E ssential hypertension L AB: Complete Blood Count Auto Diff (Collection Date & Time - 11/13/2024 08:00 AM) L AB: Comprehensive [place]. Panel Fast (Collection Date & Time - [...] - 11/13/2024 08:00 AM) L AB: Comprehensive [place]. Panel Fast (Collection Date & Time - [...] - 11/13/2024 08:00 AM) L AB: Comprehensive [place]. Panel Fast (Collection Date & Time - [...] - 11/13/2024 08:00 AM) L AB: Comprehensive [place]. Panel Fast (Collection Date & Time - [...] * Procedure Codes: 3 6415 VENIPUNCT, ROUTINE*, 68918 FLU VACC PRSV FREE INC ANTIG, G0008 ADMN FLU VAC NO FEE SCHED SAME DAY * * The named appointment provid er may or may not be the originator of this progress note, and it is not deemed complete until electronically signed by the appointment provider. Sign off status: Pending * Provider: La Coats MD Date: 11/13/2024 Generated for Maryam fontaine/Pamela/Travis on: 11/13/2024 05:24 PM EDT
[2024-11-13 12:40] LABS: MANUAL DIFF FLAG NO
[2024-11-13 12:48] LABS: Hematocrit 41.0 % (42.0-52.0); Hemoglobin 13.1 g/dl (14.0-18.0); Imm Gran Abs Auto 0.07 X10*3/uL (0.00-0.03); Imm Gran Pct Auto 0.8 % (0.0-0.4); Lymphocytes Absolute Auto 1.5 X10*3/uL (1.2-4.9); Mean Corpuscular HGB Conc 32.0 g/dl (31.0-36.0); Mean Corpuscular Hemoglobin 29.4 pg (27.0-33.0); Mean Corpuscular Volume 92.1 fL (80.0-98.0); NRBC Abs Auto 0.000 X10*3/uL (0.0-0.012); NRBC Pct Auto 0.0 /100WBC (0.0-0.2); Platelet Count 176 X10*3/uL (160-400); Red Blood Count 4.45 X10*6/uL (4.60-5.80); White Blood Count 9.2 X10*3/uL (4.8-10.8)
[2024-11-13 13:01] LABS: Hemoglobin A1C 148.9720 umol/L; Total Hemoglobin (HGBA1C) 3315.8260 umol/L
[2024-11-13 13:14] LABS: Alanine Aminotransferase 18 U/L (0-40); Albumin Level 4.4 g/dL (3.5-5.0); Alkaline Phosphatase 81 U/L (39-117); Anion Gap 13 (12-20); Aspartate Amino Transferase 22 U/L (5-37); Blood Urea Nitrogen 16 mg/dL (9-16); Calcium 9.0 mg/dL (8.4-10.2); Carbon Dioxide 29 mmol/L (22-29); Chloride 104 mmol/L (96-108); Cholesterol 139 mg/dL (<200); Estimated Glomerular Filt Rate 51; HDL Cholesterol 28 mg/dL (>40); Iron 63 mcg/dL (45-160); Percent Iron Saturation 26 % (15-50); Potassium 3.9 mmol/L (3.3-5.1); Sodium 142 mmol/L (135-145); Total Iron Binding Capacity 244 mcg/dL (228-428); Total Protein 7.3 g/dL (6.5-8.0); Triglycerides 283 mg/dL (<150); Unsaturated Iron Binding 181 ug/dL
[2024-11-13 13:17] LABS: Appearance Urine Clear; Glucose Urine UA >=1000 mg/dL (Negative); PH 7.0 (5.0-9.0); Specific Gravity - Urine 1.010 (1.005-1.025); UMIC TRIGGER UACC YES
[2024-11-13 13:21] LABS: PSA,Total (Free>4and<10) < 0.10 ng/mL (0.00-4.00)
[2024-11-13 14:03] LABS: Microalbum/Creatinine Ratio Ur 112.4 ug/mg cr (<30)
--- OUTSIDE RECORDS SUMMARY | 2024-11-13 17:25 | XMS_ITS | Encounter Summary ---
Author Organization [facility] Address [address] [place] [address] Phone Care Team Providers Care Tool Worker Name Role Phone Lindy Buckner MD Primary Care Provider Encounter Details Date Type Department Care Team (Late st Contact Info) Description 06/09/2022 Procedure Pass [facility]oscopy Admitting Dept Virtual Department [address] [place] [id number] Social History Tobacco Use Types Packs/Day Years [...] on filedocumented in this encounter Care Teams Tool Worker Relationship Specialty Start Date End Date Lindy Buckner MD [address] [place] [address] PCP - General Internal Medicine 06/09/22 documented as of this encounter Additional Source Comments The information contained in this document represents components of the legal health record. It is not the complete legal health record.[facility]
--- OUTSIDE RECORDS SUMMARY | 2024-11-13 17:25 | XMS_ITS | Patient Health Record ---
Author Organization Kiko Coats MD Address [address] [place], [place] [address] Care Team Providers Care Asphalt Coater Name Role Phone JakeKiko calabrese Primary Care Provider [phone] Allergies No Known Allergies Results Component Value Reference Range Notes Hemoglobin A1c Reviewed date:01/28/2024 10:57:43 AM Interpretation: Performing Lab: Notes/Report: Hemoglobin A1c 6.1 Complete Blood Count Auto Di ff Reviewed date:11/13/2024 04:28:00 PM Interpretation: Performing Lab:[facility], [address] [place] [phone] Notes/Report: White Blood Count 9.2 4.8-10.8 X10*3/uL [...] 0.0-0.2 /100WBC Neutrophils Absolute Auto 6.4 2.0-8.3 x10*3/uL Imm Gran Abs Auto 0.07 0.00-0.03 X10*3/uL Lymphocytes Absolute Auto 1.5 1.2-4.9 X10*3/uL Monocytes Absolute Auto 0.9 0.1-1.2 X10*3/uL Eosinophils Absolute Auto 0.3 0.0-0.4 X10*3/uL Basophils Absolute Auto 0.1 0.0-0.2 X10*3/uL NRBC Abs Auto 0.000 0.0-0.012 X10*3/uL Comprehensive [place]. Panel Fa st Reviewed date:11/13/2024 04:28:23 PM Interpretation: Performing Lab:[facility], [address] [place] [phone] Notes/Report: Sodium 142 135-145 mmol/L Potassium 3.9 [...] PROFILE Reviewed date:11/13/2024 04:19:48 PM Interpretation: Performing Lab:[address] [address] Notes/Report: Iron 63 45-160 mcg/dL Total Iron Binding Capacity 244 228-428 mcg/dL Percent Iron Saturation 26 15-50 % Unsaturated Iron Binding 181 Lipid Panel Reviewed date:11/13/2024 04:24:20 PM Interpretation: Performing Lab:[address] [address] Notes/Report: Triglycerides 283 <150 mg/dL Desirable Triglyceride: [...] (Free>4and<10) Reviewed date:11/13/2024 04:24:30 PM Interpretation: Performing Lab:[address] [phone] Notes/Report: PSA,Total (Free>4and<10) < 0.10 0.00-4.00 ng/mL [...] Random Reviewed date:11/13/2024 04:25:27 PM Interpretation: Performing Lab:[address] [address] Notes/Report: Creatinine Urine 70.25 Microalbumin Urine 79.0 Microalbum/Creatinine Ratio Ur 112.4 <30 ug/mg cr Albumin/Creatinine Ratio Reference Ranges: Normal: < 30 ug/mg creatinine Microalbuminuria: 30 - 300 ug/mg creatinine Clinical Albuminuria: > 300 ug/mg creatinine Hemoglobin A1c Reviewed date:11/13/2024 04:19:36 PM Interpretation: Performing Lab:[address] [address] Notes/Report: Hemoglobin A1c % 6.3 <6.0 % [...] average glucose, using the formula of the B7M-Cokrbyl Average Glucose study (ADAG), Diabetes Care, Vol.31,#8, Sep. 2007 UA ClnCatch+Micro w/rflx Cul t Reviewed date:11/13/2024 04:28:44 PM Interpretation: Performing Lab:[address] [address] Notes/Report: [id number] 0800 Urine, Clean Catch Color Urine Yellow Appearance Urine Clear PH 7.0 5.0-9.0 Glucose Urine UA >=1000 Negative mg/dL Urine Blood Negative Negative Specific [place] - Urine 1.010 1.005-1.025 Urine Protein Trace [...] date:03/07/2024 12:57:23 PM Interpretation: Performing Lab: Notes/Report: [facility] [address] [place] [address] XRay Report Signed Patient: Mikal Elizondo MR#: [id number] : 1950 Acct:[id number] Age/Sex: 73 / M ADM Date: 03/06/24 Loc: [facility] Attending Dr: Kiko Coats MD Ordering Physician: Kiko Coats MD Date of Service: 03/06/24 Procedure(s): XR chest 2V Accession Number(s): [id number] cc: Kiko Coats MD EXAMINATION: XR CHEST [...] by: Que Lopez MD 03/07/2024 12:12 PM [facility] Dictated By: Que Wilkinson MD Signed By: <Electronically signed by Que Felix MD in OV> 03/07/24 1212 DD/ 1406 TD/TT: 03/06/24 1410 Centrifugal Extractor Operator: [facility] [place] [address] XRay Report Signed Patient: Yadira Elizondo MR#: [id number] : 1950 Acct:[id number] Age/Sex: 73 / M ADM Date: 03/06/24 Loc: [facility] Attending Dr: Kiko Coats MD Ordering Physician: Kiko Coats MD Date of Service: 03/06/24 Procedure(s): XR chest 2V Accession Number(s): [id number] cc: Kiko Coats MD EXAMINATION: XR CHEST [...] by: Que Lopez MD 03/07/2024 12:12 PM [facility] Dictated By: Que Grullon MD Signed By: <Electronically signed by Que Felix MD in OV> 03/07/24 1212 DD/ 1406 TD/TT: 03/06/24 1410 Centrifugal Extractor Operator: Liver Panel Reviewed date:05/05/2024 12:51:46 PM Interpretation: Performing Lab:[facility], [address] [place] [phone] Notes/Report: Bilirubin Total 0.4 0.0-1.0 mg/dL Bilirubin Direct 0.2 0.0-0.5 mg/dL Aspartate Amino Transferase 21 5-37 U/L Alanine Aminotransferase 24 0-40 U/L Total Protein 7.0 6.5-8.0 g/dL Albumin Level 4.0 3.5-5.0 g/dL Alkaline Phosphatase 51 39-117 U/L Glucose Fasting Reviewed date:05/05/2024 12:52:03 PM Interpretation: Performing Lab:[address] [address] Notes/Report: Glucose Fasting 97 60-99 mg/dL Lipid Panel with Reflex Reviewed date:05/05/2024 04:32:27 PM Interpretation: Performing Lab:[address] [address] Notes/Report: Triglycerides 251 <150 mg/dL Desirable Triglyceride: [...] A1c Reviewed date:05/05/2024 11:59:28 AM Interpretation: Performing Lab:[address] [address] Notes/Report: Hemoglobin A1c % 6.1 <6.0 % [...] average glucose, using the formula of the I4J-Uihqyek Average Glucose study (ADAG), Diabetes Care, Vol.31,#8, Sep. 2007 XR clavicle RT Reviewed date:10/17/2024 06:49:30 PM Interpretation: Performing Lab: Notes/Report: [facility] [address] [place] [address] [place] [address] XRay Report Signed Patient: Mikal Elizondo MR#: [id number] : 1950 Acct:[id number] Age/Sex: 74 / M ADM Date: 10/15/24 Loc: HO.[facility] Attending Dr: Isela Reyes PA-C Ordering Physician: ISELA REYES Date of Service: 10/15/24 Procedure(s): XR clavicle RT Accession Number(s): [id number] cc: Kiko Coats MD; ISELA REYES EXAMINATION: XR CLAVICLE, RIGHT CLINICAL INFORMATION: M89.8X1 - Other specified disorders of bone, shoulder COMPARISON: None available. TECHNIQUE: AP views of the right clavicle. FINDINGS: No acute cortical disruption. No lytic or blastic lesions. Degenerative changes in the right shoulder. Focal calcification near the right supraspinatus tendon. Calcified plaque thoracic aortic arch. XR/XR clavicle RT IMPRESSION: No acute fracture. Degenerative changes, right shoulder. Probable calcific tendinosis/tendinopathy, right supraspinatus. Electronically signed by: Que Lopez MD 10/15/2024 09:41 AM EDT Dictated By: Que Wilkinson MD Signed By: <Electronically signed by Que Felix MD in OV> 10/15/24 0941 DD/ 0818 TD/TT: 10/15/24 0920 Centrifugal Extractor Operator: [facility] [address] [place] [address] XRay Report Signed Patient: Yadira Elizondo MR#: [id number] : 1950 Acct:[id number] Age/Sex: 74 / M ADM Date: 10/15/24 Loc: HO.[facility] Attending Dr: Anna Reyes PA-C Ordering Physician: ISELA REYES Date of Service: 10/15/24 Procedure(s): XR cla vicle RT Accession Number(s): [id number] cc: Kiko Coats MD; ISELA REYES EXAMINATION: XR CLAVICLE, RIGHT CLINICAL INFORMATION: M89.8X1 - Other spec ified disorders of bone, shoulder COMPARISON: None available. TECHNIQUE: AP views of the righ t clavicle. FINDINGS: No acute cortical disruption. No lytic or blastic lesions. Degenerative changes in the right shoulder. Focal calcification near the right supraspinatus tendon. Calcified plaque tho racic aortic arch. X R/XR clavicle RT IMPRESSION: No acute fracture. Degenerative changes , right shoulder. Probable calcific tendinosis/tendinopathy, right supraspinatus. Electronically emy d by: Que Lopez MD 10/15/2024 09:41 AM EDT RP Dictated By: Que Grullon MD Signed By: <Electronically signed by Que Felix MD in OV> 10/15/[address] DD/ 7 TD/TT: 10/15/24919 Centrifugal Extractor Operator: Reason For Referral Reason please zenia fernandes Diagnosis 1 Esophageal ulcer wit hout bleeding (K22.10) Referral Organization Kiko Coats MD Referring Provider First Name Kiko Referring Provider Last Name Jorge L Referring Provider Speciality Internal M edicine Referred Provider [facility] , [facility] Referred Provider Specialty Gastroentero [...] Once a day for 30 days 07/24/2024 Not-Takin g Sucralfate 1 GM 1 tablet on an empty stomach Orally 4 times a day for 30 days 09/22/2024 Active Meloxicam 15 MG TAKE 1 TABLET BY DEBORAH ONCE A DAY AFTER A MEAL for 30 Active Jardiance 10 MG 1 tablet Orally [...] 11/19/2012 Administered flu vac giv en at [facility] Fluarix Quadrivalent IM Intramuscular 11/14/2013 Administe red Fluarix Quadrivalent IM Intramuscular 12/14/2014 [facility] red Prevnar 13 Unknown 07/22/2014 [facility]ered [facility] [place] PPSV23 (Pnemovax) IM Intramuscular 10/11/2015 Administered Fluarix Quadrivalent IM Intramuscular 10/26/2015 [facility] smiley Shingles Unknown 11/04/2012 Administered done at the [facility] Fluarix Quadrivalent IM Intramuscular 01/19/2017 Adm[facility] red Fluarix Quadrivalent IM Intramuscular 12/03/2017 [facility] smiley TDaP Unknown 07/30/2006 Administered At the [facility] Fluarix Quadrivalent IM Intramuscular 11/05/2018 [facility] smiley pt was given the vaccine at the [facility]. Influenza High Dose Unknown 11/04/2019 [facility]ered [facility] Unknown 11/04/2019 [facility]ered [facility] Unknown 02/25/2020 [facility]ered [facility] SARS-COV-2 Moderna Unknown 03/31/2020 Administered SARS-COV-2 Moderna Unknown 04/28/2020 Administered Influenza High Dose IM Intramuscular 11/15/2020 Administer ed SARS-COV-2 Pfizer Unknown 01/10/2021 Administered Influenza High Dose IM Intramuscular 11/18/2021 Administer ed Influenza High Dose IM Intramuscular 03/08/2023 Administer ed Influenza High Dose IM Intramuscular 11/05/2023 Administer ed Influenza High Dose IM Intramuscular 11/13/2024 Administer ed Flu Vaccine Unknown 11/14/2013 Pending [...] Status Risk Notes Problem Carotid artery disease (915874773) Carotid artery disease (I77.9) Active confirmed Problem Dysphagia (14864107) Dysphagia (R13.10) Active confirmed Problem 883037942 Hypomagnesemia (E83.42) Active confirmed Problem 07615269 Hypercalcemia (E83.52) Active confirmed Problem 79405685 Other chronic pa in (G89.29) Active confirmed Problem 8580031 Panlobular emphysema (J43.1) Active confirmed Problem 445042663184557 Erectile dysfunction due to arterial insufficiency (N52.01) Active confirmed Problem 884126694 Lumbar disc disease (M51.9) Active confirmed Problem 78715263 Essential hypertension (I10) Active confirmed Problem 568505801 Prostate cancer (C61) Active confirmed Problem Psoriasis (6563469) Psoriasis (L40.9) Active co nfirmed Problem 62076914 Type 2 diabetes mellitus without complication (E11.9) Active confirmed Problem 61721482 Abdominal aortic aneurysm without rupture (I71.4) Active confirmed Problem 600777056 Low HDL (under 4 0) (E78.6) Active confirmed Problem 066310955 Anemia, unspecified anemia type (D64.9) Active confirmed Problem 488044937 High triglycerid es (E78.1) Active confirmed Problem 697859503 Cervical disc disease (M50.90) Active confirmed Problem 69380376 Intrinsic eczema (L20.84) Active confirmed Problem 363710382 Raynauds disease without gangrene (I73.00) Active confirmed Problem 742237571 COPD exacerbatio n (J44.1) Active confirmed Problem Atherosclerosis (81104949) Atherosclerosis (I70.90) Active confirmed Problem Leukocytosis (409813008) Elevated WBC count (D72.829) Active confirmed Problem 526740530 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) Active confirmed Problem 580467364 Nodule of tongue (R22.0) Active confirmed Problem 63296577 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) Active confirmed Problem 898598389 COPD with exacerbation (J44.1) Active confirmed Problem 3561940695854662 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) Active confirmed Problem 730112564 Low blood magnesium (R79.0) Active confirmed Problem 991670029 Age-related incipient cataract of both eyes (H25.093) Active confirmed Problem 907308999 Arthritis, 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) Active confirmed Problem Ulcer of esophagus (96099796) Esophageal ulcer without bleeding (K22.10) Active confirmed Vital Signs Blood pressure diastolic 50 mm Hg 08/04/2024 rio ght is down 2 pounds since 05-09-24 Height 70 in 08/04/2024 weight is down 2 pounds since 05-09-24 Blood pressure systolic 140 mm Hg 08/04/2024 weig ht is down 2 pounds since 05-09-24 Weight 176 lbs 08/04/2024 weight is down 2 pounds since 05-09-24 BMI 25.25 kg/m2 08/04/2024 weight is down 2 pounds since 05-09-24 Encounters Encounter Location Date Provider Diagnosis Kiko Coats MD [address] [place] [id number] 12/24/2023 Kiko Coats Spinal stenosis of lumbar region with neurogenic claudication M48.062 ; Cervicalgia M54.2 and Other chronic pain G89.29 Kiko Coats MD [address] [place] [id number] 11/13/2024 Kiko Coats Type 2 diabetes mellitus without complication E11.9 ; Essential hypertension I10 ; Low HDL (under 40) E78.6 ; Anemia, unspecified anemia type D64.9 ; High triglycerides E78.1 and Encounter for administration of vaccine Z23 Kiko Coats MD [address] [place] [id number] 11/23/2023 Kiko Coats Lumbar disc disease M51.9 Kiko Coats MD [address] [place] [id number] 01/28/2024 Kiko Coats Type 2 diabetes mellitus without complication E11.9 ; Skin lesion L98.9 and Panlobular emphysema J43.1 Kiko Coats MD [address] [place] [id number] 02/25/2024 Kiko Coats COPD with exacerbati on J44.1 Kiko Coats MD [address] [place] [id number] 03/06/2024 Kiko Coats Lumbar disc disease M51.9 and Bronchitis J40 Kiko Coats MD [address] [place] [id number] 05/09/2024 Kiko Coats Panlobular emphysema J43.1 ; Type 2 diabetes mellitus without complication E11.9 and Low HDL (under 40) E78.6 Kiko Coats MD [address] [place] [id number] 08/04/2024 Kiko Coats Esophageal ulcer without bleeding K22.10 ; Panlobular emphysema J43.1 and Essential hypertension I10 Kiko Coats MD [address] [place] [id number] 11/26/2023 Kiko Coats MD [address] [place] [id number] 11/26/2023 Kiko Coats MD [address] [place] [id number] 03/14/2024 Kiko Coats Lumbar disc disease M51.9 Kiko Coats MD [address] [place] [id number] 07/24/2024 Kiko Coats MD [address] [place] [id number] 07/31/2024 Kiko Coats MD [address] [place] [id number] 09/19/2024 Kiko Coats MD [address] [place] [id number] 10/07/2024 Kiko Coats MD [address] [place] [id number] 11/07/2024 Kiko Coats Assessments Encounter Date Diagnosis (ICD Code) Assessment Notes Treatment Notes Treatment Clinical Notes Section Notes 12/24/2023 Spinal stenosis of lumbar region with neurogenic claudication (ICD-10 - M48.062) send for note from dr cisneros/ request for records sent 12/24/2023 Cervicalgia (ICD-10 - M54.2) the pain is consistent with his arthritis and does not appear that xrays are indicated at present tome 11/13/2024 Type 2 diabetes mellitus without complication (ICD-10 - E11.9) 11/13/2024 Essential hypertension (ICD-10 - I10) 11/23/2023 Lumbar disc disease (ICD-10 - M51.9) [...] directions for use. x-ray order faxed to [facility] 05/09/2024 Panlobular emphysema (ICD-10 - J43.1) doing well using his updrafts once a day, will continue current regiment 08/04/2024 Esophageal ulcer without bleeding (ICD-10 - K22.10) need results of biopsy/ will send for results 03/14/2024 Lumbar disc disease (ICD-10 - M51.9) 12/24/2023 Other chronic pain (ICD-10 - G89.29) 11/13/2024 Low HDL (under 40) (ICD-10 - E78.6) 01/28/2024 Panlobular emphysema (ICD-10 - J43.1) doing well 05/09/2024 Type 2 diabetes mellitus without complication (ICD-10 - E11.9) doing well, will contnue curent rgiment 08/04/2024 Panlobular emphysema (ICD-10 - J43.1) stable 11/13/2024 Anemia, unspecified anemia type (ICD-10 - D64.9) 05/09/2024 Low HDL (under 40) (ICD-10 - E78.6) stable, will cpntnue current regiment 08/04/2024 Essential hypertension (ICD-10 - I10) well contrlolled 11/13/2024 High triglycerides (ICD-10 - E78.1) 11/13/2024 Encounter for administration of vaccine (ICD-10 - Z23) Plan Of Treatment Pending Test Test Name [...] min 3V 2022 Next Appt Details Provider Name:Kikovika De Leon ier, 11/17/2024 10:30:00 AM, [address] [place] [address], [address], [place], [place], [phone], Insurance Providers Payer Name Payer Address Payer Phone Subscriber Number Group Number Insured Name Patient Relationship to Insured Coverage Start Date Coverage End Date [employer] [address] [place] [address] [id number] Mikal Elizondo Self - patient is the insured [employer] B[employer]EFIT PLAN [address] [place] [address] [phone] [id number] Mikal Elizondo Self - patient is the insured Medical (General) History Medical History History ICD Code esophageal stricture hypercholesterolemia hypertension asthma - mild intermittent colonoscopy 02/2014 and [facility] probably not able to access those records but will be followed by them. possibly someone in [facility] did it colonoscopy and endoscopy 2022
--- OUTSIDE RECORDS SUMMARY | 2024-11-13 17:25 | XMS_ITS | Data Portability ---
Author Organization [place] [facility] [place] [facility], [facility] Address [address] [place] [address] Care Team Providers Care Case Assembler Name Role Phone EMMANUEL COPELAND Primary Care Provider Assessment Encounter Date Assessment Date Assessment LastModified [...] but who did not see the patient. [email or web address] Not available 10/24/2023 08:54:50 01/23/2024 01/23/2024 I am seeing the patient today under the supervision of Dr Rivera who was available but who did not see the patient. jozzie Not available 01/23/2024 08:52:26 04/23/2024 04/23/2024 I [...] note. Patient will follow up as directed. Not available 04/23/2024 08:51:23 07/23/2024 07/23/2024 I am seeing the patient today under the supervision of Dr Rivera who was available but who did not see the patient. Not available 07/23/2024 07:40:19 Plan of Treatment Reminders Order Date Submit Date Provider Last Modified By Organization Details Last Modified Time Details Appointments None recorded. Lab None recorded. Referral None recorded. Procedures None recorded. Surgeries None recorded. Imaging None recorded. Medication Orders meloxicam 15 mg tablet 2024 025 [email or web address] [id number], [id number] [place], [address], 5 10:49:41 Patient TargetsNo targets recorded. 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 Procedures Surgical History Date Name Laterality Status Provider Name and Address Organization Details Recorded Time 5 JZShoulder INJ completed Chad Hunter PA-C [address], [place], [address], [facility] 07/23/2024 07:40:15 5 JZShoulder INJ completed Chad Hunter PA-C [address], [place], [address], [facility] 04/23/2024 08:51:15 4 JZShoulder INJ completed Chad Hunter PA-C [address], [place], [address], [facility] 01/23/2024 08:52:21 4 JZShoulder INJ completed Chad Hunter PA-C [address] [facility], [place], [address], [facility] 10/24/2023 08:54:24 4 JZCMC Inj completed Chad Hunter PA-C [address] [facility], [place], [address], [facility] 10/24/2023 08:54:34 4 JZShoulder INJ completed Chad Hunter PA-C [address] [facility], [place], [address], [facility] 07/26/2023 13:08:59 Imaging Results None recorded. Procedure Notes None [...] Not Available Not Available No t Available rabeprazole 20 mg tablet,mulugeta yed release TAKE 1 TABLET BY MOUTH TWICE A DAY FOR 30 DAYS active Not Available Not Available No t Available doxycycline hyclate 100 mg capsule TAKE 1 CAPSULE BY MOUTH TWICE A DAY FOR 10 DAYS 07/23 completed Not Available Not Available Not Available ipratropium 0.5 mg-albutero l 3 mg (2.5 mg base)/3 mL nebulizatio n soln INHALE 1 VIAL VIA NEBULIZER EVERY 4 HOURS NEEDED active Not Available Not Available No t Available meloxicam 15 mg tablet TAKE 1 TABLET BY MOUTH ONCE A DAY AFTER A MEAL 2024 active Not Available Not Available Not Avai lable sucralfate 1 gram tablet TAKE 1 TABLET BY MOUTH 4 TIMES A DAY,X30 DAYS active Not Available Not Available No t Available lisinopril 20 mg tablet TAKE 1 TABLET BY MOUTH EVERY DAY active Not Available Not Available No t Available famotidine 40 mg tablet active Not Available Not Available Not Available codeine sulfate 15 mg tablet TAKE 1 TABLET BY MOUTH FOUR TIMES A DAY FOR 10 DAYS NEEDED 07/23 completed Not Available Not Available Not Available levofloxaci n 250 mg tablet TAKE [...] BY MOUTH EVERY DAY FOR 10 DAYS 07/23 completed Not Available Not Available Not Available Hibiclens 4 % topical liquid USE [...] TABLET BY MOUTH EVERY 8 HOURS NEEDED 07/23 completed Not Available Not Available Not Available Vitals Date Recorded Body height Body mass index (BMI) Body weight Provider Name and Address Organization Details Last Updated DateTime 04/23/2024 177.8 cm 23.7 kg/m2 66720.74 g [facility] 04/23/2024 08:28:45 Date Recorded Body height Body mass index (BMI) Body weight Provider Name and Address Organization Details Last Updated DateTime 07/23/2024 177.8 cm 23.7 kg/m2 13664.74 g [facility] 07/23/2024 07:27:11 Date Recorded Body height Body mass index (BMI) Body weight Provider Name and Address Organization Details Last Updated DateTime 07/26/2023 177.8 cm 23.7 kg/m2 78081.74 g Merced Curtis [facility] 07/26/2023 13:05:11 Date Recorded Body height Body mass index (BMI) Body weight Provider Name and Address Organization Details Last Updated DateTime 10/24/2023 177.8 cm 23.7 kg/m2 90751.74 g Bayron Gaffney [facility] 10/24/2023 08:48:57 Date Recorded Body height Body mass index (BMI) Body weight Provider Name and Address Organization Details Last Updated DateTime 01/23/2024 177.8 cm 23.7 kg/m2 71961.74 g Bayron Gaffney [facility] 01/23/2024 08:49:29 Social History None recorded. Functional Status None recorded. Mental Status None recorded. Family History Nothing Reported. Medical History No medical history recorded. Past Encounters Encounter ID Performer Location Encounter Start Date Encounter Closed Date Diagnosis/Indication Diagnosis SNOMED-CT Code Diagnosis ICD10 Code Diagnosis IMO Codes Diagnosis Note [id number] GUERDA Dawson [address] [place] [address] 07/26/2023 12:43:37 08/20/2023 13:07:39 Impingement syndrome of left shoulder region 4050350188 43174 M75.42 [id number] GUERDA Dawson [address] [place] [address] 10/24/2023 08:42:15 11/19/2023 13:35:25 Impingement syndrome of left shoulder region 6310923560 77631 M75.42 Osteoarthr osis of the carpometacarpal joint of the thumb 46705574 M18.9 [id number] GUERDA Dawson [address] [place] [address] 01/23/2024 08:45:15 02/19/2024 07:48:29 Impingement syndrome of left shoulder region 7845094956 07924 M75.42 [id number] GUERDA [facility] [address] [place] [address] 04/23/2024 08:18:47 05/09/2024 12:39:46 Impingement syndrome of left shoulder region 9085617634 44367 M75.42 [id number] GUERDA Dawson [facility] [place] [address] [place] [address] 07/23/2024 07:22:30 08/04/2024 13:32:23 Impingement syndrome of left shoulder region 4715058986 03251 M75.42 Health Concerns Section Related Observation LastModified by Organization Detai ls LastModified Time None Recorded Concern Status LastModified by Organization Details LastModified Time None Recorded Advance Directives Directive None Recorded Payers Insurance Date Sequence Insurance Name Policy Number Policy Eckert Covered Member ID Eckert Member ID Guarantor Name 07/20/2024 1 [place] [employer] Mikal Elizondo [id number] Mikal Elizondo 08/04/2024 2 [employer] (POS) [id number] Mikal Elizondo [id number] Mikal Elizondo 09/07/2023 2 UNSPECIFIED REMIT PAYOR Mikal Elizondo
--- OUTSIDE RECORDS SUMMARY | 2024-11-13 17:25 | XMS_ITS | Encounter Summary ---
Author Organization [facility] Address [address] [place] [address] Phone Care Team Providers Care Ground Worker Name Role Phone Lindy Buckner MD Primary Care Provider Encounter Details Date Type Department Care Team (Late st Contact Info) Description 08/10/2022 Procedure Pass [facility] Endoscopy Admitting Dept Virtual Department [address] [place] [address] Social History Tobacco Use Types Packs/Day Years [...] on filedocumented in this encounter Care Teams Ground Worker Relationship Specialty Start Date End Date Lindy Buckner MD [address] [place] [address] PCP - General Internal Medicine 06/09/22 documented as of this encounter Additional Source Comments The information contained in this document represents components of the legal health record. It is not the complete legal health record.[facility]
--- OUTSIDE RECORDS SUMMARY | 2024-11-13 17:25 | XMS_ITS | Patient Health Record ---
Author Organization [facility] Address [address] [place] [address] Support Name Relationship Address Phone QUENTIN DENNY Guarantor Unknown [phone] Reason For Referral No Information Plan Of Treatment No Information
--- OUTSIDE RECORDS SUMMARY | 2024-11-13 17:25 | XMS_ITS | Encounter Summary ---
Author Organization [facility] Address [address] [place] [address] Phone Care Team Providers Care Transit Survey Worker Name Role Phone Lindy Buckner MD Primary Care Provider Encounter Details Date Type Department Care Team (Late st Contact Info) Description 03/02/2023 Procedure Pass [facility] Endoscopy Admitting Dept Virtual Department [address] [place] [address] Social History Tobacco Use Types Packs/Day Years [...] on filedocumented in this encounter Care Teams Transit Survey Worker Relationship Specialty Start Date End Date Lindy Buckner MD [address] [place] [address] PCP - General Internal Medicine 06/09/22 documented as of this encounter Additional Source Comments The information contained in this document represents components of the legal health record. It is not the complete legal health record.[facility]
--- OUTSIDE RECORDS SUMMARY | 2024-11-13 17:26 | XMS_ITS | Clinical Summary ---
Author Organization [facility] Address [address] [place] [address] Phone Care Team Providers Care Repairer Veneer Sheet Name Role Phone Lindy Buckner MD Primary Care Provider [phone] Allergies Active Allergy Reactions Criticality Noted Date [...] VACCINE (1 - 1-dose 75+ series) 2023 INFLUENZA VACCINE (#1) 2024 , 11/18/2021, 11/15/2020, Additional history exists COVID-19 VACCINE ( season) 2024 01/10/2021 PNEUMOCOCCAL VACCINES (50+ years) Completed 05/06/2018, [...] this topic Medical Devices Implanted Type Area Stab Setter And Driller Device Identifier Shelf Expiration Date Model / Serial / Lot Left Knee Insurance [facility] Care Teams Repairer Veneer Sheet Relationship Specialty Start Date End Date Lindy Buckner MD [address] [place] [address] PCP - General Internal Medicine 06/09/22 Additional Source Comments The information contained in this document represents components of the legal health record. It is not the complete legal health record.[facility]
--- OUTSIDE RECORDS SUMMARY | 2024-11-13 17:26 | XMS_ITS | Encounter Summary ---
Author Organization [facility] Address [address] [facility] [address] [place] [address] Phone Care Team Providers Care 3D Modeler Name Role Phone Lindy Buckner MD Primary Care Provider Encounter Details Date Type Department Care Team (Late st Contact Info) Description 04/13/2023 Procedure Pass [facility]oscopy Admitting Dept Virtual Department [address] [place] [address] Social History Tobacco Use Types Packs/Day Years [...] on filedocumented in this encounter Care Teams 3D Modeler Relationship Specialty Start Date End Date Lindy Buckner MD [address] [place] [address] PCP - General Internal Medicine 06/09/22 documented as of this encounter Additional Source Comments The information contained in this document represents components of the legal health record. It is not the complete legal health record.[facility]
== END 2024-11-13 12:37 | disposition home or self-care (01) ==
LOC: HO.LNP 12:36
PROVIDERS: Visit Provider Internal Medicine
DX: Z12.5 Encounter for screening for malignant neoplasm of prostate (principal); E11.9 Type 2 diabetes mellitus without complications; I10 Essential (primary) hypertension; E78.6 Lipoprotein deficiency; E78.1 Pure hyperglyceridemia; D64.9 Anemia, unspecified
CPT/HCPCS: 80053; 80061; 81001; 82043; 82570; 83036; 83540; 84153; 85025

== ENCOUNTER 2024-12-25 13:44 | Emergency (ER) | payer MEDICARE, OTHER, SELFPAY ==
--- OUTSIDE RECORDS SUMMARY | 2024-07-24 08:44 | XMS_ITS ---
Author Organization Kiko Coats MD Address [address] [place] [phone] Care Team Providers Care Global Climate Change Analyst Name Role Phone Kiko Coats Primary Care Provider [phone] REASON FOR VISIT refill tramadol Medications Medication SIG (Take, Route, Fr equency, Duration) Notes Start Date End Date Status traMADol HCl 50 MG 2 tabs as needed Ora lly Once a day for 30 days 07/24/2024 Active Encounters Encounter Location Date Provider Diagnosis Kiko Coats MD [address] [place] [phone] 07/24/2024 Kiko Coats Plan Of Treatment Medication Medication Name Sig Start Date Stop Date Notes traMADol HCl 50 MG 2 tabs as needed Ora lly Once a day for 30 days 07/24/2024 Next Appt Details Provider Name:Kiko De Leon ier, 05/14/2025 07:45:00 AM, [address] [place] [address], [address], [place], [place], [phone], Provider Name:Kiko De Leon ier, 05/21/2025 09:00:00 AM, [address] [place] [address], [address], [place], [place], [phone], Provider Name:Kiko De Leon ier, 12/10/2025 07:15:00 AM, [address] [place] [address], Suite [facility], [place], [place], [phone], Provider Name:Kkio De Leon ier, 12/17/2025 09:30:00 AM, [address] [place] [address], Suite [facility], [place], [place], [phone], Progress Notes * Mikal DENNYDOB: [birth year] (74 yo M)Acc No.[id number]:07/24/2024 Patient: Mikal VITALE :1950 A ge:74 Y S ex:Male Address:[address], [place] [address] * Refills Refill traMADol HCl Tablet, 50 MG, Orally, 60, 2 tabs as needed, Once a day, 30 days, Refills=0 * true * Date: Generated for Maryam fontaine/Pamela/Traciesmitting on: 02/25/2024 06:18 PM EST
--- OUTSIDE RECORDS SUMMARY | 2024-07-31 04:04 | XMS_ITS ---
Author Organization Kiko Coats MD Address [address] [place] [phone] Care Team Providers Care Animal Husbandman Name Role Phone Jorge L Kiko Primary Care Provider [phone] REASON FOR VISIT Discharge summary rec'd Encounters Encounter Location Date Provider Diagnosis Kiko Coats MD [address] [place] [address] [place] [phone] 07/31/2024 Kiko Coats Plan Of Treatment Next Appt Details Provider Name:Kiko chatman, 05/14/2025 07:45:00 AM, [address] [place] [address], [address], [phone], Provider Name:Kiko chatman, 05/21/2025 09:00:00 AM, [address] [place] [address], [address], [phone], Provider Name:Kiko De Leon ier, 12/10/2025 07:15:00 AM, [address], [address], [place], [phone], Provider Name:Kiko De Leon ier, 12/17/2025 09:30:00 AM, [address], [address], [place], [phone], Progress Notes * Mikal DENNYDOB: [birth year] (74 yo M)Acc No.[id number]:07/31/2024 Patient: Mikal VITALE :1950 A ge:74 Y S ex:Male Address:[address], [place] [address] * true * Date: Generated for Maryam fontaine/Pamela/Traciesmitting on: 02/25/2024 06:18 PM EST
--- OUTSIDE RECORDS SUMMARY | 2024-08-04 09:30 | XMS_ITS ---
Author Organization Kiko Coats MD Address [address] [place], [place] [id number] Care Team Providers Care Field Sales Manager Name Role Phone Kiko Coats Primary Care Provider [phone] Allergies No Known Allergies REASON FOR VISIT [...] Status Risk Notes Problem Ulcer of esophagus (99842876) Esophageal ulcer without bleeding (K22.10) Active confirmed Vital Signs Blood pressure systolic 140 mm Hg 08/05/19 25 Blood pressure diastolic 50 mm Hg 025 Height 70 in 08/04/2024 Weight 176 lbs 08/04/2024 BMI 25.25 kg/m2 08/04/2024 weight is down 2 pounds [facility] e 05-09-24 Encounters Encounter Location Date Provider Diagnosis Kiko Coats MD [address] [place], [place] [phone] 08/04/2024 Kiko Coats Esophageal ulcer without bleeding [...] Provider Name:Kiko chatman, 05/14/2025 07:45:00 AM, [address], [address], [place], [place], [phone], Provider Name:Kiko chatman, 05/21/2025 09:00:00 AM, [address], [address], [place], [place], [id number], Provider Name:Kiko De Leon ier, 12/10/2025 07:15:00 AM, [address] [place] [address], Suite [facility], [place], [place], [phone], Provider Name:Kiko De Leon ier, 12/17/2025 09:30:00 AM, [address] [place] [address], Suite [facility], [place], [place], [phone], Progress Notes * Mikal DENNYDOB: [birth year] (74 yo M)Acc No.[id number]:08/04/2024 Patient: Mikal VITALE Provider: La Coats MD :1950 A ge:74 Y S ex:Male Date:08/04/2024 Address:[address], [facility] Subjective: * Chief Complaints: * P H/TcM [...] 0 08/04/2024 Generated for Maryam fontaine/Pamela/Tishitting on: 02/25/2024 06:16 PM EST History and Physical Notes * [...]
--- OUTSIDE RECORDS SUMMARY | 2024-09-19 09:15 | XMS_ITS ---
Author Organization Kiko Coats MD Address [address] [place], [place] [phone] Care Team Providers Care Porcelain Enameler Name Role Phone Kiko Coats Primary Care Provider [phone] REASON FOR VISIT refill Medications Medication SIG [...] Date Provider Diagnosis Kiko Coats MD [address] [place], [place] [phone] 09/19/2024 Kiko Coats Plan Of Treatment Medication [...] Name:Kiko De Leon ier, 05/14/2025 07:45:00 AM, [address] [place] [address], [place] [address], [place], [place], [phone], Provider Name:Kiko De Leon ier, 05/21/2025 09:00:00 AM, [address] [place] [address], [place] [address], [place], [place], [phone], Provider Name:Kiko De Leon ier, 12/10/2025 07:15:00 AM, [address] [place] [address], [place] [address], [place], [place], [phone], Provider Name:Kiko De Leon ier, 12/17/2025 09:30:00 AM, [address] [place] [address], [address], [phone], Progress Notes * Mikal DENNYDOB: [birth year] (74 yo M)Acc No.[id number]:09/19/2024 Patient: Mikal VITALE :1950 A ge:74 Y S ex:Male Address:[address] [place] [address] * Refills Start RABEprazole Sodium Tablet Delayed Release, 20 MG, Orally, 30, 1 tablet 1/2 to 1 hour before a meal, Once a day, 30 day(s) Start Sucralfate Tablet, 1 GM, Orally, 120 Tablet, 1 tablet on an empty stomach, 4 times a day, 30 days * true * Date: Generated for Maryam fnotaine/Pamela/Trvais on: 02/25/2024 06:16 PM EST
--- OUTSIDE RECORDS SUMMARY | 2024-10-07 08:38 | XMS_ITS ---
Author Organization Kiko Coats MD Address [address] [place] [phone] Care Team Providers Care Physiotherapist'S Assistant Name Role Phone Kiko Coats Primary Care Provider REASON FOR VISIT refill Medications Medication SIG (Take, Route, Frequency, Duration) Notes Start Date End Date Status RABEprazole Sodium 20 MG 1 tablet 1/2 to 1 hour before a meal Orally Once a day for 90 days 09/22/2024 Active Encounters Encounter Location Date Provider Diagnosis Kiko Coats MD [address] [place] [phone] 10/07/2024 Kiko Coats Plan Of Treatment Medication Medication Name Sig Start Date Stop Date Notes RABEprazole Sodium 20 MG 1 tablet 1/2 to 1 hour before a meal Orally Once a day for 90 days 09/22/2024 Next Appt Details Provider Name:Kiko De Leon ier, 05/14/2025 07:45:00 AM, [address] [place] [address], [address], [place], [place], [phone], Provider Name:Kiko De Leon ier, 05/21/2025 09:00:00 AM, [address] [place] [address], Suite [facility], [place], [place], [phone], Provider Name:Kiko De Leon ier, 12/10/2025 07:15:00 AM, [address] [place] [address], Suite [facility], [place], [place], [phone], Provider Name:Kiko De Leon ier, 12/17/2025 09:30:00 AM, [address] [place] [address], [place] [address], [place], [place], [phone], Progress Notes * Mikal DENNYDOB: [birth year] (74 yo M)Acc No.[id number]:10/07/2024 Patient: Mikal VITALE :1950 A ge:74 Y S ex:Male Address:[address], [place] [address] * Refills Refill RABEprazole Sodium Tablet Delayed Release, 20 MG, Orally, 90, 1 tablet 1/2 to 1 hour before a meal, Once a day, 90 days, Refills=0 * true * Date: Generated for Maryam fontaine/Pamela/Tishitting on: 02/25/2024 06:18 PM EST
--- OUTSIDE RECORDS SUMMARY | 2024-11-07 05:45 | XMS_ITS ---
Author Organization Kiko Coats MD Address [address] [place] [phone] Care Team Providers Care Chemical Handler Name Role Phone Kiko Coats Primary Care Provider REASON FOR VISIT RE: Annual Patient Experience Survey Encounters Encounter Location Date Provider Diagnosis Kiko Coats MD [address] [place] [address] [address] [place] [phone] 11/07/2024 Kiko Coats Plan Of Treatment Next Appt Details Provider Name:Kiko chatman, 05/14/2025 07:45:00 AM, [address] [place] [address], [address], [phone], Provider Name:Kiko chatman, 05/21/2025 09:00:00 AM, [address] [place] [address], [address], [phone], Provider Name:Kiko De Leon ier, 12/10/2025 07:15:00 AM, [address], [address], [place], [phone], Provider Name:Kiko De Leon ier, 12/17/2025 09:30:00 AM, [address], [address], [place], [place], [phone], Progress Notes * Mikal DENNYDOB: [birth year] (74 yo M)Acc No.[id number]:11/07/2024 Patient: Mikal VITALE :1950 A ge:74 Y S ex:Male Address:[address], [place] [address] * true * Date: Generated for Maryam fontaine/Pamela/Traciesmitting on: 02/25/2024 06:18 PM EST
--- OUTSIDE RECORDS SUMMARY | 2024-11-13 03:00 | XMS_ITS ---
Author Organization Kiko Coats MD Address [address] [place], [place] [id number] Care Team Providers Care Supervisor Nutritional Yeast Name Role Phone Jorge LTian Primary Care Provider Results Component Value Reference Range Notes Complete Blood Count Auto Di ff Reviewed date:11/13/2024 04:28:00 PM Interpretation: Performing Lab:[facility], [address] [place] [phone] Notes/Report: White Blood Count 9.2 4.8-10.8 X10*3/uL [...] NRBC Abs Auto 0.000 0.0-0.012 X10*3/uL Comprehensive [place]. Panel Fa st Reviewed date:11/13/2024 04:28:23 PM Interpretation: Performing Lab:[facility], [address] [place] [phone] Notes/Report: Sodium 142 135-145 mmol/L Potassium 3.9 [...] PROFILE Reviewed date:11/13/2024 04:19:48 PM Interpretation: Performing Lab:[facility], [address] [place] [phone] Notes/Report: Iron 63 45-160 mcg/dL Total Iron Binding Capacity 244 228-428 mcg/d L Percent Iron Saturation 26 15-50 % Unsaturated Iron Binding 181 Lipid Panel Reviewed date:11/13/2024 04:24:20 PM Interpretation: Performing Lab:[facility], [address] [place] [phone] Notes/Report: Triglycerides 283 <150 mg/dL Desirable Triglyceride: [...] (Free>4and<10) Reviewed date:11/13/2024 04:24:30 PM Interpretation: Performing Lab:[address] [phone] Notes/Report: PSA,Total (Free>4and<10) < 0.10 0.00-4.00 ng/mL [...] Random Reviewed date:11/13/2024 04:25:27 PM Interpretation: Performing Lab:[address] [phone] Notes/Report: Creatinine Urine 70.25 Microalbumin Urine 79.0 Microalbum/Creatinine Ratio Ur 112.4 <30 ug/mg cr Albumin/Creatinine Ratio Reference Ranges: Normal: < 30 ug/mg creatinine Microalbuminuria: 30 - 300 ug/mg creatinine Clinical Albuminuria: > 300 ug/mg creatinine Hemoglobin A1c Reviewed date:11/13/2024 04:19:36 PM Interpretation: Performing Lab:[address] [phone] Notes/Report: Hemoglobin A1c % 6.3 <6.0 % [...] average glucose, using the formula of the D7N-Eyguefz Average Glucose study (ADAG), Diabetes Care, Vol.31,#8, Sep. 2007 UA ClnCatch+Micro w/rflx Cul t Reviewed date:11/13/2024 04:28:44 PM Interpretation: Performing Lab:[address] [address] Notes/Report: [id number] 0800 Urine, Clean Catch Color Urine Yellow Appearance Urine Clear PH 7.0 5.0-9.0 Glucose Urine UA >=1000 Negative mg/dL Urine Blood Negative Negative Specific [place] - Urine 1.010 1.005-1.025 Urine Protein Trace [...] Location Date Provider Diagnosis Kiko Coats MD [address] [place] [phone] 11/13/2024 Kiko Coats Type 2 diabetes mellitus [...] Details Provider Name:Kiko chatman, 05/14/2025 07:45:00 AM, [address] [place] [address], [address], [phone], Provider Name:Kiko chatman, 05/21/2025 09:00:00 AM, [address] [place] [address], [address], [phone], Provider Name:Kiko chatman, 12/10/2025 07:15:00 AM, [address] [place] [address], [address], [phone], Provider Name:Kiko chatman, 12/17/2025 09:30:00 AM, [address] [place] [address], [phone], Progress Notes * Mikal DENNYDOB: [birth year] (74 yo M)Acc No.[id number]:11/13/2024 Progress Note Patient: Mikal VITALE Provider: La Coats MD :1950 A ge:74 Y S ex:Male Date:11/13/2024 Address:[address] [facility], [id number] Subjective: * Chief Complaints: * 1 . [...] - 11/13/2024 08:00 AM) L AB: Comprehensive [place]. Panel Fast (Collection Date & Time - [...] - 11/13/2024 08:00 AM) L AB: Comprehensive [place]. Panel Fast (Collection Date & Time - [...] - 11/13/2024 08:00 AM) L AB: Comprehensive [place]. Panel Fast (Collection Date & Time - [...] - 11/13/2024 08:00 AM) L AB: Comprehensive [place]. Panel Fast (Collection Date & Time - [...] * Procedure Codes: 3 6415 VENIPUNCT, ROUTINE*, 05937 FLU VACC PRSV FREE INC ANTIG, G0008 ADMN FLU VAC NO FEE SCHED SAME DAY * * The named appointment provid er may or may not be the originator of this progress note, and it is not deemed complete until electronically signed by the appointment provider. Sign off status: Pending * Provider: La Coats MD Date: 0 11/13/2024 Generated for Maryam fontaine/Pamela/Travis on: 02/25/2024 06:16 PM EST
--- OUTSIDE RECORDS SUMMARY | 2024-11-17 05:30 | XMS_ITS ---
Author Organization Kiko Coats MD Address [address] [place], [place] [phone] Care Team Providers Care Tape Duplicator Name Role Phone Kiko Coats Primary Care Provider [phone] Allergies No Known Allergies REASON FOR VISIT [...] kg/m2 11/17/2024 weight is down 3 pounds [facility] 08-04-24 Encounters Encounter Location Date Provider Diagnosis Kiko Coats MD [address] [place] [address] [place] [phone] 11/17/2024 Kiko Coats Panlobular emphysema J43.1 ; [...] 30 days Ketoconazole 2 % 1 application Regasification Plant Operator ally Once a day for 30 days [...] Reason: Provider Name:Kiko chatman, 05/14/2025 07:45:00 AM, [address] [place] [address], [address], [place], [phone], Provider Name:Kiko chatman, 05/21/2025 09:00:00 AM, [address] [place] [address], [address], [place], [phone], Provider Name:Kiko chatman, 12/10/2025 07:15:00 AM, [address], [address], [place], [place], [phone], Provider Name:Kiko De Leon ier, 12/17/2025 09:30:00 AM, [address] [facility], [address], [place], [place], [phone], Progress Notes * Mikal DENNYDOB: [birth year] (74 yo M)Acc No.[id number]:11/17/2024 Patient: Mikal VITALE Provider: La Coats MD :1950 A ge:74 Y S ex:Male Date:11/17/2024 Address:[address], [place] Subjective: * Chief Complaints: * 1 . Review labs. * HPI: D epression Screening: PHQ-9 L [...] d enies. H eadache?denies. * Medical History: E sophageal stricture, Hypercholesterolemia, Hypertension, Asthma - mild intermittent, Colonoscopy 02/2014 and [place] probably not able to access those records but will be followed by them. possibly someone in [place] did it, Colonoscopy and endoscopy 2022. * Family History: F ather: 42 yrs. [...] Occupation: retired. Pets: none. * Medications: T aking PreserVision AREDS 2 - Capsule as directed Orally , Taking Aspir-81 81 MG Tablet Delayed Release 1 tablet Orally Once a day , Taking Multi Vitamin Daily - Tablet 1 tablet Orally Once a day , Taking Triamcinolone Acetonide 0.5 % Cream 1 application Externally Once a day , Taking Cialis 20 MG Tablet 1 tablet Orally Once a day , Taking Ferrous Gluconate 324 (38 Fe) MG Tablet 1 tablet Orally once a day , Taking Atorvastatin Calcium 40 MG Tablet TAKE 1 TABLET BY MOUTH EVERY DAY , Taking Jardiance 10 MG Tablet 1 tablet Orally Once a day , Taking amLODIPine Besylate 5 MG Tablet TAKE 1 TABLET BY MOUTH ONCE A DAY FOR 30 DAY(S) Orally Once a day , Taking Carvedilol 25 MG Tablet 1 tablet with food Orally Twice a day , Taking Ipratropium-Albuterol 0.5-2.5 (3) MG/3ML Solution INHALE 1 VIAL EVERY 4 HOURS NEEDED INHALATION EVERY 6 HRS 30 DAYS , Taking Levalbuterol Tartrate 45 MCG/ACT Aerosol INHALE 2 PUFFS NEEDED EVERY 4 HOURS FOR 30 DAYS INHALATION EVERY 6 HRS , Taking RABEprazole Sodium 20 MG Tablet Delayed Release 1 tablet 1/2 to 1 hour before a meal Orally Once a day , Taking Meloxicam 15 MG Tablet TAKE 1 TABLET BY MOUTH ONCE A DAY AFTER A MEAL , Not-Taking/PRN Stiolto Respimat 2.5-2.5 MCG/ACT Aerosol Solution INHALE 2 PUFFS INTO THE LUNGS ONCE DAILY , Not-Taking/PRN Sucralfate 1 GM Tablet 1 tablet on an empty stomach Orally 4 times a day , Not-Taking/PRN Vitamin C 500 MG Capsule as directed Orally , Not-Taking/PRN traMADol HCl 50 MG Tablet 2 tabs as needed Orally Once a day , Not-Taking/PRN Magnesium Oxide -Mg Supplement 400 (240 Mg) MG Tablet TAKE 2 TABLETS BY MOUTH ONCE DAILY WITH FOOD FOR 30 DAYS , Not- Taking/PRN predniSONE 10 MG Tablet 1 tablet with food or milk Orally 4 tabs for 4 days, 3 tabs for 4 days, 2 tbs for 4 days, and 1 tab for 4 days , Not-Taking/PRN Doxycycline Hyclate 100 MG Tablet 1 tablet Orally Once a day , Not-Taking/PRN traMADol HCl 100 MG Tablet 1 tablet as needed Orally every 8 hours as needed , Not-Taking/PRN Albuterol Sulfate HFA 108 (90 Base) MCG/ACT Aerosol Solution 1 puff as needed Inhalation every 4 hrs , Not-Taking/PRN Hydrocod Pravin-Chlorphe Pravin ER 10-8 MG/5ML Suspension Extended Release 5 mL as needed Orally every 12 hrs as needed , Not-Taking/PRN Qvar RediHaler 80 MCG/ACT Aerosol Breath Activated TAKE 1 PUFF BY MOUTH TWICE A DAY , Not- Taking/PRN valACYclovir HCl 1 GM Tablet TAKE 2 TABLETS BY MOUTH EVERY 12 HOURS , Not- Taking/PRN Betamethasone Dipropionate 0.05 % Cream as directed Externally daily , Not- Taking/PRN ProAir HFA 108 (90 Base) MCG/ACT Aerosol Solution 2 puffs as needed Inhalation every 4 hrs , Medication List reviewed and reconciled with the patient * Allergies: N .K.D.A. Objective: * Vitals: H t: 70, Wt: [...] Average Glucose 134 - mg/dL L ab:Comprehensive [place]. Panel Fast (Order Date - 11/13/2024) (Collection [...] * Follow Up: 6 Months * * The named appointment provid er may or may not be the originator of this progress note, and it is not deemed complete until electronically signed by the appointment provider. Sign off status: Pending * Provider: La Coats MD Date: 0 11/17/2024 Generated for Maryam fontaine/Pamela/Travis on: 02/25/2024 06:18 PM EST History and Physical Notes * [...]
--- OUTSIDE RECORDS SUMMARY | 2024-12-12 06:45 | XMS_ITS ---
Author Organization Kiko oCats MD Address [address] [place], [place] [phone] Care Team Providers Care Supervisor Press Room Name Role Phone Kiko Coats Primary Care Provider Allergies No Known Allergies REASON FOR VISIT STOMACH ISSUES Medications Medication SIG (Take, Route, Frequency, Duration) Notes Start Date End Date Status Ipratropium-Albuterol 0.5-2.5 (3) MG/3ML INHALE 1 VIAL EVERY 4 HOURS NEEDED INHALATION EVERY 6 HRS 30 DAYS Inhalation every 6 hrs for 30 days Active Meloxicam 15 MG TAKE 1 TABLET BY ONCE A DAY AFTER A MEAL for 30 Active RABEprazole Sodium 20 MG 1 tablet 1/2 to 1 hour before a meal Orally Once a day for 90 days 09/22/2024 Active Cialis 20 MG 1 tablet Orally Once a day Active Triamcinolone Acetonide 0.5 % 1 application Externally Once a day for 14 days 11/15/2020 Active Aspir-81 81 MG 1 tablet Orally Once a day for 30 day(s) Active PreserVision AREDS 2 - as directed Orally Active Multi Vitamin Daily - 1 tablet [...] as needed for 10 days 04/26/2023 Not-Taking traMADol HCl 100 MG 1 tablet as needed Orally every 8 hours as needed 03/06/2024 Not-Taking traMADol HCl 50 MG 2 tabs as needed Ora lly Once a day for 30 days 07/24/2024 Not-Takin g Vitamin C 500 MG as directed Orally Active Sucralfate 1 GM 1 tablet on an empty stomach Orally 4 times a day for 30 days 09/22/2024 Not-Taking Stiolto Respimat 2.5-2.5 MCG/ACT INHALE 2 PUFFS INTO THE LUNGS ONCE DAILY Not-Taking Levalbuterol Tartrate 45 MCG/ACT INHALE 2 PUFFS NEEDED EVERY 4 HOURS FOR 30 DAYS INHALATION EVERY 6 HRS Active Carvedilol 25 MG 1 tablet with food Orally Twice a day Active amLODIPine Besylate 5 MG TAKE 1 TABLET B Y MOUTH ONCE A DAY FOR 30 DAY(S) Orally Once a day Active Jardiance 10 MG 1 tablet Orally Once a day Active Atorvastatin Calcium 40 MG TAKE 1 TABLET BY MOUTH EVERY DAY Active Ferrous Gluconate 324 (38 Fe) MG 1 tablet Orally once a day Active Ketoconazole 2 % 1 application Externally Once a day for 30 days 11/17/2024 Active Problems Problem Type SNOMED Code ICD Code Onset Dates Problem Status W/U Status Risk Notes Problem Gallstone (864274309) Gall stones (K80.20) Active confirmed Vital Signs Blood pressure systolic 124 mm Hg 12/13/19 25 Blood pressure diastolic 60 mm Hg 025 Height 70 in 12/12/2024 Weight 168 lbs 12/12/2024 BMI 24.1 kg/m2 12/12/2024 weight is down 5 pounds [facility] e 11-17-24 Encounters Encounter Location Date Provider Diagnosis Kiko Coats MD [address] [place] [address] [place] [phone] 12/12/2024 Kiko Coats Gall stones K80.20 Assessments Encounter Date Diagnosis (ICD Code) Assessment Notes Treatment Notes Treatment Clinical Notes Section Notes 12/12/2024 Gall stones (ICD-10 - K80.20) order fax[facility] [place] [facility] [place] Plan Of Treatment Treatment Notes Assessment Notes Gall stones order faxed to [facility] s dept Pending Test Test Name Order Date US ABD 12/12/2024 Next Appt Details Follow Up: after us, Reason: Provider Name:Kiko chatman, 05/14/2025 07:45:00 AM, [address] [place] [address], [address], [phone], Provider Name:Kiko chatman, 05/21/2025 09:00:00 AM, [address] [place] [address], [address], [phone], Provider Name:Kiko de la or, 12/10/2025 07:15:00 AM, [address] [place] [address], [address], [phone], Provider Name:Kiko chatman, 12/17/2025 09:30:00 AM, [address] [place] [address], [address], [phone], Progress Notes * Mikal DENNYDOB: [birth year] (74 yo M)Acc No.[id number]:12/12/2024 Progress Notes Patient: Mikal VITALE Provider: La Coats MD :1950 A ge:74 Y S ex:Male Date:12/12/2024 Address:[address], [place] Subjective: * Chief Complaints: * S TOMACH ISSUES * HPI: S ymptom(s): patient is a 74 yo male here with complaint of pain in rt upper quadrant worse with eating. / been going on one month./ bowels are unchanged. goes sometimes 5 formed bm's in one day and then goes 3 or 4 days without. unchanged . not related to the pain in. * ROS: G eneral/Constitutional: Denies C hills. D enies F atigue. D enies F ever. D enies H eadache. E NT: Denies S ore throat. R espiratory: Denies C ough. D enies S hortness of breath at rest. D enies S hortness of breath with exertion. G astrointestinal: Admits A bdominal pain, c ramping mostly after eating.?Denies B lood in stool. D enies C onstipation. A dmits D ecreased appetite.?Denies D iarrhea. A dmits N ausea. A dmits W eight loss. * Medical History: * Surgical History: * [...] Tablet 1 tablet Orally Once a day RABEprazole Sodium 20 MG Tablet Delayed Release 1 tablet 1/2 to 1 hour before a meal Orally Once a day Meloxicam 15 MG Tablet TAKE 1 TABLET BY MOUTH ONCE A DAY AFTER A MEAL Ipratropium-Albuterol 0.5-2.5 (3) MG/3ML Solution INHALE 1 VIAL EVERY 4 HOURS NEEDED INHALATION EVERY 6 HRS 30 DAYS Inhalation every 6 hrs Ketoconazole 2 % Cream 1 application Externally Once a day Ferrous Gluconate 324 (38 [...] a day Levalbuterol Tartrate 45 MCG/ACT Aerosol INHALE 2 PUFFS NEEDED EVERY 4 HOURS FOR 30 DAYS INHALATION EVERY 6 HRS Vitamin C 500 MG Capsule as directed [...] 1 tablet Orally Once a day Taking RABEprazole Sodium 20 MG Tablet Delayed Release 1 tablet 1/2 to 1 hour before a meal Orally Once a day Taking Meloxicam 15 MG Tablet TAKE 1 TABLET BY MOUTH ONCE A DAY AFTER A MEAL Taking Ipratropium-Albuterol 0.5-2.5 (3) MG/3ML Solution INHALE 1 VIAL EVERY 4 HOURS NEEDED INHALATION EVERY 6 HRS 30 DAYS Inhalation every 6 hrs Taking Ketoconazole 2 % Cream 1 application Externally Once a day Taking Ferrous Gluconate 324 [...] day Taking Levalbuterol Tartrate 45 MCG/ACT Aerosol INHALE 2 PUFFS NEEDED EVERY 4 HOURS FOR 30 DAYS INHALATION EVERY 6 HRS Taking Vitamin C 500 MG Capsule as directed Orally Not-Taking/PRNStiolto Respimat 2.5-2.5 MCG/ACT Aerosol Solution INHALE 2 PUFFS INTO THE LUNGS ONCE DAILY Sucralfate 1 GM Tablet 1 tablet on an empty stomach Orally 4 times a day traMADol HCl 50 MG Tablet 2 tabs as needed Orally Once a day traMADol HCl 100 MG Tablet 1 tablet as needed Orally every 8 hours as needed Hydrocod Pravin-Chlorphe Pravin ER 10-8 MG/5ML Suspension Extended Release 5 mL as needed Orally every 12 hrs as needed Qvar RediHaler 80 MCG/ACT Aerosol Breath Activated TAKE 1 PUFF BY MOUTH TWICE A DAY valACYclovir HCl 1 GM Tablet TAKE 2 TABLETS BY MOUTH EVERY 12 HOURS Betamethasone Dipropionate 0.05 % Cream as directed Externally daily Medication List reviewed and reconciled with the patientNot-Taking/PRN Stiolto Respimat 2.5-2.5 MCG/ACT Aerosol Solution INHALE 2 PUFFS INTO THE LUNGS ONCE DAILY Not-Taking/PRN Sucralfate 1 GM Tablet 1 tablet on an empty stomach Orally 4 times a day Not-Taking/PRN traMADol HCl 50 MG Tablet 2 tabs as needed Orally Once a day Not-Taking/PRN traMADol HCl 100 MG Tablet 1 tablet as needed Orally every 8 hours as needed Not-Taking/PRN Hydrocod Pravin-Chlorphe Pravin ER 10- 8 MG/5ML Suspension Extended Release 5 mL as needed Orally every 12 hrs as needed Not-Taking/PRN Qvar RediHaler 80 MCG/ACT Aerosol Breath Activated TAKE 1 PUFF BY MOUTH TWICE A DAY Not-Taking/PRN valACYclovir HCl 1 GM Tablet TAKE 2 TABLETS BY MOUTH EVERY 12 HOURS Not-Taking/PRN Betamethasone Dipropionate 0.05 % Cream as directed Externally daily Medication List reviewed and reconciled with the patient * Allergies: N .K.D.A.yes[Allergies Verified] Objective: * Vitals: H t: 70, Wt: 168, BMI:24.1, BP:124/60, Wt-k.2. weight is down 5 pounds since 11-17-24. * Examination: G eneral Examination: GENERAL APPEARANCE: a lert, well hydrated, in no distress.? ABDOMEN: n o hepatosplenomegaly, no hepatosplenomegaly, abnormal with tender ruq.. Assessment: * Assessment: 1. G all stones - K80.20 (Primary) Plan: * Treatment: * Procedure Codes: * Follow Up: a fter us * * Sign off status: Completed true * Provider: La Coats MD Date: Generated for Maryam fontaine/Pamela/Traciesmitting on: 02/25/2024 06:17 PM EST History and Physical Notes * Examination Category Sub-Category Detail Notes Category Not es General Examination GENERAL APPEARANCE: alert, w ell hydrated, in no distress ABDOMEN: no hepatosplenomegal y, no hepatosplenomegaly, abnormal with tender ruq.
--- OUTSIDE RECORDS SUMMARY | 2024-12-25 04:58 | XMS_ITS ---
Author Organization Kiko Coats MD Address [address] [place] [phone] Care Team Providers Care Line Service Attendant Name Role Phone Jorge L Kiko Primary Care Provider [phone] REASON FOR VISIT us abd result Encounters Encounter Location Date Provider Diagnosis Kiko Coats MD [address] [place] [address] [place] [phone] 12/25/2024 Kiko Coats Plan Of Treatment Next Appt Details Provider Name:Kiko chatman, 05/14/2025 07:45:00 AM, [address] [place] [address], [address], [phone], Provider Name:Kiko chatman, 05/21/2025 09:00:00 AM, [address] [place] [address], [address], [phone], Provider Name:Kiko de la or, 12/10/2025 07:15:00 AM, [address], [address], [place], [phone], Provider Name:Kiko De Leon ier, 12/17/2025 09:30:00 AM, [address], [address], [place], [phone], Progress Notes * Mikal DENNYDOB: [birth year] (74 yo M)Acc No.[id number]:12/25/2024 Patient: Mikal VITALE :1950 A ge:74 Y S ex:Male Address:[address], [place] [address] * true * Date: Generated for Maryam fontaine/Pamela/Traciesmitting on: 02/25/2024 06:17 PM EST
[2024-12-25 13:56] VITALS: BP 189/85; PULSE 97; RESP 18; TEMP 36.6; O2SAT 94; BMI 23.9
--- NOTE | 2024-12-25 13:57 | ED.GENADULT ---
HPI - General Adult General Chief complaint: Abdominal Pain Stated complaint: Kidney Stone Time Seen by Provider: 12/25/24 16:06 Source: patient, RN notes reviewed and old records reviewed Mode of arrival: ambulatory Limitations: no limitations History of Present Illness ED Provider: Judah BELLE narrative: 74-year-old male past medical history significant for COPD, not on oxygen, diabetes, hypertension, hyperlipidemia presents for evaluation of abdominal pain. The patient reports he has had upper abdominal pain for at least 1 month pain His pain is in the right upper quadrant. He reports the pain is constant but is occasionally worse after eating pain He reports that he has had decreased appetite with nausea over the last month. He reports losing about 6 pounds in that time frame He denies any fevers, chills. The previous lower extremity arterial bypass in the left lower extremity to the right lower extremity due to poor arterial flow of the right lower extremity. This was done about 5 years ago. He denies any other abdominal surgeries Denies any black or bloody stool The patient had an outpatient ultrasound of the abdomen which showed multiple gallstones. No evidence of cholecystitis. His doctor sent him to the hospital for gallbladder surgery. ? Related Data Home Medications ?Medication ?Instructions ?Recorded ?Confirmed aspirin 81 mg tablet,delayed 81 mg PO DAILY 06/17/20 06/17/20 release atorvastatin 40 mg tablet 40 mg PO BEDTIME 06/17/20 06/17/20 meloxicam 15 mg tablet 15 mg PO DAILY 06/17/20 06/17/20 multivitamin (Daily Multi-Vitamin 1 tab PO DAILY 06/17/20 06/17/20 tablet) omeprazole 20 mg capsule,delayed 20 mg PO BID 06/17/20 06/17/20 release C 250 mg-E 90 mg-zinc 40 mg-copper cap PO 10/15/24 1 mg-lutein 5 [id number] capsule (PreserVision AREDS 2 CO Q-10) albuterol sulfate 90 mcg/actuation 2 puff inhalation Q6H PRN 10/15/24 aerosol inhaler (Ventolin HFA) amlodipine 10 mg tablet 5 mg PO DAILY 10/15/24 carvedilol 25 mg tablet 25 mg PO BID 10/15/24 empagliflozin 10 mg tablet 10 mg PO DAILY 10/15/24 (Jardiance) famotidine 40 mg tablet 40 mg PO DAILY 10/15/24 ferrous sulfate 325 mg (65 mg 325 mg PO DAILY 10/15/24 iron) tablet (FeroSul) rabeprazole 20 mg tablet,delayed 20 mg PO DAILY 10/15/24 release sucralfate 1 gram tablet 1 g PO QID 10/15/24 Previous Rx's ?Medication ?Instructions ?Recorded oxycodone 5 mg tablet 5 mg PO Q6H PRN severe pain (scale 12/25/24 score 7-10) #28 tabs Allergies Allergy/AdvReac Type Severity Reaction Status Date / Time No Known Allergies Allergy Verified 12/25/24 13:58 Review of Systems Constitutional: Constitutional: Denies body ache(s), Denies chills, Denies fever(s), Denies headache(s), Reports poor appetite and Reports weight loss Eyes: Eyes: Denies blurry vision ENT: Denies vertigo, Denies dizziness and Denies headache(s) Cardiovascular: Cardiovascular: Denies chest pain and Denies dyspnea on exertion Respiratory: Respiratory: Denies cough and Denies dyspnea on exertion Gastrointestinal: Gastrointestinal: Reports abdominal pain, Reports nausea and Denies vomiting Musculoskeletal: Musculoskeletal: Denies back pain Integumentary/Breasts: Skin/Breast: Denies rash Neurologic: Denies vertigo, Denies dizziness and Denies headache(s) [facility] Past Medical History Medical History (Updated 12/25/24 @ 17:21 by Evens So) COPD (chronic obstructive pulmonary disease) Pulmonary emphysema Social History Social History Advance Directives: No Advance Directives Information Provided: Yes Do you have a plan to hurt others: No Plan Physical Exam ED Vital Signs: Vital Signs - 24 hr 12/25/24 13:56 12/25/24 15:26 12/25/24 16:32 Temperature 97.8 F 97.5 F 98.2 F Pulse Rate 97 85 83 Respiratory Rate 18 16 Blood Pressure 189/85 H 152/69 H 162/65 H Pulse Oximetry 94 97 96 Oxygen Delivery Method Room Air Room Air Room Air 12/25/24 17:54 Temperature 98.2 F Pulse Rate 83 Respiratory Rate 16 Blood Pressure 162/65 H Pulse Oximetry 96 Oxygen Delivery Method Room Air BMI result Body Mass Index 23.9 Const General: healthy appearing, comfortable, no acute distress, alert and awake Nutritional Appearance: well nourished Orientation/consciousness: patient oriented x3 HENMT Head: Yes normocephalic and Yes atraumatic Eyes Eyelids: Yes eyelids normal Conjunctivae: conjunctivae normal Sclerae: sclerae normal Corneas: corneas normal Pupils: Equal, round and reactive pupils present EOM: EOMs intact bilaterally Neck Neck: Yes full ROM Resp Effort & Inspection: normal respiratory effort, able to speak in complete sentences and not labored Cardio Rate: regular rate Rhythm: regular rhythm GI Inspection: No distended Palpation (GI): Soft to palpation, not firm, Tenderness to palpation present (GI) in the RUQ, no guarding and not rigid Skin General skin exam: elasticity normal Neuro General: patient oriented x3 Cranial nerves: Yes Equal, round and reactive pupils present and Yes Bilaterally intact EOM present Cognition (Neuro): normal cognition Extrem Other: Moving all extremities well without any obvious deformities Course Course Course Narrative: Rapid medical examination performed in triage by Emily Braswell PA-C: Patient is a 74 year old assigned male at presenting to the emergency department with RUQ abdominal pain. Patient states that he was seen by his PCP who told him he had gallstones after an US and to come to the hospital for surgery. Detailed physical exam and review of systems are deferred to the circulation crew leader. Labs ordered. Patient placed back in the waiting room pending room availability and results. Medical Decision Making Medical Decision Making MDM Narrative: 74-year-old male past medical history as above presents for evaluation of right upper quadrant abdominal pain. He had outpatient workup showed symptomatic cholelithiasis, there was no evidence of acute cholecystitis. The patient has a mild leukocytosis, he is well-appearing, he is afebrile with stable vital signs. His labs are otherwise quite unremarkable. His LFTs within normal limits, total bilirubin 0.5. I was able to review of the ultrasound report with him which shows multiple gallstones, no pericholecystic fluid or gallbladder wall thickening. I did reach out to the general surgeon, Dr. Mosher who recommends discharging the patient and he will follow up with him next week to schedule an elective cholecystectomy. I did discuss return precautions with the patient and recommended diet in the meantime Differential Diagnosis Differential Diagnoses: The differential diagnosis associated with the presentation includes Symptomatic cholelithiasis Acute cholecystitis Choledocholithiasis Gastritis Pancreatitis Abdominal pain Admission/Observation Consideration of admission/observation: Escalation of care including admission/observation considered The patient was considered for admission but ultimately deferred for elective cholecystectomy Consult Healthcare Provider Management of the patient was discussed with: [employer] (General surgery) Lab Data MDM Lab Attestation statement: I reviewed the patient's lab results. As above 12/25/24 14:14 12/25/24 14:14 Labs: Lab Results 12/25/24 Range/Units 14:14 WBC 12.1 H (4.8-10.8) X10*3/uL RBC 4.26 L (4.60-5.80) X10*6/uL Hgb 12.2 L (14.0-18.0) g/dl Hct 38.2 L (42.0-52.0) % MCV 89.7 (80.0-98.0) fL MCH 28.6 (27.0-33.0) pg MCHC 31.9 (31.0-36.0) g/dl RDW 15.2 (11.0-16.0) % Plt Count 254 D (160-400) X10*3/uL MPV 10.7 (9.4-12.4) fL Immature Gran % (Auto) 0.6 H (0.0-0.4) % Neut % (Auto) 70.3 (45-73) % Lymph % (Auto) 15.5 L (20-40) % [place] % (Auto) 8.5 (2-11) % Eos % (Auto) 4.0 (0-4) % Baso % (Auto) 1.1 (0-2) % Lymph # (Auto) 1.9 (1.2-4.9) X10*3/uL [place] # (Auto) 1.0 (0.1-1.2) X10*3/uL Eos # (Auto) 0.5 H (0.0-0.4) X10*3/uL Baso # (Auto) 0.1 (0.0-0.2) X10*3/uL Abs Immat Gran (auto) 0.07 H (0.00-0.03) X10*3/uL Absolute Neuts (auto) 8.5 H (2.0-8.3) x10*3/uL Absolute Nucleated RBC 0.000 (0.0-0.012) X10*3/uL Nucleated RBC % (auto) 0.0 (0.0-0.2) /100WBC Sodium 137 (135-145) mmol/L Potassium 3.7 (3.3-5.1) mmol/L Chloride 103 (96-108) mmol/L Carbon Dioxide 24 (22-29) mmol/L Anion Gap 14 (12-20) BUN 13 (9-16) mg/dL Creatinine 1.18 (0.5-1.4) mg/dL Estim Creat Clear Calc 54.9 Estimated GFR > 60 Random Glucose 149 H (60-115) mg/dL Calcium 9.6 D (8.4-10.2) mg/dL Magnesium 2.3 (1.6-2.6) mg/dL Total Bilirubin 0.5 (0.0-1.0) mg/dL AST 16 (5-37) U/L ALT 13 (0-40) U/L Alkaline Phosphatase 82 (39-117) U/L Total Protein 7.0 (6.5-8.0) g/dL Albumin 4.3 (3.5-5.0) g/dL Radiology Impression Discussion of test interpretation with radiology: I have reviewed the radiologist's reading. Radiologist Impression: Discharge Plan Discharge Clinical Impression: Symptomatic cholelithiasis Patient Disposition: Home, Self-Care Instructions: Biliary Colic (ED), Gallstones (ED) Additional Instructions: your workup in the ER today was reassuring. This includes your blood work. I was able to review your outpatient ultrasound that shows multiple gallstones. In his likely that you need your gallbladder removed. I discussed with Dr. Mosher, the general surgeon. Call his office tomorrow, he wants you to be seen next week and will likely schedule your surgery to have your gallbladder removed you may take oxycodone for severe, breakthrough pain. I recommend taking this 1 hour prior to eating the same make you drowsy, do not drink alcohol or drive after taking it. I recommend taking MiraLax or another stool softener in addition to prevent significant constipation. Return for new or worsening symptoms, especially if you develop fevers, chills, severe or intractable pain or you are nauseous and unable to eat anything at all Prescriptions: New oxycodone 5 mg tablet 5 mg PO Q6H PRN (Reason: severe pain (scale score 7-10)) Qty: 28 0RF Rx Instructions: Partial Fill upon patient request. No Action aspirin 81 mg tablet,delayed release (DR/EC) 81 mg PO DAILY atorvastatin 40 mg tablet 40 mg PO BEDTIME meloxicam 15 mg tablet 15 mg PO DAILY omeprazole 20 mg capsule,delayed release(DR/EC) 20 mg PO BID multivitamin [Daily Multi-Vitamin] Tablet 1 tab PO DAILY amlodipine 10 mg tablet 5 mg PO DAILY rabeprazole 20 mg tablet,delayed release (DR/EC) 20 mg PO DAILY sucralfate 1 gram tablet 1 g PO QID Jardiance 10 mg tablet 10 mg PO DAILY carvedilol 25 mg tablet 25 mg PO BID Rx Instructions: must administer with a meal/food famotidine 40 mg tablet 40 mg PO DAILY ferrous sulfate [FeroSul] 325 mg (65 mg iron) tablet 325 mg PO DAILY albuterol sulfate [Ventolin HFA] 90 mcg/actuation HFA aerosol inhaler 2 puff inhalation Q6H PRN PreserVision AREDS 2 CO Q-10 654-92-24-1-5 mg capsule PO Referrals: Zohaib Mosher MD [Physician, General Surgery] Referral Note: symptomatic cholelithiasis Interventions: ED Discharge Assessment Last Done: 12/25/24 17:54 Print Language: Cook Islander
[2024-12-25 14:19] LABS: MANUAL DIFF FLAG NO
[2024-12-25 14:23] LABS: Hematocrit 38.2 % (42.0-52.0); Hemoglobin 12.2 g/dl (14.0-18.0); Imm Gran Abs Auto 0.07 X10*3/uL (0.00-0.03); Imm Gran Pct Auto 0.6 % (0.0-0.4); Lymphocytes Absolute Auto 1.9 X10*3/uL (1.2-4.9); Mean Corpuscular HGB Conc 31.9 g/dl (31.0-36.0); Mean Corpuscular Hemoglobin 28.6 pg (27.0-33.0); Mean Corpuscular Volume 89.7 fL (80.0-98.0); NRBC Abs Auto 0.000 X10*3/uL (0.0-0.012); NRBC Pct Auto 0.0 /100WBC (0.0-0.2); Platelet Count 254 X10*3/uL (160-400); Red Blood Count 4.26 X10*6/uL (4.60-5.80); White Blood Count 12.1 X10*3/uL (4.8-10.8)
[2024-12-25 14:35] LABS: Alanine Aminotransferase 13 U/L (0-40); Albumin Level 4.3 g/dL (3.5-5.0); Alkaline Phosphatase 82 U/L (39-117); Anion Gap 14 (12-20); Aspartate Amino Transferase 16 U/L (5-37); Blood Urea Nitrogen 13 mg/dL (9-16); Calcium 9.6 mg/dL (8.4-10.2); Carbon Dioxide 24 mmol/L (22-29); Chloride 103 mmol/L (96-108); Creatinine Clr Calc Pharmacy 54.9; Estimated Glomerular Filt Rate > 60; Magnesium 2.3 mg/dL (1.6-2.6); Potassium 3.7 mmol/L (3.3-5.1); Sodium 137 mmol/L (135-145); Total Protein 7.0 g/dL (6.5-8.0)
[2024-12-25 15:26] VITALS: BP 152/69; PULSE 85; TEMP 36.4; O2SAT 97
[2024-12-25 16:32] VITALS: BP 162/65; PULSE 83; RESP 16; TEMP 36.8; O2SAT 96
--- NOTE | 2024-12-25 16:53 | PC.NURSE ---
MANDEEP So at bedside speaking with the patient.
[2024-12-25 17:54] VITALS: BP 162/65; PULSE 83; RESP 16; TEMP 36.8; O2SAT 96
--- OUTSIDE RECORDS SUMMARY | 2024-12-25 18:17 | XMS_ITS | Encounter Summary ---
Author Organization [facility] Address [address] [place] [id number] Phone Care Team Providers Care Hide Mill Worker Name Role Phone Lindy Buckner MD Primary Care Provider Encounter Details Date Type Department Care Team (Late st Contact Info) Description 08/10/2022 Procedure Pass [facility] Endoscopy Admitting Dept Virtual Department [address] [place] [address] Social History Tobacco Use Types Packs/Day Years [...] on filedocumented in this encounter Care Teams Hide Mill Worker Relationship Specialty Start Date End Date Lindy Buckner MD [address] [place] [address] PCP - General Internal Medicine 06/09/22 documented as of this encounter Additional Source Comments The information contained in this document represents components of the legal health record. It is not the complete legal health record.[facility]
--- OUTSIDE RECORDS SUMMARY | 2024-12-25 18:17 | XMS_ITS | Patient Health Record ---
Author Organization Kiko Coats MD Address [address] [place], [place] [id number] Care Team Providers Care Prom Burn Off Operator Name Role Phone JakeKiko calabrese Primary Care Provider [phone] Allergies No Known Allergies Results Component Value Reference Range Notes Hemoglobin A1c Reviewed date:01/28/2024 10:57:43 AM Interpretation: Performing Lab: Notes/Report: Hemoglobin A1c 6.1 Complete Blood Count Auto Di ff Reviewed date:11/13/2024 04:28:00 PM Interpretation: Performing Lab:[facility], [address] [place] [address] Notes/Report: White Blood Count 9.2 4.8-10.8 X10*3/uL [...] NRBC Abs Auto 0.000 0.0-0.012 X10*3/uL Comprehensive [place]. Panel Fa st Reviewed date:11/13/2024 04:28:23 PM Interpretation: Performing Lab:[facility], [address] [place] [phone] Notes/Report: Sodium 142 135-145 mmol/L Potassium 3.9 [...] PROFILE Reviewed date:11/13/2024 04:19:48 PM Interpretation: Performing Lab:[address] [address] Notes/Report: Iron 63 45-160 mcg/dL Total Iron Binding Capacity 244 228-428 mcg/dL Percent Iron Saturation 26 15-50 % Unsaturated Iron Binding 181 Lipid Panel Reviewed date:11/13/2024 04:24:20 PM Interpretation: Performing Lab:[address] [address] Notes/Report: Triglycerides 283 <150 mg/dL Desirable Triglyceride: [...] (Free>4and<10) Reviewed date:11/13/2024 04:24:30 PM Interpretation: Performing Lab:[address] [address] Notes/Report: PSA,Total (Free>4and<10) < 0.10 0.00-4.00 ng/mL [...] Random Reviewed date:11/13/2024 04:25:27 PM Interpretation: Performing Lab:[address] [address] Notes/Report: Creatinine Urine 70.25 Microalbumin Urine 79.0 Microalbum/Creatinine Ratio Ur 112.4 <30 ug/mg cr Albumin/Creatinine Ratio Reference Ranges: Normal: < 30 ug/mg creatinine Microalbuminuria: 30 - 300 ug/mg creatinine Clinical Albuminuria: > 300 ug/mg creatinine Hemoglobin A1c Reviewed date:11/13/2024 04:19:36 PM Interpretation: Performing Lab:[address] [address] Notes/Report: Hemoglobin A1c % 6.3 <6.0 % [...] average glucose, using the formula of the O2M-Gfsygjy Average Glucose study (ADAG), Diabetes Care, Vol.31,#8, Sep. 2007 UA ClnCatch+Micro w/rflx Cul t Reviewed date:11/13/2024 04:28:44 PM Interpretation: Performing Lab:[address] [address] Notes/Report: [id number] Urine, Clean Catch Color Urine Yellow Appearance Urine Clear PH 7.0 5.0-9.0 Glucose Urine UA >=1000 Negative mg/dL Urine Blood Negative Negative Specific [place] - Urine 1.010 1.005-1.025 Urine Protein Trace [...] date:03/07/2024 12:57:23 PM Interpretation: Performing Lab: Notes/Report: [facility] Primary [address] [place] [address] XRay Report Signed Patient: Mikal Elizondo MR#: [id number] : 1950 Acct:[id number] Age/Sex: 73 / M ADM Date: 03/06/24 Loc: [facility] Attending Dr: Kiko Coats MD Ordering Physician: Kiko Coats MD Date of Service: 03/06/24 Procedure(s): XR chest 2V Accession Number(s): [id number] cc: Kiko Coats MD EXAMINATION: XR CHEST [...] by: Que Lopez MD 03/07/2024 12:12 PM [facility] [place] Dictated By: Que Wilkinson MD Signed By: <Electronically signed by Que Felix MD in OV> 03/07/24 1212 DD/ 1406 TD/TT: 03/06/24 1410 Shingle Packer: [facility] [place] [address] XRay Report Signed Patient: Yadira Elizondo MR#: [id number] : 1950 Acct:[id number] Age/Sex: 73 / M ADM Date: 03/06/24 Loc: [facility] Attending Dr: Kiko Coats MD Ordering Physician: Kiko Coats MD Date of Service: 03/06/24 Procedure(s): XR chest 2V Accession Number(s): [id number] cc: Kiko Coats MD EXAMINATION: XR CHEST [...] by: Que Lopez MD 03/07/2024 12:12 PM [facility] [place] Dictated By: Que Grullon MD Signed By: <Electronically signed by Que Felix MD in OV> 03/07/24 1212 DD/ 1406 TD/TT: 03/06/24 1410 Shingle Packer: Liver Panel Reviewed date:05/05/2024 12:51:46 PM Interpretation: Performing Lab:[facility], [address] [place] [phone] Notes/Report: Bilirubin Total 0.4 0.0-1.0 mg/dL Bilirubin Direct 0.2 0.0-0.5 mg/dL Aspartate Amino Transferase 21 5-37 U/L Alanine Aminotransferase 24 0-40 U/L Total Protein 7.0 6.5-8.0 g/dL Albumin Level 4.0 3.5-5.0 g/dL Alkaline Phosphatase 51 39-117 U/L Glucose Fasting Reviewed date:05/05/2024 12:52:03 PM Interpretation: Performing Lab:[address] [address] Notes/Report: Glucose Fasting 97 60-99 mg/dL Lipid Panel with Reflex Reviewed date:05/05/2024 04:32:27 PM Interpretation: Performing Lab:[address] [address] Notes/Report: Triglycerides 251 <150 mg/dL Desirable Triglyceride: [...] A1c Reviewed date:05/05/2024 11:59:28 AM Interpretation: Performing Lab:[address] [address] Notes/Report: Hemoglobin A1c % 6.1 <6.0 % [...] average glucose, using the formula of the U5S-Ojjplhk Average Glucose study (ADAG), Diabetes Care, Vol.31,#8, Sep. 2007 XR clavicle RT Reviewed date:10/17/2024 06:49:30 PM Interpretation: Performing Lab: Notes/Report: [facility] Adult Primary Care [address] [place] [address] [place] [address] XRay Report Signed Patient: Mikal Elizondo MR#: [id number] : 1950 Acct:[id number] Age/Sex: 74 / M ADM Date: 10/15/24 Loc: [facility] Attending Dr: Isela Reyes PA-C Ordering Physician: ISELA REYES Date of Service: 10/15/24 Procedure(s): XR clavicle RT Accession Number(s): [id number] cc: Kiko Coats MD; ISELA REYES EXAMINATION: [...] 10/15/24 0941 DD/ 0818 TD/TT: 10/15/24 0920 Shingle Packer: [facility] Primary [address] [place] [address] XRay Report Signed Patient: Yadira Elizondo MR#: [id number] : 1950 Acct:[id number] Age/Sex: 74 / M ADM Date: 10/15/24 Loc: [facility] Attending Dr: Anna Reyes PA-C Ordering Physician: ISELA REYES Date of Service: 10/15/24 Procedure(s): XR cla vicle RT Accession Number(s): [id number] cc: Kiko Coats MD; ISELA REYES EXAMINATION: [...] in OV> 10/15/[address] DD/ 7 TD/TT: 10/15/249[address] Shingle Packer: Reason For Referral Reason please zenia fernandes Diagnosis 1 Esophageal ulcer wit hout bleeding (K22.10) Referral Organization Kiko Coats MD Referring Provider First Name Kiko Referring Provider Last Name Jorge L Referring Provider Speciality Internal M edicine Referred Provider [facility] , [facility] Referred Provider Specialty Gastroentero logy General Notes Molly Webber 0 09/19/2024 02:58:33 PM > patient is aware of appt, Was told we needed to send a referral (doctor to doctor referral ) Referral Priority Routine Referral Appointment Date 11/12/2024 Medications Medication SIG (Take, Route, Frequency, Duration) Notes Start Date End Date Status Aspir-81 81 MG 1 tablet Orally Once a day for 30 day(s) Active PreserVision AREDS 2 - as directed Orally Active Jardiance 10 MG 1 tablet Orally Once a day Active Atorvastatin Calcium 40 MG TAKE 1 TABLET BY MOUTH EVERY DAY Active Qvar RediHaler 80 MCG/ACT TAKE 1 PUFF BY MOUTH TWICE A DAY Not-Taking Ferrous Gluconate 324 (38 Fe) MG 1 tablet Orally once a day Active Hydrocod Pravin-Chlorphe Pravin ER 10-8 MG/5ML 5 mL as needed Orally every 12 hrs as needed for 10 days 04/26/2023 Not-Taking Ketoconazole 2 % 1 application Externally Once a day for 30 days 11/17/2024 Active traMADol HCl 100 MG 1 tablet as needed Orally every 8 hours as needed 03/06/2024 Not-Taking Ipratropium-Albuterol 0.5-2.5 (3) MG/3ML INHALE 1 VIAL EVERY 4 HOURS NEEDED INHALATION EVERY 6 HRS 30 DAYS Inhalation every 6 hrs for 30 days Active traMADol HCl 50 MG 2 tabs as needed Ora lly Once a day for 30 days 07/24/2024 Not-Takin g Meloxicam 15 MG TAKE 1 TABLET BY DEBORAH ONCE A DAY AFTER A MEAL for 30 Active Vitamin C 500 MG as directed Orally Active RABEprazole Sodium 20 MG 1 tablet 1/2 to 1 hour before a meal Orally Once a day for 90 days 09/22/2024 Active Sucralfate 1 GM 1 tablet on an empty stomach Orally 4 times a day for 30 days 09/22/2024 Not-Taking Cialis 20 MG 1 tablet Orally Once a day Active Stiolto Respimat 2.5-2.5 MCG/ACT INHALE 2 PUFFS INTO THE LUNGS ONCE DAILY Not-Taking Triamcinolone Acetonide 0.5 % 1 application Externally Once a day for 14 days 11/15/2020 Active Levalbuterol Tartrate 45 MCG/ACT INHALE 2 PUFFS NEEDED EVERY 4 HOURS FOR 30 DAYS INHALATION EVERY 6 HRS Active Multi Vitamin Daily - 1 tablet Orally On ce a day for 30 day(s) Active Carvedilol 25 MG 1 tablet with food Orally Twice a day Active amLODIPine Besylate 5 MG TAKE 1 TABLET B Y MOUTH ONCE A DAY FOR 30 DAY(S) Orally Once a day Active Betamethasone Dipropionate 0.05 % as directed Externally daily for 30 days 02/10/2011 Not-Taking valACYclovir HCl 1 GM TAKE 2 TABLETS BY MOUTH EVERY 12 HOURS for 3 Not-Taking Immunizations Vaccine Route Administration Date Status Comme nts Flu Vaccine IM Intramuscular 12/25/2011 Administered Flu Vaccine Unknown 11/19/2012 Administered flu vac giv en at [place] Fluarix Quadrivalent IM Intramuscular 11/14/2013 Administe red Fluarix Quadrivalent IM Intramuscular 12/14/2014 Administe red Prevnar 13 Unknown 07/22/2014 [facility]ered [facility] [place] PPSV23 (Pnemovax) IM Intramuscular 10/11/2015 Administered Fluarix Quadrivalent IM Intramuscular 10/26/2015 [place] smile[facility] Shingles Unknown 11/04/2012 Administered done at the [place] Fluarix Quadrivalent IM Intramuscular 01/19/2017 [place] red Fluarix Quadrivalent IM Intramuscular 12/03/2017 [place] [facility] TDaP Unknown 07/30/2006 Administered At the [place] Fluarix Quadrivalent IM Intramuscular 11/05/2018 [facility] pt was given the vaccine at the [place] Influenza High Dose Unknown 11/04/2019 [facility] [place] Shingrix Unknown 11/04/2019 [facility] [place] Shingrix Unknown 02/25/2020 [facility] SARS-COV-2 Moderna [...] Status Risk Notes Problem Carotid artery disease (674977674) Carotid artery disease (I77.9) Active confirmed Problem Dysphagia (34177931) Dysphagia (R13.10) Active confirmed Problem 993190382 Hypomagnesemia (E83.42) Active confirmed Problem 40396681 Hypercalcemia (E83.52) Active confirmed Problem 70052340 Other chronic pa in (G89.29) Active confirmed Problem 9550652 Panlobular emphysema (J43.1) Active confirmed Problem 270838494849406 Erectile dysfunction due to arterial insufficiency (N52.01) Active confirmed Problem 186328788 Lumbar disc disease (M51.9) Active confirmed Problem 61856768 Essential hypertension (I10) Active confirmed Problem 893877302 Prostate cancer (C61) Active confirmed Problem Psoriasis (6810058) Psoriasis (L40.9) Active co nfirmed Problem 12167163 Type 2 diabetes mellitus without complication (E11.9) Active confirmed Problem 09368260 Abdominal aortic aneurysm without rupture (I71.4) Active confirmed Problem 109585571 Low HDL (under 4 0) (E78.6) Active confirmed Problem 456121467 Anemia, unspecified anemia type (D64.9) Active confirmed Problem 128001101 High triglycerid es (E78.1) Active confirmed Problem 692911748 Cervical disc disease (M50.90) Active confirmed Problem 46020272 Intrinsic eczema (L20.84) Active confirmed Problem 587013691 Raynauds disease without gangrene (I73.00) Active confirmed Problem Gallstone (060873422) Gall stones (K80.20) Active confirmed Problem 309395481 COPD exacerbatio n (J44.1) Active confirmed Problem Atherosclerosis (63693949) Atherosclerosis (I70.90) Active confirmed Problem Leukocytosis (732483493) Elevated WBC count (D72.829) Active confirmed Problem 506159256 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) Active confirmed Problem 792225581 Nodule of tongue (R22.0) Active confirmed Problem 90507550 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) Active confirmed Problem 755004793 COPD with exacerbation (J44.1) Active confirmed Problem 9223717643452817 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) Active confirmed Problem 039165636 Low blood magnesium (R79.0) Active confirmed Problem 827685507 Age-related incipient cataract of both eyes (H25.093) Active confirmed Problem 701878676 Arthritis, 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) Active confirmed Problem Ulcer of esophagus (75497663) Esophageal ulcer without bleeding (K22.10) Active confirmed Vital Signs Blood pressure diastolic 60 mm Hg 12/12/2024 rio ght is down 5 pounds since 11-17-24 Height 70 in 12/12/2024 weight is down 5 pounds since 11-17-24 Blood pressure systolic 124 mm Hg 12/12/2024 weig ht is down 5 pounds since 11-17-24 Weight 168 lbs 12/12/2024 weight is down 5 pounds since 11-17-24 BMI 24.1 kg/m2 12/12/2024 weight is down 5 pounds since 11-17-24 Encounters Encounter Location Date Provider Diagnosis Kiko Coats MD [address] [place] [id number] 11/13/2024 Kiko Coats Type 2 diabetes mellitus without complication E11.9 ; Encounter for administration of vaccine Z23 ; Essential hypertension I10 ; Low HDL (under 40) E78.6 ; Anemia, unspecified anemia type D64.9 and High triglycerides E78.1 [address]iko Coats MD [address] [place] [address] [id number] 11/17/2024 Kiko Coats Panlobular emphysema J43.1 ; Tinea B35.9 ; Type 2 diabetes mellitus without complication E11.9 ; Prostate cancer C61 ; Essential hypertension I10 ; High triglycerides E78.1 ; Anemia, unspecified anemia type D64.9 and Depression screening Z13.31 Kiko Coats MD [address] [place] [address] [address] [place] [id number] 01/28/2024 Kiko Coats Type 2 diabetes mellitus without complication E11.9 ; Skin lesion L98.9 and Panlobular emphysema J43.1 Kiko Coats MD [address] [place] [id number] 02/25/2024 Kiko Coats COPD with exacerbati on J44.1 Kiko Coats MD [address] [place] [address] [address] [place] [id number] 03/06/2024 Kiko Coats Lumbar disc disease M51.9 and Bronchitis J40 Kiko Coats MD [address] [place] [address] [address] [place] [id number] 05/09/2024 Kiko Coats Panlobular emphysema J43.1 ; Type 2 diabetes mellitus without complication E11.9 and Low HDL (under 40) E78.6 Kiko Coats MD [address] [place] [id number] 08/04/2024 Kiko Coats Esophageal ulcer without bleeding K22.10 ; Panlobular emphysema J43.1 and Essential hypertension I10 Kiko Coats MD [address] [place] [id number] 12/12/2024 Kiko Coats Gall stones K80.20 Kiok Coats MD [address] [place] [address] [id number] 03/14/2024 Kiko Coats Lumbar disc disease M51.9 Kiko Coats MD [address] [place] [address] [id number] 07/24/2024 Kiko Coats MD [address] [place] [address] [id number] 07/31/2024 Kiko Coats MD [address] [place] [address] [id number] 09/19/2024 Kiko Coats MD [address] [place] [address] [id number] 10/07/2024 Kiko Coats MD [address] [place] [address] [id number] 12/25/2024 Kiko Coats MD [address] [place] [id number] 11/07/2024 Kiko Coats Assessments Encounter Date Diagnosis (ICD Code) Assessment Notes Treatment Notes Treatment Clinical Notes Section Notes 11/13/2024 Type 2 diabetes mellitus without complication (ICD-10 - E11.9) 11/13/2024 Encounter for administration of vaccine (ICD-10 - Z23) 11/17/2024 Panlobular emphysema (ICD-10 - J43.1) stable, will continue current regiment 11/17/2024 Tinea (ICD-10 - B35.9) 01/28/2024 Type 2 diabetes mellitus without complication (ICD-10 - E11.9) good a1c 01/28/2024 Skin lesion (ICD-10 - L98.9) will refer to derm 02/25/2024 COPD with exacerbation (ICD-10 - J44.1) patient verbalized understanding of medication and directions for use 03/06/2024 Lumbar disc disease (ICD-10 - M51.9) 03/06/2024 Bronchitis (ICD-10 - J40) patient verbalized understanding of medication and directions for use. x-ray order faxed to [place] [facility] 05/09/2024 Panlobular emphysema (ICD-10 - J43.1) doing well using his updrafts once a day, will continue current regiment 08/04/2024 Esophageal ulcer without bleeding (ICD-10 - K22.10) need results of biopsy/ will send for results 12/12/2024 Gall stones (ICD-10 - K80.20) order faxed to [facility] cs dept 03/14/2024 Lumbar disc disease (ICD-10 - M51.9) 11/13/2024 Essential hypertension (ICD-10 - I10) 11/17/2024 Type 2 diabetes mellitus without complication (ICD-10 - E11.9) good a1c, will continue current regiment 01/28/2024 Panlobular emphysema (ICD-10 - J43.1) doing well 05/09/2024 Type 2 diabetes mellitus without complication (ICD-10 - E11.9) doing well, will contnue curent rgiment 08/04/2024 Panlobular emphysema (ICD-10 - J43.1) stable 11/13/2024 Low HDL (under 40) (ICD-10 - E78.6) 11/17/2024 Prostate cancer (ICD-10 - C61) no sign of recurrance 05/09/2024 Low HDL (under 40) (ICD-10 - E78.6) stable, will cpntnue current regiment 08/04/2024 Essential hypertension (ICD-10 - I10) well contrlolled 11/13/2024 Anemia, unspecified anemia type (ICD-10 - D64.9) 11/17/2024 Essential hypertension (ICD-10 - I10) stable, will continue current regiment 11/13/2024 High triglycerides (ICD-10 - E78.1) 11/17/2024 High triglycerides (ICD-10 - E78.1) stable, will continue current regiment 11/17/2024 Anemia, unspecified anemia type (ICD-10 - D64.9) stable, will continue current regiment 11/17/2024 Depression screening (ICD-10 - Z13.31) negtive screen Plan Of Treatment Pending Test Test Name Order Date Electrocardiogram (EKG) 02/01/2018 Electrocardiogram (EKG) 02/14/2019 MRI LUMBAR SPINE NO CONTRAST 04/28/2022 XR CHEST 2 VIEW PA & LAT 04/23/2023 XR CHEST 2 VIEW PA & LAT 03/06/2024 US ABD 12/26/2022 US ABD 12/12/2024 ECG 30 day event monitor 01/10/2022 CT lumbar spine wo con 05/18/2022 MR elbow RT wo/w con 2022 MR lumbar spine wo con 11/13/2023 XR elbow RT min 3V 2022 Next Appt Details Provider Name:Kiko De Leon ier, 05/14/2025 07:45:00 AM, [address] [place] [address], [phone], Provider Name:Kiko De Leon ier, 05/21/2025 09:00:00 AM, [address] [place] [address], [phone], Provider Name:Kiko De Leon ier, 12/10/2025 07:15:00 AM, [address] [place] [address], [id number], Provider Name:Kiko De Leon ier, 12/17/2025 09:30:00 AM, [address] [place] [address], [phone], Insurance Providers Payer Name Payer Address Payer Phone Subscriber Number Group Number Insured Name Patient Relationship to Insured Coverage Start Date Coverage End Date [employer] [address] [place] [address] [id number] Mikal Elizondo Self - patient is the insured 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 [address] [place] [address] [phone] [id number] [phone] Mikal Elizondo Self - patient is the insured Medical (General) History Medical History History ICD Code esophageal stricture hypercholesterolemia hypertension asthma - mild intermittent colonoscopy 02/2014 and upper endo were done at the de. probably not able to access those records but will be followed by them. possibly someone in [facility] did it colonoscopy and endoscopy 2022
--- OUTSIDE RECORDS SUMMARY | 2024-12-25 18:17 | XMS_ITS | Encounter Summary ---
Author Organization [facility] Address [address] [place] [address] Phone Care Team Providers Care Women'S Soccer Coach Name Role Phone Lindy Buckner MD Primary Care Provider Encounter Details Date Type Department Care Team (Late st Contact Info) Description 06/09/2022 Procedure Pass [facility] Endoscopy Admitting Dept Virtual Department [address] [place] [address] Social History Tobacco Use Types Packs/Day Years [...] on filedocumented in this encounter Care Teams Women'S Soccer Coach Relationship Specialty Start Date End Date Lindy Buckner MD [address] [place] [address] PCP - General Internal Medicine 06/09/22 documented as of this encounter Additional Source Comments The information contained in this document represents components of the legal health record. It is not the complete legal health record.[facility]
--- OUTSIDE RECORDS SUMMARY | 2024-12-25 18:17 | XMS_ITS | Encounter Summary ---
Author Organization [facility] Address [address] [address] [facility] [address] [place] [address] Phone Care Team Providers Care Produce Assistant Name Role Phone Lindy Buckner MD Primary Care Provider [phone] Encounter Details Date Type Department Care Team (Late st Contact Info) Description 03/02/2023 Procedure Pass [facility] Endoscopy Admitting Dept Virtual Department [address] [place] [address] Social History Tobacco Use Types Packs/Day Years [...] on filedocumented in this encounter Care Teams Produce Assistant Relationship Specialty Start Date End Date Lindy Buckner MD [address] [place] [address] PCP - General Internal Medicine 06/09/22 documented as of this encounter Additional Source Comments The information contained in this document represents components of the legal health record. It is not the complete legal health record.[facility]
--- OUTSIDE RECORDS SUMMARY | 2024-12-25 18:18 | XMS_ITS | Patient Health Record ---
Author Organization [facility] Address [address] [place] [phone] Support Name Relationship Address Phone QUENTIN DENNY Guarantor Unknown Reason For Referral No Information Plan Of Treatment No Information
--- OUTSIDE RECORDS SUMMARY | 2024-12-25 18:18 | XMS_ITS | Data Portability ---
Author Organization [place] [facility] Address [address] [place] [address] Care Team Providers Care Face And Fill Packer Name Role Phone DRUERASMO SHEPPARDN Primary Care Provider [phone] [facility] OTHER Assessment Encounter Date Assessment Date Assessment LastModified [...] ionized [facility], serum or plasma [facility], [address] [place], [address], 05:01:37 urinalysis , dipstick 2021 022 [email or web address] [facility] Home, [address] [place], [address], 15:29:23 Referral None recorded. Procedures None recorded. Surgeries None recorded. Imaging None recorded. Medication Orders None recorded. Patient TargetsNo targets recorded. Patient Instructions Encounter Date Encounter Id Patient Instructions Last Modified By Organization Details Last Modified Time 12/14/2021 [id number] [facility] [...] , dipst ick Appearance clear Not Available [facility] - ome [address], [place], [address], 12/14/2021 15:12:58 12/15/1912/14/2021 urina lysis , dipst ick Color yellow Not Available [facility] - Home [address] [place], [address], 12/14/2021 15:12:58 12/15/19 22 12/14/2021 urina lysis , dipst ick Glucose (ref: neg Neg Not Available [facility] - May [address] [place], [address], 12/14/2021 15:12:58 12/15/1912/14/2021 urina lysis , dipst ick Bilirubin (ref: neg) Neg Not Available [facility] - May [address] [place], [address], 12/14/2021 15:12:58 12/15/1912/14/2021 urina lysis , dipst ick Ketones (ref: neg) Neg Not Available [facility] - May [address] [place], [address], 12/14/2021 15:12:58 12/15/1912/14/2021 urina lysis , dipst ick Specific Afton (ref: 1.003 - 1.035) 1.020 Not Available [facility] - May [address] [place], [address], 12/14/2021 15:12:58 12/15/19 22 12/14/2021 urina lysis , dipst ick Blood (ref: neg) Neg Not Available [facility] - May [address], [place], [address], 12/14/2021 15:12:58 12/15/1912/14/2021 urina lysis , dipst ick pH (ref: 5.0-7.0) 5.0 Not Available [facility] - May [address] [place], [address], 12/14/2021 15:12:58 12/15/19 22 12/14/2021 urina lysis , dipst ick Protein (ref: neg) Neg Not Available [facility] - May [address] [place], [address], 12/14/2021 15:12:58 12/15/1912/14/2021 urina lysis , dipst ick Urobilinogen (ref: 0.2-1.0) 0.2 Not Available [facility] - Home [address] [place], [address], 12/14/2021 15:12:58 12/15/1912/14/2021 urina lysis , dipst ick Nitrites (ref: neg) negati ve Not Available [facility] - Home [address] [place], [address], 12/14/2021 15:12:58 12/15/1912/14/2021 urina lysis , dipst ick Leukocytes (ref: neg) Not Available [facility] - Home [address] [place], [address], 12/14/2021 15:12:58 12/15/1912/14/2021 urina lysis , dipst ick Location [facility], [address] [place] [address], [id number] Not Available [facility] - Home [address] [place], [address], 12/14/2021 15:12:58 12/15/19 22 12/14/2021 BMP + IONIZ ED CALCI UM, SERUM OR PLASM A glu 179 mg/dL 70-105 Not Available [facility] [address] [place], [address], 12/14/2021 15:11:21 12/15/19 22 12/14/2021 BMP + IONIZ ED CALCI UM, SERUM OR PLASM A BUN 24 mg/dL 8-26 Not Available [facility] [address] [place], [address], 12/14/2021 15:11:21 12/15/19 22 12/14/2021 BMP + IONIZ ED CALCI UM, SERUM OR PLASM A crea 1.9 mg/dL 0.6-1. 3 Not Available [address], [address], 12/14/2021 15:11:21 12/15/19 22 12/14/2021 BMP + IONIZ ED CALCI UM, SERUM OR PLASM A Na 136 mmol/ L 138-14 6 Not Available [address], [address], 12/14/2021 15:11:21 12/15/19 22 12/14/2021 BMP + IONIZ ED CALCI UM, SERUM OR PLASM A K 4.0 mmol/ L 3.5-4. 9 Not Available [address], [address], 12/14/2021 15:11:21 12/15/19 22 12/14/2021 BMP + IONIZ ED CALCI UM, SERUM OR PLASM A cL 99 mmol/ L 98-109 Not Available [address], [address], 12/14/2021 15:11:21 12/15/19 22 12/14/2021 BMP + IONIZ ED CALCI UM, SERUM OR PLASM A TCO2 24 mmol/ L 24-29 Not Available [address], [address], 12/14/2021 15:11:21 12/15/19 22 12/14/2021 BMP + IONIZ ED CALCI UM, SERUM OR PLASM A angap 18 mmol/ L 10-20 Not Available [address], [address], 12/14/2021 15:11:21 12/15/19 22 12/14/2021 BMP + IONIZ ED CALCI UM, SERUM OR PLASM A ica 1.15 mmol/ L 1.12-1 .32 Not Available [facility] [address] [place], [address], 12/14/2021 15:11:21 12/15/19 22 12/14/2021 BMP + IONIZ ED CALCI UM, SERUM OR PLASM A HCT 28 %pcv 38-51 Not Available [facility] [address] [place], [address], 12/14/2021 15:11:21 12/15/19 22 12/14/2021 BMP + IONIZ ED CALCI UM, SERUM OR PLASM A Hb 9.5 g/dL 12-17 Not Available [facility] [address] [place], [address], 12/14/2021 15:11:21 Result Notes None recorded. Procedures Surgical History Date Name Laterality Status Provider Name and Address Organization Details Recorded Time 12/15/19 Venipuncture - completed LIO VANCE NP [address] [place], [address], [place] [facility] 12/14/2021 19:45:24 12/15/19 ECG Interpretation - completed LIO VANCE NP [address] [place], [address], [place] [facility] 12/14/2021 19:46:52 radical prostatectomy completed LIO VANCE NP [address] [place], [address], [place] [facility] 12/14/2021 15:23:36 arterial bypass graft completed LIO VANCE NP [address], [place], [address], [place] [facility] 12/14/2021 15:23:50 Imaging Results [...] in Arterial blood by Pulse oximetry Systolic And Diastolic Systolic And Diastolic Provider Name and Address Organization Details Last Updated DateTime 102 /min 98 % 98 % 20 /min 98.2 [degF] 98.2 [degF] 20 /min 107 /min 99 % 99 % 136/58 mm[Hg] 124/68 mm[Hg] Not Available [facility] 14:48:56 Social History None recorded. Functional Status None recorded. Mental Status None recorded. Family History Nothing Reported. Medical History Condition Response Diabetes N Coronary Artery Disease Y CHF N Parkinson's Disease N Cancer N Dementia N Stroke N Depression N Asthma N COPD Y Hypothyroidism N High Cholesterol Y Rheumatoid Arthritis N Pulmonary Embolism N Hypertension Y A-fib N Osteoporosis N Kidney Disease Y Past Encounters Encounter ID Performer Location Encounter Start Date Encounter Closed Date Diagnosis/Indication Diagnosis SNOMED-CT Code Diagnosis ICD10 Code Diagnosis IMO Codes Diagnosis Note [id number] LIO VANCE NP [facility] [address] [facility] [address] 12/14/2021 14:40:12 12/15/2021 12:28:27 Near syncope 468838385 R55 Health Concerns Section Related Observation LastModified by Organization Detai ls LastModified Time None Recorded Concern Status LastModified by Organization Details LastModified Time None Recorded Advance Directives Directive None Recorded Payers Insurance Date Sequence Insurance Name Policy Number Policy Eckert Covered Member ID Eckert Member ID Guarantor Name 12/17/2021 1 [place] [employer] Mikal Elizondo [id number] Mikal Elizondo 12/14/2021 2 [employer] [id number] Mikal Elizondo [id number] Mikal Elizondo 12/14/2021 1 *SELF PAY* Mikal Elizondo [id number] Mikal Elizondo 12/14/2021 2 [employer] [id number] Mikal Elizondo [id number] Mikal Elizondo 12/14/2021 1 [place] GOVERNMENT SERVICES Mikal Elizondo [id number] Mikal Elizondo Notes Date Note Type Note Provider Name and Address Organization Details Recorded Time 12/14/2021 text/html 71 year-old male with history of PAD, CAD, HTN, HLD, COPD who calls to home to evaluate him for dizziness. He is feeling better today.Pt reports he is 2 days post DC from [facility]. Pt underwent elective EVAR with bilateral femoral [...] been no pelvic discomfort. LIO VANCE NP [address], [place], [address], [place] [facility] 12/14/2021 20:00:48
--- OUTSIDE RECORDS SUMMARY | 2024-12-25 18:18 | XMS_ITS | Data Portability ---
Author Organization [place] [facility] Address [address] [place] [address] Care Team Providers Care Railway Station Manager Name Role Phone EMMANUEL COPELAND Primary Care [...] 15 mg tablet 2024 025 [email or web address] [id number], [address] [place], [address], 5 10:49:41 Patient TargetsNo targets recorded. 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 Procedures Surgical History Date Name Laterality Status Provider Name and Address Organization Details Recorded Time 5 JZShoulder INJ completed Chad Hunter PA-C [address], [place], [address], [facility] 07/23/2024 07:40:15 5 JZShoulder INJ completed Chad Hunter PA-C [address], [place], [address], [facility] 04/23/2024 08:51:15 4 JZShoulder INJ completed Chad Hunter PA-C [address], [place], [address], [facility] 01/23/2024 08:52:21 4 JZShoulder INJ completed Chad Hunter PA-C [address] [facility], [place], [address], [facility] 10/24/2023 08:54:24 4 JZCMC Inj completed Chad Hunter PA-C [address] [facility], [place], [address], [facility] 10/24/2023 08:54:34 4 JZShoulder INJ completed Chad Hunter PA-C [address] [facility], [place], [address], [facility] 07/26/2023 13:08:59 Imaging Results [...] Updated DateTime 04/23/2024 177.8 cm 23.7 kg/m2 96041.74 g [facility] 04/23/2024 08:28:45 Date Recorded Body height Body mass index (BMI) Body weight Provider Name and Address Organization Details Last Updated DateTime 07/23/2024 177.8 cm 23.7 kg/m2 04805.74 g [facility] 07/23/2024 07:27:11 Date Recorded Body height Body mass index (BMI) Body weight Provider Name and Address Organization Details Last Updated DateTime 07/26/2023 177.8 cm 23.7 kg/m2 35949.74 g Merced Curtis [facility] 07/26/2023 13:05:11 Date Recorded Body height Body mass index (BMI) Body weight Provider Name and Address Organization Details Last Updated DateTime 10/24/2023 177.8 cm 23.7 kg/m2 74166.74 g Bayron Gaffney [facility] 10/24/2023 08:48:57 Date Recorded Body height Body mass index (BMI) Body weight Provider Name and Address Organization Details Last Updated DateTime 01/23/2024 177.8 cm 23.7 kg/m2 25155.74 g Bayron Gaffney [facility] 01/23/2024 08:49:29 Social History None recorded. Functional Status None recorded. Mental Status None recorded. Family History Nothing Reported. Medical History No medical history recorded. Past Encounters Encounter ID Performer Location Encounter Start Date Encounter Closed Date Diagnosis/Indication Diagnosis SNOMED-CT Code Diagnosis ICD10 Code Diagnosis IMO Codes Diagnosis Note [id number] GUERDA Dawson [address] [place] [address] 07/26/2023 12:43:37 08/20/2023 13:07:39 Impingement syndrome of left shoulder region 5677420975 85128 M75.42 [id number] GUERDA Dawson [address] [place] [address] 10/24/2023 08:42:15 11/19/2023 13:35:25 Impingement syndrome of left shoulder region 9851157722 14757 M75.42 Osteoarthr osis of the carpometacarpal joint of the thumb 91154275 M18.9 [id number] GUERDA Dawson [address] [place] [address] 01/23/2024 08:45:15 02/19/2024 07:48:29 Impingement syndrome of left shoulder region 7235512054 68978 M75.42 [id number] GUERDA Dawson [facility] [address] [place] [address] 04/23/2024 08:18:47 05/09/2024 12:39:46 Impingement syndrome of left shoulder region 1630454019 44927 M75.42 [id number] GUERDA Dawson [facility] [place] [address] [place] [address] 07/23/2024 07:22:30 08/04/2024 13:32:23 Impingement syndrome of left shoulder region 6898805336 81884 M75.42 Health Concerns Section Related Observation LastModified by Organization Detai ls LastModified Time None Recorded Concern Status LastModified by Organization Details LastModified Time None Recorded Advance Directives Directive None Recorded Payers Insurance Date Sequence Insurance Name Policy Number Policy Eckert Covered Member ID Eckert Member ID Guarantor Name 07/20/2024 1 [place] GOVERNMENT [place] Mikal Elizondo [id number] Mikal Elizondo 08/04/2024 2 [employer]ET[employer] (POS) [id number] Mikal Elizondo [id number] Mikal Elizondo 09/07/2023 2 UNSPECIFIED REMIT PAYOR Mikal Elizondo
--- OUTSIDE RECORDS SUMMARY | 2024-12-25 18:19 | XMS_ITS | Clinical Summary ---
Author Organization [facility] Address [address] [facility] [address] [place] [address] Phone Care Team Providers Care Digital Specialist Name Role Phone Lindy Buckner MD Primary [...] this topic Medical Devices Implanted Type Area Mononitrotoluene Operator Device Identifier Shelf Expiration Date Model / Serial / Lot Left Knee Insurance [facility] Care Teams Digital Specialist Relationship Specialty Start Date End Date Lindy Buckner MD [address] [place] [address] PCP - General Internal Medicine 06/09/22 Additional Source Comments The information contained in this document represents components of the legal health record. It is not the complete legal health record.[facility]
--- OUTSIDE RECORDS SUMMARY | 2024-12-25 18:19 | XMS_ITS | Encounter Summary ---
Author Organization [facility] Address [address] [facility] [address] [place] [address] Phone Care Team Providers Care Protection Consultant Name Role Phone Lindy Buckner MD Primary Care Provider Encounter Details Date Type Department Care Team (Late st Contact Info) Description 04/13/2023 Procedure Pass [facility]oscopy Admitting Dept Virtual Department [address] [place] [address] Social History Tobacco Use Types Packs/Day Years [...] on filedocumented in this encounter Care Teams Protection Consultant Relationship Specialty Start Date End Date Lindy Buckner MD [address] [place] [address] PCP - General Internal Medicine 06/09/22 documented as of this encounter Additional Source Comments The information contained in this document represents components of the legal health record. It is not the complete legal health record.[facility]
== END 2024-12-25 17:54 | disposition home or self-care (01) ==
PROVIDERS: Physician Assistant Medical; Emergency Provider Emergency Medicine; PCP Internal Medicine
DX: K80.20 Calculus of gallbladder without cholecystitis without obstruction (principal); R10.11 Right upper quadrant pain; J44.9 Chronic obstructive pulmonary disease, unspecified; Z79.899 Other long term (current) drug therapy
CPT/HCPCS: 36415; 80053; 83735; 85025; 99283

== ENCOUNTER 2025-01-01 11:11 | Outpatient (AMB) | payer MEDICARE, OTHER, SELFPAY ==
--- OUTSIDE RECORDS SUMMARY | 2024-08-04 09:30 | XMS_ITS ---
Author Organization Kiko Coats MD Address [address] [place], [place] [id number] Care Team Providers Care Strategy Analyst Name Role Phone Kiko Coats Primary Care Provider [phone] Allergies No Known Allergies REASON FOR VISIT PH/TcM Medications Medication SIG (Take, Route, Frequency, Duration) Notes Start Date End Date Status Ipratropium-Albuterol 0.5-2.5 (3) MG/3ML INHALE 1 VIAL EVERY 4 HOURS NEEDED INHALATION EVERY 6 HRS 30 DAYS Active Stiolto Respimat 2.5-2.5 MCG/ACT INHALE 2 PUFFS INTO THE LUNGS ONCE DAILY Active Carvedilol 25 MG 1 tablet with food Orally Twice a day Active amLODIPine Besylate 5 MG TAKE 1 TABLET B Y MOUTH ONCE A DAY FOR 30 DAY(S) Orally Once a day Active ProAir HFA 108 (90 Base) MCG/ACT 2 puffs as needed Inhalation every 4 hrs for 30 days Not-Taking Betamethasone Dipropionate 0.05 % as directed Externally daily for 30 days 02/10/2011 Not-Taking valACYclovir HCl 1 GM TAKE 2 TABLETS BY MOUTH EVERY 12 HOURS for 3 Not-Taking Qvar RediHaler 80 MCG/ACT TAKE 1 PUFF BY MOUTH TWICE A DAY Not-Taking Hydrocod Pravin-Chlorphe Pravin ER 10-8 MG/5ML 5 mL as needed Orally every 12 hrs as needed for 10 days 04/26/2023 Not-Taking Levalbuterol Tartrate 45 MCG/ACT 1 puff as needed Inhalation every 6 hrs 03/08/2023 Active Albuterol Sulfate HFA 108 (90 Base) MCG/ACT 1 puff as needed Inhalation every 4 hrs 05/07/2023 Not-Juwan gerber traMADol HCl 100 MG 1 tablet as needed Orally every 8 hours as needed 03/06/2024 Not-Taking Doxycycline Hyclate 100 MG 1 tablet Orally Once a day for 10 day(s) 03/06/2024 Not-Taking predniSONE 10 MG 1 tablet with food o r milk Orally 4 tabs for 4 days, 3 tabs for 4 days, 2 tbs for 4 days, and 1 tab for 4 days for 14 days 02/25/2024 Not-Taking Magnesium Oxide -Mg Supplement 400 (240 Mg) MG TAKE 2 TABLETS BY MOUTH ONCE DAILY WITH FOOD FOR 30 DAYS Not-Taking Jardiance 10 MG 1 tablet Orally Once a day Active Atorvastatin Calcium 40 MG TAKE 1 TABLET BY MOUTH EVERY DAY Active Levalbuterol Tartrate 45 MCG/ACT inhale 2 puffs as needed every 4 hours for 30 days Inhalation every 6 hrs Active traMADol HCl 50 MG 2 tabs as needed Ora lly Once a day for 30 days 07/24/2024 Not-Juwan gerber Cialis 20 MG 1 tablet Orally Once a day Active Triamcinolone Acetonide 0.5 % 1 application Externally Once a day for 14 days 11/15/2020 Active Multi Vitamin Daily - 1 tablet Orally On ce a day for 30 day(s) Active Aspir-81 81 MG 1 tablet Orally Once a day for 30 day(s) Active Ferrous Gluconate 324 (38 Fe) MG 1 tablet Orally once a day Active PreserVision AREDS 2 - as directed Orally Active Vitamin C 500 MG as directed Orally Not-Taking Problems Problem Type SNOMED Code ICD Code Onset Dates Problem Status W/U Status Risk Notes Problem Ulcer of esophagus (28935111) Esophageal ulcer without bleeding (K22.10) Active confirmed Vital Signs Blood pressure systolic 140 mm Hg 08/05/19 25 Blood pressure diastolic 50 mm Hg 025 Height 70 in 08/04/2024 Weight 176 lbs 08/04/2024 BMI 25.25 kg/m2 08/04/2024 weight is down 2 pounds [facility] e 05-09-24 Encounters Encounter Location Date Provider Diagnosis Kiko Coats MD [address] [place], [place] [phone] 08/04/2024 Kiko Coats Esophageal ulcer without bleeding K22.10 ; Panlobular emphysema J43.1 and Essential hypertension I10 Assessments Encounter Date Diagnosis (ICD Code) Assessment Notes Treatment Notes Treatment Clinical Notes Section Notes 08/04/2024 Esophageal ulcer without bleeding (ICD-10 - K22.10) need results of biopsy/ will send for results 08/04/2024 Panlobular emphysema (ICD-10 - J43.1) stable 08/04/2024 Essential hypertension (ICD-10 - I10) well contrlolled Plan Of Treatment Medication Medication Name Sig Start Date Stop Date Notes Ipratropium-Albuterol 0.5-2. 5 (3) MG/3ML INHALE 1 VIAL EVERY 4 HOURS NEEDED INHALATION EVERY 6 HRS 30 DAYS Stiolto Respimat 2.5-2.5 MCG/ACT INHALE 2 PUFFS INTO THE LUNGS ONCE DAILY Carvedilol 25 MG 1 tablet with food O rally Twice a day amLODIPine Besylate 5 MG TAKE 1 TABLET B Y MOUTH ONCE A DAY FOR 30 DAY(S) Orally Once a day Levalbuterol Tartrate 45 MCG/ACT 1 puff as needed Inhalation every 6 hrs 03/08/2023 Treatment Notes Assessment Notes Esophageal ulcer without bleeding need r esults of biopsy/ will send for results Panlobular emphysema stable Essential hypertension well contrlolled Next Appt Details Provider Name:Kiko chatman, 05/14/2025 07:45:00 AM, [address], [address], [place], [place], [phone], Provider Name:Kiko chatman, 05/21/2025 09:00:00 AM, [address], [address], [place], [place], [phone], Provider Name:Kiko De Leon ier, 12/10/2025 07:15:00 AM, [address] [place] [address], Suite [facility], [place], [place], [phone], Provider Name:Kiko De Leon ier, 12/17/2025 09:30:00 AM, [address] [place] [address], Suite [facility], [place], [place], [phone], Progress Notes * Mikal DENNYDOB: [birth year] (74 yo M)Acc No.[id number]:08/04/2024 Patient: Mikal VITALE Provider: La Coats MD :1950 A ge:74 Y S ex:Male Date:08/04/2024 Address:[address], [facility] Subjective: * Chief Complaints: * P H/TcM * HPI: S ymptom(s): patient is a 74 yo male her for transitional care managment visit with review of discharge summary and medications reconcilled/ had been in the hospital for chest pain and was found to have an ulcer in esophagus./ was in hospital for 1 week. * ROS: G eneral/Constitutional: Denies C hills. D enies F atigue. D enies F ever. D enies H eadache. E NT: Denies S ore throat. R espiratory: Denies C ough. D enies S hortness of breath at rest. D enies S hortness of breath with exertion. G astrointestinal: Denies D iarrhea. D enies N ausea. * Medical History: * Surgical History: * Hospitalization/Major Diagno stic Procedure: * Medications: T akingPreserVision AREDS 2 - Capsule as directed Orally [...] Tablet 1 tablet Orally once a day amLODIPine Besylate 5 MG Tablet TAKE 1 TABLET BY MOUTH ONCE A DAY FOR 30 DAY(S) Orally Once a day Carvedilol 25 MG Tablet 1 tablet with food Orally Twice a day Levalbuterol Tartrate 45 MCG/ACT Aerosol inhale 2 puffs as needed every 4 hours for 30 days Inhalation every 6 hrs Atorvastatin Calcium 40 MG Tablet TAKE 1 TABLET BY MOUTH EVERY DAY Jardiance 10 MG Tablet 1 tablet Orally Once a day Stiolto Respimat 2.5-2.5 MCG/ACT Aerosol Solution INHALE 2 PUFFS INTO THE LUNGS ONCE DAILY Ipratropium-Albuterol 0.5-2.5 (3) MG/3ML Solution INHALE 1 VIAL EVERY 4 HOURS NEEDED INHALATION EVERY 6 HRS 30 DAYS Taking PreserVision AREDS 2 - Capsule as [...] 1 tablet Orally once a day Taking amLODIPine Besylate 5 MG Tablet TAKE 1 TABLET BY MOUTH ONCE A DAY FOR 30 DAY(S) Orally Once a day Taking Carvedilol 25 MG Tablet 1 tablet with food Orally Twice a day Taking Levalbuterol Tartrate 45 MCG/ACT Aerosol inhale 2 puffs as needed every 4 hours for 30 days Inhalation every 6 hrs Taking Atorvastatin Calcium 40 MG Tablet TAKE 1 TABLET BY MOUTH EVERY DAY Taking Jardiance 10 MG Tablet 1 tablet Orally Once a day Taking Stiolto Respimat 2.5- 2.5 MCG/ACT Aerosol Solution INHALE 2 PUFFS INTO THE LUNGS ONCE DAILY Taking Ipratropium-Albuterol 0.5-2.5 (3) MG/3ML Solution INHALE 1 VIAL EVERY 4 HOURS NEEDED INHALATION EVERY 6 HRS 30 DAYS Not-Taking/PRNVitamin C 500 MG Capsule as directed Orally traMADol HCl 50 MG Tablet 2 tabs as needed Orally Once a day Magnesium Oxide -Mg Supplement 400 (240 Mg) MG Tablet TAKE 2 TABLETS BY MOUTH ONCE DAILY WITH FOOD FOR 30 DAYS predniSONE 10 MG Tablet 1 tablet with food or milk Orally 4 tabs for 4 days, 3 tabs for 4 days, 2 tbs for 4 days, and 1 tab for 4 days Doxycycline Hyclate 100 MG Tablet 1 tablet Orally Once a day traMADol HCl 100 MG Tablet 1 tablet as needed Orally every 8 hours as needed Albuterol Sulfate HFA 108 (90 Base) MCG/ACT [...] puffs as needed Inhalation every 4 hrs Not-Taking/PRN Vitamin C 500 MG Capsule as directed Orally Not-Taking/PRN traMADol HCl 50 MG Tablet 2 tabs as needed Orally Once a day Not-Taking/PRN Magnesium Oxide -Mg Supplement 400 (240 Mg) MG Tablet TAKE 2 TABLETS BY MOUTH ONCE DAILY WITH FOOD FOR 30 DAYS Not-Taking/PRN predniSONE 10 MG Tablet 1 tablet with food or milk Orally 4 tabs for 4 days, 3 tabs for 4 days, 2 tbs for 4 days, and 1 tab for 4 days Not-Taking/PRN Doxycycline Hyclate 100 MG Tablet 1 tablet Orally Once a day Not-Taking/PRN traMADol HCl 100 MG Tablet 1 tablet as needed Orally every 8 hours as needed Not-Taking/PRN Albuterol Sulfate HFA 108 (90 Base) MCG/ACT [...] puffs as needed Inhalation every 4 hrs DiscontinuedPantoprazole Sodium 40 MG Tablet Delayed Release 1 tablet Orally Once a day Medication List reviewed and reconciled with the patientDiscontinued Pantoprazole Sodium 40 MG Tablet Delayed Release 1 tablet Orally Once a day Medication List reviewed and reconciled with the patient * Allergies: N .K.D.A.yes[Allergies Verified] Objective: * Vitals: H t: 70, Wt: 176, BMI:25.25, BP:140/50, Repeat BP:120/50, Wt-k.83. weight is down 2 pounds since 05-09-24. * Examination: G eneral Examination: GENERAL APPEARANCE: a lert, well hydrated, in no distress.? HEAD: n ormocephalic. SKIN: g ood turgor. HEART: r egular rate and rhythm. LUNGS: n o wheezes, rales, rhonchi, good air movement, clear to auscultation bilaterally. Assessment: * Assessment: 1. E sophageal ulcer without bleeding - K22.10 (Primary) 2 . P anlobular emphysema - J43.1 3 . E ssential hypertension - I10 Plan: * Treatment: 2. P anlobular emphysema Continue Levalbuterol Tartrate Aerosol, 45 MCG/ACT, 1 puff as needed, Inhalation, every 6 hrs; C ontinue amLODIPine Besylate Tablet, 5 MG, TAKE 1 TABLET BY MOUTH ONCE A DAY FOR 30 DAY(S), Orally, Once a day; C ontinue Carvedilol Tablet, 25 MG, 1 tablet with food, Orally, Twice a day; C ontinue Stiolto Respimat Aerosol Solution, 2.5-2.5 MCG/ACT, INHALE 2 PUFFS INTO THE LUNGS ONCE DAILY; C ontinue Ipratropium-Albuterol Solution, 0.5-2.5 (3) MG/3ML, INHALE 1 VIAL EVERY 4 HOURS NEEDED INHALATION EVERY 6 HRS 30 DAYS. Notes: stable 3. E ssential hypertension Notes: well contrlolled * Procedure Codes: G 2211 Complex e/m visit add on * * Sign off status: Completed true * Provider: La Coats MD Date: 0 08/04/2024 Generated for Maryam fontaine/Pamela/Tishitting on: 1 03/03/2024 02:05 PM EST History and Physical Notes * HPI (History of Present Illness) Category Sub-Category Detail Notes Category Not es Symptom(s) patient is a 74 yo male her for transitional care managment visit with review of discharge summary and medications reconcilled/ had been in the hospital for chest pain and was found to have an ulcer in esophagus./ was in hospital for 1 week Examination Category Sub-Category Detail Notes Category Not es General Examination GENERAL APPEARANCE: alert, w ell hydrated, in no distress HEAD: normocephalic HEART: regular rate and rhy thm LUNGS: no wheezes, rales, r honchi, good air movement, clear to auscultation bilaterally SKIN: good turgor
--- OUTSIDE RECORDS SUMMARY | 2024-09-19 09:15 | XMS_ITS ---
Author Organization Kiko Coats MD Address [address] [place], [place] [phone] Care Team Providers Care Dishwasher Name Role Phone Kiko oCats Primary Care Provider [phone] REASON FOR VISIT refill Medications Medication SIG [...] Date Provider Diagnosis Kiko Coats MD [address] [facility] [address] [place], [place] [phone] 09/19/2024 Kiko Coats Plan Of Treatment Medication [...] Name:Kiko De Leon ier, 05/14/2025 07:45:00 AM, [address] [place] [address], [place] [address], [place], [place], [phone], Provider Name:Kiko De Leon ier, 05/21/2025 09:00:00 AM, [address] [place] [address], [place] [address], [place], [place], [phone], Provider Name:Kiko De Leon ier, 12/10/2025 07:15:00 AM, [address] [place] [address], [place] [address], [place], [place], [phone], Provider Name:Kiko De Leon ier, 12/17/2025 09:30:00 AM, [address] [place] [address], [address], [phone], Progress Notes * Mikal DENNYDOB: [birth year] (74 yo M)Acc No.[id number]:09/19/2024 Patient: Mikal VITALE :1950 A ge:74 Y S ex:Male Address:[address] [place] [address] * Refills Start RABEprazole Sodium Tablet Delayed Release, 20 MG, Orally, 30, 1 tablet 1/2 to 1 hour before a meal, Once a day, 30 day(s) Start Sucralfate Tablet, 1 GM, Orally, 120 Tablet, 1 tablet on an empty stomach, 4 times a day, 30 days * true * Date: Generated for Maryam fontaine/Pamela/Travis on: 03/03/2024 02:04 PM EST
--- OUTSIDE RECORDS SUMMARY | 2024-10-07 08:38 | XMS_ITS ---
Author Organization Kiko Coats MD Address [address] [place] [phone] Care Team Providers Care Coffee Taster Name Role Phone Kiko Coats Primary Care Provider [phone] REASON FOR VISIT refill Medications Medication SIG (Take, Route, Frequency, Duration) Notes Start Date End Date Status RABEprazole Sodium 20 MG 1 tablet 1/2 to 1 hour before a meal Orally Once a day for 90 days 09/22/2024 Active Encounters Encounter Location Date Provider Diagnosis Kiko Coats MD [address] [place] [phone] 10/07/2024 Kiko Coats Plan Of Treatment Medication Medication Name Sig Start Date Stop Date Notes RABEprazole Sodium 20 MG 1 tablet 1/2 to 1 hour before a meal Orally Once a day for 90 days 09/22/2024 Next Appt Details Provider Name:Kiko De Leon ier, 05/14/2025 07:45:00 AM, [address] [place] [address], [address], [place], [place], [phone], Provider Name:Kiko De Leon ier, 05/21/2025 09:00:00 AM, [address] [place] [address], Suite [facility], [place], [place], [phone], Provider Name:Kiko De Leon ier, 12/10/2025 07:15:00 AM, [address] [place] [address], Suite [facility], [place], [place], [phone], Provider Name:Kiko De Leon ier, 12/17/2025 09:30:00 AM, [address] [place] [address], [place] [address], [place], [place], [phone], Progress Notes * Mikal DENNYDOB: [birth year] (74 yo M)Acc No.[id number]:10/07/2024 Patient: Mikal VITALE :1950 A ge:74 Y S ex:Male Address:[address], [place] [address] * Refills Refill RABEprazole Sodium Tablet Delayed Release, 20 MG, Orally, 90, 1 tablet 1/2 to 1 hour before a meal, Once a day, 90 days, Refills=0 * true * Date: Generated for Maryam fontaine/Pamela/Tishitting on: 03/03/2024 02:06 PM EST
--- OUTSIDE RECORDS SUMMARY | 2024-11-07 05:45 | XMS_ITS ---
Author Organization Kiko Coats MD Address [address] [place] [phone] Care Team Providers Care Technology Education Instructor Name Role Phone Kiko Coats Primary Care Provider [phone] REASON FOR VISIT RE: Annual Patient Experience Survey Encounters Encounter Location Date Provider Diagnosis Kiko Coats MD [address] [place] [address] [place] [phone] 11/07/2024 Kiko Coats Plan Of Treatment Next Appt Details Provider Name:Kiko chatman, 05/14/2025 07:45:00 AM, [address] [place] [address], [address], [phone], Provider Name:Kiko chatman, 05/21/2025 09:00:00 AM, [address] [place] [address], [address], [phone], Provider Name:Kiko De Leon ier, 12/10/2025 07:15:00 AM, [address], [address], [place], [phone], Provider Name:Kiko De Leon ier, 12/17/2025 09:30:00 AM, [address], [address], [place], [place], [phone], Progress Notes * Mikal DENNYDOB: [birth year] (74 yo M)Acc No.[id number]:11/07/2024 Patient: Mikal VITALE :1950 A ge:74 Y S ex:Male Address:[address], [place] [address] * true * Date: Generated for Maryam fontaine/Pamela/Traciesmitting on: 03/03/2024 02:06 PM EST
--- OUTSIDE RECORDS SUMMARY | 2024-11-13 03:00 | XMS_ITS ---
Author Organization Kiko Coats MD Address [address] [place], [place] [id number] Care Team Providers Care Emergency Medical Service Manager Name Role Phone Jorge LTian Primary Care Provider [phone] Results Component Value Reference Range Notes Complete Blood Count Auto Di ff Reviewed date:11/13/2024 04:28:00 PM Interpretation: Performing Lab:[facility], [address] [place] [phone] Notes/Report: White Blood Count 9.2 4.8-10.8 X10*3/uL [...] NRBC Abs Auto 0.000 0.0-0.012 X10*3/uL Comprehensive [place]. Panel Fa st Reviewed date:11/13/2024 04:28:23 PM Interpretation: Performing Lab:[facility], [address] [place] [phone] Notes/Report: Sodium 142 135-145 mmol/L Potassium 3.9 [...] PROFILE Reviewed date:11/13/2024 04:19:48 PM Interpretation: Performing Lab:[facility], [address] [place] [phone] Notes/Report: Iron 63 45-160 mcg/dL Total Iron Binding Capacity 244 228-428 mcg/d L Percent Iron Saturation 26 15-50 % Unsaturated Iron Binding 181 Lipid Panel Reviewed date:11/13/2024 04:24:20 PM Interpretation: Performing Lab:[facility], [address] [place] [phone] Notes/Report: Triglycerides 283 <150 mg/dL Desirable Triglyceride: [...] (Free>4and<10) Reviewed date:11/13/2024 04:24:30 PM Interpretation: Performing Lab:[address] [phone] Notes/Report: PSA,Total (Free>4and<10) < 0.10 0.00-4.00 ng/mL [...] Random Reviewed date:11/13/2024 04:25:27 PM Interpretation: Performing Lab:[address] [phone] Notes/Report: Creatinine Urine 70.25 Microalbumin Urine 79.0 Microalbum/Creatinine Ratio Ur 112.4 <30 ug/mg cr Albumin/Creatinine Ratio Reference Ranges: Normal: < 30 ug/mg creatinine Microalbuminuria: 30 - 300 ug/mg creatinine Clinical Albuminuria: > 300 ug/mg creatinine Hemoglobin A1c Reviewed date:11/13/2024 04:19:36 PM Interpretation: Performing Lab:[address] [phone] Notes/Report: Hemoglobin A1c % 6.3 <6.0 % [...] average glucose, using the formula of the U8W-Azwzanm Average Glucose study (ADAG), Diabetes Care, Vol.31,#8, Sep. 2007 UA ClnCatch+Micro w/rflx Cul t Reviewed date:11/13/2024 04:28:44 PM Interpretation: Performing Lab:[address] [phone] Notes/Report: [id number] 0800 Urine, Clean Catch Color Urine Yellow Appearance Urine Clear PH 7.0 5.0-9.0 Glucose Urine UA >=1000 Negative mg/dL Urine Blood Negative Negative Specific [place] - Urine 1.010 1.005-1.025 Urine Protein Trace [...] Location Date Provider Diagnosis Kiko Coats MD [address] [place] [phone] 11/13/2024 Kiko Coats Type 2 diabetes mellitus [...] Details Provider Name:Kiko chatman, 05/14/2025 07:45:00 AM, [address] [place] [address], [address], [phone], Provider Name:Kiko chatman, 05/21/2025 09:00:00 AM, [address] [place] [address], [address], [phone], Provider Name:Kiko chatman, 12/10/2025 07:15:00 AM, [address] [place] [address], [address], [phone], Provider Name:Kiko chatman, 12/17/2025 09:30:00 AM, [address] [place] [address], [phone], Progress Notes * Mikal DENNYDOB: [birth year] (74 yo M)Acc No.[id number]:11/13/2024 Progress Note Patient: Mikal VITALE Provider: La Coats MD :1950 A ge:74 Y S ex:Male Date:11/13/2024 Address:[address] [facility], [facility] Subjective: * Chief Complaints: * 1 . [...] - 11/13/2024 08:00 AM) L AB: Comprehensive [place]. Panel Fast (Collection Date & Time - [...] - 11/13/2024 08:00 AM) L AB: Comprehensive [place]. Panel Fast (Collection Date & Time - [...] - 11/13/2024 08:00 AM) L AB: Comprehensive [place]. Panel Fast (Collection Date & Time - [...] - 11/13/2024 08:00 AM) L AB: Comprehensive [place]. Panel Fast (Collection Date & Time - [...] * Procedure Codes: 3 6415 VENIPUNCT, ROUTINE*, 06957 FLU VACC PRSV FREE INC ANTIG, G0008 ADMN FLU VAC NO FEE SCHED SAME DAY * * The named appointment provid er may or may not be the originator of this progress note, and it is not deemed complete until electronically signed by the appointment provider. Sign off status: Pending * Provider: La Coats MD Date: 0 11/13/2024 Generated for Maryam fontaine/Pamela/Travis on: 1 03/03/2024 02:05 PM EST
--- OUTSIDE RECORDS SUMMARY | 2024-11-17 05:30 | XMS_ITS ---
Author Organization Kiko Coats MD Address [address] [place], [place] [id number] Care Team Providers Care Investigations Manager Name Role Phone Kiko Coats Primary [...] kg/m2 11/17/2024 weight is down 3 pounds [facility] 08-04-24 Encounters Encounter Location Date Provider Diagnosis Kiko Coats MD [address] [place] [address] [place] [phone] 11/17/2024 Kiko Coats Panlobular emphysema J43.1 ; [...] 30 days Ketoconazole 2 % 1 application Barrel Plater ally Once a day for 30 days [...] Reason: Provider Name:Kiko chatman, 05/14/2025 07:45:00 AM, [address] [place] [address], [address], [place], [phone], Provider Name:Kiko chatman, 05/21/2025 09:00:00 AM, [address] [place] [address], [address], [place], [phone], Provider Name:Kiko chatman, 12/10/2025 07:15:00 AM, [address], [address], [place], [place], [phone], Provider Name:Kiko De Leon ier, 12/17/2025 09:30:00 AM, [address] [facility], [address], [place], [place], [phone], Progress Notes * Mikal DENNYDOB: [birth year] (74 yo M)Acc No.[id number]:11/17/2024 Patient: Mikal VITALE Provider: La Coats MD :1950 A ge:74 Y S ex:Male Date:11/17/2024 Address:[address], [place], [place] Subjective: * Chief Complaints: * R eview [...] Average Glucose 134 - mg/dL L ab:Comprehensive [place]. Panel Fast (Order Date - 11/13/2024) (Collection [...] 11/17/2024 Generated for Maryam fontaine/Pamela/Travis on: 1 03/03/2024 02:05 PM EST History [...]
--- OUTSIDE RECORDS SUMMARY | 2024-12-12 06:45 | XMS_ITS ---
Author Organization Kiko Coats MD Address [address] [place], [place] [phone] Care Team Providers Care Civil Engineering Teacher Name Role Phone Kiko Coats Primary Care [...] Status W/U Status Risk Notes Problem Gallstone ([id number]) Gall stones (K80.20) Active confirmed Vital Signs Blood pressure systolic 124 mm Hg 12/13/19 25 Blood pressure diastolic 60 mm Hg 025 Height 70 in 12/12/2024 Weight 168 lbs 12/12/2024 BMI 24.1 kg/m2 12/12/2024 weight is down 5 pounds [facility] e 11-17-24 Encounters Encounter Location Date Provider Diagnosis Kiko Coats MD [address] [place] [address] [place] [phone] 12/12/2024 Kiko Coats Gall stones K80.20 Assessments Encounter Date Diagnosis (ICD Code) Assessment Notes Treatment Notes Treatment Clinical Notes Section Notes 12/12/2024 Gall stones (ICD-10 - K80.20) order faxed to [facility] cs dept Plan Of Treatment Treatment Notes Assessment Notes Gall stones order faxed to [facility] s dept Pending Test Test Name Order Date US ABD 12/12/2024 Next Appt Details Follow Up: after us, Reason: Provider Name:Kiko chatman, 05/14/2025 07:45:00 AM, [address] [place] [address], [address], [phone], Provider Name:Kiko chatman, 05/21/2025 09:00:00 AM, [address] [place] [address], [address], [phone], Provider Name:Kiko de la or, 12/10/2025 07:15:00 AM, [address] [place] [address], [address], [phone], Provider Name:Kiko chatman, 12/17/2025 09:30:00 AM, [address] [place] [address], [address], [phone], Progress Notes * Mikal DENNYDOB: [birth year] (74 yo M)Acc No.[id number]:12/12/2024 Progress Notes Patient: Mikal VITALE Provider: La Coats MD :1950 A ge:74 Y S ex:Male Date:12/12/2024 Address:[address], [place] Subjective: * Chief Complaints: * S TOMACH [...] MD Date: Generated for Maryam fontaine/Pamela/eTedusmitting on: 03/03/2024 02:06 PM EST History and Physical Notes * Examination Category Sub-Category Detail Notes Category Not es General Examination GENERAL APPEARANCE: alert, w ell hydrated, in no distress ABDOMEN: no hepatosplenomegal y, no hepatosplenomegaly, abnormal with tender ruq.
--- OUTSIDE RECORDS SUMMARY | 2024-12-25 04:58 | XMS_ITS ---
Author Organization Kiko Coats MD Address [address] [place] [phone] Care Team Providers Care Civil Engineering Project Manager Name Role Phone Jorge L Kiko Primary Care Provider REASON FOR VISIT us abd result Encounters Encounter Location Date Provider Diagnosis Kiko Coats MD [address] [place] [address] [place] [phone] 12/25/2024 Kiko Coats Plan Of Treatment Next Appt Details Provider Name:Kiko chatman, 05/14/2025 07:45:00 AM, [address] [place] [address], [address], [phone], Provider Name:Kiko chatman, 05/21/2025 09:00:00 AM, [address] [place] [address], [address], [phone], Provider Name:Kiko de la or, 12/10/2025 07:15:00 AM, [address], [address], [place], [phone], Provider Name:Kiko De Leon ier, 12/17/2025 09:30:00 AM, [address], [address], [place], [phone], Progress Notes * Mikal DENNYDOB: [birth year] (74 yo M)Acc No.[id number]:12/25/2024 Patient: Mikal VITALE :1950 A ge:74 Y S ex:Male Address:[address], [place] [address] * true * Date: Generated for Maryam fontaine/Pamela/Traciesmitting on: 03/03/2024 02:04 PM EST
--- OUTSIDE RECORDS SUMMARY | 2024-12-26 09:35 | XMS_ITS ---
Author Organization Kiko Coats MD Address [address] [place] [phone] Care Team Providers Care Breakfast Host Name Role Phone Kiko Coats Primary Care Provider [phone] Encounters Encounter Location Date Provider Diagnosis Kiko Coats MD [address] [place] [address] [place] [phone] 12/26/2024 Kiko Coats Plan Of Treatment Next Appt Details Provider Name:Kiko De Leon ier, 05/14/2025 07:45:00 AM, [address] [place] [address], [place] [address], [place], [place], [phone], Provider Name:Kiko de la or, 05/21/2025 09:00:00 AM, [address] [place] [address], [place] [address], [place], [place], [phone], Provider Name:iKko chatman, 12/10/2025 07:15:00 AM, [address], [address], [place], [place], [phone], Provider Name:Kiko De Leon ier, 12/17/2025 09:30:00 AM, [address], [address], [place], [place], [phone], Progress Notes * Mikal DENNYDOB: [birth year] (74 yo M)Acc No.[id number]:12/26/2024 Patient: Mikal VITALE :1950 A ge:74 Y S ex:Male Address:[address], [place] [address] * true * Date: Generated for Maryam fontaine/Pamela/Traciesmitting on: 03/03/2024 02:05 PM EST
--- OUTSIDE RECORDS SUMMARY | 2025-01-01 08:23 | XMS_ITS ---
Author Organization Kiko Coats MD Address [address] [place] [phone] Care Team Providers Care Clinical Research Nurse Coordinator Name Role Phone Kiko Coats Primary Care Provider REASON FOR VISIT ER Encounters Encounter Location Date Provider Diagnosis Kiko Coats MD [address] [place] [address] [place] [phone] 01/01/2025 Kiko Coats Plan Of Treatment Next Appt Details Provider Name:Kiko chatman, 05/14/2025 07:45:00 AM, [address] [place] [address], [address], [phone], Provider Name:Kiko chatman, 05/21/2025 09:00:00 AM, [address] [place] [address], [address], [phone], Provider Name:Kiko chatman, 12/10/2025 07:15:00 AM, [address], [address], [place], [phone], Provider Name:Kiko De Leon lurdes, 12/17/2025 09:30:00 AM, [address] [facility] [address], [address], [place], [place], [phone], Progress Notes * Mikal DENNYDOB: [birth year] (74 yo M)Acc No.[id number]:01/01/2025 Patient: Mikal VITALE :1950 A ge:74 Y S ex:Male Address:[address], [place] [address] * * Date:
--- NOTE | 2025-01-01 11:20 | MHC.OFFVIS ---
Vital Signs 01/01/25 11:21 Height 5 ft 10 in Weight 166 lb 7.184 oz BMI 23.9 Intake Visit Reasons: Gallstones Intake Note: This patient [place] [facility] [place] for symptomatic cholelithiasis. Pt c/o; I want to take my gallbladder out . In School Suspension Coordinator Required: No Accompanied by: Spouse Allergies No Known Allergies Allergy (Verified 01/01/25 11:37) HPI HPI Gallstones: Details: 74-year-old male referred for gallstones. He went to the ER last week because of right upper quadrant pain. He had a CAT scan done the day before in [place] showing gallstones without cholecystitis. He said that he has been having this frequent right upper quadrant pain for about 3 weeks now. He said he has been unable to eat well for 3 weeks already. He thinks that he may have lost some weight because of this. He is an ex-smoker and says he quit 20 years ago. He had been diagnosed in the past to have COPD but he is not on any to supplementation. He says that this has been well controlled. He says he had been prediabetic and was on Jardiance but he had stopped taking this. [facility] Medical History (Updated 01/05/25 @ 09:35 by Vickie Templeton NP) HLD (hyperlipidemia) HTN (hypertension) Diabetes Carotid stenosis AAA (abdominal aortic aneurysm) Gallstones COPD (chronic obstructive pulmonary disease) Pulmonary emphysema Review of Systems Const Denies chills and Denies fever(s) Card Denies chest pain, Denies dyspnea and Denies dyspnea on exertion Resp Denies cough, Denies dyspnea and Denies dyspnea on exertion GI Denies hematochezia and Denies change in bowel habits Denies hematuria and Denies difficulty urinating Musc Denies back pain and Denies limited range of motion Neuro Denies focal weakness and Denies convulsions Psych Denies depression and Denies mood swings Physical Exam Vital Signs: BMI result Body Mass Index 23.9 Const General: comfortable and no acute distress Orientation/consciousness: patient oriented x3 Neck Neck: Yes no lymphadenopathy Resp Auscultation: clear to auscultation bilaterally Cardio Rhythm: regular rhythm GI Other: No Acevedo's sign Palpation (GI): Soft to palpation, nontender and no guarding Neuro General: patient oriented x3 Assessment & Plan Assessment & Plan (1) Gallstones: Code(s): K80.20 - Calculus of gallbladder without cholecystitis without obstruction Category: Medical Plan: 74-year-old male with right upper quadrant pain, with gallstones on a CAT scan done last week at [facility]. He says that he has been haviing frequent episodes and has had poor oral intake for 3 weeks now because of this. He also had an ultrasound done showing gallstones recently. I therefore explained to him the option of proceeding with laparoscopic cholecystectomy for symptomatic gallstones. I explained the technique of this procedure. I reviewed the risks including but not limited to bleeding, infections, injury to other organs including bowel, liver and the bile duct, retained stones, bile leak, as well as the benefits and alternatives. I explained to him what to expect postoperatively He understands and agrees to proceed We will try to do the gallbladder surgery next week in view of his recurrent pain. His was with him during the visit. He has not been taking Jardiance for over a week now. Coding Level of Care Code New Pt Level 3 (30585) Diagnoses Gallstones K80.20
[2025-01-01 11:21] VITALS: BMI 23.9
--- OUTSIDE RECORDS SUMMARY | 2025-01-01 14:04 | XMS_ITS | Encounter Summary ---
Author Organization [facility] Address [address] [facility] [address] [place] [address] Phone Care Team Providers Care Blast Furnace Blower Name Role Phone Lindy Buckner MD Primary Care Provider Encounter Details Date Type Department Care Team (Late st Contact Info) Description 03/02/2023 Procedure Pass [facility] Endoscopy Admitting Dept Virtual Department [address] [place] [address] Social History Tobacco Use Types Packs/Day Years [...] on filedocumented in this encounter Care Teams Blast Furnace Blower Relationship Specialty Start Date End Date Lindy Buckner MD [address] [place] [address] PCP - General Internal Medicine 06/09/22 documented as of this encounter Additional Source Comments The information contained in this document represents components of the legal health record. It is not the complete legal health record.[facility]
--- OUTSIDE RECORDS SUMMARY | 2025-01-01 14:04 | XMS_ITS | Encounter Summary ---
Author Organization [facility] Address [address] [facility] [address] [place] [address] Phone Care Team Providers Care Start Up Specialist Name Role Phone Lindy Buckner MD Primary Care Provider [phone] Encounter Details Date Type Department Care Team (Late st Contact Info) Description 08/10/2022 Procedure Pass [facility] Endoscopy Admitting Dept Virtual Department [address] [place] [address] Social History Tobacco Use Types Packs/Day Years [...] on filedocumented in this encounter Care Teams Start Up Specialist Relationship Specialty Start Date End Date Lindy Buckner MD [address] [place] [address] PCP - General Internal Medicine 06/09/22 documented as of this encounter Additional Source Comments The information contained in this document represents components of the legal health record. It is not the complete legal health record.[facility]
--- OUTSIDE RECORDS SUMMARY | 2025-01-01 14:05 | XMS_ITS | Data Portability ---
Author Organization [place] [facility], [facility] Address [address] [place] [address] Care Team Providers Care Punch Press Operator Name Role Phone EMMANUEL COPELAND Primary Care Provider [phone] Assessment Encounter Date Assessment Date Assessment LastModified [...] 15 mg tablet 2024 025 [email or web address] [id number], [address] [place], [address], 5 10:49:41 Patient TargetsNo targets recorded. 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 Procedures Surgical History Date Name Laterality Status Provider Name and Address Organization Details Recorded Time 5 JZShoulder INJ completed Chad Hunter PA-C [address], [place], [address], [facility] 07/23/2024 07:40:15 5 JZShoulder INJ completed Chad Hunter PA-C [address], [place], [address], [facility] 04/23/2024 08:51:15 4 JZShoulder INJ completed Chad Hunter PA-C [address], [place], [address], [facility] 01/23/2024 08:52:21 4 JZShoulder INJ completed Chad Hunter PA-C [address] [facility], [place], [address], [facility] 10/24/2023 08:54:24 4 JZCMC Inj completed Chad Hunter PA-C [address] [facility], [place], [address], [facility] 10/24/2023 08:54:34 4 JZShoulder INJ completed Chad Hunter PA-C [address] [facility], [place], [address], [facility] 07/26/2023 13:08:59 [...] Updated DateTime 04/23/2024 177.8 cm 23.7 kg/m2 42111.74 g [facility] 04/23/2024 08:28:45 Date Recorded Body height Body mass index (BMI) Body weight Provider Name and Address Organization Details Last Updated DateTime 07/23/2024 177.8 cm 23.7 kg/m2 19990.74 g [facility] 07/23/2024 07:27:11 Date Recorded Body height Body mass index (BMI) Body weight Provider Name and Address Organization Details Last Updated DateTime 07/26/2023 177.8 cm 23.7 kg/m2 05285.74 g Mreced Curtis [facility] 07/26/2023 13:05:11 Date Recorded Body height Body mass index (BMI) Body weight Provider Name and Address Organization Details Last Updated DateTime 10/24/2023 177.8 cm 23.7 kg/m2 61120.74 g Bayron Gaffney [facility] 10/24/2023 08:48:57 Date Recorded Body height Body mass index (BMI) Body weight Provider Name and Address Organization Details Last Updated DateTime 01/23/2024 177.8 cm 23.7 kg/m2 79241.74 g Bayron Gaffney [facility] 01/23/2024 08:49:29 Social History None recorded. Functional Status None recorded. Mental Status None recorded. Family History Nothing Reported. Medical History No medical history recorded. Past Encounters Encounter ID Performer Location Encounter Start Date Encounter Closed Date Diagnosis/Indication Diagnosis SNOMED-CT Code Diagnosis ICD10 Code Diagnosis IMO Codes Diagnosis Note [id number] GUERDA Dawson [address] [place] [address] 07/26/2023 12:43:37 08/20/2023 13:07:39 Impingement syndrome of left shoulder region 3373002086 97205 M75.42 [id number] GUERDA Dawson [address] [place] [address] 10/24/2023 08:42:15 11/19/2023 13:35:25 Impingement syndrome of left shoulder region 2514630134 87153 M75.42 Osteoarthr osis of the carpometacarpal joint of the thumb 69656958 M18.9 [id number] GUERDA Dawson [address] [place] [address] 01/23/2024 08:45:15 02/19/2024 07:48:29 Impingement syndrome of left shoulder region 1876048002 20512 M75.42 [id number] GUERDA [facility] [address] [place] [address] 04/23/2024 08:18:47 05/09/2024 12:39:46 Impingement syndrome of left shoulder region 0719998676 55155 M75.42 [id number] GUERDA Dawson [facility] [address] [place] [address] 07/23/2024 07:22:30 08/04/2024 13:32:23 Impingement syndrome of left shoulder region 0576325421 75113 M75.42 Health Concerns Section Related Observation LastModified by Organization Detai ls LastModified Time None Recorded Concern Status LastModified by Organization Details LastModified Time None Recorded Advance Directives Directive None Recorded Payers Insurance Date Sequence Insurance Name Policy Number Policy Eckert Covered Member ID Eckert Member ID Guarantor Name 07/20/2024 1 [place] [employer] Mikal Elizondo [id number] Mikal Elizondo 08/04/2024 2 [employer] (POS) [id number] Mikal Elizondo [id number] Mikal Elizondo 09/07/2023 2 UNSPECIFIED REMIT PAYOR Mikal Elizondo
--- OUTSIDE RECORDS SUMMARY | 2025-01-01 14:05 | XMS_ITS | Encounter Summary ---
Author Organization [facility] Address [address] [facility] [address] [place] [address] Phone Care Team Providers Care Battery Assembler Plastic Name Role Phone Lindy Buckner MD Primary Care Provider Encounter Details Date Type Department Care Team (Late st Contact Info) Description 04/13/2023 Procedure Pass [facility]oscopy Admitting Dept Virtual Department [address] [place] [address] Social History Tobacco Use Types Packs/Day Years [...] on filedocumented in this encounter Care Teams Battery Assembler Plastic Relationship Specialty Start Date End Date Lindy Buckner MD [address] [place] [address] PCP - General Internal Medicine 06/09/22 documented as of this encounter Additional Source Comments The information contained in this document represents components of the legal health record. It is not the complete legal health record.[facility]
--- OUTSIDE RECORDS SUMMARY | 2025-01-01 14:05 | XMS_ITS | Data Portability ---
Author Organization [place] [facility] Address [address] [place] [id number] Care Team Providers Care Water Attendant Name Role Phone DRUERASMO SHEPPARDN Primary Care Provider [phone] [facility] OTHER [phone] Assessment Encounter Date Assessment Date Assessment LastModified [...] ionized [facility], serum or [facility], [address] [place], [address], 05:01:37 urinalysis , dipstick 2021 022 [email or web address], [address] [place], [address], 15:29:23 Referral None recorded. Procedures None recorded. Surgeries None recorded. Imaging None recorded. Medication Orders None recorded. Patient TargetsNo targets recorded. Patient Instructions Encounter Date Encounter Id Patient Instructions Last Modified By Organization Details Last Modified Time 12/14/2021 [id number] [facility] came to your home [...] , dipst ick Appearance clear Not Available [facility] - [facility]me [address], [place], [address], 12/14/2021 15:12:58 12/15/1912/14/2021 urina lysis , dipst ick Color yellow Not Available [facility] [address] [place], [address], 12/14/2021 15:12:58 12/15/19 22 12/14/2021 urina lysis , dipst ick Glucose (ref: neg Neg Not Available [facility] [address] [place], [address], 12/14/2021 15:12:58 12/15/1912/14/2021 urina lysis , dipst ick Bilirubin (ref: neg) Neg Not Available [facility] [address] [place], [address], 12/14/2021 15:12:58 12/15/1912/14/2021 urina lysis , dipst ick Ketones (ref: neg) Neg Not Available [facility] [address] [place], [address], 12/14/2021 15:12:58 12/15/1912/14/2021 urina lysis , dipst ick Specific Climax (ref: 1.003 - 1.035) 1.020 Not Available [facility] [address] [place], [address], 12/14/2021 15:12:58 12/15/19 22 12/14/2021 urina lysis , dipst ick Blood (ref: neg) Neg Not Available [facility] [address], [place], [address], 12/14/2021 15:12:58 12/15/1912/14/2021 urina lysis , dipst ick pH (ref: 5.0-7.0) 5.0 Not Available [facility] [address] [place], [address], 12/14/2021 15:12:58 12/15/19 22 12/14/2021 urina lysis , dipst ick Protein (ref: neg) Neg Not Available [facility] [address] [place], [address], 12/14/2021 15:12:58 12/15/1912/14/2021 urina lysis , dipst ick Urobilinogen (ref: 0.2-1.0) 0.2 Not Available [facility] [address] [place], [address], 12/14/2021 15:12:58 12/15/1912/14/2021 urina lysis , dipst ick Nitrites (ref: neg) negati ve Not Available [facility] [address] [place], [address], 12/14/2021 15:12:58 12/15/1912/14/2021 urina lysis , dipst ick Leukocytes (ref: neg) Not Available [facility] [address] [place], [address], 12/14/2021 15:12:58 12/15/1912/14/2021 urina lysis , dipst ick [facility], [address] [place] [address], [id number] Not Available [facility] [address] [place], [address], 12/14/2021 15:12:58 12/15/19 22 12/14/2021 BMP + IONIZ ED CALCI UM, SERUM OR PLASM A glu 179 mg/dL 70-105 Not Available [facility] [address] [place], [address], 12/14/2021 15:11:21 12/15/19 22 12/14/2021 BMP + IONIZ ED CALCI UM, SERUM OR PLASM A BUN 24 mg/dL 8-26 Not Available [facility] [address] [place], [address], 12/14/2021 15:11:21 12/15/19 22 12/14/2021 BMP + IONIZ ED CALCI UM, SERUM OR PLASM A crea 1.9 mg/dL 0.6-1. 3 Not Available [address], [address], 12/14/2021 15:11:21 12/15/19 22 12/14/2021 BMP + IONIZ ED CALCI UM, SERUM OR PLASM A Na 136 mmol/ L 138-14 6 Not Available [address], [address], 12/14/2021 15:11:21 12/15/19 22 12/14/2021 BMP + IONIZ ED CALCI UM, SERUM OR PLASM A K 4.0 mmol/ L 3.5-4. 9 Not Available [address], [address], 12/14/2021 15:11:21 12/15/19 22 12/14/2021 BMP + IONIZ ED CALCI UM, SERUM OR PLASM A cL 99 mmol/ L 98-109 Not Available [address], [address], 12/14/2021 15:11:21 12/15/19 22 12/14/2021 BMP + IONIZ ED CALCI UM, SERUM OR PLASM A TCO2 24 mmol/ L 24-29 Not Available [address], [address], 12/14/2021 15:11:21 12/15/19 22 12/14/2021 BMP + IONIZ ED CALCI UM, SERUM OR PLASM A angap 18 mmol/ L 10-20 Not Available [address], [address], 12/14/2021 15:11:21 12/15/19 22 12/14/2021 BMP + IONIZ ED CALCI UM, SERUM OR PLASM A ica 1.15 mmol/ L 1.12-1 .32 Not Available [facility] [address] [place], [address], 12/14/2021 15:11:21 12/15/19 22 12/14/2021 BMP + IONIZ ED CALCI UM, SERUM OR PLASM A HCT 28 %pcv 38-51 Not Available [facility] [address] [place], [address], 12/14/2021 15:11:21 12/15/19 22 12/14/2021 BMP + IONIZ ED CALCI UM, SERUM OR PLASM A Hb 9.5 g/dL 12-17 Not Available [facility] [address] [place], [address], 12/14/2021 15:11:21 Result Notes None recorded. Procedures Surgical History Date Name Laterality Status Provider Name and Address Organization Details Recorded Time 12/15/19 Venipuncture - completed LIO VANCE NP [address] [place], [address], [place] [facility] 12/14/2021 19:45:24 12/15/19 ECG Interpretation - completed LIO VANCE NP [address] [place], [address], [place] [facility] 12/14/2021 19:46:52 radical prostatectomy completed LIO VANCE NP [address] [place], [address], [place] [facility] 12/14/2021 15:23:36 arterial bypass graft completed LIO VANCE NP [address], [place], [address], [place] [facility] 12/14/2021 15:23:50 Imaging Results [...] N Cancer N Dementia N Stroke N Hypothyroidism N Depression N COPD Y Asthma N High Cholesterol Y Rheumatoid Arthritis N Pulmonary Embolism N Hypertension Y A-fib N Osteoporosis N Kidney Disease Y Past Encounters Encounter ID Performer Location Encounter Start Date Encounter Closed Date Diagnosis/Indication Diagnosis SNOMED-CT Code Diagnosis ICD10 Code Diagnosis IMO Codes Diagnosis Note [id number] LIO VANCE NP [facility] [address] [facility] [address] 12/14/2021 14:40:12 12/15/2021 12:28:27 Near syncope [id number] R55 Health Concerns Section Related Observation LastModified by Organization Detai ls LastModified Time None Recorded Concern Status LastModified by Organization Details LastModified Time None Recorded Advance Directives Directive None Recorded Payers Insurance Date Sequence Insurance Name Policy Number Policy Eckert Covered Member ID Eckert Member ID Guarantor Name 12/17/2021 1 [place] [employer] Mikal Elizondo [id number] Mikal Elizondo 12/14/2021 2 [employer] [id number] Mikal Elizondo [id number] Mikal Elizondo 12/14/2021 1 *SELF PAY* Mikal Elizondo [id number] Mikal Elizondo 12/14/2021 2 [employer] [id number] Mikal Elizondo [id number] Mikal Elizondo 12/14/2021 1 [place] [employer] Mikal Elizondo [id number] Mikal Elizondo Notes Date Note Type Note Provider Name and Address Organization Details Recorded Time 12/14/2021 text/html 71 year-old male with history of PAD, CAD, HTN, HLD, COPD who calls to home to evaluate him for dizziness. He is feeling better today.Pt reports he is 2 days post DC from [facility]. Pt underwent elective EVAR with bilateral [...] discomfort. LIO VANCE NP [address], [place], [address], [place] [facility] 12/14/2021 20:00:48
--- OUTSIDE RECORDS SUMMARY | 2025-01-01 14:05 | XMS_ITS | Encounter Summary ---
Author Organization [facility] Address [address] [place] [address] Phone Care Team Providers Care Public School Teacher Name Role Phone Lindy Buckner MD Primary Care Provider Encounter Details Date Type Department Care Team (Late st Contact Info) Description 06/09/2022 Procedure Pass [facility] Endoscopy Admitting Dept Virtual Department [address] [place] [phone] Social History Tobacco Use Types Packs/Day Years [...] on filedocumented in this encounter Care Teams Public School Teacher Relationship Specialty Start Date End Date Lindy Buckner MD [address] [place] [address] PCP - General Internal Medicine 06/09/22 documented as of this encounter Additional Source Comments The information contained in this document represents components of the legal health record. It is not the complete legal health record.[facility]
--- OUTSIDE RECORDS SUMMARY | 2025-01-01 14:05 | XMS_ITS | Clinical Summary ---
Author Organization [facility] Address [address] [place] [phone] Phone Care Team Providers Care Candle Molder Hand Name Role Phone Lindy Buckner MD Primary [...] TOBACCO SCREENING 1961 HEPATITIS C SCREENING 1966 COLOGUARD 1993 FIT TEST 1993 FOBT 1993 SIGMOIDOSCOPY 1993 VIRTUAL COLONOSCOPY 1993 Adult Td,Tdap Booster 12/06/2016 12/06/2006, 007 RSV VACCINE (1 - 1-dose 75+ series) 2023 INFLUENZA VACCINE (#1) 2024 , 11/18/2021, 11/15/2020, Additional history exists COVID-19 VACCINE ( season) 2024 01/10/2021 COLONOSCOPY 06/10/2027 05/11/2023, 06/09/2022 COLORECTAL CANCER SCREENING 06/10/2027 PNEUMOCOCCAL VACCINES (50+ years) Completed 05/06/2018, 10/11/2015, 08/03/2014, Additional history exists ZOSTER VACCINES Completed 02/25/2020, 10/20, 11/04/2012 HEPATITIS A VACCINES Aged Out No long er eligible based on patient's age to complete this topic HIB VACCINES Aged Out No longer eligi ble based on patient's age to complete this topic IPV VACCINES Aged Out No longer eligi ble based on patient's age to complete this topic MENINGOCOCCAL VACCINES (ACWY) Aged Out No longer eligible based on patient's age to complete this topic MENINGOCOCCAL VACCINES (B) Aged Out N o longer eligible based on patient's age to complete this topic Medical Devices Implanted Type Area Almond Paste Molder Device Identifier Shelf Expiration Date Model / Serial / Lot Left Knee Procedures Procedure Name Priority Date/Time Associated Diagnosis Comments HM COLONOSCOPY FOR RESULT ENTRY ONLY Routine 05/11/2023 from Last 3 Months or Most Recently Relevant to Health Maintenance Results * COLONOSCOPY FOR RESULT ENTRY ONLY (05/11/2023) HM Colonoscopy External us Historical Provider MD HEALTH MAINTENANCE Final Result from Last 3 Months or Most Recently Relevant to Health Maintenance Insurance Care Teams Candle Molder Hand Relationship Specialty Start Date End Date Lindy Buckner MD [address] [place] [address] PCP - General Internal Medicine 06/09/22 Additional Source Comments The information contained in this document represents components of the legal health record. It is not the complete legal health record.[facility]
--- OUTSIDE RECORDS SUMMARY | 2025-01-01 14:06 | XMS_ITS | Patient Health Record ---
Author Organization Kiko Coats MD Address [address] [place], [place] [address] Care Team Providers Care Senior Manufacturing Test Engineer Name Role Phone JakeKiko calabrese Primary Care Provider [phone] Allergies No Known Allergies Results Component Value Reference Range Notes Hemoglobin A1c Reviewed date:01/28/2024 10:57:43 AM Interpretation: Performing Lab: Notes/Report: Hemoglobin A1c 6.1 Complete Blood Count Auto Di ff Reviewed date:11/13/2024 04:28:00 PM Interpretation: Performing Lab:[facility], [address] [place] [address] Notes/Report: White Blood Count 9.2 4.8-10.8 X10*3/uL [...] NRBC Abs Auto 0.000 0.0-0.012 X10*3/uL Comprehensive [place]. Panel Fa st Reviewed date:11/13/2024 04:28:23 PM Interpretation: Performing Lab:[facility], [address] [place] [phone] Notes/Report: Sodium 142 135-145 mmol/L Potassium 3.9 [...] PROFILE Reviewed date:11/13/2024 04:19:48 PM Interpretation: Performing Lab:[address] [address] Notes/Report: Iron 63 45-160 mcg/dL Total Iron Binding Capacity 244 228-428 mcg/dL Percent Iron Saturation 26 15-50 % Unsaturated Iron Binding 181 Lipid Panel Reviewed date:11/13/2024 04:24:20 PM Interpretation: Performing Lab:[address] [address] Notes/Report: Triglycerides 283 <150 mg/dL Desirable Triglyceride: [...] (Free>4and<10) Reviewed date:11/13/2024 04:24:30 PM Interpretation: Performing Lab:[address] [address] Notes/Report: PSA,Total (Free>4and<10) < 0.10 0.00-4.00 ng/mL [...] Random Reviewed date:11/13/2024 04:25:27 PM Interpretation: Performing Lab:[address] [address] Notes/Report: Creatinine Urine 70.25 Microalbumin Urine 79.0 Microalbum/Creatinine Ratio Ur 112.4 <30 ug/mg cr Albumin/Creatinine Ratio Reference Ranges: Normal: < 30 ug/mg creatinine Microalbuminuria: 30 - 300 ug/mg creatinine Clinical Albuminuria: > 300 ug/mg creatinine Hemoglobin A1c Reviewed date:11/13/2024 04:19:36 PM Interpretation: Performing Lab:[address] [address] Notes/Report: Hemoglobin A1c % 6.3 <6.0 % [...] average glucose, using the formula of the A3Q-Faluurc Average Glucose study (ADAG), Diabetes Care, Vol.31,#8, Sep. 2007 UA ClnCatch+Micro w/rflx Cul t Reviewed date:11/13/2024 04:28:44 PM Interpretation: Performing Lab:[address] [address] Notes/Report: [id number] 0800 Urine, Clean Catch Color Urine Yellow Appearance Urine Clear PH 7.0 5.0-9.0 Glucose Urine UA >=1000 Negative mg/dL Urine Blood Negative Negative Specific [place] - Urine 1.010 1.005-1.025 Urine Protein Trace [...] date:03/07/2024 12:57:23 PM Interpretation: Performing Lab: Notes/Report: [facility] [address] [place] [address] XRay Report Signed Patient: Mikal Elizondo MR#: [id number] : 1950 Acct:[id number] Age/Sex: 73 / M ADM Date: 03/06/24 Loc: [facility] Attending Dr: Kiko Coats MD Ordering Physician: Kiko Coats MD Date of Service: 03/06/24 Procedure(s): XR chest 2V Accession Number(s): [id number] cc: Kiko Coats MD EXAMINATION: XR CHEST [...] by: Que Lopez MD 03/07/2024 12:12 PM [facility] [place] Dictated By: Que Wilkinson MD Signed By: <Electronically signed by Que Felix MD in OV> 03/07/24 1212 DD/ 1406 TD/TT: 03/06/24 1410 Salvage Engineering Technician: [facility] [place] [address] XRay Report Signed Patient: Yadira Elizondo MR#: [id number] : 1950 Acct:[id number] Age/Sex: 73 / M ADM Date: 03/06/24 Loc: [facility] Attending Dr: Kiko Coats MD Ordering Physician: Kiko Coats MD Date of Service: 03/06/24 Procedure(s): XR chest 2V Accession Number(s): [id number] cc: Kiko Coats MD EXAMINATION: XR CHEST [...] by: Que Lopez MD 03/07/2024 12:12 PM [facility] [place] Dictated By: Que Grullon MD Signed By: <Electronically signed by Que Felix MD in OV> 03/07/24 1212 DD/ 1406 TD/TT: 03/06/24 1410 Salvage Engineering Technician: Liver Panel Reviewed date:05/05/2024 12:51:46 PM Interpretation: Performing Lab:[facility], [address] [place] [address] Notes/Report: Bilirubin Total 0.4 0.0-1.0 mg/dL Bilirubin Direct 0.2 0.0-0.5 mg/dL Aspartate Amino Transferase 21 5-37 U/L Alanine Aminotransferase 24 0-40 U/L Total Protein 7.0 6.5-8.0 g/dL Albumin Level 4.0 3.5-5.0 g/dL Alkaline Phosphatase 51 39-117 U/L Glucose Fasting Reviewed date:05/05/2024 12:52:03 PM Interpretation: Performing Lab:[address] [address] Notes/Report: Glucose Fasting 97 60-99 mg/dL Lipid Panel with Reflex Reviewed date:05/05/2024 04:32:27 PM Interpretation: Performing Lab:[address] [address] Notes/Report: Triglycerides 251 <150 mg/dL Desirable Triglyceride: [...] A1c Reviewed date:05/05/2024 11:59:28 AM Interpretation: Performing Lab:[address] [address] Notes/Report: Hemoglobin A1c % 6.1 <6.0 % [...] average glucose, using the formula of the D3C-Xcoozqc Average Glucose study (ADAG), Diabetes Care, Vol.31,#8, Sep. 2007 XR clavicle RT Reviewed date:10/17/2024 06:49:30 PM Interpretation: Performing Lab: Notes/Report: [facility] [address] [place] [address] [place] [address] XRay Report Signed Patient: Mikal Elizondo MR#: [id number] : 1950 Acct:[id number] Age/Sex: 74 / M ADM Date: 10/15/24 Loc: [facility] Attending Dr: Isela Reyes PA-C Ordering Physician: ISELA REYES Date of Service: 10/15/24 Procedure(s): XR clavicle RT Accession Number(s): [id number] cc: Kiko Coats MD; ISELA REYES EXAMINATION: [...] 10/15/24 0941 DD/ 0818 TD/TT: 10/15/24 0920 Salvage Engineering Technician: [facility] [address] [place] [address] XRay Report Signed Patient: Yadira Elizondo MR#: [id number] : 1950 Acct:[id number] Age/Sex: 74 / M ADM Date: 10/15/24 Loc: [facility] Attending Dr: Anna Reyes PA-C Ordering Physician: ISELA REYES Date of Service: 10/15/24 Procedure(s): XR cla vicle RT Accession Number(s): [id number] cc: Kiko Coats MD; ISELA REYES EXAMINATION: [...] in OV> 10/15/[address] DD/ 7 TD/TT: 10/15/24919 Salvage Engineering Technician: Reason For Referral Reason please zenia fernandes Diagnosis 1 Esophageal ulcer wit hout bleeding (K22.10) Referral Organization Kiko Coats MD Referring Provider First Name Kiko Referring Provider Last Name Jorge L Referring Provider Speciality Internal M edicine Referred Provider [facility] Referred Provider Specialty Gastroentero [...] 11/19/2012 Administered flu vac giv en at [facility] Fluarix Quadrivalent IM Intramuscular 11/14/2013 Administe red Fluarix Quadrivalent IM Intramuscular 12/14/2014 Administe red Prevnar 13 Unknown 07/22/2014 Administered [facility] [place] PPSV23 (Pnemovax) IM Intramuscular 10/11/2015 Administered Fluarix Quadrivalent IM Intramuscular 10/26/2015 Adm[facility] smiley Shingles Unknown 11/04/2012 Administered done at the [facility] Fluarix Quadrivalent IM Intramuscular 01/19/2017 Admintroy red Fluarix Quadrivalent IM Intramuscular 12/03/2017 Adm[facility] smiley TDaP Unknown 07/30/2006 Administered At the [facility] Fluarix Quadrivalent IM Intramuscular 11/05/2018 Adm[facility]roy smiley pt was given the vaccine at the [facility]. Influenza High Dose Unknown 11/04/2019 [facility]ered [facility] [place] Shingrix Unknown 11/04/2019 [facility] [place] Shingrix Unknown 02/25/2020 [facility] SARS-COV-2 Moderna [...] Status Risk Notes Problem Carotid artery disease (794067071) Carotid artery disease (I77.9) Active confirmed Problem Dysphagia (96234228) Dysphagia (R13.10) Active confirmed Problem 079521643 Hypomagnesemia (E83.42) Active confirmed Problem 10024573 Hypercalcemia (E83.52) Active confirmed Problem 94436883 Other chronic pa in (G89.29) Active confirmed Problem 9314998 Panlobular emphysema (J43.1) Active confirmed Problem 535701341383891 Erectile dysfunction due to arterial insufficiency (N52.01) Active confirmed Problem 939999383 Lumbar disc disease (M51.9) Active confirmed Problem 10326616 Essential hypertension (I10) Active confirmed Problem 473749828 Prostate cancer (C61) Active confirmed Problem Psoriasis (5014502) Psoriasis (L40.9) Active co nfirmed Problem 97015889 Type 2 diabetes mellitus without complication (E11.9) Active confirmed Problem 03086327 Abdominal aortic aneurysm without rupture (I71.4) Active confirmed Problem 540102315 Low HDL (under 4 0) (E78.6) Active confirmed Problem 995572824 Anemia, unspecified anemia type (D64.9) Active confirmed Problem 763954600 High triglycerid es (E78.1) Active confirmed Problem 590133745 Cervical disc disease (M50.90) Active confirmed Problem 94827826 Intrinsic eczema (L20.84) Active confirmed Problem 377320140 Raynauds disease without gangrene (I73.00) Active confirmed Problem Gallstone (101225067) Gall stones (K80.20) Active confirmed Problem 460124259 COPD exacerbatio n (J44.1) Active confirmed Problem Atherosclerosis (85847090) Atherosclerosis (I70.90) Active confirmed Problem Leukocytosis (346052291) Elevated WBC count (D72.829) Active confirmed Problem 428207222 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) Active confirmed Problem 208286356 Nodule of tongue (R22.0) Active confirmed Problem 63792674 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) Active confirmed Problem 105884933 COPD with exacerbation (J44.1) Active confirmed Problem 2108321984806617 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) Active confirmed Problem 811794744 Low blood magnesium (R79.0) Active confirmed Problem 827658081 Age-related incipient cataract of both eyes (H25.093) Active confirmed Problem 108296299 Arthritis, 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) Active confirmed Problem Ulcer of esophagus (13736262) Esophageal ulcer without bleeding (K22.10) Active confirmed [...] Kiko Coats MD [address] [place] [id number] 11/13/2024 Kiko Coats Type 2 diabetes mellitus without complication E11.9 ; Encounter for administration of vaccine Z23 ; Essential hypertension I10 ; Low HDL (under 40) E78.6 ; Anemia, unspecified anemia type D64.9 and High triglycerides E78.1 Kiko Coats MD [address] [place] [id number] 01/28/2024 Kiko Coats Type 2 diabetes mellitus without complication E11.9 ; Skin lesion L98.9 and Panlobular emphysema J43.1 Kiko Coats MD [address] [place] [id number] 02/25/2024 Kiko Coats COPD with exacerbati on J44.1 Kiko Coats MD [address] [place] [id number] 03/06/2024 Kiko Coats Lumbar disc disease M51.9 and Bronchitis J40 Kiko Coats MD [address] [place] [id number] 05/09/2024 Kiko Coats Panlobular emphysema J43.1 ; Type 2 diabetes mellitus without complication E11.9 and Low HDL (under 40) E78.6 Kiko Coats MD [address] [place] [address] [id number] 08/04/2024 Kiko Coats Esophageal ulcer without bleeding K22.10 ; Panlobular emphysema J43.1 and Essential hypertension I10 Kiko Coats MD [address] [place] [address] [id number] 11/17/2024 Kiko Coats Panlobular emphysema J43.1 ; Tinea B35.9 ; Type 2 diabetes mellitus without complication E11.9 ; Prostate cancer C61 ; Essential hypertension I10 ; High triglycerides E78.1 ; Anemia, unspecified anemia type D64.9 and Depression screening Z13.31 Kiko Coats MD [address] [place] [address] [id number] 12/12/2024 Kiko Coats Gall stones K80.20 Kiko Coats MD [address] [place] [address] [id number] 01/01/2025 Kiko Coats MD [address] [place] [id number] 03/14/2024 Kiko Coats Lumbar disc disease M51.9 Kiko Coats MD [address] [place] [address] [id number] 07/24/2024 Kiko Coats MD [address] [place] [address] [id number] 07/31/2024 Kiko Coats MD [address] [place] [address] [id number] 09/19/2024 Kiko Coats MD [address] [place] [address] [id number] 10/07/2024 Kiko Coats MD [address] [place] [address] [id number] 12/25/2024 Kiko Coats MD [address] [place] [address] [id number] 12/26/2024 Kiko Coats MD [address] [place] [address] [id number] 11/07/2024 Kiko Coats Assessments Encounter Date Diagnosis (ICD Code) Assessment Notes Treatment Notes Treatment Clinical Notes Section Notes 11/13/2024 Type 2 diabetes mellitus without complication (ICD-10 - E11.9) 11/13/2024 Encounter for administration of vaccine (ICD-10 - Z23) 01/28/2024 Type 2 diabetes mellitus without complication (ICD-10 - E11.9) good a1c 01/28/2024 Skin lesion (ICD-10 - L98.9) will refer to derm 02/25/2024 COPD with exacerbation (ICD-10 - J44.1) patient verbalized understanding of medication and directions for use 03/06/2024 Lumbar disc disease (ICD-10 - M51.9) 03/06/2024 Bronchitis (ICD-10 - J40) patient verbalized understanding of medication and directions for use. x-ray order faxed to [facility] 05/09/2024 Panlobular emphysema (ICD-10 - J43.1) doing well using his updrafts once a day, will continue current regiment 08/04/2024 Esophageal ulcer without bleeding (ICD-10 - K22.10) need results of biopsy/ will send for results 11/17/2024 Panlobular emphysema (ICD-10 - J43.1) stable, will continue current regiment 11/17/2024 Tinea (ICD-10 - B35.9) 12/12/2024 Gall stones (ICD-10 - K80.20) order faxed to [facility] 03/14/2024 Lumbar disc disease (ICD-10 - M51.9) 11/13/2024 Essential hypertension (ICD-10 - I10) 01/28/2024 Panlobular emphysema (ICD-10 - J43.1) doing well 05/09/2024 Type 2 diabetes mellitus without complication (ICD-10 - E11.9) doing well, will contnue curent rgiment 08/04/2024 Panlobular emphysema (ICD-10 - J43.1) stable 11/17/2024 Type 2 diabetes mellitus without complication (ICD-10 - E11.9) good a1c, will continue current regiment 11/13/2024 Low HDL (under 40) (ICD-10 - E78.6) 05/09/2024 Low HDL (under 40) (ICD-10 - E78.6) stable, will cpntnue current regiment 08/04/2024 Essential hypertension (ICD-10 - I10) well contrlolled 11/17/2024 Prostate cancer (ICD-10 - C61) no sign of recurrance 11/13/2024 Anemia, unspecified anemia type (ICD-10 - [...] 3V 2022 Next Appt Details Provider Name:Kiko chatman, 05/14/2025 07:45:00 AM, [address] [place] [address], [address], [phone], Provider Name:Kiko chatman, 05/21/2025 09:00:00 AM, [address] [place] [address], [phone], Provider Name:Kiko chatman, 12/10/2025 07:15:00 AM, [address] [place] [address], [address], [phone], Provider Name:Kiko chatman, 12/17/2025 09:30:00 AM, [address] [place] [address], [address], [phone], Insurance Providers Payer Name Payer Address Payer Phone Subscriber Number Group Number Insured Name Patient Relationship to Insured Coverage Start Date Coverage End Date MEDICARE [employer] [address] [place] [address] [id number] Mikal Elizondo Self - patient is the insured 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 [address] [place] [address] [phone] [id number] Mikal Elizondo Self - patient is the insured Medical (General) History Medical History History ICD Code esophageal stricture hypercholesterolemia hypertension asthma - mild intermittent colonoscopy 02/2014 and [facility] probably not able to access those records but will be followed by them. possibly someone in [facility] did it colonoscopy and endoscopy 2022
--- OUTSIDE RECORDS SUMMARY | 2025-01-01 14:06 | XMS_ITS | Patient Health Record ---
Author Organization [facility] Address [address] [place] [address] Support Name Relationship Address Phone QUENTIN DENNY Guarantor Unknown [phone] Reason For Referral No Information Plan Of Treatment No Information
== END 2025-01-01 12:04 | disposition home or self-care (01) ==
LOC: HO.HGS 11:12
PROVIDERS: PCP Internal Medicine; Visit Provider Surgery
DX: K80.20 Calculus of gallbladder without cholecystitis without obstruction (principal)
CPT/HCPCS: 99203

== ENCOUNTER → 2025-01-01 11:11 | Outpatient (BNVA) | payer MEDICARE, OTHER, SELFPAY | PROVIDERS: PCP Internal Medicine; Visit Provider Surgery | DX: R10.11 Right upper quadrant pain (principal); K80.20 Calculus of gallbladder without cholecystitis without obstruction; Z09 Encounter for follow-up examination after completed treatment for conditions other than malignant neoplasm | CPT/HCPCS: 99202 ==

== ENCOUNTER 2025-01-07 11:56 | Day surgery (SDC) | payer MEDICARE, OTHER, SELFPAY ==
--- OUTSIDE RECORDS SUMMARY | 2024-08-04 09:30 | XMS_ITS ---
Author Organization Kiko Coats MD Address [address] [place], [place] [id number] Care Team Providers Care Garnett Mechanic Name Role Phone Kiko Coats Primary Care Provider [phone] Allergies No Known Allergies REASON FOR VISIT [...] Status Risk Notes Problem Ulcer of esophagus (85987322) Esophageal ulcer without bleeding (K22.10) Active confirmed Vital Signs Blood pressure systolic 140 mm Hg 08/05/19 25 Blood pressure diastolic 50 mm Hg 025 Height 70 in 08/04/2024 Weight 176 lbs 08/04/2024 BMI 25.25 kg/m2 08/04/2024 weight is down 2 pounds [facility] e 05-09-24 Encounters Encounter Location Date Provider Diagnosis Kiko Coats MD [address] [place], [place] [phone] 08/04/2024 Kiko Coats Esophageal ulcer without bleeding [...] Provider Name:Kiko chatman, 05/14/2025 07:45:00 AM, [address], [address], [place], [place], [phone], Provider Name:Kkio chatman, 05/21/2025 09:00:00 AM, [address], [address], [place], [place], [phone], Provider Name:Kiko De Leon ier, 12/10/2025 07:15:00 AM, [address] [place] [address], Suite [facility], [place], [place], [phone], Provider Name:Kiko De Leon ier, 12/17/2025 09:30:00 AM, [address] [place] [address], Suite [facility], [place], [place], [phone], Progress Notes * Mikal DENNYDOB: [birth year] (74 yo M)Acc No.[id number]:08/04/2024 Patient: Mikal VITALE Provider: La Coats MD :1950 A ge:74 Y S ex:Male Date:08/04/2024 Address:[address], [facility] Subjective: * Chief Complaints: * P H/TcM [...] MD Date: 0 08/04/2024 Generated for Maryam fnotaine/Pamela/Tishitting on: 1 03/04/2024 07:40 PM EST History and Physical Notes * [...]
--- OUTSIDE RECORDS SUMMARY | 2024-09-19 09:15 | XMS_ITS ---
Author Organization Kiko Coats MD Address [address] [place], [place] [phone] Care Team Providers Care Bed Machine Operator Name Role Phone Kiko Coats Primary Care Provider REASON FOR VISIT refill Medications Medication SIG (Take, Route, Frequency, Duration) Notes Start Date End Date Status Sucralfate 1 GM 1 tablet on an empty stomach Orally 4 times a day for 30 days 09/22/2024 Active RABEprazole Sodium 20 MG 1 tablet 1/2 to 1 hour before a meal Orally Once a day for 30 day(s) 09/22/2024 Active Encounters Encounter Location Date Provider Diagnosis Kiko Coats MD [address] [facility] [address] [place], [place] [phone] 09/19/2024 Kiko Coats Plan Of Treatment Medication Medication Name Sig Start Date Stop Date Notes Sucralfate 1 GM 1 tablet on an empty stomach Orally 4 times a day for 30 days 09/22/2024 RABEprazole Sodium 20 MG 1 tablet 1/2 to 1 hour before a meal Orally Once a day for 30 day(s) 09/22/2024 Next Appt Details Provider Name:Kiko De Leon ier, 05/14/2025 07:45:00 AM, [address] [place] [address], [place] [address], [place], [place], [phone], Provider Name:Kiko De Leon ier, 05/21/2025 09:00:00 AM, [address] [place] [address], [place] [address], [place], [place], [phone], Provider Name:Kiko De Leon ier, 12/10/2025 07:15:00 AM, [address] [place] [address], [place] [address], [place], [place], [phone], Provider Name:Kiko De Leon ier, 12/17/2025 09:30:00 AM, [address] [place] [address], [address], [phone], Progress Notes * Mikal DENNYDOB: [birth year] (74 yo M)Acc No.[id number]:09/19/2024 Patient: iMkal VITALE :1950 A ge:74 Y S ex:Male Address:[address] [place] [address] * Refills Start RABEprazole Sodium Tablet Delayed Release, 20 MG, Orally, 30, 1 tablet 1/2 to 1 hour before a meal, Once a day, 30 day(s) Start Sucralfate Tablet, 1 GM, Orally, 120 Tablet, 1 tablet on an empty stomach, 4 times a day, 30 days * true * Date: Generated for Maryam fontaine/Pamela/Travis on: 03/04/2024 07:39 PM EST
--- OUTSIDE RECORDS SUMMARY | 2024-10-07 08:38 | XMS_ITS ---
Author Organization Kiko Coats MD Address [address] [place] [phone] Care Team Providers Care Mallet Cutter Name Role Phone Kiko Coats Primary Care Provider [phone] REASON FOR VISIT refill Medications Medication SIG (Take, Route, Frequency, Duration) Notes Start Date End Date Status RABEprazole Sodium 20 MG 1 tablet 1/2 to 1 hour before a meal Orally Once a day for 90 days 09/22/2024 Active Encounters Encounter Location Date Provider Diagnosis Kiko Coats MD [address] [place] [phone] 10/07/2024 Kiko Coats Plan Of Treatment Medication Medication Name Sig Start Date Stop Date Notes RABEprazole Sodium 20 MG 1 tablet 1/2 to 1 hour before a meal Orally Once a day for 90 days 09/22/2024 Next Appt Details Provider Name:Kiko De Leon ier, 05/14/2025 07:45:00 AM, [address] [place] [address], [address], [place], [place], [phone], Provider Name:Kiko De Leon ier, 05/21/2025 09:00:00 AM, [address] [place] [address], Suite [facility], [place], [place], [phone], Provider Name:Kiko De Leon ier, 12/10/2025 07:15:00 AM, [address] [place] [address], Suite [facility], [place], [place], [phone], Provider Name:Kiko De Leon ier, 12/17/2025 09:30:00 AM, [address] [place] [address], [place] [address], [place], [place], [phone], Progress Notes * Mikal DENNYDOB: [birth year] (74 yo M)Acc No.[id number]:10/07/2024 Patient: Mikal VITALE :1950 A ge:74 Y S ex:Male Address:[address], [place] [address] * Refills Refill RABEprazole Sodium Tablet Delayed Release, 20 MG, Orally, 90, 1 tablet 1/2 to 1 hour before a meal, Once a day, 90 days, Refills=0 * true * Date: Generated for Maryam fontaine/Pamela/Tishitting on: 03/04/2024 07:42 PM EST
--- OUTSIDE RECORDS SUMMARY | 2024-11-07 05:45 | XMS_ITS ---
Author Organization Kiko Coats MD Address [address] [place] [phone] Care Team Providers Care Manager Billing Name Role Phone Kiko Coats Primary Care Provider REASON FOR VISIT RE: Annual Patient Experience Survey Encounters Encounter Location Date Provider Diagnosis Kiko Coats MD [address] [place] [address] [address] [place] [phone] 11/07/2024 Kiko Coats Plan Of Treatment Next Appt Details Provider Name:Kiko chatman, 05/14/2025 07:45:00 AM, [address] [place] [address], [address], [phone], Provider Name:Kiko chatman, 05/21/2025 09:00:00 AM, [address] [place] [address], [address], [phone], Provider Name:Kiko De Leon ier, 12/10/2025 07:15:00 AM, [address], [address], [place], [phone], Provider Name:Kiko De Leon ier, 12/17/2025 09:30:00 AM, [address], [address], [place], [place], [phone], Progress Notes * Mikal DENNYDOB: [birth year] (74 yo M)Acc No.[id number]:11/07/2024 Patient: Mikal VITALE :1950 A ge:74 Y S ex:Male Address:[address], [place] [address] * true * Date: Generated for Maryam fontaine/Pamela/Traciesmitting on: 03/04/2024 07:42 PM EST
--- OUTSIDE RECORDS SUMMARY | 2024-11-13 03:00 | XMS_ITS ---
Author Organization Kiko Coats MD Address [address] [place], [place] [phone] Care Team Providers Care Painting And Coating Worker Name Role Phone Jorge LTian Primary Care Provider Results Component Value Reference Range Notes Complete Blood Count Auto Di ff Reviewed date:11/13/2024 04:28:00 PM Interpretation: Performing Lab:[facility], [address] [place] [phone] Notes/Report: White Blood Count 9.2 4.8-10.8 X10*3/uL [...] NRBC Abs Auto 0.000 0.0-0.012 X10*3/uL Comprehensive [place]. Panel Fa st Reviewed date:11/13/2024 04:28:23 PM Interpretation: Performing Lab:[facility], [address] [place] [phone] Notes/Report: Sodium 142 135-145 mmol/L Potassium 3.9 [...] PROFILE Reviewed date:11/13/2024 04:19:48 PM Interpretation: Performing Lab:[facility], [address] [place] [phone] Notes/Report: Iron 63 45-160 mcg/dL Total Iron Binding Capacity 244 228-428 mcg/d L Percent Iron Saturation 26 15-50 % Unsaturated Iron Binding 181 Lipid Panel Reviewed date:11/13/2024 04:24:20 PM Interpretation: Performing Lab:[facility], [address] [place] [phone] Notes/Report: Triglycerides 283 <150 mg/dL Desirable Triglyceride: [...] (Free>4and<10) Reviewed date:11/13/2024 04:24:30 PM Interpretation: Performing Lab:[address] [phone] Notes/Report: PSA,Total (Free>4and<10) < 0.10 0.00-4.00 ng/mL [...] Random Reviewed date:11/13/2024 04:25:27 PM Interpretation: Performing Lab:[address] [phone] Notes/Report: Creatinine Urine 70.25 Microalbumin Urine 79.0 Microalbum/Creatinine Ratio Ur 112.4 <30 ug/mg cr Albumin/Creatinine Ratio Reference Ranges: Normal: < 30 ug/mg creatinine Microalbuminuria: 30 - 300 ug/mg creatinine Clinical Albuminuria: > 300 ug/mg creatinine Hemoglobin A1c Reviewed date:11/13/2024 04:19:36 PM Interpretation: Performing Lab:[address] [phone] Notes/Report: Hemoglobin A1c % 6.3 <6.0 % [...] average glucose, using the formula of the H9M-Tlitgdd Average Glucose study (ADAG), Diabetes Care, Vol.31,#8, Sep. 2007 UA ClnCatch+Micro w/rflx Cul t Reviewed date:11/13/2024 04:28:44 PM Interpretation: Performing Lab:[address] [phone] Notes/Report: [id number] 0800 Urine, Clean Catch Color Urine Yellow Appearance Urine Clear PH 7.0 5.0-9.0 Glucose Urine UA >=1000 Negative mg/dL Urine Blood Negative Negative Specific [place] - Urine 1.010 1.005-1.025 Urine Protein Trace [...] Location Date Provider Diagnosis Kiko Coats MD [address] [place] [phone] 11/13/2024 Kiko Coats Type 2 diabetes mellitus [...] Details Provider Name:Kiko chatman, 05/14/2025 07:45:00 AM, [address] [place] [address], [address], [phone], Provider Name:Kiko chatman, 05/21/2025 09:00:00 AM, [address] [place] [address], [address], [phone], Provider Name:Kiko chatman, 12/10/2025 07:15:00 AM, [address] [place] [address], [address], [phone], Provider Name:Kiko chatman, 12/17/2025 09:30:00 AM, [address] [place] [address], [phone], Progress Notes * Mikal DENNYDOB: [birth year] (74 yo M)Acc No.[id number]:11/13/2024 Progress Note Patient: Mikal VITALE Provider: La Coats MD :1950 A ge:74 Y S ex:Male Date:11/13/2024 Address:[address] [facility], [id number] Subjective: * Chief Complaints: * 1 . [...] - 11/13/2024 08:00 AM) L AB: Comprehensive [place]. Panel Fast (Collection Date & Time - [...] - 11/13/2024 08:00 AM) L AB: Comprehensive [place]. Panel Fast (Collection Date & Time - [...] - 11/13/2024 08:00 AM) L AB: Comprehensive [place]. Panel Fast (Collection Date & Time - [...] - 11/13/2024 08:00 AM) L AB: Comprehensive [place]. Panel Fast (Collection Date & Time - [...] * Procedure Codes: 3 6415 VENIPUNCT, ROUTINE*, 03875 FLU VACC PRSV FREE INC ANTIG, G0008 ADMN FLU VAC NO FEE SCHED SAME DAY * * The named appointment provid er may or may not be the originator of this progress note, and it is not deemed complete until electronically signed by the appointment provider. Sign off status: Pending * Provider: La Coats MD Date: 0 11/13/2024 Generated for Maryam fontaine/Pamela/Travis on: 03/04/2024 07:40 PM EST
--- OUTSIDE RECORDS SUMMARY | 2024-11-17 05:30 | XMS_ITS ---
Author Organization Kiko Coats MD Address [address] [place], [place] [id number] Care Team Providers Care Slaughterer Religious Ritual Name Role Phone Kiko Coats Primary Care [...] kg/m2 11/17/2024 weight is down 3 pounds [facility] 08-04-24 Encounters Encounter Location Date Provider Diagnosis Kiko Coats MD [address] [place] [address] [place] [phone] 11/17/2024 Kiko Coats Panlobular emphysema J43.1 ; [...] 30 days Ketoconazole 2 % [address] Security ally Once a day for 30 days [...] Up: 6 Months, Reason: Provider Name:Kiko chatman, 05/14/2025 07:45:00 AM, [address] [place] [address], [address], [place], [phone], Provider Name:Kiko chatman, 05/21/2025 09:00:00 AM, [address] [place] [address], [address], [place], [phone], Provider Name:Kiko chatman, 12/10/2025 07:15:00 AM, [address], [address], [place], [place], [phone], Provider Name:Kiko De Leon ier, 12/17/2025 09:30:00 AM, [address] [facility], [address], [place], [place], [phone], Progress Notes * Mikal DENNYDOB: [birth year] (74 yo M)Acc No.[id number]:11/17/2024 Patient: Mikal VITALE Provider: La Coats MD :1950 A ge:74 Y S ex:Male Date:11/17/2024 Address[address], [place], [place] Subjective: * Chief Complaints: * R eview [...] Average Glucose 134 - mg/dL L ab:Comprehensive [employer] Panel Fast (Order Date - 11/13/2024) (Collection [...] MD Date: 0 11/17/2024 Generated for Maryam fontaine/Pamela/Travis on: 1 03/04/2024 07:39 PM EST History and Physical Notes * [...] Total Score: 0 Interpretation and Intervention Depression Yared ruiz Findings: Negative Follow-Up for Depression: : review [...]
--- OUTSIDE RECORDS SUMMARY | 2024-12-12 06:45 | XMS_ITS ---
Author Organization Kiko Coats MD Address [address] [place], [place] [phone] Care Team Providers Care Cloth Boil Off Machine Operator Name Role Phone Kiko Coats [...] Status W/U Status Risk Notes Problem Gallstone ([id number]) Gall stones (K80.20) Active confirmed Vital Signs Blood pressure systolic 124 mm Hg 12/13/19 25 Blood pressure diastolic 60 mm Hg 025 Height 70 in 12/12/2024 Weight 168 lbs 12/12/2024 BMI 24.1 kg/m2 12/12/2024 weight is down 5 pounds [facility] e 11-17-24 Encounters Encounter Location Date Provider Diagnosis Kiko Coats MD [address] [place] [address] [place] [phone] 12/12/2024 Kiko Coats Gall stones K80.20 Assessments Encounter Date Diagnosis (ICD Code) Assessment Notes Treatment Notes Treatment Clinical Notes Section Notes 12/12/2024 Gall stones (ICD-10 - K80.20) order faxed to [facility] cs dept Plan Of Treatment Treatment Notes Assessment Notes Gall stones order faxed to [facility] s dept Pending Test Test Name Order Date US ABD 12/12/2024 Next Appt Details Follow Up: after us, Reason: Provider Name:Kiko chatman, 05/14/2025 07:45:00 AM, [address] [place] [address], [address], [phone], Provider Name:Kiko chatman, 05/21/2025 09:00:00 AM, [address] [place] [address], [address], [phone], Provider Name:Kiko de la or, 12/10/2025 07:15:00 AM, [address] [place] [address], [address], [phone], Provider Name:Kiko chatman, 12/17/2025 09:30:00 AM, [address] [place] [address], [address], [phone], Progress Notes * Mikal DENNYDOB: [birth year] (74 yo M)Acc No.[id number]:12/12/2024 Progress Notes Patient: Mikal VITALE Provider: La Coats MD :1950 A ge:74 Y S ex:Male Date:12/12/2024 Address:[address], [place] Subjective: * Chief Complaints: * S TOMACH [...] La Coats MD Date: Generated for Maryam fontaine/Pamela/eTedusmitting on: 03/04/2024 07:41 PM EST History and Physical Notes * Examination Category Sub-Category Detail Notes Category Not es General Examination GENERAL APPEARANCE: alert, w ell hydrated, in no distress ABDOMEN: no hepatosplenomegal y, no hepatosplenomegaly, abnormal with tender ruq.
--- OUTSIDE RECORDS SUMMARY | 2024-12-25 04:58 | XMS_ITS ---
Author Organization Kiko Coats MD Address [address] [place] [phone] Care Team Providers Care Destination Sign Repairer Name Role Phone Jorge L Kiko Primary Care Provider [phone] REASON FOR VISIT us abd result Encounters Encounter Location Date Provider Diagnosis Kiko Coats MD [address] [place] [address] [place] [phone] 12/25/2024 Kiko Coats Plan Of Treatment Next Appt Details Provider Name:Kiko chatman, 05/14/2025 07:45:00 AM, [address] [place] [address], [address], [phone], Provider Name:Kiko chatman, 05/21/2025 09:00:00 AM, [address] [place] [address], [address], [phone], Provider Name:Kiko de la or, 12/10/2025 07:15:00 AM, [address], [address], [place], [phone], Provider Name:Kiko De Leon ier, 12/17/2025 09:30:00 AM, [address] [facility], [address], [place], [phone], Progress Notes * Mikal DENNYDOB: [birth year] (74 yo M)Acc No.[id number]:12/25/2024 Patient: Mikal VITALE :1950 A ge:74 Y S ex:Male Address:[address], [place] [address] * true * Date: Generated for Maryam fontaine/Pamela/Traciesmitting on: 03/04/2024 07:39 PM EST
--- OUTSIDE RECORDS SUMMARY | 2024-12-26 09:35 | XMS_ITS ---
Author Organization Kiko Coats MD Address [address] [place] [phone] Care Team Providers Care Hotel Baggage Handler Name Role Phone Kiko Coats Primary Care Provider Encounters Encounter Location Date Provider Diagnosis Kiko Coats MD [address] [place] [address] [place] [phone] 12/26/2024 Kiko Coats Plan Of Treatment Next Appt Details Provider Name:Kiko De Leon ier, 05/14/2025 07:45:00 AM, [address] [place] [address], [place] [address], [place], [place], [phone], Provider Name:Kiko de la or, 05/21/2025 09:00:00 AM, [address] [place] [address], [place] [address], [place], [place], [phone], Provider Name:Kiko chatman, 12/10/2025 07:15:00 AM, [address], [address], [place], [place], [phone], Provider Name:Kiko De Leon ier, 12/17/2025 09:30:00 AM, [address], [address], [place], [place], [phone], Progress Notes * Mikal DENNYDOB: [birth year] (74 yo M)Acc No.[id number]:12/26/2024 Patient: Mikal VITALE :1950 A ge:74 Y S ex:Male Address:[address], [place] [address] * true * Date: Generated for Maryam fontaine/Pamela/Traciesmitting on: 03/04/2024 07:41 PM EST
--- OUTSIDE RECORDS SUMMARY | 2025-01-01 08:23 | XMS_ITS ---
Author Organization Kiko Coats MD Address [address] [place] [phone] Care Team Providers Care Typist Name Role Phone Kiko Coats Primary Care Provider REASON FOR VISIT ER Encounters Encounter Location Date Provider Diagnosis Kiko Coats MD [address] [place] [address] [place] [phone] 01/01/2025 Kiko Coats Plan Of Treatment Next Appt Details Provider Name:Kiko chatman, 05/14/2025 07:45:00 AM, [address] [place] [address], [address], [phone], Provider Name:Kiko chatman, 05/21/2025 09:00:00 AM, [address] [place] [address], [address], [phone], Provider Name:Kiko chatman, 12/10/2025 07:15:00 AM, [address], [address], [place], [place], [phone], Provider Name:Kiko De Leon jaironr, 12/17/2025 09:30:00 AM, [address], [address], [place], [place], [phone], Progress Notes * Mikal DENNYDOB: [birth year] (74 yo M)Acc No.[id number]:01/01/2025 Patient: Mikal VITALE :1950 A ge:74 Y S ex:Male Address:[address], [place] [address] * true * Date: Generated for Maryam fontaine/Pamela/Traciesmitting on: 03/04/2024 07:38 PM EST
--- OUTSIDE RECORDS SUMMARY | 2025-01-02 19:39 | XMS_ITS | Encounter Summary ---
Author Organization [facility] Address [address] [facility] [address] [place] [address] Phone Care Team Providers Care Deck Steward Name Role Phone Lindy Buckner MD Primary Care Provider Encounter Details Date Type Department Care Team (Late st Contact Info) Description 03/02/2023 Procedure Pass [facility] Endoscopy Admitting Dept Virtual Department [address] [place] [address] Social History Tobacco Use Types Packs/Day Years [...] on filedocumented in this encounter Care Teams Deck Steward Relationship Specialty Start Date End Date Lindy Buckner MD [address] [place] [address] PCP - General Internal Medicine 06/09/22 documented as of this encounter Additional Source Comments The information contained in this document represents components of the legal health record. It is not the complete legal health record.[facility]
--- OUTSIDE RECORDS SUMMARY | 2025-01-02 19:39 | XMS_ITS | Data Portability ---
Author Organization [place] [facility], [facility] Address [address] [place] [address] Care Team Providers Care Health Outcomes Liaison Name Role Phone EMMANUEL COPELAND Primary Care [...] 15 mg tablet 2024 025 [email or web address] [id number], [address] [place], [address], 5 10:49:41 Patient TargetsNo targets recorded. 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 Procedures Surgical History Date Name Laterality Status Provider Name and Address Organization Details Recorded Time 5 JZShoulder INJ completed Chad Hunter PA-C [address], [place], [address], [facility] 07/23/2024 07:40:15 5 JZShoulder INJ completed Chad Hunter PA-C [address], [place], [address], [facility] 04/23/2024 08:51:15 4 JZShoulder INJ completed Chad Hunter PA-C [address], [place], [address], [facility] 01/23/2024 08:52:21 4 JZShoulder INJ completed Chad Hunter PA-C [address] [facility][note 2], [place], [address], [facility] 10/24/2023 08:54:24 4 JZCMC Inj completed Chad Hunter PA-C [address] [facility][note 2], [place], [address], [facility] 10/24/2023 08:54:34 4 JZShoulder INJ completed Chad Hunter PA-C [address] [facility][note 2], [place], [address], [facility] 07/26/2023 13:08:59 [...] Updated DateTime 04/23/2024 177.8 cm 23.7 kg/m2 35147.74 g [facility] 04/23/2024 08:28:45 Date Recorded Body height Body mass index (BMI) Body weight Provider Name and Address Organization Details Last Updated DateTime 07/23/2024 177.8 cm 23.7 kg/m2 56028.74 g [facility] 07/23/2024 07:27:11 Date Recorded Body height Body mass index (BMI) Body weight Provider Name and Address Organization Details Last Updated DateTime 07/26/2023 177.8 cm 23.7 kg/m2 08438.74 g Merced [facility] 07/26/2023 13:05:11 Date Recorded Body height Body mass index (BMI) Body weight Provider Name and Address Organization Details Last Updated DateTime 10/24/2023 177.8 cm 23.7 kg/m2 07476.74 g Bayron Gaffney [facility] 10/24/2023 08:48:57 Date Recorded Body height Body mass index (BMI) Body weight Provider Name and Address Organization Details Last Updated DateTime 01/23/2024 177.8 cm 23.7 kg/m2 02480.74 g Bayron Gaffney [facility] 01/23/2024 08:49:29 Social History None recorded. Functional Status None recorded. Mental Status None recorded. Family History Nothing Reported. Medical History No medical history recorded. Past Encounters Encounter ID Performer Location Encounter Start Date Encounter Closed Date Diagnosis/Indication Diagnosis SNOMED-CT Code Diagnosis ICD10 Code Diagnosis IMO Codes Diagnosis Note [id number] GUERDA Dawson [address] [place] [address] 07/26/2023 12:43:37 08/20/2023 13:07:39 Impingement syndrome of left shoulder region 8493384133 78721 M75.42 [id number] GUERDA Dawson [address] [place] [address] 10/24/2023 08:42:15 11/19/2023 13:35:25 Impingement syndrome of left shoulder region 5915164107 82717 M75.42 Osteoarthr osis of the carpometacarpal joint of the thumb 74412671 M18.9 [id number] GUERDA Dawson [address] [place] [address] 01/23/2024 08:45:15 02/19/2024 07:48:29 Impingement syndrome of left shoulder region 0771891726 90600 M75.42 [id number] GUERDA Dawson [facility] [address] [place] [address] 04/23/2024 08:18:47 05/09/2024 12:39:46 Impingement syndrome of left shoulder region 8626258779 07687 M75.42 [id number] GUERDA Dawson - [facility] [address] [place] [address] 07/23/2024 07:22:30 08/04/2024 13:32:23 Impingement syndrome of left shoulder region 8472306521 72143 M75.42 Health Concerns Section Related Observation LastModified by Organization Detai ls LastModified Time None Recorded Concern Status LastModified by Organization Details LastModified Time None Recorded Advance Directives Directive None Recorded Payers Insurance Date Sequence Insurance Name Policy Number Policy Eckert Covered Member ID Eckert Member ID Guarantor Name 07/20/2024 1 [place]ICARE [place]: [employer] Mikal Elizondo [id number] Mikal Elizondo 08/04/2024 2 [employer] (POS) [id number] Mikal Elizondo [id number] Mikal Elizondo 09/07/2023 2 UNSPECIFIED REMIT PAYOR Mikal Elizondo
--- OUTSIDE RECORDS SUMMARY | 2025-01-02 19:39 | XMS_ITS | Data Portability ---
Author Organization [place] [facility] Address [address] [place] [id number] Care Team Providers Care Elementary Education Tutor Name Role Phone DRUERASMO SHEPPARDN Primary Care Provider [facility] OTHER [phone] Assessment Encounter Date Assessment Date Assessment LastModified [...] ionized calcium, serum or plasma [facility], [address] [place], [address], 05:01:37 urinalysis , dipstick 2021 022 [email or web address] [facility], [address] [place], [address], 15:29:23 Referral None recorded. Procedures None recorded. Surgeries None recorded. Imaging None recorded. Medication Orders None recorded. Patient TargetsNo targets recorded. Patient Instructions Encounter Date Encounter Id Patient Instructions Last Modified By Organization Details Last Modified Time 12/14/2021 [id number] Mailbox [facility] came to your home to evaluate [...] , dipst ick Appearance clear Not Available [facility] - [facility]me [address], [place], [address], 12/14/2021 15:12:58 12/15/1912/14/2021 urina lysis , dipst ick Color yellow Not Available [facility] [address] [place], [address], 12/14/2021 15:12:58 12/15/19 22 12/14/2021 urina lysis , dipst ick Glucose (ref: neg Neg Not Available [facility] [place] [address] [place], [address], 12/14/2021 15:12:58 12/15/1912/14/2021 urina lysis , dipst ick Bilirubin (ref: neg) Neg Not Available [facility] [place] [address] [place], [address], 12/14/2021 15:12:58 12/15/1912/14/2021 urina lysis , dipst ick Ketones (ref: neg) Neg Not Available [facility] [place] [address] [place], [address], 12/14/2021 15:12:58 12/15/1912/14/2021 urina lysis , dipst ick Specific Jackson (ref: 1.003 - 1.035) 1.020 Not Available [facility] [place] [address] [place], [address], 12/14/2021 15:12:58 12/15/19 22 12/14/2021 urina lysis , dipst ick Blood (ref: neg) Neg Not Available [facility] [place] [address], [place], [address], 12/14/2021 15:12:58 12/15/1912/14/2021 urina lysis , dipst ick pH (ref: 5.0-7.0) 5.0 Not Available [facility] [place] [address] [place], [address], 12/14/2021 15:12:58 12/15/19 22 12/14/2021 urina lysis , dipst ick Protein (ref: neg) Neg Not Available [facility] [place] [address] [place], [address], 12/14/2021 15:12:58 12/15/1912/14/2021 urina lysis , dipst ick Urobilinogen (ref: 0.2-1.0) 0.2 Not Available [facility] [address] [place], [address], 12/14/2021 15:12:58 12/15/1912/14/2021 urina lysis , dipst ick Nitrites (ref: neg) negati ve Not Available [facility] [address] [place], [address], 12/14/2021 15:12:58 12/15/1912/14/2021 urina lysis , dipst ick Leukocytes (ref: neg) Not Available [facility] [address] [place], [address], 12/14/2021 15:12:58 12/15/1912/14/2021 urina lysis , dipst ick [facility], [address] [place] [address], [id number] Not Available [facility] [address] [place], [address], 12/14/2021 15:12:58 12/15/19 22 12/14/2021 BMP + IONIZ ED CALCI UM, SERUM OR PLASM A glu 179 mg/dL 70-105 Not Available [facility] [address] [place], [address], 12/14/2021 15:11:21 12/15/19 22 12/14/2021 BMP + IONIZ ED CALCI UM, SERUM OR PLASM A BUN 24 mg/dL 8-26 Not Available [facility] [address] [place], [address], 12/14/2021 15:11:21 12/15/19 22 12/14/2021 BMP + IONIZ ED CALCI UM, SERUM OR PLASM A crea 1.9 mg/dL 0.6-1. 3 Not Available [address], [address], 12/14/2021 15:11:21 12/15/19 22 12/14/2021 BMP + IONIZ ED CALCI UM, SERUM OR PLASM A Na 136 mmol/ L 138-14 6 Not Available [address], [address], 12/14/2021 15:11:21 12/15/19 22 12/14/2021 BMP + IONIZ ED CALCI UM, SERUM OR PLASM A K 4.0 mmol/ L 3.5-4. 9 Not Available [address], [address], 12/14/2021 15:11:21 12/15/19 22 12/14/2021 BMP + IONIZ ED CALCI UM, SERUM OR PLASM A cL 99 mmol/ L 98-109 Not Available [address], [address], 12/14/2021 15:11:21 12/15/19 22 12/14/2021 BMP + IONIZ ED CALCI UM, SERUM OR PLASM A TCO2 24 mmol/ L 24-29 Not Available [address], [address], 12/14/2021 15:11:21 12/15/19 22 12/14/2021 BMP + IONIZ ED CALCI UM, SERUM OR PLASM A angap 18 mmol/ L 10-20 Not Available [address], [address], 12/14/2021 15:11:21 12/15/19 22 12/14/2021 BMP + IONIZ ED CALCI UM, SERUM OR PLASM A ica 1.15 mmol/ L 1.12-1 .32 Not Available [facility] [address] [place], [address], 12/14/2021 15:11:21 12/15/19 22 12/14/2021 BMP + IONIZ ED CALCI UM, SERUM OR PLASM A HCT 28 %pcv 38-51 Not Available [facility] [address] [place], [address], 12/14/2021 15:11:21 12/15/19 22 12/14/2021 BMP + IONIZ ED CALCI UM, SERUM OR PLASM A Hb 9.5 g/dL 12-17 Not Available [facility] [address] [place], [address], 12/14/2021 15:11:21 Result Notes None recorded. Procedures Surgical History Date Name Laterality Status Provider Name and Address Organization Details Recorded Time 12/15/19 Venipuncture - completed LIO VANCE NP [address] [place], [address], [place] [facility] 12/14/2021 19:45:24 12/15/19 ECG Interpretation - completed LIO VANCE NP [address] [place], [address], [place] [facility] 12/14/2021 19:46:52 radical prostatectomy completed LIO VANCE NP [address] [place], [address], [place] [facility] 12/14/2021 15:23:36 arterial bypass graft completed LIO VANCE NP [address], [place], [address], [place] [facility] 12/14/2021 15:23:50 Imaging Results [...] ICD10 Code Diagnosis IMO Codes Diagnosis Note [id number] LIO VANCE NP [facility] [place] [address] [place] [address] 12/14/2021 14:40:12 12/15/2021 12:28:27 Near syncope [id number] Health Concerns Section Related Observation LastModified by Organization Detai ls LastModified Time None Recorded Concern Status LastModified by Organization Details LastModified Time None Recorded Advance Directives Directive None Recorded Payers Insurance Date Sequence Insurance Name Policy Number Policy Eckert Covered Member ID Eckert Member ID Guarantor Name 12/17/2021 1 [place] [employer] [employer] Mikal Elizondo [id number] Mikal Elizondo 12/14/2021 2 [employer] [id number] Mikal Elizondo [id number] Mikal Elizondo 12/14/2021 1 *SELF PAY* Mikal Elizondo [id number] Mikal Elizondo 12/14/2021 2 [employer] [id number] Mikal Elizondo [id number] Mikal Elizondo 12/14/2021 1 [place] [employer] [employer] Mikal Elizondo [id number] Mikal Elizondo Notes Date Note Type Note Provider Name and Address Organization Details Recorded Time 12/14/2021 text/html 71 year-old male with history of PAD, CAD, HTN, HLD, COPD who calls to home to evaluate him for dizziness. He is feeling better today.Pt reports he is 2 days post DC from [facility]. Pt underwent elective EVAR with bilateral [...] discomfort. LIO VANCE NP [address], [place], [address], [place] [facility] 12/14/2021 20:00:48
--- OUTSIDE RECORDS SUMMARY | 2025-01-02 19:39 | XMS_ITS | Encounter Summary ---
Author Organization [facility] Address [address] [place] [address] Phone Care Team Providers Care Employment Consultant Name Role Phone Lindy Buckner MD Primary Care Provider Encounter Details Date Type Department Care Team (Late st Contact Info) Description 08/10/2022 Procedure Pass [facility] Endoscopy Admitting Dept Virtual Department [address] [place] [address] Social History Tobacco Use Types Packs/Day Years [...] on filedocumented in this encounter Care Teams Employment Consultant Relationship Specialty Start Date End Date Lindy Buckner MD [address] [place] [address] PCP - General Internal Medicine 06/09/22 documented as of this encounter Additional Source Comments The information contained in this document represents components of the legal health record. It is not the complete legal health record.[facility]
--- OUTSIDE RECORDS SUMMARY | 2025-01-02 19:39 | XMS_ITS | Encounter Summary ---
Author Organization [facility] Address [address] [place] [phone] Phone Care Team Providers Care Uncrater Name Role Phone Lindy Buckner MD Primary Care Provider Encounter Details Date Type Department Care Team (Late st Contact Info) Description 06/09/2022 Procedure Pass [facility] Endoscopy Admitting Dept Virtual Department [address] [place] [phone] Social History Tobacco Use Types Packs/Day Years [...] on filedocumented in this encounter Care Teams Uncrater Relationship Specialty Start Date End Date Lindy Buckner MD [address] [place] [address] PCP - General Internal Medicine 06/09/22 documented as of this encounter Additional Source Comments The information contained in this document represents components of the legal health record. It is not the complete legal health record.[facility]
--- OUTSIDE RECORDS SUMMARY | 2025-01-02 19:40 | XMS_ITS | Encounter Summary ---
Author Organization [facility] Address [address] [place] [phone] Phone Care Team Providers Care Cuff Presser Name Role Phone Lindy Buckner MD Primary Care Provider [phone] Encounter Details Date Type Department Care Team (Late st Contact Info) Description 04/13/2023 Procedure Pass [facility] Endoscopy Admitting Dept Virtual Department [address] [place] [address] Social History Tobacco Use Types Packs/Day Years [...] on filedocumented in this encounter Care Teams Cuff Presser Relationship Specialty Start Date End Date Lindy Buckner MD [address] [place] [address] PCP - General Internal Medicine 06/09/22 documented as of this encounter Additional Source Comments The information contained in this document represents components of the legal health record. It is not the complete legal health record.[facility]
--- OUTSIDE RECORDS SUMMARY | 2025-01-02 19:40 | XMS_ITS | Clinical Summary ---
Author Organization [facility] Address [address] [place] [phone] Phone Care Team Providers Care Caustic Purification Operator Name Role Phone Lindy Bukcner MD Primary Care Provider Allergies Active Allergy [...] this topic Medical Devices Implanted Type Area Filler Machine Operator Device Identifier Shelf Expiration Date Model [...] Relevant to Health Maintenance Insurance Care Teams Caustic Purification Operator Relationship Specialty Start Date End Date Lindy Buckner MD [address] [place] [address] PCP - General Internal Medicine 06/09/22 Additional Source Comments The information contained in this document represents components of the legal health record. It is not the complete legal health record.[facility]
--- OUTSIDE RECORDS SUMMARY | 2025-01-02 19:42 | XMS_ITS | Patient Health Record ---
Author Organization Kiko Coats MD Address [address] [place], [place] [id number] Care Team Providers Care Aerial Installer Name Role Phone JakeKiko calabrese Primary Care Provider [phone] Allergies No Known Allergies Results Component Value Reference Range Notes Hemoglobin A1c Reviewed date:01/28/2024 10:57:43 AM Interpretation: Performing Lab: Notes/Report: Hemoglobin A1c 6.1 Complete Blood Count Auto Di ff Reviewed date:11/13/2024 04:28:00 PM Interpretation: Performing Lab:[facility], [address] [place] [phone] Notes/Report: White Blood Count 9.2 4.8-10.8 X10*3/uL [...] NRBC Abs Auto 0.000 0.0-0.012 X10*3/uL Comprehensive [place]. Panel Fa st Reviewed date:11/13/2024 04:28:23 PM Interpretation: Performing Lab:[facility], [address] [place] [phone] Notes/Report: Sodium 142 135-145 mmol/L Potassium 3.9 [...] PROFILE Reviewed date:11/13/2024 04:19:48 PM Interpretation: Performing Lab:[address] [address] Notes/Report: Iron 63 45-160 mcg/dL Total Iron Binding Capacity 244 228-428 mcg/dL Percent Iron Saturation 26 15-50 % Unsaturated Iron Binding 181 Lipid Panel Reviewed date:11/13/2024 04:24:20 PM Interpretation: Performing Lab:[address] [address] Notes/Report: Triglycerides 283 <150 mg/dL Desirable Triglyceride: [...] (Free>4and<10) Reviewed date:11/13/2024 04:24:30 PM Interpretation: Performing Lab:[address] [address] Notes/Report: PSA,Total (Free>4and<10) < 0.10 0.00-4.00 ng/mL [...] Random Reviewed date:11/13/2024 04:25:27 PM Interpretation: Performing Lab:[address] [address] Notes/Report: Creatinine Urine 70.25 Microalbumin Urine 79.0 Microalbum/Creatinine Ratio Ur 112.4 <30 ug/mg cr Albumin/Creatinine Ratio Reference Ranges: Normal: < 30 ug/mg creatinine Microalbuminuria: 30 - 300 ug/mg creatinine Clinical Albuminuria: > 300 ug/mg creatinine Hemoglobin A1c Reviewed date:11/13/2024 04:19:36 PM Interpretation: Performing Lab:[address] [address] Notes/Report: Hemoglobin A1c % 6.3 <6.0 % [...] average glucose, using the formula of the E8P-Jwymxlw Average Glucose study (ADAG), Diabetes Care, Vol.31,#8, Sep. 2007 UA ClnCatch+Micro w/rflx Cul t Reviewed date:11/13/2024 04:28:44 PM Interpretation: Performing Lab:[address] [address] Notes/Report: [id number] Urine, Clean Catch Color Urine Yellow Appearance Urine Clear PH 7.0 5.0-9.0 Glucose Urine UA >=1000 Negative mg/dL Urine Blood Negative Negative Specific [place] - Urine 1.010 1.005-1.025 Urine Protein Trace [...] date:03/07/2024 12:57:23 PM Interpretation: Performing Lab: Notes/Report: [facility] Primary [address] [place] [address] XRay Report Signed Patient: Mikal Elizondo MR#: [id number] : 1950 Acct:[id number] Age/Sex: 73 / M ADM Date: 03/06/24 Loc: [facility] Attending Dr: Kiko Coats MD Ordering Physician: Kiko Coats MD Date of Service: 03/06/24 Procedure(s): XR chest 2V Accession Number(s): [id number] cc: Kiko Coats MD EXAMINATION: XR CHEST [...] by: Que Lopez MD 03/07/2024 12:12 PM [facility] Dictated By: Que Wilkinson MD Signed By: <Electronically signed by Que eFlix MD in OV> 03/07/24 1212 DD/ 1406 TD/TT: 03/06/24 1410 Hspt Tutor: [facility] [place] [address] XRay Report Signed Patient: Yadira Elizondo MR#: [id number] : 1950 Acct:[id number] Age/Sex: 73 / M ADM Date: 03/06/24 Loc: [facility] Attending Dr: Kiko Coats MD Ordering Physician: Kiko Coats MD Date of Service: 03/06/24 Procedure(s): XR chest 2V Accession Number(s): [id number] cc: Kiko Coats MD EXAMINATION: XR CHEST [...] by: Que Lopez MD 03/07/2024 12:12 PM [facility] Dictated By: Que Grullon MD Signed By: <Electronically signed by Que Felix MD in OV> 03/07/24 1212 DD/ 1406 TD/TT: 03/06/24 1410 Hspt Tutor: Liver Panel Reviewed date:05/05/2024 12:51:46 PM Interpretation: Performing Lab:[facility], [address] [place] [phone] Notes/Report: Bilirubin Total 0.4 0.0-1.0 mg/dL Bilirubin Direct 0.2 0.0-0.5 mg/dL Aspartate Amino Transferase 21 5-37 U/L Alanine Aminotransferase 24 0-40 U/L Total Protein 7.0 6.5-8.0 g/dL Albumin Level 4.0 3.5-5.0 g/dL Alkaline Phosphatase 51 39-117 U/L Glucose Fasting Reviewed date:05/05/2024 12:52:03 PM Interpretation: Performing Lab:[address] [address] Notes/Report: Glucose Fasting 97 60-99 mg/dL Lipid Panel with Reflex Reviewed date:05/05/2024 04:32:27 PM Interpretation: Performing Lab:[address] [address] Notes/Report: Triglycerides 251 <150 mg/dL Desirable Triglyceride: [...] A1c Reviewed date:05/05/2024 11:59:28 AM Interpretation: Performing Lab:[address] [address] Notes/Report: Hemoglobin A1c % 6.1 <6.0 % [...] average glucose, using the formula of the P1G-Fwpnpym Average Glucose study (ADAG), Diabetes Care, Vol.31,#8, Sep. 2007 XR clavicle RT Reviewed date:10/17/2024 06:49:30 PM Interpretation: Performing Lab: Notes/Report: [facility] Adult [facility] [address] [place] [address] [place] [address] XRay Report Signed Patient: Mikal Elizondo MR#: [id number] : 1950 Acct:[id number] Age/Sex: 74 / M ADM Date: 10/15/24 Loc: [facility] Attending Dr: Isela Reyes PA-C Ordering Physician: ISELA REYES Date of Service: 10/15/24 Procedure(s): XR clavicle RT Accession Number(s): [id number] cc: Kiko Coats MD; ISELA REYES EXAMINATION: [...] 10/15/24 0941 DD/ 0818 TD/TT: 10/15/24 0920 Hspt Tutor: [facility] Primary [address] [place] [address] XRay Report Signed Patient: Yadira Elizondo MR#: [id number] : 1950 Acct:[id number] Age/Sex: 74 / M ADM Date: 10/15/24 Loc: [facility] Attending Dr: Anna Reyes PA-C Ordering Physician: ISELA REYES Date of Service: 10/15/24 Procedure(s): XR cla vicle RT Accession Number(s): [id number] cc: Kiko Coats MD; ISELA REYES EXAMINATION: [...] in OV> 10/15/24940 DD/ 7 TD/TT: 10/15/24919 Hspt Tutor: Reason For Referral Reason please zenia fernandes Diagnosis 1 Esophageal ulcer wit hout bleeding (K22.10) Referral Organization Kiko Coats MD Referring Provider First Name Kiko Referring Provider Last Name Jorge L Referring Provider Speciality Internal M edicine Referred Provider [facility] Referred Provider Specialty Gastroentero [...] 11/19/2012 Administered flu vac giv en [place] [facility] Fluarix Quadrivalent IM Intramuscular 11/14/2013 Administe red Fluarix Quadrivalent IM Intramuscular 12/14/2014 Administe red Prevnar 13 Unknown 07/22/2014 Administered [facility] [place] PPSV23 (Pnemovax) IM Intramuscular 10/11/2015 Administered Fluarix Quadrivalent IM Intramuscular 10/26/2015 [facility] smiley Shingles Unknown 11/04/2012 Administered done at the [facility] Fluarix Quadrivalent IM Intramuscular 01/19/2017 Adm[facility] red Fluarix Quadrivalent IM Intramuscular 12/03/2017 [facility] smiley TDaP Unknown 07/30/2006 Administered At the [facility] Fluarix Quadrivalent IM Intramuscular 11/05/2018 [facility] smiley pt was given the vaccine at the [facility]. Influenza High Dose Unknown 11/04/2019 [facility]ered [facility] [place] Shingrix Unknown 11/04/2019 [facility] [place] Shingrix Unknown 02/25/2020 [facility] SARS-COV-2 Moderna [...] Status Risk Notes Problem Carotid artery disease (261564253) Carotid artery disease (I77.9) Active confirmed Problem Dysphagia (55243486) Dysphagia (R13.10) Active confirmed Problem 179597359 Hypomagnesemia (E83.42) Active confirmed Problem 66797868 Hypercalcemia (E83.52) Active confirmed Problem 52590083 Other chronic pa in (G89.29) Active confirmed Problem 8470336 Panlobular emphysema (J43.1) Active confirmed Problem 111707801114862 Erectile dysfunction due to arterial insufficiency (N52.01) Active confirmed Problem 947625622 Lumbar disc disease (M51.9) Active confirmed Problem 43331477 Essential hypertension (I10) Active confirmed Problem 117687336 Prostate cancer (C61) Active confirmed Problem Psoriasis (5179023) Psoriasis (L40.9) Active co nfirmed Problem 66650490 Type 2 diabetes mellitus without complication (E11.9) Active confirmed Problem 51895859 Abdominal aortic aneurysm without rupture (I71.4) Active confirmed Problem 188475210 Low HDL (under 4 0) (E78.6) Active confirmed Problem 521371218 Anemia, unspecified anemia type (D64.9) Active confirmed Problem 088225605 High triglycerid es (E78.1) Active confirmed Problem 882265062 Cervical disc disease (M50.90) Active confirmed Problem 99197937 Intrinsic eczema (L20.84) Active confirmed Problem 160588765 Raynauds disease without gangrene (I73.00) Active confirmed Problem Gallstone (679240872) Gall stones (K80.20) Active confirmed Problem 804682798 COPD exacerbatio n (J44.1) Active confirmed Problem Atherosclerosis (99631362) Atherosclerosis (I70.90) Active confirmed Problem Leukocytosis (959873937) Elevated WBC count (D72.829) Active confirmed Problem 269094247 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) Active confirmed Problem 745833564 Nodule of tongue (R22.0) Active confirmed Problem 99168424 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) Active confirmed Problem 437515089 COPD with exacerbation (J44.1) Active confirmed Problem 3782243243962811 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) Active confirmed Problem 609296226 Low blood magnesium (R79.0) Active confirmed Problem 314485666 Age-related incipient cataract of both eyes (H25.093) Active confirmed Problem 636859883 Arthritis, 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) Active confirmed Problem Ulcer of esophagus (47956791) Esophageal ulcer without bleeding (K22.10) Active confirmed [...] Kiko Coats MD [address] [place] [id number] 11/13/2024 Kiko Coats Type 2 diabetes mellitus without complication E11.9 ; Encounter for administration of vaccine Z23 ; Essential hypertension I10 ; Low HDL (under 40) E78.6 ; Anemia, unspecified anemia type D64.9 and High triglycerides E78.1 Kiko Coats MD [address] [place] [address] [id number] 01/28/2024 Kiko Coats Type 2 diabetes mellitus without complication E11.9 ; Skin lesion L98.9 and Panlobular emphysema J43.1 Kiko Coats MD [address] [place] [address] [id number] 02/25/2024 Kiko Coats COPD with exacerbati on J44.1 Kiko Coats MD [address] [place] [address] [id number] 03/06/2024 Kiko Coats Lumbar disc disease M51.9 and Bronchitis J40 Kiko Coats MD [address] [place] [address] [id number] 05/09/2024 Kiko Coats Panlobular emphysema J43.1 ; Type 2 diabetes mellitus without complication E11.9 and Low HDL (under 40) E78.6 Kiko Coats MD [address] [place] [address] [id number] 08/04/2024 Kiko Coats Esophageal ulcer without bleeding K22.10 ; Panlobular emphysema J43.1 and Essential hypertension I10 Kiko Coats MD [address] [place] [address] [id number] 11/17/2024 Kiko Coats Panlobular emphysema J43.1 ; Tinea B35.9 ; Type 2 diabetes mellitus without complication E11.9 ; Prostate cancer C61 ; Essential hypertension I10 ; High triglycerides E78.1 ; Anemia, unspecified anemia type D64.9 and Depression screening Z13.31 Kiko Coats MD [address] [place] [address] [id number] 12/12/2024 Kiko Coats Gall stones K80.20 Kiko Coats MD [address] [place] [address] [id number] 03/14/2024 Kiko Coats Lumbar disc disease M51.9 Kiko Coats MD [address] [place] [address] [id number] 07/24/2024 Kiko Coats MD [address] [place] [address] [id number] 07/31/2024 Kiko Coats MD [address] [place] [address] [id number] 09/19/2024 Kiko Coats MD [address] [place] [address] [id number] 10/07/2024 Kiko Coats MD [address] [place] [address] [id number] 12/25/2024 Kiko Coats MD [address] [place] [address] [id number] 12/26/2024 Kiko Coats MD [address] [place] [address] [id number] 01/01/2025 Kiko Coats MD [address] [place] [address] [id number] 11/07/2024 Kiko Coats Assessments Encounter Date Diagnosis [...] directions for use. x-ray order faxed to [facility] 05/09/2024 Panlobular emphysema (ICD-10 - J43.1) doing well using his updrafts once a day, will continue current regiment 08/04/2024 Esophageal ulcer without bleeding (ICD-10 - K22.10) need results of biopsy/ will send for results 11/17/2024 Panlobular emphysema (ICD-10 - J43.1) stable, will continue current regiment 11/17/2024 Tinea (ICD-10 - B35.9) 12/12/2024 Gall stones (ICD-10 - K80.20) order faxed to [facility] 03/14/2024 Lumbar disc disease (ICD-10 [...] Details Provider Name:Kiko chatman, 05/14/2025 07:45:00 AM, [address] [place] [address], [address], [phone], Provider Name:Kiko chatman, 05/21/2025 09:00:00 AM, [address] [place] [address], [phone], Provider Name:Kiko chatman, 12/10/2025 07:15:00 AM, [address] [place] [address], [address], [phone], Provider Name:Kiko chatman, 12/17/2025 09:30:00 AM, [address] [place] [address], [address], [phone], Insurance Providers Payer Name Payer Address Payer Phone Subscriber Number Group Number Insured Name Patient Relationship to Insured Coverage Start Date Coverage End Date [employer] [address] [place] [address] [id number] Mikal Elizondo Self - patient is the insured 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 [address] [place] [phone] [id number] Mikal Elizondo Self - patient is the insured Medical (General) History Medical History History ICD Code esophageal stricture hypercholesterolemia hypertension asthma - mild intermittent colonoscopy 02/2014 and [facility] probably not able to access those records but will be followed by them. possibly someone in [facility] did it colonoscopy and endoscopy 2022
[2025-01-07] VITALS (12 sets, daily range): BP systolic 119–160; BP diastolic 59–76; PULSE 82–91; RESP 10–21; TEMP 36.6–37.3; O2SAT 94–100; BMI 22.8
--- NOTE | 2025-01-07 12:43 | MHC.SHP ---
Pre-Procedural Eval Section A - 24 Hr Update-Section A only Date of Service: 01/07/25 The patient is an INPATIENT: No Changes since office visit: Yes Cold of Flu in the past 2 weeks, Yes New Medical Problems, Yes Changes in Medication and Yes Patient answered all questions The patient has been examined within 24 hours of the surgical procedure. The History & Physical has been completed within 30 days and I have reviewed it.: Yes Section B - Complete if H&P > 30 days Chief Complaint: Calculus of gallbladder without cholecystitis Allergies: Allergies Allergy/AdvReac Type Severity Reaction Status Date / Time No Known Allergies Allergy Verified 01/01/25 11:37 Plan I have reviewed the history and physical and performed a pertinent physical examination on my patient. No changes have occurred unless specified. Time Spent With Patient Time: Total time managing care of this patient today ____ minutes.
[2025-01-07 12:56] LABS: Glucose, Whole Blood 149 mg/dL (60-115)
[2025-01-07] MEDS: Lactated Ringers 1,000 ML 100 ML IVCONT (12:57)
--- NOTE | 2025-01-07 12:57 | HO.ANESPROP2 ---
Documented by User: Vickie Templeton NP 01/07/25 08:29 HPI - Anesthesia Eval Consult details Narrative: 74yo M for Cholecystectomy Laparoscopic,possible open Cardiac optimized: Follows [facility] Cardiology for presumed CAD in setting of PAD, HTN, HLD Vascular optimized: Follows [facility] vascular for AAA s/p repair years ago , Carotid stenosis s/p L CEA years ago . Stable with yearly imaging, no intervention at this time. [facility] Active Problems Active Problems: All Active Problems Gallstones (Acute) COPD (chronic obstructive pulmonary disease) (Acute) Pulmonary emphysema (Acute) Past Medical History Medical History (Updated 01/05/25 @ 09:35 by Vickie Templeton NP) HLD (hyperlipidemia) HTN (hypertension) Diabetes Carotid stenosis AAA (abdominal aortic aneurysm) Gallstones COPD (chronic obstructive pulmonary disease) Pulmonary emphysema Surgical History Surgical History (Updated 01/07/25 @ 12:26 by Sommer Rdz RN) H/O arterial bypass of lower limb History of left-sided carotid endarterectomy History of cholecystectomy History of bilateral knee replacement H/O bilateral cataract extraction History of AAA (abdominal aortic aneurysm) repair Social History Social History Patient Tobacco Use Status: Former Tobacco user Tobacco use type: Cigarette Use of substances other than those prescribed or required for medical reasons: No Are you DNR?: No Advance Directives: No Advance Directives Information Provided: Yes Meds Allergies Allergy/AdvReac Type Severity Reaction Status Date / Time No Known Allergies Allergy Verified 01/01/25 11:37 Home Medications ?Medication ?Instructions ?Recorded ?Confirmed ?Last Taken ?Type aspirin 81 mg tablet,delayed 81 mg PO DAILY 06/17/20 06/17/20 12/30/24 History release atorvastatin 40 mg tablet 40 mg PO BEDTIME 06/17/20 06/17/20 Unknown History meloxicam 15 mg tablet 15 mg PO DAILY 06/17/20 06/17/20 12/23/24 History multivitamin (Daily Multi-Vitamin 1 tab PO DAILY 06/17/20 06/17/20 Unknown History tablet) omeprazole 20 mg capsule,delayed 20 mg PO BID 06/17/20 06/17/20 01/07/25 History release C 250 mg-E 90 mg-zinc 40 mg-copper cap PO 10/15/24 Unknown History 1 mg-lutein 5 [id number] capsule (PreserVision AREDS 2 CO Q-10) albuterol sulfate 90 mcg/actuation 2 puff inhalation Q6H PRN SOB 10/15/24 01/07/25 History aerosol inhaler (Ventolin HFA) amlodipine 10 mg tablet 5 mg PO DAILY 10/15/24 01/07/25 History carvedilol 25 mg tablet 25 mg PO BID 10/15/24 01/07/25 History empagliflozin 10 mg tablet 10 mg PO DAILY 10/15/24 12/30/24 History (Jardiance) famotidine 40 mg tablet 40 mg PO DAILY 10/15/24 Unknown History ferrous sulfate 325 mg (65 mg 325 mg PO DAILY 10/15/24 Unknown History iron) tablet (FeroSul) rabeprazole 20 mg tablet,delayed 20 mg PO DAILY 10/15/24 Unknown History release sucralfate 1 gram tablet 1 g PO QID 10/15/24 Unknown History Exam Pertinent Lab Results Pertinent Lab Results: Lab ResultsCardiology Labs Blood Count & Diff? COAG? General Chemistry? Cardiac? WBC: 9.1 k/mm3 (07/29/24) INR: 1.1 (07/25/24) Sodium: 137 mmol/L (07/29/24) Bilirubin, Total: 0.9 mg/dL (07/25/24) RBC:?4 m/mm3?Low (07/29/24) Protime (PT):?11.9 seconds?High (07/25/24) Potassium: 4.1 mmol/L (07/29/24) ? Hgb:?11.9 Gm/dL?Low (07/29/24) ? Chloride: 103 mmol/L (07/29/24) ? Hct:?37.4 %?Low (07/29/24) ? Bicarbonate Level: 23 mmol/L (07/29/24) ? MCV: 93.5 femtoliters (07/29/24) ? Anion Gap: 11 mmol/L (07/29/24) ? Platelet Count: 202 k/mm3 (07/29/24) ? Glucose Level:?123 mg/dL?High (07/29/24) ? ? ? BUN: 14 mg/dL (07/29/24) ? ? ? Creatinine-Blood: 1 mg/dL (07/29/24) ? ? ? Estimated GFR Creatinine: 78 ML/MIN/1.73 M2 (07/29/24) ? ? ? Calcium: 8.6 mg/dL (07/29/24) ? ? ? Magnesium: 2.1 mg/dL (07/25/24) ? ? ? Protein, Total: 7.6 Gm/dL (07/25/24) ? ? ? Albumin: 4.6 Gm/dL (07/25/24) ? ? ? Alkaline Phosphatase: 87 units/L (07/25/24) ? ? ? AST (SGOT): 19 units/L (07/25/24) ? ? ? ALT (SGPT): 23 units/L (07/25/24) Narrative Narrative: ECG 12-Lead * Preliminary * ? 08:07:35 Ventricular Rate: 94 BPM Atrial Rate: 94 BPM P-R Interval: 160 ms QRS Duration: 106 ms Q-T Interval: 374 ms QTC Calculation(Bazett): 467 ms P Hernandez: 78 degrees R Hernandez: -78 degrees T Hernandez: 64 degrees Normal sinus rhythm Left axis deviation Incomplete right bundle branch block Nonspecific T wave abnormality Prolonged QT Abnormal ECG When compared with ECG of 27-Jul-2024 11:51, Incomplete right bundle branch block is now Present Stress Test NM Myocard Perf SPECT Multi ? 08:55:13 Summary 1. Myocardial perfusion imaging is abnormal with an inferior fixed perfusion defect after Regadenoson infusion. These findings are consistent with scar. There is no evidence of ischemia. 2. LV function is normal with an E.F. of 63% at rest and 65% after IV administration of Regadenoson with decreased inferior wall motion and thickening. 3. EKG portion of the stress test is reported separately. Signatures _ _ ? Signed By: Juan Cifuentes MD EchoEchocardiogram - Complete ? 10:28:45 Summary Normal left ventricular size and function with ejection fraction of 60-65%. No focal wall motion abnormalities. Normal right ventricular size and function. No significant valvular disease. Comparison No prior study available for comparison. Signature ? Signed By: Anais SHEPPARD, Sabas [facility] Carotid Duplex Scan Bilat ? 09:00:58 Summary: Right Side: 50-69% stenosis in the Internal Carotid Artery, previously up to 198.8/21.6 cm/s. Elevated velocities are detected in the External Carotid Artery as detailed above, previously 300.3/22.2 cm/s. Antegrade flow in the Vertebral Artery. Elevated multiphasic flow is seen in the Subclavian Artery, previously 280 cm/s. Left Side: Status post endarterectomy. Patent Internal Carotid Artery with velocities unchanged from the previous of 107/8.4 cm/s . Antegrade flow seen in the Vertebral Artery. Elevated multiphasic flow in the Subclavian artery, previously 216.3 cm/s. Comparison is made to the previous ultrasound study dated 06/17/24. ? Signed By: Bladimir Laguna MD CTA Abdomen IMPRESSION: No evidence of pulmonary embolism. Findings of esophagitis and possible gastritis. Prominent inflammatory changes in the descending duodenum consistent with duodenitis. No definite findings of perforated ulcer, though some fluid is noted surrounding the duodenum. Aneurysmal dilatation of the distal thoracic aorta measuring 4.5 cm as well as abdominal aortic aneurysm status post stent graft. No acute aortic abnormality appreciated. Assessment and Plan Assessment Anesthesia Assessment: Chart Reviewed Documented by User: Mary Allison, DO 01/07/25 12:58 [facility] Past Medical History Medical History (Updated 01/05/25 @ 09:35 by Vickie Templeton NP) HLD (hyperlipidemia) HTN (hypertension) Diabetes Carotid stenosis AAA (abdominal aortic aneurysm) Gallstones COPD (chronic obstructive pulmonary disease) Pulmonary emphysema Family History Family history of problems with anesthesia: No Surgical History Surgical History (Updated 01/07/25 @ 12:26 by Sommer Rdz RN) H/O arterial bypass of lower limb History of left-sided carotid endarterectomy History of cholecystectomy History of bilateral knee replacement H/O bilateral cataract extraction History of AAA (abdominal aortic aneurysm) repair History of Problems with Anesthesia: No Social History Social History Patient Tobacco Use Status: Former Tobacco user Tobacco use type: Cigarette Use of substances other than those prescribed or required for medical reasons: No Are you DNR?: No Advance Directives: No Advance Directives Information Provided: Yes Meds Allergies Allergy/AdvReac Type Severity Reaction Status Date / Time No Known Allergies Allergy Verified 01/01/25 11:37 Home Medications ?Medication ?Instructions ?Recorded ?Confirmed ?Last Taken ?Type aspirin 81 mg tablet,delayed 81 mg PO DAILY 06/17/20 06/17/20 12/30/24 History release atorvastatin 40 mg tablet 40 mg PO BEDTIME 06/17/20 06/17/20 Unknown History meloxicam 15 mg tablet 15 mg PO DAILY 06/17/20 06/17/20 12/23/24 History multivitamin (Daily Multi-Vitamin 1 tab PO DAILY 06/17/20 06/17/20 Unknown History tablet) omeprazole 20 mg capsule,delayed 20 mg PO BID 06/17/20 06/17/20 01/07/25 History release C 250 mg-E 90 mg-zinc 40 mg-copper cap PO 10/15/24 Unknown History 1 mg-lutein 5 [id number] capsule (PreserVision AREDS 2 CO Q-10) albuterol sulfate 90 mcg/actuation 2 puff inhalation Q6H PRN SOB 10/15/24 01/07/25 History aerosol inhaler (Ventolin HFA) amlodipine 10 mg tablet 5 mg PO DAILY 10/15/24 01/07/25 History carvedilol 25 mg tablet 25 mg PO BID 10/15/24 01/07/25 History empagliflozin 10 mg tablet 10 mg PO DAILY 10/15/24 12/30/24 History (Jardiance) famotidine 40 mg tablet 40 mg PO DAILY 10/15/24 Unknown History ferrous sulfate 325 mg (65 mg 325 mg PO DAILY 10/15/24 Unknown History iron) tablet (FeroSul) rabeprazole 20 mg tablet,delayed 20 mg PO DAILY 10/15/24 Unknown History release sucralfate 1 gram tablet 1 g PO QID 10/15/24 Unknown History Exam Exam Date and Time: 01/07/25 1255 Height,Weight and Vital Signs: Height 5 ft 10 in Weight 72 kg Vital Signs Temperature 98.2 F 01/07/25 12:46 Pulse Rate 91 01/07/25 12:46 Respiratory Rate 16 01/07/25 12:46 Blood Pressure 160/74 H 01/07/25 12:46 Pulse Oximetry 96 01/07/25 12:46 Oxygen Delivery Method Room Air 01/07/25 12:46 Temperature 98.2 F 01/07/25 12:46 Pulse Rate 91 01/07/25 12:46 Respiratory Rate 16 01/07/25 12:46 Blood Pressure 160/74 H 01/07/25 12:46 Pulse Oximetry 96 01/07/25 12:46 Oxygen Delivery Method Room Air 01/07/25 12:46 Airway Mallampati Class: II TM Dist: <=3cm Neck ROM: Limited Loose/Missing/Broken Teeth: No (patient denies any loose or broken teeth) Heart: S1S2 Lungs: CTAB Assessment and Plan Assessment Anesthesia Assessment: Anesthesia Plan Discussed and Chart Reviewed Final Anesthetic Review Family History of Problems with Anesthesia: No History of Problems with Anesthesia: No NPO: Yes ASA Class: III Final Preanesthetic Review: No Changes in Pt Med Stat, Meds/Allgs Chart Reviewed, Consent Obtained/Reviewed and Anes Risks/Benef Reviewed Patient Risk: Intermediate Procedure Risk: Intermediate Anesthetic Plan Anesthetic Plan: GA and Agree w/ Assess. and Plan Disposition: Standard PACU
--- NOTE | 2025-01-07 14:18 | P.OP_ITS ---
Operative Note Operative Note Date of Service: 01/07/25 Narrative: Preop diagnosis: Symptomatic gallstones Postop diagnosis: Symptomatic gallstones with chronic cholecystitis, significant adhesions surrounding the gallbladder, edematous gallbladder Procedure: Laparoscopic cholecystectomy Surgeon: Zohaib Mosher MD medical services assistant: MANDEEP Banda The patient is a 74-year-old male who had been diagnosed to have gallstones, complaining of persistent symptoms. He was seen in the office last week. He wanted to proceed with cholecystectomy in view of this persistent pain. He understood the technique of the planned procedure as was the risks, benefits, and alternatives. He was brought to the operating room and placed supine under general anesthesia via endotracheal tube. The abdomen was prepped and draped in the usual sterile fashion. A surgical time-out was done. The patient received Cefotan 2 g IV preoperatively. I made a short incision on the supraumbilical area using blade 15. This was carried down through the full-thickness of the skin and thick subcutaneous fat to the fascia. The fascia was incised. The peritoneum was entered. Through this incision a Evans port was introduced pneumoperitoneum was introduced to a pressure of 15 mm Hg. From here on the rest of procedure was done under vision with the 10 mm flat laparoscope. With laparoscopic visualization, I inserted a 5/12 mm port in the epigastric area. Two 5 mm ports introduced a small incision below the subcostal margin along the anterior axillary line and the midclavicular line. Graspers were placed through these working ports. The patient was placed in a head up and [id number] position There was note of a adherent omentum surrounding the gallbladder. We carefully he had a grasper near the fundus of the gallbladder to bring this up cephalad. I then proceeded to do careful takedown of all these very adherent omentum from the gallbladder using [place] dissector. We had to proceed slowly in view of oozing from this chronically inflamed omentum and adhesions. We continued to separate the aberrant omentum from the gallbladder wall anteriorly until we are able to carefully I expose most of the gallbladder. We repositioned the grasper towards the fundus and applied a 2nd grasper towards the pouch to retract the gallbladder cephalad and lateral fashion. We then proceeded to continue to gently dissect all these indurated fatty tissue off of the neck of the gallbladder. The gallbladder itself was supple although distended. There did appear to be some edema of the gallbladder wall. I carefully dissected the neck of the gallbladder using the [place] dissector to tease off the peritoneal lining and by doing so I was able to visualize the cystic duct. With continued dissection using the [place] dissector, I was able to visualize the cystic duct and its confluence with the neck of the gallbladder. The cystic artery was also seen running alongside this. We had achieved a critical view of the hepatocystic triangle at this point. I had to clear up the rest of the hepatocystic triangle of he had had fat bluntly with the [place] dissector. Once we had confirmation of the confluence of the neck of the gallbladder with the cystic duct, I applied clips on the cystic duct with 2 clips being applied distally. The cystic duct was transected between clips with Endo scissors. I applied clips on the cystic artery with 2 clips applied distally. The cystic artery was transected with the clips with Endo scissors as well. With traction on the gallbladder away from the liver bed I proceeded to then carefully divide the hilum with the electrocautery spatula. I divided through the rest of the hilum with the fistula all the way to the interface of the gallbladder wall and the liver bed. I incised the peritoneum of the gallbladder to create a plane of dissection between the gallbladder wall and the liver bed. I developed this plane of dissection with a combination of blunt dissection with the tip of the spatula as well as electrocautery until the entire gallbladder was completely from the liver bed. It was noted that these planes of dissection were not well-defined in view of chronic inflammatory changes. Therefore encounter a tear in the bladder wall with note of spillage of bile in the area. The gallbladder was retrieved through an endobag through the umbilical incision. I reinserted all ports and re-insufflated. There was note of good hemostasis on the surgical site including the liver bed. In view of the spillage of bile, we copiously irrigated and suctioned the irrigant fluid in the irrigant fluid in the end. I observed all 4 quadrants and there was no other pathology seen. There was note of some oozing from her bed which we controlled with electrocautery as well as application of the Surgicel. There was no evidence of any bowel injury or bile leak. We observed for a minute and once hemostasis was confirmed, we desufflated through the port sites. The ports were removed, with the umbilical port removed last. The fascia of the umbilical incision was closed with a [id number] Polysorb 0 stitch. Skin closure was achieved on all incisions using Polysorb 4-0 subcuticular running sutures. All incisions were infiltrated with Marcaine 0.5% for postop analgesia. Steri-Strips and dressings were applied and the procedure was completed. The patient tolerated the procedure well. There were no immediate complications. Initial and final counts of sponges and instruments were correct. Estimated blood loss was about 50 cc. The patient was extubated without difficulty and transferred to the recovery room with stable vital signs.
[2025-01-07] MEDS: oxyCODONE HCl Immed Release 5 MG TABLET PO (15:19)
== END 2025-01-07 16:48 | disposition home or self-care (01) ==
PROVIDERS: PCP Internal Medicine; Visit Provider Surgery
PROC: 0FT44ZZ Resection of Gallbladder, Percutaneous Endoscopic Approach (ICD-10-PCS; CPT 47562; principal; 2025-01-07 13:30)
DX: K80.12 Calculus of gallbladder with acute and chronic cholecystitis without obstruction (principal); K82.8 Other specified diseases of gallbladder; K82.A1 Gangrene of gallbladder in cholecystitis; J44.9 Chronic obstructive pulmonary disease, unspecified; I71.40 Abdominal aortic aneurysm, without rupture, unspecified; I10 Essential (primary) hypertension; E11.9 Type 2 diabetes mellitus without complications; E78.5 Hyperlipidemia, unspecified; Z87.891 Personal history of nicotine dependence; Z98.890 Other specified postprocedural states
CPT/HCPCS: 47562; 82947; 88304; J0131; J0525; J0690; J1171; J2003; J2371; J2704; J2795; J3010

== ENCOUNTER → 2025-01-07 11:56 | Outpatient (BNV) | payer MEDICARE, OTHER, SELFPAY | PROVIDERS: PCP Internal Medicine; Visit Provider Surgery | DX: K80.11 Calculus of gallbladder with chronic cholecystitis with obstruction (principal) | CPT/HCPCS: 47562 ==

== ENCOUNTER 2025-01-14 11:27 | Outpatient (AMB) | payer MEDICARE, OTHER, SELFPAY ==
--- OUTSIDE RECORDS SUMMARY | 2025-01-12 23:59 | XMS_ITS | Continuity of Care Document ---
Author Organization [facility] Address [address] [place] [id number]- Care Team Providers Care Sandwich Hand Name Role Phone Jorge L SHEPPARD, Kiko Primary Care Physician [phone] Encounter [facility] Date(s): 01/05/25 - 01/12/25 [facility] [address] [place] [address]- Attending Physician: Tawanna Uribe Encounter Type: Office Visit Allergies, Adverse Reactions, Alerts Substance Criticality Severity Reaction Reaction Severity Status vardenafil headache Active doxycycline 1 GI Upset GI crampnig Active 1was ok with tablet but capsule gave GI upset Functional Status Functional Status Assessment Assessment Assessment Component Result Effecti ve Date Disability status [CUBS] I'm Safe - I rarely have acute or chronic symptoms affecting housing, employment, social interactions, etc. 01/05/25 Because of a physica l, mental, or emotional condition, do you have difficulty doing errands alone such as visiting a physician's office or shopping No 01/05/25 Do you have serious difficulty walking or climbing stairs No 01/05/25 Do you have difficul ty dressing or bathing No 01/05/25 Do you need any mukund tional assistance or accommodations during your visit No 01/05/25 Because of a physica l, mental, or emotional condition, do you have serious difficulty concentrating, remembering, or making decisions No 01/05/25 Difficulty communica ting in usual language No 01/05/25 Are you deaf, or do you have serious difficulty hearing No 01/05/25 Difficulty Reading O r Writing No 01/05/25 Are you blind, or do you have serious difficulty seeing, even when wearing glasses No 01/05/25 Immunizations Given and Recorded Vaccine Date Status Refusal Reason SARS-CoV-2 (COVID-19) mRNA BNT-162b2 vac 01/10/21 Recorded SARS-CoV-2 (COVID-19) mRNA-1273 vaccine 04/28/20 R ecorded SARS-CoV-2 (COVID-19) mRNA-1273 vaccine 03/31/20 R ecorded Medications acetaminophen 500 mg oral tablet 2 tablet = 1,000 mg, By Mouth, Every 6 hours, PRN as needed for pain or fever, Maintenance, 11/04/2510:12:00 AM EDT Start Date: 11/04/24 Status: Ordered Medication Dispense Status: Completed Total Allowed Fills: 1 Fills Dispensed: 0 albuterol-ipratropium 3 mg-0.5 mg/3 ml inhalation solution 3 mL, Neb, INHALE 1 VIAL VIA NEBULIZER EVERY 4 HOURS NEEDED Start Date: 11/04/24 Status: Ordered Medication Dispense Status: Completed Total Allowed Fills: 1 Fills Dispensed: 0 amLODIPine 5 mg oral tablet 1 tablet, By Mouth, Daily, # 90 tablet, 3 Refills, Maintenance, 09/10/24 1:15:00 PM EDT, [facility]/pharmacy #[id number], 178, cm, 08/20/24 8:03:00 EDT, Height, 78.2, kg, 07/26/24 1:32:00 EDT, Dry Weight Start Date: 09/10/24 Status: Ordered Medication Dispense Status: Completed Quantity: 90.0 Unit: tablet Total Allowed Fills: 4 Fills Dispensed: 0 carvedilol 25 mg oral tablet 1, tablet, By Mouth, 2 times a day, # 180 tablet, Refills 3, Maintenance, 12/17/24 7:33:00 AM EDT, Route to Pharmacy Electronically, [id number], 179, cm, 11/18/24 10:11:00 EDT, Height, 78, kg, 11/12/24 13:43:00 EDT, Dry Weight Start Date: 12/17/24 Status: Ordered Medication Dispense Status: Completed Quantity: 180.0 Unit: tablet Total Allowed Fills: 1 Fills Dispensed: 0 ferrous sulfate 324 mg (65 mg elemental iron) oral delayed release tablet 2 tablet = 648 mg, By Mouth, Daily, 0 Refills, Maintenance, 06/06/23 9:24:00 AM EDT Start Date: 06/06/23 Status: Ordered Medication Dispense Status: Completed Total Allowed Fills: 1 Fills Dispensed: 0 Jardiance 10 mg oral tablet 1 tablet = 10 mg, By Mouth, Daily in AM, Maintenance, 11/04/24 11:14:00 AM EDT, Tablet Start Date: 11/04/24 Status: Ordered Medication Dispense Status: Completed Total Allowed Fills: 1 Fills Dispensed: 0 levalbuterol 45 mcg/inh inhalation aerosol 2 puffs, Inhalation, Every 6 hours, PRN Wheezing/Shortness of Breath Start Date: 11/04/24 Status: Ordered Medication Dispense Status: Completed Total Allowed Fills: 1 Fills Dispensed: 0 Lipitor 40 mg oral tablet 1 tablet = 40 mg, By Mouth, Daily at bedtime, 0 Refills, Maintenance, 09/08/20 1:05:00 PM EDT, Tablet Start Date: 09/08/20 Status: Ordered Medication Dispense Status: Completed Total Allowed Fills: 1 Fills Dispensed: 0 meloxicam 15 mg oral tablet 1 tablet = 15 mg, By Mouth, Daily at bedtime Start Date: 11/04/24 Status: Ordered Medication Dispense Status: Completed Total Allowed Fills: 1 Fills Dispensed: 0 RABEprazole 20 mg oral delayed release tablet 1 tablet = 20 mg, By Mouth, 2 times a day, # 60 tablet, 1 Refills, Maintenance, 07/30/24 11:07:00 AMEDT, [facility]/pharmacy #[id number], Partial fill upon patient request if the prescription is for a schedule IIopioid drug., 178, cm, 07/29/24 13:18:00 EDT, Height, 78.2, kg, 07/26/24 1:32:00 EDT, Dry Weight Start Date: 07/30/24 Stop Date: 09/28/24 Status: Ordered Medication Dispense Status: Completed Quantity: 60.0 Unit: tablet Total Allowed Fills: 2 Fills Dispensed: 0 Stiolto Respimat 2.5 mcg-2.5 mcg inhalation aerosol 2 puffs, Inhalation, Daily in AM, 0 Refills, Maintenance, 09/05/16 8:28:01 AM EDT Start Date: 09/05/16 Status: Ordered Medication Dispense Status: Completed Total Allowed Fills: 1 Fills Dispensed: 0 sucralfate 1 gm oral tablet 1 Gm, 1, tablet, By Mouth, 4 times a day, # 120 tablet, Refills 1, Tot. Refills 1, Maintenance, 07/30/24 11:07:00 AM EDT, Route to Pharmacy Electronically, [facility]/pharmacy #[id number], Partial fill upon patient request if the prescription is for a schedule II opioid drug., 178, cm, 07/29/24 13:18:00 EDT, Height, 78.2, kg, 07/26/24 1:32:00 EDT, Dry Weight Start Date: 07/30/24 Stop Date: 09/28/24 Status: Ordered Medication Dispense Status: Completed Quantity: 120.0 Unit: tablet Total Allowed Fills: 2 Fills Dispensed: 0 Tadalafil (Eqv-Cialis) 20 mg oral tablet 1 tablet = 20 mg, By Mouth, PRN as needed for ED, 0 Refills, Maintenance, 11/20/22 7:54:00 AM EDT Start Date: 11/20/22 Status: Ordered Medication Dispense Status: Completed Total Allowed Fills: 1 Fills Dispensed: 0 Vitamin C 250 mg oral tablet 1 tablet = 250 mg, By Mouth, Daily, 0 Refills, Maintenance, 11/04/24 11:20:00 AM EDT Start Date: 11/04/24 Status: Ordered Medication Dispense Status: Completed Total Allowed Fills: 1 Fills Dispensed: 0 Problem List Condition Confirmation Course Effective Dates Status Health Status Informant Abdominal aortic aneurysm without rupture Confirmed Active COPD (chronic obstructive pulmonary disease) Confirmed Active Diabetes mellitus Confirmed Active Carotid artery disease Confirmed Active Hyperlipidemia Confirmed Active Hypertension Confirmed Active Hypertriglyceridemia Confirmed Active Claudication of calf muscles Confirmed Active Preoperative examination Confirmed Active Abnormal nuclear cardiac imaging test Confirmed Active Vital Signs Most recent to oldest [Reference Range]: 1 2 Height 179 cm (01/05/25 8:22 AM) 179 cm (01/05/25 8:16 AM) Weight 73.4 kg (01/05/25 8:16 AM) Oxygen Saturation [94-100 %] 100 % (01/05/25 8:16 AM) Pulse Rate [55-90 bpm] 98 bpm *H* (01/05/25 8:22 AM) 96 bpm *H* (01/05/25 8:16 AM) Body Mass Index [18.5-24.99 kg/m2] 22.91 kg/m2 (01/05/25 8:16 AM) Blood Pressure [90-138/55-84 mm Hg] 126/ 70mm Hg (01/05/25 8:22 AM) 148/81mm Hg *H* (01/05/25 8:16 AM) Mode of Delivery (Oxygen) Room air (01/05/25 8:16 AM) Blood pressure sites Arm, right (01/05/25 8:22 AM) Arm, left (01/05/25 8:16 AM) Weight Obtained Via Bed scale (01/05/25 8:16 AM) Social History Social History Type Response Smoking Status Former smoker, quit more than 30 days ago; Other: QUIT 1998; entered on: 12/09/21 Sex Sex Representation Male (finding) EKG study * Event Display: ECG 12-Lead Authored Date: Please click on pdf link to open report * Event Display: ECG 12-Lead Authored Date: Ventricular Rate: 94 BPM Atrial Rate: 94 BPM P-R Interval: 160 ms QRS Duration: 106 ms Q-T Interval: 374 ms QTC Calculation(Bazett): 467 ms P Haslett: 78 degrees R Haslett: -78 degrees T Haslett: 64 degrees Normal sinus rhythm Left axis deviation Incomplete right bundle branch block Nonspecific T wave abnormality Prolonged QT Abnormal ECG When compared with ECG of 27-Jul-2024 11:51, Incomplete right bundle branch block is now Present Confirmed by DARVIN CALLE MD ([id number]) on 01/05/2025 1:12:45 PM [place]: DARVIN CALLE MD Cardiology Outpatient Note * Tawanna Uribe: PERFORM Event Display: Cardiology Note Office Authored Date: Patient: ??MIKAL DENNY ? Age:??74 Years?Sex:??Male?:??1950?LOC:??[facility]?? Indication for Consult pre op History of Present Illness/Interval History Mikal is a 74-year-old male with a history of presumed CAD, hypertension, hyperlipidemia, AAA s/pendovascular repair, bilateral carotid disease s/p left CEA, COPD, diabetes mellitus who presents today for preoperative cardiac evaluation.?? He was last seen by cardiology on 08/20/[address] at which time his cardiac status was felt to be stable.?? He was seen by vascular surgery on 11/18/2024 at which time his cardiac status was felt to be stable. ?? He is scheduled to undergo a??cholecystectomy on 01/07/2025.?? Over the past 1.5 - 2 months he has been having intermittent abdominal pain that is worse after he eats for which he has to take OxyContin 3 times per day to alleviate his pain.?? He has lost 10 pounds due to nausea and reduced desire to eat. From a cardiac standpoint he has been stable.?? He denied chest pain, dizziness, lightheadedne ss, presyncope, orthopnea, weight gain, lower extremity edema.?? He has chronic shortness of breathfor which she has a rescue inhaler and neb treatments that noted it to be at baseline.?? He has been having ongoing leg numbness when she is not intermittent in nature.?? He is following up with vascular surgery tomorrow for it. ?? TTE 04/17/2019: LVEF 60-65%, no regional wall motion abnormalities, normal RV function, no significant valvular disease Review of Systems Pertinent positives as per HPI. Rest of ROS??reviewed and negative. Physical Exam Vitals & Measurements HR:??98??(Peripheral)?? BP:??126/70?? SpO2:??100%?? HT:??179??cm?? WT:??73.4??kg?? BMI:??22.91?? Weight lb/oz: 161 lb 13 oz GENERAL: Well appearing, NAD, A/Ox3, normal mood and affect?? HEENT: Moist oral mucosa. Atraumatic, normocephalic. EOM grossly intact. NECK: No JVD HEART: S1S2, heart rate regular, no murmur CHEST: CTA, unlabored respiratory effort, no wheezes, no rales SKIN: No unusual bruising or prominent lesions MSK: No lower extremity??edema?? Assessment/Plan Preoperative cardiovascular??evaluation Overall his cardiac status is stable.?? He does not experience??anginal, presyncopal,??or heart failure symptoms.?? HR and BP stable in the office today. ??Euvolemic on exam. -He has presumed coronary disease in the setting of??other known PAD/carotid disease. -EKG in the office today:??Normal sinus rhythm??with a ventricular rate of 94 bpm, incomplete rightbundle branch block,??nonspecific T wave abnormality but no evidence of acute ischemia -TTE 04/17/2019: LVEF 60-65%, no regional wall motion abnormalities, normal RV function, no significant valvular disease -His cardiac status is optimized??and he requires no additional testing prior to surgery. -Revised cardiac risk index??of 0.5% risk of major cardiac event.?? [place]??perioperative risk??of 0.6%??of NE or cardiac arrest in the perioperative period. ?? Hypertension BP initially 148/81 but 126/70 on repeat measurement??in the office today. -Continue amlodipine 5 mg daily and carvedilol 25 mg twice daily ?? Hyperlipidemia -Continue atorvastatin -Lipid panel 09/22/2022: LDL 51, at goal ?? Bilateral carotid disease s/p left CEA AAA s/p endovascular repair -??He??is due to follow-up with vascular surgery tomorrow??for evaluation of intermittent??leg numbness Amlodipine 5 mg daily, atorvastatin, carvedilol 25 mg twice daily Follow-Up Appointment Order He should already have 1 year follow-up with Dr. Calle scheduled??from prior appointment. Medical Decision Making MODERATE - chronic illness w/ exac, progression, or AE of Tx, 2+ stable chronic illnesses, 1 new prob w/ ? prognosis, 1 acute w/ systemic Sx or comp injury; 2 of (note / test / order / indep historian = 3), interpretation / discussion; MOD risk +SDOH Allergies doxycycline??GI Upset, GI crampnig vardenafil??headache Home Medications Acetaminophen(acetaminophen 500 mg oral tablet), 1000 mg= 2 tablet, By Mouth, Every 6 hours, PRN Albuterol/Ipratropium(albuterol-ipratropium 3 mg-0.5 mg/3 ml inhalation solution), 3 mL, Neb Amlodipine(amLODIPine 5 mg oral tablet), 1 tablet, By Mouth, Daily, 3 refills Ascorbic Acid(Vitamin C 250 mg oral tablet), 250 mg= 1 tablet, By Mouth, Daily Atorvastatin(Lipitor 40 mg oral tablet), 40 mg= 1 tablet, By Mouth, Daily at bedtime Carvedilol(carvedilol 25 mg oral tablet), 1 tablet, By Mouth, 2 times a day empagliflozin(Jardiance 10 mg oral tablet), 10 mg= 1 tablet, By Mouth, Daily in AM Ferrous Sulfate(ferrous sulfate 324 mg (65 mg elemental iron) oral delayed release tablet), 648 mg=2 tablet, By Mouth, Daily Levalbuterol(levalbuterol 45 mcg/inh inhalation aerosol), 2 puffs, Inhalation, Every 6 hours, PRN Meloxicam(meloxicam 15 mg oral tablet), 15 mg= 1 tablet, By Mouth, Daily at bedtime olodaterol-tiotropium(Stiolto Respimat 2.5 mcg-2.5 mcg inhalation aerosol), 2 puffs, Inhalation, Daily in AM Rabeprazole(RABEprazole 20 mg oral delayed release tablet), 20 mg= 1 tablet, By Mouth, 2 times a day, 1 refills Sucralfate(sucralfate 1 gm oral tablet), 1 Gm= 1 tablet, By Mouth, 4 times a day, 1 refills tadalafil(Tadalafil (Eqv-Cialis) 20 mg oral tablet), 20 mg= 1 tablet, By Mouth, PRN Discharge Medications Unchanged Acetaminophen (acetaminophen 500 mg oral tablet)2 tab(s) Oral every 6 hours as needed as needed forpain or fever. Albuterol/Ipratropium (albuterol-ipratropium 3 mg-0.5 mg/3 ml inhalation solution)3 Milliliter Nebulized inhalation. INHALE 1 VIAL VIA NEBULIZER EVERY 4 HOURS NEEDED. Amlodipine (amLODIPine 5 mg oral tablet)1 tab(s) Oral Daily. Refills: 3. Ascorbic Acid (Vitamin C 250 mg oral tablet)1 tab(s) Oral Daily. Atorvastatin (Lipitor 40 mg oral tablet)1 tab(s) Oral Daily at Bedtime. Carvedilol (carvedilol 25 mg oral tablet)1 tab(s) Oral twice a day. Refills: 3. empagliflozin (Jardiance 10 mg oral tablet)1 tab(s) Oral Daily in the morning. Ferrous Sulfate (ferrous sulfate 324 mg (65 mg elemental iron) oral delayed release tablet)2 tab(s)Oral Daily. Levalbuterol (levalbuterol 45 mcg/inh inhalation aerosol)2 puff(s) Inhalation every 6 hours as needed Wheezing/Shortness of Breath. Meloxicam (meloxicam 15 mg oral tablet)1 tab(s) Oral Daily at Bedtime. olodaterol-tiotropium (Stiolto Respimat 2.5 mcg-2.5 mcg inhalation aerosol)2 puff(s) Inhalation Daily in the morning. Rabeprazole (RABEprazole 20 mg oral delayed release tablet)1 tab(s) Oral twice a day for 30 Days. Refills: 1. Sucralfate (sucralfate 1 gm oral tablet)1 tab(s) Oral 4 times a day for 30 Days. Refills: 1. tadalafil (Tadalafil (Eqv-Cialis) 20 mg oral tablet)1 tab(s) Oral as needed as needed for ED. Lab Results Cardiology Labs Blood Count & Diff COAG?? General Chemistry?? Cardiac?? WBC: 9.1 k/mm3 (07/29/24) INR: 1.1 (07/25/24) Sodium: 137 mmol/L (07/29/24) Bilirubin, Total: 0.9 mg/dL (07/25/24) RBC:??4 m/mm3??Low (07/29/24) Protime (PT):??11.9 seconds??High (07/25/24) Potassium: 4.1 mmol/L (07/29/24) ?? Hgb:??11.9 Gm/dL??Low (07/29/24) ?? Chloride: 103 mmol/L (07/29/24) ?? Hct:??37.4 %??Low (07/29/24) ?? Bicarbonate Level: 23 mmol/L (07/29/24) ?? MCV: 93.5 femtoliters (07/29/24) ?? Anion Gap: 11 mmol/L (07/29/24) ?? Platelet Count: 202 k/mm3 (07/29/24) ?? Glucose Level:??123 mg/dL??High (07/29/24) ? BUN: 14 mg/dL (07/29/24) ? Creatinine-Blood: 1 mg/dL (07/29/24) ? Estimated GFR Creatinine: 78 ML/MIN/1.73 M2 (07/29/24) ? Calcium: 8.6 mg/dL (07/29/24) ? Magnesium: 2.1 mg/dL (07/25/24) ? Protein, Total: 7.6 Gm/dL (07/25/24) ? Albumin: 4.6 Gm/dL (07/25/24) ? Alkaline Phosphatase: 87 units/L (07/25/24) ? AST (SGOT): 19 units/L (07/25/24) ? ALT (SGPT): 23 units/L (07/25/24) ?? Diagnostic Impression CT CT Angio Abdomen and Pelvis ?? 17:28:21 IMPRESSION: * Status post endograft repair of an infrarenal abdominal aortic aneurysm with a left unilateral endograft and a left to right femorofemoral bypass graft. * No evidence of an endoleak. * The bypass grafts are widely patent. * Likely postsurgical seroma surrounds the right common femoral bypass graft anastomosis. Given thelimitations of the examination, no overt signs of infection. Recommend clinical correlation. No acute abnormality identified in the abdomen or pelvis. ?? * A critical result message (Yellow) has been communicated via the [employer] system on 01/11/2022 6:02 PM, Message ID [id number]. WSN: [id number] ? Ordering Physician: Marisel Fong ?? Signed By: Barak Ybarra MD ECG ECG 12-Lead * Preliminary * ?? 08:07:35 Please click on pdf link to open report ?? ECG 12-Lead * Preliminary * ?? 08:07:35 Ventricular Rate: 94 BPM Atrial Rate: 94 BPM P-R Interval: 160 ms QRS Duration: 106 ms Q-T Interval: 374 ms QTC Calculation(Bazett): 467 ms P Haslett: 78 degrees R Haslett: -78 degrees T Haslett: 64 degrees Normal sinus rhythm Left axis deviation Incomplete right bundle branch block Nonspecific T wave abnormality Prolonged QT Abnormal ECG When compared with ECG of 27-Jul-2024 11:51, Incomplete right bundle branch block is now Present ?? [place]: , Stress Test NM Myocard Perf SPECT Multi ?? 08:55:13 Summary 1. Myocardial perfusion imaging is abnormal with an inferior fixed perfusion defect after Regadenoson infusion. These findings are consistent with scar. There is no evidence of ischemia. 2. LV function is normal with an E.F. of 63% at rest and 65% after IV administration of Regadenoson with decreased inferior wall motion and thickening. 3. EKG portion of the stress test is reported separately. ?? Signatures _ _ ?? Signed By: Juan Cifuentes MD Echo Echocardiogram - Complete ?? 10:28:45 Summary Normal left ventricular size and function with ejection fraction of 60-65%. No focal wall motion abnormalities. Normal right ventricular size and function. No significant valvular disease. ?? Comparison No prior study available for comparison. ?? Signature ?? Signed By: Anais SHEPPARD, Sabas Zhao VL Studies VL Carotid Duplex Scan Bilat ?? 09:00:58 Summary: Right Side: 50-69% stenosis in the Internal Carotid Artery, previously up to 198.8/21.6 cm/s. Elevated velocities are detected in the External Carotid Artery as detailed above, previously 300.3/22.2 cm/s. Antegrade flow in the Vertebral Artery. Elevated multiphasic flow is seen in the Subclavian Artery, previously 280 cm/s. ?? Left Side: Status post endarterectomy. Patent Internal Carotid Artery with velocities unchanged from the previous of 107/8.4 cm/s . Antegrade flow seen in the Vertebral Artery. Elevated multiphasic flow in the Subclavian artery, previously 216.3 cm/s. ?? Comparison is made to the previous ultrasound study dated 06/17/24. ?? Signed By: Bladimir Laguna MD Problem List/Past Medical History Ongoing Abdominal aortic aneurysm without rupture Abnormal nuclear cardiac imaging test Carotid artery disease Claudication of calf muscles COPD (chronic obstructive pulmonary disease) Diabetes mellitus Hyperlipidemia Hypertension Hypertriglyceridemia Preoperative examination Procedure/Surgical History No qualifying data available. Social History Alcohol Use:Current Frequency:Daily Type:Beer Electronic Cigarette/Vaping E-Cigarette Use:Never Home/Environment Living situation:Home/Independent Lives with:Spouse Substance Abuse Use:Never Tobacco Use:Former smoker, quit more than 30 days ago Other:QUIT 1998 Family History No family history recorded. Note * Abby Scott: PERFORM Event Display: Patient Education/Instruction Authored Date: [id number] Ambulatory Adult Visit Summary [facility] [address] [place] [address] Name: MIKAL DENNY : 1950?? Visit: 01/05/2025 08:09?? Ambulatory Visit Instructions ?? Your Care Team Primary Care Provider Kiko Coats MD? This Visit Provider Tawanna Uribe Your Diagnosis Pre-op exam Vitals Signs Pulse Rate:??98 bpm??High Height: 179 cm Systolic Blood Pressure: 126 mm Hg Weight: 73.4 kg Diastolic Blood Pressure: 70 mm Hg Body Mass Index: 22.91 kg/m2 Oxygen Saturation: 100 % Body surface area: 1.91 What to do next Scheduled Follow-Up Appointments Sunday 4:00 PM EST ?? Type: Return With: Richard Gomez MD Where: [facility] [address] [place] [address]- Status: Pending Future Orders Creatinine - Routine, Once, 11/18/24 10:31:00 EDT, Future Order, [facility], Blood?? Medications The list below reflects the information in our records and provided by you today along with any changes made during this visit. Please continue your medications until treatment is completed or stopped by your provider. If this is different from the information you have or there are other questions,please contact the prescribing provider. What How Much When Instructions Unchanged Acetaminophen (acetaminophen 500 mg oral tablet) 2 tab(s) Oral Every 6 hours as needed for as needed for pain or fever Unchanged Albuterol/ Ipratropium (albuterol-ipratropium 3 mg-0.5 mg/ 3 ml inhalation solution) 3 Milliliter Nebulized inhalation Special Instructions: INHALE 1 VIAL VIA NEBULIZER EVERY 4 HOURS NEEDED ?? Unchanged Amlodipine (amLODIPine 5 mg oral tablet) 1 tab(s) Oral Daily Ordering Physician: Rocky Street NP Unchanged Ascorbic Acid (Vitamin C 250 mg oral tablet) 1 tab(s) Oral Daily Unchanged Atorvastatin (Lipitor 40 mg oral tablet) 1 tab(s) Oral Daily at Bedtime Unchanged Carvedilol (carvedilol 25 mg oral tablet) 1 tab(s) Oral Twice a day Ordering Physician: Darvin Calle MD Unchanged empagliflozin (Jardiance 10 mg oral tablet) 1 tab(s) Oral Daily in the morning Unchanged Ferrous Sulfate (ferrous sulfate 324 mg (65 mg elemental iron) oral delayed release tablet) 2 tab(s) Oral Daily Unchanged Levalbuterol (levalbuterol 45 mcg/ inh inhalation aerosol) 2 puff(s) Inhalation Every 6 hours as needed for Wheezing/Shortness of Breath Unchanged Meloxicam (meloxicam 15 mg oral tablet) 1 tab(s) Oral Daily at Bedtime Unchanged olodaterol-tiotropium (Stiolto Respimat 2.5 mcg-2.5 mcg inhalation aerosol) 2 puff(s) Inhalation Daily in the morning Unchanged Rabeprazole (RABEprazole 20 mg oral delayed release tablet) 1 tab(s) Oral Twice a day Duration: 30 Days Ordering Physician: Magnolia De Paz MD Unchanged Sucralfate (sucralfate 1 gm oral tablet) 1 tab(s) Oral 4 times a day Duration: 30 Days Ordering Physician: Magnolia De Paz MD Unchanged tadalafil (Tadalafil (Eqv-Cialis) 20 mg oral tablet) 1 tab(s) Oral As needed for as needed for ED Medications and Immunizations Administered Medications Given During Visit No medications given during this visit.?? Allergies (NKA means No Known Allergies) doxycycline??GI Upset, GI crampnig vardenafil??headache Common Emergency Awareness Tips IS IT A STROKE? Act FAST and Check for these signs: FACE Does the face look uneven? ARM Does one arm drift down? SPEECH Does their speech sound strange? TIME Call at any sign of stroke ?? Heart Attack Signs Chest discomfort: Most heart attacks involve discomfort in the center of the chest and lasts more than a few minutes, or goes away and comes back. It can feel like uncomfortable pressure, squeezing, fullness or pain. Discomfort in upper body: Symptoms can include pain or discomfort in one or both arms, back, neck, jaw or stomach. Shortness of breath: With or without discomfort. Other signs: Breaking out in a cold sweat, nausea, or lightheaded. Remember, MINUTES DO MATTER. If you experience any of these heart attack warning signs, call to get immediate medical attention! ?? Smoking can increase your chances of developing chronic health problems and can cause harmful effects to other family members in your house. If you smoke, you are strongly encouraged to quit. Please call [employer] Link at [phone] or [phone] ([phone]) or log in to [email or web address] for referrals to smoking cessation programs. ?? The National Suicide Prevention Hotline is available 11/09 if you or someone you know needs to find a reason to keep living. By calling 6-464-452-xTV (0536) you'll be connected to a skilled, trained counselor at a crisis center in your area. [facility] Portal You can view and manage your care through the patient portal or by using a health care vane of your choosing. [employer] is a website that allows you to securely view your medical information including your hospital discharge summary, office visit summaries, medications and follow-up visits. You can also request appointments, renew medications, and request access to your medical information using a health care vane of your choosing, or just ask a question. You can enroll at [email or web address] or register during your next office visit. [facility], in keeping with [facility] guidance, no longer requires face masks for staff, patientsor visitors in most situations. Similiar to time spent indoors at other locations, there is the chance that you were exposed to repiratory viruses during your time with us (such as flu or COVID-19). If you develop symptoms concerning for a viral respiratory infection, please seek testing (and treatment if indicated) from your medical provider or home test kit. ?? Disclaimer: The information provided is of a general nature and is intended to be used in conjunction with the recommendations and advice of your health care practitioner. Every effort has been made to ensure that the information provided is accurate and complete at the time it is provided to you however, as your needs change, or, as new information becomes available, different or additional instructions may be required. ?? If you have questions, please consult with your primary care provider or pharmacist, as appropriate. This information is not intended to serve as substitution for assessment and evaluation by a qualified health care provider. If you do not have a primary care provider, you may find a [facility] provider by calling [facility] Link at [phone]. Patient Care team information Care Team Personnel Name: Kiko Coats MD Position: Reference Physician Member Role: PCP Address: [address] [place] [address]- Telecom: [phone] Name: Jennifer Grullon RN Position: S RN Member Role: Primary Care Nurse Name: Ina Solano RN Position: [facility] RN Member Role: Primary Care Nurse Name: Valerio Zaman RN Position: S RN Member Role: Primary Care Nurse Name: Charity Michaels RN Position: [facility] RN Member Role: Primary Care Nurse Name: Cora Mathews RN Position: S RN Member Role: Primary Care Nurse Name: Vilma Alcantara RN Position: [facility] RN Member Role: Primary Care Nurse Name: Natalia Nash RN Position: [facility] RN Member Role: Primary Care Nurse Name: Mer Owens RN Position: S RN Member Role: Primary Care Nurse Care Team Related Persons Name: FRANCOIS DENNY Insurance Providers Guarantor name: MIKAL DENNY [facility] Plan Information #: 1 Payer: MEDICARE B Payer Identifier: Member Number: [id number] Group Number: Subscriber Identifier: [id number] Relationship to Subscriber: self Coverage Type: NA Coverage Verification Date: NA Telecom: NA Address: NA Health Plan Information #: 2 Payer: T NON HMO PLANS Payer Identifier: Member Number: [id number] Group Number: Subscriber Identifier: [id number] Relationship to Subscriber: self Coverage Type: Managed Care (Private) Coverage Verification Date: NA Telecom: NA Address:
--- OUTSIDE RECORDS SUMMARY | 2025-01-13 23:59 | XMS_ITS | Continuity of Care Document ---
Author Organization [facility] Address [address] [place] [id number]- Care Team Providers Care Religious Ritual Slaughterer Name Role Phone Kiko Coats MD Primary Care Physician [phone] En[place] [facility]/06/25 - 01/13/25 [facility] [address] [place] [address]- Encounter Diagnosis Claudication of calf muscles(Discharge Diagnosis) - 01/06/25 Abdominal aortic aneurysm without rupture(Discharge Diagnosis) - 01/06/25 Carotid artery disease(Discharge Diagnosis) - 01/06/25 Attending Physician: Richard Gomez MD Admitting Physician: Richard Gomez MD Encounter Type: Office Visit Allergies, Adverse Reactions, Alerts Substance Criticality Severity Reaction Reaction Severity Status doxycycline 1 GI Upset GI crampnig Active vardenafil headache Active 1was ok with tablet but capsule gave GI upset Immunizations Given and Recorded Vaccine Date Status [...] 3 Refills, Maintenance, 09/10/24 1:15:00 PM EDT, [facility]/pharmacy #[id number], 178, cm, 08/20/24 8:03:00 EDT, Height, 78.2, kg, 07/26/24 1:32:00 EDT, Dry Weight Start Date: 09/10/24 Status: Ordered Medication Dispense Status: Completed Quantity: 90.0 Unit: tablet Total Allowed Fills: 4 Fills Dispensed: 0 carvedilol 25 mg oral tablet 1, tablet, By Mouth, 2 times a day, # 180 tablet, Refills 3, Maintenance, 12/17/24 7:33:00 AM EDT, Route to Pharmacy Electronically, [id number], 179, cm, 11/18/24 10:11:00 EDT, Height, 78, [...] tablet, 1 Refills, Maintenance, 07/30/24 11:07:00 AMEDT, [facility]/pharmacy #[id number], Partial fill upon patient request if [...] 11:07:00 AM EDT, Route to Pharmacy Electronically, [facility]/pharmacy #[id number], Partial fill upon patient request if [...] Abnormal nuclear cardiac imaging test Confirmed Active Diagnosis Diagnosis Type Effective Dates Health Status Clinical Service Informant Claudication of calf muscles Discharge Diagnosis 01/06/25 Abdominal aortic aneurysm without rupture Discharge Diagnosis 01/06/25 Carotid artery disease Discharge Diagnosis 01/06/25 Vital Signs Most recent to oldest [Reference Range]: 1 Height 179 cm (01/06/25 4:13 PM) Weight 86 kg (01/06/25 4:13 PM) Oxygen Saturation [94-100 %] 97 % (01/06/25 4:13 PM) Pulse Rate [55-90 bpm] 97 bpm *H* (01/06/25 4:13 PM) Body Mass Index [18.5-24.99 kg/m2] 26.84 kg/m2 *H* (01/06/25 4:13 PM) Blood Pressure [90-138/55-84 mm Hg] 150/ 68mm Hg *H* (01/06/25 4:13 PM) Mode of Delivery (Oxygen) Room air (01/06/25 4:13 PM) Blood pressure sites Arm, right (01/06/25 4:13 PM) Weight Obtained Via Patient/family state d (01/06/25 4:13 PM) Social History Social History Type Response Smoking Status Former smoker, quit more than 30 days ago; Other: QUIT 1998; entered on: 12/09/21 Sex Sex Representation Male (finding) Note * Inna Rivera MA: PERFORM Event Display: Patient Education/Instruction Authored Date: [id number] Ambulatory Adult Visit Summary [facility] [address] [facility] [address] [place] [address] Name: QUENTIN DENNY : 1950?? Visit: 01/06/2025 15:44?? Ambulatory Visit Instructions ?? Your Care Team Primary Care Provider Kiko Coats MD? This Visit Provider Richard Gomez MD Your Diagnosis Claudication of calf muscles Abdominal aortic aneurysm without rupture Carotid artery disease Vitals Signs Pulse Rate:??97 bpm??High Height: 179 cm Systolic Blood Pressure:??150 mm Hg??High Weight: 86 kg Diastolic Blood Pressure: 68 mm Hg Body Mass Index:??26.84 kg/m2??High Oxygen Saturation: 97 % Body surface area: 2.07 What to do next Future Orders CT Angio Abdomen Aorta Bilat IlioFem, Routine, Reason for Exam: Claudication, IV Contrast Only, Once, *Est. 01/27/25 +/- 4 days, Single or Recurring Future Order Creatinine - Routine, Once, 11/18/24 10:31:00 EDT, Future Order, [facility], Blood?? Creatinine - Routine, Once, 01/06/25 16:39:00 EST, Future Order, [facility], Blood?? Medications The list [...] tab(s) Oral Twice a day Ordering Physician: Kumar Chavez MD Unchanged empagliflozin (Jardiance 10 mg oral [...] As needed for as needed for ED Test Performed Below is a partial list of the tests performed during your Visit. You may have had other tests and procedures not included in this list. Please discuss all test results with your provider. Creatinine?-- Results Pending -- Medications and Immunizations Administered Medications Given During [...] are strongly encouraged to quit. Please call [facility] at [phone] or [phone] ([phone]) or log in to [email or web address] for referrals to smoking cessation programs. ?? The National Suicide Prevention Hotline is available 11/09 if you or someone you know needs to find a reason to keep living. By calling 1-086-767-ThoughtBuzz (7652) you'll be connected to a skilled, trained counselor at a crisis center in your area. [facility] Portal You can view and manage your care through the patient portal or by using a health care vane of your choosing. [employer] is a website that allows you to securely view your medical information including your hospital discharge summary, office visit summaries, medications and follow-up visits. You can also request appointments, renew medications, and request access to your medical information using a health care vane of your choosing, or just ask a question. You can enroll at [email or web address] or register during your next office visit. [facility], in keeping with [facility] guidance, no longer requires face masks for [...] primary care provider, you may find a [facility] provider by calling [facility] at [phone]. Patient Care team information Care Team Personnel Name: Kiko Coats MD Position: Reference Physician Member Role: PCP Address: [address] [place] [address] Kiko Coats MD [place], [place] [address] Telecom: [phone] Name: Jennifer Grullon RN Position: S RN Member Role: Primary Care Nurse Name: Ina Solano RN Position: [facility] RN Member Role: Primary Care Nurse Name: Valerio Zaman RN Position: S RN Member Role: Primary Care Nurse Name: Charity Michaels RN Position: S RN Member Role: Primary Care Nurse Name: Cora Mathews RN Position: S RN Member Role: Primary Care Nurse Name: Vilma Alcantara RN Position: S RN Member Role: Primary Care Nurse Name: Natalia Nash RN Position: [facility] RN Member Role: Primary Care Nurse Name: Mer Owens RN Position: S RN Member Role: Primary Care Nurse Care Team Related Persons Name: DREWBOBOHAILEFRANCOIS Insurance Providers Guarantor name: QUENTIN DENNY Health Plan Information #: 1 Payer: MEDICARE B Payer Identifier: NA Member Number: [id number] Group Number: Subscriber Identifier: [id number] Relationship to Subscriber: self Coverage Type: NA Coverage Verification Date: NA Telecom: NA Address: Health Plan Information #: 2 Payer: [employer] NON HMO PLANS Payer Identifier: NA Member Number: [id number] Group Number: Subscriber Identifier: [id number] Relationship to Subscriber: self Coverage Type: Managed Care (Private) Coverage Verification Date: NA Telecom: NA Address:
--- NOTE | 2025-01-14 11:28 | MHC.OFFVIS ---
Vital Signs 01/14/25 11:33 Height 5 ft 10 in Weight 156 lb BMI 22.4 Intake Visit Reasons: pain in surgery site Intake Note: Patient presents for pain, surgical site. Pt c/o; pain, denies fever, chills, nausea or vomiting. Health Promotion Officer Required: No Accompanied by: Self / Same As Patient Allergies No Known Allergies Allergy (Verified 01/14/25 11:48) HPI HPI pain in surgery site: Details: He had undergone laparoscopic cholecystectomy last January 07, 2025 as an outpatient. He says that he is continues to have this abdominal pain, mostly in the periumbilical area. He also has had poor oral intake. He denies any vomiting. He denies any fever. He says that his pain seemed to be similar as to before his surgery. [facility] Medical History (Updated 01/14/25 @ 11:45 by Zohaib Mosher MD) Postoperative pain HLD (hyperlipidemia) HTN (hypertension) Diabetes Carotid stenosis AAA (abdominal aortic aneurysm) Gallstones COPD (chronic obstructive pulmonary disease) Pulmonary emphysema Surgical History H/O prostatectomy H/O arterial bypass of lower limb History of left-sided carotid endarterectomy History of cholecystectomy History of bilateral knee replacement H/O bilateral cataract extraction History of AAA (abdominal aortic aneurysm) repair Social History Patient Tobacco Use Status: Former Tobacco user Tobacco use type: Cigarette Smoked in Last 30 Days: No Use of substances other than those prescribed or required for medical reasons: No Advance Directives: No Advance Directives Information Provided: Yes Do you have a plan to hurt others: No Plan Review of Systems Const Denies chills and Denies fever(s) GI Denies diarrhea and Denies vomiting Denies difficulty urinating Physical Exam Vital Signs: BMI result Body Mass Index 22.4 Const Other: Ambulating, complains of pain General: no acute distress Resp Effort & Inspection: normal respiratory effort GI Other: Seems to be tender around the mid abdomen, periumbilical area Palpation (GI): Soft to palpation, not firm and no guarding Assessment & Plan Assessment & Plan (1) Postoperative pain: Code(s): G89.18 - Other acute postprocedural pain Category: Medical Plan: He had undergone laparoscopic cholecystectomy as an outpatient a week ago. He says that he has been having persistent pain and has had poor oral intake. He does not feel well overall. I therefore brought him down to the emergency room to have a CAT scan done. I discussed this case with the ER staff. The rest of his care will depend on the CAT scan results. His was with him during the visit. Coding Level of Care Code Est Pt Level 3 (55211) Diagnoses Postoperative pain G89.18
[2025-01-14 11:33] VITALS: BMI 22.4
--- OUTSIDE RECORDS SUMMARY | 2025-01-14 14:25 | XMS_ITS | Encounter Summary ---
Author Organization [facility] Address [address] [facility] [address] [place] [address] Phone Care Team Providers Care Rubber Compounder Name Role Phone Lindy Buckner MD Primary Care Provider Encounter Details Date Type Department Care Team (Late st Contact Info) Description 03/02/2023 Procedure Pass [facility] Endoscopy Admitting Dept Virtual Department [address] [place] [address] Social History Tobacco Use Types Packs/Day Years [...] on filedocumented in this encounter Care Teams Rubber Compounder Relationship Specialty Start Date End Date Lindy Buckner MD [address] [place] [address] PCP - General Internal Medicine 06/09/22 documented as of this encounter Additional Source Comments The information contained in this document represents components of the legal health record. It is not the complete legal health record.[facility]
--- OUTSIDE RECORDS SUMMARY | 2025-01-14 14:25 | XMS_ITS | Encounter Summary ---
Author Organization [facility] Address [address] [facility] [address] [place] [phone] Phone Care Team Providers Care Toll Gate Tender Name Role Phone Lindy Buckner MD Primary Care Provider Encounter Details Date Type Department Care Team (Late st Contact Info) Description 04/13/2023 Procedure Pass [facility] Endoscopy Admitting Dept Virtual Department [address] [place] [address] Social History Tobacco Use Types Packs/Day Years [...] on filedocumented in this encounter Care Teams Toll Gate Tender Relationship Specialty Start Date End Date Lindy Buckner MD [address] [place] [address] PCP - General Internal Medicine 06/09/22 documented as of this encounter Additional Source Comments The information contained in this document represents components of the legal health record. It is not the complete legal health record.[facility]
--- OUTSIDE RECORDS SUMMARY | 2025-01-14 14:25 | XMS_ITS | Encounter Summary ---
Author Organization [facility] Address [address] [facility] [place] [address] Phone Care Team Providers Care Customs Compliance Specialist Name Role Phone Lindy Buckner MD Primary Care Provider Encounter Details Date Type Department Care Team (Late st Contact Info) Description 06/09/2022 Procedure Pass [facility] Endoscopy Admitting Dept Virtual Department [address] [place] [phone] Social History Tobacco Use Types Packs/Day Years [...] on filedocumented in this encounter Care Teams Customs Compliance Specialist Relationship Specialty Start Date End Date Lindy Buckner MD [address] [place] [address] PCP - General Internal Medicine 06/09/22 documented as of this encounter Additional Source Comments The information contained in this document represents components of the legal health record. It is not the complete legal health record.[facility]
--- OUTSIDE RECORDS SUMMARY | 2025-01-14 14:25 | XMS_ITS | Encounter Summary ---
Author Organization [facility] Address [address] [facility] [address] [place] [address] Phone Care Team Providers Care Monotype Setter Name Role Phone Lindy Buckner MD Primary Care Provider Encounter Details Date Type Department Care Team (Late st Contact Info) Description 08/10/2022 Procedure Pass [facility] Endoscopy Admitting Dept Virtual Department [address] [place] [address] Social History Tobacco Use Types Packs/Day Years [...] on filedocumented in this encounter Care Teams Monotype Setter Relationship Specialty Start Date End Date Lindy Buckner MD [address] [place] [address] PCP - General Internal Medicine 06/09/22 documented as of this encounter Additional Source Comments The information contained in this document represents components of the legal health record. It is not the complete legal health record.[facility]
--- OUTSIDE RECORDS SUMMARY | 2025-01-14 14:25 | XMS_ITS | Clinical Summary ---
Author Organization [facility] Address [address] [facility] [address] [place] [address] Phone Care Team Providers Care Burr Bench Hand Name Role Phone Lindy Buckner MD [...] this topic Medical Devices Implanted Type Area Floral Design Teacher Device Identifier Shelf Expiration Date Model / Serial / Lot Left Knee Procedures Procedure Name Priority Date/Time Associated Diagnosis Comments COLONOSCOPY FOR RESULT ENTRY ONLY Routine 05/11/2023 from Last 3 Months or Most Recently Relevant to Health Maintenance Results * COLONOSCOPY FOR RESULT ENTRY ONLY (05/11/2023) Colonoscopy External us Historical Provider MD HEALTH MAINTENANCE Final Result from Last 3 Months or Most Recently Relevant to Health Maintenance Insurance [facility] Care Teams Burr Bench Hand Relationship Specialty Start Date End Date Lindy Buckner MD [address] [place] [address] PCP - General Internal Medicine 06/09/22 Additional Source Comments The information contained in this document represents components of the legal health record. It is not the complete legal health record.[facility]
== END 2025-01-14 11:46 | disposition home or self-care (01) ==
LOC: HO.HGS 11:28
PROVIDERS: PCP Internal Medicine; Visit Provider Surgery
DX: G89.18 Other acute postprocedural pain (principal)
CPT/HCPCS: 99024

== ENCOUNTER 2025-01-14 11:39 | Inpatient (IN) | payer MEDICARE, OTHER, SELFPAY ==
[2025-01-14] VITALS (14 sets, daily range): BP systolic 122–178; BP diastolic 60–87; PULSE 77–105; RESP 8–20; TEMP 36.2–36.8; O2SAT 92–100; BMI 22.3
--- NOTE | ~2025-01-14 | CT_ITS ---
PROCEDURE: CT-GUIDED DRAINAGE, PERITONEAL ABSCESS CLINICAL INFORMATION: FLUID COLLECTION GB FOSSA COMPARISON: Previous CT of the abdomen and pelvis most recent from earlier the same day TECHNIQUE: Procedure risks and benefits including bleeding, infection and injury to the liver were discussed with the patient and informed consent was obtained. The patient was positioned in the supine position. Limited axial images through the upper abdomen were performed. The right upper quadrant was prepped and draped in the usual sterile fashion. Skin and soft tissues were anesthetized with 1% lidocaine plain. Using CT guidance and a 22-gauge Chiba needle, access to the fluid collection in the gallbladder fossa was obtained. Clear dark bilious fluid was aspirated. Over an 018 wire, a 6 Turkmen pigtail drainage catheter was positioned in the collection. 10 to 15 mL of clear dark bilious fluid was aspirated. Specimen was sent for Gram stain and culture. The patient received Versed 0.5 mg and fentanyl 25 mcg micrograms intravenously during the procedure. Conscious sedation was provided by registered nurse under my direct supervision with continuous hemodynamic monitoring. Total sedation time was [address] examination was performed using dose optimization techniques as appropriate, variously including the following: *Automated exposure control *Adjustment of mA and/or kV according to patient size (this includes techniques or standardized protocols for targeted exams where dose is matched to indication/reason for exam; i.e. extremities or head) *Use of iterative reconstruction technique DLP 3 1 1 mgy/cm FINDINGS: There is a 4 x 4 cm fluid collection in the gallbladder fossa containing a small amount of air that was targeted for aspiration/drainage. Images demonstrate position of pigtail drainage catheter in the collection. No residual collection post aspiration is seen. CT/CT drain peritoneum IMPRESSION: Right upper quadrant/gallbladder fossa collection drainage. Electronically signed by: Danielle Valentine MD 01/16/2025 08:59 AM [facility]
--- NOTE | ~2025-01-14 | CT_ITS ---
EXAMINATION: CT ABDOMEN AND PELVIS WITH CONTRAST CLINICAL INFORMATION: Postoperative pain after laparoscopic cholecystectomy. COMPARISON: CT abdomen and pelvis 07/25/2024 from [facility]. TECHNIQUE: Multidetector volumetric images were obtained from the superior aspect of the liver through the pubic symphysis following administration 85 mL of Omnipaque 350 intravenous contrast. Sagittal and coronal reformatted images were obtained on the technologist's workstation. Oral contrast: No This CT examination was performed using dose optimization techniques as appropriate, variously including the following: *Automated exposure control *Adjustment of mA and/or kV according to patient size (this includes techniques or standardized protocols for targeted exams where dose is matched to indication/reason for exam; i.e. extremities or head) *Use of iterative reconstruction technique FINDINGS: LUNG BASES: Lung bases are clear. There are centrilobular and paraseptal emphysematous changes present. Small type I hiatus hernia present. Heart size normal. No pericardial or pleural effusion present. LIVER, GALLBLADDER, AND BILIARY TREE: The liver is normal in size, shape, and attenuation. No focal suspicious hepatic lesion or biliary ductal dilatation is present. In segment 2 there is a 1.3 cm hemangioma with peripheral nodular discontinuous enhancement. The gallbladder is surgically absent from recent cholecystectomy. In the gallbladder fossa, there is a fluid collection with thin peripheral enhancement and small bubbles of internal gas measuring approximately 4.0 x 4.2 x 3.9 cm. This is suspicious for a biloma versus abscess. A small amount of fluid tracks into the most anterior gallbladder fossa. PANCREAS: Unremarkable. SPLEEN: Unremarkable. ADRENAL GLANDS: Unremarkable. KIDNEYS AND URETERS: The kidneys are normal in size, shape, and attenuation. No hydronephrosis, hydroureter, or calculi seen. No perinephric stranding. BLADDER: Unremarkable. GASTROINTESTINAL TRACT: Small type I hiatus hernia. The stomach is somewhat decompressed. Duodenum appears normal. The small bowel is normal in caliber and course without inflammation. Normal appendix visualized. The colon is normal in course and caliber without wall thickening or abnormal enhancement. There is moderate sigmoid diverticulosis. The rectum appears normal. ABDOMINAL WALL: There are small fat-containing inguinal hernias bilaterally. There is a femoral-femoral bypass graft in place. LYMPH NODES: No abnormal lymphadenopathy is present. VASCULAR: Severe atheromatous disease of the distal thoracic aorta present with soft and calcific plaque and plaque ulcerations. There is a fusiform abdominal aortic aneurysm with an internal stent graft present, with the aneurysm sac measuring 4.8 x 4.6 cm in axial plane, and spanning a craniocaudal length of 8.7 cm. There is an associated left iliac limb, but no definite right iliac limb is present. There is heavy atherosclerotic calcification of the iliac arteries. There is a femorofemoral bypass graft in place. PELVIC VISCERA: There has been a prostatectomy. There are numerous surgical clips in the region of the seminal vesicles. OSSEOUS STRUCTURES: There is no suspicious lytic or blastic bone lesion evident. Mild spinal degenerative changes are present, CT/CT abdomen pelvis w IV con IMPRESSION: 1. Cholecystectomy. In the gallbladder fossa, there is a fluid collection measuring 4.0 x 4.2 x 3.9 cm, either representing an abscess or a biloma. 2. No additional acute findings in the abdomen or pelvis. 3. There is sigmoid diverticulosis. 4. There has been a prostatectomy. 5. There is advanced atherosclerotic vascular disease as discussed, with a treated infrarenal aortic aneurysm. Aneurysm sac is stable since 07/25/2024. 6. Additional Ancillary findings as discussed in the body of the report. Above findings discussed with Dr. Zohaib Mosher at 1:55 PM, 01/14/2025, with content of findings understood. Electronically signed by: Fito Olivares MD 01/14/2025 02:06 PM [facility]
--- NOTE | 2025-01-14 11:40 | ED.ABDPAIN ---
HPI - Abdominal Pain General Chief Complaint: Abdominal Pain Stated Complaint: sent for CT scan Time Seen by Provider: 01/14/25 11:52 Source: patient and RN notes reviewed Mode of arrival: ambulatory Limitations: no limitations History of Present Illness ED Provider: Marlena Brady PA-C HPI narrative: This is a 74-year-old male, with a past medical history of COPD, diabetes, hypertension, hyperlipidemia, who presents emergency department with concerns of worsening abdominal pain. Patient had a recent laparoscopic cholecystectomy performed by Dr. Mosher on January 07. Patient reports that he had persistent, constant periumbilical abdominal pain that started prior to the surgery, and has not improved despite cholecystectomy. Patient reports pain is constant, however waxes and wanes in severity. Also endorsing mild intermittent nausea. Reports that he had 3 bowel movements this morning, no bloody stool. He states that he currently is on iron, and chronically has dark stool. Denies any fevers, chills, chest pain or shortness for breath. He states that over the last several months his oral intake has been very poor due to the pain he has been experiencing. He states that he has been taking Gas-X, stool softeners and iron supplements postoperatively without any resolution of pain. He was seen by Dr. Mosher outpatient and was told to report to the emergency room for further evaluation. No urinary symptoms. No other complaints or concerns at this time. MD elicited complaint: abdominal pain Pain Consistency: constant Location: periumbilical Quality: cramping and aching Migration to: no migration Exacerbating factors: nothing Relieving factors: nothing Associated symptoms: nausea Related Data Home Medications ?Medication ?Instructions ?Recorded ?Confirmed aspirin 81 mg tablet,delayed 81 mg PO DAILY 06/17/20 01/14/25 release atorvastatin 40 mg tablet 40 mg PO BEDTIME 06/17/20 01/14/25 multivitamin (Daily Multi-Vitamin 1 tab PO DAILY 06/17/20 01/14/25 tablet) carvedilol 25 mg tablet 25 mg PO BID 10/15/24 01/14/25 empagliflozin 10 mg tablet 10 mg PO DAILY 10/15/24 01/14/25 (Jardiance) famotidine 40 mg tablet 40 mg PO DAILY 10/15/24 01/14/25 amlodipine 5 mg tablet 5 mg PO DAILY 01/14/25 01/14/25 ipratropium 0.5 mg-albuterol 3 mg 3 ml inhalation Q4-6H PRN 01/14/25 01/14/25 (2.5 mg base)/3 mL nebulization Shortness Of Breath Or Wheezing soln ketoconazole 2 % topical cream 1 appl topical DAILY PRN Rash 01/14/25 01/14/25 levalbuterol tartrate 45 2 puff inhalation Q4-6H PRN 01/14/25 01/14/25 mcg/actuation aerosol inhaler Shortness Of Breath Or Wheezing pantoprazole 40 mg tablet,delayed 40 mg PO BID@0630,1630 01/14/25 01/14/25 release Previous Rx's ?Medication ?Instructions ?Recorded ibuprofen 600 mg tablet 600 mg PO Q6H PRN pain #20 tabs 01/07/25 Allergies Allergy/AdvReac Type Severity Reaction Status Date / Time No Known Allergies Allergy Verified 01/14/25 11:48 Review of Systems Review of Systems Constitutional : No Fever, No Chills ENT/Mouth : No sore throat, No Rhinorrhea Eyes: No Eye Pain, No Swelling, No Redness Cardiovascular : No Chest Pain, No SOB Respiratory : No Cough, No Sputum Gastrointestinal : + Nausea, No Vomiting, No Diarrhea, + abdominal Pain Genitourinary : No Dysuria, No Hematuria Musculoskeletal : No joint pain, No Myalgias, No Joint Swelling Skin : No Skin Lesions Neuro : No Weakness, No Numbness, No Headache All other systems reviewed and are negative Yes all other systems are reviewed and are negative Constitutional: Reports as per [facility] Past Medical History Attestation statement: The following information was validated with the patient. Medical History (Updated 01/14/25 @ 16:28 by Lakshmi De La Cruz RN) Postoperative pain HLD (hyperlipidemia) HTN (hypertension) Diabetes Carotid stenosis AAA (abdominal aortic aneurysm) Gallstones COPD (chronic obstructive pulmonary disease) Pulmonary emphysema Surgical History (Updated 01/14/25 @ 14:28 by IRWIN Ibraihm) History of laparoscopic cholecystectomy (~01/07/25) H/O prostatectomy H/O arterial bypass of lower limb History of left-sided carotid endarterectomy History of cholecystectomy History of bilateral knee replacement H/O bilateral cataract extraction History of AAA (abdominal aortic aneurysm) repair Social History Social History Household Members: Spouse Housing: House Do you presently have visiting nurse or other home services: No Patient Tobacco Use Status: Former Tobacco user Tobacco use type: Cigarette service: Yes Physical Exam ED Vital Signs: Vital Signs - 24 hr 01/14/25 11:43 01/14/25 12:14 01/14/25 13:00 Temperature 97.6 F 98.2 F Pulse Rate 105 H 97 88 Respiratory Rate 16 18 12 Blood Pressure 178/80 H 154/74 H 141/73 H Pulse Oximetry 97 99 98 Oxygen Delivery Method Room Air Room Air Room Air BMI result Body Mass Index 22.3 Const General: cooperative, comfortable and no acute distress Orientation/consciousness: patient oriented x3 Limitations: no limitations HENMT Head: Yes normal to inspection, Yes normocephalic and Yes atraumatic Ears: hearing grossly normal bilaterally General nose exam: Normal external nose present Face and sinus: Yes normal facial exam Mouth: Normal oral and palatal mucosa present, oropharynx normal and moist mucous membranes Throat: Yes posterior oropharynx normal Eyes General: appearance normal, both eyes and all related structures Eyelids: Yes eyelids normal Conjunctivae: conjunctivae normal Sclerae: sclerae normal Pupils: Equal, round and reactive pupils present EOM: EOMs intact bilaterally Neck Neck: Yes normal visual inspection, Yes full ROM and Yes no lymphadenopathy Lymphatic: no lymphadenopathy noted Chest Chest palpation & inspection: normal inspection of the chest Resp Effort & Inspection: normal respiratory effort and able to speak in complete sentences Auscultation: clear to auscultation bilaterally, no crackles, no rales, no rhonchi and no wheezes Cardio Rate: regular rate Rhythm: regular rhythm Heart sounds: S1 normal heart sound present and S2 normal heart sound present GI Other: Abd is soft, with healing surgical incision site in the epigastrium and periumbilical region, healing ecchymosis. Mild tenderness throughout, more pronounced in the periumbilical region. No rebound. Inspection: Yes normal to inspection Skin General skin exam: no rashes or lesions noted Trauma: no lacerations or abrasions Wounds: no wounds Neuro General: patient oriented x3 and moves all extremities Cranial nerves: Yes Equal, round and reactive pupils present Extrem General: Yes normal to inspection Right upper extremity: normal to inspection Left upper extremity: normal to inspection Right lower extremity: normal to inspection Left lower extremity: normal to inspection Course Course Course Narrative: This is a Rapid Medical Exam performed in triage by Ginny Lyons PA-C. Full HPI, ROS and PE to be performed by primary ED provider. 74-year-old male with a past medical history EGD, HTN, diabetes, AAA, gallstones, COPD s/p Laparoscopic cholecystectomy by Dr. Mosher on 01/07/25 presenting to the ED c/o periumbilical abdominal pain since surgery. +constipated & nausea. denies fever, vomiting PE: abdomen soft w/diffuse ttp, no rebound or guarding Plan: labs, UA, CT Medical Decision Making Medical Decision Making [facility] Narrative: This is a 74-year-old male, with a past medical history of COPD, diabetes, hypertension, hyperlipidemia, who presents emergency department with concerns of worsening abdominal pain. On arrival, patient hypertensive at 178/80, pulse 105, he is afebrile. Patient appears to be uncomfortable secondary to pain. Differential diagnoses include post operative complication including abscess, gastritis, gastroenteritis, SBO. Will obtain labs, UA, CT abdomen and pelvis with IV contrast. Will medicate patient with IV Tylenol, and IV morphine. 1:41 PM 01/14/2025 (Marlena Brady PA-C): Patient with leukocytosis at 15.4, he has a normocytic anemia with an H&H of 12.5/37.6, chemistry revealing no significant electrolyte derangement. He does have a lactic acidosis at 2.4. He is currently receiving IV fluids, IV ceftriaxone and Flagyl. Patient re-evaluated, pain has not improved despite IV Tylenol and IV morphine. Will medicate with Dilaudid [address] scan results CT scan results revealing a fluid collection measuring 4 x 4.2 x 3.9, either representing an abscess or biloma. This was discussed with Dr. Mosher, who will admit to surgical service. Transfer of care initiated. Differential Diagnosis Differential Diagnoses: The differential diagnosis associated with the presentation includes See above Admission/Observation Consideration of admission/observation: Escalation of care including admission/observation considered Lab Data [facility] Lab Attestation statement: I reviewed the patient's lab results. See [facility] 01/15/25 14:28 01/15/25 09:10 Labs: Lab Results 01/14/25 Range/Units 12:02 WBC 15.4 H (4.8-10.8) X10*3/uL RBC 4.39 L (4.60-5.80) X10*6/uL Hgb 12.5 L (14.0-18.0) g/dl Hct 37.6 L (42.0-52.0) % MCV 85.6 (80.0-98.0) fL MCH 28.5 (27.0-33.0) pg MCHC 33.2 (31.0-36.0) g/dl RDW 14.6 (11.0-16.0) % Plt Count 372 D (160-400) X10*3/uL MPV 10.8 (9.4-12.4) fL Immature Gran % (Auto) 2.1 H (0.0-0.4) % Neut % (Auto) 69.3 (45-73) % Lymph % (Auto) 15.9 L (20-40) % Metcalfe % (Auto) 9.0 (2-11) % Eos % (Auto) 2.8 (0-4) % Baso % (Auto) 0.9 (0-2) % Lymph # (Auto) 2.5 (1.2-4.9) X10*3/uL Metcalfe # (Auto) 1.4 H (0.1-1.2) X10*3/uL Eos # (Auto) 0.4 (0.0-0.4) X10*3/uL Baso # (Auto) 0.1 (0.0-0.2) X10*3/uL Abs Immat Gran (auto) 0.32 H (0.00-0.03) X10*3/uL Absolute Neuts (auto) 10.7 H (2.0-8.3) x10*3/uL Absolute Nucleated RBC 0.000 (0.0-0.012) X10*3/uL Nucleated RBC % (auto) 0.0 (0.0-0.2) /100WBC Sodium 137 (135-145) mmol/L Potassium 4.0 (3.3-5.1) mmol/L Chloride 102 (96-108) mmol/L Carbon Dioxide 22 (22-29) mmol/L Anion Gap 17 (12-20) BUN 13 (9-16) mg/dL Creatinine 1.12 (0.5-1.4) mg/dL Estim Creat Clear Calc 55.9 Estimated GFR > 60 Random Glucose 144 H (60-115) mg/dL Lactic Acid 2.4 H* (0.5-2.0) mmol/L Calcium 9.8 (8.4-10.2) mg/dL Magnesium 2.1 (1.6-2.6) mg/dL Total Bilirubin 0.5 (0.0-1.0) mg/dL Direct Bilirubin 0.2 (0.0-0.5) mg/dL AST 30 (5-37) U/L ALT 29 (0-40) U/L Alkaline Phosphatase 113 (39-117) U/L Total Protein 7.5 (6.5-8.0) g/dL Albumin 4.3 (3.5-5.0) g/dL Lipase 50 (8-78) U/L Radiology Impression Discussion of test interpretation with radiology: I have reviewed the radiologist's reading. Radiologist Impression: CT/CT abdomen pelvis w IV con IMPRESSION: 1. Cholecystectomy. In the gallbladder fossa, there is a fluid collection measuring 4.0 x 4.2 x 3.9 cm, either representing an abscess or a biloma. 2. No additional acute findings in the abdomen or pelvis. 3. There is sigmoid diverticulosis. 4. There has been a prostatectomy. 5. There is advanced atherosclerotic vascular disease as discussed, with a treated infrarenal aortic aneurysm. Aneurysm sac is stable since 07/25/2024. 6. Additional Ancillary findings as discussed in the body of the report. Above findings discussed with Dr. Zohaib Mosher at 1:55 PM, 01/14/2025, with content of findings understood. Electronically signed by: Fito Olivares MD 01/14/2025 02:06 PM [facility] [place] By: Fito Olivares MD Medications Administered Generic Name Dose Route Start Last Admin Trade Name Freq PRN Reason Stop Dose Admin Amlodipine Besylate 5 mg 01/15/25 09:00 01/15/25 08:48 Amlodipine Besylate 5 Mg Tablet PO 5 mg DAILY SHELBY Administration Protocol Carvedilol 25 mg 01/14/25 21:00 01/15/25 08:48 Carvedilol 25 Mg Tablet PO 25 mg BID SHELBY Administration Protocol Heparin Sodium (Porcine) 5,000 unit 01/14/25 15:00 01/15/25 14:18 Heparin Sodium,Porcine 5,000 Unit/Ml Vial SUBCUT 5,000 unit Q8H SHELBY Administration Piperacillin Sod/Tazobactam 50 mls @ 100 mls/hr 01/14/25 15:00 01/15/25 14:59 Sod 3.375 gm/ Sodium Chloride IV Infused Q6H SHELBY Infusion Lactated Ringer's 1,000 mls @ 100 mls/hr 01/14/25 14:15 01/15/25 06:09 Lr IVCONT 100 mls/hr .Q10H SHELBY Administration Morphine Sulfate 2 mg 01/14/25 14:06 01/14/25 21:56 Morphine Sulfate 4 Mg/Ml Cartridge IVPUSH 2 mg Q3H PRN Administration Pain, Severe (Pain Scale 7-10) Protocol Omeprazole 20 mg 01/14/25 16:30 01/15/25 16:05 Omeprazole 20 Mg Capsule.Dr PO 20 mg BID@0630,1630 SHELBY Administration Sodium Chloride 3 ml 01/14/25 16:00 01/15/25 14:24 0.9 % Sodium Chloride Flush 3 Ml Syringe IVFLUSH 3 ml QSHIFT SHELBY Administration Discontinued Medications Generic Name Dose Route Start Last Admin Trade Name Freq PRN Reason Stop Dose Admin Fentanyl 25 mcg 01/14/25 16:44 01/14/25 16:42 Fentanyl Citrate/Pf 100 Mcg/2 Ml Vial IVPUSH 01/14/25 16:45 25 mcg ONCE ONE Administration Protocol Hydromorphone HCl 1 mg 01/14/25 13:35 01/14/25 13:44 Hydromorphone Hcl 1 Mg/Ml Syringe IVPUSH 01/14/25 13:36 1 mg ONCE ONE Administration Protocol Sodium Chloride 1,000 mls @ 999 mls/hr 01/14/25 12:35 01/14/25 14:59 Ns IV 01/14/25 13:35 Infused .Q1H1M ONE Infusion Ceftriaxone Sodium 1 gm/ 50 mls @ 100 mls/hr 01/14/25 12:34 01/14/25 13:17 Sodium Chloride IV 01/14/25 13:03 Infused ONCE ONE Infusion Metronidazole 500 mg in 100 mls @ 100 mls/hr 01/14/25 12:34 01/14/25 14:59 Flagyl IV 01/14/25 13:33 Infused ONCE ONE Infusion Acetaminophen 1,000 mg in 100 mls @ 400 mls/hr 01/14/25 12:36 01/14/25 12:56 Ofirmev IV 01/14/25 12:50 Infused ONCE ONE Infusion Iohexol 100 ml 01/14/25 13:09 01/14/25 13:10 Iohexol 350 Mg/Ml 100 Ml Infus..Btl IV 01/14/25 13:10 85 ml ONCE ONE Administration Midazolam HCl 0.5 mg 01/14/25 16:37 01/14/25 16:42 Midazolam Hcl 2 Mg/2 Ml Vial IVPUSH 01/14/25 16:38 0.5 mg ONCE ONE Administration Morphine Sulfate 4 mg 01/14/25 12:36 01/14/25 12:41 Morphine Sulfate 4 Mg/Ml Cartridge IVPUSH 01/14/25 12:37 4 mg ONCE ONE Administration Protocol Critical Care Time Critical Care Time Critical Care Time: Yes Total Critical Care Time: 35 Attestation: I have personally provided critical care time exclusive of time spent on separately billable procedures. Time includes review of lab data, radiology results, discussion with consultants, and monitoring for potential decompensation. Intervention performed as documented. Discharge Plan Discharge Clinical Impression: Postoperative pain Patient Disposition: Admitted As Inpatient Interventions: Admission Worksheet (ED) Last Done: 01/14/25 14:55 Discharge Date/Time: 01/14/25 16:28
[2025-01-14 12:10] LABS: Hematocrit 37.6 % (42.0-52.0); Hemoglobin 12.5 g/dl (14.0-18.0); Imm Gran Abs Auto 0.32 X10*3/uL (0.00-0.03); Imm Gran Pct Auto 2.1 % (0.0-0.4); Lymphocytes Absolute Auto 2.5 X10*3/uL (1.2-4.9); MANUAL DIFF FLAG NO; Mean Corpuscular HGB Conc 33.2 g/dl (31.0-36.0); Mean Corpuscular Hemoglobin 28.5 pg (27.0-33.0); Mean Corpuscular Volume 85.6 fL (80.0-98.0); NRBC Abs Auto 0.000 X10*3/uL (0.0-0.012); NRBC Pct Auto 0.0 /100WBC (0.0-0.2); Platelet Count 372 X10*3/uL (160-400); Red Blood Count 4.39 X10*6/uL (4.60-5.80); White Blood Count 15.4 X10*3/uL (4.8-10.8)
[2025-01-14 12:28] LABS: Alanine Aminotransferase 29 U/L (0-40); Albumin Level 4.3 g/dL (3.5-5.0); Alkaline Phosphatase 113 U/L (39-117); Anion Gap 17 (12-20); Aspartate Amino Transferase 30 U/L (5-37); Blood Urea Nitrogen 13 mg/dL (9-16); Calcium 9.8 mg/dL (8.4-10.2); Carbon Dioxide 22 mmol/L (22-29); Chloride 102 mmol/L (96-108); Creatinine Clr Calc Pharmacy 55.9; Estimated Glomerular Filt Rate > 60; Lipase 50 U/L (8-78); Magnesium 2.1 mg/dL (1.6-2.6); Potassium 4.0 mmol/L (3.3-5.1); Sodium 137 mmol/L (135-145); Total Protein 7.5 g/dL (6.5-8.0)
[2025-01-14] MEDS: iohexoL 350 MG/ML 100 ML INFUS..BTL IV (13:10)
--- NOTE | 2025-01-14 13:15 | PC.NURSE ---
pt found to be out of bed unclothed/confused/restless/incontinent of stool and urine. large amount of stool noted on body/bed/floor. pt cleaned. new hospital attire applied. pt assisted back into bed. chair alarm now in place for safety precautions. IV abx continues to infuse at this time. plan of care ongoing. call ashley placed within reach.
[2025-01-14] MEDS: metroNIDAZOLE/NS 500 MG/100 ML PIGGYBACK 100 MG IV (13:26)
--- NOTE | 2025-01-14 13:31 | PM.HPGS ---
History of Present Illness History of Present Illness Date of Service: 01/14/25 Chief complaint: postop fluid collection Narrative: Mikal Elizondo is a 74 year old male who had undergone laparoscopic cholecystectomy last January 07, 2025 as an outpatient for symptomatic gallstones. He was discharged on the same day. However, he says that he continues to have vague abdominal pain which he says is similar to what he has had before surgery. His says that there are days that he would seem to be better and there were days that he seems to have significant pain. I saw him in the office this morning and brought him to the ER to have a CAT scan done. He also says he has had poor appetite and has had poor oral intake for the past few days. He denies any fever or chills. He denies any vomiting. He has a known history of COPD and AAA. His intraop findings actually showed edema of the gallbladder with significant adhesions. His path report showed acute cholecystitis with focal gangrene. Review of Systems Constitutional: Constitutional: Denies chills and Denies fever(s) Cardiovascular: Cardiovascular: Denies chest pain, Denies dyspnea and Denies dyspnea on exertion Respiratory: Respiratory: Denies cough, Denies dyspnea and Denies dyspnea on exertion Gastrointestinal: Gastrointestinal: Reports abdominal pain, Denies hematochezia and Denies change in bowel habits Genitourinary: Genitourinary: Denies hematuria and Denies difficulty urinating Musculoskeletal: Musculoskeletal: Denies back pain and Denies limited range of motion Neurologic: Denies focal weakness and Denies convulsions Psychiatric: Psychiatric: Denies depression and Denies mood swings [facility] Past Medical History Medical History (Updated 01/14/25 @ 16:28 by Lakshmi De La Cruz RN) Postoperative pain HLD (hyperlipidemia) HTN (hypertension) Diabetes Carotid stenosis AAA (abdominal aortic aneurysm) Gallstones COPD (chronic obstructive pulmonary disease) Pulmonary emphysema Surgical History Surgical History (Updated 01/14/25 @ 14:28 by IRWIN Ibrahim) History of laparoscopic cholecystectomy (~01/07/25) H/O prostatectomy H/O arterial bypass of lower limb History of left-sided carotid endarterectomy History of cholecystectomy History of bilateral knee replacement H/O bilateral cataract extraction History of AAA (abdominal aortic aneurysm) repair Social History Social History Household Members: Spouse Housing: House Do you presently have visiting nurse or other home services: No Patient Tobacco Use Status: Former Tobacco user Tobacco use type: Cigarette Meds Allergies Allergy/AdvReac Type Severity Reaction Status Date / Time No Known Allergies Allergy Verified 01/14/25 11:48 Active Medications: Current Medications Sodium Chloride (Ns) 1,000 mls @ 999 mls/hr IV .Q1H1M ONE Stop: 01/14/25 13:35 Last Admin: 01/14/25 12:38 Dose: 999 mls/hr Metronidazole (Flagyl) 500 mg in 100 mls @ 100 mls/hr IV ONCE ONE Stop: 01/14/25 13:33 Last Admin: 01/14/25 13:26 Dose: 100 mls/hr Home Medications ?Medication ?Instructions ?Recorded ?Confirmed ?Last Taken ?Type aspirin 81 mg tablet,delayed 81 mg PO DAILY 06/17/20 01/14/25 01/13/25 History release atorvastatin 40 mg tablet 40 mg PO BEDTIME 06/17/20 01/14/25 01/13/25 History multivitamin (Daily Multi-Vitamin 1 tab PO DAILY 06/17/20 01/14/25 01/13/25 History tablet) carvedilol 25 mg tablet 25 mg PO BID 10/15/24 01/14/25 01/13/25 History empagliflozin 10 mg tablet 10 mg PO DAILY 10/15/24 01/14/25 01/13/25 History (Jardiance) famotidine 40 mg tablet 40 mg PO DAILY 10/15/24 01/14/25 01/13/25 History amlodipine 5 mg tablet 5 mg PO DAILY 01/14/25 01/14/25 01/13/25 History ipratropium 0.5 mg-albuterol 3 mg 3 ml inhalation Q4-6H PRN 01/14/25 01/14/25 Unknown History (2.5 mg base)/3 mL nebulization Shortness Of Breath Or Wheezing soln ketoconazole 2 % topical cream 1 appl topical DAILY PRN Rash 01/14/25 01/14/25 Unknown History levalbuterol tartrate 45 2 puff inhalation Q4-6H PRN 01/14/25 01/14/25 Unknown History mcg/actuation aerosol inhaler Shortness Of Breath Or Wheezing pantoprazole 40 mg tablet,delayed 40 mg PO BID@0630,1630 01/14/25 01/14/25 01/14/25 History release Physical Exam Vital Signs: Vital Signs: Last Vital Signs Temp 98.2 F 01/14/25 12:14 Pulse 88 01/14/25 13:00 Resp 12 01/14/25 13:00 BP 141/73 H 01/14/25 13:00 Pulse Ox 98 01/14/25 13:00 O2 Del Method Room Air 01/14/25 13:00 BMI result Body Mass Index 22.3 Const: Other: Does complain of pain, ambulating General: comfortable and no acute distress Orientation/consciousness: patient oriented x3 Neck: Neck: Yes no lymphadenopathy Resp: Auscultation: clear to auscultation bilaterally Cardio: Rhythm: regular rhythm GI: Other: Vague diffuse mild tenderness Palpation (GI): Soft to palpation, nontender and no guarding Neuro: General: patient oriented x3 Results Results Labs: Short CBC 01/14/25 Range/Units 12:02 WBC 15.4 H (4.8-10.8) X10*3/uL Hgb 12.5 L (14.0-18.0) g/dl Hct 37.6 L (42.0-52.0) % Plt Count 372 D (160-400) X10*3/uL BMP 01/14/25 12:02 Sodium 137 Potassium 4.0 Chloride 102 Carbon Dioxide 22 BUN 13 Creatinine 1.12 Calcium 9.8 Liver Function 01/14/25 Range/Units 12:02 Total Bilirubin 0.5 (0.0-1.0) mg/dL Direct Bilirubin 0.2 (0.0-0.5) mg/dL AST 30 (5-37) U/L ALT 29 (0-40) U/L Alkaline Phosphatase 113 (39-117) U/L Albumin 4.3 (3.5-5.0) g/dL Assessment and Plan (1) Postoperative pain: Status: Acute He had undergone laparoscopic cholecystectomy as an outpatient last January 07, 2025. He had been having persistent vague abdominal pain with poor oral intake past few days. He describes the pain as similar to his pain preoperatively . I have reviewed his CAT scan and this shows a fluid collection in the gallbladder fossa with bubbles of air suggestive of an abscess. This may also represent a bile leak. I will arrange for him to have IR drainage. He will be admitted for IV antibiotics. His lactate was initially high but this is likely secondary to poor oral intake as he does not appear septic. His LFTs are also within normal. I have discussed the case with Radiology and they said that they will able to do the IR drainage on Sunday when staffing would be available. I have discussed the above with the patient and his family. He looks well overall and hemodynamically stable. I have also consulted the hospitalist service in view of this COPD, hypertension, and prediabetic state. Quality Stroke Does the patient have a stroke diagnosis?: No VTE Prior VTE?: No VTE Risk Level:: Medical - moderate - high VTE Device Contraindication: N/A - Device Ordered VTE Drug Contraindication: N/A - Med Ordered Procedures Date of Service Date of Service: 01/14/25
[2025-01-14 14:08] LABS: Reflex Lactate? Lactic Acid Added
--- NOTE | 2025-01-14 14:14 | HO.PM.IMCN ---
History of Present Illness Data of Consult Service Date: 01/14/25 Primary Care Provider: Kiko Coats MD HPI 74 year old man sent to the ED by general surgery. He had a CCY on 01/07. Patient presented with complaints of abdominal pain and found to have gallbladder fossa abscess. Denied fever, chills, nausea, vomiting, diarrhea. Vital signs are stable and plan is for drain of abscess. Review of Systems Review of Systems: Denies any recent fever chills or decrease in appetite respiratory denies any shortness of breath or cough cardiovascular denied chest pain gastrointestinal denies any dysphagia abdominal pain nausea vomiting or diarrhea genitourinary denies any dysuria frequency or hematuria musculoskeletal denies any joint pain or swelling neuropsych denies any weakness or seizures all other systems reviewed are negative [facility] Medical History (Updated 01/14/25 @ 14:26 by Cierra You NP) Postoperative pain HLD (hyperlipidemia) HTN (hypertension) Diabetes Carotid stenosis AAA (abdominal aortic aneurysm) Gallstones COPD (chronic obstructive pulmonary disease) Pulmonary emphysema Surgical History (Updated 01/14/25 @ 14:28 by IRWIN Ibrahim) History of laparoscopic cholecystectomy (~01/07/25) H/O prostatectomy H/O arterial bypass of lower limb History of left-sided carotid endarterectomy History of cholecystectomy History of bilateral knee replacement H/O bilateral cataract extraction History of AAA (abdominal aortic aneurysm) repair Social History Patient Tobacco Use Status: Former Tobacco user Tobacco use type: Cigarette Smoked in Last 30 Days: No Use of substances other than those prescribed or required for medical reasons: No Advance Directives: No Advance Directives Information Provided: Yes Do you have a plan to hurt others: No Plan Meds Allergies Allergy/AdvReac Type Severity Reaction Status Date / Time No Known Allergies Allergy Verified 01/14/25 11:48 Active Medications: Current Medications Acetaminophen (Acetaminophen 325 Mg Tablet) 650 mg PO Q6H PRN PRN Reason: Pain, Mild 1-3,fever,headache Calcium Carbonate (Calcium Carbonate 750 Mg Tab.Chew) 750 mg PO Q4H PRN PRN Reason: Heartburn Carvedilol (Carvedilol 25 Mg Tablet) 25 mg PO BID SHELBY; Protocol Heparin Sodium (Porcine) (Heparin Sodium,Porcine 5,000 Unit/Ml Vial) 5,000 unit SUBCUT Q8H SHELBY Piperacillin Sod/Tazobactam (Sod 3.375 gm/ Sodium Chloride) 50 mls @ 100 mls/hr IV Q6H [facility] Lactated Ringer's (Lr) 1,000 mls @ 100 mls/hr IVCONT .Q10H [facility] Levalbuterol HCl (Levalbuterol Hcl 1.25 Mg/3 Ml Vial.Neb) 1.25 mg INHALE Q4H PRN PRN Reason: Shortness of Breath/Wheezing Magnesium Hydroxide (Milk Of Magnesia 30 Ml Oral.Susp) 30 ml PO DAILY PRN PRN Reason: Constipation Melatonin (Melatonin 3 Mg Tablet) 6 mg PO BEDTIME PRN PRN Reason: Insomnia Morphine Sulfate (Morphine Sulfate 4 Mg/Ml Cartridge) 2 mg IVPUSH Q3H PRN; Protocol PRN Reason: Pain, Severe (Pain Scale 7-10) Omeprazole (Omeprazole 20 Mg Capsule.) 20 mg PO BID@0630,1630 [facility] Oxycodone HCl (Oxycodone Hcl Immed Release 5 Mg Tablet) 5 mg PO Q4H PRN PRN Reason: Pain, Moderate(Pain Scale 4-6) Sodium Chloride (0.9 % Sodium Chloride Flush 3 Ml Syringe) 3 ml IVFLUSH QSHIFT [facility] Home Medications ?Medication ?Instructions ?Recorded ?Confirmed ?Last Taken ?Type aspirin 81 mg tablet,delayed 81 mg PO DAILY 06/17/20 01/14/25 01/13/25 History release atorvastatin 40 mg tablet 40 mg PO BEDTIME 06/17/20 01/14/25 01/13/25 History multivitamin (Daily Multi-Vitamin 1 tab PO DAILY 06/17/20 01/14/25 01/13/25 History tablet) carvedilol 25 mg tablet 25 mg PO BID 10/15/24 01/14/25 01/13/25 History empagliflozin 10 mg tablet 10 mg PO DAILY 10/15/24 01/14/25 01/13/25 History (Jardiance) famotidine 40 mg tablet 40 mg PO DAILY 10/15/24 01/14/25 01/13/25 History amlodipine 5 mg tablet 5 mg PO DAILY 01/14/25 01/14/25 01/13/25 History ipratropium 0.5 mg-albuterol 3 mg 3 ml inhalation Q4-6H PRN 01/14/25 01/14/25 Unknown History (2.5 mg base)/3 mL nebulization Shortness Of Breath Or Wheezing soln ketoconazole 2 % topical cream 1 appl topical DAILY PRN Rash 01/14/25 01/14/25 Unknown History levalbuterol tartrate 45 2 puff inhalation Q4-6H PRN 01/14/25 01/14/25 Unknown History mcg/actuation aerosol inhaler Shortness Of Breath Or Wheezing pantoprazole 40 mg tablet,delayed 40 mg PO BID@0630,1630 01/14/25 01/14/25 01/14/25 History release Physical Exam Vital Signs and Narrative: Vital Signs: Last Vital Signs Temp 98.2 F 01/14/25 12:14 Pulse 88 01/14/25 13:00 Resp 12 01/14/25 13:00 BP 141/73 H 01/14/25 13:00 Pulse Ox 98 01/14/25 13:00 O2 Del Method Room Air 01/14/25 13:00 BMI result Body Mass Index 22.3 Results Labs 01/14/25 12:02 01/14/25 12:02 Labs: Laboratory Results - last 24 hr 01/14/25 12:02 MCV 85.6 MCH 28.5 MCHC 33.2 RDW 14.6 Plt Count 372 D MPV 10.8 Immature Gran % (Auto) 2.1 H Neut % (Auto) 69.3 Lymph % (Auto) 15.9 L [place] % (Auto) 9.0 Eos % (Auto) 2.8 Baso % (Auto) 0.9 Lymph # (Auto) 2.5 [place] # (Auto) 1.4 H Eos # (Auto) 0.4 Baso # (Auto) 0.1 Abs Immat Gran (auto) 0.32 H Absolute Neuts (auto) 10.7 H Absolute Nucleated RBC 0.000 Nucleated RBC % (auto) 0.0 Anion Gap 17 Estim Creat Clear Calc 55.9 Estimated GFR > 60 Random Glucose 144 H Lactic Acid 2.4 H* Calcium 9.8 Magnesium 2.1 Total Bilirubin 0.5 Direct Bilirubin 0.2 AST 30 ALT 29 Alkaline Phosphatase 113 Total Protein 7.5 Albumin 4.3 Lipase 50 Imaging Radiologist's Impressions: Impressions Abdomen/Pelvis CT 01/14/25 13:06 IMPRESSION: 1. Cholecystectomy. In the gallbladder fossa, there is a fluid collection measuring 4.0 x 4.2 x 3.9 cm, either representing an abscess or a biloma. 2. No additional acute findings in the abdomen or pelvis. 3. There is sigmoid diverticulosis. 4. There has been a prostatectomy. 5. There is advanced atherosclerotic vascular disease as discussed, with a treated infrarenal aortic aneurysm. Aneurysm sac is stable since 07/25/2024. 6. Additional Ancillary findings as discussed in the body of the report. Above findings discussed with Dr. Zohaib Mosher at 1:55 PM, 01/14/2025, with content of findings understood. Electronically signed by: Fito Olivares MD 01/14/2025 02:06 PM [facility] Assessment and Plan (1) Gallstones: Status: Acute Plan 74 year old man admitted by general surgery for fluid collection in the gallbladder fossa with bubbles of air suggestive of an abscess. He was sent to the ED by the surgeon. He recently had CCY 01/07/25. Gallbladder fossa abscess management as per surgical team IV zosyn Hypertension continue home medications COPD No exacerbation Albuterol as needed History of carotid stenosis Continue aspirin and statin DVT prophylaxis with heparin Full code
--- NOTE | 2025-01-14 14:19 | PHA.MEDREC ---
Addendum entered by Mian Donald 01/14/25 15:00: Went and physically spoke with pt again and he confirmed he picked up the Rabeprazole 01/09 but never started taking that medication and was still taking the Pantoprazole BID. Addendum entered by Cami Zee RPh 01/14/25 14:42: pt picked up rabeprazole on 01/09 - pt not taking pantoprazole Addendum entered by Cami Zee RP 01/14/25 14:37: reviewed by [facility], following up with [facility] to see if Rabeprazole was picked up and which PPI is most current. Original Note: Pharmacy Consult ? Medication Reconciliation Pharmacy has completed the medication reconciliation. Spoke with pt and he confirmed his medications.
[2025-01-14 14:40] LABS: Appearance Urine Clear; Glucose Urine UA 500 mg/dL (Negative); PH 7.5 (5.0-9.0); Specific Gravity - Urine 1.020 (1.005-1.025)
[2025-01-14 14:57] LABS: ~Lactic Acid-LAB USE ONLY 1.0 mmol/L (0.5-2.0)
[2025-01-14] MEDS: Lactated Ringers 1,000 ML 100 ML IVCONT (15:04)
--- OUTSIDE RECORDS SUMMARY | 2025-01-14 15:10 | XMS_ITS | Data Portability ---
Author Organization [place] [facility] Address [address] [place] [phone] Care Team Providers Care Fiberglass Product Tester Name Role Phone DRUERASMO SHEPPARDN Primary Care Provider [facility] OTHER [phone] Assessment Encounter Date Assessment Date Assessment LastModified [...] ionized [facility], [facility] or [facility] [address] [place], [address], 05:01:37 urinalysis , dipstick 2021 022 [email or web address], [address] [place], [address], 15:29:23 Referral None recorded. Procedures None recorded. Surgeries None recorded. Imaging None recorded. Medication Orders None recorded. Patient TargetsNo targets recorded. Patient Instructions Encounter Date Encounter Id Patient Instructions Last Modified By Organization Details Last Modified Time 12/14/2021 [id number] [facility] came to your home to evaluate [...] , dipst ick Appearance clear Not Available [facility] [address], [place], [address], 12/14/2021 15:12:58 12/15/1912/14/2021 urina lysis , dipst ick Color yellow Not Available [facility] [address] [place], [address], 12/14/2021 15:12:58 12/15/19 22 12/14/2021 urina lysis , dipst ick Glucose (ref: neg Neg Not Available [facility] [address] [place], [address], 12/14/2021 15:12:58 12/15/1912/14/2021 urina lysis , dipst ick Bilirubin (ref: neg) Neg Not Available [facility] [address] [place], [address], 12/14/2021 15:12:58 12/15/1912/14/2021 urina lysis , dipst ick Ketones (ref: neg) Neg Not Available [facility] [address] [place], [address], 12/14/2021 15:12:58 12/15/1912/14/2021 urina lysis , dipst ick Specific [place] (ref: 1.003 - 1.035) 1.020 Not Available [facility] [address] [place], [address], 12/14/2021 15:12:58 12/15/19 22 12/14/2021 urina lysis , dipst ick Blood (ref: neg) Neg Not Available [facility] [address], [place], [address], 12/14/2021 15:12:58 12/15/1912/14/2021 urina lysis , dipst ick pH (ref: 5.0-7.0) 5.0 Not Available [facility] [address] [place], [address], 12/14/2021 15:12:58 12/15/19 22 12/14/2021 urina lysis , dipst ick Protein (ref: neg) Neg Not Available [facility] [address] [place], [address], 12/14/2021 15:12:58 12/15/1912/14/2021 urina lysis , dipst ick Urobilinogen (ref: 0.2-1.0) 0.2 Not Available [facility] [address] [place], [address], 12/14/2021 15:12:58 12/15/1912/14/2021 urina lysis , dipst ick Nitrites (ref: neg) negati ve Not Available [facility] [address] [place], [address], 12/14/2021 15:12:58 12/15/1912/14/2021 urina lysis , dipst ick Leukocytes (ref: neg) Not Available [facility] [address] [place], [address], 12/14/2021 15:12:58 12/15/1912/14/2021 urina lysis , dipst ick Location [facility], [address] [place] [address], [phone] Not Available [facility] [address] [place], [address], 12/14/2021 15:12:58 12/15/19 22 12/14/2021 BMP + IONIZ ED CALCI UM, SERUM OR PLASM A glu 179 mg/dL 70-105 Not Available [facility] [address] [place], [address], 12/14/2021 15:11:21 12/15/19 22 12/14/2021 BMP + IONIZ ED CALCI UM, SERUM OR PLASM A BUN 24 mg/dL 8-26 Not Available [facility] [address] [place], [address], 12/14/2021 15:11:21 12/15/19 22 12/14/2021 BMP + IONIZ ED CALCI UM, SERUM OR PLASM A crea 1.9 mg/dL 0.6-1. 3 Not Available [address], [address], 12/14/2021 15:11:21 12/15/19 22 12/14/2021 BMP + IONIZ ED CALCI UM, SERUM OR PLASM A Na 136 mmol/ L 138-14 6 Not Available [address], [address], 12/14/2021 15:11:21 12/15/19 22 12/14/2021 BMP + IONIZ ED CALCI UM, SERUM OR PLASM A K 4.0 mmol/ L 3.5-4. 9 Not Available [address], [address], 12/14/2021 15:11:21 12/15/19 22 12/14/2021 BMP + IONIZ ED CALCI UM, SERUM OR PLASM A cL 99 mmol/ L 98-109 Not Available [address], [address], 12/14/2021 15:11:21 12/15/19 22 12/14/2021 BMP + IONIZ ED CALCI UM, SERUM OR PLASM A TCO2 24 mmol/ L 24-29 Not Available [address], [address], 12/14/2021 15:11:21 12/15/19 22 12/14/2021 BMP + IONIZ ED CALCI UM, SERUM OR PLASM A angap 18 mmol/ L 10-20 Not Available [address], [address], 12/14/2021 15:11:21 12/15/19 22 12/14/2021 BMP + IONIZ ED CALCI UM, SERUM OR PLASM A ica 1.15 mmol/ L 1.12-1 .32 Not Available [facility] [address] [place], [address], 12/14/2021 15:11:21 12/15/19 22 12/14/2021 BMP + IONIZ ED CALCI UM, SERUM OR PLASM A HCT 28 %pcv 38-51 Not Available [facility] [address] [place], [address], 12/14/2021 15:11:21 12/15/19 22 12/14/2021 BMP + IONIZ ED CALCI UM, SERUM OR PLASM A Hb 9.5 g/dL 12-17 Not Available [facility] [address] [place], [address], 12/14/2021 15:11:21 Result Notes None recorded. Procedures Surgical History Date Name Laterality Status Provider Name and Address Organization Details Recorded Time 12/15/19 Venipuncture - completed LIO VANCE NP [address] [place], [address], [place] [facility] 12/14/2021 19:45:24 12/15/19 ECG Interpretation - completed LIO VANCE NP [address] [place], [address], [place] [facility] 12/14/2021 19:46:52 radical prostatectomy completed LIO VANCE NP [address] [place], [address], [place] [facility] 12/14/2021 15:23:36 arterial bypass graft completed LIO VANCE NP [address], [place], [address], [place] [facility] 12/14/2021 15:23:50 Imaging Results [...] Vitals Date Recorded Heart rate Oxygen saturation Respiratory rate Body temperature Body temperature Respiratory rate Heart rate Oxygen saturation Systolic And Diastolic Systolic And Diastolic Provider Name and Address Organization Details Last Updated DateTime 102 /min 98 % 20 /min 98.2 [degF] 98.2 [degF] 20 /min 107 /min 99 % 136/58 mm[Hg] 124/68 mm[Hg] Not Available [facility] 14:48:56 Social History None recorded. Functional Status None recorded. Mental Status None recorded. Family History Nothing Reported. Medical History Condition Response Coronary Artery Disease Y COPD Y Depression N Hypothyroidism N A-fib N Cancer N Stroke N High Cholesterol Y Rheumatoid Arthritis N Kidney Disease Y Parkinson's Disease N Diabetes N CHF N Dementia N Asthma N Pulmonary Embolism N Hypertension Y Osteoporosis N Past Encounters Encounter ID Performer Location Encounter Start Date Encounter Closed Date Diagnosis/Indication Diagnosis SNOMED-CT Code Diagnosis ICD10 Code Diagnosis IMO Codes Diagnosis Note [id number] LIO VANCE NP [facility] [address] [place] [address] 12/14/2021 14:40:12 12/15/2021 12:28:27 Near syncope [id number] R55 Health Concerns Section Related Observation LastModified by Organization Detai ls LastModified Time None Recorded Concern Status LastModified by Organization Details LastModified Time None Recorded Advance Directives Directive None Recorded Payers Insurance Date Sequence Insurance Name Policy Number Policy Eckert Covered Member ID Eckert Member ID Guarantor Name 12/17/2021 1 [place]: [employer] Mikal Elizondo [id number] Mikal Elizondo 12/14/2021 2 [employer] [id number] Mikal Elizondo [id number] Mikal Elizondo 12/14/2021 1 *SELF PAY* Mikal Elizondo [id number] Mikal Elizondo 12/14/2021 2 [employer] [id number] Mikal Elizondo [id number] Mikal Elizondo 12/14/2021 1 [place] [employer] Mikal Elizondo [id number] Mikal Elizondo Notes Date Note Type Note Provider Name and Address Organization Details Recorded Time 12/14/2021 text/html 71 year-old male with history of PAD, CAD, HTN, HLD, COPD who calls to home to evaluate him for dizziness. He is feeling better today.Pt reports he is 2 days post DC from [facility]. Pt underwent elective EVAR with bilateral [...] been no pelvic discomfort. LIO VANCE NP [facility] [address], [place], [address], [place] [facility] 12/14/2021 20:00:48
--- OUTSIDE RECORDS SUMMARY | 2025-01-14 15:10 | XMS_ITS | Data Portability ---
Author Organization [place] [facility], [facility] Address [address] [place] [address] Care Team Providers Care Herpetology Teacher Name Role Phone EMMANUEL COPELAND Primary Care [...] 15 mg tablet 2024 025 [email or web address] [id number] [place], [address], 5 10:49:41 Patient TargetsNo targets recorded. 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 Procedures Surgical History Date Name Laterality Status Provider Name and Address Organization Details Recorded Time 5 JZShoulder INJ completed Chad Hunter PA-C [address], [place], [address], [facility] 07/23/2024 07:40:15 5 JZShoulder INJ completed Chad Hunter PA-C [address], [place], [address], [facility] 04/23/2024 08:51:15 4 JZShoulder INJ completed Chad Hunter PA-C [address], [place], [address], [facility] 01/23/2024 08:52:21 4 JZShoulder INJ completed Chad Hunter PA-C [address] [facility], [place], [address], [facility] 10/24/2023 08:54:24 4 JZCMC Inj completed Chad Hunter PA-C [address] [facility], [place], [address], [facility] 10/24/2023 08:54:34 4 JZShoulder INJ completed Chad Hunter PA-C [address] [facility], [place], [address], [facility] 07/26/2023 13:08:59 [...] Updated DateTime 04/23/2024 177.8 cm 23.7 kg/m2 31210.74 g [facility] 04/23/2024 08:28:45 Date Recorded Body height Body mass index (BMI) Body weight Provider Name and Address Organization Details Last Updated DateTime 07/23/2024 177.8 cm 23.7 kg/m2 84571.74 g [facility] 07/23/2024 07:27:11 Date Recorded Body height Body mass index (BMI) Body weight Provider Name and Address Organization Details Last Updated DateTime 07/26/2023 177.8 cm 23.7 kg/m2 77090.74 g Merced Curtis [facility] 07/26/2023 13:05:11 Date Recorded Body height Body mass index (BMI) Body weight Provider Name and Address Organization Details Last Updated DateTime 10/24/2023 177.8 cm 23.7 kg/m2 76309.74 g Bayron Gaffney [facility] 10/24/2023 08:48:57 Date Recorded Body height Body mass index (BMI) Body weight Provider Name and Address Organization Details Last Updated DateTime 01/23/2024 177.8 cm 23.7 kg/m2 04693.74 g Bayron Gaffney [facility] 01/23/2024 08:49:29 Social History None recorded. Functional Status None recorded. Mental Status None recorded. Family History Nothing Reported. Medical History No medical history recorded. Past Encounters Encounter ID Performer Location Encounter Start Date Encounter Closed Date Diagnosis/Indication Diagnosis SNOMED-CT Code Diagnosis ICD10 Code Diagnosis IMO Codes Diagnosis Note [id number] GUERDA Dawson [address] [place] [address] 07/26/2023 12:43:37 08/20/2023 13:07:39 Impingement syndrome of left shoulder region [id number] 31616 M75.42 [id number] GUERDA Dawson [address] [place] [address] 10/24/2023 08:42:15 11/19/2023 13:35:25 Impingement syndrome of left shoulder region [id number] 93141 M75.42 Osteoarthr osis of the carpometacarpal joint of the thumb 89648038 M18.9 [id number] GUERDA Dawson [address] [place] [address] 01/23/2024 08:45:15 02/19/2024 07:48:29 Impingement syndrome of left shoulder region [id number] 83370 M75.42 [id number] GUERDA Dawson [facility] [address] [place] [address] 04/23/2024 08:18:47 05/09/2024 12:39:46 Impingement syndrome of left shoulder region [id number] 76559 M75.42 [id number] GUERDA Dawson [facility] [place] [address] [place] [address] 07/23/2024 07:22:30 08/04/2024 13:32:23 Impingement syndrome of left shoulder region 5825224657 46514 M75.42 Health Concerns Section Related Observation LastModified by Organization Detai ls LastModified Time None Recorded Concern Status LastModified by Organization Details LastModified Time None Recorded Advance Directives Directive None Recorded Payers Insurance Date Sequence Insurance Name Policy Number Policy Eckert Covered Member ID Eckert Member ID Guarantor Name 07/20/2024 1 [place]: [employer] Mikal Elizondo [id number] Mikal Elizondo 08/04/2024 2 [employer] (POS) [id number] Mikal Elizondo [id number] Mikal Elizondo 09/07/2023 2 UNSPECIFIED REMIT PAYOR Mikal Elizondo
[2025-01-14 15:42] LABS: INTERNATIONAL NORM RATIO 1.4 (0.9-1.1); Prothrombin Time 16.6 SEC (11.2-13.5)
[2025-01-14 15:44] LABS: Partial Thromboplastin Time 33.4 SEC (26.7-34.1)
--- NOTE | 2025-01-14 16:12 | PC.NURSE ---
IR procedure for sunday is now cancelled. patient will now be transferred to IR via transport staff momentarily. report provided to GUILLERMO Kendrick at this time.
--- NOTE | 2025-01-14 17:22 | HO.RADPN ---
RADIOLOGY Narrative Narrative: 6 fr drain placed in gallbladder fossa collection. 10-15 mL bilious clear fluid aspirated. GS and culture sent.
--- NOTE | 2025-01-14 19:25 | PM.EVENT ---
Event Note Date of Service: 01/14/25 Event Note: I was called by Dr Valentine - IR drain placed 10-15 cc of clear bilious fluid drained pt tolerated the procedure well likely small bile leak? plan to see how output is - if this continues to be significant, may need ERCP, stenting Time Spent With Patient Time: Total time managing care of this patient today ____ minutes.
[2025-01-15 03:32] VITALS: BP 144/67; PULSE 86; RESP 16; TEMP 36.6; O2SAT 92
[2025-01-15] MEDS: Lactated Ringers 1,000 ML 100 ML IVCONT ×2 (06:09→21:03)
[2025-01-15 08:00] VITALS: BP 179/74; PULSE 85; RESP 16; TEMP 37.1; O2SAT 94
--- NOTE | 2025-01-15 09:35 | P.PNGS_ITS ---
Subjective Subjective Date of Service: 01/15/25 Interval history: Patient underwent IR drainage yesterday feels much improved today. He reports stepping on the tube going to the bathroom and did have some pain at the incision site. Drain continues to produce clear fluid with debris but no bile or blood. Physical Exam 2 Vital Signs: Vital Signs: Last Vital Signs Temp 98.7 F 01/15/25 08:00 Pulse 85 01/15/25 08:00 Resp 16 01/15/25 08:00 BP 179/74 H 01/15/25 08:00 Pulse Ox 94 01/15/25 08:00 O2 Del Method Room Air 01/15/25 08:00 BMI result Body Mass Index 22.3 Const: General: comfortable Nutritional Appearance: well nourished O rientation/consciousness: patient oriented x3 Resp: Effort & Inspection: normal respiratory effort GI: Other: IR drain with clear fluid and debris, no bile Inspection: Yes normal to inspection Palpation (GI): Soft to palpation, nontender, no guarding and not rigid Neuro: General: patient oriented x3 Objective Data Active Medications Acetaminophen (Acetaminophen 325 Mg Tablet) 650 mg PO Q6H PRN PRN Reason: Pain, Mild 1-3,fever,headache Amlodipine Besylate (Amlodipine Besylate 5 Mg Tablet) 5 mg PO DAILY [facility]; Protocol Last Admin: 01/15/25 08:48 Dose: 5 mg Documented By: SERGE Calcium Carbonate (Calcium Carbonate 750 Mg Tab.Chew) 750 mg PO Q4H PRN PRN Reason: Heartburn Carvedilol (Carvedilol 25 Mg Tablet) 25 mg PO BID [facility]; Protocol Last Admin: 01/15/25 08:48 Dose: 25 mg Documented By: SERGE Heparin Sodium (Porcine) (Heparin Sodium,Porcine 5,000 Unit/Ml Vial) 5,000 unit SUBCUT Q8H [facility] Last Admin: 01/15/25 06:05 Dose: 5,000 unit Documented By: HESHAM Piperacillin Sod/Tazobactam (Sod 3.375 gm/ Sodium Chloride) 50 mls @ 100 mls/hr IV Q6H [facility] Last Infusion: 01/15/25 09:27 Dose: Infused Documented By: SERGE Lactated Ringer's (Lr) 1,000 mls @ 100 mls/hr IVCONT .Q10H [facility] Last Admin: 01/15/25 06:09 Dose: 100 mls/hr Documented By: HESHAM Levalbuterol HCl (Levalbuterol Hcl 1.25 Mg/3 Ml Vial.Neb) 1.25 mg INHALE Q4H PRN PRN Reason: Shortness of Breath/Wheezing Magnesium Hydroxide (Milk Of Magnesia 30 Ml Oral.Susp) 30 ml PO DAILY PRN PRN Reason: Constipation Melatonin (Melatonin 3 Mg Tablet) 6 mg PO BEDTIME PRN PRN Reason: Insomnia Morphine Sulfate (Morphine Sulfate 4 Mg/Ml Cartridge) 2 mg IVPUSH Q3H PRN; Protocol PRN Reason: Pain, Severe (Pain Scale 7-10) Last Admin: 01/14/25 21:56 Dose: 2 mg Documented By: JENIFER Omeprazole (Omeprazole 20 Mg Capsule.Dr) 20 mg PO BID@0630,1630 [facility] Last Admin: 01/15/25 06:05 Dose: 20 mg Documented By: HESHAM Oxycodone HCl (Oxycodone Hcl Immed Release 5 Mg Tablet) 5 mg PO Q4H PRN PRN Reason: Pain, Moderate(Pain Scale 4-6) Sodium Chloride (0.9 % Sodium Chloride Flush 3 Ml Syringe) 3 ml IVFLUSH QSHIFT [facility] Last Admin: 01/15/25 08:48 Dose: Not Given Documented By: SERGE Non-Admin Reason: IV Running Labs 01/14/25 12:02 01/14/25 12:02 Labs: Laboratory Results - last 24 hr 01/14/25 01/14/25 01/14/25 12:02 14:30 14:39 MCV 85.6 MCH 28.5 MCHC 33.2 RDW 14.6 Plt Count 372 D MPV 10.8 Immature Gran % (Auto) 2.1 H Neut % (Auto) 69.3 Lymph % (Auto) 15.9 L Sampson % (Auto) 9.0 Eos % (Auto) 2.8 Baso % (Auto) 0.9 Lymph # (Auto) 2.5 Sampson # (Auto) 1.4 H Eos # (Auto) 0.4 Baso # (Auto) 0.1 Abs Immat Gran (auto) 0.32 H Absolute Neuts (auto) 10.7 H Absolute Nucleated RBC 0.000 Nucleated RBC % (auto) 0.0 PT INR APTT Anion Gap 17 Estim Creat Clear Calc 55.9 Estimated GFR > 60 Random Glucose 144 H Lactic Acid 2.4 H* Lactic Acid F/U @ 2Hr 1.0 Calcium 9.8 Magnesium 2.1 Total Bilirubin 0.5 Direct Bilirubin 0.2 AST 30 ALT 29 Alkaline Phosphatase 113 Total Protein 7.5 Albumin 4.3 Lipase 50 Urine Color Yellow Urine Appearance Clear Urine pH 7.5 Ur Specific [place] 1.020 Urine Protein Negative Urine Glucose (UA) 500 H Urine Ketones Negative Urine Blood Negative Urine Nitrite Negative Ur Leukocyte Esterase Negative 01/14/25 15:27 MCV MCH MCHC RDW Plt Count MPV Immature Gran % (Auto) Neut % (Auto) Lymph % (Auto) Sampson % (Auto) Eos % (Auto) Baso % (Auto) Lymph # (Auto) Sampson # (Auto) Eos # (Auto) Baso # (Auto) Abs Immat Gran (auto) Absolute Neuts (auto) Absolute Nucleated RBC Nucleated RBC % (auto) PT 16.6 H INR 1.4 H APTT 33.4 Anion Gap Estim Creat Clear Calc Estimated GFR Random Glucose Lactic Acid Lactic Acid F/U @ 2Hr Calcium Magnesium Total Bilirubin Direct Bilirubin AST ALT Alkaline Phosphatase Total Protein Albumin Lipase Urine Color Urine Appearance Urine pH Ur Specific [place] Urine Protein Urine Glucose (UA) Urine Ketones Urine Blood Urine Nitrite Ur Leukocyte Esterase Procedures Date of Service Date of Service: 01/15/25 Progress Note: A&P Assessment and plan (1) Postoperative pain: Status: Acute Plan 74-year-old male patient status post laparoscopic cholecystectomy for acute gangrenous cholecystitis returning with increased abdominal pain found to have a fluid collection at the gallbladder fossa. IR drainage yesterday produced what appears to be postoperative fluid collection with no bile or pus. Patient feels much improved after IR drainage. We will advance diet today. Continue to monitor IR drain output. Time Spent With Patient Time: Total time managing care of this patient today ____ minutes. Quality Stroke Does the patient have a stroke diagnosis?: No VTE Prior VTE?: No VTE Risk Level:: Medical - moderate - high VTE Device Contraindication: N/A - Device Ordered VTE Drug Contraindication: N/A - Med Ordered
[2025-01-15 10:06] LABS: Alanine Aminotransferase 26 U/L (0-40); Albumin Level 3.6 g/dL (3.5-5.0); Alkaline Phosphatase 94 U/L (39-117); Anion Gap 13 (12-20); Aspartate Amino Transferase 27 U/L (5-37); Blood Urea Nitrogen 10 mg/dL (9-16); Carbon Dioxide 26 mmol/L (22-29); Chloride 104 mmol/L (96-108); Creatinine Clr Calc Pharmacy 59.1; Estimated Glomerular Filt Rate > 60; Potassium 3.8 mmol/L (3.3-5.1); Sodium 139 mmol/L (135-145); Total Protein 6.4 g/dL (6.5-8.0)
[2025-01-15 10:11] LABS: Calcium 8.7 mg/dL (8.4-10.2)
--- NOTE | 2025-01-15 11:43 | MHC.CM.PN ---
PT REPORTS HE LIVES WITH HIS AND IS INDEPENDENT WITH CARE AND MOBILITY COPY OF HCP REQUESTED PCP: EMMANUEL COPELAND IMM DELIVERED DCP: HOME VIA FAMILY TRANSPORT
[2025-01-15] MEDS: 0.9 % Sodium Chloride Flush 3 ML SYRINGE IVFLUSH (14:24)
[2025-01-15 14:49] LABS: Hematocrit 31.2 % (42.0-52.0); Hemoglobin 9.9 g/dl (14.0-18.0); Mean Corpuscular HGB Conc 31.7 g/dl (31.0-36.0); Mean Corpuscular Hemoglobin 27.7 pg (27.0-33.0); Mean Corpuscular Volume 87.4 fL (80.0-98.0); NRBC Abs Auto 0.000 X10*3/uL (0.0-0.012); NRBC Pct Auto 0.0 /100WBC (0.0-0.2); Platelet Count 314 X10*3/uL (160-400); Red Blood Count 3.57 X10*6/uL (4.60-5.80); White Blood Count 12.1 X10*3/uL (4.8-10.8)
[2025-01-15 16:00] VITALS: BP 171/71; PULSE 86; RESP 18; TEMP 36.9; O2SAT 94
--- NOTE | 2025-01-15 17:46 | PC.NURSE ---
Patient reported to nurse that he pulled gravity drain to gallbladder when changing in the bathroom. Surgical cardiopulmonary physical therapist notified with orders to place a dressing and monitor. Dressing was changed and drain noted to have 20cc output and tubing intact after removal.
[2025-01-15 19:49] VITALS: BP 154/76; PULSE 81; RESP 18; TEMP 36.7; O2SAT 95
[2025-01-15] MEDS: oxyCODONE HCl Immed Release 5 MG TABLET PO (21:04)
[2025-01-16 03:07] VITALS: BP 132/63; PULSE 79; RESP 16; TEMP 36.1; O2SAT 95
[2025-01-16] MEDS: oxyCODONE HCl Immed Release 5 MG TABLET PO ×3 (07:19→14:27)
[2025-01-16] MEDS: Lactated Ringers 1,000 ML 100 ML IVCONT (07:24)
[2025-01-16 07:34] VITALS: BP 167/71; PULSE 82; RESP 16; TEMP 36.4; O2SAT 94
--- NOTE | 2025-01-16 09:26 | P.PNGS_ITS ---
Subjective Subjective Date of Service: 01/16/25 Interval history: SANDY drain pulled out inadvertently yesterday by patient Says he feels well Denies abdominal pain No fever Physical Exam 2 Vital Signs: Vital Signs: Last Vital Signs Temp 97.5 F 01/16/25 07:34 Pulse 82 01/16/25 07:34 Resp 16 01/16/25 07:34 BP 167/71 H 01/16/25 07:34 Pulse Ox 94 01/16/25 07:34 O2 Del Method Room Air 01/16/25 07:34 BMI result Body Mass Index 22.3 Const: General: comfortable and no acute distress Resp: Effort & Inspection: normal respiratory effort Cardio: Rate: regular rate GI: Palpation (GI): Soft to palpation, not firm and nontender Objective Data Active Medications Acetaminophen (Acetaminophen 325 Mg Tablet) 650 mg PO Q6H PRN PRN Reason: Pain, Mild 1-3,fever,headache Last Admin: 01/15/25 21:03 Dose: 650 mg Documented By: ZOIE Amlodipine Besylate (Amlodipine Besylate 5 Mg Tablet) 5 mg PO DAILY [facility]; Protocol Last Admin: 01/16/25 07:19 Dose: 5 mg Documented By: MAICO Calcium Carbonate (Calcium Carbonate 750 Mg Tab.Chew) 750 mg PO Q4H PRN PRN Reason: Heartburn Carvedilol (Carvedilol 25 Mg Tablet) 25 mg PO BID [facility]; Protocol Last Admin: 01/16/25 07:19 Dose: 25 mg Documented By: MAICO Heparin Sodium (Porcine) (Heparin Sodium,Porcine 5,000 Unit/Ml Vial) 5,000 unit SUBCUT Q8H [facility] Last Admin: 01/16/25 05:50 Dose: 5,000 unit Documented By: JOAN Piperacillin Sod/Tazobactam (Sod 3.375 gm/ Sodium Chloride) 50 mls @ 100 mls/hr IV Q6H [facility] Last Infusion: 01/16/25 07:49 Dose: Infused Documented By: MAICO Lactated Ringer's (Lr) 1,000 mls @ 100 mls/hr IVCONT .Q10H [facility] Last Admin: 01/16/25 07:24 Dose: 100 mls/hr Documented By: MAICO Levalbuterol HCl (Levalbuterol Hcl 1.25 Mg/3 Ml Vial.Neb) 1.25 mg INHALE Q4H PRN PRN Reason: Shortness of Breath/Wheezing Magnesium Hydroxide (Milk Of Magnesia 30 Ml Oral.Susp) 30 ml PO DAILY PRN PRN Reason: Constipation Melatonin (Melatonin 3 Mg Tablet) 6 mg PO BEDTIME PRN PRN Reason: Insomnia Last Admin: 01/15/25 21:04 Dose: 6 mg Documented By: ZOIE Morphine Sulfate (Morphine Sulfate 4 Mg/Ml Cartridge) 2 mg IVPUSH Q3H PRN; Protocol PRN Reason: Pain, Severe (Pain Scale 7-10) Last Admin: 01/14/25 21:56 Dose: 2 mg Documented By: JENIFER Omeprazole (Omeprazole 20 Mg Capsule.) 20 mg PO BID@0630,1630 [facility] Last Admin: 01/16/25 05:50 Dose: 20 mg Documented By: JOAN Oxycodone HCl (Oxycodone Hcl Immed Release 5 Mg Tablet) 5 mg PO Q4H PRN PRN Reason: Pain, Moderate(Pain Scale 4-6) Last Admin: 01/16/25 07:19 Dose: 5 mg Documented By: MAICO Sodium Chloride (0.9 % Sodium Chloride Flush 3 Ml Syringe) [facility] Last Admin: 01/16/25 07:26 Dose: Not Given Documented By: MAICO Non-Admin Reason: IV Running Labs 01/15/25 14:28 01/15/25 09:10 Labs: Laboratory Results - last 24 hr 01/15/25 01/15/25 09:10 14:28 MCV 87.4 MCH 27.7 MCHC 31.7 RDW 14.7 Plt Count 314 MPV 10.6 Absolute Nucleated RBC 0.000 Nucleated RBC % (auto) 0.0 Anion Gap 13 Estim Creat Clear Calc 59.1 Estimated GFR > 60 Random Glucose 94 Calcium 8.7 D Total Bilirubin 0.4 AST 27 ALT 26 Alkaline Phosphatase 94 Total Protein 6.4 L Albumin 3.6 Microbiology Microbiology Results: Microbiology 01/14/25 17:05 Gram Stain - Final Abdominal Fluid Routine Culture - Preliminary No growth to date. Anaerobic Culture - Preliminary No growth to date. 01/14/25 12:02 Blood Culture - Preliminary Blood - Venous No growth after 24 hours. 01/14/25 12:02 Blood Culture - Preliminary Blood - Venous No growth after 24 hours. Procedures Date of Service Date of Service: 01/16/25 Progress Note: A&P Assessment and plan (1) Postoperative pain: Status: Acute Assessment and Plan: Had IR drain placed for gallbladder fossa fluid collection last Sunday Discussed with Dr. Valentine - likely biloma, no obvious active leak IR drain pulled out eventually yesterday He says he continues to feel well Denies abdominal pain Tolerating diet Labs okay and LFTs were normal We will see how he does today and possible DC home tomorrow if no evidence of active bile leak Time Spent With Patient Time: Total time managing care of this patient today ____ minutes. Quality Stroke Does the patient have a stroke diagnosis?: No VTE Prior VTE?: No VTE Risk Level:: Medical - moderate - high VTE Device Contraindication: N/A - Device Ordered VTE Drug Contraindication: N/A - Med Ordered
[2025-01-16 15:31] VITALS: BP 139/90; PULSE 85; RESP 18; TEMP 36.7; O2SAT 94
[2025-01-16] MEDS: 0.9 % Sodium Chloride Flush 3 ML SYRINGE IVFLUSH ×2 (16:10→21:11)
--- NOTE | 2025-01-16 16:17 | MHC.CM.PN ---
PER MD NOTE, PT MAY BE READY TO DC HOME TOMORROW CM FOLLOWING
[2025-01-16 19:21] VITALS: BP 148/75; PULSE 84; RESP 18; TEMP 36.4; O2SAT 95
[2025-01-17 08:22] VITALS: BP 125/60; PULSE 90; RESP 12; TEMP 36.6; O2SAT 96
[2025-01-17 08:27] LABS: Alanine Aminotransferase 35 U/L (0-40); Albumin Level 3.9 g/dL (3.5-5.0); Alkaline Phosphatase 84 U/L (39-117); Aspartate Amino Transferase 40 U/L (5-37); Total Protein 6.7 g/dL (6.5-8.0)
[2025-01-17] MEDS: 0.9 % Sodium Chloride Flush 3 ML SYRINGE IVFLUSH (08:48)
--- NOTE | 2025-01-17 09:56 | PM.PNGS ---
Subjective Subjective Date of Service: 01/17/25 Interval history: Continues to feel well Denies abdominal pain Slept well overnight Says he has a good oral intake States that this has best he has felt in 2 months Physical Exam Vital Signs: Vital Signs: Last Vital Signs Temp 97.9 F 01/17/25 08:22 Pulse 90 01/17/25 08:22 Resp 12 01/17/25 08:22 BP 125/60 01/17/25 08:22 Pulse Ox 96 01/17/25 08:22 O2 Del Method Room Air 01/17/25 08:22 BMI result Body Mass Index 22.3 Const: General: comfortable and no acute distress Eyes: Other: Anicteric Resp: Effort & Inspection: normal respiratory effort Cardio: Rate: regular rate GI: Palpation (GI): Soft to palpation, not firm, nontender and no guarding Objective Data Active Medications Acetaminophen (Acetaminophen 325 Mg Tablet) 650 mg PO Q6H PRN PRN Reason: Pain, Mild 1-3,fever,headache Last Admin: 01/16/25 14:27 Dose: 650 mg Documented By: MAICO Amlodipine Besylate (Amlodipine Besylate 5 Mg Tablet) 5 mg PO DAILY [facility]; Protocol Last Admin: 01/17/25 08:48 Dose: 5 mg Documented By: MIKALA Calcium Carbonate (Calcium Carbonate 750 Mg Tab.Chew) 750 mg PO Q4H PRN PRN Reason: Heartburn Carvedilol (Carvedilol 25 Mg Tablet) 25 mg PO BID [facility]; Protocol Last Admin: 01/17/25 08:48 Dose: 25 mg Documented By: MIKALA Heparin Sodium (Porcine) (Heparin Sodium,Porcine 5,000 Unit/Ml Vial) 5,000 unit SUBCUT Q8H [facility] Last Admin: 01/17/25 08:48 Dose: 5,000 unit Documented By: MIKALA Piperacillin Sod/Tazobactam (Sod 3.375 gm/ Sodium Chloride) 50 mls @ 100 mls/hr IV Q6H [facility] Last Infusion: 01/17/25 09:33 Dose: Infused Documented By: MIKALA Levalbuterol HCl (Levalbuterol Hcl 1.25 Mg/3 Ml Vial.Neb) 1.25 mg INHALE Q4H PRN PRN Reason: Shortness of Breath/Wheezing Magnesium Hydroxide (Milk Of Magnesia 30 Ml Oral.Susp) 30 ml PO DAILY PRN PRN Reason: Constipation Melatonin (Melatonin 3 Mg Tablet) 6 mg PO BEDTIME PRN PRN Reason: Insomnia Last Admin: 01/15/25 21:04 Dose: 6 mg Documented By: ZOIE Morphine Sulfate (Morphine Sulfate 4 Mg/Ml Cartridge) 2 mg IVPUSH Q3H PRN; Protocol PRN Reason: Pain, Severe (Pain Scale 7-10) Last Admin: 01/14/25 21:56 Dose: 2 mg Documented By: JENIFER Omeprazole (Omeprazole 20 Mg Capsule.) 20 mg PO BID@0630,1630 [facility] Last Admin: 01/17/25 04:44 Dose: 20 mg Documented By: SOULEYMANE Oxycodone HCl (Oxycodone Hcl Immed Release 5 Mg Tablet) 5 mg PO Q4H PRN PRN Reason: Pain, Moderate(Pain Scale 4-6) Last Admin: 01/16/25 14:27 Dose: 5 mg Documented By: MAICO Sodium Chloride (0.9 % Sodium Chloride Flush 3 Ml Syringe) 3 ml IVFLUSH [facility] Last Admin: 01/17/25 08:48 Dose: 3 ml Documented By: LUCIAME Labs 01/15/25 14:28 01/15/25 09:10 Labs: Laboratory Results - last 24 hr 01/17/25 07:51 Hold Purple Top SEE NOTE Total Bilirubin 0.3 Direct Bilirubin 0.1 AST 40 H ALT 35 Alkaline Phosphatase 84 Total Protein 6.7 Albumin 3.9 Microbiology Microbiology Results: Microbiology 01/14/25 17:05 Gram Stain - Final Abdominal Fluid Routine Culture - Final No growth after 2 days Anaerobic Culture - Preliminary No growth to date. 01/14/25 12:02 Blood Culture - Preliminary Blood - Venous No growth after 48 hours. 01/14/25 12:02 Blood Culture - Preliminary Blood - Venous No growth after 48 hours. Procedures Date of Service Date of Service: 01/17/25 Progress Note: A&P Assessment and plan (1) Biloma: Status: Acute Assessment and Plan: Had biloma status post laparoscopic cholecystectomy with no active leak IR drainage done Feels well LFTs good this morning Looks well Good oral intake Denies any abdominal pain No fever Okay to DC home today follow up in the office Instructions reinforced with the patient Time Spent With Patient Time: Total time managing care of this patient today ____ minutes. Quality Stroke Does the patient have a stroke diagnosis?: No VTE Prior VTE?: No VTE Risk Level:: Medical - moderate - high VTE Device Contraindication: N/A - Device Ordered VTE Drug Contraindication: N/A - Med Ordered
--- NOTE | 2025-01-17 10:37 | MHC.CM.PN ---
PT CLEARED TO DC HOME TODAY WTIH NO SERVICES PT WILL ARRANGE TRANSPORT
--- NOTE | 2025-01-17 11:48 | P.DS_ITS ---
DS: Providers Provider Date of Service: 01/17/25 Date of admission: 01/14/25 14:10 Date of discharge: 01/17/25 Primary care physician: Kiko Coats MD Attending physician on admission: Zohaib Mosher Consults: 01/14/25 14:08 Consult to Hospitalist Routine Comment: Consulting Provider: [facility] Hospitalists Reason For Exam: HTN, COPD Attending physician on discharge: Zohaib Mosher DS: Diagnosis Discharge Diagnosis (1) Biloma: Status: Acute DS: Summary Hospital Course Hospital Course: HPI AT ADMISSION: Mikal Elizondo is a 74 year old male who had undergone laparoscopic cholecystectomy last January 07, 2025 as an outpatient for symptomatic gallstones. He was discharged on the same day. However, he says that he continues to have vague abdominal pain which he says is similar to what he has had before surgery. His says that there are days that he would seem to be better and there were days that he seems to have significant pain. I saw him in the office this morning and brought him to the ER to have a CAT scan done. He also says he has had poor appetite and has had poor oral intake for the past few days. He denies any fever or chills. He denies any vomiting. He has a known history of COPD and AAA. His intraop findings actually showed edema of the gallbladder with significant adhesions. His path report showed acute cholecystitis with focal gangrene. CAT scan and this shows a fluid collection in the gallbladder fossa with bubbles of air suggestive of an abscess. HOSPITAL COURSE: He was admitted to the surgical service for further treatment of the intraabdominal abscess. Hospitalist consult was obtained for management of his medical comorbidities. He was started on IV abx. IR drainage was arranged and performed on 01/14/25 with drainage of around 15cc clearish bile appearing fluid. Drain was left in place. Likely biloma, no obvious active leak noted by radiology. He had significant improvement in his symptoms and his diet was advanced. Unfortunately the drain was dislodged by the patient. Intraabdominal fluid had no growth. His leukocytosis downtrended and LFTs remained WNL. He continued to do well and was tolerating a solid diet without abd pain, nausea or vomiting. He was hemodynamically stable with a benign abd exam. He felt ready for discharge to home. He was discharged to home on 01/17/25 in stable condition. He is to follow up in the office in 1 week. Status at Discharge Functional status at discharge: independent ambulation Time Attestation Discharge Coordination Time (in mins): 25 Quality: Safe Use of Opioids Does Pt have an Active Cancer Diagnosis on the Problem List?: No Quality: Stroke Does the patient have a stroke diagnosis?: No Physical Exam Vital Signs: Vital Signs: Last Vital Signs Temp 97.9 F 01/17/25 08:22 Pulse 90 01/17/25 08:22 Resp 12 01/17/25 08:22 BP 125/60 01/17/25 08:22 Pulse Ox 96 01/17/25 08:22 O2 Del Method Room Air 01/17/25 08:22 BMI result Body Mass Index 22.3 Const: General: comfortable, no acute distress and alert Orientation/consciousness: patient oriented x3 Resp: Effort & Inspection: normal respiratory effort GI: Other: Soft to palpation, not firm, nontender and no guarding Skin: General skin exam: no jaundice Neuro: General: patient oriented x3 and moves all extremities DS: Data Data Completed and Pending Labs on day of discharge: Preliminary micro results at discharge 01/14/25 12:02 Blood Culture - Preliminary Blood - Venous No growth after 48 hours. 01/14/25 12:02 Blood Culture - Preliminary Blood - Venous No growth after 48 hours. Discharge Plan Discharge Anticipated Discharge Date/Time: 01/17/25 09:59 Patient Disposition: Home, Self-Care Discharge Diagnosis: biloma Referrals: Lucinda Ovalle DO [Other] Kiko Coats MD [Primary Care Provider, Medical] - 1 Week Zohaib Mosher MD [Physician, General Surgery] - 2 Weeks Discharge Medications: Continued ibuprofen 600 mg tablet 600 mg PO Q6H PRN (Reason: pain) Qty: 20 0RF ipratropium-albuterol 0.5 mg-3 mg(2.5 mg base)/3 mL solution for nebulization 3 ml INHALATION Q4-6H PRN (Reason: Shortness Of Breath Or Wheezing) amlodipine 5 mg tablet 5 mg PO DAILY ketoconazole 2 % cream 1 appl topical DAILY PRN (Reason: Rash) levalbuterol tartrate 45 mcg/actuation HFA aerosol inhaler 2 puff inhalation Q4-6H PRN (Reason: Shortness Of Breath Or Wheezing) pantoprazole 40 mg tablet,delayed release (DR/EC) 40 mg PO BID@0630,1630 aspirin 81 mg tablet,delayed release (DR/EC) 81 mg PO DAILY atorvastatin 40 mg tablet 40 mg PO BEDTIME multivitamin [Daily Multi-Vitamin] Tablet 1 tab PO DAILY Jardiance 10 mg tablet 10 mg PO DAILY carvedilol 25 mg tablet 25 mg PO BID Rx Instructions: must administer with a meal/food famotidine 40 mg tablet 40 mg PO DAILY Discharge Orders: Discharge Order (Routine); Ordered 01/17/25 Ordered By: Zohaib Mosher Diet: Low fat, low cholesterol Activity on Discharge: No heavy lifting Stand Alone Forms: Patient Portal Discharge page Print Language: Ugandan Activity Restrictions/Additional Instructions: No lifting more than 20 lb No strenuous activities Call the office for follow-up in 2 weeks - with Dr. Mosher Call Your Doctor If: -Your temperature exceeds 101.5? F -You experience excessive pain or swelling -You have an unexpected reaction to medication -You have excessive bleeding -You experience continued vomiting/nausea -Your incision begins to separate -Your incision shows signs of infection such as increased redness, swelling, excessive pain, drainage (light blood or clear fluid is normal) or heat Care Plan Goals: Returned to baseline Health Concerns: Recent cholecystectomy with biloma Plan of Treatment: Follow up in the office No new medication Assessment: Doing very well Discharge Date/Time: 01/17/25 11:37
== END 2025-01-17 11:37 | disposition home or self-care (01) | DRG 862 ==
LOC: HO.ED 12:11 → HO.EDOVER 14:10 → HO.S3 15:08
PROVIDERS: Physician Assistant; Physician Assistant Medical; Radiology Diagnostic Radiology; Admitting Provider Surgery; Emergency Provider Emergency Medicine; PCP Internal Medicine; Visit Provider Surgery
PROC: 0W9G30Z Drainage of Peritoneal Cavity with Drainage Device, Percutaneous Approach (ICD-10-PCS; principal; 2025-01-14 15:30)
DX: T81.43XA Infection following a procedure, organ and space surgical site, initial encounter (principal); K65.1 Peritoneal abscess; J44.9 Chronic obstructive pulmonary disease, unspecified; I10 Essential (primary) hypertension; Z79.82 Long term (current) use of aspirin; Z79.899 Other long term (current) drug therapy
CPT/HCPCS: 36415; 49406; 74177; 80048; 80053; 80076; 81003; 83605; 83690; 83735; 85025; 85027; 85610; 85730; 87040; 87070; 87073; 87205; 99152; 99153; 99212; 99285; J0131; J0696; J1171; J1644; J1836; J2250; J2270; J2543; J3010; J7120; Q9967

== ENCOUNTER → 2025-01-14 13:06 | Outpatient (BNV) | payer MEDICARE, OTHER, SELFPAY | PROVIDERS: Admitting Provider Surgery; Emergency Provider Emergency Medicine; PCP Internal Medicine; Visit Provider Radiology Diagnostic Radiology | DX: K57.30 Diverticulosis of large intestine without perforation or abscess without bleeding (principal); I71.43 Infrarenal abdominal aortic aneurysm, without rupture; Z90.49 Acquired absence of other specified parts of digestive tract | CPT/HCPCS: 74177 ==

== ENCOUNTER → 2025-01-14 14:10 | Outpatient (BNV) | payer MEDICARE, OTHER, SELFPAY | PROVIDERS: Admitting Provider Surgery; Emergency Provider Emergency Medicine; PCP Internal Medicine; Visit Provider Surgery | DX: G89.18 Other acute postprocedural pain (principal) | CPT/HCPCS: 99232 ==

== ENCOUNTER → 2025-01-14 14:10 | Outpatient (BNV) | payer MEDICARE, OTHER, SELFPAY | PROVIDERS: Admitting Provider Surgery; Emergency Provider Emergency Medicine; PCP Internal Medicine; Visit Provider Nurse Practitioner Acute Care | DX: K80.20 Calculus of gallbladder without cholecystitis without obstruction (principal) | CPT/HCPCS: 99499 ==

== ENCOUNTER 2025-01-20 08:03 | Outpatient (REF) | payer MEDICARE, OTHER, SELFPAY ==
--- NOTE | ~2025-01-20 | US_ITS ---
CLINICAL HISTORY: Bile Leak US abdomen limited Comparison: CT/[place]/SR - CT ABDOMEN PELVIS WITH IV CONTRAST - 01/14/25 13:06 EST Findings: The pancreas is unremarkable. Abdominal aorta and IVC are not seen. The liver is normal in size and echogenicity, no discrete lesion is visualized in the imaged liver. No bile duct dilatation. Common duct 4 mm diameter. Status post cholecystectomy, hypoechoic fluid collection contains punctate echogenic focus likely air in the gallbladder fossa, not measured by the soccer referee, roughly 2.5 x 2.7 x 3.7 cm on the submitted images. Main portal vein shows antegrade flow. Right kidney normal, 9.7 cm in length. Impression: Status post cholecystectomy, complex fluid collection contains air focus in the gallbladder fossa, similar when compared to recent CT and better seen on prior CT, please refer to that report for details. This document has been electronically signed by: Maria Elena Lundy MD on 01/20/2025 11:12:32
--- OUTSIDE RECORDS SUMMARY | 2025-01-20 08:08 | XMS_ITS | Encounter Summary ---
Author Organization [facility] Address [address] [facility] [address] [place] [address] Phone Care Team Providers Care Graphic Design Intern Name Role Phone Lindy Buckner MD Primary Care Provider Encounter Details Date Type Department Care Team (Late st Contact Info) Description 08/10/2022 Procedure Pass [facility] Endoscopy Admitting Dept Virtual Department [address] [place] [address] Social History Tobacco Use Types Packs/Day Years [...] on filedocumented in this encounter Care Teams Graphic Design Intern Relationship Specialty Start Date End Date Lindy Buckner MD [address] [place] [address] PCP - General Internal Medicine 06/09/22 documented as of this encounter Additional Source Comments The information contained in this document represents components of the legal health record. It is not the complete legal health record.[facility]
--- OUTSIDE RECORDS SUMMARY | 2025-01-20 08:08 | XMS_ITS | Encounter Summary ---
Author Organization [facility] Address [address] [facility] [address] [place] [address] Phone Care Team Providers Care Precision Agriculture Technician Name Role Phone Lindy Buckner MD Primary Care Provider Encounter Details Date Type Department Care Team (Late st Contact Info) Description 04/13/2023 Procedure Pass [facility] Endoscopy Admitting Dept Virtual Department [address] [place] [address] Social History Tobacco Use Types Packs/Day Years [...] on filedocumented in this encounter Care Teams Precision Agriculture Technician Relationship Specialty Start Date End Date Lindy Buckner MD [address] [place] [address] PCP - General Internal Medicine 06/09/22 documented as of this encounter Additional Source Comments The information contained in this document represents components of the legal health record. It is not the complete legal health record.[facility]
--- OUTSIDE RECORDS SUMMARY | 2025-01-20 08:08 | XMS_ITS | Clinical Summary ---
Author Organization [facility] Address [address] [facility] [address] [place] [address] Phone Care Team Providers Care Varnishing Unit Tool Setter Name Role Phone Lindy Buckner MD [...] this topic Medical Devices Implanted Type Area Support Services Manager Device Identifier Shelf Expiration Date Model [...] Most Recently Relevant to Health Maintenance Insurance [facility] Care Teams Varnishing Unit Tool Setter Relationship Specialty Start Date End Date Lindy Buckner MD [address] [place] [address] PCP - General Internal Medicine 06/09/22 Additional Source Comments The information contained in this document represents components of the legal health record. It is not the complete legal health record.[facility]
--- OUTSIDE RECORDS SUMMARY | 2025-01-20 08:08 | XMS_ITS | Encounter Summary ---
Author Organization [facility] Address [address] [place] [address] Phone Care Team Providers Care Manager Of Organizational Development Name Role Phone Lindy Buckner MD Primary Care Provider Encounter Details Date Type Department Care Team (Late st Contact Info) Description 06/09/2022 Procedure Pass [facility] Endoscopy Admitting Dept Virtual Department [address] [place] [address] Social History Tobacco Use Types Packs/Day Years [...] on filedocumented in this encounter Care Teams Manager Of Organizational Development Relationship Specialty Start Date End Date Lindy Buckner MD [address] [place] [address] PCP - General Internal Medicine 06/09/22 documented as of this encounter Additional Source Comments The information contained in this document represents components of the legal health record. It is not the complete legal health record.[facility]
--- OUTSIDE RECORDS SUMMARY | 2025-01-20 08:08 | XMS_ITS | Data Portability ---
Author Organization [place] [facility] Address [address] [place] [address] Care Team Providers Care Intranet Support Name Role Phone EMMANUEL COPELAND Primary Care [...] 15 mg tablet 2024 025 [email or web address] [id number], [address] [place], [address], 5 10:49:41 Patient TargetsNo targets recorded. 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 Procedures Surgical History Date Name Laterality Status Provider Name and Address Organization Details Recorded Time 5 JZShoulder INJ completed Chad Hunter PA-C [address], [place], [address], [facility] 07/23/2024 07:40:15 5 JZShoulder INJ completed Chad Hunter PA-C [address], [place], [address], [facility] 04/23/2024 08:51:15 4 JZShoulder INJ completed Chad Hunter PA-C [address], [place], [address], [facility] 01/23/2024 08:52:21 4 JZShoulder INJ completed Chad Hunter PA-C [address] [facility], [place], [address], [facility] 10/24/2023 08:54:24 4 JZCMC Inj completed Chad Hunter PA-C [address] [facility], [place], [address], [facility] 10/24/2023 08:54:34 4 JZShoulder INJ completed Chad Hunter PA-C [address] [facility], [place], [address], [facility] 07/26/2023 13:08:59 Imaging [...] Updated DateTime 04/23/2024 177.8 cm 23.7 kg/m2 14128.74 g [facility] 04/23/2024 08:28:45 Date Recorded Body height Body mass index (BMI) Body weight Provider Name and Address Organization Details Last Updated DateTime 07/23/2024 177.8 cm 23.7 kg/m2 40010.74 g [facility] 07/23/2024 07:27:11 Date Recorded Body height Body mass index (BMI) Body weight Provider Name and Address Organization Details Last Updated DateTime 07/26/2023 177.8 cm 23.7 kg/m2 19195.74 g [facility] 07/26/2023 13:05:11 Date Recorded Body height Body mass index (BMI) Body weight Provider Name and Address Organization Details Last Updated DateTime 10/24/2023 177.8 cm 23.7 kg/m2 39586.74 g Bay[facility] 10/24/2023 08:48:57 Date Recorded Body height Body mass index (BMI) Body weight Provider Name and Address Organization Details Last Updated DateTime 01/23/2024 177.8 cm 23.7 kg/m2 76358.74 g Bayron Gaff[facility] 01/23/2024 08:49:29 Social History None recorded. Functional Status None recorded. Mental Status None recorded. Family History Nothing Reported. Medical History No medical history recorded. Past Encounters Encounter ID Performer Location Encounter Start Date Encounter Closed Date Diagnosis/Indication Diagnosis SNOMED-CT Code Diagnosis ICD10 Code Diagnosis IMO Codes Diagnosis Note [id number] GUERDA Dawson [address] [place] [address] 07/26/2023 12:43:37 08/20/2023 13:07:39 Impingement syndrome of left shoulder region 3814062031 79436 M75.42 [id number] GUERDA Dawson [address] [place] [address] 10/24/2023 08:42:15 11/19/2023 13:35:25 Impingement syndrome of left shoulder region 8053566954 63458 M75.42 Osteoarthr osis of the carpometacarpal joint of the thumb 59383321 M18.9 [id number] GUERDA Dawson [address] [place] [address] 01/23/2024 08:45:15 02/19/2024 07:48:29 Impingement syndrome of left shoulder region 6152509837 17203 M75.42 [id number] [facility] [address] [place] [address] 04/23/2024 08:18:47 05/09/2024 12:39:46 Impingement syndrome of left shoulder region 9870711560 37983 M75.42 [id number] GUERDA Dawson [facility] [place] [address] [place] [address] 07/23/2024 07:22:30 08/04/2024 13:32:23 Impingement syndrome of left shoulder region 5992838386 68478 M75.42 Health Concerns Section Related Observation LastModified by Organization Detai ls LastModified Time None Recorded Concern Status LastModified by Organization Details LastModified Time None Recorded Advance Directives Directive None Recorded Payers Insurance Date Sequence Insurance Name Policy Number Policy Eckert Covered Member ID Eckert Member ID Guarantor Name 07/20/2024 1 [place] [employer] Mikal Elizondo [id number] Mikal Elizondo 08/04/2024 2 [employer] (POS) [id number] Mikal Elizondo [id number] Mikal Elizondo 09/07/2023 2 UNSPECIFIED REMIT PAYOR Mikal Elizondo
--- OUTSIDE RECORDS SUMMARY | 2025-01-20 08:08 | XMS_ITS | Encounter Summary ---
Author Organization [facility] Address [address] [facility] [address] [place] [address] Phone Care Team Providers Care Stove Carriage Operator Name Role Phone Lindy Buckner MD Primary Care Provider Encounter Details Date Type Department Care Team (Late st Contact Info) Description 03/02/2023 Procedure Pass [facility]oscopy Admitting Dept Virtual Department [address] [place] [address] Social History Tobacco Use Types Packs/Day Years [...] on filedocumented in this encounter Care Teams Stove Carriage Operator Relationship Specialty Start Date End Date Lindy Buckner MD [address] [place] [address] PCP - General Internal Medicine 06/09/22 documented as of this encounter Additional Source Comments The information contained in this document represents components of the legal health record. It is not the complete legal health record.[facility]
== END 2025-01-20 08:04 | disposition home or self-care (01) ==
LOC: HO.US 08:03
PROVIDERS: PCP Internal Medicine; Visit Provider Internal Medicine
DX: K83.9 Disease of biliary tract, unspecified (principal)
CPT/HCPCS: 76705

== ENCOUNTER → 2025-01-20 08:33 | Outpatient (BNV) | payer MEDICARE, OTHER, SELFPAY ==
--- NOTE | 2025-01-20 13:03 | ...WebTmpl.AM.PHNO ---
Nursing Note Patient had an ultrasound today showing similar fluid collection in the gallbladder fossa He admits to pain in the area again He had pulled out his IR drain inadvertently last week I told him that I have scheduled him to have another IR drain placed tomorrow I have discussed this with the Radiology Department They will call him for instructions tomorrow He says that he he is comfortable with the plan He states that he does not have any fever he is tolerating oral intake Depending on drain output, he may benefit from ERCP
== END ==
PROVIDERS: PCP Internal Medicine; Visit Provider Radiology Diagnostic Radiology
DX: K91.5 Postcholecystectomy syndrome (principal)
CPT/HCPCS: 76705

== ENCOUNTER 2025-01-21 12:40 | Day surgery (SDC) | payer MEDICARE, OTHER, SELFPAY ==
--- NOTE | ~2025-01-21 | CT_ITS ---
EXAMINATION: CT ABDOMEN WITHOUT CONTRAST CLINICAL INFORMATION: Follow up gallbladder fossa fluid/gas collection postcholecystectomy, Assess for Fluid collection for drain, PT had scan prior to drain, per Harrison not enough fluid for pt to have drain inserted COMPARISON: 01/14/2025 TECHNIQUE: Contiguous axial thin section helical images of the abdomen were performed without contrast. The data set was reformatted in the coronal and sagittal planes and reviewed on an independent workstation. This CT examination was performed using dose optimization techniques as appropriate, variously including the following: *Automated exposure control *Adjustment of mA and/or kV according to patient size (this includes techniques or standardized protocols for targeted exams where dose is matched to indication/reason for exam; i.e. extremities or head) *Use of iterative reconstruction technique FINDINGS: LUNG BASES: Unremarkable LIVER, GALLBLADDER, BILIARY TREE: The liver is unremarkable. There are clips in the gallbladder fossa. Fluid and gas collection within the gallbladder fossa measures 2.9 x 2.7 x 1.9 cm and previously measured 4.2 x 4.0 x 3.9 cm (AP by transverse by CC). PANCREAS: Unremarkable SPLEEN: Unremarkable ADRENAL GLANDS AND KIDNEYS: Unremarkable BOWEL LOOPS: Unremarkable LYMPH NODES: Normal. 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 BONES: Unremarkable CT/CT abdomen wo IV con IMPRESSION: Gallbladder fossa fluid/gas collection has decreased in size and now measures 2.9 x 2.7 x 1.9 centimeter. Postcholecystectomy collection could represent hematoma, seroma, biloma, or less likely abscess. Infrarenal abdominal aorta aneurysm post stent graft. Stable. Fleischner guidelines were followed. Electronically signed by: Mario Gonzales MD 01/21/2025 05:48 PM EST
[2025-01-21 13:13] VITALS: BMI 22.4
[2025-01-21 13:22] VITALS: BP 132/70; PULSE 97; RESP 16; TEMP 37; O2SAT 96
[2025-01-21 14:33] LABS: Glucose, Whole Blood 96 mg/dL (60-115)
[2025-01-21 15:30] VITALS: BP 154/71; PULSE 92; RESP 12; O2SAT 96
== END 2025-01-21 16:23 | disposition home or self-care (01) ==
LOC: HO.SSS 12:41
PROVIDERS: PCP Internal Medicine; Visit Provider Surgery
DX: K66.8 Other specified disorders of peritoneum (principal); Z53.8 Procedure and treatment not carried out for other reasons; K91.5 Postcholecystectomy syndrome; K91.89 Other postprocedural complications and disorders of digestive system; Z90.5 Acquired absence of kidney; Z90.49 Acquired absence of other specified parts of digestive tract; I71.40 Abdominal aortic aneurysm, without rupture, unspecified; Z95.828 Presence of other vascular implants and grafts; I10 Essential (primary) hypertension; E78.5 Hyperlipidemia, unspecified; J44.9 Chronic obstructive pulmonary disease, unspecified; Z87.891 Personal history of nicotine dependence
CPT/HCPCS: 74150; 82947; J2003; J3010

== ENCOUNTER → 2025-01-21 15:34 | Outpatient (BNV) | payer MEDICARE, OTHER, SELFPAY | PROVIDERS: PCP Internal Medicine; Visit Provider Radiology Diagnostic Radiology | DX: I71.43 Infrarenal abdominal aortic aneurysm, without rupture (principal) | CPT/HCPCS: 74150 ==

== ENCOUNTER 2025-01-23 13:06 | Outpatient (REF) | payer MEDICARE, OTHER, SELFPAY ==
[2025-01-23 13:12] LABS: MANUAL DIFF FLAG NO
[2025-01-23 13:27] LABS: Hematocrit 35.4 % (42.0-52.0); Hemoglobin 11.1 g/dl (14.0-18.0); Imm Gran Abs Auto 0.04 X10*3/uL (0.00-0.03); Imm Gran Pct Auto 0.3 % (0.0-0.4); Lymphocytes Absolute Auto 1.6 X10*3/uL (1.2-4.9); Mean Corpuscular HGB Conc 31.4 g/dl (31.0-36.0); Mean Corpuscular Hemoglobin 27.6 pg (27.0-33.0); Mean Corpuscular Volume 88.1 fL (80.0-98.0); NRBC Abs Auto 0.000 X10*3/uL (0.0-0.012); NRBC Pct Auto 0.0 /100WBC (0.0-0.2); Platelet Count 398 X10*3/uL (160-400); Red Blood Count 4.02 X10*6/uL (4.60-5.80); White Blood Count 12.0 X10*3/uL (4.8-10.8)
[2025-01-23 14:07] LABS: Erythrocyte Sedimentation Rate 87 MM/HR (0-15)
[2025-01-23 14:20] LABS: Alanine Aminotransferase 22 U/L (0-40); Albumin Level 4.1 g/dL (3.5-5.0); Alkaline Phosphatase 86 U/L (39-117); Anion Gap 14 (12-20); Aspartate Amino Transferase 23 U/L (5-37); Blood Urea Nitrogen 13 mg/dL (9-16); Calcium 9.3 mg/dL (8.4-10.2); Carbon Dioxide 24 mmol/L (22-29); Chloride 105 mmol/L (96-108); Estimated Glomerular Filt Rate 53; Magnesium 2.0 mg/dL (1.6-2.6); Potassium 4.0 mmol/L (3.3-5.1); Sodium 139 mmol/L (135-145); Total Protein 7.2 g/dL (6.5-8.0)
--- OUTSIDE RECORDS SUMMARY | 2025-01-23 17:17 | XMS_ITS | Encounter Summary ---
Author Organization [facility] Address [address] [facility] [address] [place] [phone] Phone Care Team Providers Care Tank Inspector Name Role Phone Lindy Buckner MD Primary Care Provider Encounter Details Date Type Department Care Team (Late st Contact Info) Description 08/10/2022 Procedure Pass [facility] Endoscopy Admitting Dept Virtual Department [address] [place] [address] Social History Tobacco Use Types Packs/Day Years [...] on filedocumented in this encounter Care Teams Tank Inspector Relationship Specialty Start Date End Date Lindy Buckner MD [address] [place] [address] PCP - General Internal Medicine 06/09/22 documented as of this encounter Additional Source Comments The information contained in this document represents components of the legal health record. It is not the complete legal health record.[facility]
--- OUTSIDE RECORDS SUMMARY | 2025-01-23 17:18 | XMS_ITS | Encounter Summary ---
Author Organization [facility] Address [address] [facility] [address] [place] [phone] Phone Care Team Providers Care Converting Supervisor Name Role Phone Lindy Buckner MD Primary Care Provider Encounter Details Date Type Department Care Team (Late st Contact Info) Description 04/13/2023 Procedure Pass [facility] Endoscopy Admitting Dept Virtual Department [address] [place] [address] Social History Tobacco Use Types Packs/Day Years [...] on filedocumented in this encounter Care Teams Converting Supervisor Relationship Specialty Start Date End Date Lindy Buckner MD [address] [place] [address] PCP - General Internal Medicine 06/09/22 documented as of this encounter Additional Source Comments The information contained in this document represents components of the legal health record. It is not the complete legal health record.[facility]
--- OUTSIDE RECORDS SUMMARY | 2025-01-23 17:18 | XMS_ITS | Encounter Summary ---
Author Organization [facility] Address [address] [facility] [address] [place] [phone] Phone Care Team Providers Care Tow Truck Dispatcher Name Role Phone Lindy Buckner MD Primary Care Provider Encounter Details Date Type Department Care Team (Late st Contact Info) Description 03/02/2023 Procedure Pass [facility] Endoscopy Admitting Dept Virtual Department [address] [place] [address] Social History Tobacco Use Types Packs/Day Years [...] on filedocumented in this encounter Care Teams Tow Truck Dispatcher Relationship Specialty Start Date End Date Lindy Buckner MD [address] [place] [address] PCP - General Internal Medicine 06/09/22 documented as of this encounter Additional Source Comments The information contained in this document represents components of the legal health record. It is not the complete legal health record.[facility]
--- OUTSIDE RECORDS SUMMARY | 2025-01-23 17:18 | XMS_ITS | Clinical Summary ---
Author Organization [facility] Address [address] [facility] [address] [place] [address] Phone Care Team Providers Care Document Specialist Name Role Phone Lindy Buckner MD [...] this topic Medical Devices Implanted Type Area Jailer Device Identifier Shelf Expiration Date Model / [...] Most Recently Relevant to Health Maintenance Insurance [facility] Care Teams Document Specialist Relationship Specialty Start Date End Date Lindy Buckner MD [address] [place] [address] PCP - General Internal Medicine 06/09/22 Additional Source Comments The information contained in this document represents components of the legal health record. It is not the complete legal health record.[facility]
--- OUTSIDE RECORDS SUMMARY | 2025-01-23 17:18 | XMS_ITS | Encounter Summary ---
Author Organization [facility] Address [address] [place] [phone] Phone Care Team Providers Care Supervisor Fish Bait Processing Name Role Phone Lindy Buckner MD Primary Care Provider Encounter Details Date Type Department Care Team (Late st Contact Info) Description 06/09/2022 Procedure Pass [facility] Endoscopy Admitting Dept Virtual Department [address] [place] [address] Social History Tobacco Use Types Packs/Day Years [...] on filedocumented in this encounter Care Teams Supervisor Fish Bait Processing Relationship Specialty Start Date End Date Lindy Buckner MD [address] [place] [address] PCP - General Internal Medicine 06/09/22 documented as of this encounter Additional Source Comments The information contained in this document represents components of the legal health record. It is not the complete legal health record.[facility]
== END 2025-01-23 13:07 | disposition home or self-care (01) ==
LOC: HO.LNP 13:06
PROVIDERS: Visit Provider Internal Medicine
DX: R10.9 Unspecified abdominal pain (principal)
CPT/HCPCS: 80053; 83735; 85025; 85652

== ENCOUNTER 2025-01-29 11:02 | Outpatient (AMB) | payer MEDICARE, OTHER, SELFPAY ==
--- OUTSIDE RECORDS SUMMARY | 2024-10-07 08:38 | XMS_ITS ---
Author Organization Kiko Coats MD Address [address] [place] [phone] Care Team Providers Care Coating Supervisor Name Role Phone Kiko Coats Primary Care Provider REASON FOR VISIT refill Medications Medication SIG (Take, Route, Frequency, Duration) Notes Start Date End Date Status RABEprazole Sodium 20 MG 1 tablet 1/2 to 1 hour before a meal Orally Once a day for 90 days 09/22/2024 Active Encounters Encounter Location Date Provider Diagnosis Kiko Coats MD [address] [place] [phone] 10/07/2024 Kiko Coats Plan Of Treatment Medication Medication Name Sig Start Date Stop Date Notes RABEprazole Sodium 20 MG 1 tablet 1/2 to 1 hour before a meal Orally Once a day for 90 days 09/22/2024 Next Appt Details Provider Name:Kiko De Leon ier, 01/30/2025 03:00:00 PM, [address] [place] [address], [address], [place], [place], [phone], Provider Name:Kiko De Leon ier, 05/14/2025 07:45:00 AM, [address] [place] [address], [address], [place], [phone], Provider Name:Kiko De Leon ier, 05/21/2025 09:00:00 AM, [address] [place] [address], Suite [facility], [place], [phone], Provider Name:Kiko De Leon ier, 12/10/2025 07:15:00 AM, [address] [place] [address], Suite [facility], [place], [phone], Provider Name:Kiko De Leon ier, 12/17/2025 09:30:00 AM, [address] [place] [address], Suite [facility], [place], [phone], Progress Notes * Mikal DENNYDOB: [birth year] (74 yo M)Acc No.[id number]:10/07/2024 Patient: Mikal VITALE :1950 A ge:74 Y S ex:Male Address:[address], [place] [address] * Refills Refill RABEprazole Sodium Tablet Delayed Release, 20 MG, Orally, 90, 1 tablet 1/2 to 1 hour before a meal, Once a day, 90 days, Refills=0 * true * Date: Generated for Maryam fontaine/Pamela/eTransmitting on: 1 04/01/2024 05:06 PM EST
--- OUTSIDE RECORDS SUMMARY | 2024-11-07 05:45 | XMS_ITS ---
Author Organization Kiko Coats MD Address [address] [place] [phone] Care Team Providers Care Vp Home Health Name Role Phone Kiko Coats Primary Care Provider REASON FOR VISIT RE: Annual Patient Experience Survey Encounters Encounter Location Date Provider Diagnosis Kiko Coats MD [address] [place] [address] [place] [phone] 11/07/2024 Kiko Coats Plan Of Treatment Next Appt Details Provider Name:Kiko chatman, 01/30/2025 03:00:00 PM, [address] [place] [address], [address], [phone], Provider Name:Kiko chatman, 05/14/2025 07:45:00 AM, [address] [place] [address], [address], [phone], Provider Name:Kiko De Leon ier, 05/21/2025 09:00:00 AM, [address], [address], [place], [place], [phone], Provider Name:Kiko De Leon ier, 12/10/2025 07:15:00 AM, [address], [address], [place], [place], [phone], Provider Name:Kiko De Leon ier, 12/17/2025 09:30:00 AM, [address] [place] [address] Drive, [address], [place], [place], [phone], Progress Notes * Mikal DENNYDOB: [birth year] (74 yo M)Acc No.[id number]:11/07/2024 Patient: Mikal VITALE :1950 A ge:74 Y S ex:Male Address:[address], [place] [address] * true * Date: Generated for Maryam fontaine/Pamela/eTransmitting on: 04/01/2024 05:06 PM EST
--- OUTSIDE RECORDS SUMMARY | 2024-11-13 03:00 | XMS_ITS ---
Author Organization Kiko Coats MD Address [address] [place], [place] [id number] Care Team Providers Care Senior Qa Automation Engineer Name Role Phone Jorge LTian Primary Care Provider Results Component Value Reference Range Notes Complete Blood Count Auto Di ff Reviewed date:11/13/2024 04:28:00 PM Interpretation: Performing Lab:[facility], [address] [place] [phone] Notes/Report: White Blood Count 9.2 4.8-10.8 X10*3/uL [...] NRBC Abs Auto 0.000 0.0-0.012 X10*3/uL Comprehensive [place]. Panel Fa st Reviewed date:11/13/2024 04:28:23 PM Interpretation: Performing Lab:[facility], [address] [place] [phone] Notes/Report: Sodium 142 135-145 mmol/L Potassium 3.9 [...] PROFILE Reviewed date:11/13/2024 04:19:48 PM Interpretation: Performing Lab:[facility], [address] [place] [phone] Notes/Report: Iron 63 45-160 mcg/dL Total Iron Binding Capacity 244 228-428 mcg/d L Percent Iron Saturation 26 15-50 % Unsaturated Iron Binding 181 Lipid Panel Reviewed date:11/13/2024 04:24:20 PM Interpretation: Performing Lab:[facility], [address] [place] [phone] Notes/Report: Triglycerides 283 <150 mg/dL Desirable Triglyceride: [...] (Free>4and<10) Reviewed date:11/13/2024 04:24:30 PM Interpretation: Performing Lab:[address] [phone] Notes/Report: PSA,Total (Free>4and<10) < 0.10 0.00-4.00 ng/mL [...] Random Reviewed date:11/13/2024 04:25:27 PM Interpretation: Performing Lab:[address] [phone] Notes/Report: Creatinine Urine 70.25 Microalbumin Urine 79.0 Microalbum/Creatinine Ratio Ur 112.4 <30 ug/mg cr Albumin/Creatinine Ratio Reference Ranges: Normal: < 30 ug/mg creatinine Microalbuminuria: 30 - 300 ug/mg creatinine Clinical Albuminuria: > 300 ug/mg creatinine Hemoglobin A1c Reviewed date:11/13/2024 04:19:36 PM Interpretation: Performing Lab:[address] [phone] Notes/Report: Hemoglobin A1c % 6.3 <6.0 % [...] average glucose, using the formula of the M7Y-Fkbofif Average Glucose study (ADAG), Diabetes Care, Vol.31,#8, Sep. 2007 UA ClnCatch+Micro w/rflx Cul t Reviewed date:11/13/2024 04:28:44 PM Interpretation: Performing Lab:[address] [phone] Notes/Report: [id number] 0800 Urine, Clean Catch Color Urine Yellow Appearance Urine Clear PH 7.0 5.0-9.0 Glucose Urine UA >=1000 Negative mg/dL Urine Blood Negative Negative Specific [place] - Urine 1.010 1.005-1.025 Urine Protein Trace [...] Date Provider Diagnosis Kiko Coats MD [address] [place] [phone] 11/13/2024 Kiko Coats Type 2 diabetes mellitus [...] Details Provider Name:Kiko chatman, 01/30/2025 03:00:00 PM, [address] [place] [address], [phone], Provider Name:Kiko chatman, 05/14/2025 07:45:00 AM, [address] [place] [address], [address], [phone], Provider Name:Kiko chatman, 05/21/2025 09:00:00 AM, [address] [place] [address], [phone], Provider Name:Kiko chatman, 12/10/2025 07:15:00 AM, [address] [place] [address], [phone], Provider Name:Kiko De Leon ier, 12/17/2025 09:30:00 AM, [address], [address], [place], [phone], Progress Notes * Mikal DENNYDOB: [birth year] (74 yo M)Acc No.[id number]:11/13/2024 Progress Note Patient: Mikal VITALE Provider: La Coats MD :1950 A ge:74 Y S ex:Male Date:11/13/2024 Address:[address], [id number] Subjective: * Chief Complaints: * 1 . [...] - 11/13/2024 08:00 AM) L AB: Comprehensive [place]. Panel Fast (Collection Date & Time - [...] - 11/13/2024 08:00 AM) L AB: Comprehensive [place]. Panel Fast (Collection Date & Time - [...] - 11/13/2024 08:00 AM) L AB: Comprehensive [place]. Panel Fast (Collection Date & Time - [...] - 11/13/2024 08:00 AM) L AB: Comprehensive [place]. Panel Fast (Collection Date & Time - [...] * Procedure Codes: 3 6415 VENIPUNCT, ROUTINE*, 77259 FLU VACC PRSV FREE INC ANTIG, G0008 [...] 11/13/2024 Generated for Maryam fontaine/Pamela/Tishitting on: 1 04/01/2024 05:04 PM EST
--- OUTSIDE RECORDS SUMMARY | 2024-11-17 05:30 | XMS_ITS ---
Author Organization Kiko Coats MD Address [address] [place], [place] [phone] Care Team Providers Care Radio Tester Name Role Phone Kiko Coats Primary Care [...] kg/m2 11/17/2024 weight is down 3 pounds [facility] 08-04-24 Encounters Encounter Location Date Provider Diagnosis Kiko Coats MD [address] [place] [address] [place] [phone] 11/17/2024 Kiko Coats Panlobular emphysema J43.1 ; [...] 30 days Ketoconazole 2 % 1 application Supervisor Rod Placing ally Once a day for 30 days [...] Up: 6 Months, Reason: Provider Name:Kiko chatman, 01/30/2025 03:00:00 PM, [address] [place] [address], [address], [place], [phone], Provider Name:Kiko chatman, 05/14/2025 07:45:00 AM, [address] [place] [address], [address], [place], [phone], Provider Name:Kiko chatman, 05/21/2025 09:00:00 AM, [address], [address], [place], [place], [phone], Provider Name:Kiko De Leon ier, 12/10/2025 07:15:00 AM, [address], [address], [place], [place], [phone], Provider Name:Kiko De Leon ier, 12/17/2025 09:30:00 AM, [address], [address], [place], [phone], Progress Notes * Mikal DENNYDOB: [birth year] (74 yo M)Acc No.[id number]:11/17/2024 Patient: Mikal VITALE Provider: La Coats MD :1950 A ge:74 Y S ex:Male Date:11/17/2024 Address:[address], [place] Subjective: * Chief Complaints: * R eview [...] Average Glucose 134 - mg/dL L ab:Comprehensive [place]. Panel Fast (Order Date - 11/13/2024) (Collection [...] Sign off status: Completed true * Provider: aL Coats MD Date: 0 11/17/2024 Generated for Maryam fontaine/Pamela/Veronikaransmitting on: 1 04/01/2024 05:03 PM EST History and Physical Notes * [...]
--- OUTSIDE RECORDS SUMMARY | 2024-12-12 06:45 | XMS_ITS ---
Author Organization Kiko Coats MD Address [address] [place], [place] [phone] Care Team Providers Care Batterboard Setter Name Role Phone Kiko Coats Primary [...] Status W/U Status Risk Notes Problem Gallstone ([id number]) Gall stones (K80.20) Active confirmed Vital Signs Blood pressure systolic 124 mm Hg 12/13/19 25 Blood pressure diastolic 60 mm Hg 025 Height 70 in 12/12/2024 Weight 168 lbs 12/12/2024 BMI 24.1 kg/m2 12/12/2024 weight is down 5 pounds [facility] e 11-17-24 Encounters Encounter Location Date Provider Diagnosis Kiko Coats MD [address] [place] [address] [place] [phone] 12/12/2024 Kiko Coats Gall stones K80.20 Assessments Encounter Date Diagnosis (ICD Code) Assessment Notes Treatment Notes Treatment Clinical Notes Section Notes 12/12/2024 Gall stones (ICD-10 - K80.20) order faxed to [facility] cs dept Plan Of Treatment Treatment Notes Assessment Notes Gall stones order faxed to [facility] s dept Pending Test Test Name Order Date US ABD 12/12/2024 Next Appt Details Follow Up: after us, Reason: Provider Name:Kiko chatman, 01/30/2025 03:00:00 PM, [address] [place] [address], [address], [phone], Provider Name:Kiko chatman, 05/14/2025 07:45:00 AM, [address] [place] [address], [address], [phone], Provider Name:Kiko De Leon ier, 05/21/2025 09:00:00 AM, [address] [place] [address], [address], [phone], Provider Name:Kiko chatman, 12/10/2025 07:15:00 AM, [address] [place] [address], [address], [phone], Provider Name:Kiko chatman, 12/17/2025 09:30:00 AM, [address] [place] [address], [address], [phone], Progress Notes * Mikal DENNYDOB: [birth year] (74 yo M)Acc No.[id number]:12/12/2024 Progress Notes Patient: Mikal VITALE Provider: La Coats MD :1950 A ge:74 Y S ex:Male Date:12/12/2024 Address:[address], [place], [id number] Subjective: * Chief Complaints: * S TOMACH [...] MD Date: Generated for Maryam fontaine/Pamela/Travis on: 04/01/2024 05:05 PM EST History and Physical Notes * Examination Category Sub-Category Detail Notes Category Not es General Examination GENERAL APPEARANCE: alert, w ell hydrated, in no distress ABDOMEN: no hepatosplenomegal y, no hepatosplenomegaly, abnormal with tender ruq.
--- OUTSIDE RECORDS SUMMARY | 2024-12-25 04:58 | XMS_ITS ---
Author Organization Kiko Coats MD Address [address] [place] [phone] Care Team Providers Care Fuel Cell Repairer Name Role Phone Jorge L Kiko Primary Care Provider [phone] REASON FOR VISIT us abd result Encounters Encounter Location Date Provider Diagnosis Kiko Coats MD [address] [place] [address] [address] [place] [phone] 12/25/2024 Kiko Coats Plan Of Treatment Next Appt Details Provider Name:Kiko chatman, 01/30/2025 03:00:00 PM, [address] [place] [address], [address], [phone], Provider Name:Kiko chatman, 05/14/2025 07:45:00 AM, [address] [place] [address], [address], [phone], Provider Name:Kiko de la or, 05/21/2025 09:00:00 AM, [address], [address], [place], [place], [phone], Provider Name:Kiko De Leon ier, 12/10/2025 07:15:00 AM, [address] [place] [address], [address], [place], [place], [phone], Provider Name:Kiko De Leon ier, 12/17/2025 09:30:00 AM, [address] [place] [address], [address], [place], [place], [phone], Progress Notes * CELSAHAILEMikalDOB: [birth year] (74 yo M)Acc No.[id number]:12/25/2024 Patient: Mikal VITALE :1950 A ge:74 Y S ex:Male Address:[address], [place] [address] * true * Date: Generated for Maryam fontaine/Pamela/eTransmitting on: 04/01/2024 05:03 PM EST
--- OUTSIDE RECORDS SUMMARY | 2024-12-26 09:35 | XMS_ITS ---
Author Organization Kiko Coats MD Address [address] [place] [phone] Care Team Providers Care Roller Maker Name Role Phone Kiko Coats Primary Care Provider Encounters Encounter Location Date Provider Diagnosis Kiko Coats MD [address] [place] [address] [place] [phone] 12/26/2024 Kiko Coats Plan Of Treatment Next Appt Details Provider Name:Kiko De Leon ier, 01/30/2025 03:00:00 PM, [address] [place] [address], [place] [address], [place], [place], [phone], Provider Name:Kiko chatman, 05/14/2025 07:45:00 AM, [address] [place] [address], [place] [address], [place], [place], [phone], Provider Name:Kiko chatman, 05/21/2025 09:00:00 AM, [address], [address], [place], [place], [phone], Provider Name:Kiko De Leon ier, 12/10/2025 07:15:00 AM, [address] [place] [address], [address], [place], [place], [phone], Provider Name:Kiko De Leon ier, 12/17/2025 09:30:00 AM, [address] [place] [address], [address], [place], [place], [phone], Progress Notes * CELSAHAILEMikalDOB: [birth year] (74 yo M)Acc No.[id number]:12/26/2024 Patient: Mikal VITALE :1950 A ge:74 Y S ex:Male Address:[address], [place] [address] * true * Date: Generated for Maryam fontaine/Pamela/eTransmitting on: 04/01/2024 05:04 PM EST
--- OUTSIDE RECORDS SUMMARY | 2025-01-01 08:23 | XMS_ITS ---
Author Organization Kiko Coats MD Address [address] [place] [phone] Care Team Providers Care Stage Producer Name Role Phone Kiko Coats Primary Care Provider REASON FOR VISIT ER Encounters Encounter Location Date Provider Diagnosis Kiko Coats MD [address] [place] [address] [address] [place] [phone] 01/01/2025 Kiko Coats Plan Of Treatment Next Appt Details Provider Name:Kiko chatman, 01/30/2025 03:00:00 PM, [address] [place] [address], [address], [phone], Provider Name:Kiko chatman, 05/14/2025 07:45:00 AM, [address] [place] [address], [address], [phone], Provider Name:Kiko chatman, 05/21/2025 09:00:00 AM, [address], [address], [place], [place], [phone], Provider Name:Kiko De Leon jaironr, 12/10/2025 07:15:00 AM, [address] [place] [address], [address], [place], [place], [phone], Provider Name:Kiko De Leon ier, 12/17/2025 09:30:00 AM, [address] [place] [address], [address], [place], [place], [phone], Progress Notes * Mikal DENNYDOB: [birth year] (74 yo M)Acc No.[id number]:01/01/2025 Patient: Mikal VITALE :1950 A ge:74 Y S ex:Male Address:[address], [place] [address] * true * Date: Generated for Maryam fontaine/Pamela/eTransmitting on: 04/01/2024 05:02 PM EST
--- OUTSIDE RECORDS SUMMARY | 2025-01-19 06:45 | XMS_ITS ---
Author Organization Kiko Coats MD Address [address] [place], [place] [id number] Care Team Providers Care Administrative Personal Assistant Name Role Phone Kiko Coats Primary Care Provider [phone] Allergies No Known Allergies Results Component Value Reference Range Notes US abdomen limited Reviewed date:01/20/2025 02:34:16 PM Interpretation: Performing Lab: Notes/Report: [address] [address] Ultrasound Report Signed Patient: Mikal Denny MR#: [id number] : 1950 Acct:[id number] Age/Sex: 74 / M ADM Date: 01/20/25 Loc: HO.US Attending Dr: Kiko Coats MD Ordering Physician: Kiko Coats MD Date of Service: 01/20/25 Procedure(s): US abdomen limited Accession Number(s): [id number] cc: Kiko Coats MD Reason for Exam: Bile Leak CLINICAL HISTORY: Bile Leak US abdomen limited Comparison: CT/SD/SR - CT ABDOMEN PELVIS WITH IV CONTRAST - 01/14/25 13:06 EST Findings: The pancreas is unremarkable. Abdominal aorta and IVC are not seen. The liver is normal in size and echogenicity, no discrete lesion is visualized in the imaged liver. No bile duct dilatation. Common duct 4 mm diameter. Status post cholecystectomy, hypoechoic fluid collection contains punctate echogenic focus likely air in the gallbladder fossa, not measured by the auricular detoxification specialist, roughly 2.5 x 2.7 x 3.7 cm on the submitted images. Main portal vein shows antegrade flow. Right kidney normal, 9.7 cm in length. Impression: Status post cholecystectomy, complex fluid collection contains air focus in the gallbladder fossa, similar when compared to recent CT and better seen on prior CT, please refer to that report for details. This document has been electronically signed by: Maria Elena Lundy MD on 01/20/2025 11:12:32 Dictated By: Maria Elena Lundy MD Signed By: <Electronically signed by Maria Elena Lundy MD in OV> 01/20/25 1113 DD/ 1112 TD/TT: 01/20/25 1112 Thermal Surfacing Machine Operator: [place] [id number] Ultrasound Report Signed Patient: Yadira Denny MR#: [id number] : 1950 Acct:[id number] Age/Sex: 74 / M ADM Date: 01/20/25 Loc: HO.US Attending Dr: Kiko Coats MD Ordering Physician: Kiko Coats MD Date of Service: 01/20/25 Procedure(s): US abd omen limited Accession Number(s): [id number] cc: Kiko Coats MD Reason for Exam: Bile Leak CLINICAL HISTORY: Bile Leak US abdomen limited Comparison: CT/SD/SR - CT ABDOMEN PELVIS WITH IV CONTRAST - 01/14/25 13:06 EST Findings: The pancreas is unremarkable. Abdominal aorta and IVC are not seen. The liver is normal in size and echogenicity, no discrete lesion is visualized in the imaged liver. No bile duct dilatat ion. Common duct 4 mm diameter. Status post cholecys tectomy, hypoechoic fluid collection contains punctate echogenic focus like ly air in the gallbladder fossa, not measured by the auricular detoxification specialist, roughly 2.5 x 2.7 x 3.7 cm on the submitted images. Main portal vein guido ws antegrade flow. Right kidney normal, 9.7 cm in length. Impression: Status post cholecys tectomy, complex fluid collection contains air focus in the gallbladder f breezy, similar when compared to recent CT and better seen on prior CT, pl ease refer to that report for details. This document has be en electronically signed by: Maria Elena Lundy MD on 01/20/2025 11:12:32 Dictated By: Maria Elena Lundy MD Signed By: <Jania icallcalvin signed by Maria Elena Lundy MD in OV> 01/20/25 1113 DD/ 1112 TD/TT: 01/20/25 1112 Thermal Surfacing Machine Operator: REASON FOR VISIT must see, Accompanied buy Medications Medication SIG (Take, Route, Frequency, Duration) Notes Start Date End Date Status Multi Vitamin Daily - 1 tablet Orally On ce a day for 30 day(s) Active Triamcinolone Acetonide 0.5 % 1 application Externally Once a day for 14 days 11/15/2020 Active Cialis 20 MG 1 tablet Orally Once a day Active Meloxicam 15 MG TAKE 1 TABLET BY DEBORAH TH ONCE A DAY AFTER A MEAL for 30 Active Aspir-81 81 MG 1 tablet Orally Once a day for 30 day(s) Active Betamethasone Dipropionate 0.05 % as directed Externally daily for 30 days 02/10/2011 Not-Taking PreserVision AREDS 2 - as directed Orally Active valACYclovir HCl 1 GM TAKE 2 TABLETS BY MOUTH EVERY 12 HOURS for 3 Not-Taking Hydrocod Pravin-Chlorphe Pravin ER 10-8 MG/5ML 5 mL as needed Orally every 12 hrs as needed for 10 days 04/26/2023 Not-Taking Qvar RediHaler 80 MCG/ACT TAKE 1 PUFF BY MOUTH TWICE A DAY Not-Taking RABEprazole Sodium 20 MG TAKE 1 TABLET B Y MOUTH ONCE DAILY 30 TO 60 MINUTES BEFORE A MEAL. for 90 Active traMADol HCl 50 MG 2 tabs as needed Ora lly Once a day for 30 days 07/24/2024 Not-Takin g traMADol HCl 100 MG 1 tablet as needed Orally every 8 hours as needed 03/06/2024 Not-Taking Stiolto Respimat 2.5-2.5 MCG/ACT INHALE 2 PUFFS INTO THE LUNGS ONCE DAILY Not-Taking Sucralfate 1 GM 1 tablet on an empty stomach Orally 4 times a day for 30 days 09/22/2024 Not-Taking Vitamin C 500 MG as directed Orally Active Levalbuterol Tartrate 45 MCG/ACT INHALE 2 PUFFS NEEDED EVERY 4 HOURS FOR 30 DAYS INHALATION EVERY 6 HRS Active amLODIPine Besylate 5 MG TAKE 1 TABLET B Y MOUTH ONCE A DAY FOR 30 DAY(S) Orally Once a day Active Carvedilol 25 MG 1 tablet with food Orally Twice a day Active Jardiance 10 MG 1 tablet Orally Once a day Active Ketoconazole 2 % 1 application Externally Once a day for 30 days 11/17/2024 Active Ferrous Gluconate 324 (38 Fe) MG 1 tablet Orally once a day Active Ipratropium-Albuterol 0.5-2.5 (3) MG/3ML INHALE 1 VIAL EVERY 4 HOURS NEEDED INHALATION EVERY 6 HRS 30 DAYS Inhalation every 6 hrs for 30 days Active Atorvastatin Calcium 40 MG TAKE 1 TABLET BY MOUTH EVERY DAY Active Problems Problem Type SNOMED Code ICD Code Onset Dates Problem Status W/U Status Risk Notes Problem Disorder of biliary tract (650103987) Bile leak (K83.9) Active confirmed Vital Signs Blood pressure systolic 130 mm Hg 01/20/20 25 Blood pressure diastolic 80 mm Hg 025 Height 70 in 01/19/2025 Weight 157 lbs 01/19/2025 BMI 22.52 kg/m2 01/19/2025 weight is down 11 pounds [facility] 10-24-25 Encounters Encounter Location Date Provider Diagnosis Kkio Coats MD [address] [place] [address] [place] [phone] 01/19/2025 Kiko Coats Bile leak K83.9 Assessments Encounter Date Diagnosis (ICD Code) Assessment Notes Treatment Notes Treatment Clinical Notes Section Notes 01/19/2025 Bile leak (ICD-10 - K83.9) pending diagnostic testing Total time spent on the date of the encounter is 35 minutes including both face to face time spent and time spent reviewing documentation, pertinent lab data, studies and counseling the patient. Plan Of Treatment Treatment Notes Assessment Notes Bile leak pending diagnostic t esting Total time spent on the date of the encounter is 35 minutes including both face to face time spent and time spent reviewing documentation, pertinent lab data, studies and counseling the patient. Next Appt Details Follow Up: sunday, Reason: Provider Name:Kiko Pavel Moises ier, 01/30/2025 03:00:00 PM, [address] [place] [address], [address] [place] [address], [phone], Provider Name:Kiko Zhao Moises ier, 05/14/2025 07:45:00 AM, [address] [place] [address], Suite [facility], [place], [place], [phone], Provider Name:Kiko Zhao Moises de [place], 05/21/2025 09:00:00 AM, [address] [place] [address], [address], [phone], Provider Name:Kiko Zhao Jakecalli jaironr, 12/10/2025 07:15:00 AM, [address] [place] [address], [place] [address], [place], [place], [phone], Provider Name:Kiko De Leon ier, 12/17/2025 09:30:00 AM, [address] [place] [address], [place] [address], [place], [place], [phone], Progress Notes * Mikal DENNYDOB: [birth year] (74 yo M)Acc No.[id number]:01/19/2025 Patient: Mikal VITALE Provider: La Coats MD :1950 A ge:74 Y S ex:Male Date:01/19/2025 Address:[address], [id number] Subjective: * Chief Complaints: * M ust seeAccompanied buy * HPI: S ymptom(s): patient is a 74 yo male here for follow up from recent hospitalization, discharge summary has larry reviewed and medication reconcilled, had accidentally pulled drain out when he was in hospital. * ROS: G eneral/Constitutional: Denies C hills. D enies F atigue. D enies F ever. D enies H eadache. E NT: Denies S ore throat. R espiratory: Denies C ough. D enies S hortness of breath at rest. D enies S hortness of breath with exertion. G astrointestinal: Admits A bdominal pain. D enies B lood in stool.?Denies C onstipation. D enies D iarrhea. D enies N ausea. * [...] Tablet 1 tablet Orally Once a day Meloxicam 15 MG [...] C 500 MG Capsule as directed Orally RABEprazole Sodium 20 MG Tablet Delayed Release TAKE 1 TABLET BY MOUTH ONCE DAILY 30 TO 60 MINUTES BEFORE A MEAL. Taking PreserVision AREDS 2 - Capsule as directed Orally Taking Aspir-81 81 MG Tablet Delayed Release 1 tablet Orally Once a day Taking Multi Vitamin Daily - Tablet 1 tablet Orally Once a day Taking Triamcinolone Acetonide 0.5 % Cream 1 application Externally Once a day Taking Cialis 20 MG Tablet 1 tablet Orally Once a day Taking Meloxicam 15 [...] 500 MG Capsule as directed Orally Taking RABEprazole Sodium 20 MG Tablet Delayed Release TAKE 1 TABLET BY MOUTH ONCE DAILY 30 TO 60 MINUTES BEFORE A MEAL. Not-Taking/PRNStiolto Respimat 2.5-2.5 MCG/ACT Aerosol Solution INHALE [...] as needed Not-Taking/PRN Hydrocod Pravin-Chlorphe Pravin ER 10-8 MG/5ML [...] Objective: * Vitals: H t: 70, Wt: 157, BMI:22.52, BP:130/80, Wt-k.21. weight is down 11 pounds since 12-12-24. * Examination: G eneral Examination: GENERAL APPEARANCE: w ell developed, well nourished. HEAD: n ormocephalic. HEART: n o murmurs, rubs, gallops, regular rate and rhythm.? LUNGS: n o wheezes, rales, rhonchi, good air movement, clear to auscultation bilaterally. ABDOMEN: a bnormal with tender abdomen. sutures from drain removed. Assessment: * Assessment: 1. B ile leak - K83.9 (Primary) Plan: * Treatment: Notes: pending diagnostic testing Total time spent on the date of the encounter is 35 minutes including both face to face time spent and time spent reviewing documentation, pertinent lab data, studies and counseling the patient.?? * Procedure Codes: * Follow Up: f riday * * Sign off status: Completed true * Provider: La Coats MD Date: 03/22/2024 Generated for Maryam fontaine/Pamela/eTransmitting on: 04/01/2024 05:05 PM EST History and Physical Notes * Examination Category Sub-Category Detail Notes Category Not es General Examination GENERAL APPEARANCE: well developed , well nourished HEAD: normocephalic HEART: no murmurs, rubs, ga llops, regular rate and rhythm LUNGS: no wheezes, rales, r honchi, good air movement, clear to auscultation bilaterally ABDOMEN: abnormal with tender abdomen. sutures from drain removed
--- OUTSIDE RECORDS SUMMARY | 2025-01-23 05:30 | XMS_ITS ---
Author Organization Kiko Coats MD Address [address] [place], [place] [id number] Care Team Providers Care Engineer Automated Equipment Name Role Phone Jorge LTian Primary Care Provider Allergies No Known Allergies Results Component Value Reference Range Notes Complete Blood Count Auto Di ff Reviewed date:01/23/2025 06:39:11 PM Interpretation: Performing Lab:[facility], [address] [place] [phone] Notes/Report: White Blood Count 12.0 4.8-10.8 X10*3/uL Red Blood Count 4.02 4.60-5.80 X10*6/uL Hemoglobin 11.1 14.0-18.0 g/dl Hematocrit 35.4 42.0-52.0 % Mean Corpuscular Volume 88.1 80.0-98.0 fL Mean Corpuscular Hemoglobin 27.6 27.0-33.0 pg Mean Corpuscular HGB Conc 31.4 31.0-36.0 g/dl Red Cell Distribution Width 15.3 11.0-16.0 % Platelet Count 398 160-400 X10*3/uL Mean Platelet Volume 11.4 9.4-12.4 fL Neutrophils Percent Auto 72.5 45-73 % Imm Gran Pct Auto 0.3 0.0-0.4 % Lymphocytes Percent Auto 13.6 20-40 % Monocytes Percent Auto 9.5 2-11 % Eosinophils Percent Auto 3.0 0-4 % Basophils Percent Auto 1.1 0-2 % NRBC Pct Auto 0.0 0.0-0.2 /100WBC Neutrophils Absolute Auto 8.7 2.0-8.3 x10*3/u L Imm Gran Abs Auto 0.04 0.00-0.03 X10*3/uL Lymphocytes Absolute Auto 1.6 1.2-4.9 X10*3/u L Monocytes Absolute Auto 1.1 0.1-1.2 X10*3/uL Eosinophils Absolute Auto 0.4 0.0-0.4 X10*3/u L Basophils Absolute Auto 0.1 0.0-0.2 X10*3/uL NRBC Abs Auto 0.000 0.0-0.012 X10*3/uL Erythrocyte Sedimentation Ra te Reviewed date:01/23/2025 06:38:02 PM Interpretation: Performing Lab:[facility], [address] [place] [phone] Notes/Report: Erythrocyte Sedimentation Rate 87 0-15 MM/HR Patients with polycythemia and many hemoglobin abnormalities may have depressed sed rates whereas patients with anemia may have elevated sed rates. Comprehensive [place]. Panel Fa st Reviewed date:01/23/2025 06:42:44 PM Interpretation: Performing Lab:[facility], [address] [place] [phone] Notes/Report: Sodium 139 135-145 mmol/L Potassium 4.0 3.3-5.1 mmol/L Chloride 105 96-108 mmol/L Carbon Dioxide 24 22-29 mmol/L Anion Gap 14 12-20 Blood Urea Nitrogen 13 9-16 mg/dL Creatinine 1.32 0.5-1.4 mg/dL Estimated Glomerular Filt Rate 53 Chronic Kidney Disease: Estimated GFR < 60 mL/min/1.73m2 Severe Kidney Disease: Estimated GFR < 15 mL/min/1.73m2 Glucose Fasting 126 60-99 mg/dL A fasting glucose of 126 mg/dl or greater on more than one occasion is considered diagnostic of diabetes. Calcium 9.3 8.4-10.2 mg/dL Bilirubin Total 0.4 0.0-1.0 mg/dL Aspartate Amino Transferase 23 5-37 U/L Alanine Aminotransferase 22 0-40 U/L Total Protein 7.2 6.5-8.0 g/dL Albumin Level 4.1 3.5-5.0 g/dL Alkaline Phosphatase 86 39-117 U/L Magnesium Reviewed date:01/23/2025 06:38:10 PM Interpretation: Performing Lab:[facility], [address] [place] [phone] Notes/Report: Magnesium 2.0 1.6-2.6 mg/dL REASON FOR VISIT must see, Accompanied by Medications Medication SIG (Take, Route, Frequency, Duration) [...] PUFFS INTO THE LUNGS ONCE DAILY Not-Taking RABEprazole Sodium 20 MG TAKE 1 TABLET B Y MOUTH ONCE DAILY 30 TO 60 MINUTES BEFORE A MEAL. for 90 Active Vitamin C 500 MG as directed Orally Active Carvedilol 25 MG 1 tablet with food Orally Twice a day Active amLODIPine Besylate 5 MG TAKE 1 TABLET B Y MOUTH ONCE A DAY FOR 30 DAY(S) Orally Once a day Active Jardiance 10 MG 1 tablet Orally Once a day Active Atorvastatin Calcium 40 MG TAKE 1 TABLET BY MOUTH EVERY DAY Active Levalbuterol Tartrate 45 MCG/ACT INHALE 2 PUFFS NEEDED EVERY 4 HOURS FOR 30 DAYS INHALATION EVERY 6 HRS Active Ferrous Gluconate 324 (38 Fe) MG 1 tablet Orally once a day Active Ketoconazole 2 % 1 application Externally Once a day for 30 days 11/17/2024 Active Ipratropium-Albuterol 0.5-2.5 (3) MG/3ML INHALE 1 VIAL EVERY 4 HOURS NEEDED INHALATION EVERY 6 HRS 30 DAYS Inhalation every 6 hrs for 30 days Active Meloxicam 15 MG TAKE 1 TABLET BY DEBORAH TH ONCE A DAY AFTER A MEAL for 30 Active Cialis 20 MG 1 tablet Orally [...] ce a day for 30 day(s) Active traMADol HCl 100 MG 1 tablet as needed Orally every 8 hours as needed 03/06/2024 Not-Taking valACYclovir HCl 1 GM TAKE 2 TABLETS BY MOUTH EVERY 12 HOURS for 3 Not-Taking Qvar RediHaler 80 MCG/ACT TAKE 1 PUFF BY MOUTH TWICE A DAY Not-Taking Hydrocod Pravin-Chlorphe Pravin ER 10-8 MG/5ML 5 mL as needed Orally every 12 hrs as needed for 10 days 04/26/2023 Not-Taking Vital Signs Blood pressure systolic 122 mm Hg 01/24/20 25 Blood pressure diastolic 68 mm Hg 025 Height 70 in 01/23/2025 Weight 153 lbs 01/23/2025 BMI 21.95 kg/m2 01/23/2025 weight is down 4 pounds [facility] [id number] Encounters Encounter Location Date Provider Diagnosis Kiko Coats MD [address] [place] [address] [place] [phone] 01/23/2025 Kiko Coats Abdominal pain R10.9 and Weight loss R63.4 Assessments Encounter Date Diagnosis (ICD Code) Assessment Notes Treatment Notes Treatment Clinical Notes Section Notes 01/23/2025 Abdominal pain (ICD-10 - R10.9) Total time spent on the date of the encounter is 35 minutes including both face to face time spent and time spent reviewing documentation, pertinent lab data, studies and counseling the patient. 01/23/2025 Weight loss (ICD-10 - R63.4) 01/23/2025 Other patient will be seeing Dr. Mosher 01-29-25 at 11:15am Plan Of Treatment Treatment Notes Assessment Notes Abdominal pain Total time spent on the date of the encounter is 35 minutes including both face to face time spent and time spent reviewing documentation, pertinent lab data, studies and counseling the patient. Other patient will be elizabeth Mosher 01-29-25 at 11:15am Pending Test Test Name Order Date AMYLASE 01/23/2025 Lipase 01/23/2025 Next Appt Details Follow Up: 1 Week, Reason: Provider Name:Kiko de la or, 01/30/2025 03:00:00 PM, [address] [place] [address], [address], [phone], Provider Name:Kiko de la or, 05/14/2025 07:45:00 AM, [address] [place] [address], [address], [phone], Provider Name:Kiko de la or, 05/21/2025 09:00:00 AM, [address] [place] [address], [address], [phone], Provider Name:Kiko De Leon ier, 12/10/2025 07:15:00 AM, [address] [place] [address], [address], [phone], Provider Name:Kiko de la or, 12/17/2025 09:30:00 AM, [address] [place] [address], [address], [phone], Progress Notes * Mikal DENNYDOB: [birth year] (74 yo M)Acc No.[id number]:01/23/2025 Patient: Mikal VITALE Provider: La Coats MD :1950 A ge:74 Y S ex:Male Date:01/23/2025 Address:[address], [id number] Subjective: * Chief Complaints: * 1 . Must see. 2. Accompanied by . * HPI: S ymptom(s): patient is a 74 yo male here for follow up visit/ not able to eat as gets cramps. seeing surgeon next week. * ROS: G eneral/Constitutional: Denies C hills. D enies F atigue. D enies F ever. D enies H eadache. E NT: Denies S ore throat. R espiratory: Denies C ough. D enies S hortness of breath at rest. D enies S hortness of breath with exertion. G astrointestinal: Denies D iarrhea. A dmits N ausea. * Medical History: E sophageal stricture, Hypercholesterolemia, Hypertension, Asthma - mild intermittent, Colonoscopy 02/2014 and upper endo [facility] done at the [place]. probably not able to access those records but will be followed by them. possibly someone in [facility] did it, Colonoscopy and endoscopy 2022. * Medications: T aking PreserVision AREDS 2 [...] tablet Orally Once a day , Taking Meloxicam 15 MG Tablet TAKE 1 TABLET BY MOUTH ONCE A DAY AFTER A MEAL , Taking Ipratropium-Albuterol 0.5-2.5 (3) MG/3ML Solution INHALE 1 VIAL EVERY 4 HOURS NEEDED INHALATION EVERY 6 HRS 30 DAYS Inhalation every 6 hrs , Taking Ketoconazole 2 % Cream 1 application Externally Once a day , Taking Ferrous Gluconate [...] food Orally Twice a day , Taking Levalbuterol Tartrate 45 MCG/ACT Aerosol INHALE 2 PUFFS NEEDED EVERY 4 HOURS FOR 30 DAYS INHALATION EVERY 6 HRS , Taking Vitamin C 500 MG Capsule as directed Orally , Taking RABEprazole Sodium 20 MG Tablet Delayed Release TAKE 1 TABLET BY MOUTH ONCE DAILY 30 TO 60 MINUTES BEFORE A MEAL. , Not- Taking/PRN Stiolto Respimat 2.5-2.5 MCG/ACT Aerosol Solution INHALE 2 PUFFS INTO THE LUNGS ONCE DAILY , Not-Taking/PRN Sucralfate 1 GM Tablet 1 tablet on an empty stomach Orally 4 times a day , Not-Taking/PRN traMADol HCl 50 MG Tablet 2 tabs as needed Orally Once a day , Not-Taking/PRN traMADol HCl 100 MG Tablet 1 tablet as needed Orally every 8 hours as needed , Not-Taking/PRN Hydrocod Pravin-Chlorphe Pravin ER 10-8 MG/5ML Suspension Extended Release 5 mL as needed Orally every 12 hrs as needed , Not-Taking/PRN Qvar RediHaler 80 MCG/ACT Aerosol Breath Activated TAKE 1 PUFF BY MOUTH TWICE A DAY , Not-Taking/PRN valACYclovir HCl 1 GM Tablet TAKE 2 TABLETS BY MOUTH EVERY 12 HOURS , Not-Taking/PRN Betamethasone Dipropionate 0.05 % Cream as directed Externally daily , Medication List reviewed and reconciled with the patient * Allergies: N .K.D.A. Objective: * Vitals: H t: 70, Wt: 153, BMI:21.95, BP:122/68, Wt-k.4. weight is down 4 pounds -1-47. * Examination: G eneral Examination: GENERAL APPEARANCE: a lert, well hydrated, in no distress.? HEAD: n ormocephalic. SKIN: g ood turgor. HEART: r egular rate and rhythm, no murmurs, rubs, gallops.? LUNGS: n o wheezes, rales, rhonchi, good air movement, clear to auscultation bilaterally. ABDOMEN: d iffuse tenderness but mostly in ruq. ? Assessment: * Assessment: 1. A bdominal pain - R10.9 (Primary) 2 . W eight loss - R63.4 ? Plan: * Treatment: 2. O thers Notes: patient will be seeing Dr. Mosher 01-29-25 at 11:15am * Procedure Codes: 3 6415 VENIPUNCT, ROUTINE* * Follow Up: 1 Week * * The named appointment provid er may or may not be the originator of this progress note, and it is not deemed complete until electronically signed by the appointment provider. Sign off status: Pending * Provider: La Coats MD Date: 03/26/2024 Generated for Maryam fontaine/Pamela/Tishitting on: 04/01/2024 05:04 PM EST History and Physical Notes * HPI (History of Present Illness) Category Sub-Category Detail Notes Category Not es Symptom(s) patient is a 74 yo male here for follow up visit/ not able to eat as gets cramps. seeing surgeon next week Examination Category Sub-Category Detail Notes Category Not es General Examination GENERAL APPEARANCE: alert, w ell hydrated, in no distress HEAD: normocephalic HEART: regular rate and rhy thm, no murmurs, rubs, gallops LUNGS: no wheezes, rales, r honchi, good air movement, clear to auscultation bilaterally ABDOMEN: diffuse tenderness b ut mostly in ruq SKIN: good turgor
--- NOTE | 2025-01-29 11:07 | A.OFFVIS_ITS ---
Vital Signs 01/29/25 11:12 Height 5 ft 10 in Weight 151 lb 6 oz BMI 21.7 BP 163/72 H Blood Pressure Location Lt brachial Position Sitting Pulse 97 Intake Visit Reasons: bile leak, needed soon per jessica ofc Intake Note: Pt was referred by Dr. Coats for an assessment for bile leak. Pt c/o; weight loss. Manager Of Financial Reporting Required: No Accompanied by: Spouse Allergies No Known Allergies Allergy (Verified 01/29/25 11:15) HPI HPI bile leak, needed soon per jessica ofc: Details: He is here for follow-up after laparoscopic cholecystectomy last 01/07/2021. He had acute cholecystitis at that time. I had readmitted him the week after because of pain with findings of a fluid collection in the gallbladder fossa. He had a CT drain done at that time. However, he pulled out his CT drain inadvertently. He remained comfortable and his pain had resolved so was discharged after 3 days in the hospital He again complained of pain last week so I sent him to IR for a repeat drainage. However, follow up imaging showed that the fluid collection had decreased significantly so IR the no repeat drain was necessary. He still continues to have poor appetite. He says that he has lost some weight already as he says that eating causes some discomfort in the epigastric area. Denies any fever or chills otherwise. He now has good bowel movements. [facility] Medical History Biloma following surgery Biloma Postoperative pain HLD (hyperlipidemia) HTN (hypertension) Diabetes Carotid stenosis AAA (abdominal aortic aneurysm) Gallstones COPD (chronic obstructive pulmonary disease) Pulmonary emphysema Surgical History History of laparoscopic cholecystectomy (~01/07/25) H/O prostatectomy H/O arterial bypass of lower limb History of left-sided carotid endarterectomy History of cholecystectomy History of bilateral knee replacement H/O bilateral cataract extraction History of AAA (abdominal aortic aneurysm) repair Social History Household Members: Spouse Housing: House Do you presently have visiting nurse or other home services: No Patient Tobacco Use Status: Former Tobacco user Tobacco use type: Cigarette service: Yes Review of Systems Const Denies chills, Denies fever(s) and Reports weight loss Card Denies chest pain Resp Denies cough GI Denies vomiting Physical Exam Vital Signs: Last Vital Signs Pulse 97 01/29/25 11:12 BP 163/72 H 01/29/25 11:12 BMI result Body Mass Index 21.7 Const General: comfortable and no acute distress Eyes Other: Anicteric Resp Effort & Inspection: normal respiratory effort GI Palpation (GI): Soft to palpation, not firm, nontender and no guarding Assessment & Plan Assessment & Plan (1) Biloma following surgery: Code(s): T81.89XA - Other complications of procedures, not elsewhere classified, initial encounter; K66.8 - Other specified disorders of peritoneum Category: Medical Plan: He is status post laparoscopic cholecystectomy last January 07, 2025. He had an IR drainage for what appeared to be a biloma on January 14. His drain was pulled out inadvertently. Follow up imaging last week so that the fluid collection has decreased significantly. IR drain insertion was therefore not done. He is main problem now is he has poor appetite he has been losing weight. He denies significant pain but does have some epigastric discomfort especially with eating I will schedule him for a repeat ultrasound to re-evaluate the area of the gallbladder fossa. He otherwise does not have any fever, chills or vomiting. He has had good bowel movements. His main problem is he has a very poor a ppetite. It appears that the postop process in the gallbladder fossa maybe causing irritation in the area he had subsequent poor appetite and discomfort with oral intake I instructed him to take Ensure supplements. I encouraged him to increase his oral intake. I will see him again in the office next week. His was with him during the visit. They are comfortable with the plan. Orders: Orders US abdomen limited Today K66.8 - Other specified disorders of peritoneum, T81.89XA - Other complications of procedures, not elsewhere classified, initial encounter Coding Level of Care Code Global (44642) Diagnoses Biloma following surgery T81.89XA; K66.8
[2025-01-29 11:12] VITALS: BP 163/72; PULSE 97; BMI 21.7
--- OUTSIDE RECORDS SUMMARY | 2025-01-29 17:02 | XMS_ITS | Encounter Summary ---
Author Organization [facility] Address [address] [place] [address] Phone Care Team Providers Care Senior Financial Reporting Analyst Name Role Phone Lindy Buckner MD Primary Care Provider Encounter Details Date Type Department Care Team (Late st Contact Info) Description 08/10/2022 Procedure Pass [facility] Endoscopy Admitting Dept Virtual Department [address] [place] [address] Social History Tobacco Use Types Packs/Day Years [...] on filedocumented in this encounter Care Teams Senior Financial Reporting Analyst Relationship Specialty Start Date End Date Lindy Buckner MD [address] [place] [address] PCP - General Internal Medicine 06/09/22 documented as of this encounter Additional Source Comments The information contained in this document represents components of the legal health record. It is not the complete legal health record.[facility]
--- OUTSIDE RECORDS SUMMARY | 2025-01-29 17:03 | XMS_ITS | Data Portability ---
Author Organization [place] - [facility], [facility] Address [address] [place] [address] Care Team Providers Care Help Desk Engineer Name Role Phone EMMANUEL COPELAND Primary Care [...] patient today under the supervision of Dr Rivear who was available but who did not [...] 15 mg tablet 2024 025 [email or web address] [id number], [id number] [place], [address], 5 10:49:41 Patient TargetsNo targets recorded. 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 Procedures Surgical History Date Name Laterality Status Provider Name and Address Organization Details Recorded Time 5 JZShoulder INJ completed Chad Hunter PA-C [address], [place], [address], [facility] 07/23/2024 07:40:15 5 JZShoulder INJ completed Chad Hunter PA-C [address], [place], [address], [facility] 04/23/2024 08:51:15 4 JZShoulder INJ completed Chad Hunter PA-C [address], [place], [address], [facility] 01/23/2024 08:52:21 4 JZShoulder INJ completed Chad Hunter PA-C [address] [facility], [place], [address], [facility] 10/24/2023 08:54:24 4 JZCMC Inj completed Chad Hunter PA-C [address] [facility], [place], [address], [facility] 10/24/2023 08:54:34 4 JZShoulder INJ completed Chad Hunter PA-C [address] [facility], [place], [address], [facility] 07/26/2023 13:08:59 Imaging [...] Updated DateTime 04/23/2024 177.8 cm 23.7 kg/m2 36655.74 g [facility] 04/23/2024 08:28:45 Date Recorded Body height Body mass index (BMI) Body weight Provider Name and Address Organization Details Last Updated DateTime 07/23/2024 177.8 cm 23.7 kg/m2 64302.74 g [facility] 07/23/2024 07:27:11 Date Recorded Body height Body mass index (BMI) Body weight Provider Name and Address Organization Details Last Updated DateTime 07/26/2023 177.8 cm 23.7 kg/m2 81096.74 g Merced Curtis [facility] 07/26/2023 13:05:11 Date Recorded Body height Body mass index (BMI) Body weight Provider Name and Address Organization Details Last Updated DateTime 10/24/2023 177.8 cm 23.7 kg/m2 59577.74 g Bayron Gaffney [facility] 10/24/2023 08:48:57 Date Recorded Body height Body mass index (BMI) Body weight Provider Name and Address Organization Details Last Updated DateTime 01/23/2024 177.8 cm 23.7 kg/m2 46262.74 g Bayron Gaffney [facility] 01/23/2024 08:49:29 Social History None recorded. Functional Status None recorded. Mental Status None recorded. Family History Nothing Reported. Medical History No medical history recorded. Past Encounters Encounter ID Performer Location Encounter Start Date Encounter Closed Date Diagnosis/Indication Diagnosis SNOMED-CT Code Diagnosis ICD10 Code Diagnosis IMO Codes Diagnosis Note [id number] GUERDA Dawson [address] [place] [address] 07/26/2023 12:43:37 08/20/2023 13:07:39 Impingement syndrome of left shoulder region 5245881599 89334 M75.42 [id number] GUERDA Dawson [address] [place] [address] 10/24/2023 08:42:15 11/19/2023 13:35:25 Impingement syndrome of left shoulder region 7987333471 49468 M75.42 Osteoarthr osis of the carpometacarpal joint of the thumb 82062423 M18.9 [id number] GUERDA Dawson [address] [place] [address] 01/23/2024 08:45:15 02/19/2024 07:48:29 Impingement syndrome of left shoulder region 1370604683 68882 M75.42 [id number] GUERDA Dawson [facility] [address] [place] [address] 04/23/2024 08:18:47 05/09/2024 12:39:46 Impingement syndrome of left shoulder region 7663747134 07758 M75.42 [id number] GUERDA Dawson - [facility] [address] [place] [address] 07/23/2024 07:22:30 08/04/2024 13:32:23 Impingement syndrome of left shoulder region 0366383800 24953 M75.42 Health Concerns Section Related Observation LastModified by Organization Detai ls LastModified Time None Recorded Concern Status LastModified by Organization Details LastModified Time None Recorded Advance Directives Directive None Recorded Payers Insurance Date Sequence Insurance Name Policy Number Policy Eckert Covered Member ID Eckert Member ID Guarantor Name 07/20/2024 1 [place] [employer]MENT [employer] Mikal Elizondo [id number] Mikal Elizondo 08/04/2024 2 [employer] (POS) [id number] Mikal Elizondo [id number] Mikal Elizondo 09/07/2023 2 UNSPECIFIED REMIT PAYOR Mikal Elizondo
--- OUTSIDE RECORDS SUMMARY | 2025-01-29 17:03 | XMS_ITS | Encounter Summary ---
Author Organization [facility] Address [address] [facility] [address] [place] [address] Phone Care Team Providers Care Yard Switch Operator Name Role Phone Lindy Buckner MD Primary Care Provider Encounter Details Date Type Department Care Team (Late st Contact Info) Description 03/02/2023 Procedure Pass [facility] Endoscopy Admitting Dept Virtual Department [address] [place] [address] Social History Tobacco Use Types Packs/Day Years [...] on filedocumented in this encounter Care Teams Yard Switch Operator Relationship Specialty Start Date End Date Lindy Buckner MD [address] [place] [address] PCP - General Internal Medicine 06/09/22 documented as of this encounter Additional Source Comments The information contained in this document represents components of the legal health record. It is not the complete legal health record.[facility]
--- OUTSIDE RECORDS SUMMARY | 2025-01-29 17:04 | XMS_ITS | Encounter Summary ---
Author Organization [facility] Address [address] [place] [address] Phone Care Team Providers Care Power Transformer Repairer Name Role Phone Lindy Buckner MD Primary Care Provider Encounter Details Date Type Department Care Team (Late st Contact Info) Description 06/09/2022 Procedure Pass [facility] Endoscopy Admitting Dept Virtual Department [address] [place] [address] Social History Tobacco Use Types Packs/Day Years [...] on filedocumented in this encounter Care Teams Power Transformer Repairer Relationship Specialty Start Date End Date Lindy Buckner MD [address] [place] [address] PCP - General Internal Medicine 06/09/22 documented as of this encounter Additional Source Comments The information contained in this document represents components of the legal health record. It is not the complete legal health record.[facility]
--- OUTSIDE RECORDS SUMMARY | 2025-01-29 17:04 | XMS_ITS | Clinical Summary ---
Author Organization [facility] Address [address] [facility] [address] [place] [address] Phone Care Team Providers Care Supervisor Furnace Room Name Role Phone Lindy Buckner MD Primary [...] this topic Medical Devices Implanted Type Area Industrial Economics Teacher Device Identifier Shelf Expiration Date Model [...] Most Recently Relevant to Health Maintenance [facility] Care Teams Supervisor Furnace Room Relationship Specialty Start Date End Date Lindy Buckner MD [address] [place] [address] PCP - General Internal Medicine 06/09/22 Additional Source Comments The information contained in this document represents components of the legal health record. It is not the complete legal health record.[facility]
--- OUTSIDE RECORDS SUMMARY | 2025-01-29 17:04 | XMS_ITS | Encounter Summary ---
Author Organization [facility] Address [address] [facility] [address] [place] [address] Phone Care Team Providers Care Food Services Manager Name Role Phone Lindy Buckner MD Primary Care Provider [phone] Encounter Details Date Type Department Care Team (Late st Contact Info) Description 04/13/2023 Procedure Pass [facility] Endoscopy Admitting Dept Virtual Department [address] [place] [address] Social History Tobacco Use Types Packs/Day Years [...] on filedocumented in this encounter Care Teams Food Services Manager Relationship Specialty Start Date End Date Lindy Buckner MD [address] [place] [address] PCP - General Internal Medicine 06/09/22 documented as of this encounter Additional Source Comments The information contained in this document represents components of the legal health record. It is not the complete legal health record.[facility]
--- OUTSIDE RECORDS SUMMARY | 2025-01-29 17:06 | XMS_ITS | Patient Health Record ---
Author Organization [facility] Address [address] [place] [address] Support Name Relationship Address Phone QUENTIN DENNY Guarantor Unknown Reason For Referral No Information Plan Of Treatment No Information
--- OUTSIDE RECORDS SUMMARY | 2025-01-29 17:06 | XMS_ITS | Patient Health Record ---
Author Organization Kiko Coats MD Address [address] [place], [place] [id number] Care Team Providers Care Stenocaptioner Name Role Phone Kiko Coats Primary Care Provider Allergies No Known Allergies Results Component Value Reference Range Notes Complete Blood Count Auto Di ff Reviewed date:11/13/2024 04:28:00 PM Interpretation: Performing Lab:[facility], [address] [place] [phone] Notes/Report: White Blood Count 9.2 4.8-10.8 X10*3/uL [...] 0.0 0.0-0.2 /100WBC Neutrophils Absolute Auto 6.4 2.0-8. 3 x10*3/uL Imm Gran Abs Auto 0.07 0.00-0.03 X10*3/uL Lymphocytes Absolute Auto 1.5 1.2-4. 9 X10*3/uL Monocytes Absolute Auto 0.9 0.1-1.2 X10*3/uL Eosinophils Absolute Auto 0.3 0.0-0. 4 X10*3/uL Basophils Absolute Auto 0.1 0.0-0.2 X10*3/uL NRBC Abs Auto 0.000 0.0-0.012 X10*3/uL Comprehensive [place]. Panel Fa st Reviewed date:11/13/2024 04:28:23 PM Interpretation: Performing Lab:[facility], [address] [place] [phone] Notes/Report: Sodium 142 135-145 mmol/L Potassium 3.9 [...] PROFILE Reviewed date:11/13/2024 04:19:48 PM Interpretation: Performing Lab:[facility], [address] [place] [phone] Notes/Report: Iron 63 45-160 mcg/dL Total Iron Binding Capacity 244 228-428 mcg/dL Percent Iron Saturation 26 15-50 % Unsaturated Iron Binding 181 Lipid Panel Reviewed date:11/13/2024 04:24:20 PM Interpretation: Performing Lab:[facility], [address] [place] [phone] Notes/Report: Triglycerides 283 <150 mg/dL Desirable Triglyceride: [...] (Free>4and<10) Reviewed date:11/13/2024 04:24:30 PM Interpretation: Performing Lab:[facility], [address] [place] [phone] Notes/Report: PSA,Total (Free>4and<10) < 0.10 0.00-4.00 ng/mL [...] Random Reviewed date:11/13/2024 04:25:27 PM Interpretation: Performing Lab:[address] [phone] Notes/Report: Creatinine Urine 70.25 Microalbumin Urine 79.0 Microalbum/Creatinine Ratio Ur 112.4 <30 ug/mg cr Albumin/Creatinine Ratio Reference Ranges: Normal: < 30 ug/mg creatinine Microalbuminuria: 30 - 300 ug/mg creatinine Clinical Albuminuria: > 300 ug/mg creatinine Hemoglobin A1c Reviewed date:11/13/2024 04:19:36 PM Interpretation: Performing Lab:[address] [address] Notes/Report: Hemoglobin A1c % 6.3 <6.0 % [...] average glucose, using the formula of the Z3E-Vhrtplw Average Glucose study (ADAG), Diabetes Care, Vol.31,#8, Sep. 2007 UA ClnCatch+Micro w/rflx Cul t Reviewed date:11/13/2024 04:28:44 PM Interpretation: Performing Lab:[facility], [address] [place] [phone] Notes/Report: [id number] Urine, Clean Catch Color Urine Yellow Appearance Urine Clear PH 7.0 5.0-9.0 Glucose Urine UA >=1000 Negative mg/dL Urine Blood Negative Negative Specific Oracle - Urine 1.010 1.005-1.025 Urine Protein Trace Neg-Trace mg/dL Urine Ketones Negative Negative mg/dL Nitrite Urine Negative Negative Leukocyte Esterase Urine Negative Negative RBC Urine 0-2 0-2 /HPF WBC Urine 0-5 0-5 /HPF Squamous Epithelial Cell Urine 0-2 0-2 /HPF Bacteria Urine None Seen None Seen Hyaline Casts Urine 0-2 0-2 /LPF Complete Blood Count Auto Di ff Reviewed date:01/23/2025 06:39:11 PM Interpretation: Performing Lab:[address] [phone] Notes/Report: White Blood Count 12.0 4.8-10.8 X10*3/uL [...] 0.0 0.0-0.2 /100WBC Neutrophils Absolute Auto 8.7 2.0-8. 3 x10*3/uL Imm Gran Abs Auto 0.04 0.00-0.03 X10*3/uL Lymphocytes Absolute Auto 1.6 1.2-4. 9 X10*3/uL Monocytes Absolute Auto 1.1 0.1-1.2 X10*3/uL Eosinophils Absolute Auto 0.4 0.0-0. 4 X10*3/uL Basophils Absolute Auto 0.1 0.0-0.2 X10*3/uL NRBC Abs Auto 0.000 0.0-0.012 X10*3/uL Erythrocyte Sedimentation Ra te Reviewed date:01/23/2025 06:38:02 PM Interpretation: Performing Lab:[facility] [address] [address] Notes/Report: Erythrocyte Sedimentation Rate 87 0-15 MM/HR Patients with polycythemia and many hemoglobin abnormalities may have depressed sed rates whereas patients with anemia may have elevated sed rates. Comprehensive [place]. Panel Fa Reviewed date:01/23/2025 06:42:44 PM Interpretation: Performing Lab:[address] [address] Notes/Report: Sodium 139 135-145 mmol/L Potassium 4.0 [...] Magnesium Reviewed date:01/23/2025 06:38:10 PM Interpretation: Performing Lab:[facility], [address] [place] [phone] Notes/Report: Magnesium 2.0 1.6-2.6 mg/dL US abdomen limited Reviewed date:01/20/2025 02:34:16 PM Interpretation: Performing Lab: Notes/Report: [address] [address] Ultrasound Report Signed Patient: Mikal Elizondo MR#: [id number] : 1950 Acct:[id number] Age/Sex: 74 / M ADM Date: 01/20/25 Loc: HO.US Attending Dr: Kiko Coats MD Ordering Physician: Kiko Coats MD Date of Service: 01/20/25 Procedure(s): US abdomen limited Accession Number(s): [id number] cc: Kiko Coats MD Reason for Exam: [...] the gallbladder fossa, not measured by the desk lieutenant, roughly 2.5 x 2.7 x 3.7 cm [...] 01/20/25 1113 DD/ 1112 TD/TT: 01/20/25 1112 Miller Helper: [place] [address] Ultrasound Report Signed Patient: Yadira Elizondo MR#: [id number] : 1950 Acct:[id number] Age/Sex: 74 / M ADM Date: 01/20/25 Loc: HO.US Attending Dr: Kiko Coats MD Ordering Physician: Kiko Coats MD Date of Service: 01/20/25 Procedure(s): US abd omen limited Accession Number(s): [id number] cc: Kiko Coats MD Reason for Exam: Fernando e Leak CLINICAL HISTORY: Bi le Leak US abdomen limited Comparison: CT/SD/SR - CT ABDOMEN PELVIS WITH IV CONTRAST - 01/14/25 13:06 EST Findings: The pancreas is unremarkable. Abdominal aorta and IVC are not seen. The liver is normal in size and echogenicity, no discrete lesion is visualized in the im aged liver. No bile duct dilatat ion. Common duct 4 mm diameter. Status post cholecystectomy, hypoechoic fluid collection contains punctate echogenic focus like ly air in the gallbladder fossa, not measured by the desk lieutenant, roughly 2.5 x 2.7 x 3.7 cm [...] 01/20/25 1113 DD/ 1112 TD/TT: 01/20/25 1112 Miller Helper: XR chest 2V Reviewed date:03/07/2024 12:57:23 PM Interpretation: Performing Lab: Notes/Report: [facility] [place] [facility] [address] [place], [place] [address] XRay Report Signed Patient: Mikal Elizondo MR#: [id number] : 1950 Acct:[id number] Age/Sex: 73 / M ADM Date: 03/06/24 Loc: .HMGCX Attending Dr: Kiko Coats MD Ordering Physician: Kiko Coats MD Date of Service: 03/06/24 Procedure(s): XR chest 2V Accession Number(s): [id number] cc: Kiko Coats MD EXAMINATION: XR CHEST [...] by: Que Lopez MD 03/07/2024 12:12 PM EST RP Dictated By: Que Wilkinson MD Signed By: <Electronically signed by Que Felix MD in OV> 03/07/24 1212 DD/ 1406 TD/TT: 03/06/24 1410 Miller Helper: [facility] [address] [place] [address] [place] [address] XRay Report Signed Patient: Yadira Elizondo MR#: [id number] : 1950 Acct:[id number] Age/Sex: 73 / M ADM Date: 03/06/24 Loc: [facility] Attending Dr: Kiko Coats MD Ordering Physician: Kiko Coats MD Date of Service: 03/06/24 Procedure(s): XR chest 2V Accession Number(s): [id number] cc: Kiko Coats MD EXAMINATION: XR CHEST [...] by: Que Lopez MD 03/07/2024 12:12 PM EST RP Dictated By: Que Grullon MD Signed By: <Electronically signed by Que Felix MD in OV> 03/07/24 1212 DD/ 1406 TD/TT: 03/06/24 1410 Miller Helper: Liver Panel Reviewed date:05/05/2024 12:51:46 PM Interpretation: Performing Lab:[facility], [address] [place] [phone] Notes/Report: Bilirubin Total 0.4 0.0-1.0 mg/dL Bilirubin Direct 0.2 0.0-0.5 mg/dL Aspartate Amino Transferase 21 5-37 U/L Alanine Aminotransferase 24 0-40 U/L Total Protein 7.0 6.5-8.0 g/dL Albumin Level 4.0 3.5-5.0 g/dL Alkaline Phosphatase 51 39-117 U/L Glucose Fasting Reviewed date:05/05/2024 12:52:03 PM Interpretation: Performing Lab:[facility], [address] [place] [phone] Notes/Report: Glucose Fasting 97 60-99 mg/dL Lipid Panel with Reflex Reviewed date:05/05/2024 04:32:27 PM Interpretation: Performing Lab:[facility], [address] [place] [phone] Notes/Report: Triglycerides 251 <150 mg/dL Desirable Triglyceride: [...] A1c Reviewed date:05/05/2024 11:59:28 AM Interpretation: Performing Lab:[facility], [address] [place] [phone] Notes/Report: Hemoglobin A1c % 6.1 <6.0 % [...] average glucose, using the formula of the Q6Q-Arsskas Average Glucose study (ADAG), Diabetes Care, Vol.31,#8, Sep. 2007 XR clavicle RT Reviewed date:10/17/2024 06:49:30 PM Interpretation: Performing Lab: Notes/Report: [facility] [address] [facility] [address] [place], [place] [address] XRay Report Signed Patient: Mikal Elizondo MR#: [id number] : 1950 Acct:[id number] Age/Sex: 74 / M ADM Date: 10/15/24 Loc: HO.HMGCX Attending Dr: Isela Reyes PA-C Ordering Physician: ISELA REYES Date of Service: 10/15/24 Procedure(s): XR clavicle RT Accession Number(s): [id number] cc: Kiko Coats MD; ISELA REYES EXAMINATION: [...] Felix MD in OV> 10/15/24 0941 DD/ 7 TD/TT: 10/15/249[address] Miller Helper: [facility] [place] [facility] [address] XRay Report Signed Patient: Yadira Elizondo MR#: [id number] : 1950 Acct:[id number] Age/Sex: 74 / M ADM Date: 10/15/24 Loc: HO.HMGCX Attending Dr: Anna Reyes PA-C Ordering Physician: IESLA REYES Date of Service: 10/15/24 Procedure(s): XR cla vicle RT Accession Number(s): [id number] cc: Kiko Coats MD; ISELA REYES EXAMINATION: [...] 10/15/2024 09:41 AM EDT Dictated By: Que Grullon MD Signed By: <Electronically signed by Que Felix MD in OV> 10/15/2441 DD/ 7 TD/TT: 10/15/249[address] Miller Helper: Glucose, Whole Blood Reviewed date:01/07/2025 01:11:13 PM Interpretation: Performing Lab:[facility], [address] [place] [phone] Notes/Report: Glucose, Whole Blood 149 60-115 mg/dL METER # : [id number] Pathology Reviewed date:01/12/2025 05:49:16 PM Interpretation: Performing Lab:[facility], [address] [place] [phone] Notes/Report: ----- Name: Ce Elizondo rose Age/Sex: 74/M : 1950 Unit#: [id number] Attend Dr: Zohaib Mosher MD Re01/07/25 Status : [facility] Location: [facility] Disch: ----- SPEC : [id number] REC STATUS: [facility] NUM: [id number] ANGELICA: 01/07/25-[address] [facility] [address]: Zohaib Mosher MD ENTERED: 01/08/25-01 16 SP TYPE: Surgical OTHR DR: Kiko Coats MD ORDERED: Gross Micro L3 Diagnosis Gallbladder, cholecystectomy: Acute on chronic cholecystitis with focal gangrenous necrosis, and cholelithiasis. Clinical History Calculus of gallblad fabienne without cholecystitis Microscopic Description Microscopic sections reviewed. Material Received Gallbladder Gross Description Received in formalin is an 11.8 x 3.6 x 2.5 cm focally disrupted gallbladder with a 0.2 cm segment of attached cystic duct. The serosa is congested with attached adipose tissue. A pericholecystic duct lymph node is not identified. Within the lumen are multiple black, irregularly-shaped calculi ranging from 0.3-0.6 cm in greatest dimension. The mucosa is diffusely bile-stain ed and velvety and the wall averages 0.4 cm in thickness. Mass lesions are not identified. Procurement Cost Coordinator sections, including the inked cystic duct margin, are submitted in janay Wu (WALLY) IHC S/NG Disclaimer NOTE: Unless otherwi se stated, all tissue is formalin-fixed and paraffin-embedded. Some or all of the immunohistochemical tests reported herein may have been developed and their performance characteristics determined by [facility]. They have not been cleared or appr germania by the U.S. Food and Drug Administration (FDA). However, the FDA has determined that such clearance or approval is not necessary. This laboratory is certified under the Clinical Laboratory Improvement Amendments of 1988 (CLIA) as qualified to perform high complexity clinical laboratory testing. Copies To: Kiko Coats MD [facility] [address] [place] [address] CONTINUED ON NEXT PAGE ----- Name: Ce Elizondo rose Age/Sex: 74/M : 1950 Unit#: [id number] Attend Dr: Zohaib Mosher MD Re01/07/25 Status : [facility] Location: [facility] Disch: ----- SPEC : [id number] RECD : 01/08/25 STATUS: [facility] NUM: [id number] ANGELICA: 01/07/25-[address] [facility] [address]: Zohaib Mosher MD ENTERED: 01/08/25-01 16 SP TYPE: Surgical OTHR DR: Kiko Coats MD ORDERED: Gross Micro L3 Copies To: (Continued) Zohaib Mosher MD [facility] [address] [place] [address] ----- Signed (signature on file) Marianela Chau MD 01/12/25 1155 ----- END OF REPORT Complete Blood Count Auto Di ff Reviewed date:01/14/2025 05:00:01 PM Interpretation: Performing Lab:[facility], [address] [place] [phone] Notes/Report: White Blood Count 15.4 4.8-10.8 X10*3/uL Red Blood Count 4.39 4.60-5.80 X10*6/uL Hemoglobin 12.5 14.0-18.0 g/dl Hematocrit 37.6 42.0-52.0 % Mean Corpuscular Volume 85.6 80.0-98.0 fL Mean Corpuscular Hemoglobin 28.5 27.0-33.0 pg Mean Corpuscular HGB Conc 33.2 31.0-36.0 g/dl Red Cell Distribution Width 14.6 11.0-16.0 % Platelet Count 372 160-400 X10*3/uL Mean Platelet Volume 10.8 9.4-12.4 fL Neutrophils Percent Auto 69.3 45-73 % Imm Gran Pct Auto 2.1 0.0-0.4 % Lymphocytes Percent Auto 15.9 20-40 % Monocytes Percent Auto 9.0 2-11 % Eosinophils Percent Auto 2.8 0-4 % Basophils Percent Auto 0.9 0-2 % NRBC Pct Auto 0.0 0.0-0.2 /100WBC Neutrophils Absolute Auto 10.7 2.0-8. 3 x10*3/uL Imm Gran Abs Auto 0.32 0.00-0.03 X10*3/uL Lymphocytes Absolute Auto 2.5 1.2-4. 9 X10*3/uL Monocytes Absolute Auto 1.4 0.1-1.2 X10*3/uL Eosinophils Absolute Auto 0.4 0.0-0. 4 X10*3/uL Basophils Absolute Auto 0.1 0.0-0.2 X10*3/uL NRBC Abs Auto 0.000 0.0-0.012 X10*3/uL Prothrombin Time INR Reviewed date:01/14/2025 04:58:46 PM Interpretation: Performing Lab:[facility], [address] [place] [phone] Notes/Report: Prothrombin Time 16.6 11.2-13.5 SEC INTERNATIONAL NORM RATIO 1.4 0.9-1.1 INTERNATIONAL NORMALIZED RATIO (INR) REFERENCE RANGES Reference Range For patients not on anticoagulant therapy: 0.9 - 1.1 INR ranges for oral anticoagulant therapy: For prevention and treatment of venous thrombosis and pulmonary embolism: 2.0 - 3.0 For acute myocardial infarction with aspirin therapy: 2.0 - 3.0 For acute myocardial infarction without aspirin therapy: 3.0 - 4.0 For patients with mechanical prosthetic heart valves: 2.5 - 3.5 Partial Thromboplastin Time Reviewed date:01/14/2025 04:55:47 PM Interpretation: Performing Lab:[facility], [address] [place] [phone] Notes/Report: Partial Thromboplastin Time 33.4 26.7-34.1 SEC Liver Panel Reviewed date:01/14/2025 04:59:14 PM Interpretation: Performing Lab:[facility], [address] [place] [phone] Notes/Report: Bilirubin Total 0.5 0.0-1.0 mg/dL Bilirubin Direct 0.2 0.0-0.5 mg/dL Aspartate Amino Transferase 30 5-37 U/L Alanine Aminotransferase 29 0-40 U/L Total Protein 7.5 6.5-8.0 g/dL Albumin Level 4.3 3.5-5.0 g/dL Alkaline Phosphatase 113 39-117 U/L Basic Metabolic Panel Reviewed date:01/14/2025 04:59:40 PM Interpretation: Performing Lab:[address] [address] Notes/Report: Sodium 137 135-145 mmol/L Potassium 4.0 3.3-5.1 mmol/L Chloride 102 96-108 mmol/L Carbon Dioxide 22 22-29 mmol/L Anion Gap 17 12-20 Blood Urea Nitrogen 13 9-16 mg/dL Creatinine 1.12 0.5-1.4 mg/dL Creatinine Clr Calc Pharmacy 55.9 eGFR (calculated from the MDRD study equation) and eCrCl (calculated from the Cockcroft-Gault equation) are based on different parameters and may not yield comparable results. If eCrCl result is absurd, please check patient's height/weight. Estimated Glomerular Filt Rate > 60 Chronic Kidney Disease: Estimated GFR < 60 mL/min/1.73m2 Severe Kidney Disease: Estimated GFR < 15 mL/min/1.73m2 Glucose Random 144 60-115 mg/dL Calcium 9.8 8.4-10.2 mg/dL Lactic Acid Reviewed date:01/14/2025 04:59:07 PM Interpretation: Performing Lab:[address] [address] Notes/Report: Lactic Acid 2.4 0.5-2.0 mmol/L Critical value for LACTIC: Results called to and read back by: TAYE Person calling: DEEP Date: 01/14/25 Time: 1229 Magnesium Reviewed date:01/14/2025 04:59:00 PM Interpretation: Performing Lab:[address] [address] Notes/Report: Magnesium 2.1 1.6-2.6 mg/dL Lipase Reviewed date:01/14/2025 04:58:52 PM Interpretation: Performing Lab:[address] [address] Notes/Report: Lipase 50 8-78 U/L Gram stain Reviewed date:01/19/2025 05:27:21 PM Interpretation: Performing Lab:[address] [address] Notes/Report: GALLBLADDER FOSSA COLLECTION gall bladder fossa collection Gram stain Gram stain results: Gram stain 1+ polys Gram stain 1+ red blood cells Gram stain No organisms seen UA CC w/rflx Micro + Cult Reviewed date:01/14/2025 04:58:30 PM Interpretation: Performing Lab:[address] [address] Notes/Report: [id number] Urine, Clean Catch Color Urine Yellow Appearance Urine Clear PH 7.5 5.0-9.0 Glucose Urine UA 500 Negative mg/dL Urine Blood Negative Negative Specific Oracle - Urine 1.020 1.005-1.025 Urine Protein Negative Neg-Trace mg/dL Urine Ketones Negative Negative mg/dL Nitrite Urine Negative Negative Leukocyte Esterase Urine Negative Negative Blood Culture (First) Reviewed date:01/19/2025 05:26:58 PM Interpretation: Performing Lab:[address] [address] Notes/Report: Blood Culture (First) No growth after 5 days. Blood Culture (Second) Reviewed date:01/19/2025 05:26:48 PM Interpretation: Performing Lab:[address] [address] Notes/Report: Blood Culture (Second) No growth after 5 days. Lactic Acid-LAB USE ONLY Reviewed date:01/14/2025 04:55:59 PM Interpretation: Performing Lab:[address] [address] Notes/Report: Lactic Acid-LAB USE ONLY 1.0 0.5-2.0 mmol/L Routine Culture Reviewed date:01/19/2025 05:27:13 PM Interpretation: Performing Lab:[address] [address] Notes/Report: GALLBLADDER FOSSA COLLECTION gall bladder fossa collection Routine Culture No growth after 2 days Anaerobic Culture Reviewed date:01/19/2025 05:27:30 PM Interpretation: Performing Lab:[facility], [address] [place] [address] Notes/Report: GALLBLADDER FOSSA COLLECTION gall bladder fossa collection Anaerobic Culture NO GROWTH AFTER [address] drain peritoneum Reviewed date:01/17/2025 03:47:04 PM Interpretation: Performing Lab: Notes/Report: [address] [address] [address] Scan Report Signed Patient: Mikal Elizondo MR#: [id number] : 1950 Acct:[id number] Age/Sex: 74 / M ADM Date: 01/14/25 Loc: HO.S3 374-[address]: Zohaib Mosher MD Ordering Physician: Zohaib Mosher MD Date of Service: 01/14/25 Procedure(s): CT drain peritoneum Accession Number(s): [id number] cc: Kiko Coats MD; Zohaib Mosher MD Report Number: [id number]: Total DLP = 311.00 mGy-cm Reason for Exam: FLUID COLLECTION GB FOSSA PROCEDURE: CT-GUIDED DRAINAGE, PERITONEAL ABSCESS CLINICAL INFORMATION: FLUID COLLECTION GB FOSSA COMPARISON: Previous CT of the abdomen and pelvis most recent from earlier the same day TECHNIQUE: Procedure risks and benefits including bleeding, infection and injury to the liver were discussed with the patient and informed consent was obtained. The patient was positioned in the supine position. Limited axial images through the upper abdomen were performed. The right upper quadrant was prepped and draped in the usual sterile fashion. Skin and soft tissues were anesthetized with 1% lidocaine plain. Using CT guidance and a 22-gauge Chiba needle, access to the fluid collection in the gallbladder fossa was obtained. Clear dark bilious fluid was aspirated. Over an 018 wire, a 6 Citizen [place] pigtail drainage catheter was positioned in the collection. 10 to 15 mL of clear dark bilious fluid was aspirated. Specimen was sent for Gram stain and culture. The patient received Versed 0.5 mg and fentanyl 25 mcg micrograms intravenously during the procedure. Conscious sedation was provided by registered nurse under my direct supervision with continuous hemodynamic monitoring. Total sedation time was [address] examination was performed using dose optimization techniques as appropriate, variously including the following: *Automated exposure control *Adjustment of mA and/or kV according to patient size (this includes techniques or standardized protocols for targeted exams where dose is matched to indication/reason for exam; i.e. extremities or head) *Use of iterative reconstruction technique DLP 3 1 1 mgy/cm FINDINGS: There is a 4 x 4 cm fluid collection in the gallbladder fossa containing a small amount of air that was targeted for aspiration/drainage. Images demonstrate position of pigtail drainage catheter in the collection. No residual collection post aspiration is seen. CT/CT drain peritoneum IMPRESSION: Right upper quadrant/gallbladder fossa collection drainage. Electronically signed by: Danielle Valentine MD 01/16/2025 08:59 AM EST Dictated By: Danielle Valentine MD Signed By: <Electronically signed by Danielle Valentine MD in OV> 01/16/25 0859 DD/ 1638 TD/TT: 01/14/25 1741 Miller Helper: [place] [address] CT Scan Report Signed Patient: Yadira Elizondo MR#: [id number] : 1950 Acct:[id number] Age/Sex: 74 / M ADM Date: 01/14/25 Loc: .S3 374-[address]: Marisela Mosher MD Ordering Physician: Zohaib Mosher MD Date of Service: 01/14/25 Procedure(s): CT cory in peritoneum Accession Number(s): [id number] cc: Kiko Coats MD; Zohaib Mosher MD Report Number: [id number]: Total DLP = 311.00 mGy-cm Reason for Exam: FLU ID COLLECTION GB FOSSA PROCEDURE: CT-GUIDED DRAINAGE, PERITONEAL ABSCESS CLINICAL INFORMATION: FLUID COLLECTION GB FOSSA COMPARISON: Previous CT of the abdomen and pelvis most recent from earlier the same day TECHNIQUE: Procedure risks and benefits including bleeding, infection and injury to the liver were discussed with the patient and informed consent was obtained. The patien t was positioned in the supine position. Limited axial images through the upper abdomen were performed. The right upper quadrant was prepped and draped in the usual sterile fashion. Skin and soft tissues were anesthetized with 1% lidocaine plain. Using CT guidance and a 22-ga uge Chiba needle, access to the fluid collection in the gallbladder tamiko a was obtained. Clear dark bilious fluid was aspirated. Over an 0 18 wire, a 6 Citizen [place] pigtail drainage catheter was positioned in the collection. 10 to 15 mL of clear dark bilious fluid was aspirated. Speci men was sent for Gram stain and culture. The patient received Versed 0.5 mg and fentanyl 25 mcg micrograms intravenously during the procedure. Conscious sedation was provided by registered nurse und er my direct supervision with continuous hemodynamic monitori ng. Total sedation time was [address] examination was performed using dose optimization techniques as appropriate, various ly including the following: *Automated exposure control *Adjustment of mA an d/or kV according to patient size (this includes techniques or standardized protocols for targeted exams where dose is matched to indication/reason for exam; i.e. extremities or head) *Use of iterative reconstruction technique DLP 3 1 1 mgy/cm FINDINGS: There is a 4 x 4 cm fluid collection in the gallbladder fossa containing a small a mount of air that was targeted for aspiration/drainage. Images demonstrate position of pigtail drainage catheter in the collection. No residual collection post aspiration is seen. C T/CT drain peritoneum IMPRESSION: Right upper quadrant/gallbladder fossa collection drainage. Electronically emy d by: Danielle Valentine MD 01/16/2025 08:59 AM [facility] Dictated By: Danielle Valentine MD Signed By: <Electronically signed by Danielle Valentine MD in OV> 01/16/25 0859 DD/ 1638 TD/TT: 01/14/25 1741 Miller Helper: CHACORTA CT abdomen pelvis w con Reviewed date:01/14/2025 04:58:12 PM Interpretation: Performing Lab: Notes/Report: [address] [address] [address] Scan Report Signed Patient: Mikal Elizondo MR#: [id number] : 1950 Acct:[id number] Age/Sex: 74 / M ADM Date: 01/14/25 Loc: HO.ED Attending Dr: Ordering Physician: Zohaib Mosher MD Date of Service: 01/14/25 Procedure(s): CT abdomen pelvis w IV con Accession Number(s): [id number] cc: Kiko Coats MD; Zohaib Mosher MD Report Number: [id number]: Total DLP = 409.00 mGy-cm Reason for Exam: postop pain after lap annamarie EXAMINATION: CT ABDOMEN AND PELVIS WITH CONTRAST CLINICAL INFORMATION: Postoperative pain after laparoscopic cholecystectomy. COMPARISON: CT abdomen and pelvis 07/25/2024 from [facility]. TECHNIQUE: Multidetector volumetric images were obtained from the superior aspect of the liver through the pubic symphysis following administration 85 mL of Omnipaque 350 intravenous contrast. Sagittal and coronal reformatted images were obtained on the technologist's workstation. Oral contrast: No This CT examination was performed using dose optimization techniques as appropriate, variously including the following: *Automated exposure control *Adjustment of mA and/or kV according to patient size (this includes techniques or standardized protocols for targeted exams where dose is matched to indication/reason for exam; i.e. extremities or head) *Use of iterative reconstruction technique FINDINGS: LUNG BASES: Lung bases are clear. There are centrilobular and paraseptal emphysematous changes present. Small type I hiatus hernia present. Heart size normal. No pericardial or pleural effusion present. LIVER, GALLBLADDER, AND BILIARY TREE: The liver is normal in size, shape, and attenuation. No focal suspicious hepatic lesion or biliary ductal dilatation is present. In segment 2 there is a 1.3 cm hemangioma with peripheral nodular discontinuous enhancement. The gallbladder is surgically absent from recent cholecystectomy. In the gallbladder fossa, there is a fluid collection with thin peripheral enhancement and small bubbles of internal gas measuring approximately 4.0 x 4.2 x 3.9 cm. This is suspicious for a biloma versus abscess. A small amount of fluid tracks into the most anterior gallbladder fossa. PANCREAS: Unremarkable. SPLEEN: Unremarkable. ADRENAL GLANDS: Unremarkable. KIDNEYS AND URETERS: The kidneys are normal in size, shape, and attenuation. No hydronephrosis, hydroureter, or calculi seen. No perinephric stranding. BLADDER: Unremarkable. GASTROINTESTINAL TRACT: Small type I hiatus hernia. The stomach is somewhat decompressed. Duodenum appears normal. The small bowel is normal in caliber and course without inflammation. Normal appendix visualized. The colon is normal in course and caliber without wall thickening or abnormal enhancement. There is moderate sigmoid diverticulosis. The rectum appears normal. ABDOMINAL WALL: There are small fat-containing inguinal hernias bilaterally. There is a femoral-femoral bypass graft in place. LYMPH NODES: No abnormal lymphadenopathy is present. VASCULAR: Severe atheromatous disease of the distal thoracic aorta present with soft and calcific plaque and plaque ulcerations. There is a fusiform abdominal aortic aneurysm with an internal stent graft present, with the aneurysm sac measuring 4.8 x 4.6 cm in axial plane, and spanning a craniocaudal length of 8.7 cm. There is an associated left iliac limb, but no definite right iliac limb is present. There is heavy atherosclerotic calcification of the iliac arteries. There is a femorofemoral bypass graft in place. PELVIC VISCERA: There has been a prostatectomy. There are numerous surgical clips in the region of the seminal vesicles. OSSEOUS STRUCTURES: There is no suspicious lytic or blastic bone lesion evident. Mild spinal degenerative changes are present, CT/CT abdomen pelvis w IV con IMPRESSION: 1. Cholecystectomy. In the gallbladder fossa, there is a fluid collection measuring 4.0 x 4.2 x 3.9 cm, either representing an abscess or a biloma. 2. No additional acute findings in the abdomen or pelvis. 3. There is sigmoid diverticulosis. 4. There has been a prostatectomy. 5. There is advanced atherosclerotic vascular disease as discussed, with a treated infrarenal aortic aneurysm. Aneurysm sac is stable since 07/25/2024. 6. Additional Ancillary findings as discussed in the body of the report. Above findings discussed with Dr. Zohaib Mosher at 1:55 PM, 01/14/2025, with content of findings understood. Electronically signed by: Fito Olivares MD 01/14/2025 02:06 PM [facility] Dictated By: Fito Olivares MD Signed By: <Electronically signed by Fito Olivares MD in OV> 01/14/25 1406 DD/ 1306 TD/TT: 01/14/25 1334 Miller Helper: [address] [address] [address] Scan Report Signed Patient: Yadira Elizondo MR#: [id number] : 1950 Acct:[id number] Age/Sex: 74 / M ADM Date: 01/14/25 Loc: .ED Attending Dr: Ordering Physician: Zohaib Mosher MD Date of Service: 01/14/25 Procedure(s): CT abd omen pelvis w IV con Accession Number(s): [id number] cc: Kiko Coats MD; Zohaib Mosher MD Report Number: [id number]: Total DLP = 409.00 mGy-cm Reason for Exam: pos top pain after lap annamarie EXAMINATION: CT ABDOMEN AND PELVI S WITH CONTRAST CLINICAL INFORMATION: Postoperative pain a fter laparoscopic cholecystectomy. COMPARISON: CT abdomen and pelvi s 07/25/2024 from [facility]. TECHNIQUE: Multidetector volume tric images were obtained from the superior aspect of the liver through the pubic symphysis following administration 85 mL of Omnipaque 350 intravenous contrast. Sagittal and coronal reformatted images were obtained on the technologist's workstation. Oral contrast: No This CT examination was performed using dose optimization techniques as appropriate, various ly including the following: *Automated exposure control *Adjustment of mA an d/or kV according to patient size (this includes techniques or standardized protocols for targeted exams where dose is matched to indication/reason for exam; i.e. extremities or head) *Use of iterative reconstruction technique FINDINGS: LUNG BASES: Lung bases are clear . There are centrilobular and paraseptal emphysematous change s present. Small type I hiatus hernia present. Heart size normal. N o pericardial or pleural effusion present. LIVER, GALLBLADDER, AND BILIARY TREE: The liver is normal in size, shape, and attenuati on. No focal suspicious hepatic lesion or biliary ductal dilatation is present. In segment 2 there is a 1.3 cm hemangioma with peripheral nodu lar discontinuous enhancement. The gallbladder is surgically absent from recent cholecystectomy. In the gallbladder f breezy, there is a fluid collection with thin peripheral enhanceme nt and small bubbles of internal gas measuring approximately 4.0 x 4.2 x 3.9 cm. This is suspicious for a biloma versus abscess. A sm all amount of fluid tracks into the most anterior gallbladder fossa. PANCREAS: Unremarkable. SPLEEN: Unremarkable. ADRENAL GLANDS: Unremarkable. KIDNEYS AND URETERS: The kidneys are normal in size, shape, and attenuation. No hydronephrosis, hydroureter, or calculi seen. No perinephric stranding. BLADDER: Unremarkable. GASTROINTESTINAL TRACT: Small type I hiatus hernia. The stomach is somew hat decompressed. Duodenum appears normal. The small bowel is n ormal in caliber and course without inflammation. Normal appendix visualized. The colon is normal in course and caliber without wall thickening or abnormal enhancement . There is moderate sigmoid diverticulosis. The rectum appears normal. ABDOMINAL WALL: There are small fat-containing inguinal hernias bilaterally. There is a femoral-femoral bypass graft in place. LYMPH NODES: No abno rmal lymphadenopathy is present. VASCULAR: Severe atheromatous disease of the distal thoracic aorta present with soft and calcific pl aque and plaque ulcerations. There is a fusiform abdominal aortic aneurysm with an internal stent graft present, with the aneurysm sac measuring 4.8 x 4.6 cm in axial plane, and spanning a craniocaudal length of 8.7 cm. There is an associated left pio c limb, but no definite right iliac limb is present. There is heavy atherosclerotic calcification of the iliac arteries. There is a femorofem oral bypass graft in place. PELVIC VISCERA: There has been a prostatectomy. There are numerous surgical clips in the region of the se peter vesicles. OSSEOUS STRUCTURES: There is no suspicio us lytic or blastic bone lesion evident. Mild spinal degenerative changes are present, C T/CT abdomen pelvis w IV con IMPRESSION: 1. Cholecystectomy. In the gallbladder fossa, there is a fluid collection measuring 4.0 x 4.2 x 3.9 cm, either representing an abscess or a biloma. 2. No additional acu te findings in the abdomen or pelvis. 3. There is sigmoid diverticulosis. 4. There has been a prostatectomy. 5. There is advanced atherosclerotic vascular disease as discussed, with a treated infra renal aortic aneurysm. Aneurysm sac is stable since 07/25/2024. 6. Additional Ancill shu findings as discussed in the body of the report. Above findings discu ssed with Dr. Zohaib Mosher at 1:55 PM, 01/14/2025, with con tent of findings understood. Electronically emy d by: Fito Olivares MD 01/14/2025 02:06 PM [facility] Dictated By: Fito Olivares MD Signed By: <Electronically signed by Fito Olivares MD in OV> 01/14/25 1406 DD/ 1306 TD/TT: 01/14/25 1334 Miller Helper: Complete Blood Count no Diff Reviewed date:01/17/2025 03:44:18 PM Interpretation: Performing Lab:[facility], [address] [place] [phone] Notes/Report: White Blood Count 12.1 4.8-10.8 X10*3/uL Red Blood Count 3.57 4.60-5.80 X10*6/uL Hemoglobin 9.9 14.0-18.0 g/dl Hematocrit 31.2 42.0-52.0 % Mean Corpuscular Volume 87.4 80.0-98.0 fL Mean Corpuscular Hemoglobin 27.7 27.0-33.0 pg Mean Corpuscular HGB Conc 31.7 31.0-36.0 g/dl Red Cell Distribution Width 14.7 11.0-16.0 % Platelet Count 314 160-400 X10*3/uL Mean Platelet Volume 10.6 9.4-12.4 fL NRBC Pct Auto 0.0 0.0-0.2 /100WBC NRBC Abs Auto 0.000 0.0-0.012 X10*3/uL Comprehensive Met. Panel Reviewed date:01/17/2025 03:49:04 PM Interpretation: Performing Lab:[facility], [address] [place] [phone] Notes/Report: Sodium 139 135-145 mmol/L Potassium 3.8 3.3-5.1 mmol/L Chloride 104 96-108 mmol/L Carbon Dioxide 26 22-29 mmol/L Anion Gap 13 12-20 Blood Urea Nitrogen 10 9-16 mg/dL Creatinine 1.06 0.5-1.4 mg/dL Creatinine Clr Calc Pharmacy 59.1 eGFR (calculated from the MDRD study equation) and eCrCl (calculated from the Cockcroft-Gault equation) are based on different parameters and may not yield comparable results. If eCrCl result is absurd, please check patient's height/weight. Estimated Glomerular Filt Rate > 60 Chronic Kidney Disease: Estimated GFR < 60 mL/min/1.73m2 Severe Kidney Disease: Estimated GFR < 15 mL/min/1.73m2 Glucose Random 94 60-115 mg/dL Calcium 8.7 8.4-10.2 mg/dL Test was veri fied by repeat analysis. Bilirubin Total 0.4 0.0-1.0 mg/dL Aspartate Amino Transferase 27 5-37 U/L Alanine Aminotransferase 26 0-40 U/L Total Protein 6.4 6.5-8.0 g/dL Albumin Level 3.6 3.5-5.0 g/dL Alkaline Phosphatase 94 39-117 U/L Hold Lav - Possible Hematolo gy Reviewed date:01/17/2025 03:47:16 PM Interpretation: Performing Lab:[facility], [address] [place] [phone] Notes/Report: Hold Lav - Possible Hematology SEE NOTE Specimen will be held untested for 8 hours. Call Hematology if testing is desired. Liver Panel Reviewed date:01/17/2025 03:43:59 PM Interpretation: Performing Lab:[facility], [address] [place] [phone] Notes/Report: Bilirubin Total 0.3 0.0-1.0 mg/dL Bilirubin Direct 0.1 0.0-0.5 mg/dL Aspartate Amino Transferase 40 5-37 U/L Alanine Aminotransferase 35 0-40 U/L Total Protein 6.7 6.5-8.0 g/dL Albumin Level 3.9 3.5-5.0 g/dL Alkaline Phosphatase 84 39-117 U/L Glucose, Whole Blood Reviewed date:01/22/2025 12:43:39 PM Interpretation: Performing Lab:[facility], [address] [place] [phone] Notes/Report: Glucose, Whole Blood 96 60-115 mg/dL METER # : [id number] CT abdomen wo con Reviewed date:01/22/2025 12:43:30 PM Interpretation: Performing Lab: Notes/Report: [address] [place] [address] CT Scan Report Signed Patient: Mikal Elizondo MR#: [id number] : 1950 Acct:[id number] Age/Sex: 74 / M ADM Date: 01/21/25 Loc: HO.SSS Attending Dr: Zohaib Mosher MD Ordering Physician: Zohaib Mosher MD Date of Service: 01/21/25 Procedure(s): CT abdomen wo IV con Accession Number(s): [id number] cc: Kiko Coats MD; Zohaib Mosher MD Report Number: [id number]: Total DLP = 89.00 mGy-cm Reason for Exam: ? Fluid collection for drain EXAMINATION: CT ABDOMEN WITHOUT CONTRAST CLINICAL INFORMATION: Follow up gallbladder fossa fluid/gas collection postcholecystectomy, Assess for Fluid collection for drain, PT had scan prior to drain, per Harrison not enough fluid for pt to have drain inserted COMPARISON: 01/14/2025 TECHNIQUE: Contiguous axial thin section helical images of the abdomen were performed without contrast. The data set was reformatted in the coronal and sagittal planes and reviewed on an independent workstation. This CT examination was performed using dose optimization techniques as appropriate, variously including the following: *Automated exposure control *Adjustment of mA and/or kV according to patient size (this includes techniques or standardized protocols for targeted exams where dose is matched to indication/reason for exam; i.e. extremities or head) *Use of iterative reconstruction technique FINDINGS: LUNG BASES: Unremarkable LIVER, GALLBLADDER, BILIARY TREE: The liver is unremarkable. There are clips in the gallbladder fossa. Fluid and gas collection within the gallbladder fossa measures 2.9 x 2.7 x 1.9 cm and previously measured 4.2 x 4.0 x 3.9 cm (AP by transverse by CC). PANCREAS: Unremarkable SPLEEN: Unremarkable ADRENAL GLANDS AND KIDNEYS: Unremarkable BOWEL LOOPS: Unremarkable LYMPH NODES: Normal. 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 BONES: Unremarkable CT/CT abdomen wo IV con IMPRESSION: Gallbladder fossa fluid/gas collection has decreased in size and now measures 2.9 x 2.7 x 1.9 centimeter. Postcholecystectomy collection could represent hematoma, seroma, biloma, or less likely abscess. Infrarenal abdominal aorta aneurysm post stent graft. Stable. Fleischner guidelines were followed. Electronically signed by: Mario Gonzales MD 01/21/2025 05:48 PM [facility] Dictated By: Mario Gonzales MD Signed By: <Electronically signed by Mario Gonzales MD in OV> 01/21/25 1748 DD/ 1534 TD/TT: 01/21/25 1638 Miller Helper: [address] [address] [address] Scan Report Signed Patient: Yadira Elizondo MR#: [id number] : 1950 Acct:[id number] Age/Sex: 74 / M ADM Date: 01/21/25 Loc: HO.SSS Attending Dr: Marisela Mosher MD Ordering Physician: Zohaib Mosher MD Date of Service: 01/21/25 Procedure(s): CT abd omen wo IV con Accession Number(s): [id number] cc: Kiko Coats MD; Zohaib Mosher MD Report Number: [id number]: Total DLP = 89.00 mGy-cm Reason for Exam: ? F luid collection for drain EXAMINATION: CT ABDOMEN WITHOUT CONTRAST CLINICAL INFORMATION: Follow up gallbladde r fossa fluid/gas collection postcholecystectomy, Assess for Fluid collection for drain, PT had scan prior to drain, per Harrison not enough fluid for pt to have drain inserted COMPARISON: 01/14/2025 TECHNIQUE: Contiguous axial thi n section helical images of the abdomen were performed without contrast. The data set was reformatted in the coronal and sagittal planes and reviewed on an independent workstation. This CT examination was performed using dose optimization techniques as appropriate, various ly including the following: *Automated exposure control *Adjustment of mA an d/or kV according to patient size (this includes techniques or standardized protocols for targeted exams where dose is matched to indication/reason for exam; i.e. extremities or head) *Use of iterative reconstruction technique FINDINGS: LUNG BASES: Unremarkable LIVER, GALLBLADDER, BILIARY TREE: The liver is unremarkable. There are clips in t he gallbladder fossa. Fluid and gas collec tion within the gallbladder fossa measures 2.9 x 2.7 x 1.9 cm and previously measured 4.2 x 4.0 x 3.9 cm (AP by transverse by CC). PANCREAS: Unremarkable SPLEEN: Unremarkable ADRENAL GLANDS AND KIDNEYS: Unremarkable BOWEL LOOPS: Unremarkable LYMPH NODES: Normal. VASCULAR: Again seen is a fusiform aneurysm involving the infrarenal abdominal aorta exte nding to the inferior mesenteric artery status post stent graft placemen t that was characterized on the prior study and the aneurysm sac measure d 4.6 x 4.8 cm. BONES: Unremarkable C T/CT abdomen wo IV con IMPRESSION: Gallbladder fossa fluid/gas collection has decreased in size and now measures 2.9 x 2.7 x 1.9 centimeter. Postcholecystectomy collection could represent edwina ruth, seroma, biloma, or less likely abscess. Infrarenal abdominal aorta aneurysm post stent graft. Stable. Fleischner guideline s were followed. Electronically emy d by: Mario Gonzales MD 01/21/2025 05:48 PM EST Dictated By: Mario Gonzales MD Signed By: <Electronically signed by Mario Gonzales MD in OV> 01/21/25 1748 DD/ 1534 TD/TT: 01/21/25 1638 Miller Helper: Tommie Castillo Reviewed date:01/23/2025 06:38:18 PM Interpretation: Performing Lab:[facility], [address] [place] [phone] Notes/Report: Tommie Castillo See Note Specimen held untested for 24 hours; Call to request Chemistry testing. Reason For Referral Reason please brynn and corey t Diagnosis 1 Esophageal ulcer wit hout bleeding (K22.10) Referral Organization Kiko Coats MD Referring Provider First Name Kiko Referring Provider Last Name Jorge L Referring Provider Speciality Internal M edicine Referred Provider [facility] , [facility] Referred Provider Specialty Gastroentero logy General Notes Molly Webber 0 09/19/2024 02:58:33 PM > patient is aware of appt, Was told we needed to send a referral (doctor to doctor referral ) Referral Priority Routine Referral Appointment Date 11/12/2024 Medications Medication SIG (Take, Route, Frequency, Duration) Notes Start Date End Date Status Meloxicam 15 MG TAKE 1 TABLET BY DEBORAH TH ONCE A DAY AFTER A MEAL for 30 Active Cialis 20 MG 1 tablet Orally Once a day Active RABEprazole Sodium 20 MG TAKE 1 TABLET B Y MOUTH ONCE DAILY 30 TO 60 MINUTES BEFORE A MEAL. for 90 Active Triamcinolone Acetonide 0.5 % 1 application Externally Once a day for 14 days 11/15/2020 Active Vitamin C 500 MG as directed Orally Active Multi Vitamin Daily - 1 tablet Orally On ce a day for 30 day(s) Active Levalbuterol Tartrate 45 MCG/ACT INHALE 2 PUFFS NEEDED EVERY 4 HOURS FOR 30 DAYS INHALATION EVERY 6 HRS Active Ferrous Gluconate 324 (38 Fe) MG 1 tablet Orally once a day Active traMADol HCl 100 MG 1 tablet as needed Orally every 8 hours as needed 03/06/2024 Not-Taking Ketoconazole 2 % 1 application Externally Once a day for 30 days 11/17/2024 Active traMADol HCl 50 MG 2 tabs as needed Ora lly Once a day for 30 days 07/24/2024 Not-Takin g Ipratropium-Albuterol 0.5-2.5 (3) MG/3ML INHALE 1 VIAL EVERY 4 HOURS NEEDED INHALATION EVERY 6 HRS 30 DAYS Inhalation every 6 hrs for 30 days Active Sucralfate 1 GM 1 tablet on an empty stomach Orally 4 times a day for 30 days 09/22/2024 Not-Taking Stiolto Respimat 2.5-2.5 MCG/ACT INHALE 2 PUFFS INTO THE LUNGS ONCE DAILY Not-Taking Aspir-81 81 MG 1 tablet Orally Once a day for 30 day(s) Active Carvedilol 25 MG 1 tablet with food Orally Twice a day Active Betamethasone Dipropionate 0.05 % as directed Externally daily for 30 days 02/10/2011 Not-Taking PreserVision AREDS 2 - as directed Orally Active amLODIPine Besylate 5 MG TAKE 1 TABLET B Y MOUTH ONCE A DAY FOR 30 DAY(S) Orally Once a day Active valACYclovir HCl 1 GM TAKE 2 TABLETS BY MOUTH EVERY 12 HOURS for 3 Not-Taking Jardiance 10 MG 1 tablet Orally Once a day Active Qvar RediHaler 80 MCG/ACT TAKE 1 PUFF BY MOUTH TWICE A DAY Not-Taking Atorvastatin Calcium 40 MG TAKE 1 TABLET BY MOUTH EVERY DAY Active Hydrocod Pravin-Chlorphe Pravin ER 10-8 MG/5ML 5 mL as needed Orally every 12 hrs as needed for 10 days 04/26/2023 Not-Taking Immunizations Vaccine Route Administration Date Status Comme nts Flu Vaccine IM Intramuscular 12/25/2011 Administered Flu Vaccine Unknown 11/19/2012 Administered flu vac giv en at [facility] Fluarix Quadrivalent IM Intramuscular 11/14/2013 Admintroy smiley Fluarix Quadrivalent IM Intramuscular 12/14/2014 Yashira smiley Prevnar 13 Unknown 07/22/2014 Administered [facility] [place] PPSV23 (Pnemovax) IM Intramuscular 10/11/2015 Administered Fluarix Quadrivalent IM Intramuscular 10/26/2015 Admintroy smiley Shingles Unknown 11/04/2012 Administered done at the [facility] Fluarix Quadrivalent IM Intramuscular 01/19/2017 Admintroy red Fluarix Quadrivalent IM Intramuscular 12/03/2017 Admintroy smiley TDaP Unknown 07/30/2006 Administered At the [facility] Fluarix Quadrivalent IM Intramuscular 11/05/2018 Admintroy smiley pt was given the vaccine at the [facility]. Influenza High Dose Unknown 11/04/2019 [facility] [place] [facility] SARS-COV-2 Moderna Unknown [...] Status Risk Notes Problem Carotid artery disease (531841879) Carotid artery disease (I77.9) Active confirmed Problem Dysphagia (46327980) Dysphagia (R13.10) Active confirmed Problem 478850508 Hypomagnesemia (E83.42) Active confirmed Problem 93772612 Hypercalcemia (E83.52) Active confirmed Problem 23122629 Other chronic pa in (G89.29) Active confirmed Problem 8264526 Panlobular emphysema (J43.1) Active confirmed Problem 019509908394957 Erectile dysfunction due to arterial insufficiency (N52.01) Active confirmed Problem 803637691 Lumbar disc disease (M51.9) Active confirmed Problem 67374576 Essential hypertension (I10) Active confirmed Problem 923883608 Prostate cancer (C61) Active confirmed Problem Psoriasis (0723955) Psoriasis (L40.9) Active co nfirmed Problem 43062120 Type 2 diabetes mellitus without complication (E11.9) Active confirmed Problem 45024676 Abdominal aortic aneurysm without rupture (I71.4) Active confirmed Problem 979514351 Low HDL (under 4 0) (E78.6) Active confirmed Problem 920102871 Anemia, unspecified anemia type (D64.9) Active confirmed Problem 812568638 High triglycerid es (E78.1) Active confirmed Problem 730192175 Cervical disc disease (M50.90) Active confirmed Problem 89453218 Intrinsic eczema (L20.84) Active confirmed Problem 293725264 Raynauds disease without gangrene (I73.00) Active confirmed Problem Gallstone (124208867) Gall stones (K80.20) Active confirmed Problem 096789242 COPD exacerbatio n (J44.1) Active confirmed Problem Atherosclerosis (66879277) Atherosclerosis (I70.90) Active confirmed Problem Leukocytosis (216313108) Elevated WBC count (D72.829) Active confirmed Problem 093647970 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) Active confirmed Problem Disorder of biliary tract (974490928) Bile leak (K83.9) Active confirmed Problem 325832747 Nodule of tongue (R22.0) Active confirmed Problem 05921982 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) Active confirmed Problem 746216770 COPD with exacerbation (J44.1) Active confirmed Problem 7041650164908259 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) Active confirmed Problem 302991772 Low blood magnesium (R79.0) Active confirmed Problem 471790127 Age-related incipient cataract of both eyes (H25.093) Active confirmed Problem 059174255 Arthritis, 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) Active confirmed Problem Ulcer of esophagus (52252168) Esophageal ulcer without bleeding (K22.10) Active confirmed Vital Signs Blood pressure diastolic 68 mm Hg 01/23/2025 rio ght is down 4 pounds -7-68 Height 70 in 01/23/2025 weight is down 4 pounds [id number] Blood pressure systolic 122 mm Hg 01/23/2025 weig ht is down 4 pounds -0-77 Weight 153 lbs 01/23/2025 weight is down 4 pounds -0-66 BMI 21.95 kg/m2 01/23/2025 weight is down 4 pounds [id number] Encounters Encounter Location Date Provider Diagnosis Kiko Coats MD [address] [place] [address] [id number] 11/13/2024 Kiko Coats Type 2 diabetes mellitus without complication E11.9 ; Encounter for administration of vaccine Z23 ; Essential hypertension I10 ; Low HDL (under 40) E78.6 ; Anemia, unspecified anemia type D64.9 and High triglycerides E78.1 Kiko Coats MD [address] [place] [address] [id number] 01/23/2025 Kiko Coats Abdominal pain R10.9 and Weight loss R63.4 Kiko Coats MD [address] [place] [address] [id number] 02/25/2024 Kiko Coats COPD with exacerbati on J44.1 Kiko Coats MD [address] [place] [address] [id number] 03/06/2024 Kiko Coats Lumbar disc disease M51.9 and Bronchitis J40 Kiko Coats MD [address] [place] [address] Drive [address] [place] [address] [id number] 05/09/2024 Kiko Coats Panlobular emphysema J43.1 ; Type 2 diabetes mellitus without complication E11.9 and Low HDL (under 40) E78.6 Kiko Coats MD [address] [place] [address] [id number] 08/04/2024 Kiko Coats Esophageal ulcer without bleeding K22.10 ; Panlobular emphysema J43.1 and Essential hypertension I10 Kiko Coats MD [address] [place] [address] [id number] 11/17/2024 Kiko Coats Panlobular emphysema J43.1 ; Tinea B35.9 ; Type 2 diabetes mellitus without complication E11.9 ; Prostate cancer C61 ; Essential hypertension I10 ; High triglycerides E78.1 ; Anemia, unspecified anemia type D64.9 and Depression screening Z13.31 Kiko Coats MD [address] [place] [address] [id number] 12/12/2024 Kiko Coats Gall stones K80.20 Kiko Coats MD [address] [place] [address] [id number] 01/19/2025 Kiko Coats Bile leak K83.9 Kiko Coats MD [address] [place] [address] [id number] 03/14/2024 Kiko Coats Lumbar disc disease M51.9 Kiko Coats MD [address] [place] [address] [id number] 07/24/2024 Kiko Coats MD [address] [place] [address] [id number] 07/31/2024 Kiko Coats MD [address] [place] [address] [id number] 09/19/2024 Kiko Coats MD [address] [place] [address] [id number] 10/07/2024 Kiko Coats MD [address] [place] [address] [id number] 12/25/2024 Kiko Coats MD [address] [place] [address] [id number] 12/26/2024 Kiko Coats MD [address] [place] [address] [id number] 01/01/2025 Kiko Coats MD [address] [place] [address] [id number] 11/07/2024 Kiko Coats Assessments Encounter Date Diagnosis (ICD Code) Assessment Notes Treatment Notes Treatment Clinical Notes Section Notes 11/13/2024 Type 2 diabetes mellitus without complication (ICD-10 - E11.9) 11/13/2024 Encounter for administration of vaccine (ICD-10 - Z23) 01/23/2025 Abdominal pain (ICD-10 - R10.9) Total time spent on the date of the encounter is 35 minutes including both face to face time spent and time spent reviewing documentation, pertinent lab data, studies and counseling the patient. 01/23/2025 Weight loss (ICD-10 - R63.4) 02/25/2024 COPD with exacerbation (ICD-10 - J44.1) patient verbalized understanding of medication and directions for use 03/06/2024 Lumbar disc disease (ICD-10 - M51.9) 03/06/2024 Bronchitis (ICD-10 - J40) patient verbalized understanding of medication and directions for use. x-ray order faxed to [facility] 05/09/2024 Panlobular emphysema (ICD-10 - J43.1) doing well using his updrafts once a day, will continue current regiment 08/04/2024 Esophageal ulcer without bleeding (ICD-10 - K22.10) need results of biopsy/ will send for results 11/17/2024 Panlobular emphysema (ICD-10 - J43.1) stable, will continue current regiment 11/17/2024 Tinea (ICD-10 - B35.9) 12/12/2024 Gall stones (ICD-10 - K80.20) order faxed to [facility] 01/19/2025 Bile leak (ICD-10 - K83.9) pending diagnostic testing Total time spent on the date of the encounter is 35 minutes including both face to face time spent and time spent reviewing documentation, pertinent lab data, studies and counseling the patient. 03/14/2024 Lumbar disc disease (ICD-10 - M51.9) 11/13/2024 Essential hypertension (ICD-10 - I10) 05/09/2024 Type 2 diabetes mellitus without complication [...] Depression screening (ICD-10 - Z13.31) negtive screen 01/23/2025 Other patient will be seeing Dr. Mosher 01-29-25 at 11:15am Plan Of Treatment Pending Test Test Name Order Date Electrocardiogram (EKG) 02/01/2018 Electrocardiogram (EKG) 02/14/2019 AMYLASE 01/23/2025 MRI LUMBAR SPINE NO CONTRAST 04/28/2022 XR CHEST 2 VIEW PA & LAT 03/06/2024 XR CHEST 2 VIEW PA & LAT 04/23/2023 US ABD 12/12/2024 US ABD 12/26/2022 Lipase 01/23/2025 ECG 30 day event monitor 01/10/2022 CT lumbar spine wo con 05/18/2022 MR elbow RT wo/w con 2022 MR lumbar spine wo con 11/13/2023 XR elbow RT min 3V 2022 Next Appt Details Provider Name:Kiko chatman, 01/30/2025 03:00:00 PM, [address] [facility], [address], [place], [place], [phone], Provider Name:Kiko De Leon ier, 05/14/2025 07:45:00 AM, [address], [address], [place], [phone], Provider Name:Kiko De Leon ier, 05/21/2025 09:00:00 AM, [address], [address], [place], [phone], Provider Name:Kiko De Leon ier, 12/10/2025 07:15:00 AM, [address], [address], [place], [phone], Provider Name:Kiko De Leon ier, 12/17/2025 09:30:00 AM, [address], [address], [place], [phone], Insurance Providers Payer Name Payer Address Payer Phone Subscriber Number Group Number Insured Name Patient Relationship to Insured Coverage Start Date Coverage End Date MEDICARE [employer] [address] [place] [address] [id number] Caro Mikal Self - patient is the insured [employer] [address] [place] [address] [phone] [id number] FransicoMikal brewer Self - patient is the insured Medical (General) History Medical History History ICD Code esophageal stricture hypercholesterolemia hypertension asthma - mild intermittent colonoscopy 02/2014 and [facility] [place] [facility] [place] probably not able to access those records but will be followed by them. possibly someone in [facility] did it colonoscopy and endoscopy 2022
== END 2025-01-29 11:43 | disposition home or self-care (01) ==
LOC: HO.HGS 11:03
PROVIDERS: PCP Internal Medicine; Visit Provider Surgery
DX: T81.89XA Other complications of procedures, not elsewhere classified, initial encounter (principal); K66.8 Other specified disorders of peritoneum
CPT/HCPCS: 99024

== ENCOUNTER → 2025-01-29 11:02 | Outpatient (BNVA) | payer MEDICARE, OTHER, SELFPAY | PROVIDERS: PCP Internal Medicine; Visit Provider Surgery | DX: T81.89XA Other complications of procedures, not elsewhere classified, initial encounter (principal); K66.8 Other specified disorders of peritoneum | CPT/HCPCS: 99212 ==

== ENCOUNTER 2025-01-31 08:47 | Outpatient (REF) | payer MEDICARE, OTHER, SELFPAY ==
--- OUTSIDE RECORDS SUMMARY | 2024-11-07 05:45 | XMS_ITS ---
Author Organization Kiko Coats MD Address [address] [place] [phone] Care Team Providers Care Combination Machine Tool Setter Name Role Phone Kiko Coats Primary Care Provider REASON FOR VISIT RE: Annual Patient Experience Survey Encounters Encounter Location Date Provider Diagnosis Kiko Coats MD [address] [place] [address] [address] [place] [phone] 11/07/2024 Kiko Coats Plan Of Treatment Next Appt Details Provider Name:Kiko chatman, 02/16/2025 10:15:00 AM, [address] [place] [address], [address], [phone], Provider Name:Kiko chatman, 05/14/2025 07:45:00 AM, [address] [place] [address], [address], [phone], Provider Name:Kiko De Leon ier, 05/21/2025 09:00:00 AM, [address], [address], [place], [place], [phone], Provider Name:Kiko De Leon ier, 12/10/2025 07:15:00 AM, [address] [place] [address] Drive, [address], [place], [place], [phone], Provider Name:Kiko De Leon ier, 12/17/2025 09:30:00 AM, [address] [place] [address] Drive, [address], [place], [place], [phone], Progress Notes * Mikal DENNYDOB: [birth year] (74 yo M)Acc No.[id number]:11/07/2024 Patient: Mikal VITALE :1950 A ge:74 Y S ex:Male Address:[address], [place] [address] * true * Date: Generated for Maryam fontaine/Pamela/eTransmitting on: 04/03/2024 08:54 AM EST
--- OUTSIDE RECORDS SUMMARY | 2024-11-13 03:00 | XMS_ITS ---
Author Organization Kiko Coats MD Address [address] [place], [place] [id number] Care Team Providers Care Green Tire Inspector Name Role Phone Jorge LTian Primary Care Provider Results Component Value Reference Range Notes Complete Blood Count Auto Di ff Reviewed date:11/13/2024 04:28:00 PM Interpretation: Performing Lab:[facility], [address] [place] [phone] Notes/Report: White Blood Count 9.2 4.8-10.8 X10*3/uL [...] NRBC Abs Auto 0.000 0.0-0.012 X10*3/uL Comprehensive [place]. Panel Fa st Reviewed date:11/13/2024 04:28:23 PM Interpretation: Performing Lab:[facility], [address] [place] [phone] Notes/Report: Sodium 142 135-145 mmol/L Potassium 3.9 [...] PROFILE Reviewed date:11/13/2024 04:19:48 PM Interpretation: Performing Lab:[facility], [address] [place] [phone] Notes/Report: Iron 63 45-160 mcg/dL Total Iron Binding Capacity 244 228-428 mcg/d L Percent Iron Saturation 26 15-50 % Unsaturated Iron Binding 181 Lipid Panel Reviewed date:11/13/2024 04:24:20 PM Interpretation: Performing Lab:[facility], [address] [place] [phone] Notes/Report: Triglycerides 283 <150 mg/dL Desirable Triglyceride: [...] (Free>4and<10) Reviewed date:11/13/2024 04:24:30 PM Interpretation: Performing Lab:[address] [phone] Notes/Report: PSA,Total (Free>4and<10) < 0.10 0.00-4.00 ng/mL [...] Random Reviewed date:11/13/2024 04:25:27 PM Interpretation: Performing Lab:[address] [phone] Notes/Report: Creatinine Urine 70.25 Microalbumin Urine 79.0 Microalbum/Creatinine Ratio Ur 112.4 <30 ug/mg cr Albumin/Creatinine Ratio Reference Ranges: Normal: < 30 ug/mg creatinine Microalbuminuria: 30 - 300 ug/mg creatinine Clinical Albuminuria: > 300 ug/mg creatinine Hemoglobin A1c Reviewed date:11/13/2024 04:19:36 PM Interpretation: Performing Lab:[address] [phone] Notes/Report: Hemoglobin A1c % 6.3 <6.0 % [...] average glucose, using the formula of the K0Y-Xgixruk Average Glucose study (ADAG), Diabetes Care, Vol.31,#8, Sep. 2007 UA ClnCatch+Micro w/rflx Cul t Reviewed date:11/13/2024 04:28:44 PM Interpretation: Performing Lab:[address] [phone] Notes/Report: [id number] 0800 Urine, Clean Catch Color Urine Yellow Appearance Urine Clear PH 7.0 5.0-9.0 Glucose Urine UA >=1000 Negative mg/dL Urine Blood Negative Negative Specific [place] - Urine 1.010 1.005-1.025 Urine Protein Trace [...] Location Date Provider Diagnosis Kiko Coats MD [address] [place] [phone] 11/13/2024 Kiko Coats Type 2 diabetes mellitus [...] Details Provider Name:Kiko chatman, 02/16/2025 10:15:00 AM, [address] [place] [address], [phone], Provider Name:Kiko chatman, 05/14/2025 07:45:00 AM, [address] [place] [address], [address], [phone], Provider Name:Kiko chatman, 05/21/2025 09:00:00 AM, [address] [place] [address], [phone], Provider Name:Kiko chatman, 12/10/2025 07:15:00 AM, [address] [place] [address], [phone], Provider Name:Kiko De Leon ier, 12/17/2025 09:30:00 AM, [address], [address], [place], [phone], Progress Notes * Mikal DENNYDOB: [birth year] (74 yo M)Acc No.[id number]:11/13/2024 Progress Note Patient: Mikal VITALE Provider: La Coats MD :1950 A ge:74 Y S ex:Male Date:11/13/2024 Address:[address], [id number] Subjective: * Chief Complaints: * 1 . [...] - 11/13/2024 08:00 AM) L AB: Comprehensive [place]. Panel Fast (Collection Date & Time - [...] - 11/13/2024 08:00 AM) L AB: Comprehensive [place]. Panel Fast (Collection Date & Time - [...] - 11/13/2024 08:00 AM) L AB: Comprehensive [place]. Panel Fast (Collection Date & Time - [...] - 11/13/2024 08:00 AM) L AB: Comprehensive [place]. Panel Fast (Collection Date & Time - [...] * Procedure Codes: 3 6415 VENIPUNCT, ROUTINE*, 00447 FLU VACC PRSV FREE INC ANTIG, G0008 [...] 11/13/2024 Generated for Maryam fontaine/Pamela/Tishitting on: 1 04/03/2024 08:53 AM EST
--- OUTSIDE RECORDS SUMMARY | 2024-11-17 05:30 | XMS_ITS ---
Author Organization Kiko Coats MD Address [address] [place], [place] [id number] Care Team Providers Care Linotype Worker Name Role Phone Kiko Coats Primary Care Provider Allergies No Known Allergies REASON FOR VISIT review labs Medications Medication SIG (Take, Route, Frequency, Duration) Notes Start Date End Date Status Qvar RediHaler 80 MCG/ACT TAKE 1 PUFF BY MOUTH TWICE A DAY Not-Taking valACYclovir HCl 1 GM TAKE 2 TABLETS BY MOUTH EVERY 12 HOURS for 3 Not-Taking ProAir HFA 108 (90 Base) MCG/ACT 2 puffs as needed Inhalation every 4 hrs for 30 days Not-Taking Betamethasone Dipropionate 0.05 % as directed Externally daily for 30 days 02/10/2011 Not-Taking Ipratropium-Albuterol 0.5-2.5 (3) MG/3ML INHALE 1 VIAL EVERY 4 HOURS NEEDED INHALATION EVERY 6 HRS 30 DAYS Inhalation every 6 hrs for 30 days Active Hydrocod Pravin-Chlorphe Pravin ER 10-8 MG/5ML 5 [...] 4 days for 14 days 02/25/2024 Not-Taking Meloxicam 15 MG TAKE 1 TABLET BY DEBORAH TH ONCE A DAY AFTER A MEAL for 30 Active Vitamin C 500 MG as directed Orally Not-Taking Ketoconazole 2 % 1 application Externally Once a day for 30 days 11/17/2024 Active Magnesium Oxide -Mg Supplement 400 (240 Mg) MG TAKE 2 TABLETS BY MOUTH ONCE DAILY WITH FOOD FOR 30 DAYS Not-Taking traMADol HCl 50 MG 2 tabs as needed Ora lly Once a day for 30 days 07/24/2024 Not-Juwan gerber Sucralfate 1 GM 1 tablet on an empty stomach Orally 4 times a day for 30 days 09/22/2024 Not-Taking Levalbuterol Tartrate 45 MCG/ACT INHALE 2 PUFFS NEEDED EVERY 4 HOURS FOR 30 DAYS INHALATION EVERY 6 HRS Active Carvedilol 25 MG 1 tablet with food Orally Twice a day Active amLODIPine Besylate 5 MG TAKE 1 TABLET B Y MOUTH ONCE A DAY FOR 30 DAY(S) Orally Once a day Active RABEprazole Sodium 20 MG 1 tablet 1/2 to 1 hour before a meal Orally Once a day for 90 days 09/22/2024 Active Jardiance 10 MG 1 tablet Orally Once a day Active Atorvastatin Calcium 40 MG TAKE 1 TABLET BY MOUTH EVERY DAY Active Ferrous Gluconate 324 (38 Fe) MG 1 tablet Orally once a day Active Stiolto Respimat 2.5-2.5 MCG/ACT INHALE 2 PUFFS INTO THE LUNGS ONCE DAILY Not-Taking Cialis 20 MG 1 tablet Orally Once a day Active Multi Vitamin Daily - 1 tablet Orally On ce a day for 30 day(s) Active Aspir-81 81 MG 1 tablet Orally Once a day for 30 day(s) Active PreserVision AREDS 2 - as directed Orally Active Triamcinolone Acetonide 0.5 % 1 application Externally Once a day for 14 days 11/15/2020 Active Social History Tobacco Use: Social History Observation [...] Never (0 point) Points 1 Interpretation Negative Vital Signs Blood pressure systolic 136 mm Hg 11/18/19 25 Blood pressure diastolic 60 mm Hg 025 Height 70 in 11/17/2024 Weight 173 lbs 11/17/2024 BMI 24.82 kg/m2 11/17/2024 weight is down 3 pounds [facility] 08-04-24 Encounters Encounter Location Date Provider Diagnosis Kiko Coats MD [address] [place] [address] [place] [phone] 11/17/2024 Kiko Coats Panlobular emphysema J43.1 ; Tinea B35.9 ; Type 2 diabetes mellitus without complication E11.9 ; Prostate cancer C61 ; Essential hypertension I10 ; High triglycerides E78.1 ; Anemia, unspecified anemia type D64.9 and Depression screening Z13.31 Assessments Encounter Date Diagnosis (ICD Code) Assessment Notes Treatment Notes Treatment Clinical Notes Section Notes 11/17/2024 Panlobular emphysema (ICD-10 - J43.1) stable, will continue current regiment 11/17/2024 Tinea (ICD-10 - B35.9) 11/17/2024 Type 2 diabetes mellitus without complication (ICD-10 - E11.9) good a1c, will continue current regiment 11/17/2024 Prostate cancer (ICD-10 - C61) no sign of recurrance 11/17/2024 Essential hypertension (ICD-10 - I10) stable, will continue current regiment 11/17/2024 High triglycerides (ICD-10 - E78.1) stable, will continue current regiment 11/17/2024 Anemia, unspecified anemia type (ICD-10 - D64.9) stable, will continue current regiment 11/17/2024 Depression screening (ICD-10 - Z13.31) negtive screen Plan Of Treatment Medication Medication Name Sig Start Date Stop Date Notes Ipratropium-Albuterol 0.5-2. 5 (3) MG/3ML INHALE 1 VIAL EVERY 4 HOURS NEEDED INHALATION EVERY 6 HRS 30 DAYS Inhalation every 6 hrs for 30 days Ketoconazole 2 % 1 application Refrigerator Repair Technician ally Once a day for 30 days 11/17/2024 Levalbuterol Tartrate 45 MCG/ACT INHALE 2 PUFFS NEEDED EVERY 4 HOURS FOR 30 DAYS INHALATION EVERY 6 HRS Carvedilol 25 MG 1 tablet with food O rally Twice a day amLODIPine Besylate 5 MG TAKE 1 TABLET B Y MOUTH ONCE A DAY FOR 30 DAY(S) Orally Once a day Jardiance 10 MG 1 tablet Orally Once a day Atorvastatin Calcium 40 MG TAKE 1 TABLET BY MOUTH EVERY DAY Ferrous Gluconate 324 (38 Fe ) MG 1 tablet Orally once a day Treatment Notes Assessment Notes Panlobular emphysema stable, will contin ue current regiment Type 2 diabetes mellitus wit hout complication good a1c, will continue current regiment Prostate cancer no sign of recurranc e Essential hypertension stable, will cont inue current regiment High triglycerides stable, will continu e current regiment Anemia, unspecified anemia type stable, will continue current regiment Depression screening negtive screen Next Appt Details Follow Up: 6 Months, Reason: Provider Name:Kiko chatman, 02/16/2025 10:15:00 AM, [address] [place] [address] [employer], [address], [place], [phone], Provider Name:Kiko chatman, 05/14/2025 07:45:00 AM, [address] [place] [address], [address], [place], [phone], Provider Name:Kiko chatman, 05/21/2025 09:00:00 AM, [address], [address], [place], [place], [phone], Provider Name:Kiko De Leon ier, 12/10/2025 07:15:00 AM, [address], [address], [place], [place], [phone], Provider Name:Kiko De Leon ier, 12/17/2025 09:30:00 AM, [address], [address], [place], [phone], Progress Notes * Mikal DENNYDOB: [birth year] (74 yo M)Acc No.[id number]:11/17/2024 Patient: Mikal VITALE Provider: La Coats MD :1950 A ge:74 Y S ex:Male Date:11/17/2024 Address[address], [place], [place] Subjective: * Chief Complaints: * R eview labs * HPI: D epression Screening: PHQ-9 L ittle interest or pleasure in doing things N ot at all, F eeling down, depressed, or hopeless N ot at all, T rouble falling or staying asleep, or sleeping too much N ot at all, F eeling tired or having little energy N ot at all, P oor appetite or overeating N ot at all, F eeling bad about yourself or that you are a failure, or have let yourself or your family down N ot at all, T rouble concentrating on things, such as reading the newspaper or watching television N ot at all, M oving or speaking so slowly that other people could have noticed; or the opposite, being so fidgety or restless that you have been moving around a lot more than usual N ot at all, T houghts that you would be better off or of hurting yourself in some way N ot at all, T otal Score 0 . I nterpretation and Intervention D epression Screening Findings N egative, F ollow-Up for Depression : review of PHQ-9 found negative result, no follow-up needed. C ommunication Needs: Communication Needs D oes the patient have a hearing impairment N o, D oes the patient have a vision impairment? Y es, I f yes, what is the vision impairment? G lasses, D oes the patient have a cognition impairment? N o. F all Risk: History H ave you had any falls with injury in the past year? N o, H ave you had two or more falls in the past year? N o. S DAVI Questions: SDOH Questions I n the past year have you been worried about losing housing? N o, I n the past year have you or any family members you live with been unable to get any of the following when it was really needed? Check all that apply: N one. S ymptom(s): patient is a 74 yo male here for reviewof recent labs and follow up of chronic issues. * ROS: G eneral/Constitutional: Change in appetite d enies. C hills d enies. F ever d enies. O phthalmologic: Blurred vision d enies. D ischarge d enies. P ain d enies. E NT: Decreased hearing d enies. S ore throat d enies.?Swollen glands d enies. E ndocrine: Cold intolerance d enies. E xcessive thirst d enies. H eat intolerance d enies. W eight loss d enies. R espiratory: Cough d enies. S hortness of breath at rest d enies. S hortness of breath with exertion d enies. W heezing d enies. C ardiovascular: Chest pain at rest d enies. C hest pain with exertion?denies. I rregular heartbeat d enies. S hortness of breath d enies. ? G astrointestinal: Abdominal pain d enies. C hange in bowel habits d enies. D iarrhea d enies. N ausea d enies. R ectal bleeding d enies. V omiting d enies . G enitourinary: Blood in urine d enies. D ifficulty urinating d enies. F requent urination d enies. M usculoskeletal: Painful joints d enies. W eakness d enies. ? S kin: Dry skin d enies. I tching d enies. D enies?Mole(s), changes in moles, new moles or any lesions of concern. D enies P hotosensitivity. R deja d enies. N eurologic: Dizziness d enies. F ainting d enies. H eadache?denies. * Medical History: * Surgical History: * Hospitalization/Major Diagno stic Procedure: * Family History: F ather: 42 yrs. M other: 98 yrs. 1 brother(s) , 1 sister(s) . 3 daughter(s) . . stomach ulcers Father- duodenal ulcer Mother - old age, No pertinent family medical history, Denies mental health/substance abuse family history, Denies mental health/substance abuse family history, Denies mental health/substance abuse family history. * Social History: T obacco Use: T obacco Use/Smoking P atient is a f ormer smoker, A dditional Findings: Tobacco Non-User F ormer smoker, currently using no form of tobacco. D rugs/Alcohol: A lcohol Screen D id you have a drink containing alcohol in the past year? Y es, H ow often did you have a drink containing alcohol in the past year? M onthly or less (1 point), H ow many drinks did you have on a typical day when you were drinking in the past year? 1 or 2 drinks (0 point), H ow often did you have 6 or more drinks on one occasion in the past year? N ever (0 point), P oints 1 , I nterpretation N egative. M iscellaneous: C affeine: yes, frequency:, 2-3 cups per day. Children: yes. Community involvements: no. Exercise: no, gols 2 times a week. Housing: owning. Living with: spouse. Marital status: . Occupation: retired. Pets: none. * Medications: T akingPreserVision AREDS 2 - Capsule as directed Orally Aspir-81 81 MG Tablet Delayed Release 1 tablet Orally Once a day Multi Vitamin Daily - Tablet 1 tablet Orally Once a day Triamcinolone Acetonide 0.5 % Cream 1 application Externally Once a day Cialis 20 MG Tablet 1 tablet Orally Once a day Ferrous Gluconate 324 (38 Fe) MG Tablet 1 tablet Orally once a day Atorvastatin Calcium 40 MG Tablet TAKE 1 TABLET BY MOUTH EVERY DAY Jardiance 10 MG Tablet 1 tablet Orally Once a day amLODIPine Besylate 5 MG Tablet TAKE 1 TABLET BY MOUTH ONCE A DAY FOR 30 DAY(S) Orally Once a day Carvedilol 25 MG Tablet 1 tablet with food Orally Twice a day Ipratropium-Albuterol 0.5-2.5 (3) MG/3ML Solution INHALE 1 VIAL EVERY 4 HOURS NEEDED INHALATION EVERY 6 HRS 30 DAYS Levalbuterol Tartrate 45 MCG/ACT Aerosol INHALE 2 PUFFS NEEDED EVERY 4 HOURS FOR 30 DAYS INHALATION EVERY 6 HRS RABEprazole Sodium 20 MG Tablet Delayed Release 1 tablet 1/2 to 1 hour before a meal Orally Once a day Meloxicam 15 MG Tablet TAKE 1 TABLET BY MOUTH ONCE A DAY AFTER A MEAL Taking PreserVision AREDS 2 - Capsule as directed Orally Taking Aspir-81 81 MG Tablet Delayed Release 1 tablet Orally Once a day Taking Multi Vitamin Daily - Tablet 1 tablet Orally Once a day Taking Triamcinolone Acetonide 0.5 % Cream 1 application Externally Once a day Taking Cialis 20 MG Tablet 1 tablet Orally Once a day Taking Ferrous Gluconate 324 (38 Fe) MG Tablet 1 tablet Orally once a day Taking Atorvastatin Calcium 40 MG Tablet TAKE 1 TABLET BY MOUTH EVERY DAY Taking Jardiance 10 MG Tablet 1 tablet Orally Once a day Taking amLODIPine Besylate 5 MG Tablet TAKE 1 TABLET BY MOUTH ONCE A DAY FOR 30 DAY(S) Orally Once a day Taking Carvedilol 25 MG Tablet 1 tablet with food Orally Twice a day Taking Ipratropium-Albuterol 0.5-2.5 (3) MG/3ML Solution INHALE 1 VIAL EVERY 4 HOURS NEEDED INHALATION EVERY 6 HRS 30 DAYS Taking Levalbuterol Tartrate 45 MCG/ACT Aerosol INHALE 2 PUFFS NEEDED EVERY 4 HOURS FOR 30 DAYS INHALATION EVERY 6 HRS Taking RABEprazole Sodium 20 MG Tablet Delayed Release 1 tablet 1/2 to 1 hour before a meal Orally Once a day Taking Meloxicam 15 MG Tablet TAKE 1 TABLET BY MOUTH ONCE A DAY AFTER A MEAL Not-Taking/PRNStiolto Respimat 2.5-2.5 MCG/ACT Aerosol Solution INHALE 2 PUFFS INTO THE LUNGS ONCE DAILY Sucralfate 1 GM Tablet 1 tablet on an empty stomach Orally 4 times a day Vitamin C 500 MG Capsule as directed [...] List reviewed and reconciled with the patientNot-Taking/PRN Stiolto Respimat 2.5-2.5 MCG/ACT Aerosol Solution INHALE 2 PUFFS INTO THE LUNGS ONCE DAILY Not-Taking/PRN Sucralfate 1 GM Tablet 1 tablet on an empty stomach Orally 4 times a day Not-Taking/PRN Vitamin C 500 MG Capsule as [...] Objective: * Vitals: H t: 70, Wt: 173, BMI:24.82, BP:136/60, Wt-k.47. weight is down 3 pounds since 08-04-24. * P ast Orders: L ab:Complete Blood Count Auto Diff (Order Date - 11/13/2024) (Collection Date & Time - 11/13/2024 08:00 AM) Value Reference Range White Blood Count 9.2 4.8-10.8 - X10*3/uL Red Blood Count 4.45 L 4.60-5.80 - X10*6/uL Hemoglobin 13.1 L 14.0-18.0 - g/dl Hematocrit 41.0 L 42.0-52.0 - % Mean Corpuscular Volume 92.1 80.0-98.0 - fL Mean Corpuscular Hemoglobin 29.4 27.0-33.0 - pg Mean Corpuscular HGB Conc 32.0 31.0-36.0 - g/ dl Red Cell Distribution Width 15.9 11.0-16.0 - % Platelet Count 176 160-400 - X10*3/uL Mean Platelet Volume 11.7 9.4-12.4 - fL Neutrophils Percent Auto 69.4 45-73 - % Imm Gran Pct Auto 0.8 H 0.0-0.4 - % Lymphocytes Percent Auto 15.9 L 20-40 - % Monocytes Percent Auto 9.8 2-11 - % Eosinophils Percent Auto 2.8 0-4 - % Basophils Percent Auto 1.3 0-2 - % NRBC Pct Auto 0.0 0.0-0.2 - /100WBC Neutrophils Absolute Auto 6.4 2.0-8.3 - x10* 3/uL Imm Gran Abs Auto 0.07 H 0.00-0.03 - X10*3/uL Lymphocytes Absolute Auto 1.5 1.2-4.9 - X10* 3/uL Monocytes Absolute Auto 0.9 0.1-1.2 - X10*3/ uL Eosinophils Absolute Auto 0.3 0.0-0.4 - X10* 3/uL Basophils Absolute Auto 0.1 0.0-0.2 - X10*3/ uL NRBC Abs Auto 0.000 0.0-0.012 - X10*3/uL L ab:Hemoglobin A1c (Order Date - 11/13/2024) (Collection Date & Time - 11/13/2024 08:00 AM) Value Reference Range Hemoglobin A1c % 6.3 H <6.0 - % Estimated Average Glucose 134 - mg/dL L ab:Comprehensive [facility]. Panel Fast (Order Date - 11/13/2024) (Collection Date & Time - 11/13/2024 08:00 AM) Value Reference Range Sodium 142 135-145 - mmol/L Bilirubin Total 0.8 0.0-1.0 - mg/dL Aspartate Amino Transferase 22 5-37 - U/L Alanine Aminotransferase 18 0-40 - U/L Total Protein 7.3 6.5-8.0 - g/dL Albumin Level 4.4 3.5-5.0 - g/dL Alkaline Phosphatase 81 39-117 - U/L Potassium 3.9 3.3-5.1 - mmol/L Chloride 104 96-108 - mmol/L Carbon Dioxide 29 22-29 - mmol/L Anion Gap 13 12-20 - Blood Urea Nitrogen 16 9-16 - mg/dL Creatinine 1.36 0.5-1.4 - mg/dL Estimated Glomerular Filt Rate 51 - Glucose Fasting 130 H 60-99 - mg/dL Calcium 9.0 8.4-10.2 - mg/dL * Examination: G eneral Examination: GENERAL APPEARANCE: w ell developed, well nourished, in no acute distress. HEAD: n ormocephalic, atraumatic. EYES: p upils equal, round, reactive to light and accommodation, sclera non-icteric. EARS: n ormal. ORAL CAVITY: m ucosa moist. THROAT: c lear. NECK/THYROID: n sandy supple, full range of motion, no cervical lymphadenopathy, no bruits. SKIN: w arm and dry, no suspicious lesions. HEART: r egular rate and rhythm, S1, S2 normal, no murmurs.? LUNGS: c lear to auscultation bilaterally. ABDOMEN: s oft, nontender, nondistended, bowel sounds present, normal, no organomegaly , no masses palpable. RECTAL EXAM: d eclined. MALE GENITOURINARY: d eclined. EXTREMITIES: n o clubbing, cyanosis, or edema with slight prominence of the clavicle head. NEUROLOGIC: n onfocal, motor strength normal upper and lower extremities, sensory exam intact. Assessment: * Assessment: 1. P anlobular emphysema - J43.1 (Primary) 2 . T inea - B35.9 ?3. T ype 2 diabetes mellitus without complication - E11.9 4 . P rostate cancer - C61 5 . E ssential hypertension - I10 6 . H igh triglycerides - E78.1 7 . A nemia, unspecified anemia type - D64.9 8 . D epression screening - Z13.31 Plan: * Treatment: 2. T inea Start Ketoconazole Cream, 2 %, 1 application, Externally, Once a day, 30 days, 60, Refills 5. ? 3. T ype 2 diabetes mellitus without complication Continue Jardiance Tablet, 10 MG, 1 tablet, Orally, Once a day. Notes: good a1c, will continue current regiment 4. P rostate cancer Notes: no sign of recurrance 5. E ssential hypertension Continue amLODIPine Besylate Tablet, 5 MG, TAKE 1 TABLET BY MOUTH ONCE A DAY FOR 30 DAY(S), Orally, Once a day; C ontinue Carvedilol Tablet, 25 MG, 1 tablet with food, Orally, Twice a day. ? Notes: stable, will continue current regiment 6. H igh triglycerides Continue Atorvastatin Calcium Tablet, 40 MG, TAKE 1 TABLET BY MOUTH EVERY DAY. Notes: stable, will continue current regiment 7. A nemia, unspecified anemia type Continue Ferrous Gluconate Tablet, 324 (38 Fe) MG, 1 tablet, Orally, once a day. Notes: stable, will continue current regiment 8. D epression screening Notes: negtive screen * Procedure Codes: G 2211 Complex e/m visit add on * Preventive Medicine: Diabetes Care Plan: P atient Lifestyle Goals N eeds to maintain diet control.?Treatment Goals A 1C< 7. B arriers N o specific barriers, doing well. E xpected Outcome m aintaining stable blood sugar levels within a target range. COPD Care Plan: P atient Lifestyle Goals R elieve symptoms and improve quality of life. T reatment Goals t karl medicine exactly as precribed and plan for RX refills. B arriers N o Specific barriers. E xpected Outcome i mproving quality of life. * Follow Up: 6 Months * * Sign off status: Completed true * Provider: La Coats MD Date: 0 11/17/2024 Generated for Maryam fontaine/Pamela/Veronikaransmitting on: 1 04/03/2024 08:52 AM EST History and Physical Notes * HPI (History of Present Illness) Category Sub-Category Detail Notes Category Not es Symptom(s) patient is a 74 yo male here for reviewof recent labs and follow up of chronic issues Depression Screening PHQ-9 Little inte rest or pleasure in doing things: Not at all Feeling down, depressed, or hopeless: No t at all Trouble falling or staying asleep, or sl eeping too much: Not at all Feeling tired or having little energy: N ot at all Poor appetite or overeating: Not at all Feeling bad about yourself o r that you are a failure, or have let yourself or your family down: Not at all Trouble concentrating on thi ngs, such as reading the newspaper or watching television: Not at all Moving or speaking so slowly that other people could have noticed; or the opposite, being so fidgety or restless that you have been moving around a lot more than usual: Not at all Thoughts that you would be b dain off or of hurting yourself in some way: Not at all Total Score: 0 Interpretation and Intervention Depression Scree joseph Findings: Negative Follow-Up for Depression: : review of PH Q-9 found negative result, no follow-up needed SDOH Questions SDOH Questions In the past year have you been worried about losing housing?: No In the past year have you or any family members you live with been unable to get any of the following when it was really needed? Check all that apply:: None Fall Risk History Have you had any falls with injury i n the past year?: No Have you had two or more falls in the year?: No Communication Needs Communication Needs Does the patient have a hearing impairment: No Does the patient have a vision impairmen t?: Yes If yes, what is the vision impairment?: Glasses Does the patient have a cognition impair ment?: No Examination Category Sub-Category Detail Notes Category Not es General Examination GENERAL APPEARANCE: well dev eloped, well nourished, in no acute distress HEAD: normocephalic, atrau matic EYES: pupils equal, round, reactive to light and accommodation, sclera non-icteric EARS: normal THROAT: clear NECK/THYROID: neck supple, full ra nge of motion, no cervical lymphadenopathy, no bruits HEART: regular rate and rhy thm, S1, S2 normal, no murmurs LUNGS: clear to auscultatio n bilaterally ABDOMEN: soft, nontender, non distended, bowel sounds present, normal, no organomegaly , no masses palpable NEUROLOGIC: nonfocal, motor stre ngth normal upper and lower extremities, sensory exam intact SKIN: warm and dry, no onel picious lesions EXTREMITIES: no clubbing, cyanosi s, or edema with slight prominence of the clavicle head MALE GENITOURINARY: declined RECTAL EXAM: declined ORAL CAVITY: mucosa moist
--- OUTSIDE RECORDS SUMMARY | 2024-12-12 06:45 | XMS_ITS ---
Author Organization Kiko Coats MD Address [address] [place], [place] [phone] Care Team Providers Care Inspector Filter Tip Name Role Phone Kiko Coats Primary Care [...] Status W/U Status Risk Notes Problem Gallstone (532754865) Gall stones (K80.20) Active confirmed Vital Signs Blood pressure systolic 124 mm Hg 12/13/19 25 Blood pressure diastolic 60 mm Hg 025 Height 70 in 12/12/2024 Weight 168 lbs 12/12/2024 BMI 24.1 kg/m2 12/12/2024 weight is down 5 [facility] 11-17-24 Encounters Encounter Location Date Provider Diagnosis Kiko Coats MD [address] [place] [address] [place] [phone] 12/12/2024 Kiko Coats Gall stones K80.20 Assessments Encounter Date Diagnosis (ICD Code) Assessment Notes Treatment Notes Treatment Clinical Notes Section Notes 12/12/2024 Gall stones (ICD-10 - K80.20) order faxed to [facility] [place] dept Plan Of Treatment Treatment Notes Assessment Notes Gall stones order faxed to [facility] s dept Pending Test Test Name Order Date US ABD 12/12/2024 Next Appt Details Follow Up: after us, Reason: Provider Name:Kiko chatman, 02/16/2025 10:15:00 AM, [address] [place] [address], [address], [phone], Provider Name:Kiko de la or, 05/14/2025 07:45:00 AM, [address] [place] [address], [address], [phone], Provider Name:Kiko De Leon ier, 05/21/2025 09:00:00 AM, [address] [place] [address], [address], [phone], Provider Name:Kiko de la or, 12/10/2025 07:15:00 AM, [address] [place] [address], [address], [phone], Provider Name:Kiko de la or, 12/17/2025 09:30:00 AM, [address] [place] [address], [address], [phone], Progress Notes * Mikal DENNYDOB: [birth year] (74 yo M)Acc No.[id number]:12/12/2024 Progress Notes Patient: Mikal VITALE Provider: La Coats MD :1950 A ge:74 Y S ex:Male Date:12/12/2024 Address:[address], [place], [id number] Subjective: * Chief Complaints: * S TOMACH [...] MD Date: Generated for Maryam fontaine/Pamela/Travis on: 04/03/2024 08:54 AM EST History and Physical Notes * Examination Category Sub-Category Detail Notes Category Not es General Examination GENERAL APPEARANCE: alert, w ell hydrated, in no distress ABDOMEN: no hepatosplenomegal y, no hepatosplenomegaly, abnormal with tender ruq.
--- OUTSIDE RECORDS SUMMARY | 2024-12-25 04:58 | XMS_ITS ---
Author Organization Kiko Coats MD Address [address] [place] [phone] Care Team Providers Care I&C Tech Name Role Phone Jorge LTian Primary Care Provider REASON FOR VISIT us abd result Encounters Encounter Location Date Provider Diagnosis Kiko Coats MD [address] [place] [address] [place] [phone] 12/25/2024 Kiko Coats Plan Of Treatment Next Appt Details Provider Name:Kiok chatman, 02/16/2025 10:15:00 AM, [address] [place] [address], [address], [phone], Provider Name:Kiko chatman, 05/14/2025 07:45:00 AM, [address] [place] [address], [address], [phone], Provider Name:Kiko de la or, 05/21/2025 09:00:00 AM, [address] [facility], [address], [place], [place], [phone], Provider Name:Kiko De Leon ier, 12/10/2025 07:15:00 AM, [address] [place] [address], [address], [place], [place], [phone], Provider Name:Kiko De Leon ier, 12/17/2025 09:30:00 AM, [address] [place] [address], [address], [place], [place], [phone], Progress Notes * CELSAHAILEMikalDOB: [birth year] (74 yo M)Acc No.[id number]:12/25/2024 Patient: Mikal VITALE :1950 A ge:74 Y S ex:Male Address:[address], [place] [address] * true * Date: Generated for Maryam fontaine/Pamela/eTransmitting on: 04/03/2024 08:52 AM EST
--- OUTSIDE RECORDS SUMMARY | 2024-12-26 09:35 | XMS_ITS ---
Author Organization Kiko Coats MD Address [address] [place] [phone] Care Team Providers Care Computer Technician Name Role Phone Jorge L Kiko Primary Care Provider Encounters Encounter Location Date Provider Diagnosis Kiko Coats MD [address] [place] [address] [place] [phone] 12/26/2024 Kiko Coats Plan Of Treatment Next Appt Details Provider Name:Kiko De Leon ier, 02/16/2025 10:15:00 AM, [address] [place] [address], [address], [phone], Provider Name:Kiko de la or, 05/14/2025 07:45:00 AM, [address] [place] [address], [address], [phone], Provider Name:Kiko de la or, 05/21/2025 09:00:00 AM, [address], [address], [place], [place], [phone], Provider Name:Kiko De Leon ier, 12/10/2025 07:15:00 AM, [address] [place] [address], [address], [place], [place], [phone], Provider Name:Kiko De Leon ier, 12/17/2025 09:30:00 AM, [address] [place] [address], [address], [place], [place], [phone], Progress Notes * CELSAHAILEMikalDOB: [birth year] (74 yo M)Acc No.[id number]:12/26/2024 Patient: Mikal VITALE :1950 A ge:74 Y S ex:Male Address:[address], [place] [address] * true * Date: Generated for Maryam fontaine/Pamela/eTransmitting on: 04/03/2024 08:53 AM EST
--- OUTSIDE RECORDS SUMMARY | 2025-01-01 08:23 | XMS_ITS ---
Author Organization Kiko Coats MD Address [address] [place] [phone] Care Team Providers Care Headwaitress Name Role Phone Kiko Coats Primary Care Provider REASON FOR VISIT ER Encounters Encounter Location Date Provider Diagnosis Kiko Coats MD [address] [facility] [address] [place] [phone] 01/01/2025 Kiko Coats Plan Of Treatment Next Appt Details Provider Name:Kiko chatman, 02/16/2025 10:15:00 AM, [address] [place] [address], [address], [phone], Provider Name:Kiko chatman, 05/14/2025 07:45:00 AM, [address] [place] [address], [address], [phone], Provider Name:Kiko chatman, 05/21/2025 09:00:00 AM, [address] [facility], [address], [place], [place], [phone], Provider Name:Kiko De Leon jaironr, 12/10/2025 07:15:00 AM, [address] [place] [address], [address], [place], [place], [phone], Provider Name:Kiko De Leon ier, 12/17/2025 09:30:00 AM, [address] [place] [address], [address], [place], [place], [phone], Progress Notes * Mikal DENNYDOB: [birth year] (74 yo M)Acc No.[id number]:01/01/2025 Patient: Mikal VITALE :1950 A ge:74 Y S ex:Male Address:[address], [place] [address] * true * Date: Generated for Maryam fontaine/Pamela/eTransmitting on: 04/03/2024 08:52 AM EST
--- OUTSIDE RECORDS SUMMARY | 2025-01-19 06:45 | XMS_ITS ---
Author Organization Kiko Coats MD Address [address] [place], [place] [phone] Care Team Providers Care Railway Shunter Name Role Phone Kiko Coats Primary Care Provider Allergies No Known Allergies Results Component Value Reference Range Notes US abdomen limited Reviewed date:01/20/2025 02:34:16 PM Interpretation: Performing Lab: Notes/Report: [address] [address] Ultrasound Report Signed Patient: Mikal Denny MR#: [id number] : 1950 Acct:[id number] Age/Sex: 74 / M ADM Date: 01/20/25 Loc: HO.US Attending Dr: Kiko Coats MD Ordering Physician: Kiko Coats MD Date of Service: 01/20/25 Procedure(s): US abdomen limited Accession Number(s): [id number] cc: Kiko Coats MD Reason for Exam: Bile Leak CLINICAL HISTORY: Bile Leak US abdomen limited Comparison: CT/[place]/SR - CT ABDOMEN PELVIS WITH IV CONTRAST [...] the gallbladder fossa, not measured by the office machine embossograph operator, roughly 2.5 x 2.7 x 3.7 cm [...] Signed By: <Electronically signed by Maria Elena uLndy MD in OV> 01/20/25 1113 DD/ 1112 TD/TT: 01/20/25 1112 Golf Shoe Spike Assembler: [place] [address] Ultrasound Report Signed Patient: Yadira Denny MR#: [id number] : 1950 Acct:[id number] Age/Sex: 74 / M ADM Date: 01/20/25 Loc: HO.US Attending Dr: Kiko Coats MD Ordering Physician: Kiko Coats MD Date of Service: 01/20/25 Procedure(s): US abd omen limited Accession Number(s): [id number] cc: Kiko Coats MD Reason for Exam: Bile Leak CLINICAL HISTORY: Bile Leak US abdomen limited Comparison: CT/[place]/SR - CT ABDOMEN PELVIS WITH IV CONTRAST [...] the gallbladder fossa, not measured by the office machine embossograph operator, roughly 2.5 x 2.7 x 3.7 cm [...] 01/20/25 1113 DD/ 1112 TD/TT: 01/20/25 1112 Golf Shoe Spike Assembler: REASON FOR VISIT must see, Accompanied buy [...] Risk Notes Problem Disorder of biliary tract (095674165) Bile leak (K83.9) Active confirmed Vital Signs Blood pressure systolic 130 mm Hg 01/20/20 25 Blood pressure diastolic 80 mm Hg 025 Height 70 in 01/19/2025 Weight 157 lbs 01/19/2025 BMI 22.52 kg/m2 01/19/2025 weight is down 11 pounds [facility] 10-24-25 Encounters Encounter Location Date Provider Diagnosis Kiko Coats MD [address] [place] [address] [place] [phone] 01/19/2025 Kiko Coats Bile leak K83.9 Assessments [...] Provider Name:Kiko Josephcalli ier, 02/16/2025 10:15:00 AM, [address] [place] [address], [address] [place] [address], [phone], Provider Name:Kiko Zhao Moises ier, 05/14/2025 07:45:00 AM, [address] [place] [address], Suite [facility], [place], [place], [phone], Provider Name:Kiko Zhao Moises ier, 05/21/2025 09:00:00 AM, [address] [place] [address], [address] [place] [address], [phone], Provider Name:Kiko De Leon ier, 12/10/2025 07:15:00 AM, [address] [place] [address], [place] [address], [place], [place], [phone], Provider Name:Kiko De Leon ier, 12/17/2025 09:30:00 AM, [address] [place] [address], [place] [address], [place], [place], [phone], Progress Notes * Mikal DENNYDOB: [birth year] (74 yo M)Acc No.[id number]:01/19/2025 Patient: Mikal VITALE Provider: La Coats MD :1950 A ge:74 Y S ex:Male Date:01/19/2025 Address:[address], [place] Subjective: * Chief Complaints: * M ust [...] Date: 03/22/2024 Generated for Maryam fontaine/Pamela/eTransmitting on: 04/03/2024 08:54 AM EST History and [...]
--- OUTSIDE RECORDS SUMMARY | 2025-01-23 05:30 | XMS_ITS ---
Author Organization Kiko Coats MD Address [address] [place], [place] [phone] Care Team Providers Care Parasitologist Name Role Phone Jorge LTian Primary Care Provider Allergies No Known Allergies Results Component Value Reference Range Notes Complete Blood Count Auto Di ff Reviewed date:01/23/2025 06:39:11 PM Interpretation: Performing Lab:[facility], [address] [place] [phone] Notes/Report: White Blood Count 12.0 4.8-10.8 X10*3/uL [...] te Reviewed date:01/23/2025 06:38:02 PM Interpretation: Performing Lab:[facility], [address] [place] [phone] Notes/Report: Erythrocyte Sedimentation Rate 87 0-15 MM/HR Patients with polycythemia and many hemoglobin abnormalities may have depressed sed rates whereas patients with anemia may have elevated sed rates. Comprehensive [place]. Panel Fa st Reviewed date:01/23/2025 06:42:44 PM Interpretation: Performing Lab:[facility], [address] [place] [phone] Notes/Report: Sodium 139 135-145 mmol/L Potassium 4.0 [...] Magnesium Reviewed date:01/23/2025 06:38:10 PM Interpretation: Performing Lab:[facility], [address] [place] [phone] Notes/Report: Magnesium 2.0 1.6-2.6 mg/dL REASON FOR [...] kg/m2 01/23/2025 weight is down 4 pounds [facility] p06-1-10 Encounters Encounter Location Date Provider Diagnosis Kiko Coats MD [address] [place] [address] [place] [phone] 01/23/2025 Kiko Coats Abdominal pain R10.9 and [...] Name:Kiko de la or, 02/16/2025 10:15:00 AM, [address] [place] [address], [address], [phone], Provider Name:Kiko De Leon ier, 05/14/2025 07:45:00 AM, [address] [place] [address], [address], [phone], Provider Name:Kiko De Leon ier, 05/21/2025 09:00:00 AM, [address] [place] [address], [address], [phone], Provider Name:Kiko De Leon ier, 12/10/2025 07:15:00 AM, [address] [place] [address], [address], [phone], Provider Name:Kiko Pavel Moises de la or, 12/17/2025 09:30:00 AM, [address] [place] [address], [address], [phone], Progress Notes * Mikal DENNYDOB: [birth year] (74 yo M)Acc No.[id number]:01/23/2025 Patient: Mikal VITALE Provider: La Coats MD :1950 A ge:74 Y S ex:Male Date:01/23/2025 Address:[address], [place] Subjective: * Chief Complaints: * 1 . [...] and upper endo [facility] done at the [facility]. probably not able to access those records but will be followed by them. possibly someone in [facility] did it, Colonoscopy and endoscopy [...] BP:122/68, Wt-k.4. weight is down 4 pounds [id number]. * Examination: G eneral Examination: GENERAL APPEARANCE: [...] Pending * Provider: La Coats MD Date: 1 03/26/2024 Generated for Maryam fontaine/Pamela/Tishitting on: 04/03/2024 08:53 AM EST History and Physical Notes * [...]
--- OUTSIDE RECORDS SUMMARY | 2025-01-30 10:00 | XMS_ITS ---
Author Organization Kiko Coats MD Address [address] [place], [place] [id number] Care Team Providers Care Full Stack Java Developer Name Role Phone Jorge L Kiko Primary Care Provider [phone] Allergies No Known Allergies REASON FOR VISIT 1 week, Accompanied by Medications Medication SIG (Take, Route, Frequency, Duration) Notes Start Date End Date Status Hydrocod Pravin-Chlorphe Pravin ER 10-8 MG/5ML 5 [...] PUFF BY MOUTH TWICE A DAY Not-Taking Betamethasone Dipropionate 0.05 % as directed Externally daily for 30 days 02/10/2011 Not-Taking traMADol HCl 50 MG 2 tabs [...] C 500 MG as directed Orally Active Atorvastatin Calcium 40 MG TAKE 1 TABLET BY MOUTH EVERY DAY Active amLODIPine Besylate 5 MG TAKE 1 TABLET B Y MOUTH ONCE A DAY FOR 30 DAY(S) Orally Once a day Active Jardiance 10 MG 1 tablet Orally Once a day Active Levalbuterol Tartrate 45 MCG/ACT INHALE 2 PUFFS NEEDED EVERY 4 HOURS FOR 30 DAYS INHALATION EVERY 6 HRS Active Carvedilol 25 MG 1 tablet with food Orally Twice a day Active Ketoconazole 2 % 1 application Externally Once a day for 30 days 11/17/2024 Active Ipratropium-Albuterol 0.5-2.5 (3) MG/3ML INHALE 1 VIAL EVERY 4 HOURS NEEDED INHALATION EVERY 6 HRS 30 DAYS Inhalation every 6 hrs for 30 days Active Ferrous Gluconate 324 (38 Fe) MG 1 tablet Orally once a day Active Cialis 20 MG 1 tablet Orally Once a day Active Meloxicam 15 MG TAKE 1 TABLET BY DEBORAH TH ONCE A DAY AFTER A MEAL for 30 Active Triamcinolone Acetonide 0.5 % 1 application Externally Once a day for 14 days 11/15/2020 Active PreserVision AREDS 2 - as directed Orally Active Multi Vitamin Daily - 1 tablet Orally On ce a day for 30 day(s) Active Aspir-81 81 MG 1 tablet Orally Once a day for 30 day(s) Active Vital Signs Blood pressure systolic 142 mm Hg 01/31/20 25 Blood pressure diastolic 66 mm Hg 025 Height 70 in 01/30/2025 Weight 154 lbs 01/30/2025 BMI 22.09 kg/m2 01/30/2025 Encounters Encounter Location Date Provider Diagnosis Kiko Coats MD [address] [place] [address] [place] [address] [id number] 01/30/2025 Kiko Coats Abdominal pain R10.9 and Weight loss R63.4 Assessments Encounter Date Diagnosis (ICD Code) Assessment Notes Treatment Notes Treatment Clinical Notes Section Notes 01/30/2025 Abdominal pain (ICD-10 - R10.9) seems to be improving 01/30/2025 Weight loss (ICD-10 - R63.4) getting better with protein drinks Plan Of Treatment Treatment Notes Assessment Notes Abdominal pain seems to be improvin g Weight loss getting better with protein drinks Next Appt Details Follow Up: 2 Weeks, Reason: Provider Name:Kiko De Leon ier, 02/16/2025 10:15:00 AM, [address] [place] [address], [address], [phone], Provider Name:Kiko De Leon ier, 05/14/2025 07:45:00 AM, [address] [place] [address], [address], [phone], Provider Name:Kiko De Leon ier, 05/21/2025 09:00:00 AM, [address] [place] [address], [address], [phone], Provider Name:Kiko De Leon ier, 12/10/2025 07:15:00 AM, [address] [place] [address], [address], [phone], Provider Name:Kiko Pavel Moises ier, 12/17/2025 09:30:00 AM, [address] [place] [address], [address], [phone], Progress Notes * Mikal DENNYDOB: [birth year] (74 yo M)Acc No.[id number]:01/30/2025 Patient: Mikal VITALE Provider: La Coats MD :1950 A ge:74 Y S ex:Male Date:01/30/2025 Address:[address], [facility] [id number] Subjective: * Chief Complaints: * 1 . 1 week. 2. Accompanied by . * HPI: S ymptom(s): patient is a 74 yo male here for one week follow up visit, has been having some protein drinks and they don't hurt. * ROS: G eneral/Constitutional: Denies C hills. D enies F atigue. D enies F ever. D enies H eadache. E NT: Denies S ore throat. R espiratory: Denies C ough. D enies S hortness of breath at rest. D enies S hortness of breath with exertion. G astrointestinal: Denies D iarrhea. D enies N ausea. * Medical History: E sophageal stricture, Hypercholesterolemia, Hypertension, Asthma - mild intermittent, Colonoscopy 02/2014 and [facility] probably not able to access those records but will be followed by them. possibly someone in [facility] did it, Colonoscopy and endoscopy 2022. [...] Objective: * Vitals: H t: 70, Wt: 154, BMI:22.09, BP:142/66, Wt-k.85. * Examination: G eneral Examination: GENERAL APPEARANCE: a lert, well hydrated, in no distress.? HEAD: n ormocephalic. SKIN: g ood turgor. HEART: r egular rate and rhythm, no murmurs, rubs, gallops.? LUNGS: n o wheezes, rales, rhonchi, good air movement, clear to auscultation bilaterally. ABDOMEN: a bnormal mild tenderness. better than last week. 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 Assessment: * Assessment: 1. A bdominal pain - R10.9 (Primary) 2 . W eight loss - R63.4 ? Plan: * Treatment: 2. W eight loss Notes: getting better with protein drinks * Follow Up: 2 Weeks * * The named appointment provid er may or may not be the originator of this progress note, and it is not deemed complete until electronically signed by the appointment provider. Sign off status: Pending * Provider: La Coats MD Date: 04/02/2024 Generated for Maryam fontaine/Pamela/Traciesmitting on: 04/03/2024 08:52 AM EST History and Physical Notes * Examination Category Sub-Category Detail Notes Category Not es General Examination GENERAL APPEARANCE: alert, w ell hydrated, in no distress HEAD: normocephalic HEART: regular rate and rhy thm, no murmurs, rubs, gallops LUNGS: no wheezes, rales, r honchi, good air movement, clear to auscultation bilaterally ABDOMEN: abnormal mild tender ness. better than last week. 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
--- OUTSIDE RECORDS SUMMARY | 2025-01-30 23:59 | XMS_ITS | Continuity of Care Document ---
Author Organization [facility] Address [address] [place] [address]- Care Team Providers Care Veterinary Anatomist Name Role Phone Kiko Coats MD Primary Care Physician [phone] Encounter [facility] Date(s): 12/31/24 - 01/30/25 [facility] [address] [place] [phone]- Attending Physician: Katty Cummings Admitting Physician: Katty Cummings Referring Physician: trKatty Encounter Type: Triage Allergies, Adverse Reactions, Alerts Substance Criticality Severity [...] 3 Refills, Maintenance, 09/10/24 1:15:00 PM EDT, [facility]/pharmacy #[id number], 178, cm, 08/20/24 8:03:00 EDT, Height, 78.2, kg, 07/26/24 1:32:00 EDT, Dry Weight Start Date: 09/10/24 Status: Ordered Medication Dispense Status: Completed Quantity: 90.0 Unit: tablet Total Allowed Fills: 4 Fills Dispensed: 0 carvedilol 25 mg oral tablet 1, tablet, By Mouth, 2 times a day, # 180 tablet, Refills 3, Maintenance, 12/17/24 7:33:00 AM EDT, Route to Pharmacy Electronically, [id number], 179, cm, 11/18/24 10:11:00 EDT, Height, 78, [...] tablet, 1 Refills, Maintenance, 07/30/24 11:07:00 AMEDT, [facility]/pharmacy #[id number], Partial fill upon patient request [...] 11:07:00 AM EDT, Route to Pharmacy Electronically, [facility]/pharmacy #[id number], Partial fill upon patient request [...] Abnormal nuclear cardiac imaging test Confirmed Active Social History Social History Type Response Smoking Status Former smoker, quit more than 30 days ago; Other: QUIT 1998; entered on: 12/09/21 Sex Sex Representation Male (finding) Patient Care team information Care Team Personnel Name: Mer Bermudez RN Position: S RN Member Role: Primary Care Nurse Name: Kiko Coats MD Position: Reference Physician Member Role: PCP Address: [address] [place] [address] Kiko Coats MD [place], [place] [address] Telecom: [phone] Name: Jennifer Grullon RN Position: S RN Member Role: Primary Care Nurse Name: Ina Solano RN Position: [facility] SN RN Member Role: Primary Care Nurse Name: Valerio Zaman RN Position: S RN Member Role: Primary Care Nurse Name: Charity Michaels RN Position: S RN Member Role: Primary Care Nurse Name: Cora Mathews RN Position: S RN Member Role: Primary Care Nurse Name: Vilma Alcantara RN Position: S RN Member Role: Primary Care Nurse Name: Natalia Nash RN Position: [facility] SN RN Member Role: Primary Care Nurse Care Team Related Persons Name: FRANCOIS DENNY Insurance Providers Guarantor name: QUENTIN DENNY [facility] Plan Information #: 1 Payer: MEDICARE B Payer Identifier: NA Member Number: [id number] Group Number: SASHA Subscriber Identifier: SASHA Relationship to Subscriber: self Coverage Type: NA Coverage Verification Date: NA Telecom: NA Address: Health Plan Information #: 2 Payer: [facility] NON HMO PLANS Payer Identifier: SASHA Member Number: [id number] Group Number: SASHA Subscriber Identifier: SASHA Relationship to Subscriber: self Coverage Type: Managed Care (Private) Coverage Verification Date: SASHA Telecom: NA Address:
--- NOTE | ~2025-01-31 | US_ITS ---
EXAMINATION: US ABDOMEN LIMITED CLINICAL INFORMATION: T81.89XA. COMPARISON: Correlated to CT dated January 21, 2025. TECHNIQUE: Real-time ultrasound of the right upper abdomen using grayscale technique. FINDINGS: PANCREAS: No peripancreatic fluid collections. LIVER: Liver measures 15 cm. Coarse echotexture. Subtle nodular surface. No solid or cystic lesion. No intrahepatic biliary ductal dilatation. Main portal vein is patent with normal hepatopedal flow direction. GALLBLADDER: Absent. COMMON BILE DUCT: 3 mm.. RIGHT KIDNEY: 10 cm. Normal echotexture. Renal cortical thickness is normal. No hydronephrosis. No solid or cystic lesion.. FREE FLUID: None. The infrarenal mid segment of the abdominal aorta measures 6 x 4.6 cm in maximum dimension. US/US abdomen limited IMPRESSION: Hepatocellular disease versus and steatosis. Status post cholecystectomy. No choledocholithiasis. No hydronephrosis, right kidney. No ascites. 6 x 4.6 cm infrarenal abdominal aortic aneurysm. Please refer to the CT abdomen demonstrated a endotracheal aorta graft stenting. Electronically signed by: Que Lopez MD 02/02/2025 09:36 AM EST
--- OUTSIDE RECORDS SUMMARY | 2025-01-31 08:52 | XMS_ITS | Encounter Summary ---
Author Organization [facility] Address [address] [facility] [address] [place] [phone] Phone Care Team Providers Care Geophysical Observer Name Role Phone Lindy Buckner MD Primary Care Provider Encounter Details Date Type Department Care Team (Late st Contact Info) Description 08/10/2022 Procedure Pass [facility] Endoscopy Admitting Dept Virtual Department [address] [place] [address] Social History Tobacco Use Types Packs/Day Years [...] on filedocumented in this encounter Care Teams Geophysical Observer Relationship Specialty Start Date End Date Lindy Buckner MD [address] [place] [address] PCP - General Internal Medicine 06/09/22 documented as of this encounter Additional Source Comments The information contained in this document represents components of the legal health record. It is not the complete legal health record.[facility]
--- OUTSIDE RECORDS SUMMARY | 2025-01-31 08:52 | XMS_ITS | Data Portability ---
Author Organization [place] - [facility], [facility] Address [address] [place] [address] Care Team Providers Care Freight Car Inspector Name Role Phone EMMANUEL COPELAND Primary Care Provider [phone] Assessment Encounter Date Assessment Date Assessment LastModified [...] 15 mg tablet 2024 025 [email or web address] [id number], [id number] [place], [address], 5 10:49:41 Patient TargetsNo targets recorded. 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 Procedures Surgical History Date Name Laterality Status Provider Name and Address Organization Details Recorded Time 5 JZShoulder INJ completed Chad Hunter PA-C [address], [place], [address], [facility] 07/23/2024 07:40:15 5 JZShoulder INJ completed Chad Hunter PA-C [address], [place], [address], [facility] 04/23/2024 08:51:15 4 JZShoulder INJ completed Chad Hunter PA-C [address], [place], [address], [facility] 01/23/2024 08:52:21 4 JZShoulder INJ completed Chad Hunter PA-C [address] [facility], [place], [address], [facility] 10/24/2023 08:54:24 4 JZCMC Inj completed Chad Hunter PA-C [address] [facility], [place], [address], [facility] 10/24/2023 08:54:34 4 JZShoulder INJ completed Chad Hunter PA-C [address] [facility], [place], [address], [facility] 07/26/2023 13:08:59 [...] Updated DateTime 04/23/2024 177.8 cm 23.7 kg/m2 36999.74 g [facility] 04/23/2024 08:28:45 Date Recorded Body height Body mass index (BMI) Body weight Provider Name and Address Organization Details Last Updated DateTime 07/23/2024 177.8 cm 23.7 kg/m2 56832.74 g [facility] 07/23/2024 07:27:11 Date Recorded Body height Body mass index (BMI) Body weight Provider Name and Address Organization Details Last Updated DateTime 07/26/2023 177.8 cm 23.7 kg/m2 15784.74 g Merced Curtis [facility] 07/26/2023 13:05:11 Date Recorded Body height Body mass index (BMI) Body weight Provider Name and Address Organization Details Last Updated DateTime 10/24/2023 177.8 cm 23.7 kg/m2 20417.74 g Bayron Gaffney [facility] 10/24/2023 08:48:57 Date Recorded Body height Body mass index (BMI) Body weight Provider Name and Address Organization Details Last Updated DateTime 01/23/2024 177.8 cm 23.7 kg/m2 47230.74 g Bayron Gaffney [facility] 01/23/2024 08:49:29 Social History None recorded. Functional Status None recorded. Mental Status None recorded. Family History Nothing Reported. Medical History No medical history recorded. Past Encounters Encounter ID Performer Location Encounter Start Date Encounter Closed Date Diagnosis/Indication Diagnosis SNOMED-CT Code Diagnosis ICD10 Code Diagnosis IMO Codes Diagnosis Note [id number] GUERDA Daswon [address] [place] [address] 07/26/2023 12:43:37 08/20/2023 13:07:39 Impingement syndrome of left shoulder region [id number] 58532 M75.42 [id number] GUERDA Dawson [address] [place] [address] 10/24/2023 08:42:15 11/19/2023 13:35:25 Impingement syndrome of left shoulder region 3331897619 23341 M75.42 Osteoarthr osis of the carpometacarpal joint of the thumb 03984981 M18.9 [id number] GUERDA Dawson [address] [place] [address] 01/23/2024 08:45:15 02/19/2024 07:48:29 Impingement syndrome of left shoulder region 1527106643 48795 M75.42 [id number] GUERDA Dawson - [place] [address] [place] [address] 04/23/2024 08:18:47 05/09/2024 12:39:46 Impingement syndrome of left shoulder region 1386205406 63424 M75.42 [id number] GUERDA Dawson - [place] [address] [place] [address] 07/23/2024 07:22:30 08/04/2024 13:32:23 Impingement syndrome of left shoulder region 0972232824 21287 M75.42 Health Concerns Section Related Observation LastModified by Organization Detai ls LastModified Time None Recorded Concern Status LastModified by Organization Details LastModified Time None Recorded Advance Directives Directive None Recorded Payers Insurance Date Sequence Insurance Name Policy Number Policy Eckert Covered Member ID Eckert Member ID Guarantor Name 07/20/2024 1 [place] [employer] Mikal Elizondo [id number] Mikal Elizondo 08/04/2024 2 [employer] (POS) [id number] Mikal Elizondo [id number] Mikal Elizondo 09/07/2023 2 UNSPECIFIED REMIT PAYOR Mikal Elizondo
--- OUTSIDE RECORDS SUMMARY | 2025-01-31 08:52 | XMS_ITS | Encounter Summary ---
Author Organization [facility] Address [address] [place] [address] Phone Care Team Providers Care Foster Care Case Manager Name Role Phone Lindy Buckner MD Primary Care Provider Encounter Details Date Type Department Care Team (Late st Contact Info) Description 06/09/2022 Procedure Pass [facility] Endoscopy Admitting Dept Virtual Department [address] [place] [address] Social History Tobacco Use Types Packs/Day Years [...] on filedocumented in this encounter Care Teams Foster Care Case Manager Relationship Specialty Start Date End Date Lindy Buckner MD [address] [place] [address] PCP - General Internal Medicine 06/09/22 documented as of this encounter Additional Source Comments The information contained in this document represents components of the legal health record. It is not the complete legal health record.[facility]
--- OUTSIDE RECORDS SUMMARY | 2025-01-31 08:52 | XMS_ITS | Encounter Summary ---
Author Organization [facility] Address [address] [facility] [address] [place] [address] Phone Care Team Providers Care Orthotist Name Role Phone Lindy Buckner MD Primary Care Provider Encounter Details Date Type Department Care Team (Late st Contact Info) Description 03/02/2023 Procedure Pass [facility] Endoscopy Admitting Dept Virtual Department [address] [place] [address] Social History Tobacco Use Types Packs/Day Years [...] on filedocumented in this encounter Care Teams Orthotist Relationship Specialty Start Date End Date Lindy Buckner MD [address] [place] [address] PCP - General Internal Medicine 06/09/22 documented as of this encounter Additional Source Comments The information contained in this document represents components of the legal health record. It is not the complete legal health record.[facility]
--- OUTSIDE RECORDS SUMMARY | 2025-01-31 08:53 | XMS_ITS | Data Portability ---
Author Organization [place] [facility] Address [address] [place] [address] Care Team Providers Care Drum Sander Offbearer Name Role Phone DRUERASMO SHEPPARDN Primary Care Provider [phone] [facility] OTHER Assessment Encounter Date Assessment Date Assessment [...] ionized calcium, serum or plasma [facility], [address] [place], [address], 05:01:37 urinalysis , dipstick 2021 022 [email or web address], [address] [place], [address], 15:29:23 Referral None recorded. Procedures None recorded. Surgeries None recorded. Imaging None recorded. Medication Orders None recorded. Patient TargetsNo targets recorded. Patient Instructions Encounter Date Encounter Id Patient Instructions Last Modified By Organization Details Last Modified Time 12/14/2021 [id number] [facility] came to your home to evaluate you [...] , dipst ick Appearance clear Not Available [facility] - ome [address], [place], [address], 12/14/2021 15:12:58 12/15/1912/14/2021 urina lysis , dipst ick Color yellow Not Available [facility] Home [address] [place], [address], 12/14/2021 15:12:58 12/15/19 22 12/14/2021 urina lysis , dipst ick Glucose (ref: neg Neg Not Available [facility] [place] [address] [place], [address], 12/14/2021 15:12:58 12/15/1912/14/2021 urina lysis , dipst ick Bilirubin (ref: neg) Neg Not Available [facility] [place] [address] [place], [address], 12/14/2021 15:12:58 12/15/1912/14/2021 urina lysis , dipst ick Ketones (ref: neg) Neg Not Available [facility] [place] [address] [place], [address], 12/14/2021 15:12:58 12/15/1912/14/2021 urina lysis , dipst ick Specific [place] (ref: 1.003 - 1.035) 1.020 Not Available [facility] [place] [address] [place], [address], 12/14/2021 15:12:58 12/15/19 22 12/14/2021 urina lysis , dipst ick Blood (ref: neg) Neg Not Available [facility] [address], [place], [address], 12/14/2021 15:12:58 12/15/1912/14/2021 urina lysis , dipst ick pH (ref: 5.0-7.0) 5.0 Not Available [facility] [place] [address] [place], [address], 12/14/2021 15:12:58 12/15/19 22 12/14/2021 urina lysis , dipst ick Protein (ref: neg) Neg Not Available [facility] [place] [address] [place], [address], 12/14/2021 15:12:58 12/15/1912/14/2021 urina lysis , dipst ick Urobilinogen (ref: 0.2-1.0) 0.2 Not Available [facility] [address] [place], [address], 12/14/2021 15:12:58 12/15/1912/14/2021 urina lysis , dipst ick Nitrites (ref: neg) negati ve Not Available [facility] [address] [place], [address], 12/14/2021 15:12:58 12/15/1912/14/2021 urina lysis , dipst ick Leukocytes (ref: neg) Not Available [facility] [address] [place], [address], 12/14/2021 15:12:58 12/15/1912/14/2021 urina lysis , dipst ick Location [facility], [address] [place] [address], [phone] Not Available [facility] [address] [place], [address], 12/14/2021 15:12:58 12/15/19 22 12/14/2021 BMP + IONIZ ED CALCI UM, SERUM OR PLASM A glu 179 mg/dL 70-105 Not Available [facility] [address] [place], [address], 12/14/2021 15:11:21 12/15/19 22 12/14/2021 BMP + IONIZ ED CALCI UM, SERUM OR PLASM A BUN 24 mg/dL 8-26 Not Available [facility] [address] [place], [address], 12/14/2021 15:11:21 12/15/19 22 12/14/2021 BMP + IONIZ ED CALCI UM, SERUM OR PLASM A crea 1.9 mg/dL 0.6-1. 3 Not Available [address], [address], 12/14/2021 15:11:21 12/15/19 22 12/14/2021 BMP + IONIZ ED CALCI UM, SERUM OR PLASM A Na 136 mmol/ L 138-14 6 Not Available [address], [address], 12/14/2021 15:11:21 12/15/19 22 12/14/2021 BMP + IONIZ ED CALCI UM, SERUM OR PLASM A K 4.0 mmol/ L 3.5-4. 9 Not Available [address], [address], 12/14/2021 15:11:21 12/15/19 22 12/14/2021 BMP + IONIZ ED CALCI UM, SERUM OR PLASM A cL 99 mmol/ L 98-109 Not Available [address], [address], 12/14/2021 15:11:21 12/15/19 22 12/14/2021 BMP + IONIZ ED CALCI UM, SERUM OR PLASM A TCO2 24 mmol/ L 24-29 Not Available [address], [address], 12/14/2021 15:11:21 12/15/19 22 12/14/2021 BMP + IONIZ ED CALCI UM, SERUM OR PLASM A angap 18 mmol/ L 10-20 Not Available [address], [address], 12/14/2021 15:11:21 12/15/19 22 12/14/2021 BMP + IONIZ ED CALCI UM, SERUM OR PLASM A ica 1.15 mmol/ L 1.12-1 .32 Not Available [facility] [address] [place], [address], 12/14/2021 15:11:21 12/15/19 22 12/14/2021 BMP + IONIZ ED CALCI UM, SERUM OR PLASM A HCT 28 %pcv 38-51 Not Available [facility] [address] [place], [address], 12/14/2021 15:11:21 12/15/19 22 12/14/2021 BMP + IONIZ ED CALCI UM, SERUM OR PLASM A Hb 9.5 g/dL 12-17 Not Available [facility] [address] [place], [address], 12/14/2021 15:11:21 Result Notes None recorded. Procedures Surgical History Date Name Laterality Status Provider Name and Address Organization Details Recorded Time 12/15/19 Venipuncture - completed LIO VANCE NP [address] [place], [address], [place] [facility] 12/14/2021 19:45:24 12/15/19 ECG Interpretation - completed LIO VANCE NP [address] [place], [address], [place] [facility] 12/14/2021 19:46:52 radical prostatectomy completed LIO VANCE NP [address] [place], [address], [place] [facility] 12/14/2021 15:23:36 arterial bypass graft completed LIO VANCE NP [address], [place], [address], [place] [facility] 12/14/2021 15:23:50 Imaging Results [...] N Cancer N Dementia N Stroke N Asthma N COPD Y Depression N Hypothyroidism N High Cholesterol Y Rheumatoid Arthritis N Pulmonary Embolism N Hypertension Y Osteoporosis N A-fib N Kidney Disease Y Past Encounters Encounter ID Performer Location Encounter Start Date Encounter Closed Date Diagnosis/Indication Diagnosis SNOMED-CT Code Diagnosis ICD10 Code Diagnosis IMO Codes Diagnosis Note [id number] LIO VANCE NP [facility] - HOME [address] [place] [address] 12/14/2021 14:40:12 12/15/2021 12:28:27 Near syncope [id number] R55 Health Concerns Section Related Observation LastModified by Organization Detai ls LastModified Time None Recorded Concern Status LastModified by Organization Details LastModified Time None Recorded Advance Directives Directive None Recorded Payers Insurance Date Sequence Insurance Name Policy Number Policy Eckert Covered Member ID Eckert Member ID Guarantor Name 12/17/2021 1 [place] [email or web address] Mikal Elizondo [id number] Mikal Elizondo 12/14/2021 2 [employer] [id number] Mikal Elizondo [id number] Mikal Elizondo 12/14/2021 1 *SELF PAY* Mikal Elizondo [id number] Mikal Elizondo 12/14/2021 2 [employer] [id number] Mikal Elizondo [id number] Mikal Elizondo 12/14/2021 1 [place] [email or web address] Mikal Elizondo [id number] Mikal Elizondo Notes Date Note Type Note Provider Name and Address Organization Details Recorded Time 12/14/2021 text/html 71 year-old male with history of PAD, CAD, HTN, HLD, COPD who calls to home to evaluate him for dizziness. He is feeling better today.Pt reports he is 2 days post DC from [facility]. Pt underwent elective EVAR with bilateral femoral [...] been no pelvic discomfort. LIO VANCE NP [facility] [address], [place], [address], [place] [facility] 12/14/2021 20:00:48
--- OUTSIDE RECORDS SUMMARY | 2025-01-31 08:53 | XMS_ITS | Clinical Summary ---
Author Organization [facility] Address [address] [facility] [address] [place] [address] Phone Care Team Providers Care Milk House Worker Name Role Phone Lindy Buckner MD Primary Care Provider [phone] Allergies Active Allergy Reactions Criticality Noted Date [...] this topic Medical Devices Implanted Type Area Sausage Stringer Device Identifier Shelf Expiration Date Model / [...] Most Recently Relevant to Health Maintenance Insurance [facility] Care Teams Milk House Worker Relationship Specialty Start Date End Date Lindy Buckner MD [address] [place] [address] PCP - General Internal Medicine 06/09/22 Additional Source Comments The information contained in this document represents components of the legal health record. It is not the complete legal health record.[facility]
--- OUTSIDE RECORDS SUMMARY | 2025-01-31 08:53 | XMS_ITS | Encounter Summary ---
Author Organization [facility] Address [address] [facility] [address] [place] [address] Phone Care Team Providers Care Mechanism Assembler Name Role Phone Lindy Buckner MD Primary Care Provider [phone] Encounter Details Date Type Department Care Team (Late st Contact Info) Description 04/13/2023 Procedure Pass [facility] Endoscopy Admitting Dept Virtual Department [address] [place] [address] Social History Tobacco Use Types Packs/Day Years [...] on filedocumented in this encounter Care Teams Mechanism Assembler Relationship Specialty Start Date End Date Lindy Buckner MD [address] [place] [address] PCP - General Internal Medicine 06/09/22 documented as of this encounter Additional Source Comments The information contained in this document represents components of the legal health record. It is not the complete legal health record.[facility]
--- OUTSIDE RECORDS SUMMARY | 2025-01-31 08:54 | XMS_ITS | Patient Health Record ---
Author Organization Kiko Coats MD Address [address] [place], [place] [id number] Care Team Providers Care Process Lead Name Role Phone Kiko Coats Primary Care Provider Allergies No Known Allergies Results Component Value Reference Range Notes Complete Blood Count Auto Di ff Reviewed date:11/13/2024 04:28:00 PM Interpretation: Performing Lab:[facility], [address] [place] [address] Notes/Report: White Blood Count 9.2 4.8-10.8 X10*3/uL [...] NRBC Abs Auto 0.000 0.0-0.012 X10*3/uL Comprehensive [place]. Panel Fa st Reviewed date:11/13/2024 04:28:23 PM Interpretation: Performing Lab:[facility], [address] [place] [address] Notes/Report: Sodium 142 135-145 mmol/L Potassium 3.9 [...] PROFILE Reviewed date:11/13/2024 04:19:48 PM Interpretation: Performing Lab:[facility], [address] [place] [address] Notes/Report: Iron 63 45-160 mcg/dL Total Iron Binding Capacity 244 228-428 mcg/dL Percent Iron Saturation 26 15-50 % Unsaturated Iron Binding 181 Lipid Panel Reviewed date:11/13/2024 04:24:20 PM Interpretation: Performing Lab:[facility], [address] [place] [address] Notes/Report: Triglycerides 283 <150 mg/dL Desirable Triglyceride: [...] (Free>4and<10) Reviewed date:11/13/2024 04:24:30 PM Interpretation: Performing Lab:[facility], [address] [place] [address] Notes/Report: PSA,Total (Free>4and<10) < 0.10 0.00-4.00 ng/mL [...] Reviewed date:11/13/2024 04:25:27 PM Interpretation: Performing Lab:[address] [address] Notes/Report: Creatinine Urine 70.25 Microalbumin Urine 79.0 Microalbum/Creatinine Ratio Ur 112.4 <30 ug/mg cr Albumin/Creatinine Ratio Reference Ranges: Normal: < 30 ug/mg creatinine Microalbuminuria: 30 - 300 ug/mg creatinine Clinical Albuminuria: > 300 ug/mg creatinine Hemoglobin A1c Reviewed date:11/13/2024 04:19:36 PM Interpretation: Performing Lab:[address] [address] Notes/Report: Hemoglobin A1c % 6.3 <6.0 % [...] average glucose, using the formula of the N4Q-Kkqkjit Average Glucose study (ADAG), Diabetes Care, Vol.31,#8, Sep. 2007 UA ClnCatch+Micro w/rflx Cul t Reviewed date:11/13/2024 04:28:44 PM Interpretation: Performing Lab:[facility], [address] [place] [address] Notes/Report: [id number] Urine, Clean Catch Color Urine Yellow Appearance Urine Clear PH 7.0 5.0-9.0 Glucose Urine UA >=1000 Negative mg/dL Urine Blood Negative Negative Specific Hutchinson - Urine 1.010 1.005-1.025 Urine Protein Trace [...] ff Reviewed date:01/23/2025 06:39:11 PM Interpretation: Performing Lab:[address] [address] Notes/Report: White Blood Count 12.0 4.8-10.8 X10*3/uL [...] Reviewed date:01/23/2025 06:38:02 PM Interpretation: Performing Lab:[place] [address] [address] Notes/Report: Erythrocyte Sedimentation Rate 87 0-15 MM/HR Patients with polycythemia and many hemoglobin abnormalities may have depressed sed rates whereas patients with anemia may have elevated sed rates. Comprehensive [place]. Panel Fa Reviewed date:01/23/2025 06:42:44 PM Interpretation: Performing Lab:[address] [address] Notes/Report: Sodium 139 135-145 mmol/L Potassium 4.0 [...] Magnesium Reviewed date:01/23/2025 06:38:10 PM Interpretation: Performing Lab:[facility], [address] [place] [address] Notes/Report: Magnesium 2.0 1.6-2.6 mg/dL US abdomen limited Reviewed date:01/20/2025 02:34:16 PM Interpretation: Performing Lab: Notes/Report: [address] [address] Ultrasound Report Signed Patient: Mikal Elizondo MR#: [id number] : 1950 Acct:[id number] Age/Sex: 74 / M ADM Date: 01/20/25 Loc: HO.US Attending Dr: Kiko Coats MD Ordering Physician: Kiko Coats MD Date of Service: 01/20/25 Procedure(s): US abdomen limited Accession Number(s): [id number] cc: Kiko Coats MD Reason for Exam: Bile Leak CLINICAL HISTORY: Bile Leak US abdomen limited Comparison: CT/AK/SR - CT ABDOMEN PELVIS WITH IV CONTRAST [...] the gallbladder fossa, not measured by the manager print, roughly 2.5 x 2.7 x 3.7 cm [...] 01/20/25 1113 DD/ 1112 TD/TT: 01/20/25 1112 Medical Records Secretary: [place] [address] Ultrasound Report Signed Patient: Yadira Elizondo MR#: [id number] : 1950 Acct:[id number] Age/Sex: 74 / M ADM Date: 01/20/25 Loc: HO.US Attending Dr: Kiko Coats MD Ordering Physician: Kiko Coats MD Date of Service: 01/20/25 Procedure(s): US abd omen limited Accession Number(s): [id number] cc: Kiko Coats MD Reason for Exam: Fernando e Leak CLINICAL HISTORY: Bi le Leak US abdomen limited Comparison: CT/AK/SR - CT ABDOMEN PELVIS WITH IV CONTRAST [...] the gallbladder fossa, not measured by the manager print, roughly 2.5 x 2.7 x 3.7 cm [...] 01/20/25 1113 DD/ 1112 TD/TT: 01/20/25 1112 Medical Records Secretary: XR chest 2V Reviewed date:03/07/2024 12:57:23 PM Interpretation: Performing Lab: Notes/Report: [facility] [address] [place], [place] [address] XRay Report Signed Patient: Mikal Elizondo MR#: [id number] : 1950 Acct:[id number] Age/Sex: 73 / M ADM Date: 03/06/24 Loc: .HMGCX Attending Dr: Kiko Coats MD Ordering Physician: Kiko Coats MD Date of Service: 03/06/24 Procedure(s): XR chest 2V Accession Number(s): [id number] cc: Kiko Coats MD EXAMINATION: XR CHEST [...] 03/07/24 1212 DD/ 1406 TD/TT: 03/06/24 1410 Medical Records Secretary: [facility] [address] [place] [address] [place] [address] XRay Report Signed Patient: Yadira Elizondo MR#: [id number] : 1950 Acct:[id number] Age/Sex: 73 / M ADM Date: 03/06/24 Loc: [facility] Attending Dr: Kiko Coats MD Ordering Physician: Kiko Coats MD Date of Service: 03/06/24 Procedure(s): XR chest 2V Accession Number(s): [id number] cc: Kiko Coats MD EXAMINATION: XR CHEST [...] 03/07/24 1212 DD/ 1406 TD/TT: 03/06/24 1410 Medical Records Secretary: Liver Panel Reviewed date:05/05/2024 12:51:46 PM Interpretation: Performing Lab:[facility], [address] [place] [address] Notes/Report: Bilirubin Total 0.4 0.0-1.0 mg/dL Bilirubin Direct 0.2 0.0-0.5 mg/dL Aspartate Amino Transferase 21 5-37 U/L Alanine Aminotransferase 24 0-40 U/L Total Protein 7.0 6.5-8.0 g/dL Albumin Level 4.0 3.5-5.0 g/dL Alkaline Phosphatase 51 39-117 U/L Glucose Fasting Reviewed date:05/05/2024 12:52:03 PM Interpretation: Performing Lab:[facility], [address] [place] [address] Notes/Report: Glucose Fasting 97 60-99 mg/dL Lipid Panel with Reflex Reviewed date:05/05/2024 04:32:27 PM Interpretation: Performing Lab:[facility], [address] [place] [address] Notes/Report: Triglycerides 251 <150 mg/dL Desirable Triglyceride: [...] A1c Reviewed date:05/05/2024 11:59:28 AM Interpretation: Performing Lab:[facility], [address] [place] [address] Notes/Report: Hemoglobin A1c % 6.1 <6.0 % [...] average glucose, using the formula of the Z0P-Aegdrqx Average Glucose study (ADAG), Diabetes Care, Vol.31,#8, Sep. 2007 XR clavicle RT Reviewed date:10/17/2024 06:49:30 PM Interpretation: Performing Lab: Notes/Report: [facility] [address] [place], [place] [address] XRay Report Signed Patient: Mikal Elizondo MR#: [id number] : 1950 Acct:[id number] Age/Sex: 74 / M ADM Date: 10/15/24 Loc: HO.HMGCX Attending Dr: Isela Reyes PA-C Ordering Physician: ISELA REYES Date of Service: 10/15/24 Procedure(s): XR clavicle RT Accession Number(s): [id number] cc: Kiko Coats MD; ISELA REYES EXAMINATION: [...] OV> 10/15/24 0941 DD/ 7 TD/TT: 10/15/24919 Medical Records Secretary: [facility] [place] [address] XRay Report Signed Patient: Yadira Elizondo MR#: [id number] : 1950 Acct:[id number] Age/Sex: 74 / M ADM Date: 10/15/24 Loc: HO.HMGCX Attending Dr: Anna Reyes PA-C Ordering Physician: ISELA REYES Date of Service: 10/15/24 Procedure(s): XR cla vicle RT Accession Number(s): [id number] cc: Kiko Coats MD; ISELA REYES EXAMINATION: [...] in OV> 10/15/2441 DD/ 7 TD/TT: 10/15/24919 Medical Records Secretary: Glucose, Whole Blood Reviewed date:01/07/2025 01:11:13 PM Interpretation: Performing Lab:[facility], [address] [place] [address] Notes/Report: Glucose, Whole Blood 149 60-115 mg/dL METER # : [id number] Pathology Reviewed date:01/12/2025 05:49:16 PM Interpretation: Performing Lab:[facility], [address] [place] [address] Notes/Report: ----- Name: Ce Elizondo rose Age/Sex: 74/M : 1950 Unit#: [id number] Attend Dr: Zohaib Mosher MD Re01/07/25 Status : [facility] Location: [facility] Disch: ----- SPEC : [id number] REC STATUS: [facility] NUM: [id number] ANGELICA: 01/07/25-1356 [facility] DR: Zohaib Mosher MD ENTERED: 01/08/25-01 16 [...] in thickness. Mass lesions are not identified. Fermenting Cellar Dropper sections, including the inked cystic duct margin, are submitted in janay Wu (WALLY) IHC S/NG Disclaimer NOTE: Unless otherwi se stated, all tissue is formalin-fixed and paraffin-embedded. Some or all of the immunohistochemical tests reported herein may have been developed and their performance characteristics determined by [facility]. They have not been cleared or appr [place] by the U.S. Food and Drug Administration (FDA). However, the FDA has determined that such clearance or approval is not necessary. This laboratory is certified under the Clinical Laboratory Improvement Amendments of 1988 (CLIA) as qualified to perform high complexity clinical laboratory testing. Copies To: Kiko Coats MD [facility] [address] [place] [address] CONTINUED ON NEXT PAGE ----- Name: Ce Elizondo rose Age/Sex: 74/M : 1950 Unit#: [id number] Attend Dr: Zohaib Mosher MD Re01/07/25 Status : [facility] Location: [facility] Disch: ----- SPEC : [id number] RECD : 01/08/25 STATUS: TIFFANY [facility] NUM: [id number] ANGELICA: 01/07/25-1356 [facility] DR: Zohaib Mosher MD ENTERED: 01/08/25-01 16 SP TYPE: Surgical OTHR DR: Kiko Coats MD ORDERED: Gross Micro L3 Copies To: (Continued) Zohaib Mosher MD [facility] [address] [place] [address] ----- Signed (signature on file) Marianela Chau MD 01/12/25 1155 ----- END OF REPORT Complete Blood Count Auto Di ff Reviewed date:01/14/2025 05:00:01 PM Interpretation: Performing Lab:[facility], [address] [place] [address] Notes/Report: White Blood Count 15.4 4.8-10.8 X10*3/uL [...] INR Reviewed date:01/14/2025 04:58:46 PM Interpretation: Performing Lab:[facility], [address] [place] [address] Notes/Report: Prothrombin Time 16.6 11.2-13.5 SEC INTERNATIONAL [...] Time Reviewed date:01/14/2025 04:55:47 PM Interpretation: Performing Lab:[facility], [address] [place] [address] Notes/Report: Partial Thromboplastin Time 33.4 26.7-34.1 SEC Liver Panel Reviewed date:01/14/2025 04:59:14 PM Interpretation: Performing Lab:[facility], [address] [place] [address] Notes/Report: Bilirubin Total 0.5 0.0-1.0 mg/dL Bilirubin Direct 0.2 0.0-0.5 mg/dL Aspartate Amino Transferase 30 5-37 U/L Alanine Aminotransferase 29 0-40 U/L Total Protein 7.5 6.5-8.0 g/dL Albumin Level 4.3 3.5-5.0 g/dL Alkaline Phosphatase 113 39-117 U/L Basic Metabolic Panel Reviewed date:01/14/2025 04:59:40 PM Interpretation: Performing Lab:[address] [address] Notes/Report: Sodium 137 135-145 mmol/L Potassium 4.0 [...] Acid Reviewed date:01/14/2025 04:59:07 PM Interpretation: Performing Lab:[address] [address] Notes/Report: Lactic Acid 2.4 0.5-2.0 mmol/L Critical value for LACTIC: Results called to and read back by: TAYE Person calling: DEEP Date: 01/14/25 Time: 1229 Magnesium Reviewed date:01/14/2025 04:59:00 PM Interpretation: Performing Lab:[address] [address] Notes/Report: Magnesium 2.1 1.6-2.6 mg/dL Lipase Reviewed date:01/14/2025 04:58:52 PM Interpretation: Performing Lab:[address] [address] Notes/Report: Lipase 50 8-78 U/L Gram stain Reviewed date:01/19/2025 05:27:21 PM Interpretation: Performing Lab:[address] [address] Notes/Report: GALLBLADDER FOSSA COLLECTION gall bladder fossa collection Gram stain Gram stain results: Gram stain 1+ polys Gram stain 1+ red blood cells Gram stain No organisms seen UA CC w/rflx Micro + Cult Reviewed date:01/14/2025 04:58:30 PM Interpretation: Performing Lab:[address] [address] Notes/Report: [id number] Urine, Clean Catch Color Urine Yellow Appearance Urine Clear PH 7.5 5.0-9.0 Glucose Urine UA 500 Negative mg/dL Urine Blood Negative Negative Specific Hutchinson - Urine 1.020 1.005-1.025 Urine Protein Negative Neg-Trace mg/dL Urine Ketones Negative Negative mg/dL Nitrite Urine Negative Negative Leukocyte Esterase Urine Negative Negative Blood Culture (First) Reviewed date:01/19/2025 05:26:58 PM Interpretation: Performing Lab:[address] [address] Notes/Report: Blood Culture (First) No growth after 5 days. Blood Culture (Second) Reviewed date:01/19/2025 05:26:48 PM Interpretation: Performing Lab:[address] [address] Notes/Report: Blood Culture (Second) No growth after 5 days. Lactic Acid-LAB USE ONLY Reviewed date:01/14/2025 04:55:59 PM Interpretation: Performing Lab:[address] [address] Notes/Report: Lactic Acid-LAB USE ONLY 1.0 0.5-2.0 mmol/L Routine Culture Reviewed date:01/19/2025 05:27:13 PM Interpretation: Performing Lab:[address] [address] Notes/Report: GALLBLADDER FOSSA COLLECTION gall bladder fossa collection Routine Culture No growth after 2 days Anaerobic Culture Reviewed date:01/19/2025 05:27:30 PM Interpretation: Performing Lab:[facility], [address] [place] [address] Notes/Report: GALLBLADDER FOSSA COLLECTION gall bladder fossa collection Anaerobic Culture NO GROWTH AFTER [address] drain peritoneum Reviewed date:01/17/2025 03:47:04 PM Interpretation: Performing Lab: Notes/Report: [address] [address] [address] Scan Report Signed Patient: Mikal Elizondo MR#: [id number] : 1950 Acct:[id number] Age/Sex: 74 / M ADM Date: 01/14/25 Loc: HO.S3 374-[address]: Zohaib Mosher MD Ordering Physician: Zohaib Mosher MD Date of Service: 01/14/25 Procedure(s): CT drain peritoneum Accession Number(s): [id number] cc: Kiko Coats MD; Zohaib Mosher MD Report Number: [id number]: Total DLP = 311.00 mGy-cm Reason for [...] aspirated. Over an 018 wire, a 6 Algerian pigtail drainage catheter was positioned in the [...] 01/16/25 0859 DD/ 1638 TD/TT: 01/14/25 1741 Medical Records Secretary: [place] [address] CT Scan Report Signed Patient: Yadira Elizondo MR#: [id number] : 1950 Acct:[id number] Age/Sex: 74 / M ADM Date: 01/14/25 Loc: .S3 374-[address]: Marisela Mosher MD Ordering Physician: Zohaib Mosher MD Date of Service: 01/14/25 Procedure(s): CT cory in peritoneum Accession Number(s): [id number] cc: Kiko Coats MD; Zohaib Mosher MD [...] Over an 0 18 wire, a 6 Algerian pigtail drainage catheter was positioned in the [...] fossa collection drainage. Electronically emy d by: Daneille Valentine MD 01/16/2025 08:59 AM [facility] Dictated By: Danielle Valentine MD Signed By: <Electronically signed by Danielle Valentine MD in OV> 01/16/25 0859 DD/ 1638 TD/TT: 01/14/25 1741 Medical Records Secretary: CHACORTA CT abdomen pelvis w con Reviewed date:01/14/2025 04:58:12 PM Interpretation: Performing Lab: Notes/Report: [address] [address] [address] Scan Report Signed Patient: Mikal Elizondo MR#: [id number] : 1950 Acct:[id number] Age/Sex: 74 / M ADM Date: 01/14/25 Loc: HO.ED Attending Dr: Ordering Physician: Zohaib Mosher MD Date of Service: 01/14/25 Procedure(s): CT abdomen pelvis w IV con Accession Number(s): [id number] cc: Kiko Coats MD; Zohaib Mosher MD Report Number: [id number]: Total DLP = 409.00 mGy-cm Reason for Exam: postop pain after lap annamarie EXAMINATION: CT ABDOMEN AND PELVIS WITH CONTRAST CLINICAL INFORMATION: Postoperative pain after laparoscopic cholecystectomy. COMPARISON: CT abdomen and pelvis 07/25/2024 from [facility]. TECHNIQUE: Multidetector volumetric images were obtained from [...] by: Fito Olivares MD 01/14/2025 02:06 PM [facility] Dictated By: Fito Olivares MD Signed By: <Electronically signed by Fito Olivares MD in OV> 01/14/25 1406 DD/ 1306 TD/TT: 01/14/25 1334 Medical Records Secretary: [address] [address] [address] Scan Report Signed Patient: Yadira Elizondo MR#: [id number] : 1950 Acct:[id number] Age/Sex: 74 / M ADM Date: 01/14/25 Loc: .ED Attending Dr: Ordering Physician: Zohaib Mosher MD Date of Service: 01/14/25 Procedure(s): CT abd omen pelvis w IV con Accession Number(s): [id number] cc: Kiko Coats MD; Zohaib Mosher MD Report Number: [id number]: Total DLP = 409.00 mGy-cm Reason for Exam: pos top pain after lap annamarie EXAMINATION: CT ABDOMEN AND PELVI S WITH CONTRAST CLINICAL INFORMATION: Postoperative pain a fter laparoscopic cholecystectomy. COMPARISON: CT abdomen and pelvi s 07/25/2024 from [facility]. TECHNIQUE: Multidetector volume tric images were obtained [...] by: Fito Olivares MD 01/14/2025 02:06 PM [facility] Dictated By: Fito Olivares MD Signed By: <Electronically signed by Fito Olivares MD in OV> 01/14/25 1406 DD/ 1306 TD/TT: 01/14/25 1334 Medical Records Secretary: Complete Blood Count no Diff Reviewed date:01/17/2025 03:44:18 PM Interpretation: Performing Lab:[facility], [address] [place] [address] Notes/Report: White Blood Count 12.1 4.8-10.8 X10*3/uL [...] Panel Reviewed date:01/17/2025 03:49:04 PM Interpretation: Performing Lab:[facility], [address] [place] [address] Notes/Report: Sodium 139 135-145 mmol/L Potassium 3.8 [...] gy Reviewed date:01/17/2025 03:47:16 PM Interpretation: Performing Lab:[facility], [address] [place] [address] Notes/Report: Hold Lav - Possible Hematology SEE NOTE Specimen will be held untested for 8 hours. Call Hematology if testing is desired. Liver Panel Reviewed date:01/17/2025 03:43:59 PM Interpretation: Performing Lab:[facility], [address] [place] [address] Notes/Report: Bilirubin Total 0.3 0.0-1.0 mg/dL Bilirubin Direct 0.1 0.0-0.5 mg/dL Aspartate Amino Transferase 40 5-37 U/L Alanine Aminotransferase 35 0-40 U/L Total Protein 6.7 6.5-8.0 g/dL Albumin Level 3.9 3.5-5.0 g/dL Alkaline Phosphatase 84 39-117 U/L Glucose, Whole Blood Reviewed date:01/22/2025 12:43:39 PM Interpretation: Performing Lab:[facility], [address] [place] [address] Notes/Report: Glucose, Whole Blood 96 60-115 mg/dL METER # : [id number] CT abdomen wo con Reviewed date:01/22/2025 12:43:30 PM Interpretation: Performing Lab: Notes/Report: [address] [place] [address] CT Scan Report Signed Patient: Mikal Elizondo MR#: [id number] : 1950 Acct:[id number] Age/Sex: 74 / M ADM Date: 01/21/25 Loc: HO.SSS Attending Dr: Zohaib Mosher MD Ordering Physician: Zohaib Mosher MD Date of Service: 01/21/25 Procedure(s): CT abdomen wo IV con Accession Number(s): [id number] cc: Kiko Coats MD; Zohaib Mosher MD Report Number: [id number]: Total DLP = 89.00 mGy-cm Reason for [...] by: Mario Gonzales MD 01/21/2025 05:48 PM [facility] Dictated By: Mario Gonzales MD Signed By: <Electronically signed by Mario Gonzales MD in OV> 01/21/25 1748 DD/ 1534 TD/TT: 01/21/25 1638 Medical Records Secretary: [address] [address] [address] Scan Report Signed Patient: Yadira Elizondo MR#: [id number] : 1950 Acct:[id number] Age/Sex: 74 / M ADM Date: 01/21/25 Loc: HO.SSS Attending Dr: Marisela Mosher MD Ordering Physician: Zohaib Mosher MD Date of Service: 01/21/25 Procedure(s): CT abd omen wo IV con Accession Number(s): [id number] cc: Kiko Coats MD; Zohaib Mosher MD [...] 01/21/25 1748 DD/ 1534 TD/TT: 01/21/25 1638 Medical Records Secretary: Tommie Castillo Reviewed date:01/23/2025 06:38:18 PM Interpretation: Performing Lab:[facility], [address] [place] [address] Notes/Report: Tommie Castillo See Note Specimen held untested for 24 hours; Call to request Chemistry testing. Reason For Referral Reason please brynn and corey t Diagnosis 1 Esophageal ulcer wit hout bleeding (K22.10) Referral Organization Kiko Coats MD Referring Provider First Name Kiko Referring Provider Last Name Jorge L Referring Provider Speciality Internal M edicine Referred Provider [facility] Referred Provider Specialty Gastroentero logy General Notes Molly Webber 0 09/19/2024 02:58:33 PM > patient is aware of appt, Was told we needed to send a referral (doctor to doctor referral ) Referral Priority Routine Referral Appointment Date 11/12/2024 Medications Medication SIG (Take, Route, Frequency, Duration) Notes Start Date End Date Status Ketoconazole 2 % 1 application Externally Once [...] a day for 30 days 09/22/2024 Not-Taking Atorvastatin Calcium 40 MG TAKE 1 TABLET BY MOUTH EVERY DAY Active Hydrocod Pravin-Chlorphe Pravin ER 10-8 MG/5ML 5 mL as needed Orally every 12 hrs as needed for 10 days 04/26/2023 Not-Taking Ferrous Gluconate 324 (38 Fe) MG [...] C 500 MG as directed Orally Active Meloxicam 15 MG TAKE 1 TABLET BY DEBORAH TH ONCE A DAY AFTER A MEAL for 30 Active PreserVision AREDS 2 - as directed [...] PUFF BY MOUTH TWICE A DAY Not-Taking Multi Vitamin Daily - 1 tablet Orally On ce a day for 30 day(s) Active Levalbuterol Tartrate 45 MCG/ACT INHALE 2 PUFFS NEEDED EVERY 4 HOURS FOR 30 DAYS INHALATION EVERY 6 HRS Active Aspir-81 81 MG 1 tablet Orally Once a day for 30 day(s) Active Carvedilol 25 MG 1 tablet with food Orally Twice a day Active Betamethasone Dipropionate 0.05 % as directed Externally daily for 30 days 02/10/2011 Not-Taking Immunizations Vaccine Route Administration Date Status Comme nts Flu Vaccine IM Intramuscular 12/25/2011 Administered Flu Vaccine Unknown 11/19/2012 Administered flu vac giv en at ID Fluarix Quadrivalent IM Intramuscular 11/14/2013 Admintroy smiley Fluarix Quadrivalent IM Intramuscular 12/14/2014 Yashira smiley Prevnar 13 Unknown 07/22/2014 [facility]ered [facility] [place] PPSV23 (Pnemovax) IM Intramuscular 10/11/2015 Administered Fluarix Quadrivalent IM Intramuscular 10/26/2015 Admintroy smiley Shingles Unknown 11/04/2012 Administered done at the [facility] Fluarix Quadrivalent IM Intramuscular 01/19/2017 Admintroy red Fluarix Quadrivalent IM Intramuscular 12/03/2017 Admintroy smiley TDaP Unknown 07/30/2006 Administered At the [facility] Fluarix Quadrivalent IM Intramuscular 11/05/2018 Admintroy smiley pt was given the vaccine at the ID. Influenza High Dose Unknown 11/04/2019 [facility] [place] [facility] SARS-COV-2 [...] Status Risk Notes Problem Carotid artery disease (702851437) Carotid artery disease (I77.9) Active confirmed Problem Dysphagia (73538707) Dysphagia (R13.10) Active confirmed Problem 939860818 Hypomagnesemia (E83.42) Active confirmed Problem 26140988 Hypercalcemia (E83.52) Active confirmed Problem 12185405 Other chronic pa in (G89.29) Active confirmed Problem 8489597 Panlobular emphysema (J43.1) Active confirmed Problem [id number] Erectile dysfunction due to arterial insufficiency (N52.01) Active confirmed Problem 473201336 Lumbar disc disease (M51.9) Active confirmed Problem 24047124 Essential hypertension (I10) Active confirmed Problem 785291659 Prostate cancer (C61) Active confirmed Problem Psoriasis (8445311) Psoriasis (L40.9) Active co nfirmed Problem 87069341 Type 2 diabetes mellitus without complication (E11.9) Active confirmed Problem 51226183 Abdominal aortic aneurysm without rupture (I71.4) Active confirmed Problem 684999748 Low HDL (under 4 0) (E78.6) Active confirmed Problem 441917344 Anemia, unspecified anemia type (D64.9) Active confirmed Problem 360591075 High triglycerid es (E78.1) Active confirmed Problem 099550980 Cervical disc disease (M50.90) Active confirmed Problem 91326245 Intrinsic eczema (L20.84) Active confirmed Problem 259350585 Raynauds disease without gangrene (I73.00) Active confirmed Problem Gallstone (226961869) Gall stones (K80.20) Active confirmed Problem 593816253 COPD exacerbatio n (J44.1) Active confirmed Problem Atherosclerosis (83893805) Atherosclerosis (I70.90) Active confirmed Problem Leukocytosis (790467940) Elevated WBC count (D72.829) Active confirmed Problem 042848770 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) Active confirmed Problem Disorder of biliary tract (015514897) Bile leak (K83.9) Active confirmed Problem 248212787 Nodule of tongue (R22.0) Active confirmed Problem 73658645 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) Active confirmed Problem 442418098 COPD with exacerbation (J44.1) Active confirmed Problem 4262437988207985 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) Active confirmed Problem 806120857 Low blood magnesium (R79.0) Active confirmed Problem 028829926 Age-related incipient cataract of both eyes (H25.093) Active confirmed Problem 081854593 Arthritis, 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) Active confirmed Problem Ulcer of esophagus (67141002) Esophageal ulcer without bleeding (K22.10) Active confirmed Vital Signs Blood pressure diastolic 66 mm Hg 01/30/2025 Height 70 in 01/30/2025 Blood pressure systolic 142 mm Hg 01/30/2025 Weight 154 lbs 01/30/2025 BMI 22.09 kg/m2 01/30/2025 Encounters Encounter Location Date Provider Diagnosis Kiko Coats MD [address] [place] [address] [id number] 11/13/2024 Kiko Coats Type 2 diabetes mellitus without complication E11.9 ; Encounter for administration of vaccine Z23 ; Essential hypertension I10 ; Low HDL (under 40) E78.6 ; Anemia, unspecified anemia type D64.9 and High triglycerides E78.1 Kiko Coats MD [address] [place] [address] [id number] 01/23/2025 Kiko Coats Abdominal pain R10.9 and Weight loss R63.4 Kiko Coats MD [address] [place] [address] [id number] 01/30/2025 Kiko Coats Abdominal pain R10.9 and Weight loss R63.4 Kiko Coats MD [address] [place] [address] [id number] 02/25/2024 Kiko Coats COPD with exacerbati on J44.1 Kiko Coats MD [address] [place] [address] [id number] 03/06/2024 Kiko Coats Lumbar disc disease M51.9 and Bronchitis J40 Kiko Coats MD [address] [place] [address] [id number] 05/09/2024 Kiko Coats Panlobular emphysema J43.1 ; Type 2 diabetes mellitus without complication E11.9 and Low HDL (under 40) E78.6 Kiko Coats MD [address] [place] [address] [id number] 08/04/2024 Kiko Coats Esophageal ulcer without bleeding K22.10 ; Panlobular emphysema J43.1 and Essential hypertension I10 Kiko Coats MD [address] [place] [address] [id number] 11/17/2024 Kiko Coats Panlobular emphysema J43.1 ; Tinea B35.9 ; Type 2 diabetes mellitus without complication E11.9 ; Prostate cancer C61 ; Essential hypertension I10 ; High triglycerides E78.1 ; Anemia, unspecified anemia type D64.9 and Depression screening Z13.31 Kiko Coats MD [address] [place] [address] [id number] 12/12/2024 Kiko Coats Gall stones K80.20 Kiko Coats MD [address] [place] [address] [id number] 01/19/2025 Kiko Coats Bile leak K83.9 Kiko Coats MD [address] [place] [address] [id number] 03/14/2024 Kiko Coats Lumbar disc disease M51.9 Kiko Coats MD [address] [place] [address] [id number] 07/24/2024 Kiko Coats MD [address] [place] [address] [id number] 07/31/2024 Kiko Coats MD [address] [place] [address] [id number] 09/19/2024 Kiko Coats MD [address] [place] [address] [id number] 10/07/2024 Kiko Coats MD [address] [place] [address] [id number] 12/25/2024 Kiko Coats MD [address] [place] [address] [id number] 12/26/2024 Kiko Coats MD [address] [place] [address] [id number] 01/01/2025 Kiko Coats MD [address] [place] [address] [id number] 11/07/2024 Kiko Coats Assessments Encounter Date Diagnosis [...] patient. 01/23/2025 Weight loss (ICD-10 - R63.4) 01/30/2025 Abdominal pain (ICD-10 - R10.9) seems to be improving 01/30/2025 Weight loss (ICD-10 - R63.4) getting better with protein drinks 02/25/2024 COPD with exacerbation (ICD-10 - J44.1) patient verbalized understanding of medication and directions for use 03/06/2024 Lumbar disc disease (ICD-10 - M51.9) 03/06/2024 Bronchitis (ICD-10 - J40) patient verbalized understanding of medication and directions for use. x-ray order faxed to [facility] 05/09/2024 Panlobular emphysema (ICD-10 - J43.1) doing well using his updrafts once a day, will continue current regiment 08/04/2024 Esophageal ulcer without bleeding (ICD-10 - K22.10) need results of biopsy/ will send for results 11/17/2024 Panlobular emphysema (ICD-10 - J43.1) stable, will continue current regiment 11/17/2024 Tinea (ICD-10 - B35.9) 12/12/2024 Gall stones (ICD-10 - K80.20) order faxed to [facility] cs dept 01/19/2025 Bile leak (ICD-10 - [...] 2022 Next Appt Details Provider Name:Kiko chatman, 02/16/2025 10:15:00 AM, [address], [address], [place], [id number], Provider Name:Kiko De Leon ier, 05/14/2025 07:45:00 AM, [address], [address], [place], [phone], Provider Name:Kiko De Leon ier, 05/21/2025 09:00:00 AM, [address] [facility], [address] [place], [phone], Provider Name:Kiko De Leon ier, 12/10/2025 07:15:00 AM, [address] [facility], [address] [place], [phone], Provider Name:Kiko De Leon ier, 12/17/2025 09:30:00 AM, [address] [facility], [address] [place], [phone], Insurance Providers Payer Name Payer Address Payer Phone Subscriber Number Group Number Insured Name Patient Relationship to Insured Coverage Start Date Coverage End Date MEDICARE [employer]IC [address] [place] [address] [id number] Mikal Elizondo Self - patient is the insured [employer] [address] [place] [address] [phone] [id number] [phone] Caro Mikal Self - patient is the insured Medical (General) History Medical History History ICD Code esophageal stricture hypercholesterolemia hypertension asthma - mild intermittent colonoscopy 02/2014 and [facility] endo [facility] probably not able to access those records but will be followed by them. possibly someone in [facility] did it colonoscopy and endoscopy 2022
--- OUTSIDE RECORDS SUMMARY | 2025-01-31 08:55 | XMS_ITS | Patient Health Record ---
Author Organization [facility] Address [address] [place] [phone] Support Name Relationship Address Phone QUENTIN DENNY Guarantor Unknown [phone] Reason For Referral No Information Plan Of Treatment No Information
== END 2025-01-31 08:48 | disposition home or self-care (01) ==
LOC: HO.US 08:47
PROVIDERS: PCP Internal Medicine; Visit Provider Surgery
DX: K66.8 Other specified disorders of peritoneum (principal); T81.89XA Other complications of procedures, not elsewhere classified, initial encounter
CPT/HCPCS: 76705

== ENCOUNTER → 2025-01-31 08:49 | Outpatient (BNV) | payer MEDICARE, OTHER, SELFPAY | PROVIDERS: PCP Internal Medicine; Visit Provider Radiology Diagnostic Radiology | DX: I71.43 Infrarenal abdominal aortic aneurysm, without rupture (principal); Z90.49 Acquired absence of other specified parts of digestive tract | CPT/HCPCS: 76705 ==

== ENCOUNTER 2025-02-05 10:36 | Outpatient (AMB) | payer MEDICARE, OTHER, SELFPAY ==
--- OUTSIDE RECORDS SUMMARY | 2024-11-13 03:00 | XMS_ITS ---
Author Organization Kiko Coats MD Address [address] [place], [place] [phone] Care Team Providers Care Environmental Aid Name Role Phone Jorge LTian Primary Care Provider Results Component Value Reference Range Notes Complete Blood Count Auto Di ff Reviewed date:11/13/2024 04:28:00 PM Interpretation: Performing Lab:[facility], [address] [place] [phone] Notes/Report: White Blood Count 9.2 4.8-10.8 X10*3/uL Red Blood Count 4.45 4.60-5.80 X10*6/uL Hemoglobin 13.1 14.0-18.0 g/dl Hematocrit 41.0 42.0-52.0 % Mean Corpuscular Volume 92.1 80.0-98.0 fL Mean Corpuscular Hemoglobin 29.4 27.0-33.0 pg Mean Corpuscular HGB Conc 32.0 31.0-36.0 g/dl Red Cell Distribution Width 15.9 11.0-16.0 % Platelet Count 176 160-400 X10*3/uL Mean Platelet Volume 11.7 9.4-12.4 fL Neutrophils Percent Auto 69.4 45-73 % Imm Gran Pct Auto 0.8 0.0-0.4 % Lymphocytes Percent Auto 15.9 20-40 % Monocytes Percent Auto 9.8 2-11 % Eosinophils Percent Auto 2.8 0-4 % Basophils Percent Auto 1.3 0-2 % NRBC Pct Auto 0.0 0.0-0.2 /100WBC Neutrophils Absolute Auto 6.4 2.0-8.3 x10*3/u L Imm Gran Abs Auto 0.07 0.00-0.03 X10*3/uL Lymphocytes Absolute Auto 1.5 1.2-4.9 X10*3/u L Monocytes Absolute Auto 0.9 0.1-1.2 X10*3/uL Eosinophils Absolute Auto 0.3 0.0-0.4 X10*3/u L Basophils Absolute Auto 0.1 0.0-0.2 X10*3/uL NRBC Abs Auto 0.000 0.0-0.012 X10*3/uL [facility]. Panel Fa st Reviewed date:11/13/2024 04:28:23 PM Interpretation: Performing Lab:[facility], [address] [place] [phone] Notes/Report: Sodium 142 135-145 mmol/L Potassium 3.9 3.3-5.1 mmol/L Chloride 104 96-108 mmol/L Carbon Dioxide 29 22-29 mmol/L Anion Gap 13 12-20 Blood Urea Nitrogen 16 9-16 mg/dL Creatinine 1.36 0.5-1.4 mg/dL Estimated Glomerular Filt Rate 51 Chronic Kidney Disease: Estimated GFR < 60 mL/min/1.73m2 Severe Kidney Disease: Estimated GFR < 15 mL/min/1.73m2 Glucose Fasting 130 60-99 mg/dL A fasting glucose of 126 mg/dl or greater on more than one occasion is considered diagnostic of diabetes. Calcium 9.0 8.4-10.2 mg/dL Bilirubin Total 0.8 0.0-1.0 mg/dL Aspartate Amino Transferase 22 5-37 U/L Alanine Aminotransferase 18 0-40 U/L Total Protein 7.3 6.5-8.0 g/dL Albumin Level 4.4 3.5-5.0 g/dL Alkaline Phosphatase 81 39-117 U/L IRON PROFILE Reviewed date:11/13/2024 04:19:48 PM Interpretation: Performing Lab:[facility], [address] [place] [phone] Notes/Report: Iron 63 45-160 mcg/dL Total Iron Binding Capacity 244 228-428 mcg/d L Percent Iron Saturation 26 15-50 % Unsaturated Iron Binding 181 Lipid Panel Reviewed date:11/13/2024 04:24:20 PM Interpretation: Performing Lab:[facility], [address] [place] [phone] Notes/Report: Triglycerides 283 <150 mg/dL Desirable Triglyceride: less than 150 mg/dL Borderline High Triglyceride 150-199 mg/dL High Triglyceride: 200-499 mg/dL Very High Triglyceride: greater than or equal to 5OO mg/dL Cholesterol 139 <200 mg/dL Desirable Cholesterol: less than 200 mg/dL Borderline High Cholesterol: 200-239 mg/dL High Cholesterol: greater than 239 mg/dL LDL Cholesterol Calculated 55 <100 mg/dL Desirable LDL: less than 100 mg/dL Near Optimal/Above Optimal LDL: 110-129 mg/dL Borderline High LDL: 130-159 mg/dL High LDL: 160-189 mg/dL Very High LDL: greater than or equal to 190 mg/dL HDL Cholesterol 28 >40 mg/dL Desirable HDL: greater than 40 mg/dL Note: This HDL assay may give artificially low results in patients with liver disease. PSA,Total (Free>4and<10) Reviewed date:11/13/2024 04:24:30 PM Interpretation: Performing Lab:[address] [phone] Notes/Report: PSA,Total (Free>4and<10) < 0.10 0.00-4.00 ng/mL [...] Chemiluminescent Microparticle Immunoassay (CMIA) Microalbumin, Random Reviewed date:11/13/2024 04:25:27 PM Interpretation: Performing Lab:[address] [phone] Notes/Report: Creatinine Urine 70.25 Microalbumin Urine 79.0 Microalbum/Creatinine Ratio Ur 112.4 <30 ug/mg cr Albumin/Creatinine Ratio Reference Ranges: Normal: < 30 ug/mg creatinine Microalbuminuria: 30 - 300 ug/mg creatinine Clinical Albuminuria: > 300 ug/mg creatinine Hemoglobin A1c Reviewed date:11/13/2024 04:19:36 PM Interpretation: Performing Lab:[address] [phone] Notes/Report: Hemoglobin A1c % 6.3 <6.0 % Hemoglobin A1C Reference Range Adults: 4.8 - 6.0 % Non diabetic: < 6.0 % Goal: < 7.0 % Additional Action Suggested: > 8.0 % Note: Hemoglobin A1c results are invalid for patients with abnormal amounts of HbF. Blood transfusions may impact the HbA1c concentration in the patient sample. Estimated Average Glucose 134 eAG = Estimated average glucose which is %A1C expressed as average glucose, using the formula of the Z2H-Fqkignc Average Glucose study (ADAG), Diabetes Care, Vol.31,#8, Sep. 2007 UA ClnCatch+Micro w/rflx Cul t Reviewed date:11/13/2024 04:28:44 PM Interpretation: Performing Lab:[address] [phone] Notes/Report: [id number] 0800 Urine, Clean Catch Color Urine Yellow Appearance Urine Clear PH 7.0 5.0-9.0 Glucose Urine UA >=1000 Negative mg/dL Urine Blood Negative Negative Specific [place] - Urine 1.010 1.005-1.025 Urine Protein Trace Neg-Trace mg/dL Urine Ketones Negative Negative mg/dL Nitrite Urine Negative Negative Leukocyte Esterase Urine Negative Negative RBC Urine 0-2 0-2 /HPF WBC Urine 0-5 0-5 /HPF Squamous Epithelial Cell Urine 0-2 0-2 /HPF Bacteria Urine None Seen None Seen Hyaline Casts Urine 0-2 0-2 /LPF REASON FOR VISIT yearly fasting labs Immunizations Vaccine Route Administration Date Status Comme nts Influenza High Dose IM Intramuscular 11/13/2024 Administer ed Encounters Encounter Location Date Provider Diagnosis Kiko Coats MD [address] [place] [phone] 11/13/2024 Kiko Coats Type 2 diabetes mellitus without complication E11.9 ; Encounter for administration of vaccine Z23 ; Essential hypertension I10 ; Low HDL (under 40) E78.6 ; Anemia, unspecified anemia type D64.9 and High triglycerides E78.1 Assessments Encounter Date Diagnosis (ICD Code) Assessment Notes Treatment Notes Treatment Clinical Notes Section Notes 11/13/2024 Type 2 diabetes mellitus without complication (ICD-10 - E11.9) 11/13/2024 Encounter for administration of vaccine (ICD-10 - Z23) 11/13/2024 Essential hypertension (ICD-10 - I10) 11/13/2024 Low HDL (under 40) (ICD-10 - E78.6) 11/13/2024 Anemia, unspecified anemia type (ICD-10 - D64.9) 11/13/2024 High triglycerides (ICD-10 - E78.1) Plan Of Treatment Next Appt Details Provider Name:Kiko chatman, 02/16/2025 10:15:00 AM, [address] [place] [address], [phone], Provider Name:Kiko chatman, 05/14/2025 07:45:00 AM, [address] [place] [address], [address], [phone], Provider Name:Kiko chatman, 05/21/2025 09:00:00 AM, [address] [place] [address], [phone], Provider Name:Kiko chatman, 12/10/2025 07:15:00 AM, [address] [place] [address], [phone], Provider Name:Kiko De Leon ier, 12/17/2025 09:30:00 AM, [address], [address], [place], [phone], Progress Notes * Mikal DENNYDOB: [birth year] (74 yo M)Acc No.[id number]:11/13/2024 Progress Note Patient: Mikal VITALE Provider: La Coats MD :1950 A ge:74 Y S ex:Male Date:11/13/2024 Address:[address], [id number] Subjective: * Chief Complaints: * 1 . Yearly fasting labs. * Medical History: Objective: * Vitals: Assessment: * Assessment: 1. E ncounter for administration of vaccine - Z23 (Primary) 2 . T ype 2 diabetes mellitus without complication - E11.9 3 . E ssential hypertension - I10? 4. L ow HDL (under 40) - E78.6 5 . A nemia, unspecified anemia type - D64.9 6 . H igh triglycerides - E78.1 Plan: * Treatment: 2. E ssential hypertension L AB: Complete Blood Count Auto Diff (Collection Date & Time - 11/13/2024 08:00 AM) L AB: [facility]. Panel Fast (Collection Date & Time - 11/13/2024 08:00 AM) L AB: IRON PROFILE (Collection Date & Time - 11/13/2024 08:00 AM) L AB: Lipid Panel (Collection Date & Time - 11/13/2024 08:00 AM) L AB: PSA,Total (Free>4and<10) (Collection Date & Time - 11/13/2024 08:00 AM) L AB: Microalbumin, Random (Collection Date & Time - 11/13/2024 08:00 AM) L AB: Hemoglobin A1c (Collection Date & Time - 11/13/2024 08:00 AM) L AB: UA ClnCatch+Micro w/rflx Cult (Collection Date & Time - 11/13/2024 08:00 AM) 3. L ow HDL (under 40) L AB: Complete Blood Count Auto Diff (Collection Date & Time - 11/13/2024 08:00 AM) L AB: [facility]. Panel Fast (Collection Date & Time - 11/13/2024 08:00 AM) L AB: IRON PROFILE (Collection Date & Time - 11/13/2024 08:00 AM) L AB: Lipid Panel (Collection Date & Time - 11/13/2024 08:00 AM) L AB: PSA,Total (Free>4and<10) (Collection Date & Time - 11/13/2024 08:00 AM) L AB: Microalbumin, Random (Collection Date & Time - 11/13/2024 08:00 AM) L AB: Hemoglobin A1c (Collection Date & Time - 11/13/2024 08:00 AM) L AB: UA ClnCatch+Micro w/rflx Cult (Collection Date & Time - 11/13/2024 08:00 AM) 4. A nemia, unspecified anemia type L AB: Complete Blood Count Auto Diff (Collection Date & Time - 11/13/2024 08:00 AM) L AB: [facility]. Panel Fast (Collection Date & Time - 11/13/2024 08:00 AM) L AB: IRON PROFILE (Collection Date & Time - 11/13/2024 08:00 AM) L AB: Lipid Panel (Collection Date & Time - 11/13/2024 08:00 AM) L AB: PSA,Total (Free>4and<10) (Collection Date & Time - 11/13/2024 08:00 AM) L AB: Microalbumin, Random (Collection Date & Time - 11/13/2024 08:00 AM) L AB: Hemoglobin A1c (Collection Date & Time - 11/13/2024 08:00 AM) L AB: UA ClnCatch+Micro w/rflx Cult (Collection Date & Time - 11/13/2024 08:00 AM) 5. H igh triglycerides L AB: Complete Blood Count Auto Diff (Collection Date & Time - 11/13/2024 08:00 AM) L AB: [facility]. Panel Fast (Collection Date & Time - 11/13/2024 08:00 AM) L AB: IRON PROFILE (Collection Date & Time - 11/13/2024 08:00 AM) L AB: Lipid Panel (Collection Date & Time - 11/13/2024 08:00 AM) L AB: PSA,Total (Free>4and<10) (Collection Date & Time - 11/13/2024 08:00 AM) L AB: Microalbumin, Random (Collection Date & Time - 11/13/2024 08:00 AM) L AB: Hemoglobin A1c (Collection Date & Time - 11/13/2024 08:00 AM) L AB: UA ClnCatch+Micro w/rflx Cult (Collection Date & Time - 11/13/2024 08:00 AM) * Immunizations: Influenza High Dose : 0.5 mL (Dose No:1) (Route: Intramuscular) given by Anahi Zazueta , Office Staff on Left Deltoid * Procedure Codes: 3 6415 VENIPUNCT, ROUTINE*, 67734 FLU VACC PRSV FREE INC ANTIG, G0008 ADMN FLU VAC NO FEE SCHED SAME DAY * * The named appointment provid er may or may not be the originator of this progress note, and it is not deemed complete until electronically signed by the appointment provider. Sign off status: Pending * Provider: La Coats MD Date: 0 11/13/2024 Generated for Maryam fontaine/Pamela/Tishitting on: 1 04/08/2024 01:20 PM EST
--- OUTSIDE RECORDS SUMMARY | 2024-11-17 05:30 | XMS_ITS ---
Author Organization Kiko Coats MD Address [address] [place], [place] [id number] Care Team Providers Care Information Systems Operator Name Role Phone Kiko Coats Primary Care Provider [phone] Allergies No Known Allergies REASON FOR VISIT [...] kg/m2 11/17/2024 weight is down 3 pounds [facility] 08-04-24 Encounters Encounter Location Date Provider Diagnosis Kiko Coats MD [address] [place] [address] [place] [phone] 11/17/2024 Kiko Coats Panlobular emphysema J43.1 ; [...] 30 days Ketoconazole 2 % 1 application Tire Debeader ally Once a day for 30 days [...] Reason: Provider Name:Kiko chatman, 02/16/2025 10:15:00 AM, [address] [place] [address] [facility], [address], [place], [phone], Provider Name:Kiko chatman, 05/14/2025 07:45:00 AM, [address] [place] [address], [address], [place], [phone], Provider Name:Kiko chatman, 05/21/2025 09:00:00 AM, [address], [address], [place], [place], [phone], Provider Name:Kiko De Leon ier, 12/10/2025 07:15:00 AM, [address], [address], [place], [place], [phone], Provider Name:Kiko De Leon ier, 12/17/2025 09:30:00 AM, [address], [address], [place], [phone], Progress Notes * Mikal DENNYDOB: [birth year] (74 yo M)Acc No.[id number]:11/17/2024 Patient: Mikal VITALE Provider: La Coats MD :1950 A ge:74 Y S ex:Male Date:11/17/2024 Address:[address], [place] Subjective: * Chief Complaints: * R eview [...] Average Glucose 134 - mg/dL L ab:Comprehensive [place]. Panel Fast (Order Date - 11/13/2024) (Collection [...] 11/17/2024 Generated for Maryam fontaine/Pamela/Veronikaransmitting on: 1 04/08/2024 01:23 PM EST History and Physical Notes * [...]
--- OUTSIDE RECORDS SUMMARY | 2024-12-12 06:45 | XMS_ITS ---
Author Organization Kiko Coats MD Address [address] [place], [place] [phone] Care Team Providers Care Sorority Mother Name Role Phone Kiko Coats Primary Care Provider [phone] Allergies No Known Allergies REASON FOR VISIT [...] Status W/U Status Risk Notes Problem Gallstone ([id number]) Gall stones (K80.20) Active confirmed Vital Signs Blood pressure systolic 124 mm Hg 12/13/19 25 Blood pressure diastolic 60 mm Hg 025 Height 70 in 12/12/2024 Weight 168 lbs 12/12/2024 BMI 24.1 kg/m2 12/12/2024 weight is down 5 pounds [facility] e 11-17-24 Encounters Encounter Location Date Provider Diagnosis Kiko Coats MD [address] [place] [address] [place] [phone] 12/12/2024 Kiko Coats Gall stones K80.20 Assessments Encounter Date Diagnosis (ICD Code) Assessment Notes Treatment Notes Treatment Clinical Notes Section Notes 12/12/2024 Gall stones (ICD-10 - K80.20) order faxed to [facility] dept Plan Of Treatment Treatment Notes Assessment Notes Gall stones order faxed to [facility] s dept Pending Test Test Name Order Date US ABD 12/12/2024 Next Appt Details Follow Up: after us, Reason: Provider Name:Kiko chatman, 02/16/2025 10:15:00 AM, [address] [place] [address], [address], [phone], Provider Name:Kiko de la or, 05/14/2025 07:45:00 AM, [address] [place] [address], [address], [phone], Provider Name:Kiko De Leon ier, 05/21/2025 09:00:00 AM, [address] [place] [address], [address], [phone], Provider Name:Kiko de la or, 12/10/2025 07:15:00 AM, [address] [place] [address], [address], [phone], Provider Name:Kiko de la or, 12/17/2025 09:30:00 AM, [address] [place] [address], [address], [phone], Progress Notes * Mikal DENNYDOB: [birth year] (74 yo M)Acc No.[id number]:12/12/2024 Progress Notes Patient: Mikal VITALE Provider: La Coats MD :1950 A ge:74 Y S ex:Male Date:12/12/2024 Address:[address], [place], [place] Subjective: * Chief Complaints: * S TOMACH [...] La Coats MD Date: Generated for Maryam fontaine/Pamela/Travis on: 04/08/2024 01:22 PM EST History and Physical Notes * Examination Category Sub-Category Detail Notes Category Not es General Examination GENERAL APPEARANCE: alert, w ell hydrated, in no distress ABDOMEN: no hepatosplenomegal y, no hepatosplenomegaly, abnormal with tender ruq.
--- OUTSIDE RECORDS SUMMARY | 2024-12-25 04:58 | XMS_ITS ---
Author Organization Kiko Coats MD Address [address] [place] [phone] Care Team Providers Care Donor Specialist Name Role Phone Jorge LTian Primary Care Provider REASON FOR VISIT us abd result Encounters Encounter Location Date Provider Diagnosis Kiko Coats MD [address] [place] [address] [address] [place] [phone] 12/25/2024 Kiko Coats Plan Of Treatment Next Appt Details Provider Name:Kiko chatman, 02/16/2025 10:15:00 AM, [address] [place] [address], [address], [phone], Provider Name:Kiko chatman, 05/14/2025 07:45:00 AM, [address] [place] [address], [address], [phone], Provider Name:Kiko de la or, 05/21/2025 09:00:00 AM, [address], [address], [place], [place], [phone], Provider Name:Kiko De Leon ier, 12/10/2025 07:15:00 AM, [address] [place] [address], [address], [place], [place], [phone], Provider Name:Kiko De Leon ier, 12/17/2025 09:30:00 AM, [address] [place] [address], [address], [place], [place], [phone], Progress Notes * CELSAHAILEMikalDOB: [birth year] (74 yo M)Acc No.[id number]:12/25/2024 Patient: Mikal VITALE :1950 A ge:74 Y S ex:Male Address:[address], [place] [address] * true * Date: Generated for Maryam fontaine/Pamela/eTransmitting on: 04/08/2024 01:21 PM EST
--- OUTSIDE RECORDS SUMMARY | 2024-12-26 09:35 | XMS_ITS ---
Author Organization Kiko Coats MD Address [address] [place] [phone] Care Team Providers Care Concrete Buildings Assembler Name Role Phone Jorge L Kiko Primary Care Provider [phone] Encounters Encounter Location Date Provider Diagnosis Kiko Coats MD [address] [place] [address] [place] [phone] 12/26/2024 Kiko Coats Plan Of Treatment Next Appt Details Provider Name:Kiko De Leon ier, 02/16/2025 10:15:00 AM, [address] [place] [address], [address], [phone], Provider Name:Kiko de la or, 05/14/2025 07:45:00 AM, [address] [place] [address], [address], [phone], Provider Name:Kiko de la or, 05/21/2025 09:00:00 AM, [address], [address], [place], [place], [phone], Provider Name:Kiko De Leon ier, 12/10/2025 07:15:00 AM, [address] [place] [address], [address], [place], [place], [phone], Provider Name:Kiko De Leon ier, 12/17/2025 09:30:00 AM, [address] [place] [address], [address], [place], [place], [phone], Progress Notes * CELSAHAILEMikalDOB: [birth year] (74 yo M)Acc No.[id number]:12/26/2024 Patient: Mikal VITALE :1950 A ge:74 Y S ex:Male Address:[address], [place] [address] * true * Date: Generated for Maryam fontaine/Pamela/eTransmitting on: 04/08/2024 01:21 PM EST
--- OUTSIDE RECORDS SUMMARY | 2025-01-01 08:23 | XMS_ITS ---
Author Organization Kiko Coats MD Address [address] [place] [phone] Care Team Providers Care Vascular Tech Name Role Phone Kiko Coats Primary Care Provider REASON FOR VISIT ER Encounters Encounter Location Date Provider Diagnosis Kiko Coats MD [address] [facility] [address] [place] [phone] 01/01/2025 Kiko Coats Plan Of Treatment Next Appt Details Provider Name:Kiko chatman, 02/16/2025 10:15:00 AM, [address] [place] [address], [address], [phone], Provider Name:Kiko chatman, 05/14/2025 07:45:00 AM, [address] [place] [address], [address], [phone], Provider Name:Kiko chatman, 05/21/2025 09:00:00 AM, [address], [address], [place], [place], [phone], Provider Name:Kiko De Leon jaironr, 12/10/2025 07:15:00 AM, [address] [place] [address], [address], [place], [place], [phone], Provider Name:Kiko De Leon ier, 12/17/2025 09:30:00 AM, [address] [place] [address], [address], [place], [place], [phone], Progress Notes * CELSAHAILEMikalDOB: [birth year] (74 yo M)Acc No.[id number]:01/01/2025 Patient: Mikal VITALE :1950 A ge:74 Y S ex:Male Address:[address], [place] [address] * true * Date: Generated for Maryam fontaine/Pamela/eTransmitting on: 04/08/2024 01:21 PM EST
--- OUTSIDE RECORDS SUMMARY | 2025-01-19 06:45 | XMS_ITS ---
Author Organization Kiko Coats MD Address [address] [place], [place] [address] Care Team Providers Care Twisting Press Operator Name Role Phone Kiko Coats Primary Care Provider Allergies No Known Allergies Results Component Value Reference Range Notes US abdomen limited Reviewed date:01/20/2025 02:34:16 PM Interpretation: Performing Lab: Notes/Report: [address] [address] Ultrasound Report Signed Patient: Mikal Denny MR#: [id number] : 1950 Acct:[id number] Age/Sex: 74 / M ADM Date: 01/20/25 Loc: HO.US Attending Dr: Kiko Coats MD Ordering Physician: Kiko Coats MD Date of Service: 01/20/25 Procedure(s): US abdomen limited Accession Number(s): [id number] cc: Kiko Coats MD Reason for Exam: Bile Leak CLINICAL HISTORY: Bile Leak US abdomen limited Comparison: CT/[place]/SR - CT ABDOMEN PELVIS WITH IV CONTRAST [...] the gallbladder fossa, not measured by the general contractor, roughly 2.5 x 2.7 x 3.7 cm [...] 01/20/25 1113 DD/ 1112 TD/TT: 01/20/25 1112 Elementary Tutor: [place] [address] Ultrasound Report Signed Patient: Yadira Denny MR#: [id number] : 1950 Acct:[id number] Age/Sex: 74 / M ADM Date: 01/20/25 Loc: HO.US Attending Dr: Kiko Coats MD Ordering Physician: Kiko Coats MD Date of Service: 01/20/25 Procedure(s): US abd omen limited Accession Number(s): [id number] cc: Kiko Coats MD Reason for Exam: Bile Leak CLINICAL HISTORY: Bile Leak US abdomen limited Comparison: CT/[place]/SR - CT ABDOMEN PELVIS WITH IV CONTRAST [...] the gallbladder fossa, not measured by the general contractor, roughly 2.5 x 2.7 x 3.7 cm [...] 01/20/25 1113 DD/ 1112 TD/TT: 01/20/25 1112 Elementary Tutor: REASON FOR VISIT must see, Accompanied buy [...] Risk Notes Problem Disorder of biliary tract (916555041) Bile leak (K83.9) Active confirmed Vital Signs Blood pressure systolic 130 mm Hg 01/20/20 25 Blood pressure diastolic 80 mm Hg 025 Height 70 in 01/19/2025 Weight 157 lbs 01/19/2025 BMI 22.52 kg/m2 01/19/2025 weight is down 11 pounds [facility] 10-24-25 Encounters Encounter Location Date Provider Diagnosis Kiko Coats MD [address] [place] [address] [place] [phone] 01/19/2025 Kiko Coats Bile leak K83.9 Assessments [...] Details Follow Up: sunday, Reason: Provider Name:Kiko Josephcalli ier, 02/16/2025 10:15:00 AM, [address] [place] [address], [address] [place] [address], [phone], Provider Name:Kiko Zhao Moises ier, 05/14/2025 07:45:00 AM, [address] [place] [address], Suite [facility], [place], [place], [phone], Provider Name:Kiko Zhao Moises ier, 05/21/2025 09:00:00 AM, [address] [place] [address], [address] [place] [address], [phone], Provider Name:Kiko De Leon ier, 12/10/2025 07:15:00 AM, [address] [place] [address], [place] [address], [place], [place], [phone], Provider Name:Kiko De Leon ier, 12/17/2025 09:30:00 AM, [address] [place] [address], [place] [address], [place], [place], [phone], Progress Notes * Mikal DENNYDOB: [birth year] (74 yo M)Acc No.[id number]:01/19/2025 Patient: Mikal VITALE Provider: La Coats MD :1950 A ge:74 Y S ex:Male Date:01/19/2025 Address:[address], [place] Subjective: * Chief Complaints: * M ust [...] Coats MD Date: 03/22/2024 Generated for Maryam fontanie/Pamela/eTransmitting on: 04/08/2024 01:22 PM EST History and [...]
--- OUTSIDE RECORDS SUMMARY | 2025-01-23 05:30 | XMS_ITS ---
Author Organization Kiko Coats MD Address [address] [place], [place] [phone] Care Team Providers Care Substance Abuse Counselor Name Role Phone Jorge LTian Primary Care Provider Allergies No Known Allergies Results Component Value Reference Range Notes Complete Blood Count Auto Di ff Reviewed date:01/23/2025 06:39:11 PM Interpretation: Performing Lab:[facility], [address] [place] [phone] Notes/Report: White Blood Count 12.0 4.8-10.8 X10*3/uL [...] te Reviewed date:01/23/2025 06:38:02 PM Interpretation: Performing Lab:[facility], [address] [place] [phone] Notes/Report: Erythrocyte Sedimentation Rate 87 0-15 MM/HR Patients with polycythemia and many hemoglobin abnormalities may have depressed sed rates whereas patients with anemia may have elevated sed rates. Comprehensive [place]. Panel Fa st Reviewed date:01/23/2025 06:42:44 PM Interpretation: Performing Lab:[facility], [address] [place] [phone] Notes/Report: Sodium 139 135-145 mmol/L Potassium 4.0 [...] Magnesium Reviewed date:01/23/2025 06:38:10 PM Interpretation: Performing Lab:[facility], [address] [place] [phone] Notes/Report: Magnesium 2.0 1.6-2.6 mg/dL REASON FOR [...] kg/m2 01/23/2025 weight is down 4 pounds [facility] [id number] Encounters Encounter Location Date Provider Diagnosis Kiko Coats MD [address] [place] [address] [place] [phone] 01/23/2025 Kiko Coats Abdominal pain R10.9 and [...] Week, Reason: Provider Name:Kiko de la or, 02/16/2025 10:15:00 AM, [address] [place] [address], [address], [phone], Provider Name:Kiko De Leon ier, 05/14/2025 07:45:00 AM, [address] [place] [address], [address], [phone], Provider Name:Kiko De Leon ier, 05/21/2025 09:00:00 AM, [address] [place] [address], [address], [phone], Provider Name:Kiko De Leon ier, 12/10/2025 07:15:00 AM, [address] [place] [address], [address], [phone], Provider Name:Kiko Pavel Moises de la or, 12/17/2025 09:30:00 AM, [address] [place] [address], [address], [phone], Progress Notes * Mikal DENNYDOB: [birth year] (74 yo M)Acc No.[id number]:01/23/2025 Patient: Mikal VITALE Provider: La Coats MD :1950 A ge:74 Y S ex:Male Date:01/23/2025 Address:[address], [id number] Subjective: * Chief Complaints: * M ust seeAccompanied by * HPI: S ymptom(s): patient is a [...] A dmits N ausea. * Medical History: * Surgical [...] BP:122/68, Wt-k.4. weight is down 4 pounds [id number]. * Examination: G eneral Examination: GENERAL APPEARANCE: [...] * Follow Up: 1 Week * * Sign off status: Completed true * Provider: La Coats MD Date: 03/26/2024 Generated for Maryam fontaine/Pamela/eTransmitting on: 04/08/2024 01:23 PM EST History and Physical [...]
--- OUTSIDE RECORDS SUMMARY | 2025-01-30 10:00 | XMS_ITS ---
Author Organization Kiko Coats MD Address [address] [place], [place] [id number] Care Team Providers Care Dictating Machine Transcriber Name Role Phone Jorge L Kiko Primary Care Provider Allergies No Known Allergies [...] Encounters Encounter Location Date Provider Diagnosis Kiko Caots MD [address] [place] [address] [place] [id number] 01/30/2025 Kiko Coats Abdominal pain R10.9 and [...] Name:Kiko De Leon ier, 02/16/2025 10:15:00 AM, [address] [place] [address], [address], [phone], Provider Name:Kiko De Leon ier, 05/14/2025 07:45:00 AM, [address] [place] [address], [address], [phone], Provider Name:Kiok De Leon ier, 05/21/2025 09:00:00 AM, [address] [place] [address], [address], [phone], Provider Name:Kiko De Leon ier, 12/10/2025 07:15:00 AM, [address] [place] [address], [address], [phone], Provider Name:Kiko Pavel Moises ier, 12/17/2025 09:30:00 AM, [address] [place] [address], [address], [phone], Progress Notes * Mikal DENNYDOB: [birth year] (74 yo M)Acc No.[id number]:01/30/2025 Patient: Mikal VITALE Provider: La Coats MD :1950 A ge:74 Y S ex:Male Date:01/30/2025 Address:[address], [facility] [id number] Subjective: * Chief Complaints: * 1 . [...] [place] not [place] to [place] those records but will be followed by them. possibly someone in [facility] did it, Colonoscopy and endoscopy 2022. * [...] Coats MD Date: 04/02/2024 Generated for Maryam fontaine/Pamela/Veronikaransmitting on: 04/08/2024 01:22 PM EST History and [...]
--- OUTSIDE RECORDS SUMMARY | 2025-02-02 08:34 | XMS_ITS ---
Author Organization Kiko Coats MD Address [address] [place] [phone] Care Team Providers Care Tree Driller Name Role Phone Jorge L Kiko Primary Care Provider [phone] REASON FOR VISIT ES results Encounters Encounter Location Date Provider Diagnosis Kiko Coats MD [address] [place] [address] [address] [place] [id number] 02/02/2025 Kiko Coats Plan Of Treatment Next Appt Details Provider Name:Kiko De Leon ier, 02/16/2025 10:15:00 AM, [address] [place] [address], [address], [phone], Provider Name:Kiko chatman, 05/14/2025 07:45:00 AM, [address] [place] [address], [address], [phone], Provider Name:Kiko chatman, 05/21/2025 09:00:00 AM, [address], [address], [place], [place], [phone], Provider Name:Kiko De Leon ier, 12/10/2025 07:15:00 AM, [address] [place] [address], [address], [place], [place], [phone], Provider Name:Kiko De Leon ier, 12/17/2025 09:30:00 AM, [address] [place] [address], [address], [place], [place], [phone], Progress Notes * CELSAHAILEMikalDOB: [birth year] (74 yo M)Acc No.[id number]:02/02/2025 Patient: Mikal VITALE :1950 A ge:74 Y S ex:Male Address:[address], [place] [address] * true * Date: Generated for Maryam fontaine/Pamela/eTransmitting on: 04/08/2024 01:23 PM EST
--- NOTE | 2025-02-05 10:42 | MHC.OFFVIS ---
Vital Signs 02/05/25 10:43 Height 5 ft 10 in Weight 152 lb 6 oz BMI 21.9 BP 178/80 H Blood Pressure Location Rt brachial Position Sitting Pulse 94 Intake Visit Reasons: Biloma following surgery, US ffup Intake Note: Patient presents for US follow-up, biloma following surgery. Pt c/o; postprandial pain, denies vomiting. Humane Agent Required: No Accompanied by: Spouse Allergies No Known Allergies Allergy (Verified 02/05/25 10:50) HPI HPI Biloma following surgery, US ffup: Details: He is here for a follow-up after he developed a biloma tolerating laparoscopic cholecystectomy for acute cholecystitis He starting to feel better. He says he is gaining back his energy although he still has some occasional abdominal pain with oral intake I had sent him for a follow up ultrasound last week. This does not show any fluid collection. [facility] Medical History Biloma following surgery Biloma Postoperative pain HLD (hyperlipidemia) HTN (hypertension) Diabetes Carotid stenosis AAA (abdominal aortic aneurysm) Gallstones COPD (chronic obstructive pulmonary disease) Pulmonary emphysema Surgical History (Updated 02/05/25 @ 10:59 by Zohaib Mosher MD) Status post laparoscopic cholecystectomy History of laparoscopic cholecystectomy (~01/07/25) H/O prostatectomy H/O arterial bypass of lower limb History of left-sided carotid endarterectomy History of cholecystectomy History of bilateral knee replacement H/O bilateral cataract extraction History of AAA (abdominal aortic aneurysm) repair Social History Household Members: Spouse Housing: House Do you presently have visiting nurse or other home services: No Patient Tobacco Use Status: Former Tobacco user Tobacco use type: Cigarette service: Yes Review of Systems Const Denies chills and Denies fever(s) Card Denies chest pain and Denies dyspnea Resp Denies dyspnea GI Denies vomiting Physical Exam Vital Signs: Last Vital Signs Pulse 94 02/05/25 10:43 BP 178/80 H 02/05/25 10:43 BMI result Body Mass Index 21.9 Const Other: Looks well General: comfortable and no acute distress Eyes Other: Anicteric GI Other: All incisions well healed Palpation (GI): Soft to palpation, not firm, nontender and no guarding Assessment & Plan Assessment & Plan (1) Status post laparoscopic cholecystectomy: Code(s): Z90.49 - Acquired absence of other specified parts of digestive tract Category: Surgical Plan: Follow up ultrasound last week and does not show any residual biloma or any fluid collection He is starting to feel better. He is oral intake has improved a little bit now. He feels much better overall I advised him to try to eat small frequent meals so he can back some weight. I will see him again in the office next month. Coding Level of Care Code Global (64462) Diagnoses Status post laparoscopic cholecystectomy Z90.49
[2025-02-05 10:43] VITALS: BP 178/80; PULSE 94; BMI 21.9
--- OUTSIDE RECORDS SUMMARY | 2025-02-05 13:21 | XMS_ITS | Encounter Summary ---
Author Organization [facility] Address [address] [place] [phone] Phone Care Team Providers Care Form Maker Name Role Phone Lindy Buckner MD Primary Care Provider Encounter Details Date Type Department Care Team (Late st Contact Info) Description 08/10/2022 Procedure Pass [facility] Endoscopy Admitting Dept Virtual Department [address] [place] [address] Social History Tobacco Use Types Packs/Day Years [...] on filedocumented in this encounter Care Teams Form Maker Relationship Specialty Start Date End Date Lindy Buckner MD [address] [place] [address] PCP - General Internal Medicine 06/09/22 documented as of this encounter Additional Source Comments The information contained in this document represents components of the legal health record. It is not the complete legal health record.[facility]
--- OUTSIDE RECORDS SUMMARY | 2025-02-05 13:21 | XMS_ITS | Encounter Summary ---
Author Organization [facility] Address [address] [facility] [address] [place] [phone] Phone Care Team Providers Care Mechanical Process Engineer Name Role Phone Lindy Buckner MD Primary Care Provider Encounter Details Date Type Department Care Team (Late st Contact Info) Description 03/02/2023 Procedure Pass [facility] Endoscopy Admitting Dept Virtual Department [address] [place] [address] Social History Tobacco Use Types Packs/Day Years [...] on filedocumented in this encounter Care Teams Mechanical Process Engineer Relationship Specialty Start Date End Date Lindy Buckner MD [address] [place] [address] PCP - General Internal Medicine 06/09/22 documented as of this encounter Additional Source Comments The information contained in this document represents components of the legal health record. It is not the complete legal health record.[facility]
--- OUTSIDE RECORDS SUMMARY | 2025-02-05 13:22 | XMS_ITS | Patient Health Record ---
Author Organization Kiko Coats MD Address [address] [place], [place] [address] Care Team Providers Care Cargo Supervisor Name Role Phone Kiko Coats Primary Care Provider [phone] Allergies No Known Allergies Results Component Value Reference Range Notes Complete Blood Count Auto Di ff Reviewed date:11/13/2024 04:28:00 PM Interpretation: Performing Lab:[facility], [address] [place] [phone] Notes/Report: White Blood Count 9.2 4.8-10.8 X10*3/uL [...] NRBC Abs Auto 0.000 0.0-0.012 X10*3/uL Comprehensive Independence. Panel Fa st Reviewed date:11/13/2024 04:28:23 PM Interpretation: Performing Lab:[facility], [address] [place] [phone] Notes/Report: Sodium 142 135-145 mmol/L Potassium 3.9 [...] PROFILE Reviewed date:11/13/2024 04:19:48 PM Interpretation: Performing Lab:[facility], [address] [place] [phone] Notes/Report: Iron 63 45-160 mcg/dL Total Iron Binding Capacity 244 228-428 mcg/dL Percent Iron Saturation 26 15-50 % Unsaturated Iron Binding 181 Lipid Panel Reviewed date:11/13/2024 04:24:20 PM Interpretation: Performing Lab:[facility], [address] [place] [phone] Notes/Report: Triglycerides 283 <150 mg/dL Desirable Triglyceride: [...] (Free>4and<10) Reviewed date:11/13/2024 04:24:30 PM Interpretation: Performing Lab:[facility], [address] [place] [phone] Notes/Report: PSA,Total (Free>4and<10) < 0.10 0.00-4.00 ng/mL [...] Random Reviewed date:11/13/2024 04:25:27 PM Interpretation: Performing Lab:[address] [phone] Notes/Report: Creatinine Urine 70.25 Microalbumin Urine 79.0 Microalbum/Creatinine Ratio Ur 112.4 <30 ug/mg cr Albumin/Creatinine Ratio Reference Ranges: Normal: < 30 ug/mg creatinine Microalbuminuria: 30 - 300 ug/mg creatinine Clinical Albuminuria: > 300 ug/mg creatinine Hemoglobin A1c Reviewed date:11/13/2024 04:19:36 PM Interpretation: Performing Lab:[address] [phone] Notes/Report: Hemoglobin A1c % 6.3 <6.0 % [...] average glucose, using the formula of the E8Q-Pytkfwy Average Glucose study (ADAG), Diabetes Care, Vol.31,#8, Sep. 2007 UA ClnCatch+Micro w/rflx Cul t Reviewed date:11/13/2024 04:28:44 PM Interpretation: Performing Lab:[facility], [address] [place] [phone] Notes/Report: [id number] Urine, Clean Catch Color Urine Yellow Appearance Urine Clear PH 7.0 5.0-9.0 Glucose Urine UA >=1000 Negative mg/dL Urine Blood Negative Negative Specific [place] - Urine 1.010 1.005-1.025 Urine Protein Trace Neg-Trace mg/dL Urine Ketones Negative Negative mg/dL Nitrite Urine Negative Negative Leukocyte Esterase Urine Negative Negative RBC Urine 0-2 0-2 /HPF WBC Urine 0-5 0-5 /HPF Squamous Epithelial Cell Urine 0-2 0-2 /HPF Bacteria Urine None Seen None Seen Hyaline Casts Urine 0-2 0-2 /LPF US abdomen limited Reviewed date:01/20/2025 02:34:16 PM Interpretation: Performing Lab: Notes/Report: [address] [address] Ultrasound Report Signed Patient: Mikal Elizondo MR#: [id number] : 1950 Acct:[id number] Age/Sex: 74 / M ADM Date: 01/20/25 Loc: HO.US Attending Dr: Kiko Coats MD Ordering Physician: Kiko Coats MD Date of Service: 01/20/25 Procedure(s): US abdomen limited Accession Number(s): [id number] cc: Kiko Coats MD Reason for Exam: [...] the gallbladder fossa, not measured by the plastic boat buffer, roughly 2.5 x 2.7 x 3.7 cm [...] 01/20/25 1113 DD/ 1112 TD/TT: 01/20/25 1112 Chemical Lab Supervisor: [address] [address] Ultrasound Report Signed Patient: Yadira Elizondo MR#: [id number] : 1950 Acct:[id number] Age/Sex: 74 / M ADM Date: 01/20/25 Loc: HO.US Attending Dr: Kiko Coats MD Ordering Physician: Kiko Coats MD Date of Service: 01/20/25 Procedure(s): US abd omen limited Accession Number(s): [id number] cc: Kiko Coats MD Reason for Exam: [...] the gallbladder fossa, not measured by the plastic boat buffer, roughly 2.5 x 2.7 x 3.7 cm [...] 01/20/25 1113 DD/ 1112 TD/TT: 01/20/25 1112 Chemical Lab Supervisor: Complete Blood Count Auto Di ff Reviewed date:01/23/2025 06:39:11 PM Interpretation: Performing Lab:[facility], [address] [place] [phone] Notes/Report: White Blood Count 12.0 4.8-10.8 X10*3/uL [...] te Reviewed date:01/23/2025 06:38:02 PM Interpretation: Performing Lab:[facility], [address] [place] [phone] Notes/Report: Erythrocyte Sedimentation Rate 87 0-15 MM/HR Patients with polycythemia and many hemoglobin abnormalities may have depressed sed rates whereas patients with anemia may have elevated sed rates. Comprehensive Independence. Panel Fa st Reviewed date:01/23/2025 06:42:44 PM Interpretation: Performing Lab:[facility], [address] [place] [phone] Notes/Report: Sodium 139 135-145 mmol/L Potassium 4.0 [...] Magnesium Reviewed date:01/23/2025 06:38:10 PM Interpretation: Performing Lab:[facility], [address] [place] [phone] Notes/Report: Magnesium 2.0 1.6-2.6 mg/dL XR chest 2V Reviewed date:03/07/2024 12:57:23 PM Interpretation: Performing Lab: Notes/Report: [facility] Adult Primary Care [facility] [place] [address] XRay Report Signed Patient: Mikal Elizondo MR#: [id number] : 1950 Acct:[id number] Age/Sex: 73 / M ADM Date: 03/06/24 Loc: .HMGCX Attending Dr: Kiko Coats MD Ordering Physician: Kiko Coats MD Date of Service: 03/06/24 Procedure(s): XR chest 2V Accession Number(s): [id number] cc: Kiko Coats MD EXAMINATION: XR CHEST [...] 03/07/24 1212 DD/ 1406 TD/TT: 03/06/24 1410 Chemical Lab Supervisor: [facility] [address] [place] [address] [place] [address] XRay Report Signed Patient: Yadira Elizondo MR#: [id number] : 1950 Acct:[id number] Age/Sex: 73 / M ADM Date: 03/06/24 Loc: [facility] Attending Dr: Kiko Coats MD Ordering Physician: Kiko Coats MD Date of Service: 03/06/24 Procedure(s): XR chest 2V Accession Number(s): [id number] cc: Kiko Coats MD EXAMINATION: XR CHEST [...] 03/07/24 1212 DD/ 1406 TD/TT: 03/06/24 1410 Chemical Lab Supervisor: Liver Panel Reviewed date:05/05/2024 12:51:46 PM Interpretation: Performing Lab:[facility], [address] [place] [phone] Notes/Report: Bilirubin Total 0.4 0.0-1.0 mg/dL Bilirubin Direct 0.2 0.0-0.5 mg/dL Aspartate Amino Transferase 21 5-37 U/L Alanine Aminotransferase 24 0-40 U/L Total Protein 7.0 6.5-8.0 g/dL Albumin Level 4.0 3.5-5.0 g/dL Alkaline Phosphatase 51 39-117 U/L Glucose Fasting Reviewed date:05/05/2024 12:52:03 PM Interpretation: Performing Lab:[facility], [address] [place] [phone] Notes/Report: Glucose Fasting 97 60-99 mg/dL Lipid Panel with Reflex Reviewed date:05/05/2024 04:32:27 PM Interpretation: Performing Lab:[facility], [address] [place] [phone] Notes/Report: Triglycerides 251 <150 mg/dL Desirable Triglyceride: [...] A1c Reviewed date:05/05/2024 11:59:28 AM Interpretation: Performing Lab:[facility], [address] [place] [phone] Notes/Report: Hemoglobin A1c % 6.1 <6.0 % [...] average glucose, using the formula of the I2T-Uvwdtux Average Glucose study (ADAG), Diabetes Care, Vol.31,#8, Sep. 2007 XR clavicle RT Reviewed date:10/17/2024 06:49:30 PM Interpretation: Performing Lab: Notes/Report: [facility] [address] [facility] [address] [place], [place] [address] XRay Report Signed Patient: Mikal Elizondo MR#: [id number] : 1950 Acct:[id number] Age/Sex: 74 / M ADM Date: 10/15/24 Loc: HO.HMGCX Attending Dr: Isela Reyes PA-C Ordering Physician: ISELA REYES Date of Service: 10/15/24 Procedure(s): XR clavicle RT Accession Number(s): [id number] cc: Kiko Coats MD; ISELA REYES EXAMINATION: [...] OV> 10/15/24 0941 DD/ 7 TD/TT: 10/15/24919 Chemical Lab Supervisor: [facility] Adult Primary Care [facility] [place] [address] XRay Report Signed Patient: Yadira Elizondo MR#: [id number] : 1950 Acct:[id number] Age/Sex: 74 / M ADM Date: 10/15/24 Loc: HO.HMGCX Attending Dr: Anna Reyes PA-C Ordering Physician: ISELA REYES Date of Service: 10/15/24 Procedure(s): XR cla vicle RT Accession Number(s): [id number] cc: Kiko Coats MD; ISELA REYES EXAMINATION: [...] in OV> 10/15/2441 DD/ 7 TD/TT: 10/15/24919 Chemical Lab Supervisor: Glucose, Whole Blood Reviewed date:01/07/2025 01:11:13 PM Interpretation: Performing Lab:[facility], [address] [place] [phone] Notes/Report: Glucose, Whole Blood 149 60-115 mg/dL METER # : [id number] Pathology Reviewed date:01/12/2025 05:49:16 PM Interpretation: Performing Lab:[facility], [address] [place] [phone] Notes/Report: ----- Name: Ce Elizondo rose Age/Sex: 74/M : 1950 Unit#: [id number] Attend Dr: Zohaib Mosher MD Re01/07/25 Status : [facility] Location: [facility] Disch: ----- SPEC : [id number] RECD : 01/08/250 STATUS: [facility] NUM: [id number] ANGELICA: 01/07/25-[address] [facility] [address]: Zohaib Mosher MD ENTERED: 01/08/25- 28 SP TYPE: Surgical OTHR DR: Kiko Coats [...] in thickness. Mass lesions are not identified. Wound Care Nurse sections, including the inked cystic duct margin, are submitted in janay Wu (WALLY) IHC S/NG Disclaimer NOTE: Unless otherwi se stated, all tissue is formalin-fixed and paraffin-embedded. Some or all of the immunohistochemical tests reported herein may have been developed and their performance characteristics determined by [facility]. They have not been cleared or appr [place]ermania by the U.S. Food and Drug Administration (FDA). However, the FDA has determined that such clearance or approval is not necessary. This laboratory is certified under the Clinical Laboratory Improvement Amendments of 1988 (CLIA) as qualified to perform high complexity clinical laboratory testing. Copies To: Kiko Coats MD [facility] [address] [place] [address] CONTINUED ON NEXT PAGE ----- Name: Ce Elizondo rose Age/Sex: 74/M : 1950 Unit#: [id number] Attend Dr: Zohaib Mosher MD Re01/07/25 Status : [facility] Location: [facility] Disch: ----- SPEC : [id number] RECD : 01/08/25 STATUS: [facility] NUM: [id number] ANGELICA: 01/07/25-[address] [facility] [address]: Zohaib Mosher MD ENTERED: 01/08/25-01 16 SP TYPE: Surgical OTHR DR: Kiko Coats MD ORDERED: Gross Micro L3 Copies To: (Continued) Zohaib Mosher MD [facility] [address] [place] [address] ----- Signed (signature on file) Marianela Chau MD 01/12/25 1155 ----- END OF REPORT Complete Blood Count Auto Di ff Reviewed date:01/14/2025 05:00:01 PM Interpretation: Performing Lab:[facility], [address] [place] [phone] Notes/Report: White Blood Count 15.4 4.8-10.8 X10*3/uL [...] INR Reviewed date:01/14/2025 04:58:46 PM Interpretation: Performing Lab:[facility], [address] [place] [phone] Notes/Report: Prothrombin Time 16.6 11.2-13.5 SEC INTERNATIONAL [...] Time Reviewed date:01/14/2025 04:55:47 PM Interpretation: Performing Lab:[facility], [address] [place] [phone] Notes/Report: Partial Thromboplastin Time 33.4 26.7-34.1 SEC Liver Panel Reviewed date:01/14/2025 04:59:14 PM Interpretation: Performing Lab:[facility], [address] [place] [phone] Notes/Report: Bilirubin Total 0.5 0.0-1.0 mg/dL Bilirubin Direct 0.2 0.0-0.5 mg/dL Aspartate Amino Transferase 30 5-37 U/L Alanine Aminotransferase 29 0-40 U/L Total Protein 7.5 6.5-8.0 g/dL Albumin Level 4.3 3.5-5.0 g/dL Alkaline Phosphatase 113 39-117 U/L Basic Metabolic Panel Reviewed date:01/14/2025 04:59:40 PM Interpretation: Performing Lab:[address] [address] Notes/Report: Sodium 137 135-145 mmol/L Potassium 4.0 [...] Acid Reviewed date:01/14/2025 04:59:07 PM Interpretation: Performing Lab:[address] [address] Notes/Report: Lactic Acid 2.4 0.5-2.0 mmol/L Critical value for LACTIC: Results called to and read back by: TAYE Person calling: DEEP Date: 01/14/25 Time: 1229 Magnesium Reviewed date:01/14/2025 04:59:00 PM Interpretation: Performing Lab:[address] [address] Notes/Report: Magnesium 2.1 1.6-2.6 mg/dL Lipase Reviewed date:01/14/2025 04:58:52 PM Interpretation: Performing Lab:[address] [address] Notes/Report: Lipase 50 8-78 U/L Gram stain Reviewed date:01/19/2025 05:27:21 PM Interpretation: Performing Lab:[address] [address] Notes/Report: GALLBLADDER FOSSA COLLECTION gall bladder fossa collection Gram stain Gram stain results: Gram stain 1+ polys Gram stain 1+ red blood cells Gram stain No organisms seen UA CC w/rflx Micro + Cult Reviewed date:01/14/2025 04:58:30 PM Interpretation: Performing Lab:[address] [address] Notes/Report: [id number] Urine, Clean Catch Color Urine Yellow Appearance Urine Clear PH 7.5 5.0-9.0 Glucose Urine UA 500 Negative mg/dL Urine Blood Negative Negative Specific [place] - Urine 1.020 1.005-1.025 Urine Protein Negative Neg-Trace mg/dL Urine Ketones Negative Negative mg/dL Nitrite Urine Negative Negative Leukocyte Esterase Urine Negative Negative Blood Culture (First) Reviewed date:01/19/2025 05:26:58 PM Interpretation: Performing Lab:[address] [address] Notes/Report: Blood Culture (First) No growth after 5 days. Blood Culture (Second) Reviewed date:01/19/2025 05:26:48 PM Interpretation: Performing Lab:[address] [address] Notes/Report: Blood Culture (Second) No growth after 5 days. Lactic Acid-LAB USE ONLY Reviewed date:01/14/2025 04:55:59 PM Interpretation: Performing Lab:[address] [address] Notes/Report: Lactic Acid-LAB USE ONLY 1.0 0.5-2.0 mmol/L Routine Culture Reviewed date:01/19/2025 05:27:13 PM Interpretation: Performing Lab:[address] [address] Notes/Report: GALLBLADDER FOSSA COLLECTION gall bladder fossa collection Routine Culture No growth after 2 days Anaerobic Culture Reviewed date:01/19/2025 05:27:30 PM Interpretation: Performing Lab:[facility], [address] [place] [address] Notes/Report: GALLBLADDER FOSSA COLLECTION gall bladder fossa collection Anaerobic Culture NO GROWTH AFTER [address] drain peritoneum Reviewed date:01/17/2025 03:47:04 PM Interpretation: Performing Lab: Notes/Report: [address] [address] [address] Scan Report Signed Patient: Mikal Elizondo MR#: [id number] : 1950 Acct:[id number] Age/Sex: 74 / M ADM Date: 01/14/25 Loc: HO.S3 374-[address]: Zohaib Mosher MD Ordering Physician: Zohaib Mosher MD Date of Service: 01/14/25 Procedure(s): CT drain peritoneum Accession Number(s): [id number] cc: Kiko Coats MD; Zohaib Mosher MD Report Number: [id number]: Total DLP = 311.00 mGy-cm Reason for [...] aspirated. Over an 018 wire, a 6 Norwegian pigtail drainage catheter was positioned in the [...] 01/16/25 0859 DD/ 1638 TD/TT: 01/14/25 1741 Chemical Lab Supervisor: [place] [address] CT Scan Report Signed Patient: Yadira Elizondo MR#: [id number] : 1950 Acct:[id number] Age/Sex: 74 / M ADM Date: 01/14/25 Loc: .S3 374-[address]: Marisela Mosher MD Ordering Physician: Zohaib Mosher MD Date of Service: 01/14/25 Procedure(s): CT cory in peritoneum Accession Number(s): [id number] cc: Kiko Coats MD; Zohaib Mosher MD [...] Over an 0 18 wire, a 6 Norwegian pigtail drainage catheter was positioned in the [...] by: Danielle Valentine MD 01/16/2025 08:59 AM [facility] Dictated By: Danielle Valentine MD Signed By: <Electronically signed by Danielle Valentine MD in OV> 01/16/25 0859 DD/ 1638 TD/TT: 01/14/25 1741 Chemical Lab Supervisor: [place]ACORT[place] CT abdomen pelvis w con Reviewed date:01/14/2025 04:58:12 PM Interpretation: Performing Lab: Notes/Report: [address] [address] [address] Scan Report Signed Patient: Mikal Elizondo MR#: [id number] : 1950 Acct:[id number] Age/Sex: 74 / M ADM Date: 01/14/25 Loc: HO.ED Attending Dr: Ordering Physician: Zohaib Mosher MD Date of Service: 01/14/25 Procedure(s): CT abdomen pelvis w IV con Accession Number(s): [id number] cc: Kiko Coats MD; Zohaib Mosher MD Report Number: [id number]: Total DLP = 409.00 mGy-cm Reason for Exam: postop pain after lap annamarie EXAMINATION: CT ABDOMEN AND PELVIS WITH CONTRAST CLINICAL INFORMATION: Postoperative pain after laparoscopic cholecystectomy. COMPARISON: CT abdomen and pelvis 07/25/2024 from [facility]. TECHNIQUE: Multidetector volumetric images were obtained [...] by: Fito Olivares MD 01/14/2025 02:06 PM [facility] Dictated By: Fito Olivares MD Signed By: <Electronically signed by Fito Olivares MD in OV> 01/14/25 1406 DD/ 1306 TD/TT: 01/14/25 1334 Chemical Lab Supervisor: [address] [address] [address] Scan Report Signed Patient: Yadira Elizondo MR#: [id number] : 1950 Acct:[id number] Age/Sex: 74 / M ADM Date: 01/14/25 Loc: .ED Attending Dr: Ordering Physician: Zohaib Mosher MD Date of Service: 01/14/25 Procedure(s): CT abd omen pelvis w IV con Accession Number(s): [id number] cc: Kiko Coats MD; Zohaib Mosher MD Report Number: [id number]: Total DLP = 409.00 mGy-cm Reason for Exam: pos top pain after lap annamarie EXAMINATION: CT ABDOMEN AND PELVI S WITH CONTRAST CLINICAL INFORMATION: Postoperative pain a fter laparoscopic cholecystectomy. COMPARISON: CT abdomen and pelvi s 07/25/2024 from [facility]. TECHNIQUE: Multidetector volume tric images were [...] by: Fito Olivares MD 01/14/2025 02:06 PM [facility] Dictated By: Fito Olivares MD Signed By: <Electronically signed by Fito Olivares MD in OV> 01/14/25 1406 DD/ 1306 TD/TT: 01/14/25 1334 Chemical Lab Supervisor: Complete Blood Count no Diff Reviewed date:01/17/2025 03:44:18 PM Interpretation: Performing Lab:[facility], [address] [place] [address] Notes/Report: White Blood Count 12.1 4.8-10.8 X10*3/uL [...] Panel Reviewed date:01/17/2025 03:49:04 PM Interpretation: Performing Lab:[facility], [address] [place] [address] Notes/Report: Sodium 139 135-145 mmol/L Potassium 3.8 [...] gy Reviewed date:01/17/2025 03:47:16 PM Interpretation: Performing Lab:[facility], [address] [place] [address] Notes/Report: Hold Lav - Possible Hematology SEE NOTE Specimen will be held untested for 8 hours. Call Hematology if testing is desired. Liver Panel Reviewed date:01/17/2025 03:43:59 PM Interpretation: Performing Lab:[facility], [address] [place] [address] Notes/Report: Bilirubin Total 0.3 0.0-1.0 mg/dL Bilirubin Direct 0.1 0.0-0.5 mg/dL Aspartate Amino Transferase 40 5-37 U/L Alanine Aminotransferase 35 0-40 U/L Total Protein 6.7 6.5-8.0 g/dL Albumin Level 3.9 3.5-5.0 g/dL Alkaline Phosphatase 84 39-117 U/L Glucose, Whole Blood Reviewed date:01/22/2025 12:43:39 PM Interpretation: Performing Lab:[facility], [address] [place] [phone] Notes/Report: Glucose, Whole Blood 96 60-115 mg/dL METER # : [id number] CT abdomen wo con Reviewed date:01/22/2025 12:43:30 PM Interpretation: Performing Lab: Notes/Report: [address] [place] [address] CT Scan Report Signed Patient: Mikal Elizondo MR#: [id number] : 1950 Acct:[id number] Age/Sex: 74 / M ADM Date: 01/21/25 Loc: HO.SSS Attending Dr: Zohaib Mosher MD Ordering Physician: Zohaib Mosher MD Date of Service: 01/21/25 Procedure(s): CT abdomen wo IV con Accession Number(s): [id number] cc: Kiko Coats MD; Zohaib Mosher MD Report Number: [id number]: Total DLP = 89.00 mGy-cm Reason for [...] by: Mario Gonzales MD 01/21/2025 05:48 PM [facility] Dictated By: Mario Gonzales MD Signed By: <Electronically signed by Mario Gonzales MD in OV> 01/21/25 1748 DD/ 1534 TD/TT: 01/21/25 1638 Chemical Lab Supervisor: [address] [address] [address] Scan Report Signed Patient: Yadira Elizondo MR#: [id number] : 1950 Acct:[id number] Age/Sex: 74 / M ADM Date: 01/21/25 Loc: HO.SSS Attending Dr: Marisela Mosher MD Ordering Physician: Zohaib oMsher MD Date of Service: 01/21/25 Procedure(s): CT abd omen wo IV con Accession Number(s): [id number] cc: Kiko Coats MD; Zohaib Mosher MD [...] 01/21/25 1748 DD/ 1534 TD/TT: 01/21/25 1638 Chemical Lab Supervisor: Tommie Castillo Reviewed date:01/23/2025 06:38:18 PM Interpretation: Performing Lab:[facility], [address] [place] [phone] Notes/Report: Tommie Castillo See Note Specimen held untested for 24 hours; Call to request Chemistry testing. US abdomen limited Reviewed date:02/02/2025 11:43:59 AM Interpretation: Performing Lab: Notes/Report: [address] [address] Ultrasound Report Signed Patient: Mikal Elizondo MR#: [id number] : 1950 Acct:[id number] Age/Sex: 74 / M ADM Date: 01/31/25 Loc: HO.US Attending Dr: Zohaib Mosher MD Ordering Physician: Zohaib Mosher MD Date of Service: 01/31/25 Procedure(s): US abdomen limited Accession Number(s): [id number] cc: Kiko Coats MD; Zohaib Mosher MD Reason for Exam: T81.89XA - Other complications of procedures, not elsewhere classified, ... EXAMINATION: US ABDOMEN LIMITED CLINICAL INFORMATION: T81.89XA. COMPARISON: Correlated to CT dated January 21, 2025. TECHNIQUE: Real-time ultrasound of the right upper abdomen using grayscale technique. FINDINGS: PANCREAS: No peripancreatic fluid collections. LIVER: Liver measures 15 cm. Coarse echotexture. Subtle nodular surface. No solid or cystic lesion. No intrahepatic biliary ductal dilatation. Main portal vein is patent with normal hepatopedal flow direction. GALLBLADDER: Absent. COMMON BILE DUCT: 3 mm.. RIGHT KIDNEY: 10 cm. Normal echotexture. Renal cortical thickness is normal. No hydronephrosis. No solid or cystic lesion.. FREE FLUID: None. The infrarenal mid segment of the abdominal aorta measures 6 x 4.6 cm in maximum dimension. US/US abdomen limited IMPRESSION: Hepatocellular disease versus and steatosis. Status post cholecystectomy. No choledocholithiasis. No hydronephrosis, right kidney. No ascites. 6 x 4.6 cm infrarenal abdominal aortic aneurysm. Please refer to the CT abdomen demonstrated a endotracheal aorta graft stenting. Electronically signed by: Que Lopez MD 02/02/2025 09:36 AM EST Dictated By: Que Wilkinson MD Signed By: <Electronically signed by Que Felix MD in OV> 02/02/2536 DD/ 0 TD/TT: 01/31/25913 Chemical Lab Supervisor: [place] [address] Ultrasound Report Signed Patient: Yadira Elizondo MR#: [id number] : 1950 Acct:[id number] Age/Sex: 74 / M ADM Date: 01/31/25 Loc: HO.US Attending Dr: Marisela Mosher MD Ordering Physician: Zohaib Mosher MD Date of Service: 01/31/25 Procedure(s): US abd omen limited Accession Number(s): [id number] cc: Kiko Coats MD; Zohaib Mosher MD Reason for Exam: T81 .89XA - Other complications of procedures, not elsewhere classified, ... EXAMINATION: US ABDOMEN LIMITED CLINICAL INFORMATION: T81.89XA. COMPARISON: Correlated to CT aroldo ed January 21, 2025. TECHNIQUE: Real-time ultrasound of the right upper abdomen using grayscale technique. FINDINGS: PANCREAS: No peripancreatic fluid collections. LIVER: Liver measure s 15 cm. Coarse echotexture. Subtle nodular surface. No solid or cystic lesion. No intrahepatic biliary ductal dilatation. Main por edna vein is patent with normal hepatopedal flow direction. GALLBLADDER: Absent. COMMON BILE DUCT: 3 mm.. RIGHT KIDNEY: 10 cm. Normal echotexture. Renal cortical thickness is normal. No hydronephrosis. No solid or cystic lesion.. FREE FLUID: None. The infrarenal mid segment of the abdominal aorta measures 6 x 4.6 cm in maximum dimension. U S/US abdomen limited IMPRESSION: Hepatocellular disea se versus and steatosis. Status post cholecystectomy. No choledocholithiasis. No hydronephrosis, r ight kidney. No ascites. 6 x 4.6 cm infrarena l abdominal aortic aneurysm. Please refer to the CT abdomen demonstrated a endotracheal aorta graft stenting. Electronically emy d by: Que Lopez MD 02/02/2025 09:36 AM EST Dictated By: Que Grullon MD Signed By: <Electronically signed by Que Felix MD in [place]> 02/02/25935 DD/ 0 TD/TT: 01/31/25913 Chemical Lab Supervisor: Reason For Referral Reason please zenia fernandes Diagnosis 1 Esophageal ulcer wit hout bleeding (K22.10) Referral Organization Kiko Coats MD Referring Provider First Name Kiko Referring Provider Last Name Jorge L Referring Provider Speciality Internal M edicine Referred Provider [facility] , [facility] Referred Provider Specialty Gastroentero logy [...] 11/19/2012 Administered [place] Fluarix Quadrivalent IM Intramuscular 11/14/2013 Adminmerye red Fluarix Quadrivalent IM Intramuscular 12/14/2014 Admintroy red Prevnar 13 Unknown 07/22/2014 [facility]ered [facility] [place] PPSV23 (Pnemovax) IM Intramuscular 10/11/2015 Administered Fluarix Quadrivalent IM Intramuscular 10/26/2015 Admintroy red Shingles Unknown 11/04/2012 Administ[place] Fluarix Quadrivalent IM Intramuscular 01/19/2017 Adminmerye red Fluarix Quadrivalent IM Intramuscular 12/03/2017 Adm[facility]roy red TDaP Unknown 07/30/2006 Administered [place] Fluarix Quadrivalent IM Intramuscular 11/05/2018 Adm[facility]roy smiley [place] Influenza High Dose Unknown 11/04/2019 [facility]ered [facility] [place] Shingrix Unknown 11/04/2019 [facility]ered [facility] Unknown 02/25/2020 [facility]ered [facility] SARS-COV-2 Moderna Unknown [...] Status Risk Notes Problem Carotid artery disease (040056439) Carotid artery disease (I77.9) Active confirmed Problem Dysphagia (41815639) Dysphagia (R13.10) Active confirmed Problem 477574075 Hypomagnesemia (E83.42) Active confirmed Problem 92452036 Hypercalcemia (E83.52) Active confirmed Problem 71089774 Other chronic pa in (G89.29) Active confirmed Problem 8951203 Panlobular emphysema (J43.1) Active confirmed Problem 231142626065648 Erectile dysfunction due to arterial insufficiency (N52.01) Active confirmed Problem 201166235 Lumbar disc disease (M51.9) Active confirmed Problem 07796819 Essential hypertension (I10) Active confirmed Problem 316894105 Prostate cancer (C61) Active confirmed Problem Psoriasis (8057425) Psoriasis (L40.9) Active co nfirmed Problem 63362249 Type 2 diabetes mellitus without complication (E11.9) Active confirmed Problem 64464136 Abdominal aortic aneurysm without rupture (I71.4) Active confirmed Problem 614560494 Low HDL (under 4 0) (E78.6) Active confirmed Problem 318898443 Anemia, unspecified anemia type (D64.9) Active confirmed Problem 527082228 High triglycerid es (E78.1) Active confirmed Problem 784154367 Cervical disc disease (M50.90) Active confirmed Problem 39975131 Intrinsic eczema (L20.84) Active confirmed Problem 647202389 Raynauds disease without gangrene (I73.00) Active confirmed Problem Gallstone (404789392) Gall stones (K80.20) Active confirmed Problem 483017235 COPD exacerbatio n (J44.1) Active confirmed Problem Atherosclerosis (43808833) Atherosclerosis (I70.90) Active confirmed Problem Leukocytosis (672953849) Elevated WBC count (D72.829) Active confirmed Problem 186212940 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) Active confirmed Problem Disorder of biliary tract (804383301) Bile leak (K83.9) Active confirmed Problem 394005550 Nodule of tongue (R22.0) Active confirmed Problem 50268705 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) Active confirmed Problem 280652439 COPD with exacerbation (J44.1) Active confirmed Problem 2252385118504208 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) Active confirmed Problem 616740768 Low blood magnesium (R79.0) Active confirmed Problem 788185205 Age-related incipient cataract of both eyes (H25.093) Active confirmed Problem 396776680 Arthritis, 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) Active confirmed Problem Ulcer of esophagus (37504705) Esophageal ulcer without bleeding (K22.10) Active confirmed Vital Signs Blood pressure diastolic 66 mm Hg 01/30/2025 Height 70 in 01/30/2025 Blood pressure systolic 142 mm Hg 01/30/2025 Weight 154 lbs 01/30/2025 BMI 22.09 kg/m2 01/30/2025 Encounters Encounter Location Date Provider Diagnosis Kiko Coats MD [address] [place] [address] [id number] 11/13/2024 Kiko Coats Type 2 diabetes mellitus without complication E11.9 ; Encounter for administration of vaccine Z23 ; Essential hypertension I10 ; Low HDL (under 40) E78.6 ; Anemia, unspecified anemia type D64.9 and High triglycerides E78.1 Kiko Coats MD [address] [place] [address] [id number] 01/30/2025 Kiko Coats Abdominal pain R10.9 and Weight loss R63.4 Kiko Coats MD [address] [place] [address] [id number] 02/25/2024 Kiko Coats COPD with exacerbati on J44.1 Kiko Coats MD [address] [place] [address] [id number] 03/06/2024 Kiko Coats Lumbar disc disease M51.9 and Bronchitis J40 Kiko Coats MD [address] [place] [address] [id number] 05/09/2024 Kiko Coats Panlobular emphysema J43.1 ; Type 2 diabetes mellitus without complication E11.9 and Low HDL (under 40) E78.6 Kiko Coats MD [address] [place] [address] [id number] 08/04/2024 Kiko Coats Esophageal ulcer without bleeding K22.10 ; Panlobular emphysema J43.1 and Essential hypertension I10 Kiko Coats MD [address] [place] [address] [id number] 11/17/2024 Kiko Coats Panlobular emphysema J43.1 ; Tinea B35.9 ; Type 2 diabetes mellitus without complication E11.9 ; Prostate cancer C61 ; Essential hypertension I10 ; High triglycerides E78.1 ; Anemia, unspecified anemia type D64.9 and Depression screening Z13.31 Kiko Coats MD [address] [place] [address] [id number] 12/12/2024 Kiko Coats Gall stones K80.20 Kiko Coats MD [address] [place] [address] [id number] 01/19/2025 Kiko Coats Bile leak K83.9 Kiko Coats MD [address] [place] [address] [id number] 01/23/2025 Kiko Coats Abdominal pain R10.9 and Weight loss R63.4 Kiko Coats MD [address] [place] [address] [id number] 03/14/2024 Kiko Coats Lumbar disc disease M51.9 Kiko Coats MD [address] [place] [address] [id number] 07/24/2024 Kiko Coats MD [address] [place] [address] [id number] 07/31/2024 Kiko Coats MD [address] [place] [address] [id number] 09/19/2024 Kiko Coats MD [address] [place] [address] [id number] 10/07/2024 Kiko Coats MD [address] [place] [address] [id number] 12/25/2024 Kiko Coats MD [address] [place] [address] [id number] 12/26/2024 Kiko Coats MD [address] [place] [address] [id number] 01/01/2025 Kiko Coats MD [address] [place] [address] [id number] 02/02/2025 Kiko Coats MD [address] [place] [address] [place] [id number] 11/07/2024 Kiko Coats Assessments Encounter Date Diagnosis (ICD Code) Assessment Notes Treatment Notes Treatment Clinical Notes Section Notes 11/13/2024 Type 2 diabetes mellitus without complication (ICD-10 - E11.9) 11/13/2024 Encounter for administration of vaccine (ICD-10 - Z23) 01/30/2025 Abdominal pain (ICD-10 - R10.9) seems to be improving 01/30/2025 Weight loss (ICD-10 - R63.4) getting better with protein drinks 02/25/2024 COPD with exacerbation (ICD-10 - J44.1) patient verbalized understanding of medication and directions for use 03/06/2024 Lumbar disc disease (ICD-10 - M51.9) 03/06/2024 Bronchitis (ICD-10 - J40) patient verbalized understanding of medication and directions for use. x-ray order faxed to [facility] 05/09/2024 Panlobular emphysema (ICD-10 - J43.1) doing well using his updrafts once a day, will continue current regiment 08/04/2024 Esophageal ulcer without bleeding (ICD-10 - K22.10) need results of biopsy/ will send for results 11/17/2024 Panlobular emphysema (ICD-10 - J43.1) stable, will continue current regiment 11/17/2024 Tinea (ICD-10 - B35.9) 12/12/2024 Gall stones (ICD-10 - K80.20) order faxed to [facility] cs dept 01/19/2025 Bile leak (ICD-10 - K83.9) pending diagnostic testing Total time spent on the date of the encounter is 35 minutes including both face to face time spent and time spent reviewing documentation, pertinent lab data, studies and counseling the patient. 01/23/2025 Abdominal pain (ICD-10 - R10.9) Total time spent on the date of the encounter is 35 minutes including both face to face time spent and time spent reviewing documentation, pertinent lab data, studies and counseling the patient. 01/23/2025 Weight loss (ICD-10 - R63.4) 03/14/2024 Lumbar disc disease (ICD-10 - M51.9) [...] VIEW PA & LAT 04/23/2023 US ABD 12/26/2022 US ABD 12/12/2024 Lipase 01/23/2025 ECG 30 day event monitor 01/10/2022 CT lumbar spine wo con 05/18/2022 MR elbow RT wo/w con 2022 MR lumbar spine wo con 11/13/2023 XR elbow RT min 3V 2022 Next Appt Details Provider Name:Kiko De Leon ier, 02/16/2025 10:15:00 AM, [address], [address], [place], [id number], Provider Name:Kiko De Leon ier, 05/14/2025 07:45:00 AM, [address] [facility], [address], [place], [id number], Provider Name:Kiko De Leon ier, 05/21/2025 09:00:00 AM, [address], [address], [place], [id number], Provider Name:Kiko De Leon ier, 12/10/2025 07:15:00 AM, [address] [place] [address], [address], [place], [id number], Provider Name:Kiko De Leon ier, 12/17/2025 09:30:00 AM, [address] [facility], [address], [place], [id number], Insurance Providers Payer Name Payer Address Payer Phone Subscriber Number Group Number Insured Name Patient Relationship to Insured Coverage Start Date Coverage End Date [employer] [address] [place] [address] [id number] FransicoMikal brewer Self - patient is the insured [employer]EF[employer] PLAN [address] [place] [address] [phone] [id number] [phone] NallelykristinMikal brewer Self - patient is the insured Medical (General) History Medical History History ICD Code esophageal stricture hypercholesterolemia hypertension asthma - mild intermittent colonoscopy 02/2014 and [place] probably not able to access those records but will be followed by them. possibly someone in [facility] did it colonoscopy and endoscopy 2022
--- OUTSIDE RECORDS SUMMARY | 2025-02-05 13:22 | XMS_ITS | Encounter Summary ---
Author Organization [facility] Address [address] [place] [phone] Phone Care Team Providers Care Winemaker Name Role Phone Lindy Buckner MD Primary Care Provider Encounter Details Date Type Department Care Team (Late st Contact Info) Description 06/09/2022 Procedure Pass [facility] Endoscopy Admitting Dept Virtual Department [address] [place] [id number] Social History Tobacco Use Types Packs/Day Years [...] on filedocumented in this encounter Care Teams Winemaker Relationship Specialty Start Date End Date Lindy Buckner MD [address] [place] [address] PCP - General Internal Medicine 06/09/22 documented as of this encounter Additional Source Comments The information contained in this document represents components of the legal health record. It is not the complete legal health record.[facility]
--- OUTSIDE RECORDS SUMMARY | 2025-02-05 13:23 | XMS_ITS | Patient Health Record ---
Author Organization [facility] Address [address] [place] [phone] Support Name Relationship Address Phone QUENTIN DENNY Guarantor Unknown Reason For Referral No Information Plan Of Treatment No Information
--- OUTSIDE RECORDS SUMMARY | 2025-02-05 13:23 | XMS_ITS | Clinical Summary ---
Author Organization [facility] Address [address] [place] [address] Phone Care Team Providers Care Insurance Legal Assistant Name Role Phone Lindy Buckner MD [...] this topic Medical Devices Implanted Type Area Psychiatry Instructor Device Identifier Shelf Expiration Date Model / [...] Most Recently Relevant to Health Maintenance Insurance [facility] Care Teams Insurance Legal Assistant Relationship Specialty Start Date End Date Lindy Buckner MD [address] [place] [address] PCP - General Internal Medicine 06/09/22 Additional Source Comments The information contained in this document represents components of the legal health record. It is not the complete legal health record.[facility]
--- OUTSIDE RECORDS SUMMARY | 2025-02-05 13:23 | XMS_ITS | Encounter Summary ---
Author Organization [facility] Address [address] [place] [phone] Phone Care Team Providers Care Research Staff Member Name Role Phone Lindy Buckner MD Primary Care Provider Encounter Details Date Type Department Care Team (Late st Contact Info) Description 04/13/2023 Procedure Pass [facility] Endoscopy Admitting Dept Virtual Department [address] [place] [address] Social History Tobacco Use Types Packs/Day Years [...] on filedocumented in this encounter Care Teams Research Staff Member Relationship Specialty Start Date End Date Lindy Buckner MD [address] [place] [address] PCP - General Internal Medicine 06/09/22 documented as of this encounter Additional Source Comments The information contained in this document represents components of the legal health record. It is not the complete legal health record.[facility]
== END 2025-02-05 10:58 | disposition home or self-care (01) ==
LOC: HO.HGS 10:36
PROVIDERS: PCP Internal Medicine; Visit Provider Surgery
DX: Z90.49 Acquired absence of other specified parts of digestive tract (principal)
CPT/HCPCS: 99024

== ENCOUNTER → 2025-02-05 10:36 | Outpatient (BNVA) | payer MEDICARE, OTHER, SELFPAY | PROVIDERS: PCP Internal Medicine; Visit Provider Surgery | DX: I10 Essential (primary) hypertension (principal); Z87.891 Personal history of nicotine dependence; Z90.49 Acquired absence of other specified parts of digestive tract; Z98.890 Other specified postprocedural states | CPT/HCPCS: 99212 ==